=== PATIENT | female | born 1985 | race Caucasian/White ===

== ENCOUNTER 2017-10-04 23:30 | Emergency (ER) | payer MEDICARE, MEDICAID, SELFPAY ==
[2017-10-04 23:31] VITALS: BP 163/109; PULSE 110; RESP 20; TEMP 36.7; O2SAT 96; BMI 42.4
--- NOTE | 2017-10-04 23:47 | ED.VISSUMM ---
- ER Visit Summary Date of Service: 10/04/17 Chief Complaint: Abscess History of Present Illness: The patient is a 32 F increasing abscess pelvic region over the past week. History of diabetes. Using her doxycycline twice a day for the past 3 days. History of multiple abscesses in the past. States a year ago abscess in the region which progressed to her side requiring surgery by Dr. Booth. Denies fever. No nausea or vomiting. No active drainage. Physical Examination: General: Alert and oriented ?3, no acute distress HEENT: Normocephalic, atraumatic. Moist mucosa membranes Neck: supple, nontender. Cardiovascular: Regular rate and rhythm, no murmurs Respiratory: Normal breath sounds, symmetric, no distress Abdomen: Soft, nontender, nondistended Extremities: Nontender, no edema, pulses intact ?4 Neuro: no focal neurological deficits. Skin: 1.5 cm induration fluctuance mid suprapubic pelvis region. Tender palpation. Mild surrounding erythema of 3 cm in diameter, no active drainage. Test Results: Wound culture pending Emergency Department Course and Treatment: Patient presents abscess pelvic region. Started on Keflex along with her doxycycline. Abscess incised and drained. Copious exudates. Due to her history of diabetes and necrotizing infection a year ago, I did obtain wound cultures. There is no streaking on examination. Tenderness only around the site and and not up the abdomen or around the sides. No crepitus palpated. Discussed with patient continue antibiotics, of any worsening symptoms to return for reevaluation. Otherwise follow-up with her PCP. All questions were answered. Treatment Plan: Antibiotics, wound care Disposition: Discharge Impression: Pelvic abscess status post incision and drainage This note was generated with [employer] dictation software. It may contain incorrect words, spelling, and punctuation that were not noted in review of the chart prior to signing ED Disposition - Plan for ED Patient: Disposition: Home or Assisted Living Chief Complaint: Abscess Diagnosis: Pelvic abscess Instructions: ED Abscess IandD Prescriptions: Cephalexin [Keflex] 500 mg PO 4X/DAY #40 capsule Referrals: Fartun Murrell MD [Primary Care Provider] - 3-5 Days Additional Instructions: Continue your doxycycline, continue prescription of Keflex. Follow-up with your doctor, return if any worsening symptoms.
[2017-10-04] MEDS: Cephalexin 250 MG Capsule 500 MG PO (23:58)
[2017-10-05 00:49] VITALS: BP 150/109; PULSE 96; RESP 17; O2SAT 98
--- NOTE | 2017-10-05 00:49 | ED.RN ---
PT GIVEN WRITTEN AND VERBAL DISCHARGE INSTRUCTIONS. PT VERBALIZES UNDERSTANDING. PT GIVEN MESH UNDIES AND AD PLACED FOR DRESSING TO ALLOW DRAINAGE FREELY FROM WOUND PER DR. THORNE. PT AMBULATORY HOME BY SELF.
== END 2017-10-05 00:51 | disposition home or self-care (01) ==
PROVIDERS: Emergency Provider Emergency Medicine; Family Provider Internal Medicine; PCP Internal Medicine
DX: N73.9 Female pelvic inflammatory disease, unspecified (principal); K21.9 Gastro-esophageal reflux disease without esophagitis; E11.9 Type 2 diabetes mellitus without complications; I10 Essential (primary) hypertension; M79.7 Fibromyalgia; E28.2 Polycystic ovarian syndrome; F31.9 Bipolar disorder, unspecified; Z86.14 Personal history of Methicillin resistant Staphylococcus aureus infection; Z86.718 Personal history of other venous thrombosis and embolism; Z87.2 Personal history of diseases of the skin and subcutaneous tissue; Z87.891 Personal history of nicotine dependence; Z79.4 Long term (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 of insulin; Z79.84 Long term (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 of oral hypoglycemic drugs; Z79.899 Other long term (current) drug therapy
CPT/HCPCS: 45000; 87070; 87077; 87205; 99283

== ENCOUNTER → 2017-11-06 13:30 | Outpatient (CLI) | payer MEDICARE, MEDICAID, SELFPAY ==
[2017-10-01 16:32] LABS: Hematocrit 42.5 % (37-47); Hemoglobin 14.9 g/dl (12.0-15.0); Mean Corp Hgb Conc 35.1 g/gl (32-36); Mean Corpuscular Hgb 28.4 pg (27.0-32.0); Mean Corpuscular Volume 81.1 fL (81-99); Mean Platelet Vol. 13.3 fl (6.2-12.0); Platelet Count 137 K/mm3 (150-450); RBC Distribution Width CV 13.8 % (11.6-14.6); RBC Distribution Width SD 39.8 fl (35.1-43.9); Red Blood Count 5.24 M/mm3 (4.2-5.4)
[2017-10-01 16:41] LABS: Scan Indicated on CBC? Y/N NO
[2017-10-01 17:03] LABS: Anion Gap 9 (5-15); BUN 18 mg/dL (7-18); Calcium,Total 8.4 mg/dL (8.5-10.1); Chloride 100 mmol/L (98-107); Creatinine, Serum 0.94 mg/dL (0.55-1.02); EST Glomerular Filtration Rate 72 mL/min (>60); Est Glom Filt Rate - Afr Amer 87 mL/min (>60); Glucose 425 mg/dL (74-106); Potassium 4.4 mmol/L (3.5-5.1); Sodium Level 133 mmol/L (136-145)
[2017-10-01 17:04] LABS: Hemoglobin A1c 9.8 % (4.2-6.3)
== END ==
PROVIDERS: Family Provider Internal Medicine; PCP Internal Medicine; Visit Provider Obstetrics & Gynecology
DX: Z01.812 Encounter for preprocedural laboratory examination (principal); E11.9 Type 2 diabetes mellitus without complications
CPT/HCPCS: 36415; 80048; 83036; 85027; 86850; 86900

== ENCOUNTER 2018-05-08 08:19 | Emergency (ER) | payer MEDICARE, MEDICAID, SELFPAY ==
[2018-05-08 08:22] VITALS: BP 176/104; PULSE 93; RESP 18; TEMP 36.6; O2SAT 97; BMI 41.3
--- NOTE | 2018-05-08 08:31 | CT_ITS ---
STUDY: CT ABDOMEN AND PELVIS WITHOUT CONTRAST REASON FOR EXAM: Female, 33 years old. RLQ/LEG PAIN. HX-DB, HTN. HX OF ABCESS REPAIR GROIN AREA RADIATION DOSAGE (If Supplied By Facility): CTDIvol = ( 17.07 ) mGy, DLP = ( 1306.75 ) mGycm TECHNIQUE: Transaxial images were obtained from the dome of the diaphragm to the symphysis pubis without oral contrast, and without intravenous contrast. Sagittal and coronal images were reconstructed. Individualized dose optimization techniques were used for this CT. COMPARISON: None. FINDINGS: The visualized lung bases are unremarkable. The visualized portions of the heart are within normal limits. Normal liver. Normal gallbladder and extrahepatic biliary system. Normal spleen. Normal pancreas. Normal bilateral adrenal glands. Normal right kidney. Normal left kidney. Normal visualized stomach. Normal small intestine. Normal colon. There is non-visualization of the appendix. Normal abdominal aorta. Normal inferior vena cava. Normal retroperitoneum. Normal urinary bladder. Normal abdominal wall. Normal osseous structures. CT/Abdomen/Pelvis W IV Cont ONLY IMPRESSION: Normal unenhanced CT of the abdomen and pelvis. Electronically Signed: Omari Vasquez MD at 10:21 EDT Tel , Service support ,
--- NOTE | 2018-05-08 08:33 | ED.DCSUM_ITS ---
- ER Visit Summary Date of Service: 05/08/18 Chief Complaint: Abdominal pain, nausea, vomiting History of Present Illness: The patient is a 33 F with history of diabetes, hypertension, polycystic ovarian syndrome, and prior necrotizing fasciitis from hidradenitis presents to the emergency department with abdominal pain. Patient states she has had symptoms for the past 2 or 3 days. States initially, she does have some diffuse cramping across her abdomen. She been nauseated. She had 4 episodes of vomiting yesterday and today. She feels like she is unable to keep anything down. She did move her bowels normally yesterday. Today, she does feel like she has been constipated. She denies any fever, but has had chills and sweats. She does feel like the pain is migrated more towards her right lower quadrant. She denies any history of prior abdominal surgery. She denies any urinary symptoms. She is not currently sexually active. Physical Examination: Vital signs reviewed General: Well-nourished, well-developed Head: Normocephalic, atraumatic Eyes: Pupils equal and reactive, extraocular muscles intact Neck, supple, no lymphadenopathy Heart: Regular rate and rhythm Respiratory: No distress, clear bilaterally Abdomen: Soft, mildly tender with voluntary guarding right lower quadrant, nondistended, no peritoneal signs Back: Nontender Extremities: Nontender, no edema, no cords Skin: Normal color no rash Neuro: Alert and oriented, no focal or lateralizing deficits Test Results: [] Emergency Department Course and Treatment: The patient presents with nausea, vomiting, abdominal pain. IV was established. She was given antiemetics, fluids and analgesics. She had marked improvement of her symptoms and improvement of her nausea. Screening labs were obtained and were unremarkable. Her urine does show some white cells, but there is no bacteria. She has no flank pain. I do not suspect cystitis or pyelonephritis. CT demonstrates no acute intra-abdominal process. There is no inflammatory change in the right lower quadrant. On reevaluation, she continues to rest comfortably. Her repeat exam is soft nontender. At this time, I do feel the patient is safe for outpatient therapy. I do not suspect a dangerous process, but did securities counselor her that if her symptoms worsen her pain returns or migrates to the right lower quadrant return to the emergency department. She is comfortable with this plan of care. Treatment Plan: [] Disposition: Discharge Impression: 1. Abdominal pain 2. Nausea and vomiting This note was generated with [facility] dictation software. It may contain incorrect words, spelling, and punctuation that were not noted in review of the chart prior to signing ED Disposition - Plan for ED Patient: Chief Complaint: Abd Pain Instructions: ED Abdominal Pain Unkn Cause Prescriptions: Ondansetron [Zofran Odt] 4 mg PO Q8H PRN PRN #10 tab PRN Reason: Nausea Dicyclomine HCl [Bentyl] 20 mg PO TIDAC #20 cap Referrals: Fartun Murrell MD [Primary Care Provider] -
[2018-05-08] MEDS: 0.9% Normal Saline 1,000 ML 1000 ML IV (08:42)
[2018-05-08] MEDS: Morphine 4 MG/ML Syringe IV (08:45)
[2018-05-08] MEDS: Ondansetron 4 MG/2 ML Vial IV (08:45)
[2018-05-08 08:48] LABS: Absolute Lymphocyte Count 1.76 X10^3/ul (0.83-4.51); Absolute Neutrophil Count 4.6 X10^3/uL (2.0-7.7); Basophil# 0.03 X10^3/uL; Basophil% 0.4 % (0-1); Eosinophil# 0.19 X10^3/uL; Eosinophils% 2.7 % (0-5); Hematocrit 42.5 % (37-47); Hemoglobin 14.6 g/dl (12.0-15.0); Lymphocyte # 1.76 X10^3/ul (4.0); Lymphocyte % 25.2 % (19-41); Mean Corp Hgb Conc 34.4 g/gl (32-36); Mean Corpuscular Hgb 28.2 pg (27.0-32.0); Mean Corpuscular Volume 82.2 fL (81-99); Mean Platelet Vol. 12.2 fl (6.2-12.0); Monocyte% 5.7 % (0-10); Neutrophil # 4.59 X10^3/uL (2.7-7.7); Neutrophil % 65.7 % (47-70); Platelet Count 155 K/mm3 (150-450); RBC Distribution Width CV 13.9 % (11.6-14.6); RBC Distribution Width SD 41.2 fl (35.1-43.9); Red Blood Count 5.17 M/mm3 (4.2-5.4)
[2018-05-08 08:51] LABS: POSITIVE COUNT NO; POSITIVE DIFFERENTIAL NO; POSITIVE MORPHOLOGY NO
[2018-05-08 09:03] LABS: ALB/GLOB Ratio 0.9 RATIO (0.9-2.4); AST(SGOT) 44 U/L (15-37); Alanine Aminotransfer ALT/SGPT 60 U/L (13-56); Albumin, Serum 3.4 g/dL (3.2-5.0); Alkaline Phosphatase 63 U/L (45-117); Anion Gap 7 (5-15); BUN 12 mg/dL (7-18); BUN/Creat Ratio 18.7 RATIO (10-20); Calcium,Total 8.2 mg/dL (8.5-10.1); Chloride 104 mmol/L (98-107); Creatinine, Serum 0.64 mg/dL (0.55-1.02); EST Glomerular Filtration Rate 112 mL/min (>60); Est Glom Filt Rate - Afr Amer 136 mL/min (>60); Estimated Creatinine Clearance 123.76 ml/min; Globulin 3.7 g/dL (2.2-4.2); Glucose 265 mg/dL (74-106); Lipase 62 U/L (73-393); Potassium 4.3 mmol/L (3.5-5.1); Protein, Total 7.1 g/dL (6.4-8.2); Sodium Level 137 mmol/L (136-145)
[2018-05-08 09:22] LABS: Pregnancy, Serum, hCG Quali. NEGATIVE Negative (0-9 Nonpreg)
[2018-05-08 10:17] LABS: Mucous, Urine 0 SEEN /hpf (<or=2+)
[2018-05-08 10:20] LABS: Color, Urine Yellow (Yellow); Glucose, Dipstick 1000 mg/dl (Normal); Ketone-Dipstick Negative (Negative); Leukocyte Esterase-Dipstick 100 /ul (Negative); Nitrite-Dipstick Negative (Negative); Occult Blood-Urine 10 /ul (Negative); Protein-Dipstick Negative (Negative); Urine Bilirubin Dipstick Negative (Negative); Urine Clarity Sl. Cloudy (Clear); Urine Urobilinogen Normal (Normal); Urine pH 6.5 (5.0 - 8.0)
[2018-05-08 10:27] LABS: Bacteria 0 SEEN /hpf (None Seen); Red Blood Cells-Urine 0-5 SEEN /hpf (0-5); Squamous Epithelial Cells - UA 0-5 SEEN /hpf (5-10); White Blood Cells 10-25 SEEN /hpf (0-5)
[2018-05-08 10:44] VITALS: BP 122/77; PULSE 68; RESP 15; O2SAT 98
== END 2018-05-08 10:45 | disposition home or self-care (01) ==
LOC: ED 08:47
PROVIDERS: Emergency Provider Emergency Medicine; Family Provider Internal Medicine; PCP Internal Medicine
DX: R10.31 Right lower quadrant pain (principal); R11.2 Nausea with vomiting, unspecified; K59.00 Constipation, unspecified; R68.83 Chills (without fever); E11.9 Type 2 diabetes mellitus without complications; I10 Essential (primary) hypertension; E28.2 Polycystic ovarian syndrome; E66.9 Obesity, unspecified; Z79.84 Long term (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 of oral hypoglycemic drugs; Z79.4 Long term (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 of insulin; Z79.899 Other long term (current) drug therapy; Z72.0 Tobacco use
CPT/HCPCS: 74177; 80053; 81001; 83690; 84703; 85025; 96361; 96374; 96375; 99283; J7030; Q9967; A4216; J2405

== ENCOUNTER 2018-08-11 13:27 | Emergency (ER) | payer MEDICARE, MEDICAID, SELFPAY ==
[2018-08-11 13:28] VITALS: BP 175/83; PULSE 95; RESP 18; TEMP 36.9; O2SAT 95; BMI 43.3
--- NOTE | 2018-08-11 13:57 | ED.VISSUMM ---
- ER Visit Summary Date of Service: 08/11/18 Chief Complaint: [] Blood sugar of 500 days History of Present Illness: The patient is a 33 F [] history of insulin-dependent diabetes mellitus takes a long-acting injection x1 then she uses Humalog per sliding scale in addition to metformin she is been using that can get her blood sugar under 300 normally runs around 500, she is taking the appropriate diet no head neck chest or abdominal pain, no UTI or GI symptoms is not sure why her blood sugars not responding she has had this happen in the past Physical Examination: [] Vital signs are within normal range General, no distress resting comfortably HEENT is generally unremarkable The neck is supple no adenopathy Cardiovascular, regular rate and rhythm Lungs, clear bilateral Abdomen, soft nontender Extremities, no clubbing cyanosis or edema Neurologic, awake alert answering questions appropriately moving all 4 extremities Test Results: [] Emergency Department Course and Treatment: [] Patient's in no distress clinically she looks well she has no history of DKA, her initial blood sugar was about 287 and she had taken insulin a few hours ago, we was treated with aggressive with IV fluids 10 units of Humalog IV push insulin, reevaluation she is resting comfortably her blood sugars are in the 300 range she is feeling better she has seen primary care in the past, she is also seen booth cashier for all the above she is comfortable discharge home and I explained her she should 1 stick to a very strict diabetic diet take her meds as prescribed follow-up of all of her outpatient providers and she is comfortable with that plan and was discharged home Treatment Plan: [] Disposition: [] Home stable Impression: [] Insulin-dependent diabetes mellitus with poor control This note was generated with [employer] dictation software. It may contain incorrect words, spelling, and punctuation that were not noted in review of the chart prior to signing ED Disposition - Plan for ED Patient: Chief Complaint: Hyperglycemia Referrals: Fartun Murrell MD [Primary Care Provider] -
[2018-08-11] MEDS: 0.9% Normal Saline 1,000 ML 1000 ML IV (14:23)
[2018-08-11 14:25] LABS: Absolute Neutrophil Count 7.5 X10^3/uL (2.0-7.7); Basophil# 0.02 X10^3/uL; Basophil% 0.2 % (0-1); Differential Indicated SCAN CRITERIA MET; Eosinophil# 0.16 X10^3/uL; Eosinophils% 1.5 % (0-5); Hematocrit 42.1 % (37-47); Hemoglobin 14.3 g/dl (12.0-15.0); Lymphocyte % 20.7 % (19-41); Mean Corpuscular Hgb 28.1 pg (27.0-32.0); Mean Corpuscular Volume 82.7 fL (81-99); Mean Platelet Vol. 12.4 fl (6.2-12.0); Monocyte# 0.74 X10^3/uL; Neutrophil # 7.49 X10^3/uL (2.7-7.7); Neutrophil % 70.3 % (47-70); POSITIVE COUNT NO; POSITIVE DIFFERENTIAL NO; POSITIVE MORPHOLOGY YES; Platelet Count 158 K/mm3 (150-450); RBC Distribution Width CV 14.5 % (11.6-14.6); RBC Distribution Width SD 43.8 fl (35.1-43.9); Red Blood Count 5.09 M/mm3 (4.2-5.4); White Blood Count 10.6 K/mm3 (4.4-11.0)
--- NOTE | 2018-08-11 14:35 | NURSING ---
CHEMISTRIES HEMOLIZED
[2018-08-11 14:36] LABS: Bedside Glucose 339 mg/dL (70-110)
[2018-08-11 15:06] LABS: Bedside Glucose 287 mg/dL (70-110)
[2018-08-11 15:13] LABS: Anion Gap 8 (5-15); BUN 15 mg/dL (7-18); BUN/Creat Ratio 21.1 RATIO (10-20); Calcium,Total 8.4 mg/dL (8.5-10.1); Chloride 103 mmol/L (98-107); Creatinine, Serum 0.71 mg/dL (0.55-1.02); EST Glomerular Filtration Rate 99 mL/min (>60); Est Glom Filt Rate - Afr Amer 120 mL/min (>60); Estimated Creatinine Clearance 111.56 ml/min; Glucose 319 mg/dL (74-106); Potassium 4.3 mmol/L (3.5-5.1); Sodium Level 136 mmol/L (136-145)
[2018-08-11] MEDS: 0.9% Normal Saline 1,000 ML 999 ML IV (15:24)
--- NOTE | 2018-08-11 15:44 | ED.DEP ---
ED Disposition - Plan for ED Patient: Chief Complaint: Hyperglycemia Instructions: ED Hyperglycemia Diabetic Referrals: Fartun Murrell MD [Primary Care Provider] -
[2018-08-11 15:51] LABS: Pregnancy, Serum, hCG Quali. NEGATIVE Negative (0-9 Nonpreg)
[2018-08-11 16:11] LABS: Bacteria 0 SEEN /hpf (None Seen); Mucous, Urine 0 SEEN /hpf (<or=2+); Red Blood Cells-Urine 0 SEEN /hpf (0-5); White Blood Cells 0 SEEN /hpf (0-5)
[2018-08-11 16:12] VITALS: BP 124/67; PULSE 82; RESP 16; O2SAT 97
[2018-08-11 16:14] LABS: Color, Urine Yellow (Yellow); Glucose, Dipstick 1000 mg/dl (Normal); Ketone-Dipstick Negative (Negative); Leukocyte Esterase-Dipstick Negative /ul (Negative); Nitrite-Dipstick Negative (Negative); Occult Blood-Urine Negative /ul (Negative); Protein-Dipstick Negative (Negative); Specific Gravity, Urine 1.015 (1.002-1.030); Urine Bilirubin Dipstick Negative (Negative); Urine Clarity Sl. Cloudy (Clear); Urine Urobilinogen Normal (Normal)
[2018-08-11 16:47] VITALS: BP 125/77; PULSE 84; RESP 16; O2SAT 98
[2018-08-11 16:56] LABS: Squamous Epithelial Cells - UA 0-5 SEEN /hpf (5-10)
== END 2018-08-11 16:48 | disposition home or self-care (01) ==
LOC: ED 14:20
PROVIDERS: Emergency Provider Emergency Medicine; Family Provider Internal Medicine; PCP Internal Medicine
DX: E11.65 Type 2 diabetes mellitus with hyperglycemia (principal); Z79.4 Long term (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 of insulin
CPT/HCPCS: 36415; 80048; 81001; 82009; 82962; 84703; 85025; 96361; 96374; 99283; J7030; A4216

== ENCOUNTER 2018-12-05 19:32 | Emergency (ER) | payer MEDICARE, MEDICAID, SELFPAY ==
[2018-12-05 19:33] VITALS: BP 163/84; PULSE 123; RESP 17; TEMP 38; O2SAT 97
[2018-12-05 19:34] VITALS: BP 163/84; PULSE 121; RESP 17; TEMP 38; O2SAT 97; BMI 43.4
[2018-12-05] MEDS: Doxycycline 100 MG CAPSULE PO (20:54)
[2018-12-05 21:24] VITALS: BP 151/90; PULSE 98; RESP 16; TEMP 37.4; O2SAT 98
--- NOTE | 2018-12-05 22:06 | ED.VISSUMM ---
- ER Visit Summary Date of Service: 12/05/18 Chief Complaint: Abscess History of Present Illness: The patient is a 33 F who presents with an abscess. The abscess is in her left gluteal fold. On arrival to the ED, it has started to drain. The patient has a history of abscesses in the past and has had necrotizing fasciitis. She did have a leftover prescription and took 1 dose of doxycycline today. She is having low-grade fevers. No other symptoms. Physical Examination: Temp is 100.4. Repeat is 99.4. She was initially tachycardic in triage, but on my evaluation, heart rate is 93. She appears uncomfortable but otherwise well. Exam was chaperoned by Carol PINEDA. She has an area of induration about half the size of her palm to her left lower gluteal fold. This does not involve the rectum or INTERLACER structures. There is a central area which is draining a serosanguineous drainage. The area is erythematous and slightly warm. Test Results: None performed Emergency Department Course and Treatment: The area was infiltrated with lidocaine. A stellate incision was performed. Minimal serosanguineous drainage noted. Wound was left open. Dressed. Patient was advised to soak the area. Will treat with doxycycline. Patient was advised to follow-up with primary care. She was advised to return if she has worsening issues as she could require repeat procedure or other care, possibly including hospitalization. There is no evidence of nec fasc?or other complications at this time. Treatment Plan: Doxycycline, soaks, monitor for new or worsening issues at home Disposition: Discharge tomorrow Impression: 1. Left gluteal abscess This note was generated with [employer] dictation software. It may contain incorrect words, spelling, and punctuation that were not noted in review of the chart prior to signing ED Disposition - Plan for ED Patient: Disposition: Home or Assisted Living Instructions: ED Abscess IandD Prescriptions: RX: Doxycycline 100 mg PO BID #20 cap Referrals: Fartun Murrell MD [Primary Care Provider] -
--- NOTE | 2018-12-05 22:09 | ED.DEP ---
ED Disposition - Plan for ED Patient: Instructions: ED Abscess IandD Prescriptions: Doxycycline 100 mg PO BID #20 cap Referrals: Fartun Murrell MD [Primary Care Provider] -
[2018-12-05 22:25] VITALS: BP 141/68; PULSE 95; RESP 19; TEMP 37.2; O2SAT 96
== END 2018-12-05 22:26 | disposition home or self-care (01) ==
PROVIDERS: Emergency Provider Emergency Medicine; Family Provider Internal Medicine; PCP Internal Medicine
DX: L02.31 Cutaneous abscess of buttock (principal); E11.9 Type 2 diabetes mellitus without complications; I10 Essential (primary) hypertension; Z79.4 Long term (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 of insulin; Z79.84 Long term (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 of oral hypoglycemic drugs; Z79.899 Other long term (current) drug therapy; Z72.0 Tobacco use
CPT/HCPCS: 10060; 99283

== ENCOUNTER 2019-06-10 22:51 | Emergency (ER) | payer MEDICARE, SELFPAY ==
[2019-06-10 22:52] VITALS: BP 167/94; PULSE 106; RESP 15; TEMP 36.7; O2SAT 97; BMI 43.2
--- NOTE | 2019-06-10 23:27 | ED.VIS.GEN ---
History of Present Illness Chief Complaint: Abscess Informant: Patient Onset: Days - 5 Context: Gradual Onset Timing: Continuous Current Severity: Severe Maximum Severity: Severe Narrative: She is a 34-year-old female with history of hidradenitis suppurativa presenting with an abscess to her left underarm. She states is been developing for the past 5 days. She had multiple abscesses in this area and on her body. She has redness around it which is what concerned her. She also hard time sleeping because of the pain. There is been no spontaneous drainage. Patient's been taking ibuprofen for the pain. She has appointment to see her surgeon, Dr. Caraballo, tomorrow for this. She is currently on Bactrim for urinary tract infection. Patient denies any associated fever, chills, nausea, vomiting or other symptoms. Prior similar symptoms: Yes - Abscess Recent Illness/Hospitalization: No Past Medical History - Allergies and Home Meds Allergies/Adverse Reactions: Allergies amoxicillin [Amoxicillin] Allergy (Verified 06/10/19 22:55) Unknown asenapine maleate [From Saphris] Allergy (Verified 06/10/19 22:55) Unknown Primary Care Physician: Fartun Murrell MD [Primary Care Provider] - Past Medical History: - - Hidradenitis supports, diabetes, treated necrotizing fasciitis of the groin Surgical History: arthroscopy, knee - Left knee for torn meniscus, - - Multiple incision and drainage of abscesses in the left axilla, surgical intervention in the left groin area as a result of necrotizing fasciitis Smoking Status: Current every day smoker - Family History Maternal Family History: Family History (Last Updated 10/01/17 @ 14:28 by Beronica Constantino) Mother Hypertension Brain aneurysm Father Diabetes Hypertension Grandmother Cancer Diabetes Hypertension Heart disease CVA (cerebral vascular accident) Breast cancer Grandfather Kidney disease Hypertension CVA (cerebral vascular accident) Family History: Reports: Cancer, - Paternal Family History: Family History (Last Updated 10/01/17 @ 14:28 by Beronica Constantino) Mother Hypertension Brain aneurysm Father Diabetes Hypertension Grandmother Cancer Diabetes Hypertension Heart disease CVA (cerebral vascular accident) Breast cancer Grandfather Kidney disease Hypertension CVA (cerebral vascular accident) Family History: Reports: Diabetes, Hypertension Review of Systems All systems negative except as indicated Skin: Reports: Abscess - Left underarm Physical Exam Vital Signs/Narrative: Vital Signs Temp Pulse Resp BP Pulse Ox 06/10/19 22:52 98.0 F 106 H 15 167/94 H 97 Inital Vital Signs reviewed: Yes General: Well nourished, Well developed, Obese, No Acute Distress Head: Normocephalic, Atraumatic Eyes: Perrl, EOMI ENT: Moist mucous membranes, No rhinorrhea Neck: Supple, Nontender Cardiovascular: Regular rate, Regular rhythm, No murmurs Respiratory: No distress, CTA bilaterally, Chest nontender Abdomen: Soft, Nontender, Nondistended, Normal bowel sounds Back: Nontender, Normal Inspection Extremities: Nontender, No edema Skin: No rash, - - 4 cm x 3 cm area of induration with 2 separate areas of fluctuance at the left axilla, surrounding erythematous changes to the skin Neurological: Alert, Oriented x3, Cranial nerves II-XII grossly intact, Normal Strength, Normal Sensation Psychological: Normal affect, Normal Mood Diagnostic/Tx/Re-eval - Medical Decision Making Evaluated for abscess to her left upper arm. She appears nontoxic in no acute distress. In addition to skin changes consistent with an abscess she does have some surrounding erythema and warmth concerning for an associated cellulitis. Incision and drainage performed. Patient is Chandu on Bactrim will also be placed on Keflex. She is follow-up with her surgeon tomorrow for reevaluation and wound check. Patient is given Motrin for pain control. She is otherwise hemodynamically stable. Patient is counseled on signs and symptoms requiring return to the emergency room. Patient verbalizes agreement and understand this plan. Patient discharged home in stable and improved condition. Procedures Procedure(s): Incision and drainage. Performed by Dr. Radha Bay MD. Patient anesthetized with 1% lidocaine. Once adequate analgesia was achieved to cruciform incisions were made over the 2 areas of fluctuance. A significant amount of purulent drainage was expressed. Areas were explored with hemostats to open up any loculations and then irrigated. Abscess was left open to encourage further drainage. No packing was placed. No immediate complications and patient tolerated procedure well. ED Disposition - Plan for ED Patient: Disposition: Home or Assisted Living Diagnosis: Abscess of left axilla Instructions: ABSCESS, Incision and Drainage Prescriptions: Ibuprofen 600 mg PO 4X/DAY PRN #20 tab PRN Reason: Pain Or Fever Prescription Printed Cephalexin [Keflex] 500 mg PO Q6 #28 cap Prescription Printed Referrals: Fartun Murrell MD [Primary Care Provider] - Additional Instructions: Continue taking the Bactrim that you are already on as well as the new antibiotic prescribed today. Make sure you keep your follow-up appointment with Dr. Caraballo. Return the emergency room with worsening symptoms. Apply warm compresses to the area to encourage further drainage.
[2019-06-10] MEDS: Ibuprofen 600 MG Tablet PO (23:43)
[2019-06-10] MEDS: Acetaminophen 500 MG Tablet 1000 MG PO (23:43)
== END 2019-06-10 23:58 | disposition home or self-care (01) ==
PROVIDERS: Emergency Provider Emergency Medicine; Family Provider Internal Medicine; PCP Internal Medicine
DX: L02.412 Cutaneous abscess of left axilla (principal); N39.0 Urinary tract infection, site not specified; E66.9 Obesity, unspecified; L73.2 Hidradenitis suppurativa; E11.9 Type 2 diabetes mellitus without complications; Z79.4 Long term (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 of insulin; Z79.84 Long term (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 of oral hypoglycemic drugs; Z79.899 Other long term (current) drug therapy; F17.200 Nicotine dependence, unspecified, uncomplicated
CPT/HCPCS: 10060; 99285

== ENCOUNTER → 2020-01-22 13:01 | Outpatient (CLI) | payer MEDICARE, SELFPAY ==
[2020-01-22 11:10] VITALS: BMI 43.2
[2020-01-28 03:20] LABS: HPV APTIMA, High Risk Negative (Negative)
== END ==
PROVIDERS: PCP Internal Medicine; Referring Provider Nurse Practitioner Women's Health; Visit Provider Nurse Practitioner Women's Health
DX: Z12.4 Encounter for screening for malignant neoplasm of cervix (principal); R87.619 Unspecified abnormal cytological findings in specimens from cervix uteri
CPT/HCPCS: 87624; 88175; G0145

== ENCOUNTER 2020-07-09 10:13 | Emergency (ER) | payer MEDICARE, MEDICAID, SELFPAY ==
[2020-01-22 11:10] VITALS: BMI 43.2
[2020-07-09 10:13] VITALS: BP 133/89; PULSE 107; RESP 18; TEMP 36.6; O2SAT 99; BMI 40.3
--- NOTE | 2020-07-09 11:03 | ED.VISSUMM ---
- ER Visit Summary Date of Service: 07/09/20 Chief Complaint: Abscess History of Present Illness: The patient is a [address] Murrell and has seen Dr. Avitia in the past. She has a history of hidradenitis. She reports that she has an abscess in the right suprapubic region that began 4 to 5 days ago. It is an aching pain at rest that is 4-10 severity. She reports that sharp with walking 7 out of 10 in severity. She is taking ibuprofen for pain. She denies any constitutional symptoms. No fever, chills, nausea, or vomiting. Physical Examination: Vitals: Stable. Afebrile. General: Well-nourished and well-developed. Head: Normocephalic atraumatic. Neck: Supple, no lymphadenopathy. No JVD. Nontender. Cardiovascular: Regular rate and rhythm. No murmurs. Respiratory: No respiratory distress. Clear to auscultation bilaterally. Abdominal: Soft, nontender, nondistended, normal bowel sounds. No guarding, rebound, or peritoneal signs. Back: Nontender. Extremities: Nontender, no edema. Skin: To the right side of her mons pubis there is a 2 cm fluctuant area with approximately 2 cm surrounding erythema and induration. There is no crepitus. It is moderately tender to palpation. Neurologic: Alert and oriented ?3. Cranial nerves II through XII are intact. Normal strength and sensation. Psych: Normal affect. Emergency Department Course and Treatment: Patient was given a dose of Dilaudid IM. She had an I&D performed. She tolerated it well. She was given Keflex, Bactrim, and Zofran p.o. Treatment Plan: Patient will be discharged on Keflex, Bactrim, Zofran, and Percocet. Instructed to follow-up with Dr. Avitia in 2 days for a wound check. Return to the emergency department for any worsening symptoms. Disposition: To home in improved and stable condition. Impression: 1. Abscess to mons pubis. 2. Incision and drainage. Procedure Note: Abscess was cleansed with chlorhexidine soap. Anesthetized with 1% lidocaine without epinephrine. An incision was made with an 11 scalpel blade. A moderate amount of pus was drained. Curved hemostats were used to break up loculations. The wound was copiously irrigated with normal saline. It was loosely packed with iodoform gauze. The patient tolerated it well. This note was generated with [employer] dictation software. It may contain incorrect words, spelling, and punctuation that were not noted in review of the chart prior to signing ED Disposition - Plan for ED Patient: Instructions: ED Abscess Incision And Drainage Prescriptions: Smz/Tmp Ds [Bactrim Ds] 1 tablet PO BID #14 tablet Cephalexin [Keflex] 500 mg PO Q6 #40 capsule Oxycodone HCl/Acetaminophen [Percocet 5/325] 1 tablet PO Q6H PRN PRN 3 Days #12 tablet PRN Reason: Pain Ondansetron [Zofran Odt] 4 mg PO Q8H PRN PRN #10 tablet PRN Reason: Nausea Referrals: Valeriy Avitia MD [STAFF PHYSICIAN] - 2 Days for wound check
[2020-07-09] MEDS: Ondansetron ODT 4 MG Tablet PO (11:05)
[2020-07-09] MEDS: Cephalexin 500 MG Capsule PO (11:07)
[2020-07-09] MEDS: Smz/Tmp Ds Tablet 1 TABLET PO (11:07)
[2020-07-09] MEDS: HYDROmorphone 1 MG/ML Syringe IM (11:08)
[2020-07-09] MEDS: Lidocaine 1% (20 ml mdv) 20 ML Vial INFILT (11:14)
== END 2020-07-09 12:26 | disposition home or self-care (01) ==
LOC: ED 12:10
PROVIDERS: Emergency Provider Emergency Medicine; PCP Internal Medicine
DX: L02.215 Cutaneous abscess of perineum (principal); L73.2 Hidradenitis suppurativa; I10 Essential (primary) hypertension; E11.9 Type 2 diabetes mellitus without complications; Z79.4 Long term (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 of insulin; Z79.899 Other long term (current) drug therapy; F17.200 Nicotine dependence, unspecified, uncomplicated
CPT/HCPCS: 10060; 96372; 99282

== ENCOUNTER 2021-01-17 17:47 | Emergency (ER) | payer MEDICARE, MEDICAID, SELFPAY ==
[2021-01-17 17:47] VITALS: BP 163/94; PULSE 107; RESP 18; TEMP 35.5; O2SAT 96; BMI 42.4
[2021-01-17] MEDS: Lidocaine 1% (20 ml mdv) 20 ML Vial INFILT (21:27)
--- NOTE | 2021-01-17 23:11 | EDS_ITS ---
HPI History of Present Illness Chief Complaint: Abscess Narrative Narrative: Patient presenting due to concern for labial abscess. Patient has had a history of these in the past. Patient states over the course of the last 4 days she has had progressively worsening of her right labial abscess. She states that there is some mild spontaneous drainage associated with this, but is continuing to get larger and causing her more pain. She states that is causing her some generalized malaise but she denies any fevers. She does have an underlying history of diabetes. Review of systems otherwise negative. [facility] Medical History Anxiety and depression Fibromyalgia History of necrotising fasciitis Hypertension Home Medications lisinopril 20 mg PO DAILY 04/23/16 [History Last Taken 11/19/16] loratadine 10 mg PO DAILY 04/23/16 [History Last Taken 11/19/16] metformin 1,000 mg PO BIDCM 04/23/16 [History Last Taken 11/19/16] insulin degludec 70 unit SQ DAILY 09/30/16 [History Last Taken 11/19/16] insulin lispro unit SQ TID 12/05/18 [History Last Taken Unknown] Cogentin 0.5 mg PO/SL BID PRN 07/09/20 [History Last Taken Unknown] fluphenazine decanoate 25 mg IJ X1 07/09/20 [History Last Taken Unknown] sulfamethoxazole-trimethoprim [Bactrim DS] 1 tab PO BID #20 tab 01/17/21 [Rx Last Taken Unknown] Allergy/AdvReac Type Severity Reaction Status Date / Time amoxicillin [Amoxicillin] Allergy Unknown Verified 01/17/21 17:50 asenapine maleate Allergy Unknown Verified 01/17/21 17:50 [From Saphris] Family History Mother Hypertension Brain aneurysm Father Diabetes Hypertension Grandmother Cancer liver throat kidney Diabetes Hypertension Heart disease CVA (cerebral vascular accident) Breast cancer Grandfather Kidney disease Hypertension CVA (cerebral vascular accident) Surgical History H/O lateral meniscus repair of left knee Social History Smoking Status: Current every day smoker tobacco type: cigarettes alcohol intake: never substance use type: does not use caffeine: Yes frequency: 5-6 times per week seatbelt use: always do you feel safe at home: Yes additional social history: Jonathan- Unemployed Patient is on disability ROS ROS ED Constitutional Constitutional ED: Reports other Details: Malaise ENT ENT ED: Denies rhinorrhea Cardiovascular Cardiovascular: Denies chest pain Respiratory/Chest Respiratory/Chest: Denies cough or dyspnea Gastrointestinal Gastrointestinal: Denies abdominal pain, diarrhea, nausea or vomiting Genitourinary Genitourinary ED: Reports other Details: Labial abscess ; Denies dysuria or hematuria Musculoskeletal Musculoskeletal: Denies back pain Integumentary Denies rash Neurologic Neurologic: Denies paresthesias or weakness Psychiatric Psychiatric: Denies depression Endocrine Endocrinology: Denies fatigue Allergic/Immunologic Allergic/Immunologic ED: Denies urticaria EXAM Physical Exam Const Vital Signs: 01/17/21 17:47 Temperature 96 F L Temperature Source Temporal Pulse Rate 107 H Respiratory Rate 18 Blood Pressure 163/94 H Blood Pressure Mean 117 Pulse Ox 96 Oxygen Delivery Method Room Air Positive well nourished and well developed General Appearance ED: well developed and NAD HEENT Reports moist mucous membranes Negative for trauma or tenderness Eyes EOMs intact bilaterally Neck no lymphadenopathy, supple and no JVD Chest Wall inspection of chest normal Resp normal respiratory effort and clear to auscultation bilaterally Cardio regular rhythm, no murmurs and peripheral pulses 2+ throughout Rate: other Other Details: Mild tachycardia GI normal to inspection, nondistended, normoactive bowel sounds, non-tender and no masses Palpation: soft Narrative: Chaperoned exam shows evidence of a inferior right-sided labial abscess. There is a small eschar noted on this, there is active purulent drainage. Palpable fluctuance measures about 3 cm and there is some surrounding erythema. No soft tissue gas noted. No streaking. There is tenderness to palpation in the area. Back/Spine normal to inspection Extremity normal to inspection General Extremety ED: Negative for tenderness Neuro oriented x3 and no sensory deficits noted Sensorium / Orientation: alert Motor Exam: strength 5/5 throughout Psych mental status grossly normal Skin no rashes or lesions noted MDM MDM MDM Narrative Medical decision making narrative: Patient presented with a labial abscess. There are no signs that this is a Rosalva's gangrene or other serious etiology that would require work-up or imaging. It was addressed as noted in the procedure note. Patient does have an element of some cellulitis associated with this, I will discharge the patient on Bactrim. 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 She understands signs and symptoms which to return. Procedures Other Procedures Procedure(s): Patient was placed in the lithotomy position. Subject Scientific Research was present. Abscess was cleansed with alcohol swabs. Was anesthetized with a total of 10 cc 1% lidocaine via a field block. A 15 blade was utilized, and a cruciate incision was made over the greatest area of fluctuance. A moderate amount of fluctuance was expressed. Loculations were broken with curved hemostats. It was irrigated with sterile saline. It was left open to drain. Patient tolerated this well. Discharge Plan Triage Chief Complaint: Abscess ED Provider: Isaias Guo Dx/Rx/DC Orders Clinical Impression: Abscess of labia Instructions: ED Abscess Incision And Drainage Prescriptions: New sulfamethoxazole-trimethoprim [Bactrim DS] 800-160 mg tablet 1 tab PO BID Qty: 20 RF: 0 No Action metformin 500 MG tablet 1,000 mg PO BIDCM RF: 0 lisinopril 20 MG tablet 20 mg PO DAILY RF: 0 loratadine 10 MG tablet 10 mg PO DAILY RF: 0 insulin degludec 100 UNIT/ML insulin pen 70 unit SQ DAILY RF: 0 insulin lispro 100 UNIT/ML cartridge SQ TID RF: 0 fluphenazine decanoate 25 MG/ML solution 25 mg IJ X1 RF: 0 Cogentin 0.5 mg PO/SL BID PRN (Reason: restless legs) RF: 0 Primary Care Provider: Fartun Murrell Referrals: Fartun Murrell MD [Primary Care Provider] - Beulah Sanabria MD [STAFF PHYSICIAN] - 2 Days for wound check Disposition Disposition: Home, self care Discharge Date/Time: 01/17/21 23:19
[2021-01-17] MEDS: Smz/Tmp Ds Tablet 1 TABLET PO (23:17)
== END 2021-01-17 23:19 | disposition home or self-care (01) ==
PROVIDERS: Emergency Provider Emergency Medicine; PCP Internal Medicine
DX: N76.4 Abscess of vulva (principal); F17.210 Nicotine dependence, cigarettes, uncomplicated; E11.9 Type 2 diabetes mellitus without complications; I10 Essential (primary) hypertension; Z79.899 Other long term (current) drug therapy; Z79.4 Long term (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 of insulin
CPT/HCPCS: 56405; 10060; 99283

== ENCOUNTER 2021-01-19 15:46 | Inpatient (IN) | payer MEDICARE, MEDICAID, SELFPAY ==
[2021-01-19 12:37] VITALS: BMI 35.4
[2021-01-19 15:25] VITALS: BP 157/106; PULSE 125; RESP 18; TEMP 36.9; O2SAT 98
[2021-01-19 15:38] VITALS: BMI 34.9
--- NOTE | 2021-01-19 15:39 | HP.PCM_ITS ---
HPI - General General Date of Admission: 01/19/21 HPI Narrative CLAYTON MCDANIEL, is a 35 F who presents with persistent vulvar abscess. She has a history of uncontrolled diabetes and high blood pressure, morbid obesity and hidradenitis. Beginning 4 days ago she noticed pain and swelling and growing infection in her right labia. She presented to the ER 2 days later after it started spontaneously draining and the further opened it and started her on Bactrim. Today she presented the office for follow-up in has significant necrotic tissue and persistent pain in the area and erythema. She denies any fever. She admits fatigue, malaise, decreased appetite, and body aches. She also complains of nausea. [facility] Medical History (Updated 01/19/21 @ 15:[address] Beulah Sanabria MD) Anxiety and depression Bipolar disorder Diabetes mellitus type 2, uncontrolled Fibromyalgia History of necrotising fasciitis History of venous thromboembolism Hydradenitis Hypertension Hypertension Morbid obesity Polycystic ovary Home Medications lisinopril 20 mg PO DAILY 04/23/16 [History Last Taken 01/18/21] loratadine 10 mg PO DAILY 04/23/16 [History Last Taken 01/18/21] metformin 1,000 mg PO BIDCM 04/23/16 [History Last Taken 01/18/21] insulin degludec 70 unit SQ DAILY 09/30/16 [History Last Taken 01/18/21] insulin lispro unit SQ TID 12/05/18 [History Last Taken 01/18/21] Cogentin 0.5 mg PO/SL BID PRN 07/09/20 [History Last Taken Unknown] fluphenazine decanoate 25 mg IJ X1 07/09/20 [History Last Taken Unknown] sulfamethoxazole-trimethoprim [Bactrim DS] 1 tab PO BID #20 tab 01/17/21 [Rx Last Taken 01/19/21] Allergy/AdvReac Type Severity Reaction Status Date / Time amoxicillin [Amoxicillin] Allergy Unknown Verified 01/17/21 17:50 asenapine maleate Allergy Unknown Verified 01/17/21 17:50 [From Saphris] Family History Mother Hypertension Brain aneurysm Father Diabetes Hypertension Grandmother Cancer liver throat kidney Diabetes Hypertension Heart disease CVA (cerebral vascular accident) Breast cancer Grandfather Kidney disease Hypertension CVA (cerebral vascular accident) Surgical History H/O lateral meniscus repair of left knee Social History Smoking Status: Current every day smoker tobacco type: cigarettes alcohol intake: never substance use type: does not use caffeine: Yes frequency: 5-6 times per week seatbelt use: always do you feel safe at home: Yes additional social history: Jonathan- Unemployed Patient is on disability ROS Review of Systems ROS Unobtainable: due to mental status and other Constitutional Constitutional: Reports systems reviewed and no addt'l complaints, except as documented, fatigue and malaise; Denies as per HPI, change in weight, fever(s), weakness or other Eyes Eyes: Reports systems reviewed and no addt'l complaints, except as documented; Denies as per HPI, change in vision or other ENT HEENT: Reports systems reviewed and no addt'l complaints, except as documented Respiratory/Chest Respiratory/Chest: Reports systems reviewed and no addt'l complaints, except as documented Gastrointestinal Gastrointestinal: Reports systems reviewed and no addt'l complaints, except as documented and as per HPI Genitourinary Genitourinary: Reports as per HPI Musculoskeletal Musculoskeletal: Reports systems reviewed and no addt'l complaints, except as documented Neurologic Neurologic: Reports systems reviewed and no addt'l complaints, except as documented Psychiatric Psychiatric: Reports systems reviewed and no addt'l complaints, except as documented Endocrine Endocrinology: Reports systems reviewed and no addt'l complaints, except as documented Hematologic/Lymphatic Hematologic/Lymphatic: Reports systems reviewed and no addt'l complaints, except as documented Vital Signs Vital Signs Vital Signs: 01/19/21 15:25 Temperature 98.4 F Temperature Source Oral Pulse Rate 125 H Respiratory Rate 18 Blood Pressure 157/106 H Blood Pressure Mean 123 Blood Pressure Source Monitor Blood Pressure Position Sitting Blood Pressure Location Right Arm Pulse Ox 98 Oxygen Delivery Method Room Air Weight Weight: 230 lb 2.601 oz Body Mass Index (BMI) 34.9 Physical Exam Const alert, oriented x3 and no apparent distress HEENT normocephalic Head and Scalp: atraumatic Eyes EOMs intact bilaterally and conjunctivae normal Neck full ROM, no lymphadenopathy, supple and thyroid normal General: trachea midline Lymph Lymphatic: no lymphadenopathy noted Resp normal respiratory effort, no retractions, no use of accessory muscles and clear to auscultation bilaterally Cardio Rate: tachycardic GI normal to inspection, nondistended, normoactive bowel sounds, soft to palpation, non-distended and no masses Inspection: Negative for abdominal distention Narrative: Right 5 x 4 vulvar abscess with surrounding erythema and induration with necrotic central tissue no tracking deeper palpated, significant tenderness Back/Spine no CVA tenderness Extremity normal to inspection Skin no rashes or lesions noted Neuro moves all extremities and deep tendon reflexes 2+ bilaterally Psych mental status grossly normal Assessment & Plan Assessment/Plan (1) Hypertension: QUALIFIERS: Hypertension type: essential hypertension Qualified Code(s): I10 - Essential (primary) hypertension (2) History of venous thromboembolism: (3) Hydradenitis: (4) Diabetes mellitus type 2, uncontrolled: QUALIFIERS: Diabetes mellitus complication status: without complication Diabetes mellitus [facility] insulin use: with [facility] use Qualified Code(s): E11.65 - Type 2 diabetes mellitus with hyperglycemia; 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 for possible debridement. Patient is a known brittle diabetic not well controlled so hospitalist consulted for management. Patient has history of VTE so we will add SCDs and then blood thinners after surgery if needed. Continue home meds. Charges/Coding Visit Charges Inpatient E&M: 96092 Init Hosp L3
[2021-01-19 16:11] LABS: Bedside Glucose 481 mg/dL (70-110)
[2021-01-19 16:28] LABS: Absolute Lymphocyte Count 2.39 X10^3/uL (0.83-4.51); Absolute Neutrophil Count 6.7 X10^3/uL (2.0-7.7); Basophil# 0.09 X10^3/uL; Basophil% 0.9 % (0-1); Eosinophil# 0.23 X10^3/uL; Eosinophils% 2.3 % (0-5); Hematocrit 48.3 % (37-47); Hemoglobin 16.4 g/dL (12.0-15.0); Lymphocyte # 2.39 X10^3/ul (0.83-4.51); Lymphocyte % 23.5 % (19-41); Mean Corpuscular Hgb 28.8 pg (27.0-32.0); Mean Corpuscular Volume 84.7 fL (81-99); Mean Platelet Vol. 12.2 fl (6.2-12.0); Monocyte# 0.71 X10^3/uL; NRBC Flagged by Analyzer 0 % (0-5); Neutrophil # 6.69 X10^3/uL (2.7-7.7); Neutrophil % 65.5 % (47-70); Platelet Count 215 K/mm3 (150-450); RBC Distribution Width CV 13.4 % (11.6-14.6); RBC Distribution Width SD 41.1 fl (35.1-43.9); White Blood Count 10.2 K/mm3 (4.4-11.0)
[2021-01-19 16:51] LABS: ALB/GLOB Ratio 0.8 RATIO (0.9-2.4); AST(SGOT) 67 U/L (15-37); Alanine Aminotransfer ALT/SGPT 76 U/L (13-56); Albumin, Serum 3.1 g/dL (3.2-5.0); Alkaline Phosphatase 85 U/L (45-117); Anion Gap 11 (5-15); BUN 12 mg/dL (7-18); BUN/Creat Ratio 14.3 RATIO (10-20); Calcium,Total 8.6 mg/dL (8.5-10.1); Chloride 96 mmol/L (98-107); Creatinine, Serum 0.84 mg/dL (0.55-1.02); EST Glomerular Filtration Rate 81 mL/min (>60); Est Glom Filt Rate - Afr Amer 98 mL/min (>60); Globulin 4.1 g/dL (2.2-4.2); Glucose 459 mg/dL (74-106); Magnesium 1.8 mg/dL (1.6-2.6); Potassium 4.4 mmol/L (3.5-5.1); Protein, Total 7.2 g/dL (6.4-8.2); Sodium Level 127 mmol/L (136-145)
[2021-01-19] MEDS: 0.9% Normal Saline 1,000 ML 999 ML IV (16:52)
[2021-01-19] MEDS: 0.9% Saline Lock 10 ML Syringe IV (16:57)
[2021-01-19] MEDS: Insulin Lispro 100 UNIT/ML INSULN.PEN SC ×3 (16:58→22:17)
[2021-01-19] MEDS: oxyCODONE 5 MG Tablet PO ×2 (16:59→22:45)
[2021-01-19] MEDS: Lisinopril 20 MG Tablet PO (17:02)
[2021-01-19 17:55] LABS: Bedside Glucose 311 mg/dL (70-110)
[2021-01-19] MEDS: KCL 20MEQ in 0.9% NS 20 MEQ/1,000 ML IV.SOLN. 150 MEQ IV (18:01)
[2021-01-19 18:19] VITALS: BP 117/46; PULSE 103
--- NOTE | 2021-01-19 19:06 | PCM.PN.HOSP ---
Subjective Subjective 35-year-old female with PCOS, morbid obesity, type 2 diabetes, hypertension presents with a vulvar abscess. Medicine was consulted to assist with blood pressure and blood sugar issues. She states that she is on insulin at home long-acting at night as well as sliding scale insulin but her blood sugars are usually in the 400-500 range. She has not eaten anything today however her blood sugars are still elevated in the 300-400 range. Her blood pressure was also elevated however she states that she did not take her lisinopril today and this was given later in the afternoon. Currently pending to see plastic surgery for evaluation of her vulvar abscess and will be n.p.o. until evaluation. Objective Data Objective Data Vital Signs: Vital Signs Temp Pulse Resp BP Pulse Ox 98.4 F 103 H 18 117/46 L 98 01/19/21 15:25 01/19/21 18:19 01/19/21 15:25 01/19/21 18:19 01/19/21 15:25 Oxygen Delivery Method Room Air Weight: 230 lb 2.601 oz Body Mass Index (BMI) 34.9 Intake & Output: Intake and Output for Last 24 Hours 01/18/21 01/19/21 01/20/21 03:59 03:59 03:59 Intake Total 1050 / 1050 Balance 1050 / 1050 Lab / Micro Data Result Diagrams: 01/19/21 16:08 01/19/21 16:08 Labs: Laboratory Results - last 24 hr 01/19/21 01/19/21 01/19/21 16:04 16:08 16:08 WBC 10.2 RBC 5.70 H Hgb 16.4 H Hct 48.3 H MCV 84.7 MCH 28.8 MCHC 34.0 RDW Std Deviation 41.1 RDW Coeff of Amada 13.4 Plt Count 215 MPV 12.2 H Immature Gran % (Auto) 0.800 Neut % (Auto) 65.5 Lymph % (Auto) 23.5 [place] % (Auto) 7.0 Eos % (Auto) 2.3 Baso % (Auto) 0.9 Absolute Neuts (auto) 6.7 Absolute Lymphs (auto) 2.39 Nucleated RBC % 0 Sodium 127 L Potassium 4.4 Chloride 96 L Carbon Dioxide 20.0 L Anion Gap 11 BUN 12 Creatinine 0.84 Estim Creat Clear Calc 92.50 Est GFR (MDRD) Af Amer 98 Est GFR (MDRD) Non-Af 81 BUN/Creatinine Ratio 14.3 Glucose 459 H* Calcium 8.6 Magnesium 1.8 Total Bilirubin 0.70 AST 67 H ALT 76 H Alkaline Phosphatase 85 Total Protein 7.2 Albumin 3.1 L Globulin 4.1 Albumin/Globulin Ratio 0.8 L POC Glucose 481 H* 01/19/21 17:50 WBC RBC Hgb Hct MCV MCH MCHC RDW Std Deviation RDW Coeff of Amada Plt Count MPV Immature Gran % (Auto) Neut % (Auto) Lymph % (Auto) [place] % (Auto) Eos % (Auto) Baso % (Auto) Absolute Neuts (auto) Absolute Lymphs (auto) Nucleated RBC % Sodium Potassium Chloride Carbon Dioxide Anion Gap BUN Creatinine Estim Creat Clear Calc Est GFR (MDRD) Af Amer Est GFR (MDRD) Non-Af BUN/Creatinine Ratio Glucose Calcium Magnesium Total Bilirubin AST ALT Alkaline Phosphatase Total Protein Albumin Globulin Albumin/Globulin Ratio POC Glucose 311 H Physical Exam Const alert, oriented x3 and no apparent distress General Appearance: cooperative HEENT normocephalic Mouth: dry mucous membranes Eyes PERRL, EOMs intact bilaterally and conjunctivae normal Neck supple and no JVD Resp normal respiratory effort, no retractions, no use of accessory muscles and clear to auscultation bilaterally Auscultation: Negative for crackles, rales, rhonchi or wheezes Cardio regular rate, regular rhythm, S1 normal heart sound, S2 normal heart sound and no murmurs GI soft to palpation, non-tender and non-distended; Negative for hepatosplenomegaly Extremity no clubbing, cyanosis or edema Skin no rashes or lesions noted Neuro no focal motor deficits and no sensory deficits noted Psych affect normal Appearance: appropriate Assessment & Plan Assessment/Plan (1) Vulvar abscess: (2) Diabetes mellitus type 2, uncontrolled: QUALIFIERS: Diabetes mellitus complication status: without complication Diabetes mellitus snf insulin use: with director long term care use Qualified Code(s): E11.65 - Type 2 diabetes mellitus with hyperglycemia; Z79.4 - halfway (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 of insulin (3) Hypertension: QUALIFIERS: Hypertension type: essential hypertension Qualified Code(s): I10 - Essential (primary) hypertension PLAN: 1. Vulvar abscess -Continue antibiotics per primary -Consult the Dr. Avitia for evaluation 2. 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 HTN -We will continue to monitor, continue with lisinopril -Hypertension is likely also contributed to by pain 4. Bipolar disorder -Stable -Continue with fluphenazine and Cogentin DVT: SCDs Charges/Coding Visit Charges Inpatient E&M: 11073 Subs Hosp L3
--- NOTE | 2021-01-19 19:49 | PCM.RX.CS ---
Consult Pharmacy has been consulted to manage selected antiobiotic: Vancomycin Type of Consult: New start Suspected Infection: Skin/Soft tissue Labs: Sodium 127 mmol/L (136-145) L 01/19/21 16:08 Potassium 4.4 mmol/L (3.5-5.1) 01/19/21 16:08 Chloride 96 mmol/L (98-107) L 01/19/21 16:08 Carbon Dioxide 20.0 mmol/L (21.0-32.0) L 01/19/21 16:08 Anion Gap 11 (5-15) 01/19/21 16:08 BUN 12 mg/dL (7-18) 01/19/21 16:08 Creatinine 0.84 mg/dL (0.55-1.02) 01/19/21 16:08 Est GFR (MDRD) Af Amer 98 mL/min (>60) 01/19/21 16:08 Est GFR (MDRD) Non-Af 81 mL/min (>60) 01/19/21 16:08 BUN/Creatinine Ratio 14.3 RATIO (10-20) 01/19/21 16:08 Glucose 459 mg/dL (74-106) H* 01/19/21 16:08 Goal Trough: 15-20 mcg/mL Pharmacy Plan for Drug Dosing: NEW START IV VANCOMYCIN Consulting Physician: Dr. Sanabria Indication: abscess Goal Trough: 15-20 SrCr: 0.84 CrCl: 93 mL/min Comments: 2000mg IV x1 loading dose ordered and given 01/19/21 @1735 Vancomcyin Dose: 2000 mg IV Q12hr to start 01/20/21 @0500 Pending Level: 01/21/21 @0430, prior to 4th total dose per protocol. Pharmacy Service will continue to monitor and adjust dosing as required.
[2021-01-19 21:25] VITALS: BP 108/53; PULSE 91; RESP 14; TEMP 36.7; O2SAT 97
[2021-01-19] MEDS: Famotidine 20 MG Tablet PO (22:18)
[2021-01-19 22:46] LABS: Bedside Glucose 193 mg/dL (70-110)
[2021-01-19] MEDS: metroNIDAZOLE 500 MG/100 ML BAG 100 MG IV (23:36)
[2021-01-20] VITALS (12 sets, daily range): BP systolic 96–142; BP diastolic 53–131; PULSE 70–118; RESP 12–22; TEMP 36–36.9; O2SAT 95–99; BMI 34.9
[2021-01-20] MEDS: KCL 20MEQ in 0.9% NS 20 MEQ/1,000 ML IV.SOLN. 150 MEQ IV ×2 (00:46→08:22)
[2021-01-20 05:24] LABS: Absolute Lymphocyte Count 2.02 X10^3/uL (0.83-4.51); Absolute Neutrophil Count 4.9 X10^3/uL (2.0-7.7); Basophil# 0.06 X10^3/uL; Basophil% 0.8 % (0-1); Eosinophil# 0.31 X10^3/uL; Eosinophils% 3.9 % (0-5); Hematocrit 42.4 % (37-47); Hemoglobin 14.3 g/dL (12.0-15.0); Lymphocyte # 2.02 X10^3/ul (0.83-4.51); Lymphocyte % 25.3 % (19-41); Mean Corp Hgb Conc 33.7 g/dL (32-36); Mean Corpuscular Hgb 28.9 pg (27.0-32.0); Mean Corpuscular Volume 85.7 fL (81-99); Mean Platelet Vol. 11.9 fl (6.2-12.0); Monocyte# 0.68 X10^3/uL; Monocyte% 8.5 % (0-10); NRBC Flagged by Analyzer 0 % (0-5); Neutrophil # 4.87 X10^3/uL (2.7-7.7); Neutrophil % 60.7 % (47-70); Platelet Count 186 K/mm3 (150-450); RBC Distribution Width CV 13.5 % (11.6-14.6); RBC Distribution Width SD 42.1 fl (35.1-43.9); Red Blood Count 4.95 M/mm3 (4.2-5.4)
[2021-01-20] MEDS: metroNIDAZOLE 500 MG/100 ML BAG 100 MG IV ×3 (07:03→21:18)
[2021-01-20 07:15] LABS: Hemoglobin A1c 13.1 % (3.8-5.6)
[2021-01-20 07:16] LABS: Bedside Glucose 241 mg/dL (70-110)
[2021-01-20] MEDS: Insulin Lispro 100 UNIT/ML INSULN.PEN SC ×3 (07:33→21:21)
[2021-01-20] MEDS: oxyCODONE 5 MG Tablet PO ×2 (08:22→21:17)
[2021-01-20] MEDS: Famotidine 20 MG Tablet PO ×2 (08:22→21:39)
[2021-01-20] MEDS: Loratadine 10 MG Tablet PO (08:22)
[2021-01-20] MEDS: Lisinopril 20 MG Tablet PO (08:26)
--- NOTE | 2021-01-20 09:12 | PCM.PN.BLA ---
Progress Note Patient seen and examined. States she continues to have pain but is well controlled with current pain med regimen prescribed
--- NOTE | 2021-01-20 09:25 | PN.HOSP_ITS ---
Documented by User: Desi Zelaya NP-C 01/20/21 09:28 Subjective Subjective Patient seen and examined. States she continues to have pain but is well controlled with current pain med regimen prescribed. Patient reports continued drainage from abscess. Patient complains of fatigue, denies fever, chills, s hortness of breath, nausea, vomiting. Patient will remain n.p.o. until seen by Dr. Avitia for surgical evaluation Objective Data Objective Data Vital Signs: Vital Signs Temp Pulse Resp BP Pulse Ox 98.5 F 84 12 108/64 98 01/20/21 08:07 01/20/21 08:07 01/20/21 08:07 01/20/21 08:07 01/20/21 08:07 Oxygen Delivery Method Room Air Weight: 230 lb 2.601 oz Body Mass Index (BMI) 34.9 Intake & Output: Intake and Output for Last 24 Hours 01/18/21 01/19/21 01/20/21 23:59 23:59 23:59 Intake Total 1590 / 1590 2740 / 2740 Balance 1590 / 1590 2740 / 2740 Lab / Micro Data Result Diagrams: 01/20/21 05:02 01/20/21 05:20 Labs: Laboratory Results - last 24 hr 01/19/21 01/19/21 01/19/21 16:04 16:08 16:08 WBC 10.2 RBC 5.70 H Hgb 16.4 H Hct 48.3 H MCV 84.7 MCH 28.8 MCHC 34.0 RDW Std Deviation 41.1 RDW Coeff of Amada 13.4 Plt Count 215 MPV 12.2 H Immature Gran % (Auto) 0.800 Neut % (Auto) 65.5 Lymph % (Auto) 23.5 Ford % (Auto) 7.0 Eos % (Auto) 2.3 Baso % (Auto) 0.9 Absolute Neuts (auto) 6.7 Absolute Lymphs (auto) 2.39 Nucleated RBC % 0 Sodium 127 L Potassium 4.4 Chloride 96 L Carbon Dioxide 20.0 L Anion Gap 11 BUN 12 Creatinine 0.84 Estim Creat Clear Calc 92.50 Est GFR (MDRD) Af Amer 98 Est GFR (MDRD) Non-Af 81 BUN/Creatinine Ratio 14.3 Glucose 459 H* Hemoglobin A1c Calcium 8.6 Magnesium 1.8 Total Bilirubin 0.70 AST 67 H ALT 76 H Alkaline Phosphatase 85 Total Protein 7.2 Albumin 3.1 L Globulin 4.1 Albumin/Globulin Ratio 0.8 L POC Glucose 481 H* 01/19/21 01/19/21 01/20/21 17:50 22:15 05:02 WBC 8.0 RBC 4.95 Hgb 14.3 Hct 42.4 MCV 85.7 MCH 28.9 MCHC 33.7 RDW Std Deviation 42.1 RDW Coeff of Amada 13.5 Plt Count 186 MPV 11.9 Immature Gran % (Auto) 0.800 Neut % (Auto) 60.7 Lymph % (Auto) 25.3 Ford % (Auto) 8.5 Eos % (Auto) 3.9 Baso % (Auto) 0.8 Absolute Neuts (auto) 4.9 Absolute Lymphs (auto) 2.02 Nucleated RBC % 0 Sodium Potassium Chloride Carbon Dioxide Anion Gap BUN Creatinine Estim Creat Clear Calc Est GFR (MDRD) Af Amer Est GFR (MDRD) Non-Af BUN/Creatinine Ratio Glucose Hemoglobin A1c Calcium Magnesium Total Bilirubin AST ALT Alkaline Phosphatase Total Protein Albumin Globulin Albumin/Globulin Ratio POC Glucose 311 H 193 H 01/20/21 01/20/21 05:02 07:09 WBC RBC Hgb Hct MCV MCH MCHC RDW Std Deviation RDW Coeff of Amada Plt Count MPV Immature Gran % (Auto) Neut % (Auto) Lymph % (Auto) Ford % (Auto) Eos % (Auto) Baso % (Auto) Absolute Neuts (auto) Absolute Lymphs (auto) Nucleated RBC % Sodium Potassium Chloride Carbon Dioxide Anion Gap BUN Creatinine Estim Creat Clear Calc Est GFR (MDRD) Af Amer Est GFR (MDRD) Non-Af BUN/Creatinine Ratio Glucose Hemoglobin A1c 13.1 H Calcium Magnesium Total Bilirubin AST ALT Alkaline Phosphatase Total Protein Albumin Globulin Albumin/Globulin Ratio POC Glucose 241 H Physical Exam Const alert and oriented x3 General Appearance: cooperative and comfortable HEENT normocephalic and head/scalp atraumatic Eyes PERRL and EOMs intact bilaterally Neck full ROM, no lymphadenopathy, supple and no JVD Lymph Lymphatic: no lymphadenopathy noted Resp normal respiratory effort, normal air movement and clear to auscultation bilaterally Auscultation: Negative for crackles, rales, rhonchi or wheezes Cardio regular rate, regular rhythm, S1 normal heart sound and S2 normal heart sound GI normal to inspection, nondistended, normoactive bowel sounds and soft to palpation External Female Exam: erythema and externally tender Extremity normal to inspection, full ROM and normal capillary refill Skin no rashes or lesions noted and skin turgor normal Neuro oriented x3 and CN's II-XII intact bilaterally Psych mental status grossly normal, thought process normal, cooperative and affect normal Appearance: appropriate Assessment & Plan Assessment/Plan (1) Vulvar abscess: (2) Hydradenitis: (3) Diabetes mellitus type 2, uncontrolled: QUALIFIERS: Diabetes mellitus complication status: without complication 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 Vulvar abscess -Continue antibiotics per primary -Consult the Dr. Avitia for evaluation 2. IDDM 2/PCOS -Accu-Cheks AC at bedtime -She acknowledges that she does not quite follow the diabetic diet encouraged her to see a environment friendly landscape designer as an outpatient for further bookkeeper assistant and dietary choices, she states that a lot of the healthy foods are expensive -Hold Metformin -Scheduled Humalog held due to NPO status and to avoid hypoglycemia, SSI given. 3. HTN -We will continue to monitor, continue with lisinopril -Hypertension is likely also contributed to by pain 4. Bipolar disorder -Stable -Continue with fluphenazine and Cogentin DVT: SCDs Documented by User: Dr. Viral Beckman MD 01/20/21 16:02 Subjective Subjective Patient is admitted with vulvar abscess. Patient has history of bilateral axillary and groin hidradenitis suppurativa. History of strep and staph infection, MRSE Objective Data Lab / Micro Data Result Diagrams: 01/20/21 05:02 01/20/21 05:20 Physical Exam Narrative Physical exam General: Alert, Oriented x3, Cooperative HEENT: Atraumatic, PERRLA, EOMI, Normocephalic Oral: No Gingival or Mucosal Lesions/ Ulcerations Neck: Supple, No JVD, Negative Carotid Bruits Lungs: Air entry diminished in bilateral lung bases. No crepitation/rhonchi Cardiovascular: Regular rate, Regular Rhythm, Normal S1, Normal S2, No murmurs Abdomen: Bowel Sounds Present, Soft, Non Tender, Non-Distended : No renal angle tenderness. No suprapubic tenderness. Vulvar abscess. Extremities: No edema, Capillary Refill Less than 3 Seconds Skin: No rashes, No breakdown Musculoskeletal: No Tenderness to Palpation of Joints or Extremities Neurological: Cranial nerves II-XII grossly intact, Deep Tendon Reflexes 2+/4 and Symmetrical, Neuro grossly intact Psych/Mental Status: Normal Affect, Appropriate. Assessment & Plan Assessment/Plan (1) Vulvar abscess: (2) Hydradenitis: PLAN: This patient was seen in conjunction with HANNA Weeks. I have independently interviewed and examined the patient and reviewed pertinent history, examination findings, laboratory and plan of management. I have reviewed the note and agree with the documented findings with the few additional points. In brief, patient is admitted for vulvar abscess. Patient on ceftriaxone 2 g along with vancomycin and I think it is appropriate coverage. Patient is scheduled for incision and drainage by Dr. Avitia in afternoon. History of polycystic ovarian disease and type 2 diabetes mellitus with morbid obesity. Glucose is 229. Uptitrate insulin. Other comorbidities as listed above I have discussed my assessment with HANNA Weeks and orders have been reviewed. Charges/Coding Visit Charges Inpatient E&M: 45741 Subs Hosp L2
[2021-01-20 09:37] LABS: Anion Gap 5 (5-15); BUN 8 mg/dL (7-18); Calcium,Total 7.6 mg/dL (8.5-10.1); Chloride 110 mmol/L (98-107); Creatinine, Serum 0.47 mg/dL (0.55-1.02); EST Glomerular Filtration Rate 158 mL/min (>60); Est Glom Filt Rate - Afr Amer 191 mL/min (>60); Estimated Creatinine Clearance 165.32 ml/min; Glucose 286 mg/dL (74-106); Potassium 4.3 mmol/L (3.5-5.1); Sodium Level 137 mmol/L (136-145)
--- NOTE | 2021-01-20 10:15 | CASEMGMT ---
RN GIANNA WELDING MACHINE OPERATOR/TENDER CM to room to meet with patient for initial transition planning/care coordination assessment. MIRIAM KATZ introduced self and role at [facility]. Pt voices understanding and consents to assessment at this time. Pt resting in bed in no distress at this time. Pt is A/O at this time and answers all questions appropriately. Care providers, pharmacy, and demographics verified/updated at this time. PCP: Dr Murrell Specialists: None Preferred Pharmacy: [facility] [place], [place] [facility] Prescription Benefit: Yes Living Will/HPOA: States does not have LW or HCPOA . Interested in more information but states does not want to talk with SW at this time to complete paperwork. Provided information on advanced directives and given Social Service rac card with number to call if chooses in the future to utilize [facility] social work for advanced directive completion. LNOK: , Jonathan. Father, Cm. is currently in long term. Pt states he is supposed to get out March 05. Living Arrangements: Pt lives w/her . Independent w/ADL's and IADL's. Pt states her and her get her husbands kids every week thru Sunday. One is 6-yrs-old and the other is 18. She states the 18 yr-old doesn't always come for the visits, but the 6 yr-old does. She states the 6 yr-old will be staying w/his mother until pt gets discharged from the hospital. Transportation: Pt states drives self and states no transportation concerns at this time. DME: States has the following DME: functioning glucometer w/supplies Pt states no need for further DME at this time. HHC/SNF: No hx of SNF. Has had HHC in the past for Wound Vac/wound care, but she does not remember the name of the agency. Pt wishes to return home and states may be interested in HHC again, depending on what Dr Avitia determines is needed re: abscess/wound care. Pt states she smokes about 4 cigars a day. CM to follow for possible need of HHC and discharge planning/needs. Pt voices no further concerns/needs at this time. Advised pt to ask for CM if any further questions/concerns/needs arise. Voices understanding. PLAN: Home w/possible HHC, dependent upon course of treatment/wound care. Hung MONACO RN CM
--- NOTE | 2021-01-20 10:49 | CON.PCM_ITS ---
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 She has worsening pain and redness and purulent drainage along with tissue necrosis. She has uncon trolled diabetes with a HgbA1c of 13.1. She is at risk for worsening of this infection that may lead to a necrotizing process which can be life threatening. Recommended to the patient that she go to the operating room urgently today to control the infection. She voices understanding and wishes to proceed. Surgery will be done under general anesthesia. Will send tissue to Pathology for analysis to rule out carcinoma and to Microbiology for culture. A positive culture may necessitate antibiotic therapy. The wound will be left open. Will start postoperative wound care with the VAC or with daily Dakin's dressing changes. After discharge, will followup at the Wound Center to continue to monitor the wound. If there is a plateau in the healing process or if a scar contracture forms that causes problems with the urinary stream, will proceed with delayed closure with skin grafting. Anticipate increased metabolic demands from the infection. Encourage nutritional supplementation with protein to help the healing process. Discussed with the patient that it is necessary to get the HgbA1c done into the 6-7 range. Will set up an appointment with Endocrinology post discharge. Patient was informed of the risks and complications of the procedure including alternatives to surgery. These were discussed with the patient personally. Patient voices understanding and wishes to proceed. If surgery is delayed, there is an increased risk of worsening infection, amputation, and . She voices understanding. We discussed the current risks associated with COVID-19. While it is understood that there is a community spread of COVID-19, the risk of roselia COVID-19 while at [facility] ([facility]) is very low; however, the risk cannot be completely mitigated because of the community spread of the disease. We discussed in detail the risk of exposure to and/or potential harm posed by the COVID-19 virus with having a surgery/procedure at this time versus the risk of delaying the surgery/procedure. It is not possible to know either the risk of delaying the surgery or procedure or chance of getting an infection with perfect accuracy, but a joint decision was made to proceed at this time with the scheduled surgery/procedure as indicated on the consent form. Patient was notified that we will need to comply with any screening or testing [facility] wishes to perform or that surgery may be delayed for any positive results. Discussed with the patient that I was tested for COVID-19 on 02/05/20 which was negative and on 02/19/20 which was negative and on 03/04/20 which was negative and on 03/18/20 which was negative and on 04/01/20 which was negative and on 04/22/20 which was negative and on 05/13/20 which was negative and on 06/17/20 which was negative and on 07/08/20 which was negative and on 07/27/20 which was negative. ? My testing regimen at this time is to be COVID-19 tested every 2 weeks or so.? I received the COVID-19 vaccine (Moderna) on 08/04/20 and the second vaccine dose was received on 09/01/20.? When I was hospitalized on 10/04/20 I was tested for COVID-19 which was negative.? I was also? tested for COVID-19 on 10/19/20 which was negative and on 11/15/20 which was negative. COVID Risk Discussion: The surgeon/proceduralist and patient have discussed in detail the risk of exposure to and/or potential harm posed by the COVID-19 virus with having a surgery/procedure at this time versus the risk of delaying the surgery/procedure.? It is not possible to know either the risk of delaying the surgery or procedure or chance of getting an infection with perfect accuracy, but a joint decision was made between the patient and the surgeon/proceduralist to proceed at this time with the scheduled surgery/procedure as indicated on the consent form. HPI Consult Data Date of Consult: 01/20/21 PCP / Referring MD: Dr. Fartun Murrell MD/Dr. Beulah Sanabria MD Attending Care Provider: Dr. Beulah Sanabria MD [employer]OCHONDRIAL [employer]ORDERS COUNSELOR: Dr. Avitia. HPI Narrative Reason for Consultation: Right vulval hidradenitis diabetic abscess. HPI Narrative: 35 F presents with a right vulval abscess that started about 4 days ago with increased pain and redness and swelling. She went to the ED 2 days later where an I&D was done. She was started on Bactrim. She has a history of uncontrolled diabetes (HgbA1c 13.1) and hidradenitis. When she was seen at Dr. Sanabria's office, there was increased pain by the patient and increased redness along with significant necrotic tissue. She denies any fever. Admission to the hospital was recommended for IV antibiotics. She was started on Vancomycin, Ceftriaxone, and Flagyl. She complains of fatigue, malaise, nausea, decreased appetite, and body aches. I was asked to evaluate this patient for surgical options for treatment. [facility] Medical History Anxiety and depression Bipolar disorder Diabetes mellitus type 2, uncontrolled Fibromyalgia Hemoglobin A1c greater than 9.0% History of necrotising fasciitis History of venous thromboembolism Hydradenitis Hypertension Hypertension Morbid obesity Polycystic ovary Vulvar abscess Vulvar ulcer Home Medications lisinopril 20 mg PO DAILY 04/23/16 [History Last Taken 01/18/21] loratadine 10 mg PO DAILY 04/23/16 [History Last Taken 01/18/21] metformin 1,000 mg PO BIDCM 04/23/16 [History Last Taken 01/18/21] insulin degludec 70 unit SQ DAILY 09/30/16 [History Last Taken 01/18/21] insulin lispro unit SQ TID 12/05/18 [History Last Taken 01/18/21] Cogentin 0.5 mg PO/SL BID PRN 07/09/20 [History Last Taken Unknown] fluphenazine decanoate 25 mg IJ X1 07/09/20 [History Last Taken Unknown] diazepam [Valium] 5 mg PO BID PRN #14 tab 01/21/21 [Rx Last Taken Unknown] doxycycline hyclate 100 mg PO BID #30 cap 01/21/21 [Rx Last Taken Unknown] gauze bandage [Kerlix] #12 ea 01/21/21 [Rx Last Taken Unknown] oxycodone-acetaminophen [Percocet] 1 tab PO Q4H PRN 7 Days #40 tab 01/21/21 [Rx Last Taken Unknown] sodium hypochlorite [Dakin's Solution] 1 irrig TOPICAL DAILY #473 ml 01/21/21 [Rx Last Taken Unknown] Allergy/AdvReac Type Severity Reaction Status Date / Time amoxicillin [Amoxicillin] Allergy Unknown Verified 01/17/21 17:50 asenapine maleate Allergy Unknown Verified 01/17/21 17:50 [From Saphris] Family History Mother Hypertension Brain aneurysm Father Diabetes Hypertension Grandmother Cancer liver throat kidney Diabetes Hypertension Heart disease CVA (cerebral vascular accident) Breast cancer Grandfather Kidney disease Hypertension CVA (cerebral vascular accident) Surgical History H/O lateral meniscus repair of left knee Social History Smoking Status: Current every day smoker tobacco type: cigarettes alcohol intake: never substance use type: does not use caffeine: Yes frequency: 5-6 times per week seatbelt use: always do you feel safe at home: Yes additional social history: Jonathan- Unemployed Patient is on disability ROS ROS Narrative REVIEW OF SYSTEMS General - Denies fever, fatigue, and weight loss. Eyes - Denies cataracts and glaucoma. ENT - Denies nasal congestion and sore throat. Endocrine - Denies excessive thirst and urination. Skin - Denies suspicious lesions and skin cancer. Musculoskeletal - Denies joint pain, joint stiffness, weakness of muscles and joints, back pain, and arthritis. Neuro - Denies headaches. Cardiovascular - Denies chest pain, fatigue, and shortness of breath with exertion. Psych - Denies anxiety and depression. Respiratory - Denies chronic cough and shortness of breath. Gastrointestinal - Denies nausea, vomiting, diarrhea, and constipation. Hematologic - Denies abnormal bruising and bleeding. Genitourinary - Denies hematuria and urinary frequency. Physical Exam Narrative PHYSICAL EXAMINATION General - Alert and Oriented. HEENT - PERRL. EOMI. Throat is clear. Neck - Supple and nontender. No cervical adenopathy. Lungs - Clear to auscultation. Heart - Regular rate and rhythm. Abdomen - Soft and nondistended. No inguinal adenopathy. - There is an abscess on the right vulval area extending from the genitocrural crease up to the labia. Measures 5 cm. There is necrotic tissue present. Quite tender. Purulent drainage is noted. There is surrounding re dness and induration. There is some undermining superiorly. Extremities - FROM. No axillary adenopathy. Radial pulses are palpable. Neuro - CN II-XII grossly intact. Psych - Normal mood and affect. Lab / Micro Data Attestation: I reviewed the patient's lab results. Result Diagrams: 01/21/21 04:36 01/21/21 04:36 Labs: Laboratory Results - last 24 hr 01/19/21 01/19/21 01/19/21 16:04 16:08 16:08 WBC 10.2 RBC 5.70 H Hgb 16.4 H Hct 48.3 H MCV 84.7 MCH 28.8 MCHC 34.0 RDW Std Deviation 41.1 RDW Coeff of Amada 13.4 Plt Count 215 MPV 12.2 H Immature Gran % (Auto) 0.800 Neut % (Auto) 65.5 Lymph % (Auto) 23.5 Upson % (Auto) 7.0 Eos % (Auto) 2.3 Baso % (Auto) 0.9 Absolute Neuts (auto) 6.7 Absolute Lymphs (auto) 2.39 Nucleated RBC % 0 Sodium 127 L Potassium 4.4 Chloride 96 L Carbon Dioxide 20.0 L Anion Gap 11 BUN 12 Creatinine 0.84 Estim Creat Clear Calc 92.50 Est GFR (MDRD) Af Amer 98 Est GFR (MDRD) Non-Af 81 BUN/Creatinine Ratio 14.3 Glucose 459 H* Hemoglobin A1c Calcium 8.6 Magnesium 1.8 Total Bilirubin 0.70 AST 67 H ALT 76 H Alkaline Phosphatase 85 Total Protein 7.2 Albumin 3.1 L Globulin 4.1 Albumin/Globulin Ratio 0.8 L POC Glucose 481 H* 01/19/21 01/19/21 01/20/21 17:50 22:15 05:02 WBC 8.0 RBC 4.95 Hgb 14.3 Hct 42.4 MCV 85.7 MCH 28.9 MCHC 33.7 RDW Std Deviation 42.1 RDW Coeff of Amada 13.5 Plt Count 186 MPV 11.9 Immature Gran % (Auto) 0.800 Neut % (Auto) 60.7 Lymph % (Auto) 25.3 Upson % (Auto) 8.5 Eos % (Auto) 3.9 Baso % (Auto) 0.8 Absolute Neuts (auto) 4.9 Absolute Lymphs (auto) 2.02 Nucleated RBC % 0 Sodium Potassium Chloride Carbon Dioxide Anion Gap BUN Creatinine Estim Creat Clear Calc Est GFR (MDRD) Af Amer Est GFR (MDRD) Non-Af BUN/Creatinine Ratio Glucose Hemoglobin A1c Calcium Magnesium Total Bilirubin AST ALT Alkaline Phosphatase Total Protein Albumin Globulin Albumin/Globulin Ratio POC Glucose 311 H 193 H 01/20/21 01/20/21 01/20/21 05:02 05:20 07:09 WBC RBC Hgb Hct MCV MCH MCHC RDW Std Deviation RDW Coeff of Amada Plt Count MPV Immature Gran % (Auto) Neut % (Auto) Lymph % (Auto) Upson % (Auto) Eos % (Auto) Baso % (Auto) Absolute Neuts (auto) Absolute Lymphs (auto) Nucleated RBC % Sodium 137 Potassium 4.3 Chloride 110 H Carbon Dioxide 22.0 Anion Gap 5 BUN 8 Creatinine 0.47 L Estim Creat Clear Calc 165.32 Est GFR (MDRD) Af Amer 191 Est GFR (MDRD) Non-Af 158 BUN/Creatinine Ratio 17.0 Glucose 286 H Hemoglobin A1c 13.1 H Calcium 7.6 L Magnesium Total Bilirubin AST ALT Alkaline Phosphatase Total Protein Albumin Globulin Albumin/Globulin Ratio POC Glucose 241 H Charges/Coding Visit Charges Inpatient E&M: 79267 Init Hosp L3 (-57 Modifier ICD-10 - N76.4, N76.6, E11.65, L73.2, R73.09, Z86.718, F17.200)
[2021-01-20 12:30] LABS: Bedside Glucose 231 mg/dL (70-110)
--- NOTE | 2021-01-20 13:15 | ABS_PTH ---
PATIENT: CLAYTON PALM LOC: [facility] U#:[id number] AGE/SX: 35/F ROOM: [facility] RE01/19/[address]: Dr. Beulah Sanabria MD : 1985 BED: 1 DIS: 01/21/2021 SPEC #: [id number] RECD: 01/20/21 15:07 STATUS: CELE RYDERCony #: [id number] SHANTELLE: 01/20/21 13:[address]: Valeriy Avitia DEPT: SURGICAL PATHOLOGY RECD BY: Cyrus Zamora ENTERED: 01/21/21 07:54 SP TYPE: Abscess OTHR DR: MD Dr. Rosalino Perales MD Dr. Sharon Marcanthony, MD Tissues: Vulva, NOS Procedures: Special Stain Group I Surgery Specimen Level III AFB Stain (control) GMS Stain (control) HEADER OPERATION: Incision, drainage abscess, vulva PRE-OP DIAGNOSIS: Right vulva abscess TISSUE SUBMITTED: Debrided tissue, abscess right vulva MICROSCOPIC DIAGNOSIS Right vulvar abscess, debrided tissue: A piece of skin with underlying tissue with focal ulceration, acute and chronic inflammation and abscess formation. See comment. JOSHUA:rashard 01/24/2021 COMMENT Special stains for acid fast bacilli and fungi are negative for organisms; matched controls are appropriate. MICROSCOPIC DESCRIPTION Slides are reviewed. GROSS DESCRIPTION Received in fixative is one container labeled with the patient's name and designated debrided tissue, abscess right vulva. The specimen consists of a piece of skin with underlying tissue measuring 7.5 x 2.5 cm and up to 2.5 cm in thickness. A focal area of ulceration is noted on the surface measuring 2 cm in greatest dimension. Sections do not reveal any mass lesion. Bessemer Converter Blower sections are submitted in two cassettes. / SJ:rashard 01/21/21 TC:2 CPT: 56933, 31543 x2
[2021-01-20] MEDS: Lidocaine 1% /Epi 1:100 (20ml) 20 ML Vial (14:15)
--- NOTE | 2021-01-20 15:01 | PCM.OPRPT ---
Problems Associated Problem List Diagnoses (1) Vulvar ulcer: (2) Vulvar abscess: (3) Hydradenitis: (4) Diabetes mellitus type 2, uncontrolled: (5) Hemoglobin A1c greater than 9.0%: (6) History of venous thromboembolism: (7) Smoker: Report of Operation Date of Procedure: 01/20/21 Pre-Operative Diagnosis: 1. Right vulval diabetic ulcer abscess. 2. Hidradenitis. 3. Diabetes, uncontrolled. 4. HgbA1c > 9.0%. 5. History of VTE. 6. Smoker. Post-Operative Diagnosis: Same. Surgery/Procedure Performed:: Surgical preparation right vulva involving genitocrural crease extending to labia with incision and drainage hidradenitis diabetic ulcer abscess and excisional debridement with partial vulvectomy including deep subcutaneous tissue (40 cm2). Description of Surgical Findings:: 35 F presents with a right vulval abscess that started about 4 days ago with increased pain and redness and swelling. She went to the ED 2 days later where an I&D was done. She was started on Bactrim. She has a history of uncontrolled diabetes (HgbA1c 13.1) and hidradenitis. When she was seen at Dr. Sanabria's office, there was increased pain by the patient and increased redness along with significant necrotic tissue. She denies any fever. Admission to the hospital was recommended for IV antibiotics. She was started on Vancomycin, Ceftriaxone, and Flagyl. She complains of fatigue, malaise, nausea, decreased appetite, and body aches. I was asked to evaluate this patient for surgical options for treatment. Patient was informed of the risks and complications of the procedure including alternatives to surgery. These were discussed with the patient personally. Patient voices understanding and wishes to proceed. Encouraged patient to stop smoking as it may have deleterious effects on wound healing. Size of defect right vulval area involving genitocrural crease extending to labia - 8 x 5 x 4 cm. Surgeon: Valeriy Avitia director of physician practices: None Type of Anesthesia: General Specimen's removed: Right vulval hidradenitis diabetic abscess to Pathology and Microbiology. Drains: None. Estimated Blood Loss (mL): 50. Description of Procedure: Patient was taken to OR in supine position and was placed under general anesthesia. The legs were froglegged. The vulval area was prepped and draped in the usual fashion. SCD's were placed for DVT prophylaxis. Perioperative antibiotics were given intravenously. Using xylocaine with epinephrine, the right vulval abscess area was infiltrated. After waiting 5 minutes for the anesthetic to take effect, I proceeded with incision and drainage of the right vulval abscess. Necrotic tissue was present. A lot of fat necrosis was present. Copious pus was seen. The ulcer tracked superiorly. The ulcer was opened up with excision and debridement. The necrotic tissue and fat necrosis was also excised and debrided with a partial vulvectomy that included deep subcutaneous tissue. Tissue was sent to Pathology for analysis to rule out carcinoma and to Microbiology for culture. A positive culture will necessitate antibiotic therapy. The wound was irrigated with saline. Hemostasis was obtained with electrocautery. The size of the defect right vulval area extending from the genitocrural crease to the labia was 8 x 5 x 4 cm or 40 cm2. The wound was dressed with Mepitel nonadherent dressing followed by Kerlix gauze and Betadine and dry Kerlix gauze and ABD pad followed by meshed panties to secure the dressing along with some tape. Tomorrow will change the dressing with a Dakin's dressing change. It is doubtful that a VAC would be able to maintain a seal. Grafts/Implants Used: None. Complications None. Admit VTE Documentation VTE Present on Admission: No VTE Mechan Device Prophylaxis: SCD's VTE Pharm Prophylaxis ordered?: Yes Addendum Addendum: Surgery Charges CPT - 02509 ICD-10 - N76.4, N76.6, E11.65, L73.2, R73.09, Z86.718, F17.200
[2021-01-20 15:16] LABS: Bedside Glucose 229 mg/dL (70-110)
--- NOTE | 2021-01-20 15:16 | SUR.PHASEI ---
PATIENT'S BLOOD GLUCOSE WAS 229. DR. WILSON WAS MADE AWARE AND NO NEW ORDERS.
[2021-01-20] MEDS: Lactated Ringers 1,000 ML 100 ML IV ×3 (15:23→17:50)
[2021-01-20] MEDS: Ondansetron 4 MG/2 ML Vial IV (16:41)
[2021-01-20 17:15] LABS: Bedside Glucose 223 mg/dL (70-110)
[2021-01-20] MEDS: Insulin Lispro 100 UNIT/ML INSULN.PEN 15 UNIT SC (17:47)
--- NOTE | 2021-01-20 18:14 | PN.OBGYN_ITS ---
Subjective Subjective Late entry?patient seen at 7:00 AM patient stable pain controlled some nausea no vomiting still having discomfort and swelling in the area. No chest pain shortness of breath. Passing gas. Objective Data Objective Data Vital Signs: Vital Signs Temp Pulse Resp BP Pulse Ox 96.8 F L 85 14 110/58 L 96 01/20/21 17:57 01/20/21 17:57 01/20/21 17:57 01/20/21 17:57 01/20/21 17:57 Oxygen Delivery Method Room Air Weight: 230 lb 2.601 oz Body Mass Index (BMI) 34.9 Intake & Output: Intake and Output for Last 24 Hours 01/18/21 01/19/21 01/20/21 23:59 23:59 23:59 Intake Total 1590 / 1590 4625.83 / 4625.83 Balance 1590 / 1590 4625.83 / 4625.83 Lab / Micro Data Result Diagrams: 01/20/21 05:02 01/20/21 05:20 Labs: Laboratory Results - last 24 hr 01/19/21 01/20/21 01/20/21 22:15 05:02 05:02 WBC 8.0 RBC 4.95 Hgb 14.3 Hct 42.4 MCV 85.7 MCH 28.9 MCHC 33.7 RDW Std Deviation 42.1 RDW Coeff of Amada 13.5 Plt Count 186 MPV 11.9 Immature Gran % (Auto) 0.800 Neut % (Auto) 60.7 Lymph % (Auto) 25.3 Reagan % (Auto) 8.5 Eos % (Auto) 3.9 Baso % (Auto) 0.8 Absolute Neuts (auto) 4.9 Absolute Lymphs (auto) 2.02 Nucleated RBC % 0 Sodium Potassium Chloride Carbon Dioxide Anion Gap BUN Creatinine Estim Creat Clear Calc Est GFR (MDRD) Af Amer Est GFR (MDRD) Non-Af BUN/Creatinine Ratio Glucose Hemoglobin A1c 13.1 H Calcium POC Glucose 193 H 01/20/21 01/20/21 01/20/21 05:20 07:09 12:19 WBC RBC Hgb Hct MCV MCH MCHC RDW Std Deviation RDW Coeff of Amada Plt Count MPV Immature Gran % (Auto) Neut % (Auto) Lymph % (Auto) Reagan % (Auto) Eos % (Auto) Baso % (Auto) Absolute Neuts (auto) Absolute Lymphs (auto) Nucleated RBC % Sodium 137 Potassium 4.3 Chloride 110 H Carbon Dioxide 22.0 Anion Gap 5 BUN 8 Creatinine 0.47 L Estim Creat Clear Calc 165.32 Est GFR (MDRD) Af Amer 191 Est GFR (MDRD) Non-Af 158 BUN/Creatinine Ratio 17.0 Glucose 286 H Hemoglobin A1c Calcium 7.6 L POC Glucose 241 H 231 H 01/20/21 01/20/21 15:13 17:03 WBC RBC Hgb Hct MCV MCH MCHC RDW Std Deviation RDW Coeff of Amada Plt Count MPV Immature Gran % (Auto) Neut % (Auto) Lymph % (Auto) Reagan % (Auto) Eos % (Auto) Baso % (Auto) Absolute Neuts (auto) Absolute Lymphs (auto) Nucleated RBC % Sodium Potassium Chloride Carbon Dioxide Anion Gap BUN Creatinine Estim Creat Clear Calc Est GFR (MDRD) Af Amer Est GFR (MDRD) Non-Af BUN/Creatinine Ratio Glucose Hemoglobin A1c Calcium POC Glucose 229 H 223 H Micro: Microbiology 01/20/21 11:17 Mucosa - Nose SARS-CoV-2 Antigen (Rapid) - Final ROS Constitutional Constitutional: Reports systems reviewed and no addt'l complaints, except as documented Cardiovascular Cardiovascular: Reports systems reviewed and no addt'l complaints, except as documented and as per HPI Respiratory/Chest Respiratory/Chest: Reports systems reviewed and no addt'l complaints, except as documented and as per HPI Gastrointestinal Gastrointestinal: Reports systems reviewed and no addt'l complaints, except as documented and as per HPI Genitourinary Genitourinary: Reports as per HPI Physical Exam Const alert, oriented x3 and no apparent distress HEENT normocephalic Head and Scalp: atraumatic Chest inspection of chest normal Resp normal respiratory effort Cardio regular rate, regular rhythm, S1 normal heart sound and S2 normal heart sound GI normal to inspection, nondistended, normoactive bowel sounds, soft to palpation, non-tender, non-distended and no masses Narrative: right vulvar open wound unchanged from yesterday Assessment & Plan (1) Hemoglobin A1c greater than 9.0%: COMMENT: 13.1 on 01/20/21 (2) History of venous thromboembolism: COMMENT: after arthrocopic surgery on the left knee for a meniscus tear. (3) Hypertension: QUALIFIERS: Hypertension type: essential hypertension Qualified Code(s): I10 - Essential (primary) hypertension (4) Morbid obesity: (5) Hydradenitis: COMMENT: right vulval area involving genitocrural crease extending to the labia Left axilla and mons pubis (6) Vulvar abscess: COMMENT: failed OP management on bactrim, admit for IVABx and plastics consult for possible debridement (7) Diabetes mellitus type 2, uncontrolled: QUALIFIERS: Diabetes mellitus complication status: without complication Diabetes mellitus retirement insulin use: with continuous churn buttermaker use Qualified Code(s): E11.65 - Type 2 diabetes mellitus with hyperglycemia; 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 May discharge home tomorrow if tolerating dressing changes and has adequate p.o. intake. Charges/Coding Visit Charges Inpatient E&M: 24122 [facility] Hosp L3
[2021-01-20] MEDS: proCHLORPERazine 10 MG/2 ML Vial 5 MG IV (21:41)
[2021-01-20] MEDS: 0.9% Saline Lock 10 ML Syringe IV (21:45)
[2021-01-20 22:10] LABS: Bedside Glucose 200 mg/dL (70-110)
[2021-01-21 00:46] VITALS: BP 89/50; PULSE 71; RESP 16; TEMP 36.8; O2SAT 96
[2021-01-21] MEDS: oxyCODONE 5 MG Tablet PO ×3 (01:22→10:42)
[2021-01-21 01:33] VITALS: BP 103/53; PULSE 78; RESP 18; TEMP 36.7; O2SAT 98
[2021-01-21 05:06] LABS: Vancomycin, Trough Level 12.3 ug/mL (5.0-15.0)
[2021-01-21] MEDS: Lactated Ringers 1,000 ML 100 ML IV (05:28)
[2021-01-21 05:30] VITALS: BP 116/55; PULSE 78; RESP 16; TEMP 37.3; O2SAT 97
--- NOTE | 2021-01-21 05:39 | PCM.RX.CS ---
Consult Pharmacy has been consulted to manage selected antiobiotic: Vancomycin Labs: Sodium 137 mmol/L (136-145) 01/20/21 05:20 Potassium 4.3 mmol/L (3.5-5.1) 01/20/21 05:20 Chloride 110 mmol/L (98-107) H 01/20/21 05:20 Carbon Dioxide 22.0 mmol/L (21.0-32.0) 01/20/21 05:20 Anion Gap 5 (5-15) 01/20/21 05:20 BUN 8 mg/dL (7-18) 01/20/21 05:20 Creatinine 0.47 mg/dL (0.55-1.02) L 01/20/21 05:20 Est GFR (MDRD) Af Amer 191 mL/min (>60) 01/20/21 05:20 Est GFR (MDRD) Non-Af 158 mL/min (>60) 01/20/21 05:20 BUN/Creatinine Ratio 17.0 RATIO (10-20) 01/20/21 05:20 Glucose 286 mg/dL (74-106) H 01/20/21 05:20 Vancomycin Trough 12.3 ug/mL (5.0-15.0) 01/21/21 04:36 Microbiology: Microbiology 01/20/21 11:17 Mucosa - Nose SARS-CoV-2 Antigen (Rapid) - Final Goal Trough: 15-20 mcg/mL Pharmacy Plan for Drug Dosing: Pharmacy Service will continue to monitor and adjust dosing as required. TROUGH 12.3 AND SCr DECREASED TO 0.47 CHANGE DOSE TO 1250 Q8H AND FOLLOW UP TROUGH BEFORE 4TH DOSE Follow-Up Labs: Trough Vancomycin Labs to be done on [date and time ordered]: 01/22 @ 9390
[2021-01-21 07:35] LABS: Bedside Glucose 193 mg/dL (70-110)
--- NOTE | 2021-01-21 07:46 | PCM.PN.OB ---
Subjective Subjective Pain controlled with medications, feeling hungry this morning. No chest pain shortness of breath and she is passing flatus. Objective Data Objective Data Vital Signs: Vital Signs Temp Pulse Resp BP Pulse Ox 99.1 F 78 16 116/55 L 97 01/21/21 05:30 01/21/21 05:30 01/21/21 05:30 01/21/21 05:30 01/21/21 05:30 Oxygen Delivery Method Room Air Weight: 230 lb 2.601 oz Body Mass Index (BMI) 34.9 Intake & Output: Intake and Output for Last 24 Hours 01/19/21 01/20/21 01/21/21 23:59 23:59 23:59 Intake Total 1590 / 1590 5265.83 / 5365.83 1100 / 1100 Output Total 950 / 950 Balance 1590 / 1590 5265.83 / 5365.83 150 / 150 Lab / Micro Data Result Diagrams: 01/21/21 04:36 01/21/21 04:36 Labs: Laboratory Results - last 24 hr 01/20/21 01/20/21 01/20/21 05:20 12:19 15:13 Sodium 137 Potassium 4.3 Chloride 110 H Carbon Dioxide 22.0 Anion Gap 5 BUN 8 Creatinine 0.47 L Estim Creat Clear Calc 165.32 Est GFR (MDRD) Af Amer 191 Est GFR (MDRD) Non-Af 158 BUN/Creatinine Ratio 17.0 Glucose 286 H Calcium 7.6 L Vancomycin Trough POC Glucose 231 H 229 H 01/20/21 01/20/21 01/21/21 17:03 21:15 04:36 Sodium Potassium Chloride Carbon Dioxide Anion Gap BUN Creatinine Estim Creat Clear Calc Est GFR (MDRD) Af Amer Est GFR (MDRD) Non-Af BUN/Creatinine Ratio Glucose Calcium Vancomycin Trough 12.3 POC Glucose 223 H 200 H 01/21/21 07:32 Sodium Potassium Chloride Carbon Dioxide Anion Gap BUN Creatinine Estim Creat Clear Calc Est GFR (MDRD) Af Amer Est GFR (MDRD) Non-Af BUN/Creatinine Ratio Glucose Calcium Vancomycin Trough POC Glucose 193 H Micro: Microbiology 01/20/21 11:17 Mucosa - Nose SARS-CoV-2 Antigen (Rapid) - Final ROS Constitutional Constitutional: Reports systems reviewed and no addt'l complaints, except as documented Cardiovascular Cardiovascular: Reports systems reviewed and no addt'l complaints, except as documented and as per HPI Respiratory/Chest Respiratory/Chest: Reports systems reviewed and no addt'l complaints, except as documented and as per HPI Gastrointestinal Gastrointestinal: Reports systems reviewed and no addt'l complaints, except as documented and as per HPI Genitourinary Genitourinary: Reports as per HPI Physical Exam Const alert, oriented x3 and no apparent distress HEENT normocephalic Head and Scalp: atraumatic Chest inspection of chest normal Resp normal respiratory effort Cardio regular rate, regular rhythm, S1 normal heart sound and S2 normal heart sound GI normal to inspection, nondistended, normoactive bowel sounds, soft to palpation, non-tender, non-distended and no masses Narrative: bandage intact Assessment & Plan (1) Hemoglobin A1c greater than 9.0%: COMMENT: 13.1 on 01/20/21 (2) History of venous thromboembolism: COMMENT: after arthrocopic surgery on the left knee for a meniscus tear. (3) Hypertension: QUALIFIERS: Hypertension type: essential hypertension Qualified Code(s): I10 - Essential (primary) hypertension (4) Morbid obesity: (5) Hydradenitis: COMMENT: right vulval area involving genitocrural crease extending to the labia Left axilla and mons pubis (6) Vulvar abscess: COMMENT: failed OP management on bactrim, admit for IVABx and plastics consult for possible debridement (7) Diabetes mellitus type 2, uncontrolled: QUALIFIERS: Diabetes mellitus complication status: without complication Diabetes mellitus supervisor intermediates insulin use: with supervisor intermediates use Qualified Code(s): E11.65 - Type 2 diabetes mellitus with hyperglycemia; 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 We will continue wound care teaching today. Will be switching to oral antibiotics per plastic surgery when they recommend. Appreciate hospitalist management of diabetes. Start Lovenox for VT prophylaxis while in hospital and less ambulatory. Ambulate today and if able to handle wound changes and has oral pain control may discharge to home today if okay with plastics. Charges/Coding Visit Charges Inpatient E&M: 22794 Disch Hosp
[2021-01-21] MEDS: metroNIDAZOLE 500 MG/100 ML BAG 100 MG IV (08:46)
[2021-01-21] MEDS: Famotidine 20 MG Tablet PO (08:47)
[2021-01-21] MEDS: Lisinopril 20 MG Tablet PO (08:47)
[2021-01-21] MEDS: Loratadine 10 MG Tablet PO (08:47)
[2021-01-21] MEDS: Insulin Lispro 100 UNIT/ML INSULN.PEN SC ×3 (08:47→16:58)
[2021-01-21] MEDS: Insulin Lispro 100 UNIT/ML INSULN.PEN 15 UNIT SC ×3 (08:48→16:59)
--- NOTE | 2021-01-21 08:59 | PCM.PN.HOSP ---
Documented by User: Desi Zelaya NP-Karl 01/21/21 09:19 Subjective Subjective Patient seen and examined. Patient states that she is having less pain than she was yesterday following surgery, currently 5 out of 10. Patient states that she is tired but other romero feels okay. Objective Data Objective Data Vital Signs: Vital Signs Temp Pulse Resp BP Pulse Ox 99.1 F 78 16 116/55 L 97 01/21/21 05:30 01/21/21 05:30 01/21/21 05:30 01/21/21 05:30 01/21/21 05:30 Oxygen Delivery Method Room Air Weight: 230 lb 2.601 oz Body Mass Index (BMI) 34.9 Intake & Output: Intake and Output for Last 24 Hours 01/19/21 01/20/21 01/21/21 23:59 23:59 23:59 Intake Total 1590 / 1590 5265.83 / 5365.83 1640 / 1640 Output Total 950 / 950 Balance 1590 / 1590 5265.83 / 5365.83 690 / 690 Lab / Micro Data Result Diagrams: 01/21/21 04:36 01/21/21 04:36 Labs: Laboratory Results - last 24 hr 01/20/21 01/20/21 01/20/21 05:20 12:19 15:13 Sodium 137 Potassium 4.3 Chloride 110 H Carbon Dioxide 22.0 Anion Gap 5 BUN 8 Creatinine 0.47 L Estim Creat Clear Calc 165.32 Est GFR (MDRD) Af Amer 191 Est GFR (MDRD) Non-Af 158 BUN/Creatinine Ratio 17.0 Glucose 286 H Calcium 7.6 L Vancomycin Trough POC Glucose 231 H 229 H 01/20/21 01/20/21 01/21/21 17:03 21:15 04:36 Sodium Potassium Chloride Carbon Dioxide Anion Gap BUN Creatinine Estim Creat Clear Calc Est GFR (MDRD) Af Amer Est GFR (MDRD) Non-Af BUN/Creatinine Ratio Glucose Calcium Vancomycin Trough 12.3 POC Glucose 223 H 200 H 01/21/21 07:32 Sodium Potassium Chloride Carbon Dioxide Anion Gap BUN Creatinine Estim Creat Clear Calc Est GFR (MDRD) Af Amer Est GFR (MDRD) Non-Af BUN/Creatinine Ratio Glucose Calcium Vancomycin Trough POC Glucose 193 H Micro: Microbiology 01/20/21 11:17 Mucosa - Nose SARS-CoV-2 Antigen (Rapid) - Final Physical Exam Const alert, oriented x3 and no apparent distress HEENT normocephalic and head/scalp atraumatic Eyes conjunctivae normal and no scleral icterus Neck full ROM, no lymphadenopathy and no JVD General: trachea midline Resp normal respiratory effort, normal air movement, no use of accessory muscles and clear to auscultation bilaterally Cardio regular rate, regular rhythm, S1 normal heart sound and S2 normal heart sound GI normal to inspection, nondistended, normoactive bowel sounds, soft to palpation and non-tender Groin / Perineum Exam: edema and tenderness Extremity normal to inspection, full ROM and normal capillary refill Skin no rashes or lesions noted and skin turgor normal Neuro oriented x3, moves all extremities and no focal motor deficits Psych mental status grossly normal, thought process normal, cooperative, affect normal and speech normal Assessment & Plan Assessment/Plan (1) Hydradenitis: (2) Vulvar abscess: PLAN: 1. Vulvar abscess -Patient underwent surgery yesterday with Dr. Avitia for incision and drainage of hidradenitis diabetic abscess. -Patient currently states pain 4 out of 10 and that pain management currently prescribed effective -Per Dr. Sanabria's note today will undergo wound dressing education -We will continue current antibiotic regimen of metronidazole, vancomycin and ceftriaxone 2. Diabetes mellitus type 2 -Patient currently still having elevated blood sugars however they are have been much more well controlled since admission. -Would encourage patient to be compliant with medication regimen upon discharge, discussed with patient importance of controlling blood sugars in relation to complications uncontrolled diabetes can have. -Would recommend patient be discharged on current insulin regimen for tighter control of diabetes along with regular follow-ups with PCP or endocrinology. 3. Bipolar disorder -Stable, continue current medications 4. Hypertension -Well-controlled, continue lisinopril DVT prophylaxis-Lovenox This patient was seen by LUDIVINA Garcia under the supervision of Dr. Beckman. Documented by User: Dr. Viral Beckman MD 01/21/21 15:39 Subjective Subjective Patient had incision and drainage yesterday. Pain is controlled. Objective Data Lab / Micro Data Result Diagrams: 01/21/21 04:36 01/21/21 04:36 Physical Exam Narrative Physical exam General: Alert, Oriented x3, Cooperative HEENT: Atraumatic, PERRLA, EOMI, Normocephalic Oral: No Gingival or Mucosal Lesions/ Ulcerations Neck: Supple, No JVD, Negative Carotid Bruits Lungs: Air entry diminished in bilateral lung bases. No crepitation/rhonchi Cardiovascular: Regular rate, Regular Rhythm, Normal S1, Normal S2, No murmurs Abdomen: Bowel Sounds Present, Soft, Non Tender, Non-Distended : No renal angle tenderness. No suprapubic tenderness. Dressing was dry. Extremities: No edema, Capillary Refill Less than 3 Seconds Skin: No rashes, No breakdown Musculoskeletal: No Tenderness to Palpation of Joints or Extremities Neurological: Cranial nerves II-XII grossly intact, Deep Tendon Reflexes 2+/4 and Symmetrical, Neuro grossly intact Psych/Mental Status: Normal Affect, Appropriate. Assessment & Plan Assessment/Plan (1) Vulvar ulcer: PLAN: This patient was seen in conjunction with HANNA Weeks. I have independently interviewed and examined the patient and reviewed pertinent history, examination findings, laboratory and plan of management. I have reviewed the note and agree with the documented findings with the few additional points. In brief, patient is admitted for vulvar abscess. Patient on ceftriaxone 2 g along with vancomycin and I think it is appropriate coverage. History of polycystic ovarian disease and type 2 diabetes mellitus with morbid obesity. Glucose is 229. Insulin uptitrated. Patient has incision and drainage by Dr. Avitia on 01/20. Dressing is dry. Patient hemodynamically stable to be discharged. Other comorbidities as listed above I have discussed my assessment with HANNA Weeks and orders have been reviewed. Charges/Coding Visit Charges Inpatient E&M: 72468 Subs Hosp L2
[2021-01-21 09:08] LABS: Absolute Lymphocyte Count 1.23 X10^3/uL (0.83-4.51); Absolute Neutrophil Count 5.4 X10^3/uL (2.0-7.7); Basophil# 0.05 X10^3/uL; Basophil% 0.7 % (0-1); Eosinophil# 0.14 X10^3/uL; Eosinophils% 1.9 % (0-5); Hematocrit 39.3 % (37-47); Hemoglobin 13.1 g/dL (12.0-15.0); Lymphocyte # 1.23 X10^3/ul (0.83-4.51); Lymphocyte % 16.7 % (19-41); Mean Corp Hgb Conc 33.3 g/dL (32-36); Mean Corpuscular Hgb 29.4 pg (27.0-32.0); Mean Corpuscular Volume 88.1 fL (81-99); Mean Platelet Vol. 13.3 fl (6.2-12.0); Monocyte# 0.56 X10^3/uL; Monocyte% 7.6 % (0-10); NRBC Flagged by Analyzer 0 % (0-5); Neutrophil # 5.36 X10^3/uL (2.7-7.7); Neutrophil % 72.7 % (47-70); POSITIVE COUNT YES; RBC Distribution Width CV 13.7 % (11.6-14.6); RBC Distribution Width SD 44.5 fl (35.1-43.9); Red Blood Count 4.46 M/mm3 (4.2-5.4); White Blood Count 7.4 K/mm3 (4.4-11.0)
[2021-01-21 09:11] LABS: Differential Indicated SCAN CRITERIA MET
[2021-01-21 09:17] LABS: Anion Gap 9 (5-15); BUN 7 mg/dL (7-18); BUN/Creat Ratio 19.5 RATIO (10-20); Calcium,Total 7.5 mg/dL (8.5-10.1); Chloride 111 mmol/L (98-107); Creatinine, Serum 0.36 mg/dL (0.55-1.02); EST Glomerular Filtration Rate 215 mL/min (>60); Est Glom Filt Rate - Afr Amer 261 mL/min (>60); Estimated Creatinine Clearance 215.84 ml/min; Glucose 134 mg/dL (74-106); Potassium 4.2 mmol/L (3.5-5.1); Sodium Level 139 mmol/L (136-145)
[2021-01-21 09:23] LABS: Platelet Estimate SLT DEC (ADEQ)
[2021-01-21] MEDS: DAKIN'S SOL HALF STRENGTH (=0.25%) 1 APPLIC TOPICAL (10:08)
--- NOTE | 2021-01-21 10:10 | CASEMGMT ---
THis RN CM to room to discuss discharge plan with pt. Pt declines need for HHC and feels that she will be able to complete wound care/packing on own. Uday RN updated on teaching for pt, voices understanding. Pt states no further concerns/needs. Harsh RN CM
[2021-01-21] MEDS: Enoxaparin 40 MG/0.4 ML Syringe SC (10:13)
[2021-01-21 10:16] LABS: Bedside Glucose 280 mg/dL (70-110)
[2021-01-21 10:21] VITALS: BP 107/64; PULSE 80; PULSE 89; RESP 18; TEMP 37; O2SAT 98
[2021-01-21] MEDS: Docusate Sodium 100 MG Capsule PO (10:42)
[2021-01-21 11:50] LABS: Bedside Glucose 256 mg/dL (70-110)
[2021-01-21] MEDS: HYDROmorphone 1 MG/ML Syringe IV (14:01)
--- NOTE | 2021-01-21 14:55 | NURSING ---
1415 pt was taught how to do her own drsg change. Was given and instructed use clean gloves, and at home also, instructed to lightly roll up the gauze like a tampon and insert into wound and cover it an abd, at home she can use a thee pad with each drsg change. Verbalized and demonstrated appropriate skills with changing her own drsg.
--- NOTE | 2021-01-21 15:13 | PN.SURG_ITS ---
Subjective Subjective Postop #1 Patient is resting comfortably. Tolerated the Dakin's dressing change reasonably well. Objective Data Objective Data Vital Signs: Vital Signs Temp Pulse Resp BP Pulse Ox 98.6 F 89 18 107/64 98 01/21/21 10:21 01/21/21 10:21 01/21/21 10:21 01/21/21 10:01/21/21 10:21 Oxygen Delivery Method Room Air Weight: 230 lb 2.601 oz Body Mass Index (BMI) 34.9 Intake & Output: Intake and Output for Last 24 Hours 01/19/21 01/20/21 01/21/21 23:59 23:59 23:59 Intake Total 1590 / 1590 5265.83 / 5365.83 1790 / 1790 Output Total 950 / 950 Balance 1590 / 1590 5265.83 / 5365.83 840 / 840 Lab / Micro Data Attestation: I reviewed the patient's lab results. Result Diagrams: 01/21/21 04:36 01/21/21 04:36 Labs: Laboratory Results - last 24 hr 01/20/21 01/20/21 01/20/21 15:13 17:03 21:15 WBC RBC Hgb Hct MCV MCH MCHC RDW Std Deviation RDW Coeff of Amada Plt Count MPV Immature Gran % (Auto) Neut % (Auto) Lymph % (Auto) [place] % (Auto) Eos % (Auto) Baso % (Auto) Absolute Neuts (auto) Absolute Lymphs (auto) Nucleated RBC % Platelet Estimate Sodium Potassium Chloride Carbon Dioxide Anion Gap BUN Creatinine Estim Creat Clear Calc Est GFR (MDRD) Af Amer Est GFR (MDRD) Non-Af BUN/Creatinine Ratio Glucose Calcium Vancomycin Trough POC Glucose 229 H 223 H 200 H 01/21/21 01/21/21 01/21/21 04:36 04:36 04:36 WBC 7.4 RBC 4.46 Hgb 13.1 Hct 39.3 MCV 88.1 MCH 29.4 MCHC 33.3 RDW Std Deviation 44.5 H RDW Coeff of Amada 13.7 Plt Count MPV 13.3 H Immature Gran % (Auto) 0.400 Neut % (Auto) 72.7 H Lymph % (Auto) 16.7 L [place] % (Auto) 7.6 Eos % (Auto) 1.9 Baso % (Auto) 0.7 Absolute Neuts (auto) 5.4 Absolute Lymphs (auto) 1.23 Nucleated RBC % 0 Platelet Estimate SLT DEC Sodium 139 Potassium 4.2 Chloride 111 H Carbon Dioxide 19.0 L Anion Gap 9 BUN 7 Creatinine 0.36 L Estim Creat Clear Calc 215.84 Est GFR (MDRD) Af Amer 261 Est GFR (MDRD) Non-Af 215 BUN/Creatinine Ratio 19.5 Glucose 134 H Calcium 7.5 L Vancomycin Trough 12.3 POC Glucose 01/21/21 01/21/21 01/21/21 07:32 10:11 11:42 WBC RBC Hgb Hct MCV MCH MCHC RDW Std Deviation RDW Coeff of Amada Plt Count MPV Immature Gran % (Auto) Neut % (Auto) Lymph % (Auto) [place] % (Auto) Eos % (Auto) Baso % (Auto) Absolute Neuts (auto) Absolute Lymphs (auto) Nucleated RBC % Platelet Estimate Sodium Potassium Chloride Carbon Dioxide Anion Gap BUN Creatinine Estim Creat Clear Calc Est GFR (MDRD) Af Amer Est GFR (MDRD) Non-Af BUN/Creatinine Ratio Glucose Calcium Vancomycin Trough POC Glucose 193 H 280 H 256 H Micro: Microbiology 01/20/21 Unknown Tissue - Groin Gram Stain - Final 01/20/21 Unknown Tissue - Groin Wound Culture - Preliminary Alpha hemolytic organism 01/20/21 11:17 Mucosa - Nose SARS-CoV-2 Antigen (Rapid) - Final Physical Exam Narrative: The right vulval wound is stable. No further evidence of infection. No active bleeding noted. Patient tolerated the Dakin's dressing change reasonably well. She was able to do her own dressing change with the use of a mirror. Assessment & Plan Assessment/Plan (1) Vulvar abscess: (2) Vulvar ulcer: (3) Diabetes mellitus type 2, uncontrolled: QUALIFIERS: Diabetes mellitus complication status: without complication Diabetes mellitus mcfp insulin use: with mcfp use Qualified Code(s): E11.65 - Type 2 diabetes mellitus with hyperglycemia; Z79.4 - custodial (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 of insulin (4) Hydradenitis: (5) Hemoglobin A1c greater than 9.0%: (6) History of venous thromboembolism: (7) Smoker: PLAN: Right vulval wound is stable. No further evidence of infection. No active bleeding noted. Dakin's dressing change was done and patient tolerated reasonably well. She was able to do her own dressing change with the use of a mirror. She has nobody at home to help her and Home Health was available only 3 days per week. If she wasn't able to do her own dressing change with the use of a mirror, then we would have checked into a short term ECF. Anticipate increased metabolic demands from the wound. Encourage nutritional supplementation with protein to help the healing process. Operative culture shows Alpha hemolytic organism thus far. Will discharge home on Doxycycline. If the final culture shows something that is resistant, then antibiotic modification will be necessary. From my standpoint she can be discharged home today. Followup at Wound Center on Sunday01/24/21. If there is a plateau in the healing process or if there is a scar contracture leading to spraying of the urinary stream, then will proceed with delayed closure with skin grafting. Wrote script for Doxycycline (30 tabs). Wrote scripts for Percocet for pain (40 tabs) and for Valium for spasm (14 tabs). May cleanse the wounds with soap and water in the shower at the time of the dressing change. Encouraged patient to stop smoking as it may have deleterious effects on wound healing.
--- NOTE | 2021-01-21 15:17 | PCM.DC ---
Discharge Instructions Diet Discharge Diet: Carb Control Diet and - (encourage nutritional supplementation with protein to help the healing process.) Activity Discharge Activity: May Not Drive and May Shower (at the time of the dressing change.) May resume sexual activity in: No Restrictions Weight Bearing Status: Weight bearing as tolerated Dressing / Incision Call your doctor if your incision/area has: Continuous Slow Oozing, Sudden Increased Bleeding, Increased Pain/ Swelling, Increased Redness, Foul Smelling Discharge and Swelling at the incision site Call your doctor if you observe: Fever of 101 or Higher, Coldness, Increased Pain, Shortness of breath, Chest pain, Calf discomfort and Uncontrolled pain Suture Line Care: - (daily dressing changes with Dakin's dressing changes.) Change Dressing in: 1 day (Dakin's dressing changes daily.) Cleanse incision/area with: Soap & Water (wash wound with soap and water at the time of the Dakin's dressing change.) Additional Dressing/Incision Instructions:: Wring out the Dakin's in the gauze until it is damp. Try to avoid Dakin's on the surrounding skin as it may irritate it. Follow Up Care Please Follow Up With: Valeriy Avitia MD When: sunday01/24/21 at wound center. call [phone] for appt time. Test Results: Test results from this visit will be discussed in further detail at your follow-up appointment, if applicable. Discharge Plan Admission Admit Date/Time: 01/19/21 15:46 Primary Reason for Your Visit: surgery for hidradenitis diabetic vulval abscess Attending Provider: Beulah Sanabria Primary Care Provider: Fartun Murrell Consulting Providers: Rosalino Avila ; Valeriy Avitia Discharge Orders/Prescriptions Prescriptions: New doxycycline hyclate 100 mg capsule 100 mg PO BID Qty: 30 RF: 0 oxycodone-acetaminophen [Percocet] 5-325 mg tablet 1 tab PO Q4H PRN (Reason: pain (scale score 7-10)) 7 Days Qty: 40 RF: 0 diazepam [Valium] 5 mg tablet 5 mg PO BID PRN (Reason: spasms) Qty: 14 RF: 0 Dakin's Solution 0.25 % solution 1 irrig topical DAILY Qty: 473 RF: 4 (DME) Kerlix 4 1/2 X 147 bandage See Rx Instructions .ROUTE .MEDSUPPLY Qty: 12 RF: 3 Continued metformin 500 MG tablet 1,000 mg PO BIDCM RF: 0 lisinopril 20 MG tablet 20 mg PO DAILY RF: 0 loratadine 10 MG tablet 10 mg PO DAILY RF: 0 insulin degludec 100 UNIT/ML insulin pen 70 unit SQ DAILY RF: 0 insulin lispro 100 UNIT/ML cartridge SQ TID RF: 0 fluphenazine decanoate 25 MG/ML solution 25 mg IJ X1 RF: 0 Cogentin 0.5 mg PO/SL BID PRN (Reason: restless legs) RF: 0 Discontinued sulfamethoxazole-trimethoprim [Bactrim DS] 800-160 mg tablet 1 tab PO BID Qty: 20 RF: 0 Referrals / Follow Up: Fartun Murrell MD [Primary Care Provider] - Disposition Disposition (needs filled in before D/C Order can be placed): Home, self care
[2021-01-21 16:21] LABS: Bedside Glucose 176 mg/dL (70-110)
[2021-01-21 16:41] VITALS: BP 157/97; PULSE 99; RESP 18; TEMP 37.1; O2SAT 97
== END 2021-01-21 17:30 | disposition home or self-care (01) | DRG 750 ==
PROVIDERS: Nurse Practitioner Family; Surgery; Admitting Provider Obstetrics & Gynecology; PCP Internal Medicine; Referring Provider Obstetrics & Gynecology; Visit Provider Obstetrics & Gynecology
PROC: 0JBB0ZZ Excision of Perineum Subcutaneous Tissue and Fascia, Open Approach (ICD-10-PCS; principal; 2021-01-20 13:05)
DX: N76.6 Ulceration of vulva (principal); N76.4 Abscess of vulva; L73.2 Hidradenitis suppurativa; E11.65 Type 2 diabetes mellitus with hyperglycemia; E28.2 Polycystic ovarian syndrome; E66.01 Morbid (severe) obesity due to excess calories; F31.9 Bipolar disorder, unspecified; F41.9 Anxiety disorder, unspecified; I10 Essential (primary) hypertension; M79.7 Fibromyalgia; Z68.34 Body mass index [BMI] 34.0-34.9, adult; Z79.4 Long term (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 of insulin; Z86.718 Personal history of other venous thrombosis and embolism; Z86.73 Personal history of transient ischemic attack (TIA), and cerebral infarction without residual deficits; Z79.899 Other long term (current) drug therapy; F17.210 Nicotine dependence, cigarettes, uncomplicated
CPT/HCPCS: 10060; 36415; 80048; 80053; 80202; 82962; 83036; 83735; 85025; 87070; 87075; 87102; 87176; 87205; 87206; 87426; 88304; 88312; 99283; 99406; J7030; J7040; J7050; J7120; A4216; J0696; J2405

== ENCOUNTER 2021-01-31 10:30 | Outpatient (RCR) | payer MEDICARE, MEDICAID, SELFPAY ==
[2021-01-20 12:14] VITALS: BMI 34.9
[2021-01-24 13:08] VITALS: BP 154/100; PULSE 99; RESP 16; TEMP 35.9; BMI 34.9
--- NOTE | 2021-01-24 14:43 | HP.PCM_ITS ---
History of Present Illness Date of Service: 01/24/21 Chief Complaint: Open surgical wound of right vulva and labia. History of Wound: Surgery 01/20/21 - Surgical preparation right vulva involving genitocrural crease extending to labia with incision and drainage hidradenitis diabetic ulcer abscess and excisional debridement with partial vulvectomy including deep subcutaneous tissue (40 cm2). She went to the ED on 01/18 and had I&D of right vulval abscess and started on Bactrim. Symptoms continued to get worse, she went to Dr. Sanabria's office with increased pain and redness, she was direct admitted for IV antibiotics of Vancomycin, Ceftriaxone, and Flagyl. She was discharged on 01/21/21. Operative culture positive for Lactobacillus sp. She was discharged on Doxycycline. Wound care is Dakin's solution 0.25% moistened gauze daily and as needed. She is diabetic with HgA1c was 13.1 on 01/20/21. Today she denies fever and states that her appetite is ok. Progress of Wound: Wound is stable. [facility] Medical History Anxiety and depression Bipolar disorder Diabetes mellitus type 2, uncontrolled Fibromyalgia Hemoglobin A1c greater than 9.0% History of necrotising fasciitis History of venous thromboembolism Hydradenitis Hypertension Hypertension Morbid obesity Polycystic ovary Vulvar abscess Vulvar ulcer Home Medications lisinopril 20 mg PO DAILY 04/23/16 [History Last Taken 01/18/21] loratadine 10 mg PO DAILY 04/23/16 [History Last Taken 01/18/21] metformin 1,000 mg PO BIDCM 04/23/16 [History Last Taken 01/18/21] insulin degludec 70 unit SQ DAILY 09/30/16 [History Last Taken 01/18/21] insulin lispro unit SQ TID 12/05/18 [History Last Taken 01/18/21] Cogentin 0.5 mg PO/SL BID PRN 07/09/20 [History Last Taken Unknown] fluphenazine decanoate 25 mg IJ X1 07/09/20 [History Last Taken Unknown] diazepam [Valium] 5 mg PO BID PRN #14 tab 01/21/21 [Rx Last Taken Unknown] doxycycline hyclate 100 mg PO BID #30 cap 01/21/21 [Rx Last Taken Unknown] gauze bandage [Kerlix] #12 ea 01/21/21 [Rx Last Taken Unknown] oxycodone-acetaminophen [Percocet] 1 tab PO Q4H PRN 7 Days #40 tab 01/21/21 [Rx Last Taken Unknown] sodium hypochlorite [Dakin's Solution] 1 irrig TOPICAL DAILY #473 ml 01/21/21 [Rx Last Taken Unknown] Allergy/AdvReac Type Severity Reaction Status Date / Time amoxicillin [Amoxicillin] Allergy Unknown Verified 01/24/21 13:19 asenapine maleate Allergy Unknown Verified 01/24/21 13:19 [From Saphris] Family History Mother Hypertension Brain aneurysm Father Diabetes Hypertension Grandmother Cancer liver throat kidney Diabetes Hypertension Heart disease CVA (cerebral vascular accident) Breast cancer Grandfather Kidney disease Hypertension CVA (cerebral vascular accident) Surgical History H/O lateral meniscus repair of left knee Social History Smoking Status: Current every day smoker tobacco type: cigarettes alcohol intake: never substance use type: does not use caffeine: Yes frequency: 5-6 times per week seatbelt use: always do you feel safe at home: Yes additional social history: Jonathan- Unemployed Patient is on disability ROS Constitutional Constitutional: Denies fever(s) or headache(s) Eyes Eyes: Reports none Cardiovascular Cardiovascular: Reports none Respiratory/Chest Respiratory/Chest: Reports none Gastrointestinal Gastrointestinal: Reports none Musculoskeletal Musculoskeletal: Reports none Integumentary Integumentary: Reports wounds Neurologic Neurologic: Reports none Endocrine Endocrinology: Reports as per HPI Vital Signs Vital Signs Vital Signs: 01/24/21 13:08 Temperature 96.7 F L Temperature Source Temporal Pulse Rate 99 Respiratory Rate 16 Blood Pressure 154/100 H Blood Pressure Mean 118 Blood Pressure Source Monitor Blood Pressure Position Sitting Blood Pressure Location Left Arm Oxygen Delivery Method Room Air Weight Weight: 230 lb Body Mass Index (BMI) 34.9 Physical Exam Const alert, oriented x3 and no apparent distress General Appearance: cooperative and comfortable HEENT normocephalic Eyes PERRL Neck full ROM Lymph Lymphatic: Negative for lymphadenopathy Resp normal air movement Effort and Inspection: able to speak in complete sentences Cardio regular rate GI normal to inspection, nondistended, normoactive bowel sounds Extremity full ROM and no calf tenderness Skin Rashes: no rashes Wound Narrative: Right vulva wound is pink, very tender to palpation. Neuro oriented x3 and CN's II-XII intact bilaterally Psych mental status grossly normal Debridement Note Debridement Note Post-Debridement Measurements and Additional Note: Post-Debridement Measurements/Treatment - Nurse 1 - General Ulcer Assessment Start: 01/24/21 13:08 Freq: Status: Active Protocol: [email or web address] Activity Type Activity Date Activity User E-Sign Co-Sign Detail Recorded Client Recorded Date Recorded By Document 01/24/21 13:08 DL [id number] 01/24/21 13:18 DL 01/24/21 13:08 - Today's Visit Information Type of service Initial Visit Arrival Mode Ambulatory Patient Identification Verified (Name & Yes ) Patient Requires Transmission-Based No Precautions Finger Stick Blood Sugar(mg/dl) (if 219 indicated): Height and Weight Height 5 ft 8 in Weight 230 lb Weight in Pounds 230.0 lbs Body Mass Index (BMI) 34.9 BMI Classification Obese BSA - Sunday 2.17 Vital Signs Temperature (97.8 F-99.1 F) 96.7 F L Temperature Source Temporal Pulse Rate (60-100) 99 Pulse Location Monitor Respiratory Rate (12-18) 16 Respiratory rate source Observation Oxygen Delivery Method Room Air Blood Pressure (90/60-120/80) 154/100 H Blood Pressure Mean 118 Source Monitor Position Sitting Blood Pressure Location Left Arm History Since Last Visit- (Skip if this is Patient's initial visit) Left Footwear Regular Shoe Right Footwear Regular Shoe Pain Scale: 0-10 Numeric Is Patient Pain Free? Yes Communication Assessment Preferred language [place] [employer] Required No Able to Read Yes Able to Write Yes Communication Tools None Right Hearing Abillity Normal Left Hearing Abillity Normal Visual Assistive Devices Glasses Teaching Assessment Preferences Verbal,Written, Audio/Visual, Demonstration Barriers to Learning None Readiness To Learn Excellent Willingness to Engage in Self Management High Activies Readiness to Engage in Self Management High Activities Anxiety Level Calm Cooperation Cooperative Perception Coherent Interest in Health Problem Asks Questions Education Importance Acknowledges Need Does Patient Smoke tobacco or other No substances Smoking Status Current every day smoker Is Patient Diabetic Yes Culture/Protestant/[employer]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 Cultural/Protestant Needs that may affect No Treatment Plan Teaching: Wound Center *Welcome to the Wound Center -Person Taught Patient -Teaching Method Discussion -Response to teaching Verbalize understanding Welcome to the Wound Care Center [place] - Nurse 1 - General Ulcer Measurement Start: 01/24/21 13:08 Freq: Status: Active Protocol: Activity Type Activity Date Activity User E-Sign Co-Sign Detail Recorded Client Recorded Date Recorded By Document 01/24/21 13:08 DL [id number] 01/24/21 13:18 DL 01/24/21 13:08 Wound Center Nurse 1 #2- R GROIN HYDRADENITIS-POST OP -Combined with other wound No -Current Size (cm) - Length 8 -Current Size (cm) - Width 2 -Current Size (cm) - Depth 2.4 -Total Square Cm 16 -Date of Last Picture (Recall this 01/24/21 field) -Photo Taken Yes -Epithelialization None Present -Tunneling No -Undermining/Tunneling No -Circular Undermining No -Exudate Amt Large -Exudate Type Serosanguineous -Wound Margin Distinct, Outline Attached -Granulation Amt Medium (34-66%) -Granulation Quality Red -Slough/Fibrin Yes -Necrosis Amt Medium (34-66%) -Necrotic Tissue Type Adherent Slough -Texture (Michelle-wound Skin Appearance) Assessed -Moisture (Michelle-wound Skin Appearance) Assessed -Color (Michelle-wound Skin Appearance) Assessed -Temperature (Michelle-wound Skin No Abnormality Appearance) (Pt Warm) -Tenderness on Palpation (Michelle-wound Yes Skin Appearance) -Ulcer Cleansing SOAPY WATER -Foul Odor after Cleansing No -Anesthetic Used 4% Lidocaine Solution - Nurse 2 - General Ulcer CM Notes Start: 01/24/21 13:08 Freq: Status: Active Protocol: Activity Type Activity Date Activity User E-Sign Co-Sign Detail Recorded Client Recorded Date Recorded By Document 01/24/21 13:45 BRYANT [id number] 01/24/21 13:46 BRYANT 01/24/21 13:45 Wound Center Nurse 2 -Correct Patient No -Correct Side, Site, Position No -Correct Procedure No -Procedure Performed No -Wound/Ulcer Outcome Not Healed Pain Scale: 0-10 Numeric Is Patient Pain Free? Yes No debridement was completed: No debridement was completed today Charges/Coding Procedures Integumentary [id number]: [id number] Global Visit Assessment/Plan Assessment/Plan (1) Open wound of vulva: CODE(S): S31.40XA - Unspecified open wound of vagina and vulva, initial encounter QUALIFIERS: Encounter type: initial encounter Qualified Code(s): S31.40XA - Unspecified open wound of vagina and vulva, initial encounter (2) Vulvar abscess: CODE(S): N76.4 - Abscess of vulva (3) Hemoglobin A1c greater than 9.0%: CODE(S): R73.09 - Other abnormal glucose (4) Smoker: CODE(S): F17.200 - Nicotine dependence, unspecified, uncomplicated (5) Morbid obesity: CODE(S): E66.01 - Morbid (severe) obesity due to excess calories PLAN: Wound care - Dakin's 0.25% moistened gauze daily and as needed covered with dry gauze or ABD pad. Continue Doxycycline. Will consult Dr. Rosanne Matthews, endocrinology for assistance of getting blood sugars under better control. HgA1c 13.1 on 01/20/21. Discussed getting pain under better control. Encouraged patient to stop smoking as it may have deleterious effects on wound healing. Follow up one week for nurse visit. Will follow up with me on 02/08/21.
[2021-01-31 10:34] VITALS: BP 170/106; PULSE 99; RESP 16; TEMP 36.8; BMI 34.9
== END 2021-02-02 23:59 ==
LOC: WC 10:30
PROVIDERS: PCP Internal Medicine; Referring Provider Surgery; Visit Provider Nurse Practitioner Family
DX: N76.4 Abscess of vulva (principal); L73.2 Hidradenitis suppurativa; T81.89XA Other complications of procedures, not elsewhere classified, initial encounter; S31.40XA Unspecified open wound of vagina and vulva, initial encounter; Y83.8 Other surgical procedures as the cause of abnormal reaction of the patient, or of later complication, without mention of misadventure at the time of the procedure; E11.65 Type 2 diabetes mellitus with hyperglycemia; M79.7 Fibromyalgia; I10 Essential (primary) hypertension; E28.2 Polycystic ovarian syndrome; F17.210 Nicotine dependence, cigarettes, uncomplicated; F31.9 Bipolar disorder, unspecified; F41.9 Anxiety disorder, unspecified; E66.01 Morbid (severe) obesity due to excess calories; Z68.34 Body mass index [BMI] 34.0-34.9, adult; Z79.4 Long term (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 of insulin; Z79.899 Other long term (current) drug therapy; Z86.718 Personal history of other venous thrombosis and embolism
CPT/HCPCS: 99212; 99213; G0463

== ENCOUNTER → 2021-02-03 16:26 | Outpatient (CLI) | payer MEDICARE, MEDICAID, SELFPAY ==
[2021-01-31 10:34] VITALS: BMI 34.9
[2021-02-03 17:39] LABS: AST(SGOT) 27 U/L (15-37); Alanine Aminotransfer ALT/SGPT 57 U/L (13-56); Albumin, Serum 3.2 g/dL (3.2-5.0); Alkaline Phosphatase 106 U/L (45-117); Bilirubin, Direct 0.14 mg/dL (0.00-0.30); Globulin 4.5 g/dL (2.2-4.2); Protein, Total 7.7 g/dL (6.4-8.2)
== END ==
PROVIDERS: PCP Internal Medicine; Referring Provider Nurse Practitioner Family; Visit Provider Nurse Practitioner Family
DX: L98.499 Non-pressure chronic ulcer of skin of other sites with unspecified severity (principal); L73.2 Hidradenitis suppurativa; Z79.2 Long term (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 of antibiotics
CPT/HCPCS: 36415; 80076

== ENCOUNTER 2021-02-28 09:15 | Outpatient (RCR) | payer MEDICARE, MEDICAID, SELFPAY ==
[2021-02-03 00:35] VITALS: BP 170/106; PULSE 99; RESP 16; TEMP 36.8
[2021-02-08 14:49] VITALS: BP 156/113; PULSE 119; RESP 16; BMI 34.9
--- NOTE | 2021-02-08 16:20 | PN.PCM_ITS ---
History of Present Illness Date of Service: 02/08/21 Chief Complaint: Open surgical wound of right vulva and labia. History of Wound: Surgery 01/20/21 - Surgical preparation right vulva involving genitocrural crease extending to labia with incision and drainage hidradenitis diabetic ulcer abscess and excisional debridement with partial vulvectomy including deep subcutaneous tissue (40 cm2). She went to the ED on 01/18 and had I&D of right vulval abscess and started on Bactrim. Symptoms continued to get worse, she went to Dr. Sanabria's office with increased pain and redness, she was direct admitted for IV antibiotics of Vancomycin, Ceftriaxone, and Flagyl. She was discharged on 01/21/21. Operative culture positive for Lactobacillus sp. She was discharged on Doxycycline. Wound care is Dakin's solution 0.25% moistened gauze daily and as needed. She is diabetic with HgA1c was 13.1 on 01/20/21. Today she denies fever and states that her appetite is ok. Progress of Wound: Stable. Objective Data Objective Data Vital Signs: Vital Signs Temp Pulse Resp BP 98.3 F 119 H 16 156/113 H 02/03/21 00:35 02/08/21 14:49 02/08/21 14:49 02/08/21 14:49 Oxygen Delivery Method Room Air Weight: 230 lb Body Mass Index (BMI) 34.9 Charges/Coding Procedures Integumentary 111xxx-113xx: 84105 Global Visit Physical Exam Const alert and oriented x3 General Appearance: cooperative HEENT normocephalic Head and Scalp: atraumatic Eyes PERRL Lymph Lymphatic: no lymphedema noted Resp normal respiratory effort Cardio regular rate GI non-tender Palpation: soft Extremity no clubbing, cyanosis or edema Skin Wound Narrative: Right vulva wound shows some improvement. There is decreased depth of the wound. She is has increased redness in her bilateral groin and pannus skin folds. Appears to be yeast. Neuro CN's II-XII intact bilaterally Psych Appearance: grossly normal Debridement Note Debridement Note Post-Debridement Measurements and Additional Note: Post-Debridement Measurements/Treatment NADER - Nurse 1 - General Ulcer Assessment Start: 02/08/21 14:48 Freq: Status: Active Protocol: IVONNE Activity Type Activity Date Activity User E-Sign Co-Sign Detail Recorded Client Recorded Date Recorded By Document 02/08/21 14:49 [facility] [id number] 02/08/21 14:54 [facility] 02/08/21 14:49 - Today's Visit Information Type of service Follow-up Visit (Physician/[employer] ) Arrival Mode Ambulatory Transfer Assistance None Patient Identification Verified (Name & Yes ) Patient Requires Transmission-Based No Precautions Height and Weight Body Mass Index (BMI) 34.9 BMI Classification Obese Vital Signs Pulse Rate (60-100) 119 H Pulse Location Monitor Respiratory Rate (12-18) 16 Respiratory rate source Observation Oxygen Delivery Method Room Air Blood Pressure (90/60-120/80) 156/113 H Blood Pressure Mean (mm Hg) 127 Source Monitor Position Sitting Blood Pressure Location Left Arm History Since Last Visit- (Skip if this is Patient's initial visit) Have you changed medications since your No last visit? Any new allergies or adverse reactions No Had a fall/change in ADL's that may No increase risk of falls Signs or symptoms of abuse and/or No neglect since last visit Have you been in the hospital since your No last visit? Has dressing in place as prescribed Yes Has compression in place as prescribed N/A Has offloadiing in place as prescribed N/A Experienced any changes in pain level or No management Left Footwear Regular Shoe Right Footwear Regular Shoe Pain Scale: 0-10 Numeric Is Patient Pain Free? Yes - Nurse 1 - General Ulcer Measurement Start: 02/08/21 14:48 Freq: Status: Active Protocol: Activity Type Activity Date Activity User E-Sign Co-Sign Detail Recorded Client Recorded Date Recorded By Document 02/08/21 14:49 [facility] [id number] 02/08/21 14:54 [facility] 02/08/21 14:49 Wound Center Nurse 1 #2- R GROIN HYDRADENITIS-POST OP -Combined with other wound No -Current Size (cm) - Length 7.5 -Current Size (cm) - Width 1.4 -Current Size (cm) - Depth 1.4 -Total Square Cm 10.50 -Photo Taken No -Epithelialization None Present -Tunneling No -Undermining/Tunneling No -Circular Undermining No -Exudate Amt Large -Exudate Type Serosanguineous -Wound Margin Distinct, Outline Attached -Granulation Amt Medium (34-66%) -Granulation Quality Pale,Red -Slough/Fibrin Yes -Necrosis Amt Medium (34-66%) -Necrotic Tissue Type Adherent Slough -Texture (Michelle-wound Skin Appearance) Assessed, Scarring -Moisture (Michelle-wound Skin Appearance) Assessed -Color (Michelle-wound Skin Appearance) Assessed -Temperature (Michelle-wound Skin No Abnormality Appearance) (Pt Warm) -Tenderness on Palpation (Michelle-wound Yes Skin Appearance) -Ulcer Cleansing Rinsed/ Irrigated with Saline -Foul Odor after Cleansing No -Anesthetic Used 4% Lidocaine Solution WC - Nurse 2 - General Ulcer CM Notes Start: 02/08/21 14:48 Freq: Status: Active Protocol: Activity Type Activity Date Activity User E-Sign Co-Sign Detail Recorded Client Recorded Date Recorded By Document 02/08/21 15:28 BRYANT [id number] 02/08/21 15:30 02/08/21 15:28 Wound Center Nurse 2 -Time 15:28 -Correct Patient Yes -Correct Side, Site, Position Yes -Correct Procedure Yes -Procedure Performed Yes -Type of Procedure Debridement -Clinical Debridement Subcutaneous -Tissue Removed Subcutaneous -Post Debridement (cm) - Length 7.4 -Post Debridement (cm) - Width 1.6 -Post Debridement (cm) - Depth 2.1 -Total Square (Post) (cm) 11.84 -Area of Debridement (cm) - Length 7.4 -Area of Debridement (cm) - Width 1.6 -Total Square (Area) (cm) 11.84 -Tunneling No -Undermining/Tunneling No -Circular Undermining No -Wound/Ulcer Outcome Not Healed -Ulcer Cleansing Rinsed/ Irrigated with Saline -Foul Odor after Cleansing No -Bioengineered Tissue No -Bleeding Controlled with Pressure -Offloading No -Treatment Response Procedure Tolerated Well -Debridement - Subq, 1st 20sq cm Yes Pain Scale: 0-10 Numeric Is Patient Pain Free? Yes - Nurse 3 - General Ulcer D/C NN Start: 02/08/21 14:48 Freq: Status: Active Protocol: Activity Type Activity Date Activity User E-Sign Co-Sign Detail Recorded Client Recorded Date Recorded By Document 02/08/21 15:31 JF [id number] 02/08/21 15:31 JF 02/08/21 15:31 Wound Care Nurse 3 #2- R GROIN HYDRADENITIS-POST OP -Ulcer Cleansing Rinsed/ Irrigated with Saline -Foul Odor after Cleansing No -Primary Dressing Applied Aquacel AG 4x4 -Primary Dressing Covered/Secured with Dry Gauze, Secured with Tape -Aquacel AG 4x4 1 Pain Scale: 0-10 Numeric Is Patient Pain Free? Yes WC - Visit Discharge Discharge Condition Stable Ambulatory Status Ambulatory Transportation Private Auto Medication Reconcilliation completed & Yes provided to patient/care provider Clinical Summary of Care Provided Yes Wound debrided: Vulva wound Laterality: Right Type of Debridement: Excisional debridement Anesthesia Used: 5% Lidocaine Gel Depth: Down to and including healthy tissue and in the subcutaneous layer Percentage of wound debrided: 100 Instrument Used: 5mm curette Tissue Removed: Subcutaneous tissue and slough Severity: Fat Layer Exposed Amount of bleeding with debridement: Mild Bleeding Controlled with: Pressure and Compression and gauze Patient tolerated procedure: Patient tolerated procedure well Assessment/Plan Assessment/Plan (1) Open wound of vulva: CODE(S): S31.40XA - Unspecified open wound of vagina and vulva, initial encounter QUALIFIERS: Encounter type: initial encounter Qualified Code(s): S31.40XA - Unspecified open wound of vagina and vulva, initial encounter (2) Vulvar abscess: CODE(S): N76.4 - Abscess of vulva (3) Acute post-operative pain: CODE(S): G89.18 - Other acute postprocedural pain (4) Hemoglobin A1c greater than 9.0%: CODE(S): R73.09 - Other abnormal glucose (5) Morbid obesity: CODE(S): E66.01 - Morbid (severe) obesity due to excess calories (6) Hydradenitis: CODE(S): L73.2 - Hidradenitis suppurativa (7) Diabetes mellitus type 2, uncontrolled: CODE(S): E11.65 - Type 2 diabetes mellitus with hyperglycemia QUALIFIERS: Diabetes mellitus complication status: without complication Diabetes mellitus shelter insulin use: with shelter use Qualified Code(s): E11.65 - Type 2 diabetes mellitus with hyperglycemia; Z79.4 - corrections specialist (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 of insulin (8) Smoker: CODE(S): F17.200 - Nicotine dependence, unspecified, uncomplicated PLAN: Wound care - Dakin's 0.25% moistened gauze daily and as needed covered with dry gauze or ABD pad. Completed Doxycycline. Will consult Dr. Rosanne Matthews, endocrinology for assistance of getting blood sugars under better control. HgA1c 13.1 on 01/20/21. For her yeast infection, she was placed on Diflucan. Will also start her on Nystatin powder twice daily. With how warm the temperatures are and her obvious perspiration in these areas, she would benefit from a medicated powder to help get better control of the yeast infection. Encouraged patient to stop smoking as it may have deleterious effects on wound healing. Follow up one week.
[2021-02-14 08:34] VITALS: BP 124/79; PULSE 99; RESP 18; TEMP 36.1; BMI 34.9
--- NOTE | 2021-02-14 09:24 | PN.PCM_ITS ---
History of Present Illness Date of Service: 02/14/21 Chief Complaint: Open surgical wound of right vulva and labia. History of Wound: Surgery 01/20/21 - Surgical preparation right vulva involving genitocrural crease extending to labia with incision and drainage hidradenitis diabetic ulcer abscess and excisional debridement with partial vulvectomy including deep subcutaneous tissue (40 cm2). She went to the ED on 01/18 and had I&D of right vulval abscess and started on Bactrim. Symptoms continued to get worse, she went to Dr. Sanabria's office with increased pain and redness, she was direct admitted for IV antibiotics of Vancomycin, Ceftriaxone, and Flagyl. She was discharged on 01/21/21. Operative culture positive for Lactobacillus sp. She was discharged on Doxycycline. Wound care is Dakin's solution 0.25% moistened gauze daily and as needed. She is diabetic with HgA1c was 13.1 on 01/20/21. Today she denies fever and states that her appetite is ok. Progress of Wound: Improved Subjective Subjective Patient states that the yeast rash in the groin and pannus area are improving and are less surgery. Objective Data Objective Data Vital Signs: Vital Signs Temp Pulse Resp BP 96.9 F L 99 18 124/79 H 02/14/21 08:34 02/14/21 08:34 02/14/21 08:34 02/14/21 08:34 Oxygen Delivery Method Room Air Weight: 230 lb Body Mass Index (BMI) 34.9 Charges/Coding Procedures Integumentary 111xxx-113xx: 85591 Global Visit Physical Exam Const alert and oriented x3 General Appearance: cooperative HEENT normocephalic Eyes PERRL Lymph Lymphatic: no lymphedema noted Resp normal respiratory effort Cardio regular rate GI non-tender Palpation: soft Extremity no clubbing, cyanosis or edema Skin Wound Narrative: Right vulva wound is beefy pink. Depth is decreasing. Michelle wound is stable. The red, yeasty rash in her bilateral groin and under her pannus is improving with the Diflucan and the nystatin powder. Neuro CN's II-XII intact bilaterally Psych Appearance: grossly normal Debridement Note Debridement Note Post-Debridement Measurements and Additional Note: Post-Debridement Measurements/Treatment WC - Nurse 1 - General Ulcer Assessment Start: 02/08/21 14:48 Freq: Status: Active Protocol: IVONNE Activity Type Activity Date Activity User E-Sign Co-Sign Detail Recorded Client Recorded Date Recorded By Document 02/08/21 14:49 [facility] [id number] 02/08/21 14:54 [facility] Document 02/14/21 08:34 DL [id number] 02/14/21 08:38 DL 02/08/21 02/14/21 14:49 08:34 - Today's Visit Information Type of service Follow-up Visit Follow-up Visit (Physician/SMOCKER (Physician/SMOCKER ) ) Arrival Mode Ambulatory Ambulatory Transfer Assistance None None Patient Identification Verified (Name & Yes Yes ) Patient Requires Transmission-Based No No Precautions Height and Weight Body Mass Index (BMI) 34.9 34.9 BMI Classification Obese Obese Temperature (97.8 F-99.1 F) 96.9 F L Temperature Source Temporal Vital Signs Pulse Rate (60-100) 119 H 99 Pulse Location Monitor Monitor Respiratory Rate (12-18) 16 18 Respiratory rate source Observation Oxygen Delivery Method Room Air Blood Pressure (90/60-120/80) 156/113 H 124/79 H Blood Pressure Mean (mm Hg) 127 94 Source Monitor Monitor Position Sitting Blood Pressure Location Left Arm History Since Last Visit- (Skip if this is Patient's initial visit) Have you changed medications since your No No last visit? Any new allergies or adverse reactions No No Had a fall/change in ADL's that may No No increase risk of falls Signs or symptoms of abuse and/or No No neglect since last visit Have you been in the hospital since your No No last visit? Has dressing in place as prescribed Yes Yes Has compression in place as prescribed N/A N/A Has offloadiing in place as prescribed N/A N/A Experienced any changes in pain level or No No management Left Footwear Regular Shoe Right Footwear Regular Shoe Pain Scale: 0-10 Numeric Is Patient Pain Free? Yes - Nurse 1 - General Ulcer Measurement Start: 02/08/21 14:48 Freq: Status: Active Protocol: Activity Type Activity Date Activity User E-Sign Co-Sign Detail Recorded Client Recorded Date Recorded By Document 02/08/21 14:49 [facility] [id number] 02/08/21 14:54 [facility] Document 02/14/21 08:34 DL [id number] 02/14/21 08:38 DL 02/08/21 02/14/21 14:49 08:34 Wound Center Nurse 1 #2- R GROIN HYDRADENITIS-POST OP -Combined with other wound No -Current Size (cm) - Length 7.5 7 -Current Size (cm) - Width 1.4 1 -Current Size (cm) - Depth 1.4 1 -Total Square Cm 10.50 7 -Photo Taken No No -Epithelialization None Present -Tunneling No -Undermining/Tunneling No -Circular Undermining No -Exudate Amt Large Small -Exudate Type Serosanguineous Serosanguineous -Wound Margin Distinct, Distinct, Outline Outline Attached Attached -Granulation Amt Medium (34-66%) Large (67-100%) -Granulation Quality Pale,Red Red -Slough/Fibrin Yes -Necrosis Amt Medium (34-66%) Small (1-33%) -Necrotic Tissue Type Adherent Slough Adherent Slough -Structure Exposed N/A -Texture (Michelle-wound Skin Appearance) Assessed, Scarring Scarring -Moisture (Michelle-wound Skin Appearance) Assessed No Abnormality -Color (Michelle-wound Skin Appearance) Assessed Rubor -Temperature (Michelle-wound Skin No Abnormality No Abnormality Appearance) (Pt Warm) (Pt Warm) -Tenderness on Palpation (Michelle-wound Yes No Skin Appearance) -Ulcer Cleansing Rinsed/ Wound Cleanser Irrigated with Saline -Foul Odor after Cleansing No No -Anesthetic Used 4% Lidocaine 4% Lidocaine Solution Solution WC - Nurse 2 - General Ulcer CM Notes Start: 02/08/21 14:48 Freq: Status: Active Protocol: Activity Type Activity Date Activity User E-Sign Co-Sign Detail Recorded Client Recorded Date Recorded By Document 02/08/21 15:28 [id number] 02/08/21 15:30 Document 02/14/21 09:[address] [id number] 02/14/21 09:24 PL 02/08/21 02/14/21 15:28 09:23 Wound Center Nurse 2 #2- R GROIN HYDRADENITIS-POST OP -Time 15:28 08:58 -Correct Patient Yes Yes -Correct Side, Site, Position Yes -Correct Procedure Yes Yes -Procedure Performed Yes -Type of Procedure Debridement Debridement -Clinical Debridement Subcutaneous Subcutaneous -Tissue Removed Subcutaneous Subcutaneous -Post Debridement (cm) - Length 7.4 8.3 -Post Debridement (cm) - Width 1.6 2.5 -Post Debridement (cm) - Depth 2.1 1.4 -Total Square (Post) (cm) 11.84 20.75 -Area of Debridement (cm) - Length 7.4 8.3 -Area of Debridement (cm) - Width 1.6 2.5 -Total Square (Area) (cm) 11.84 20.75 -Tunneling No No -Undermining/Tunneling No No -Circular Undermining No No -Wound/Ulcer Outcome Not Healed Not Healed -Ulcer Cleansing Rinsed/ Rinsed/ Irrigated with Irrigated with Saline Saline -Foul Odor after Cleansing No No -Bioengineered Tissue No No -Bleeding Controlled with Pressure Pressure -Offloading No -Treatment Response Procedure Procedure Tolerated Well Tolerated Well -Debridement - Subq, 1st 20sq cm Yes Yes -Debridement, SubQ, ea addt'l 20sq cm 1 or part thereof Pain Scale: 0-10 Numeric Is Patient Pain Free? Yes Yes - Nurse 3 - General Ulcer D/C NN Start: 02/08/21 14:48 Freq: Status: Active Protocol: Activity Type Activity Date Activity User E-Sign Co-Sign Detail Recorded Client Recorded Date Recorded By Document 02/08/21 15:31 [id number] 02/08/21 15:31 Document 02/14/21 09:08 [facility] [id number] 02/14/21 09:09 [facility] 02/08/21 02/14/21 15:31 09:08 Wound Care Nurse 3 #2- R GROIN HYDRADENITIS-POST OP -Ulcer Cleansing Rinsed/ Rinsed/ Irrigated with Irrigated with Saline Saline -Foul Odor after Cleansing No No -Primary Dressing Applied Aquacel AG 4x4 Aquacel AG 4x4 -Primary Dressing Covered/Secured with Dry Gauze, Dry Gauze, Secured with Secured with Tape Tape,Other -Other Covering abd -Aquacel AG 4x4 1 1 Treatment Response Procedure Tolerated Well Pain Scale: 0-10 Numeric Is Patient Pain Free? Yes Yes - Visit Discharge Discharge Condition Stable Stable Ambulatory Status Ambulatory Ambulatory Transportation Private Auto Private Auto Medication Reconcilliation completed & Yes provided to patient/care provider Clinical Summary of Care Provided Yes Wound debrided: Vulva wound Laterality: Right Type of Debridement: Excisional debridement Anesthesia Used: 5% Lidocaine Gel Depth: Down to and including healthy tissue and in the subcutaneous layer Percentage of wound debrided: 100 Instrument Used: 5mm curette Tissue Removed: Subcutaneous tissue and slough Severity: Fat Layer Exposed Amount of bleeding with debridement: Mild Bleeding Controlled with: Pressure Patient tolerated procedure: Patient tolerated procedure well Assessment/Plan Assessment/Plan (1) Open wound of vulva: CODE(S): S31.40XA - Unspecified open wound of vagina and vulva, initial encounter QUALIFIERS: Encounter type: initial encounter Qualified Code(s): S31.40XA - Unspecified open wound of vagina and vulva, initial encounter (2) Vulvar abscess: CODE(S): N76.4 - Abscess of vulva (3) Acute post-operative pain: CODE(S): G89.18 - Other acute postprocedural pain (4) Hemoglobin A1c greater than 9.0%: CODE(S): R73.09 - Other abnormal glucose (5) Morbid obesity: CODE(S): E66.01 - Morbid (severe) obesity due to excess calories (6) Hydradenitis: CODE(S): L73.2 - Hidradenitis suppurativa (7) Diabetes mellitus type 2, uncontrolled: CODE(S): E11.65 - Type 2 diabetes mellitus with hyperglycemia QUALIFIERS: Diabetes mellitus complication status: without complication Diabetes mellitus halfway insulin use: with computer terminal operator use Qualified Code(s): E11.65 - Type 2 diabetes mellitus with hyperglycemia; Z79.4 - nursing home (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 of insulin PLAN: Wound care - Dakin's 0.25% moistened gauze daily and as needed covered with dry gauze or ABD pad. Completed Doxycycline. Consulted Dr. Rosanne Matthews, endocrinology for assistance of getting blood sugars under better control. HgA1c 13.1 on 01/20/21. For her yeast infection, she was placed on Diflucan and Nystatin powder twice daily. With how warm the temperatures are and her obvious perspiration in these areas, she would benefit from a medicated powder to help get better control of the yeast infection. Encouraged patient to stop smoking as it may have deleterious effects on wound healing. Follow up one week.
[2021-02-21 08:32] VITALS: BP 171/104; PULSE 97; RESP 16; TEMP 37.1; BMI 34.9
--- NOTE | 2021-02-21 12:27 | PCM.WC.PN ---
History of Present Illness Date of Service: 02/21/21 Chief Complaint: Open surgical wound of right vulva and labia. History of Wound: Surgery 01/20/21 - Surgical preparation right vulva involving genitocrural crease extending to labia with incision and drainage hidradenitis diabetic ulcer abscess and excisional debridement with partial vulvectomy including deep subcutaneous tissue (40 cm2). She went to the ED on 01/18 and had I&D of right vulval abscess and started on Bactrim. Symptoms continued to get worse, she went to Dr. Sanabria's office with increased pain and redness, she was direct admitted for IV antibiotics of Vancomycin, Ceftriaxone, and Flagyl. She was discharged on 01/21/21. Operative culture positive for Lactobacillus sp. She was discharged on Doxycycline. Wound care is Dakin's solution 0.25% moistened gauze daily and as needed. She is diabetic with HgA1c was 13.1 on 01/20/21. She has been having issues with a yeast rash under her pannus and in her groin bilaterally that she was placed on Diflucan daily and had a small amount of improvement. Nystatin powder was added and she is having an improvement in her symptoms. Today she denies fever and states that her appetite is ok. Progress of Wound: Improved Objective Data Objective Data Vital Signs: Vital Signs Temp Pulse Resp BP 98.7 F 97 16 171/104 H 02/21/21 08:32 02/21/21 08:32 02/21/21 08:32 02/21/21 08:32 Oxygen Delivery Method Room Air Weight: 230 lb Body Mass Index (BMI) 34.9 Charges/Coding Procedures Integumentary 111xxx-113xx: [id number] Global Visit Physical Exam Const alert and oriented x3 General Appearance: cooperative HEENT normocephalic Head and Scalp: atraumatic Eyes PERRL Lymph Lymphatic: no lymphedema noted Resp normal respiratory effort Cardio regular rate GI non-tender Palpation: soft Extremity no clubbing, cyanosis or edema Skin Wound Narrative: Right vulva ulcer is beefy pink and decreasing in size. Neuro CN's II-XII intact bilaterally Psych Appearance: grossly normal Debridement Note Debridement Note Post-Debridement Measurements and Additional Note: Post-Debridement Measurements/Treatment WC - Nurse 1 - General Ulcer Assessment Start: 07/06/21 14:48 Freq: Status: Active Protocol: WC.LOWEXT Activity Type Activity Date Activity User E-Sign Co-Sign Detail Recorded Client Recorded Date Recorded By Document 02/08/21 14:49 [facility] [id number] 02/08/21 14:54 [facility] Document 02/14/21 08:34 DL [id number] 02/14/21 08:38 DL Document 02/21/21 08:32 [facility] [id number] 02/21/21 08:38 [facility] 02/08/21 02/14/21 02/21/21 14:49 08:34 08:32 WC - Today's Visit Information Type of service Follow-up Visit Follow-up Visit Follow-up Visit (Physician/PROFESSOR OF GENETICS (Physician/PROFESSOR OF GENETICS (Physician/PROFESSOR OF GENETICS ) ) ) Arrival Mode Ambulatory Ambulatory Ambulatory Transfer Assistance None None None Patient Identification Verified (Name & Yes Yes Yes ) Patient Requires Transmission-Based No No No Precautions Height and Weight Body Mass Index (BMI) 34.9 34.9 34.9 BMI Classification Obese Obese Obese Temperature (97.8 F-99.1 F) 96.9 F L 98.7 F Temperature Source Temporal Temporal Vital Signs Pulse Rate (60-100) 119 H 99 97 Pulse Location Monitor Monitor Monitor Respiratory Rate (12-18) 16 18 16 Respiratory rate source Observation Observation Oxygen Delivery Method Room Air Room Air Blood Pressure (90/60-120/80) 156/113 H 124/79 H 171/104 H Blood Pressure Mean (mm Hg) 127 94 126 Source Monitor Monitor Monitor Position Sitting Sitting Blood Pressure Location Left Arm Left Arm Comment PT DID NOT TAKE BP MEDS THIS AM, HAS APPT W/ PCP TOMORROW TO DISCUSS BP'S History Since Last Visit- (Skip if this is Patient's initial visit) Have you changed medications since your No No No last visit? Any new allergies or adverse reactions No No No Had a fall/change in ADL's that may No No No increase risk of falls Signs or symptoms of abuse and/or No No No neglect since last visit Have you been in the hospital since your No No No last visit? Has dressing in place as prescribed Yes Yes Yes Has compression in place as prescribed N/A N/A N/A Has offloadiing in place as prescribed N/A N/A N/A Experienced any changes in pain level or No No No management Left Footwear Regular Shoe Regular Shoe Right Footwear Regular Shoe Regular Shoe Pain Scale: 0-10 Numeric Is Patient Pain Free? Yes WC - Nurse 1 - General Ulcer Measurement Start: 02/08/21 14:48 Freq: Status: Active Protocol: Activity Type Activity Date Activity User E-Sign Co-Sign Detail Recorded Client Recorded Date Recorded By Document 02/08/21 14:49 BM [id number] 02/08/21 14:54 BM[facility] Document 02/14/21 08:34 DL [id number] 02/14/21 08:38 DL Document 02/21/21 08:32 BMF [id number] 02/21/21 08:38 BMF 02/08/21 02/14/21 02/21/21 14:49 08:34 08:32 Wound Center Nurse 1 #2- R GROIN HYDRADENITIS-POST OP -Combined with other wound No No -Current Size (cm) - Length 7.5 7 7.2 -Current Size (cm) - Width 1.4 1 1 -Current Size (cm) - Depth 1.4 1 1.1 -Total Square Cm 10.50 7 7.2 -Photo Taken No No No -Epithelialization None Present Small 1-33% -Tunneling No No -Undermining/Tunneling No No -Circular Undermining No -Exudate Amt Large Small Medium -Exudate Type Serosanguineous Serosanguineous Serosanguineous -Wound Margin Distinct, Distinct, Distinct, Outline Outline Outline Attached Attached Attached -Granulation Amt Medium (34-66%) Large (67-100%) Large (67-100%) -Granulation Quality Pale,Red Red Red -Slough/Fibrin Yes Yes -Necrosis Amt Medium (34-66%) Small (1-33%) Small (1-33%) -Necrotic Tissue Type Adherent Slough Adherent Slough Adherent Slough -Structure Exposed N/A -Texture (Michelle-wound Skin Appearance) Assessed, Scarring Assessed, Scarring Localized Edema ,Scarring -Moisture (Michelle-wound Skin Appearance) Assessed No Abnormality Assessed -Color (Michelle-wound Skin Appearance) Assessed Rubor Assessed, Erythema -Temperature (Michelle-wound Skin No Abnormality No Abnormality No Abnormality Appearance) (Pt Warm) (Pt Warm) (Pt Warm) -Tenderness on Palpation (Michelle-wound Yes No No Skin Appearance) -Ulcer Cleansing Rinsed/ Wound Cleanser SOAPY WATER Irrigated with Saline -Foul Odor after Cleansing No No No -Anesthetic Used 4% Lidocaine 4% Lidocaine 4% Lidocaine Solution Solution Solution WC - Nurse 2 - General Ulcer CM Notes Start: 02/08/21 14:48 Freq: Status: Active Protocol: Activity Type Activity Date Activity User E-Sign Co-Sign Detail Recorded Client Recorded Date Recorded By Document 02/08/21 15:28 JF [id number] 02/08/21 15:30 JF Document 02/14/21 09:23 PL [id number] 02/14/21 09:24 PL Document 02/21/21 08:53 JF [id number] 02/21/21 08:55 JF 02/08/21 02/14/21 02/21/21 15:28 09:23 08:53 Wound Center Nurse 2 #2- R GROIN HYDRADENITIS-POST OP -Time 15:28 08:58 08:53 -Correct Patient Yes Yes Yes -Correct Side, Site, Position Yes Yes -Correct Procedure Yes Yes Yes -Procedure Performed Yes Yes -Type of Procedure Debridement Debridement Debridement -Clinical Debridement Subcutaneous Subcutaneous Subcutaneous -Tissue Removed Subcutaneous Subcutaneous Subcutaneous -Post Debridement (cm) - Length 7.4 8.3 7.5 -Post Debridement (cm) - Width 1.6 2.5 1.5 -Post Debridement (cm) - Depth 2.1 1.4 0.8 -Total Square (Post) (cm) 11.84 20.75 11.25 -Area of Debridement (cm) - Length 7.4 8.3 7.5 -Area of Debridement (cm) - Width 1.6 2.5 1.5 -Total Square (Area) (cm) 11.84 20.75 11.25 -Tunneling No No No -Undermining/Tunneling No No No -Circular Undermining No No No -Wound/Ulcer Outcome Not Healed Not Healed Not Healed -Ulcer Cleansing Rinsed/ Rinsed/ Rinsed/ Irrigated with Irrigated with Irrigated with Saline Saline Saline -Foul Odor after Cleansing No No No -Bioengineered Tissue No No No -Bleeding Controlled with Pressure Pressure Pressure -Offloading No No -Treatment Response Procedure Procedure Procedure Tolerated Well Tolerated Well Tolerated Well -Debridement - Subq, 1st 20sq cm Yes Yes Yes -Debridement, SubQ, ea addt'l 20sq cm 1 or part thereof Pain Scale: 0-10 Numeric Is Patient Pain Free? Yes Yes Yes - Nurse 3 - General Ulcer D/C NN Start: 02/08/21 14:48 Freq: Status: Active Protocol: Activity Type Activity Date Activity User E-Sign Co-Sign Detail Recorded Client Recorded Date Recorded By Document 02/08/21 15:31 [id number] 02/08/21 15:31 Document 02/14/21 09:08 [facility] [id number] 02/14/21 09:09 [facility] Document 02/21/21 09:04 KR [id number] 02/21/21 09:05 KR 02/08/21 02/14/21 02/21/21 15:31 09:08 09:04 Wound Care Nurse 3 #2- R GROIN HYDRADENITIS-POST OP -Ulcer Cleansing Rinsed/ Rinsed/ Rinsed/ Irrigated with Irrigated with Irrigated with Saline Saline Saline -Foul Odor after Cleansing No No -Primary Dressing Applied Aquacel AG 4x4 Aquacel AG 4x4 Silvercel -Primary Dressing Covered/Secured with Dry Gauze, Dry Gauze, Dry Gauze, Secured with Secured with Secured with Tape Tape,Other Tape -Other Covering abd -Aquacel AG 4x4 1 1 -Silvercel 1 Treatment Response Procedure Tolerated Well Pain Scale: 0-10 Numeric Is Patient Pain Free? Yes Yes Yes - Visit Discharge Discharge Condition Stable Stable Stable Ambulatory Status Ambulatory Ambulatory Ambulatory Transportation Private Auto Private Auto Private Auto Medication Reconcilliation completed & Yes provided to patient/care provider Clinical Summary of Care Provided Yes Wound debrided: Vulva wound Laterality: Right Type of Debridement: Excisional debridement Anesthesia Used: 5% Lidocaine Gel Depth: Down to and including healthy tissue and in the subcutaneous layer Percentage of wound debrided: 100 Instrument Used: 5mm curette Tissue Removed: Subcutaneous tissue and slough Severity: Fat Layer Exposed Amount of bleeding with debridement: Mild Bleeding Controlled with: Pressure Patient tolerated procedure: Patient tolerated procedure well Assessment/Plan Assessment/Plan (1) Open wound of vulva: CODE(S): S31.40XA - Unspecified open wound of vagina and vulva, initial encounter QUALIFIERS: Encounter type: initial encounter Qualified Code(s): S31.40XA - Unspecified open wound of vagina and vulva, initial encounter (2) Vulvar abscess: CODE(S): N76.4 - Abscess of vulva (3) Other acute postprocedural pain: CODE(S): G89.18 - Other acute postprocedural pain (4) Hydradenitis: CODE(S): L73.2 - Hidradenitis suppurativa (5) Hemoglobin A1c greater than 9.0%: CODE(S): R73.09 - Other abnormal glucose (6) Diabetes mellitus type 2, uncontrolled: CODE(S): E11.65 - Type 2 diabetes mellitus with hyperglycemia QUALIFIERS: Diabetes mellitus complication status: without complication Diabetes mellitus medical terminologist insulin use: with fdc use Qualified Code(s): E11.65 - Type 2 diabetes mellitus with hyperglycemia; Z79.4 - FDC (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 of insulin PLAN: Wound care - Will start Silver alginate to the wound daily, covered by gauze. Completed Doxycycline. Consulted Dr. Rosanne Matthews, endocrinology for assistance of getting blood sugars under better control. HgA1c 13.1 on 01/20/21. She has an appointment in August. She states that her PCP is managing her blood sugars until then and she is trying to watch her diet. For her yeast infection, she was placed on Diflucan and Nystatin powder twice daily. With how warm the temperatures are and her obvious perspiration in these areas, she is seeing improvement with the medicated powder to help with the yeast infection. Encouraged patient to stop smoking as it may have deleterious effects on wound healing. Follow up one week.
[2021-02-28 09:14] VITALS: BP 119/75; PULSE 99; RESP 18; TEMP 36.3; BMI 34.9
--- NOTE | 2021-02-28 14:46 | PN.PCM_ITS ---
History of Present Illness Date of Service: 02/28/21 Chief Complaint: Open surgical wound of right vulva and labia. History of Wound: Surgery 01/20/21 - Surgical preparation right vulva involving genitocrural crease extending to labia with incision and drainage hidradenitis diabetic ulcer abscess and excisional debridement with partial vulvectomy including deep subcutaneous tissue (40 cm2). She went to the ED on 01/18 and had I&D of right vulval abscess and started on Bactrim. Symptoms continued to get worse, she went to Dr. Sanabria's office with increased pain and redness, she was direct admitted for IV antibiotics of Vancomycin, Ceftriaxone, and Flagyl. She was discharged on 01/21/21. Operative culture positive for Lactobacillus sp. She was discharged on Doxycycline. Wound care is Dakin's solution 0.25% moistened gauze daily and as needed. She is diabetic with HgA1c was 13.1 on 01/20/21. She has been having issues with a yeast rash under her pannus and in her groin bilaterally that she was placed on Diflucan daily and had a small amount of improvement. Nystatin powder was added and she is having an improvement in her symptoms. Today she denies fever and states that her appetite is ok. Progress of Wound: Improved Objective Data Objective Data Vital Signs: Vital Signs Temp Pulse Resp BP 97.4 F L 99 18 119/75 02/28/21 09:14 02/28/21 09:14 02/28/21 09:14 02/28/21 09:14 Oxygen Delivery Method Room Air Weight: 230 lb Body Mass Index (BMI) 34.9 Charges/Coding Procedures Integumentary 111xxx-113xx: 94372 Global Visit Physical Exam Const alert and oriented x3 General Appearance: cooperative HEENT normocephalic Eyes PERRL Lymph Lymphatic: no lymphedema noted Resp normal respiratory effort Cardio regular rate GI non-tender Palpation: soft Extremity normal capillary refill and no calf tenderness Skin Wound Narrative: Right vulva ulcer is beefy pink, improved in size and depth. She has discomfort with palpation on the posterior aspect of the ulcer. Neuro CN's II-XII intact bilaterally Psych Appearance: grossly normal Debridement Note Debridement Note Post-Debridement Measurements and Additional Note: Post-Debridement Measurements/Treatment WC - Nurse 1 - General Ulcer Assessment Start: 02/08/21 14:48 Freq: Status: Active Protocol: WC.LOWEXT Activity Type Activity Date Activity User E-Sign Co-Sign Detail Recorded Client Recorded Date Recorded By Document 02/08/21 14:49 [facility] [id number] 02/08/21 14:54 [facility] Document 02/14/21 08:34 DL [id number] 02/14/21 08:38 DL Document 02/21/21 08:32 BMF [id number] 02/21/21 08:38 BM Document 02/28/21 09:14 DL [id number] 02/28/21 09:20 DL 02/08/21 02/14/21 02/21/21 14:49 08:34 08:32 WC - Today's Visit Information Type of service Follow-up Visit Follow-up Visit Follow-up Visit (Physician/WAGON PERSON (Physician/WAGON PERSON (Physician/WAGON PERSON ) ) ) Arrival Mode Ambulatory Ambulatory Ambulatory Transfer Assistance None None None Patient Identification Verified (Name & Yes Yes Yes ) Patient Requires Transmission-Based No No No Precautions Height and Weight Body Mass Index (BMI) 34.9 34.9 34.9 BMI Classification Obese Obese Obese Temperature (97.8 F-99.1 F) 96.9 F L 98.7 F Temperature Source Temporal Temporal Vital Signs Pulse Rate (60-100) 119 H 99 97 Pulse Location Monitor Monitor Monitor Respiratory Rate (12-18) 16 18 16 Respiratory rate source Observation Observation Oxygen Delivery Method Room Air Room Air Blood Pressure (90/60-120/80) 156/113 H 124/79 H 171/104 H Blood Pressure Mean (mm Hg) 127 94 126 Source Monitor Monitor Monitor Position Sitting Sitting Blood Pressure Location Left Arm Left Arm Comment PT DID NOT TAKE BP MEDS THIS AM, HAS APPT W/ PCP TOMORROW TO DISCUSS BP'S History Since Last Visit- (Skip if this is Patient's initial visit) Have you changed medications since your No No No last visit? Any new allergies or adverse reactions No No No Had a fall/change in ADL's that may No No No increase risk of falls Signs or symptoms of abuse and/or No No No neglect since last visit Have you been in the hospital since your No No No last visit? Has dressing in place as prescribed Yes Yes Yes Has compression in place as prescribed N/A N/A N/A Has offloadiing in place as prescribed N/A N/A N/A Experienced any changes in pain level or No No No management Left Footwear Regular Shoe Regular Shoe Right Footwear Regular Shoe Regular Shoe Pain Scale: 0-10 Numeric Is Patient Pain Free? Yes 02/28/21 09:14 WC - Today's Visit Information Type of service Follow-up Visit (Physician/WAGON PERSON ) Arrival Mode Ambulatory Transfer Assistance None Patient Identification Verified (Name & ) Patient Requires Transmission-Based No Precautions Height and Weight Body Mass Index (BMI) 34.9 BMI Classification Obese Temperature (97.8 F-99.1 F) 97.4 F L Temperature Source Temporal Vital Signs Pulse Rate (60-100) 99 Pulse Location Monitor Respiratory Rate (12-18) 18 Respiratory rate source Observation Oxygen Delivery Method Blood Pressure (90/60-120/80) 119/75 Blood Pressure Mean (mm Hg) 89 Source Monitor Position Blood Pressure Location Comment History Since Last Visit- (Skip if this is Patient's initial visit) Have you changed medications since your No last visit? Any new allergies or adverse reactions No Had a fall/change in ADL's that may No increase risk of falls Signs or symptoms of abuse and/or No neglect since last visit Have you been in the hospital since your No last visit? Has dressing in place as prescribed Yes Has compression in place as prescribed N/A Has offloadiing in place as prescribed N/A Experienced any changes in pain level or No management Left Footwear Right Footwear Pain Scale: 0-10 Numeric Is Patient Pain Free? Yes - Nurse 1 - General Ulcer Measurement Start: 02/08/21 14:48 Freq: Status: Active Protocol: Activity Type Activity Date Activity User E-Sign Co-Sign Detail Recorded Client Recorded Date Recorded By Document 02/08/21 14:49 BMF [id number] 02/08/21 14:54 BMF Document 02/14/21 08:34 DL [id number] 02/14/21 08:38 DL Document 02/21/21 08:32 BMF [id number] 02/21/21 08:38 BM Document 02/28/21 09:14 DL [id number] 02/28/21 09:20 DL 02/08/21 02/14/21 02/21/21 14:49 08:34 08:32 Wound Center Nurse 1 #2- R GROIN HYDRADENITIS-POST OP -Combined with other wound No No -Current Size (cm) - Length 7.5 7 7.2 -Current Size (cm) - Width 1.4 1 1 -Current Size (cm) - Depth 1.4 1 1.1 -Total Square Cm 10.50 7 7.2 -Photo Taken No No No -Epithelialization None Present Small 1-33% -Tunneling No No -Undermining/Tunneling No No -Circular Undermining No -Exudate Amt Large Small Medium -Exudate Type Serosanguineous Serosanguineous Serosanguineous -Wound Margin Distinct, Distinct, Distinct, Outline Outline Outline Attached Attached Attached -Granulation Amt Medium (34-66%) Large (67-100%) Large (67-100%) -Granulation Quality Pale,Red Red Red -Slough/Fibrin Yes Yes -Necrosis Amt Medium (34-66%) Small (1-33%) Small (1-33%) -Necrotic Tissue Type Adherent Slough Adherent Slough Adherent Slough -Structure Exposed N/A -Texture (Michelle-wound Skin Appearance) Assessed, Scarring Assessed, Scarring Localized Edema ,Scarring -Moisture (Michelle-wound Skin Appearance) Assessed No Abnormality Assessed -Color (Michelle-wound Skin Appearance) Assessed Rubor Assessed, Erythema -Temperature (Michelle-wound Skin No Abnormality No Abnormality No Abnormality Appearance) (Pt Warm) (Pt Warm) (Pt Warm) -Tenderness on Palpation (Michelle-wound Yes No No Skin Appearance) -Ulcer Cleansing Rinsed/ Wound Cleanser SOAPY WATER Irrigated with Saline -Foul Odor after Cleansing No No No -Anesthetic Used 4% Lidocaine 4% Lidocaine 4% Lidocaine Solution Solution Solution 02/28/21 09:14 Wound Center Nurse 1 #2- R GROIN HYDRADENITIS-POST OP -Combined with other wound -Current Size (cm) - Length 6.5 -Current Size (cm) - Width 1 -Current Size (cm) - Depth 0.7 -Total Square Cm 6.5 -Photo Taken No -Epithelialization -Tunneling -Undermining/Tunneling -Circular Undermining -Exudate Amt Small -Exudate Type Serosanguineous -Wound Margin Fibrotic Scar, Thickened Scar -Granulation Amt Large (67-100%) -Granulation Quality Red -Slough/Fibrin -Necrosis Amt Small (1-33%) -Necrotic Tissue Type Adherent Slough -Structure Exposed N/A -Texture (Michelle-wound Skin Appearance) Scarring -Moisture (Michelle-wound Skin Appearance) No Abnormality -Color (Michelle-wound Skin Appearance) Assessed -Temperature (Michelle-wound Skin No Abnormality Appearance) (Pt Warm) -Tenderness on Palpation (Michelle-wound No Skin Appearance) -Ulcer Cleansing Wound Cleanser -Foul Odor after Cleansing No -Anesthetic Used 4% Lidocaine Solution WC - Nurse 2 - General Ulcer CM Notes Start: 02/08/21 14:48 Freq: Status: Active Protocol: Activity Type Activity Date Activity User E-Sign Co-Sign Detail Recorded Client Recorded Date Recorded By Document 02/08/21 15:28 JF [id number] 02/08/21 15:30 JF Document 02/14/21 09:23 PL [id number] 02/14/21 09:24 PL Document 02/21/21 08:53 [id number] 02/21/21 08:55 Document 02/28/21 09:44 [id number] 02/28/21 09:47 02/08/21 02/14/21 02/21/21 15:28 09:23 08:53 Wound Center Nurse 2 #2- R GROIN HYDRADENITIS-POST OP -Time 15:28 08:58 08:53 -Correct Patient Yes Yes Yes -Correct Side, Site, Position Yes Yes -Correct Procedure Yes Yes Yes -Procedure Performed Yes Yes -Type of Procedure Debridement Debridement Debridement -Clinical Debridement Subcutaneous Subcutaneous Subcutaneous -Tissue Removed Subcutaneous Subcutaneous Subcutaneous -Post Debridement (cm) - Length 7.4 8.3 7.5 -Post Debridement (cm) - Width 1.6 2.5 1.5 -Post Debridement (cm) - Depth 2.1 1.4 0.8 -Total Square (Post) (cm) 11.84 20.75 11.25 -Area of Debridement (cm) - Length 7.4 8.3 7.5 -Area of Debridement (cm) - Width 1.6 2.5 1.5 -Total Square (Area) (cm) 11.84 20.75 11.25 -Tunneling No No No -Undermining/Tunneling No No No -Circular Undermining No No No -Wound/Ulcer Outcome Not Healed Not Healed Not Healed -Ulcer Cleansing Rinsed/ Rinsed/ Rinsed/ Irrigated with Irrigated with Irrigated with Saline Saline Saline -Foul Odor after Cleansing No No No -Bioengineered Tissue No No No -Bleeding Controlled with Pressure Pressure Pressure -Offloading No No -Treatment Response Procedure Procedure Procedure Tolerated Well Tolerated Well Tolerated Well -Debridement - Subq, 1st 20sq cm Yes Yes Yes -Debridement, SubQ, ea addt'l 20sq cm 1 or part thereof Pain Scale: 0-10 Numeric Is Patient Pain Free? Yes Yes Yes 02/28/21 09:44 Wound Center Nurse 2 #2- R GROIN HYDRADENITIS-POST OP -Time 09:45 -Correct Patient Yes -Correct Side, Site, Position Yes -Correct Procedure Yes -Procedure Performed Yes -Type of Procedure Debridement -Clinical Debridement Subcutaneous -Tissue Removed Subcutaneous -Post Debridement (cm) - Length 6.5 -Post Debridement (cm) - Width 1 -Post Debridement (cm) - Depth 0.8 -Total Square (Post) (cm) 6.5 -Area of Debridement (cm) - Length 6.5 -Area of Debridement (cm) - Width 1 -Total Square (Area) (cm) 6.5 -Tunneling No -Undermining/Tunneling No -Circular Undermining No -Wound/Ulcer Outcome Not Healed -Ulcer Cleansing Rinsed/ Irrigated with Saline -Foul Odor after Cleansing No -Bioengineered Tissue No -Bleeding Controlled with Pressure -Offloading No -Treatment Response Procedure Tolerated Well -Debridement - Subq, 1st 20sq cm Yes -Debridement, SubQ, ea addt'l 20sq cm or part thereof Pain Scale: 0-10 Numeric Is Patient Pain Free? Yes WC - Nurse 3 - General Ulcer D/C NN Start: 02/08/21 14:48 Freq: Status: Active Protocol: Activity Type Activity Date Activity User E-Sign Co-Sign Detail Recorded Client Recorded Date Recorded By Document 02/08/21 15:31 [id number] 02/08/21 15:31 Document 02/14/21 09:08 BMF [id number] 02/14/21 09:09 BMF Document 02/21/21 09:04 KR [id number] 02/21/21 09:05 KR Document 02/28/21 10:00 AK [id number] 02/28/21 10:00 AK 02/08/21 02/14/21 02/21/21 15:31 09:08 09:04 Wound Care Nurse 3 #2- R GROIN HYDRADENITIS-POST OP -Ulcer Cleansing Rinsed/ Rinsed/ Rinsed/ Irrigated with Irrigated with Irrigated with Saline Saline Saline -Foul Odor after Cleansing No No -Primary Dressing Applied Aquacel AG 4x4 Aquacel AG 4x4 Silvercel -Primary Dressing Covered/Secured with Dry Gauze, Dry Gauze, Dry Gauze, Secured with Secured with Secured with Tape Tape,Other Tape -Other Covering abd -Aquacel AG 4x4 1 1 -Silvercel 1 Treatment Response Procedure Tolerated Well Pain Scale: 0-10 Numeric Is Patient Pain Free? Yes Yes Yes WC - Visit Discharge Discharge Condition Stable Stable Stable Ambulatory Status Ambulatory Ambulatory Ambulatory Transportation Private Auto Private Auto Private Auto Medication Reconcilliation completed & Yes provided to patient/care provider Clinical Summary of Care Provided Yes 02/28/21 10:00 Wound Care Nurse 3 #2- R GROIN HYDRADENITIS-POST OP -Ulcer Cleansing Rinsed/ Irrigated with Saline -Foul Odor after Cleansing No -Primary Dressing Applied Aquacel AG 4x4 -Primary Dressing Covered/Secured with -Other Covering -Aquacel AG 4x4 1 -Silvercel Treatment Response Pain Scale: 0-10 Numeric Is Patient Pain Free? WC - Visit Discharge Discharge Condition Stable Ambulatory Status Ambulatory Transportation Private Auto Medication Reconcilliation completed & provided to patient/care provider Clinical Summary of Care Provided Wound debrided: Vulva ulcer Laterality: Right Type of Debridement: Excisional debridement Anesthesia Used: 5% Lidocaine Gel Depth: Down to and including healthy tissue and in the subcutaneous layer Instrument Used: 5mm curette Tissue Removed: Subcutaneous tissue and slough Severity: Fat Layer Exposed Bleeding Controlled with: Pressure Patient tolerated procedure: Patient tolerated procedure well Assessment/Plan Assessment/Plan (1) Vulvar ulcer: CODE(S): N76.6 - Ulceration of vulva (2) Hydradenitis: CODE(S): L73.2 - Hidradenitis suppurativa (3) Other acute postprocedural pain: CODE(S): G89.18 - Other acute postprocedural pain (4) Diabetes mellitus type 2, uncontrolled: CODE(S): E11.65 - Type 2 diabetes mellitus with hyperglycemia QUALIFIERS: Diabetes mellitus complication status: without complication 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 Completed Doxycycline. Consulted Dr. Rosanne Matthews, endocrinology for assistance of getting blood sugars under better control. HgA1c 13.1 on 01/20/21. She has an appointment in August. She states that her PCP is managing her blood sugars until then and she is trying to watch her diet. For her yeast infection, she was placed on Diflucan and Nystatin powder twice daily. With how warm the temperatures are and her obvious perspiration in these areas, she is seeing improvement with the medicated powder to help with the yeast infection. Will order CMP to evaluate her labs due to her being on Diflucan. Encourage increase protein intake to help with wound healing. Encouraged low- carb diet to help with blood sugars. Encouraged patient to stop smoking as it may have deleterious effects on wound healing. Follow up one week.
== END 2021-03-05 23:59 ==
LOC: WC 09:15
PROVIDERS: PCP Internal Medicine; Referring Provider Surgery; Visit Provider Nurse Practitioner Family
DX: T81.89XA Other complications of procedures, not elsewhere classified, initial encounter (principal); S31.40XA Unspecified open wound of vagina and vulva, initial encounter; G89.18 Other acute postprocedural pain; Y83.8 Other surgical procedures as the cause of abnormal reaction of the patient, or of later complication, without mention of misadventure at the time of the procedure; Y92.9 Unspecified place or not applicable; L73.2 Hidradenitis suppurativa; N76.6 Ulceration of vulva; N76.4 Abscess of vulva; B37.2 Candidiasis of skin and nail; E11.65 Type 2 diabetes mellitus with hyperglycemia; E66.01 Morbid (severe) obesity due to excess calories; Z68.34 Body mass index [BMI] 34.0-34.9, adult; F17.200 Nicotine dependence, unspecified, uncomplicated; Z79.4 Long term (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 of insulin; Z79.899 Other long term (current) drug therapy
CPT/HCPCS: 11042; 11045

== ENCOUNTER 2021-04-04 10:15 | Outpatient (RCR) | payer MEDICARE, MEDICAID, SELFPAY ==
[2021-03-06 00:34] VITALS: BP 119/75; PULSE 99; RESP 18; TEMP 36.3
[2021-03-07 09:09] VITALS: BP 150/99; PULSE 103; TEMP 36.1; BMI 34.9
--- NOTE | 2021-03-07 09:59 | PN.PCM_ITS ---
History of Present Illness Date of Service: 03/07/21 Chief Complaint: Open surgical wound of right vulva and labia. History of Wound: Surgery 01/20/21 - Surgical preparation right vulva involving genitocrural crease extending to labia with incision and drainage hidradenitis diabetic ulcer abscess and excisional debridement with partial vulvectomy including deep subcutaneous tissue (40 cm2). She went to the ED on 01/18 and had I&D of right vulval abscess and started on Bactrim. Symptoms continued to get worse, she went to Dr. Sanabria's office with increased pain and redness, she was direct admitted for IV antibiotics of Vancomycin, Ceftriaxone, and Flagyl. She was discharged on 01/21/21. Operative culture positive for Lactobacillus sp. She was discharged on Doxycycline. Wound care is Dakin's solution 0.25% moistened gauze daily and as needed. She is diabetic with HgA1c was 13.1 on 01/20/21. She has been having issues with a yeast rash under her pannus and in her groin bilaterally that she was placed on Diflucan daily and had a small amount of improvement. Nystatin powder was added and she is having an improvement in her symptoms. Today she denies fever and states that her appetite is ok. Progress of Wound: Improved. Objective Data Objective Data Vital Signs: Vital Signs Temp Pulse Resp BP 96.9 F L 103 H 18 150/99 H 03/07/21 09:09 03/07/21 09:09 03/06/21 00:34 03/07/21 09:09 Weight: 230 lb Body Mass Index (BMI) 34.9 Charges/Coding Procedures Integumentary 111xxx-113xx: 29630 Global Visit Physical Exam Const alert and oriented x3 General Appearance: cooperative HEENT normocephalic Head and Scalp: atraumatic Eyes PERRL Lymph Lymphatic: no lymphedema noted Resp normal respiratory effort Cardio regular rate GI non-tender Palpation: soft Extremity normal capillary refill and no calf tenderness Skin Wound Narrative: Right vulva ulcer is beefy pink, smaller in size. Neuro CN's II-XII intact bilaterally Psych Appearance: grossly normal Thought Process: normal thought process Debridement Note Debridement Note Post-Debridement Measurements and Additional Note: Post-Debridement Measurements/Treatment WC - Nurse 1 - General Ulcer Assessment Start: 03/07/21 09:09 Freq: Status: Active Protocol: [email or web address] Activity Type Activity Date Activity User E-Sign Co-Sign Detail Recorded Client Recorded Date Recorded By Document 03/07/21 09:09 BROOK [id number] 03/07/21 09:16 BROOK 03/07/21 09:09 - Today's Visit Information Type of service Follow-up Visit (Physician/COMPLETIONS ENGINEER ) Arrival Mode Ambulatory Patient Identification Verified (Name & Yes ) Patient Requires Transmission-Based No Precautions Finger Stick Blood Sugar(mg/dl) (if 132 indicated): Blood Sugar Stated by Patient Height and Weight Body Mass Index (BMI) 34.9 BMI Classification Obese Vital Signs Temperature (97.8 F-99.1 F) 96.9 F L Temperature Source Temporal Pulse Rate (60-100) 103 H Pulse Location Monitor Blood Pressure (90/60-120/80) 150/99 H Blood Pressure Mean (mm Hg) 116 Source Monitor History Since Last Visit- (Skip if this is Patient's initial visit) Have you changed medications since your No last visit? Any new allergies or adverse reactions No Had a fall/change in ADL's that may No increase risk of falls Signs or symptoms of abuse and/or No neglect since last visit Have you been in the hospital since your No last visit? Has dressing in place as prescribed Yes Has compression in place as prescribed N/A Has offloadiing in place as prescribed N/A Experienced any changes in pain level or Yes management Left Footwear Regular Shoe Right Footwear Regular Shoe - Nurse 1 - General Ulcer Measurement Start: 03/07/21 09:09 Freq: Status: Active Protocol: Activity Type Activity Date Activity User E-Sign Co-Sign Detail Recorded Client Recorded Date Recorded By Document 03/07/21 09:09 BROOK [id number] 03/07/21 09:16 BROOK 03/07/21 09:09 Wound Center Nurse 1 #2- R GROIN HYDRADENITIS-POST OP -Combined with other wound No -Current Size (cm) - Length 6.3 -Current Size (cm) - Width 1 -Current Size (cm) - Depth 0.1 -Total Square Cm 6.3 -Photo Taken No -Epithelialization Small 1-33% -Undermining/Tunneling No -Circular Undermining No -Exudate Type Serosanguineous -Wound Margin Distinct, Outline Attached -Granulation Amt Large (67-100%) -Granulation Quality Red -Necrosis Amt None Present (0 %) -Texture (Michelle-wound Skin Appearance) Assessed, Scarring -Moisture (Michelle-wound Skin Appearance) No Abnormality, Assessed -Color (Michelle-wound Skin Appearance) No Abnormality, Assessed -Temperature (Michelle-wound Skin No Abnormality Appearance) (Pt Warm) -Tenderness on Palpation (Michelle-wound No Skin Appearance) -Ulcer Cleansing Rinsed/ Irrigated with Saline -Foul Odor after Cleansing No -Anesthetic Used 5% Lidocaine Gel WC - Nurse 2 - General Ulcer CM Notes Start: 03/07/21 09:09 Freq: Status: Active Protocol: Activity Type Activity Date Activity User E-Sign Co-Sign Detail Recorded Client Recorded Date Recorded By Document 03/07/21 09:39 BRYANT [id number] 03/07/21 09:42 BRYANT 03/07/21 09:39 Wound Center Nurse 2 -Time 09:40 -Correct Patient Yes -Correct Side, Site, Position Yes -Correct Procedure Yes -Procedure Performed Yes -Type of Procedure Incision & Drainage -Clinical Debridement Subcutaneous -Tissue Removed Subcutaneous -Post Debridement (cm) - Length 6 -Post Debridement (cm) - Width 1.5 -Post Debridement (cm) - Depth 0.8 -Total Square (Post) (cm) 9.0 -Area of Debridement (cm) - Length 6 -Area of Debridement (cm) - Width 1.5 -Total Square (Area) (cm) 9.0 -Tunneling No -Undermining/Tunneling No -Circular Undermining No -Wound/Ulcer Outcome Not Healed -Ulcer Cleansing Rinsed/ Irrigated with Saline -Foul Odor after Cleansing No -Bioengineered Tissue No -Bleeding Controlled with Pressure -Offloading No -Treatment Response Procedure Tolerated Well -Debridement - Subq, 1st 20sq cm Yes Pain Scale: 0-10 Numeric Is Patient Pain Free? Yes Wound debrided: Vulva ulcer Laterality: Right Type of Debridement: Excisional debridement Anesthesia Used: 5% Lidocaine Gel Depth: Down to and including healthy tissue and in the subcutaneous layer Percentage of wound debrided: 100 Instrument Used: 5mm curette Tissue Removed: Subcutaneous tissue and slough Severity: Fat Layer Exposed Amount of bleeding with debridement: Mild Bleeding Controlled with: Pressure Patient tolerated procedure: Patient tolerated procedure well Assessment/Plan Assessment/Plan (1) Vulvar ulcer: CODE(S): N76.6 - Ulceration of vulva (2) Hydradenitis: CODE(S): L73.2 - Hidradenitis suppurativa (3) Diabetes mellitus type 2, uncontrolled: CODE(S): E11.65 - Type 2 diabetes mellitus with hyperglycemia QUALIFIERS: Diabetes mellitus complication status: without complication Diabetes mellitus longterm insulin use: with longterm use Qualified Code(s): E11.65 - Type 2 diabetes mellitus with hyperglycemia; Z79.4 - 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 Completed Doxycycline. Consulted Dr. Rosanne Matthews, endocrinology for assistance of getting blood sugars under better control. HgA1c 13.1 on 01/20/21. She has an appointment in August. She states that her PCP is managing her blood sugars until then and she is trying to watch her diet. For her yeast infection, she was placed on Diflucan and Nystatin powder twice daily. With how warm the temperatures are and her obvious perspiration in these areas, she is seeing improvement with the medicated powder to help with the yeast infection. Will order CMP to evaluate her labs due to her being on Diflucan. Instructed her to try to remember to get it drawn this week. Encourage increase protein intake to help with wound healing. Encouraged low- carb diet to help with blood sugars. Encouraged patient to stop smoking as it may have deleterious effects on wound healing. Follow up one week.
[2021-04-04 10:14] VITALS: BP 157/94; PULSE 102; RESP 20; TEMP 35.9; BMI 34.9
--- NOTE | 2021-04-04 12:43 | PN.PCM_ITS ---
History of Present Illness Date of Service: 04/04/21 Chief Complaint: Open surgical wound of right vulva and labia. History of Wound: Surgery 01/20/21 - Surgical preparation right vulva involving genitocrural crease extending to labia with incision and drainage hidradenitis diabetic ulcer abscess and excisional debridement with partial vulvectomy including deep subcutaneous tissue (40 cm2). She went to the ED on 01/18 and had I&D of right vulval abscess and started on Bactrim. Symptoms continued to get worse, she went to Dr. Sanabria's office with increased pain and redness, she was direct admitted for IV antibiotics of Vancomycin, Ceftriaxone, and Flagyl. She was discharged on 01/21/21. Operative culture positive for Lactobacillus sp. She was discharged on Doxycycline. Wound care is Dakin's solution 0.25% moistened gauze daily and as needed. She is diabetic with HgA1c was 13.1 on 01/20/21. She has been having issues with a yeast rash under her pannus and in her groin bilaterally that she was placed on Diflucan daily and had a small amount of improvement. Nystatin powder was added and she is having an improvement in her symptoms. Today she denies fever and states that her appetite is ok. Progress of Wound: She is healed today. Objective Data Objective Data Vital Signs: Vital Signs Temp Pulse Resp BP 96.7 F L 102 H 20 H 157/94 H 04/04/21 10:14 04/04/21 10:14 04/04/21 10:14 04/04/21 10:14 Weight: 230 lb Body Mass Index (BMI) 34.9 Charges/Coding Procedures Integumentary [id number]: [id number] Global Visit Physical Exam Const alert and oriented x3 General Appearance: cooperative HEENT normocephalic Eyes PERRL Lymph Lymphatic: no lymphedema noted Resp normal respiratory effort Cardio regular rate GI non-tender Palpation: soft Extremity normal capillary refill General Extremity: Negative for edema Skin Wound Narrative: Right vulva ulcer is healed. Neuro CN's II-XII intact bilaterally Psych Appearance: grossly normal Debridement Note Debridement Note No debridement was completed: No debridement was completed today Assessment/Plan Assessment/Plan (1) Vulvar abscess: CODE(S): N76.4 - Abscess of vulva (2) Vulvar ulcer: CODE(S): N76.6 - Ulceration of vulva (3) Smoker: CODE(S): F17.200 - Nicotine dependence, unspecified, uncomplicated (4) Hemoglobin A1c greater than 9.0%: CODE(S): R73.09 - Other abnormal glucose (5) Hydradenitis: CODE(S): L73.2 - Hidradenitis suppurativa PLAN: She is healed today. Encouraged her to massage the scarring 1-2 times daily with lotion to help soften the scarring. Consulted Dr. Rosanne Matthews, endocrinology for assistance of getting blood sugars u nder better control. HgA1c 13.1 on 01/20/21. She has an appointment in August. She states that her PCP is managing her blood sugars until then and she is trying to watch her diet. Encourage increase protein intake to help with wound healing. Encouraged low- carb diet to help with blood sugars. Encouraged patient to stop smoking as it may have deleterious effects on wound healing. Follow up as needed.
== END 2021-04-04 11:05 | disposition home or self-care (01) ==
LOC: WC 10:15
PROVIDERS: PCP Internal Medicine; Referring Provider Surgery; Visit Provider Nurse Practitioner Family
DX: L73.2 Hidradenitis suppurativa (principal); N76.4 Abscess of vulva; R21 Rash and other nonspecific skin eruption; E11.622 Type 2 diabetes mellitus with other skin ulcer; N76.6 Ulceration of vulva; E11.65 Type 2 diabetes mellitus with hyperglycemia; F17.200 Nicotine dependence, unspecified, uncomplicated; T81.89XA Other complications of procedures, not elsewhere classified, initial encounter; S31.40XA Unspecified open wound of vagina and vulva, initial encounter; Y83.8 Other surgical procedures as the cause of abnormal reaction of the patient, or of later complication, without mention of misadventure at the time of the procedure; E66.01 Morbid (severe) obesity due to excess calories; Z68.34 Body mass index [BMI] 34.0-34.9, adult
CPT/HCPCS: 11042; 99213; G0463

== ENCOUNTER 2021-08-09 09:39 | Outpatient (CLI) | payer MEDICARE, MEDICAID, SELFPAY ==
[2021-08-09 12:48] LABS: Vitamin D,25 Hydroxy 15.2 ng/mL
[2021-08-09 12:57] LABS: ALB/GLOB Ratio 0.8 RATIO (0.9-2.4); AST(SGOT) 15 U/L (15-37); Alanine Aminotransfer ALT/SGPT 28 U/L (13-56); Albumin, Serum 3.4 g/dL (3.2-5.0); Alkaline Phosphatase 67 U/L (45-117); Anion Gap 10 (5-15); BUN 18 mg/dL (7-18); BUN/Creat Ratio 24.6 RATIO (10-20); Calcium,Total 8.9 mg/dL (8.5-10.1); Chloride 100 mmol/L (98-107); Cholesterol 187 mg/dL (200); Creatinine, Serum 0.73 mg/dL (0.55-1.02); EST Glomerular Filtration Rate 94 mL/min (>60); Est Glom Filt Rate - Afr Amer 114 mL/min (>60); Globulin 4.4 g/dL (2.2-4.2); Glucose 366 mg/dL (74-106); High Density Lipoprotein 39 mg/dL; Potassium 4.3 mmol/L (3.5-5.1); Protein, Total 7.8 g/dL (6.4-8.2); Sodium Level 133 mmol/L (136-145); Thyroid Stim Hormone (TSH) 1.72 uIU/mL (0.358-3.74); Triglycerides 201 mg/dL; Very Low Density Lipoprotein 40 mg/dL (5-40)
[2021-08-09 13:21] LABS: Microalbumin,Random Urine 21.9 mg/L (NO RANGE EST.); Microalbumin:Creatinine Ratio 25.4 mg/g CRE (<30 mg/g CRE)
== END 2021-08-09 23:59 | disposition short-term general hospital (02) ==
LOC: BIMLAB 09:40
PROVIDERS: PCP Internal Medicine; Visit Provider Internal Medicine Endocrinology, Diabetes & Metabolism
DX: I10 Essential (primary) hypertension (principal); E11.65 Type 2 diabetes mellitus with hyperglycemia; Z79.4 Long term (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 of insulin; E55.9 Vitamin D deficiency, unspecified
CPT/HCPCS: 36415; 80053; 80061; 82043; 82306; 82570; 84443

== ENCOUNTER 2021-08-24 09:06 | Emergency (ER) | payer MEDICARE, MEDICAID, SELFPAY ==
[2021-08-24 09:08] VITALS: BP 187/109; PULSE 90; RESP 18; TEMP 35.8; O2SAT 100; BMI 35.0
[2021-08-24 09:12] VITALS: BP 162/122; PULSE 100; RESP 14; O2SAT 99
--- NOTE | 2021-08-24 09:39 | RAD_ITS ---
STUDY: X-RAY CHEST REASON FOR EXAM: Female, 36 years old. Chest pain TECHNIQUE: Single AP portable view of the chest. COMPARISON: Comparison is made with prior study dated 05/05/2016. FINDINGS: EKG electrodes are seen. The lungs are clear and expanded. There is no demonstrated pleural abnormality. Normal size heart. Normal mediastinum and woody. Normal visualized pulmonary arteries. Normal visualized aortic arch and descending thoracic aorta. Normal visualized thoracic spine. Normal visualized ribs, clavicles, and shoulders. There is no demonstrated abnormality of the visualized soft tissue structures of the upper abdomen. RAD/Chest 1 View (Portable) IMPRESSION: Normal x-ray examination of the chest. Electronically Signed: Ahmet Murcia MD at 10:28 EST , Service support ,
--- NOTE | 2021-08-24 09:39 | CT_ITS ---
STUDY: CT BRAIN WITHOUT CONTRAST REASON FOR EXAM: Female, 36 years old. Headache RADIATION DOSAGE (If Supplied By Facility): CTDIvol = ( 44.99 ) mGy, DLP = ( 745.49 ) mGycm TECHNIQUE: Transaxial CT imaging of the brain was performed without administration of intravenous contrast material. Individualized dose optimization techniques were used for this CT. COMPARISON: No relevant priors. FINDINGS: Normal soft tissue structures. Normal calvarium. Normal size ventricles and extra-axial spaces for the patient''s age. Normal white matter tracts of the cerebral hemispheres. Normal basal ganglia and thalami. Normal brainstem. Normal cerebellum. There is no intracranial hemorrhage. There are no findings of an acute ischemic infarction. Mucosal thickening along the lateral aspect of the right maxillary sinus. CT/Brain/Head without Contrast IMPRESSION: Normal unenhanced CT scan of the brain. Mucosal thickening along the lateral aspect of the right maxillary sinus. Electronically Signed: Ahmet Murcia MD at 10:28 EST , Service support ,
--- NOTE | 2021-08-24 09:39 | EKG12_ITS ---
Test Reason : HYPERTENSION/CP Blood Pressure : / mmHG Vent. Rate : 089 BPM Atrial Rate : 089 BPM P-R Int : 152 ms QRS Dur : 092 ms QT Int : 350 ms P-R-T Axes : 061 049 041 degrees QTc Int : 425 ms Normal sinus rhythm Normal ECG Confirmed by MARTINE WELLS, FRANCISCO ([id number]), commissioning editor YENI ANTHONY ([id number]) on 08/25/2021 9:00:54 AM Referred By: LEXY Confirmed By:FRANCISCO FARLEY MD
[2021-08-24 09:45] VITALS: O2SAT 99
[2021-08-24 09:49] LABS: Absolute Lymphocyte Count 2.49 X10^3/uL (0.83-4.51); Absolute Neutrophil Count 4.8 X10^3/uL (2.0-7.7); Basophil# 0.05 X10^3/uL; Basophil% 0.6 % (0-1); Eosinophil# 0.21 X10^3/uL; Eosinophils% 2.6 % (0-5); Hematocrit 43.7 % (37-47); Hemoglobin 14.8 g/dL (12.0-15.0); Lymphocyte # 2.49 X10^3/ul (0.83-4.51); Lymphocyte % 30.8 % (19-41); Mean Corp Hgb Conc 33.9 g/dL (32-36); Mean Corpuscular Hgb 28.3 pg (27.0-32.0); Mean Corpuscular Volume 83.6 fL (81-99); Mean Platelet Vol. 12.8 fl (6.2-12.0); Monocyte% 6.2 % (0-10); NRBC Flagged by Analyzer 0 % (0-5); Neutrophil % 59.3 % (47-70); Platelet Count 175 K/mm3 (150-450); RBC Distribution Width CV 13.1 % (11.6-14.6); RBC Distribution Width SD 39.8 fl (35.1-43.9); Red Blood Count 5.23 M/mm3 (4.2-5.4); White Blood Count 8.1 K/mm3 (4.4-11.0)
--- NOTE | 2021-08-24 09:57 | EDS_ITS ---
HPI History of Present Illness Chief Complaint: Hypertension Narrative Narrative: -year-old female with established elevated blood pressure presenting with headache, nausea vomiting, intermittent chest pain, tingling in her hands and feet. She states she has had blood pressures over the last 2 weeks that have been in the 170?180 systolic over 110?120 diastolic. Patient states she checks her blood pressure in the morning and it is usually high and she takes her lisinopril 20 mg. She states she does not check her blood pressure throughout the day. She states that sometimes she has to lay down and rest because she feels nauseous. Patient also has diabetes. She states that she has have difficulty getting it under control but her A1c has improved from 11-8.5. She states that she previously saw Dr. Murrell but is now trying to establish with Dr. Coats. She has an appointment on the of this month. Patient recently saw Dr. Matthews her head orthopedic team physician on 08/09/2021. She reports that Dr. Murrell apparently was not dosing her diabetic medication in the correct way and that is why she wants to switch to another primary care that this associated with Dr. Matthews. Patient currently takes Tresiba 40 units, Humalog 20 units with meals 12 units with snacks. Apparently she does not like to take too much Humalog because she feels ill when her blood sugar is less than 120. Patient is a smoker which complicates her hypertension. [facility] Medical History Anxiety and depression Bipolar disorder Diabetes Fibromyalgia Hemoglobin A1c greater than 9.0% History of necrotising fasciitis History of venous thromboembolism Hydradenitis Hypertension Hypertension Obesity Open wound of vulva Polycystic ovary Polyneuropathy due to type 2 diabetes mellitus Vulvar abscess Vulvar ulcer Home Medications lisinopril 20 mg PO DAILY 04/23/16 [History Last Taken 01/18/21] loratadine 10 mg PO DAILY 04/23/16 [History Last Taken 01/18/21] metformin 1,000 mg PO BIDCM 04/23/16 [History Last Taken 01/18/21] insulin degludec 40 unit SQ DAILY 09/30/16 [History Last Taken 01/18/21] insulin lispro unit SQ TID 12/05/18 [History Last Taken 01/18/21] gauze bandage [Kerlix] #12 ea 01/21/21 [Rx Last Taken Unknown] sodium hypochlorite [Dakin's Solution] 1 irrig TOPICAL DAILY #473 ml 01/21/21 [Rx Last Taken Unknown] albuterol sulfate 90 mcg/actuation aerosol inhaler 1 inh INHALATION PRN PRN 08/09/21 [History Last Taken Unknown] cholecalciferol (vitamin D3) 1,250 mcg (50,000 unit) capsule 1,250 mcg PO QWEEK #4 cap 08/09/21 [Rx Last Taken Unknown] dulaglutide 4.5 mg/0.5 mL subcutaneous pen injector 4.5 mg SUBCUT QWEEK #2 ml 08/09/21 [Rx Last Taken Unknown] gabapentin 300 mg capsule 1,200 mg PO QHS 08/09/21 [History Last Taken Unknown] lidocaine 5 % topical ointment 1 applic TOPICAL PRN PRN g 08/09/21 [History Last Taken Unknown] omeprazole 40 mg capsule,delayed release 40 mg PO DAILY 08/09/21 [History Last Taken Unknown] losartan 100 mg PO DAILY #30 tab 08/24/21 [Rx Last Taken Unknown] Allergy/AdvReac Type Severity Reaction Status Date / Time doxycycline Allergy Severe rash Verified 08/24/21 09:08 amoxicillin [Amoxicillin] Allergy Unknown Verified 08/24/21 09:08 asenapine maleate Allergy Unknown Verified 08/24/21 09:08 [From Saphris] cephalexin AdvReac Intermediate upset Verified 08/24/21 09:08 stomach Family History Mother Hypertension Brain aneurysm Father Diabetes Hypertension Grandmother Cancer liver throat kidney Diabetes Hypertension Heart disease CVA (cerebral vascular accident) Breast cancer Grandfather Kidney disease Hypertension CVA (cerebral vascular accident) Surgical History H/O lateral meniscus repair of left knee Social History Smoking Status: Current every day smoker tobacco type: cigarettes alcohol intake: never substance use type: does not use caffeine: Yes frequency: 5-6 times per week seatbelt use: always do you feel safe at home: Yes additional social history: Jonathan- Unemployed Patient is on disability ROS ROS ED Constitutional Constitutional ED: Denies chills, fever(s) or sweats Eyes Eyes: Denies blurry vision or change in vision ENT ENT ED: Denies ear pain or sore throat Cardiovascular Cardiovascular: Reports chest pain and palpitations; Denies racing heartbeat Respiratory/Chest Respiratory/Chest: Denies cough, dyspnea or sputum Gastrointestinal Gastrointestinal: Reports nausea and vomiting; Denies abdominal pain, constipation or diarrhea Genitourinary Genitourinary ED: Denies dysuria, hematuria or urinary frequency Musculoskeletal Musculoskeletal: Denies arthralgias, myalgias or neck pain Integumentary Denies abscess, Abrasions or rash Neurologic Neurologic: Reports headache(s); Denies paresthesias or weakness Psychiatric Psychiatric: Denies anxiety, depression, suicidal ideation or suicidal thoughts Endocrine Endocrinology: Denies polydipsia or polyuria EXAM Physical Exam Const Vital Signs: 08/24/21 09:08 08/24/21 09:12 08/24/21 09:45 Temperature 96.5 F L Temperature Source Temporal Pulse Rate 90 100 Respiratory Rate 18 14 Respiratory Effort Normal Non-Labored Respiratory Pattern Normal Blood Pressure 187/109 H 162/122 H Blood Pressure Mean 135 135 Pulse Ox 100 99 99 Oxygen Delivery Method Room Air Room Air Room Air 08/24/21 10:26 Temperature Temperature Source Pulse Rate 83 Respiratory Rate 14 Respiratory Effort Respiratory Pattern Blood Pressure 158/96 H Blood Pressure Mean 116 Pulse Ox 97 Oxygen Delivery Method Room Air Positive well nourished, obese, oriented x3 and no apparent distress General Appearance ED: well ket Nutritional Appearance: obese HEENT Reports normocephalic and head/scalp atraumatic Eyes PERRL and EOMs intact bilaterally Neck full ROM and nuchal rigidity General: normal visual inspection and trachea midline Chest Wall inspection of chest normal and palpation of chest normal Resp normal respiratory effort and normal air movement Effort and Inspection: able to speak in complete sentences Cardio regular rate and regular rhythm GI Palpation: soft; Negative for tender, guarding or rigid Extremity normal to inspection, full ROM and normal capillary refill Neuro oriented x3, CN's II-XII intact bilaterally, moves all extremities, no focal motor deficits and no sensory deficits noted Psych mental status grossly normal and thought process normal Appearance: grossly normal and appropriate MDM MDM MDM Narrative Medical decision making narrative: Patient presenting with headache, nausea, vomiting, chest pain and tingling in her hands and feet. Patient's exam is normal. She is hypertensive on arrival at 187/109 however over time her lisinopril appears to have started working and her blood pressure is now 158/96. I did not try to get it lower acutely. CBC and BMP are unremarkable with exception of a glucose of 303 without an anion gap. D-dimer is negative. Urinalysis is negative. High-sensitivity troponin is 5. CT of the brain is negative. Chest x-ray on my interpretation shows no acute cardiopulmonary process and the radiologist does agree. I did discuss the case with Dr. Coats as he will be seeing her next. After discussion we will start her on losartan 100 mg p.o. daily. She is to keep a blood pressure diary and check her blood pressures 3 times a day. Patient will follow-up with Dr. Coats on the . If she has any new or worsening symptoms she is return to the ER. Impression: 1. Hypertension?established [id number] 2. Chest pain 3. Headache 4. Nausea vomiting Lab Data Attestation: I reviewed the patient's lab results. Labs: Laboratory Results - last 24 hr 08/24/21 08/24/21 08/24/21 09:30 09:30 09:30 WBC 8.1 RBC 5.23 Hgb 14.8 Hct 43.7 MCV 83.6 MCH 28.3 MCHC 33.9 RDW Std Deviation 39.8 RDW Coeff of Amada 13.1 Plt Count 175 MPV 12.8 H Immature Gran % (Auto) 0.500 Neut % (Auto) 59.3 Lymph % (Auto) 30.8 [place] % (Auto) 6.2 Eos % (Auto) 2.6 Baso % (Auto) 0.6 Absolute Neuts (auto) 4.8 Absolute Lymphs (auto) 2.49 Nucleated RBC % 0 D-Dimer Quant (PE/DVT) <= 0.27 Sodium 134 L Potassium 4.2 Chloride 101 Carbon Dioxide 28.0 Anion Gap 5 BUN 11 Creatinine 0.66 Estim Creat Clear Calc 116.59 Est GFR (MDRD) Af Amer 128 Est GFR (MDRD) Non-Af 106 BUN/Creatinine Ratio 16.6 Glucose 303 H Calcium 8.6 Troponin I High Sens 5 Urine Color Urine Clarity Urine pH Ur Specific Keyser Urine Protein Urine Glucose (UA) Urine Ketones Urine Occult Blood Urine Nitrite Urine Bilirubin Urine Urobilinogen Ur Leukocyte Esterase Urine RBC Urine WBC Ur Squamous Epith Cells Urine Bacteria Urine Mucus 08/24/21 09:55 WBC RBC Hgb Hct MCV MCH MCHC RDW Std Deviation RDW Coeff of Amada Plt Count MPV Immature Gran % (Auto) Neut % (Auto) Lymph % (Auto) [place] % (Auto) Eos % (Auto) Baso % (Auto) Absolute Neuts (auto) Absolute Lymphs (auto) Nucleated RBC % D-Dimer Quant (PE/DVT) Sodium Potassium Chloride Carbon Dioxide Anion Gap BUN Creatinine Estim Creat Clear Calc Est GFR (MDRD) Af Amer Est GFR (MDRD) Non-Af BUN/Creatinine Ratio Glucose Calcium Troponin I High Sens Urine Color Yellow Urine Clarity Clear Urine pH 7.0 Ur Specific Keyser 1.015 Urine Protein Negative Urine Glucose (UA) 1000 H Urine Ketones Negative Urine Occult Blood 10 H Urine Nitrite Negative Urine Bilirubin Negative Urine Urobilinogen 1 H Ur Leukocyte Esterase Negative Urine RBC 0 SEEN Urine WBC 0 SEEN Ur Squamous Epith Cells 0-5 SEEN Urine Bacteria 0 SEEN Urine Mucus 0 SEEN Radiography Diagnostic Testing: Clinical Impression(s) from Imaging Studies Brain CT 08/24/21 09:39 IMPRESSION: Normal unenhanced CT scan of the brain. Mucosal thickening along the lateral aspect of the right maxillary sinus. Electronically Signed: Ahmet Murcia MD at 10:28 EST , Service support , Chest X-Ray 08/24/21 09:39 IMPRESSION: Normal x-ray examination of the chest. Electronically Signed: Ahmet Murcia MD at 10:28 EST , Service support , Discharge Plan Triage Chief Complaint: Hypertension ED Provider: Kolby Crocker Dx/Rx/DC Orders Instructions: ED Hypertension, Established Prescriptions: New losartan 100 mg tablet 100 mg PO DAILY Qty: 30 RF: 0 No Action gabapentin 300 mg capsule 1,200 mg PO QHS RF: 0 omeprazole 40 mg capsule,delayed release(DR/EC) 40 mg PO DAILY RF: 0 albuterol sulfate 90 mcg/actuation HFA aerosol inhaler 1 inh inhalation PRN PRN (Reason: Shortness Of Breath) RF: 0 lidocaine 5 % ointment 1 applic topical PRN PRN (Reason: Rash) RF: 0 Trulicity 4.5 mg/0.5 mL pen injector 4.5 mg subcut QWEEK Qty: 2 RF: 5 metformin 500 MG tablet 1,000 mg PO BIDCM RF: 0 lisinopril 20 MG tablet 20 mg PO DAILY RF: 0 loratadine 10 MG tablet 10 mg PO DAILY RF: 0 insulin degludec 100 UNIT/ML insulin pen 40 unit SQ DAILY RF: 0 insulin lispro 100 UNIT/ML cartridge SQ TID RF: 0 Dakin's Solution 0.25 % solution 1 irrig topical DAILY Qty: 473 RF: 4 (DME) Kerlix 4 1/2 X 147 bandage See Rx Instructions .ROUTE .MEDSUPPLY Qty: 12 RF: 3 cholecalciferol (vitamin D3) 1,250 mcg (50,000 unit) capsule 1,250 mcg PO QWEEK Qty: 4 RF: 5 Primary Care Provider: Fartun Murrell Referrals: Fartun Murrell MD [Primary Care Provider] - Disposition Disposition: Home, Self Care
[2021-08-24 10:02] LABS: Bacteria 0 SEEN /hpf (None Seen); Mucous, Urine 0 SEEN /hpf (<or=2+); Red Blood Cells-Urine 0 SEEN /hpf (0-5); White Blood Cells 0 SEEN /hpf (0-5)
[2021-08-24 10:05] LABS: Anion Gap 5 (5-15); BUN 11 mg/dL (7-18); BUN/Creat Ratio 16.6 RATIO (10-20); Calcium,Total 8.6 mg/dL (8.5-10.1); Chloride 101 mmol/L (98-107); Creatinine, Serum 0.66 mg/dL (0.55-1.02); EST Glomerular Filtration Rate 106 mL/min (>60); Est Glom Filt Rate - Afr Amer 128 mL/min (>60); Estimated Creatinine Clearance 116.59 ml/min; Glucose 303 mg/dL (74-106); Potassium 4.2 mmol/L (3.5-5.1); Sodium Level 134 mmol/L (136-145); Troponin-I HS 5 pg/mL (3.0-54.0)
[2021-08-24 10:06] LABS: Color, Urine Yellow (Yellow); Glucose, Dipstick 1000 mg/dl (Normal); Ketone-Dipstick Negative (Negative); Leukocyte Esterase-Dipstick Negative /ul (Negative); Nitrite-Dipstick Negative (Negative); Occult Blood-Urine 10 /ul (Negative); Protein-Dipstick Negative (Negative); Specific Gravity, Urine 1.015 (1.002-1.030); Urine Bilirubin Dipstick Negative (Negative); Urine Clarity Clear (Clear); Urine Urobilinogen 1 mg/dl (Normal)
[2021-08-24 10:11] LABS: Squamous Epithelial Cells - UA 0-5 SEEN /hpf (5-10)
[2021-08-24 10:14] LABS: D-Dimer Quantitative (DVT/PE) <= 0.27 FEU/ug/m (0.27-0.49)
[2021-08-24] MEDS: Ondansetron 4 MG/2 ML Vial IV (10:24)
[2021-08-24 10:26] VITALS: BP 158/96; PULSE 83; RESP 14; O2SAT 97
[2021-08-24] MEDS: Ketorolac 15 MG/ML Vial IV (10:47)
[2021-08-24 12:28] LABS: AST(SGOT) 10 U/L (15-37); Alanine Aminotransfer ALT/SGPT 19 U/L (13-56); Albumin, Serum 2.9 g/dL (3.2-5.0); Alkaline Phosphatase 56 U/L (45-117); Bilirubin, Direct 0.15 mg/dL (0.00-0.30); Globulin 3.4 g/dL (2.2-4.2); Protein, Total 6.3 g/dL (6.4-8.2); Troponin-I HS 4 pg/mL (3.0-54.0)
[2021-08-24 12:31] VITALS: BP 149/93
== END 2021-08-24 12:36 | disposition home or self-care (01) ==
PROVIDERS: Emergency Provider Student in an Organized Health Care Education/Training Program; PCP Internal Medicine; Visit Provider Student in an Organized Health Care Education/Training Program
DX: I10 Essential (primary) hypertension (principal); F31.9 Bipolar disorder, unspecified; E11.42 Type 2 diabetes mellitus with diabetic polyneuropathy; Z79.4 Long term (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 of insulin; R11.2 Nausea with vomiting, unspecified; R07.9 Chest pain, unspecified; F17.210 Nicotine dependence, cigarettes, uncomplicated; R51.9 Headache, unspecified; F41.9 Anxiety disorder, unspecified; M79.7 Fibromyalgia; E66.9 Obesity, unspecified; E28.2 Polycystic ovarian syndrome; Z79.899 Other long term (current) drug therapy; Z68.35 Body mass index [BMI] 35.0-35.9, adult
CPT/HCPCS: 36415; 70450; 71045; 80048; 80076; 81001; 84484; 85025; 85379; 93005; 96374; 96375; 99285; A4216; J2405

== ENCOUNTER 2021-11-10 07:26 | Outpatient (RCR) | payer MEDICARE, MEDICAID, SELFPAY ==
--- NOTE | 2021-11-17 14:38 | HP.OTEVAL ---
Patient's Visit Information CLAYTON MCDANIEL is a 36 year old F, referred to Occupational Therapy by DOROTHY STEPHENSON, with a diagnosis of Carpal Tunnel syndrome. Date of Evaluation: 11/10/21 Occupational Therapist: Eliza Castellanos, SAMMI/Anneliese, CHT - Subjective Pt. is a 36 y/o female who presented with bilateral pain in hands. She has bilateral resting wrist splints on and has been wearing them all day, except for showering. She has been working at [employer] 7 months, and has developed pain in B hands. She reported she is trying to get off SSDI. Pt. reporting she has difficulty with controlling diabetes and that she has had necrotizing fasciitis January 20, 2021, and in 2017. - ADLs Comments: no difficulty Comments: does not have difficulty Comments: no difficulty Bathing: Wash hair Comments: at times spouse assists Grooming: Comb hair Kitchen: Open jars, Open bottle caps, Lift gallon of milk Miscellaneous: Use cell phone Comments: Pt. resides in an upstairs apartment, 14 stairs 1 rail. Spouse assists with carrying groceries. Pt. declined having much difficulty with ADL's. - Pain Bilateral Hand 3 - Objective Pt. wearing wrist splints for a month. She has been wearing them throughout the day and night. - ROM Shoulder: B WFL Elbow: B WFL Wrist: L flex 65, 35*ext, R70* flex, ext 45* MP: L 35* flex R 32* MP: L 1-35, 2-55, 3-68, 4-85* R 1-65, 2-82,3-75,4-75* ROM Comments: Can complete a composite fist. - Strength Shoulder: BUE good strength Elbow: good strength Collection Systems Worker: L 30#, R 25# Lateral Pinch: L 10#, R 8# Tripod Pinch: L *3, R 9# Tip-to-Tip Pinch: L 5#, R 8# Strength Comments: pt. demo'd good strength through observation of pushing up from chair using B hands. - Sensation Thumb: B 4.08 Index: B 4.08 Middle: B 4.08 Ring: L 2.83 R 3.61 Little: R 3.61 Sensation Comments: Pt. reported she has diabetic neuropathy, diagnosed about 5 months ago. - Nine Hole Peg Right: 27.01 seconds Left: 28.68 seconds Comments: R & L-less than 0 percentile - Quick DASH-Disab of Arm,Shoulder& Hand Quick DASH Score: 40.0000 - Goals Goal:: Pt. to increase hand card doffer strength by 10 # (from L 30#, R 25# to L 40#, R 35#) to move grocery items with ease by dc. Goal:: Pt. to verbalize 3 ergonomic changes that she has been completing while at work by dc. Pt. to demonstrate HEP without vc's by dc. Goal:: Pt. to tolerate working 8 hours without donning resting wrist support splint and wearing neoprene support on R hand by dc. - Rehabilitation General Assessment: Pt. has been diagnosed with mild carpal tunnel syndrome on L hand and has pain in R hand also. Right hand presents as tendonitis. Pain in both hands has made it difficult for the pt. to complete an 8 hour work day or she is in pain for the rest of the day. Pt. would benefit from participating in skilled OT services for hand strengthening, work conditioning, body mechanics, and ergonomics. Pt. verbalized understanding and agreeable to POC. Therapy session was directly supervised and doc. reviewed and approved by Eliza Castellanos OTR/Anneliese,CHT. Rehabilitation Potential: Fair - Anticipated Interventions A/AAROM/PROM, Strengthening, Orthoses, Joint Protection/Energy Conservation, Ergonomic Education, Education re assistive Equipment, Education re Diagnosis, Home Program Other Interventions: No massage, No orthotics per insurance coverage. - Visit Plan Frequency: 1-2x /Week Duration: 6 Weeks TEXT: Thank you for the opportunity to evaluate your patient. For Medicare and Medicare HMO plans, please review the plan of care and approve it. It will need to be FAXED BACK to us at [phone] for Medicare purposes. Please let me know if there are questions or concerns regarding this plan of care. Physician Signature: Date:
--- NOTE | 2021-11-24 08:09 | HP.OT.NRP ---
CLAYTON MCDANIEL was seen in my office for initial evaluation on 11/10/21. The following Plan of Care was established for this patient: Initial Frequency: 1-2x /Week Initial Duration: 6 Weeks Anticipated Interventions: A/AAROM/PROM, Strengthening, Orthoses, Joint Protection/Energy Conservation, Ergonomic Education, Education re assistive Equipment, Education re Diagnosis, Home Program Other Interventions: No massage, No orthotics per insurance coverage. This patient was last seen in our office for her evaluation on 11/10/21 . Pertinent comments regarding their Occupational therapy will appear below: Pt no showed her 2nd follow up apt. and called and cancelled her 3rd visit and all scheduled apts. due to her work schedule. Pt is now d/c at this time per pt. request. At this point I will be discontinuing this patient from occupational therapy. I would be happy to see this patient again in the future if found appropriate by the physician. Thank you! Eliza Castellanos, OTR/L, CHT
== END 2021-11-10 19:00 | disposition home or self-care (01) ==
LOC: OT 07:26
PROVIDERS: PCP Internal Medicine
DX: G56.03 Carpal tunnel syndrome, bilateral upper limbs (principal)
CPT/HCPCS: 97166; 97530

== ENCOUNTER 2021-12-18 23:17 | Emergency (ER) | payer MEDICARE, MEDICAID, SELFPAY ==
[2021-12-18 23:18] VITALS: BP 154/60; PULSE 110; RESP 16; TEMP 36.3; O2SAT 99; BMI 31.7
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
[2021-12-19 00:38] VITALS: RESP 16
[2021-12-19] MEDS: LORazepam 1 MG Tablet PO (00:38)
[2021-12-19] MEDS: hydrOXYzine PAM 25 MG Capsule PO (00:38)
== END 2021-12-19 00:40 | disposition home or self-care (01) ==
PROVIDERS: Emergency Provider Emergency Medicine; PCP Internal Medicine; Visit Provider Emergency Medicine
DX: F41.0 Panic disorder [episodic paroxysmal anxiety] (principal); F31.9 Bipolar disorder, unspecified; E11.42 Type 2 diabetes mellitus with diabetic polyneuropathy; Z79.4 Long term (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 of insulin; I10 Essential (primary) hypertension; M79.7 Fibromyalgia; E66.9 Obesity, unspecified; E28.2 Polycystic ovarian syndrome; Z79.899 Other long term (current) drug therapy; F17.290 Nicotine dependence, other tobacco product, uncomplicated; Z68.31 Body mass index [BMI] 31.0-31.9, adult
CPT/HCPCS: 99283

== ENCOUNTER 2022-03-01 03:36 | Emergency (ER) | payer MEDICARE, MEDICAID, SELFPAY ==
[2022-03-01 03:37] VITALS: BP 182/99; PULSE 89; RESP 16; TEMP 35.8; O2SAT 99; BMI 34.0
--- NOTE | 2022-03-01 04:06 | RAD_ITS ---
EXAM: XR ABDOMEN, 2 VIEWS AND XR CHEST, 1 VIEW CLINICAL INDICATION: abd pain TECHNIQUE: Frontal view of the chest, frontal view of the abdomen/pelvis and upright or decubitus view of the abdomen. This report was created using [employer] report generation technology. COMPARISON: None. FINDINGS: CHEST: LUNGS AND PLEURAL SPACES: Unremarkable. No consolidation or edema. No pneumothorax. No effusion. HEART: Unremarkable. Cardiac silhouette not enlarged. MEDIASTINUM: Central airways and mediastinal contour are unremarkable. ABDOMEN: INTRAPERITONEAL SPACE: No free air. GASTROINTESTINAL TRACT: Prominent stomach with large amount of ingested contents in the lumen. Moderate stool in the right colon. ORGANS: Unremarkable as visualized. No organomegaly. No abnormal calcifications. TUBES, LINES AND DEVICES: None. BONES/JOINTS: No acute findings. SOFT TISSUES: No acute findings. RAD/Acute Abdomen Inc Chest IMPRESSION: 1. Prominent stomach with large amount of ingested contents in the lumen. This may indicate gastroparesis. 2. Moderate stool in the right colon. Electronically Signed: Fredrick Amezcua MD at 4:47 EDT ,
[2022-03-01] MEDS: Morphine 4 MG/ML Syringe IV (04:16)
[2022-03-01] MEDS: 0.9% Normal Saline 1,000 ML 999 ML IV (04:16)
[2022-03-01] MEDS: Ondansetron 4 MG/2 ML Vial IV (04:16)
[2022-03-01 04:24] LABS: Absolute Lymphocyte Count 2.23 X10^3/uL (0.83-4.51); Absolute Neutrophil Count 5.4 X10^3/uL (2.0-7.7); Basophil# 0.06 X10^3/uL; Basophil% 0.7 % (0-1); Eosinophil# 0.23 X10^3/uL; Eosinophils% 2.7 % (0-5); Hematocrit 41.9 % (37-47); Hemoglobin 14.4 g/dL (12.0-15.0); Lymphocyte # 2.23 X10^3/ul (0.83-4.51); Lymphocyte % 26.3 % (19-41); Mean Corp Hgb Conc 34.4 g/dL (32-36); Mean Corpuscular Hgb 29.4 pg (27.0-32.0); Mean Corpuscular Volume 85.7 fL (81-99); Mean Platelet Vol. 12.9 fl (6.2-12.0); Monocyte# 0.53 X10^3/uL; Monocyte% 6.2 % (0-10); NRBC Flagged by Analyzer 0 % (0-5); Neutrophil # 5.41 X10^3/uL (2.7-7.7); Neutrophil % 63.7 % (47-70); Platelet Count 174 K/mm3 (150-450); RBC Distribution Width CV 13.2 % (11.6-14.6); RBC Distribution Width SD 41.1 fl (35.1-43.9); Red Blood Count 4.89 M/mm3 (4.2-5.4); White Blood Count 8.5 K/mm3 (4.4-11.0)
[2022-03-01 04:48] LABS: AST(SGOT) 10 U/L (15-37); Alanine Aminotransfer ALT/SGPT 17 U/L (13-56); Albumin, Serum 3.3 g/dL (3.2-5.0); Alkaline Phosphatase 56 U/L (45-117); Anion Gap 6 (5-15); BUN 17 mg/dL (7-18); BUN/Creat Ratio 25.5 RATIO (10-20); Bilirubin, Direct 0.14 mg/dL (0.00-0.30); Calcium,Total 8.9 mg/dL (8.5-10.1); Chloride 104 mmol/L (98-107); Creatinine, Serum 0.67 mg/dL (0.55-1.02); EST Glomerular Filtration Rate 105 mL/min (>60); Est Glom Filt Rate - Afr Amer 127 mL/min (>60); Estimated Creatinine Clearance 114.85 ml/min; Globulin 3.4 g/dL (2.2-4.2); Glucose 302 mg/dL (74-106); Lipase 116 U/L (73-393); Potassium 4.1 mmol/L (3.5-5.1); Protein, Total 6.7 g/dL (6.4-8.2); Sodium Level 136 mmol/L (136-145)
[2022-03-01 05:05] LABS: Internal QC Validated? YES +Cl - CLEAR BKGD; Pregnancy, Urine Negative Negative
[2022-03-01] MEDS: Metoclopramide 10 MG/2 ML Vial IV (05:20)
--- NOTE | 2022-03-01 05:20 | EDS_ITS ---
HPI History of Present Illness Chief Complaint: Abd Pain Narrative Narrative: Patient is a 36-year-old female with past medical history of type 2 diabetes currently on insulin with bipolar disorder and polyneuropathy. 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 She states her stomach was feeling slightly off during the day but when she was at work developed increased pain with bouts of nausea and vomiting. She states her son was recently sick with vomiting a few days earlier but otherwise she denies any known sick contacts. She denies any fevers or chills or diarrhea or constipation. She denies any concern for . However with the worsening symptoms she was sent in for evaluation [facility] Medical History Anxiety and depression Bipolar disorder Craniofacial hyperhidrosis Diabetes Fibromyalgia Hemoglobin A1c greater than 9.0% History of necrotising fasciitis History of venous thromboembolism Hydradenitis Hypertension Hypertension Lactose intolerance in adult Obesity Open wound of vulva Polycystic ovary Polyneuropathy due to type 2 diabetes mellitus Type 2 diabetes mellitus Vulvar abscess Vulvar ulcer Home Medications loratadine 10 mg tablet 10 mg PO DAILY allergies 04/23/16 [History Last Taken 12/18/21] metformin 500 mg tablet 1,000 mg PO BIDCM diabetes 04/23/16 [History Last Taken 12/18/21] insulin lispro 100 unit/mL subcutaneous cartridge 20 unit SQ TID diabetes 12/05/18 [History Last Taken 12/18/21] gauze bandage 4 08/07 X 147 (Kerlix) #12 ea 01/21/21 [Rx Last Taken Unknown] albuterol sulfate 90 mcg/actuation aerosol inhaler 1 inh inhalation PRN PRN Shortness Of Breath 08/09/21 [History Last Taken Unknown] gabapentin 300 mg capsule 600 mg PO DAILY nerve pain 08/09/21 [History Last Taken 12/18/21] lidocaine 5 % topical ointment 1 applic topical PRN PRN Rash 08/09/21 [History Last Taken Unknown] omeprazole 40 mg capsule,delayed release 40 mg PO DAILY GERD 08/09/21 [History Last Taken 12/18/21] flash glucose scanning reader (LoginRadius Chirag 2 [place]) #1 ea 09/02/21 [Rx Last Taken Unknown] cholecalciferol (vitamin D3) 1,250 mcg (50,000 unit) capsule 1,250 mcg PO QWEEK supplement 12/18/21 [History Last Taken 12/15/21] dulaglutide 4.5 mg/0.5 mL subcutaneous pen injector (Trulicity) 4.5 mg subcut QW [place]K diabetes 12/18/21 [History Last Taken 12/15/21] gabapentin 300 mg capsule 900 mg PO QHS nerve pain 12/18/21 [History Last Taken 12/17/21] insulin degludec 100 unit/mL (3 mL) subcutaneous pen (Tresiba FlexTouch U-100 insulin) 40 unit subcut DAILY diabetes 12/18/21 [History Last Taken 12/18/21] losartan 100 mg tablet 100 mg PO DAILY blood pressure 12/18/21 [History Last Taken 12/18/21] biotin 1 mg capsule 1 mg PO DAILY 01/06/22 [History Last Taken Unknown] lactobacillus combination no.9 4 billion cell capsule (Adult 50 Plus Probiotic) 4,000 mmu cells PO DAILY 01/06/22 [History Last Taken Unknown] multivitamin 1 tab PO DAILY 01/06/22 [History Last Taken Unknown] flash glucose sensor (FreeStyle Chirag 2 Sensor kit) #2 ea 01/09/22 [Rx Last Taken Unknown] topiramate 50 mg tablet 50 mg PO 01/31/22 [History Last Taken Unknown] metoclopramide HCl 10 mg tablet (Reglan) 10 mg PO 4X/DAY PRN PRN nausea and vomiting #40 tabs 03/01/22 [Rx Last Taken Unknown] Allergy/AdvReac Type Severity Reaction Status Date / Time doxycycline Allergy Severe rash Verified 03/01/22 03:40 amoxicillin [Amoxicillin] Allergy Unknown Verified 03/01/22 03:40 asenapine maleate Allergy Unknown Verified 03/01/22 03:40 [From Saphris] cephalexin AdvReac Intermediate upset Verified 03/01/22 03:40 stomach Family History Mother Hypertension Brain aneurysm Father Diabetes Hypertension Grandmother Cancer liver throat kidney Diabetes Hypertension Heart disease CVA (cerebral vascular accident) Breast cancer Grandfather Kidney disease Hypertension CVA (cerebral vascular accident) Surgical History H/O lateral meniscus repair of left knee Social History Smoking Status: Current every day smoker tobacco type: cigarettes alcohol intake: never substance use type: does not use caffeine: Yes frequency: 5-6 times per week seatbelt use: always do you feel safe at home: Yes additional social history: Jonathan- Unemployed Patient is on disability ROS ROS ED Constitutional Constitutional ED: Denies chills or fever(s) ENT ENT ED: Denies sore throat Cardiovascular Cardiovascular: Denies chest pain Respiratory/Chest Respiratory/Chest: Denies cough or dyspnea Gastrointestinal Gastrointestinal: Reports abdominal pain and nausea; Denies diarrhea or vomiting Genitourinary Genitourinary ED: Denies dysuria Musculoskeletal Musculoskeletal: Denies myalgias Integumentary Denies rash Neurologic Neurologic: Denies headache(s) Hematologic/Lymphatic Hematologic/Lymphatic: Denies easy bleeding or easy bruising EXAM Physical Exam Const Vital Signs: 03/01/22 03:37 Temperature 96.5 F L Temperature Source Temporal Pulse Rate 89 Respiratory Rate 16 Blood Pressure 182/99 H Blood Pressure Mean 126 Pulse Ox 99 Oxygen Delivery Method Room Air Positive well nourished, well developed and obese General Appearance ED: well developed Nutritional Appearance: obese HEENT Reports moist mucous membranes Eyes PERRL and EOMs intact bilaterally Neck supple Resp normal respiratory effort and clear to auscultation bilaterally Cardio regular rate and regular rhythm Rate: other Other Details: Radial pulses are plus 2 out of 4 bilaterally are equal and symmetric GI non-distended GI Narrative: At [place] is obese soft and nondistended with hypoactive bowel sound. There is pain on palpation in the left upper quadrant without voluntary guarding or rigidity. No pulsatile mass or fluid wave Auscultation: hypoactive bowel sounds Palpation: soft Back/Spine no CVA tenderness Extremity normal to inspection Extremity Narrative: No asymmetric edema no pitting edema negative Homans' sign bilaterally Neuro oriented x3 and CN's II-XII intact bilaterally Sensorium / Orientation: alert Psych mental status grossly normal Skin no rashes or lesions noted and skin turgor normal General Skin Exam: Negative for jaundice MDM MDM MDM Narrative Medical decision making narrative: Patient presented to the ER hypertensive but does have a history of this and I feel it is related secondary to the pain she feels. There was concern this could be viral in nature with her recent exposure to her son who did have bouts of nausea and vomiting over the weekend. However based on her medical comorbid ities of diabetes there is concern it could be secondary to this and therefore a basic work-up was obtained. She is not distended or rigid therefore do not have need for emergent CT scan but an acute abdominal series x-ray was ordered. Imaging so distention of the stomach consistent with gastroparesis which would fit her chronically elevated blood sugar and diabetes. Otherwise there is no signs of perforation or obstruction. Patient's labs revealed no clinically significant findings other than a glucose of 300. Despite this she has normal anion gap and serum bicarb going against DKA. Patient was given IV fluids morphine Zofran and IV Reglan and did have improvement of symptoms. Therefore at this time I feel this is most likely gastroparesis from her uncontrolled diabetes but as she does not have signs of systemic infection or intestinal obstruction there is no need for admission and patient can be discharged home Lab Data Attestation: I reviewed the patient's lab results. Labs: Laboratory Results - last 24 hr 03/01/22 03/01/22 03/01/22 04:00 04:00 04:40 WBC 8.5 RBC 4.89 Hgb 14.4 Hct 41.9 MCV 85.7 MCH 29.4 MCHC 34.4 RDW Std Deviation 41.1 RDW Coeff of Amada 13.2 Plt Count 174 MPV 12.9 H Immature Gran % (Auto) 0.400 Neut % (Auto) 63.7 Lymph % (Auto) 26.3 [place] % (Auto) 6.2 Eos % (Auto) 2.7 Baso % (Auto) 0.7 Absolute Neuts (auto) 5.4 Absolute Lymphs (auto) 2.23 Nucleated RBC % 0 Sodium 136 Potassium 4.1 Chloride 104 Carbon Dioxide 26.0 Anion Gap 6 BUN 17 Creatinine 0.67 Estim Creat Clear Calc 114.85 Est GFR (MDRD) Af Amer 127 Est GFR (MDRD) Non-Af 105 BUN/Creatinine Ratio 25.5 H Glucose 302 H Calcium 8.9 Total Bilirubin 0.50 Direct Bilirubin 0.14 AST 10 L ALT 17 Alkaline Phosphatase 56 Total Protein 6.7 Albumin 3.3 Globulin 3.4 Lipase 116 Urine Test Negative Radiography Diagnostic Testing: Clinical Impression(s) from Imaging Studies Acute Abdomen Series 03/01/22 04:06 IMPRESSION: 1. Prominent stomach with large amount of ingested contents in the lumen. This may indicate gastroparesis. 2. Moderate stool in the right colon. Electronically Signed: Fredrick Amezcua MD at 4:47 EDT , Acute abdominal series with 1 view chest as interpreted by the emergency medicine physician reveals a prominent stomach with ingested contents present without obvious perforation or obstruction or signs of acute lung pathology Discharge Plan Triage Chief Complaint: Abd Pain ED Provider: Pancho Sanchez Dx/Rx/DC Orders Clinical Impression: Diabetic gastroparesis, Hypertension, Abdominal pain Instructions: Abdominal Pain, ED Diabetic Gastroparesis Prescriptions: New metoclopramide HCl [Reglan] 10 mg tablet 10 mg PO 4X/DAY PRN PRN (Reason: nausea and vomiting) Qty: 40 0RF No Action gabapentin 300 mg capsule 600 mg PO DAILY Label Comments: TAKE 1 CAPSULE BY MOUTH TWICE DAILY omeprazole 40 mg capsule,delayed release(DR/EC) 40 mg PO DAILY Label Comments: TAKE 1 CAPSULE ONCE DAILY albuterol sulfate 90 mcg/actuation HFA aerosol inhaler 1 inh inhalation PRN PRN (Reason: Shortness Of Breath) Label Comments: inhale 2 puffs every 4 hours as needed for wheezing and shortness of breath lidocaine 5 % ointment 1 applic topical PRN PRN (Reason: Rash) Label Comments: APPLY TO THE AFFECTED AREA(S) ONCE DAILY biotin 1 mg capsule 1 mg PO DAILY multivitamin Tablet 1 tab PO DAILY Adult 50 Plus Probiotic 4 billion cell capsule 4,000 mmu cells PO DAILY topiramate 50 mg tablet 50 mg PO Label Comments: Take 1 tablet by mouth daily at bedtime. metformin 500 MG tablet 1,000 mg PO BIDCM Label Comments: diabetes loratadine 10 MG tablet 10 mg PO DAILY Label Comments: allergies insulin lispro 100 UNIT/ML cartridge 20 unit SQ TID Rx Instructions: Sliding scale (DME) Kerlix 4 1/2 X 147 bandage See Rx Instructions .ROUTE .MEDSUPPLY Qty: 12 3RF Rx Instructions: apply to wound daily gabapentin 300 mg capsule 900 mg PO QHS Label Comments: TAKE 1 (ONE) capsule in the morning and 3 (THREE) CAPSULES AT BEDTIME Tresiba FlexTouch U-100 100 unit/mL (3 mL) insulin pen 40 unit SUBCUT DAILY Label Comments: Inject 70 Units subcutaneously every morning. losartan 100 mg tablet 100 mg PO DAILY cholecalciferol (vitamin D3) 1,250 mcg (50,000 unit) capsule 1,250 mcg PO QWEEK Rx Instructions: sunday Trulicity 4.5 mg/0.5 mL pen injector 4.5 mg subcut QWEEK (DME) FreeStyle Chirag 2 [place] Misc See Rx Instructions .ROUTE .MEDSUPPLY Qty: 1 0RF Rx Instructions: As directed (DME) FreeStyle Chirag 2 Sensor Kit See Rx Instructions .ROUTE .MEDSUPPLY Qty: 2 1RF Rx Instructions: As directed Primary Care Provider: Yazmin Ludwig Referrals: Yazmin Ludwig MD [Primary Care Provider] - Disposition Disposition: Home, Self Care
[2022-03-01 06:07] VITALS: BP 145/76; PULSE 82; RESP 14; O2SAT 98
== END 2022-03-01 06:08 | disposition home or self-care (01) ==
PROVIDERS: Emergency Provider Emergency Medicine; PCP Internal Medicine; Visit Provider Emergency Medicine
DX: E11.43 Type 2 diabetes mellitus with diabetic autonomic (poly)neuropathy (principal); F31.9 Bipolar disorder, unspecified; E11.42 Type 2 diabetes mellitus with diabetic polyneuropathy; Z79.4 Long term (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 of insulin; I10 Essential (primary) hypertension; F41.9 Anxiety disorder, unspecified; M79.7 Fibromyalgia; E28.2 Polycystic ovarian syndrome; Z79.899 Other long term (current) drug therapy; F17.210 Nicotine dependence, cigarettes, uncomplicated; E66.9 Obesity, unspecified; K31.84 Gastroparesis
CPT/HCPCS: 74022; 80048; 80076; 81025; 83690; 85025; 96361; 96374; 96375; 99283; J7030; A4216; J2405

== ENCOUNTER 2022-03-11 06:47 | Emergency (ER) | payer MEDICARE, MEDICAID, SELFPAY ==
[2022-03-11 06:48] VITALS: BP 193/125; PULSE 88; RESP 16; TEMP 35.7; O2SAT 98; BMI 34.6
--- NOTE | 2022-03-11 07:06 | ED.VIS.DENTA ---
HPI History of Present Illness Chief Complaint: Dental Detail of Chief Complaint: Dental pain Informant: patient Narrative Narrative: Patient presents to the emergency department with complaint of dental pain that started in the middle of the night. Patient states that she had all 4 wisdom teeth removed under general anesthesia 3 days ago. Patient was started on Zithromax and had ibuprofen and few days worth of [place] which she ran out of last night. Patient denies any fevers. Patient states the pain became severe last night and she thinks that her face is more swollen. Patient states that her dentist is not in the office today. Prior similar symptoms: No PFSH PFSH Medical History Anxiety and depression Bipolar disorder Craniofacial hyperhidrosis Diabetes Fibromyalgia Hemoglobin A1c greater than 9.0% History of necrotising fasciitis History of venous thromboembolism Hydradenitis Hypertension Hypertension Lactose intolerance in adult Obesity Open wound of vulva Polycystic ovary Polyneuropathy due to type 2 diabetes mellitus Type 2 diabetes mellitus Vulvar abscess Vulvar ulcer Home Medications loratadine 10 mg tablet 10 mg PO DAILY allergies 04/23/16 [History Last Taken 12/18/21] metformin 500 mg tablet 1,000 mg PO BIDCM diabetes 04/23/16 [History Last Taken 12/18/21] insulin lispro 100 unit/mL subcutaneous cartridge 20 unit SQ TID diabetes 12/05/18 [History Last Taken 12/18/21] gauze bandage 4 12 X 147 (Kerlix) #12 ea 01/21/21 [Rx Last Taken Unknown] albuterol sulfate 90 mcg/actuation aerosol inhaler 1 inh inhalation PRN PRN Shortness Of Breath 08/09/21 [History Last Taken Unknown] gabapentin 300 mg capsule 600 mg PO DAILY nerve pain 08/09/21 [History Last Taken 12/18/21] lidocaine 5 % topical ointment 1 applic topical PRN PRN Rash 08/09/21 [History Last Taken Unknown] omeprazole 40 mg capsule,delayed release 40 mg PO DAILY GERD 08/09/21 [History Last Taken 12/18/21] flash glucose scanning reader ([employer] Chirag 2 [place]) #1 ea 09/02/21 [Rx Last Taken Unknown] cholecalciferol (vitamin D3) 1,250 mcg (50,000 unit) capsule 1,250 mcg PO QWEEK supplement 12/18/21 [History Last Taken 12/15/21] gabapentin 300 mg capsule 900 mg PO QHS nerve pain 12/18/21 [History Last Taken 12/17/21] insulin degludec 100 unit/mL (3 mL) subcutaneous pen (Tresiba FlexTouch U-100 insulin) 40 unit subcut DAILY diabetes 12/18/21 [History Last Taken 12/18/21] losartan 100 mg tablet 100 mg PO DAILY blood pressure 12/18/21 [History Last Taken 12/18/21] biotin 1 mg capsule 1 mg PO DAILY 01/06/22 [History Last Taken Unknown] lactobacillus combination no.9 4 billion cell capsule (Adult 50 Plus Probiotic) 4,000 mmu cells PO DAILY 01/06/22 [History Last Taken Unknown] multivitamin 1 tab PO DAILY 01/06/22 [History Last Taken Unknown] flash glucose sensor (FreeStyle Chirag 2 Sensor kit) #2 ea 01/09/22 [Rx Last Taken Unknown] topiramate 50 mg tablet 50 mg PO 01/31/22 [History Last Taken Unknown] metoclopramide HCl 10 mg tablet (Reglan) 10 mg PO 4X/DAY PRN PRN nausea and vomiting #40 tabs 03/01/22 [Rx Last Taken Unknown] dulaglutide 4.5 mg/0.5 mL subcutaneous pen injector (Trulicity) 4.5 mg (0.5 mL) subcut QWEEK diabetes #2 mL 03/07/22 [Rx Last Taken Unknown] clindamycin HCl 300 mg capsule (Cleocin HCl) 300 mg PO Q6H #40 CAPSULES 03/11/22 [Rx Last Taken Unknown] hydrocodone-acetaminophen 5-325mg 5mg-325mg 1 tab PO Q4H PRN PRN Pain 2 days #14 TABLETS 03/11/22 [Rx Last Taken Unknown] Allergy/AdvReac Type Severity Reaction Status Date / Time doxycycline Allergy Severe rash Verified 03/11/22 06:51 amoxicillin [Amoxicillin] Allergy Unknown Verified 03/11/22 06:51 asenapine maleate Allergy Unknown Verified 03/11/22 06:51 [From Saphris] cephalexin AdvReac Intermediate upset Verified 03/11/22 06:51 stomach Family History Mother Hypertension Brain aneurysm Father Diabetes Hypertension Grandmother Cancer liver throat kidney Diabetes Hypertension Heart disease CVA (cerebral vascular accident) Breast cancer Grandfather Kidney disease Hypertension CVA (cerebral vascular accident) Surgical History H/O lateral meniscus repair of left knee Social History Smoking Status: Current every day smoker tobacco type: cigarettes alcohol intake: never substance use type: does not use caffeine: Yes frequency: 5-6 times per week seatbelt use: always do you feel safe at home: Yes additional social history: Jonathan- Unemployed Patient is on disability ROS ROS ED Review of Systems ROS Unobtainable: other Constitutional Constitutional ED: Reports lethargy; Denies chills, fever(s), sweats or weight loss Eyes Eyes: Denies blurry vision, change in vision or diplopia ENT ENT ED: Reports other Details: Dental pain ; Denies rhinorrhea or sore throat Cardiovascular Cardiovascular: Denies chest pain, orthopnea or racing heartbeat Respiratory/Chest Respiratory/Chest: Reports dyspnea and dyspnea on exertion; Denies cough, orthopnea or sputum Gastrointestinal Gastrointestinal: Denies abdominal pain, diarrhea, nausea or vomiting Genitourinary Genitourinary ED: Denies dysuria, hematuria or urinary frequency Musculoskeletal Musculoskeletal: Denies arthralgias, back pain, myalgias or neck pain Integumentary Denies abscess, Abrasions or rash Neurologic Neurologic: Denies headache(s) or weakness Psychiatric Psychiatric: Denies anxiety, depression or suicidal thoughts Endocrine Endocrinology: Denies polydipsia, polyphagia or polyuria Hematologic/Lymphatic Hematologic/Lymphatic: Denies easy bleeding, easy bruising or lymphadenopathy Allergic/Immunologic Allergic/Immunologic ED: Denies mouth swelling, tongue swelling or urticaria EXAM Physical Exam Const Vital Signs: 03/11/22 06:48 Temperature 96.2 F L Temperature Source Temporal Pulse Rate 88 Respiratory Rate 16 Blood Pressure 193/125 H Blood Pressure Mean 147 Pulse Ox 98 Oxygen Delivery Method Room Air Positive well nourished and well developed General Appearance ED: well developed and NAD HEENT Reports TM's clear and moist mucous membranes HEENT Narrative: Dentition-patient has noted extractions of upper and lower molars. I do not appreciate any gingival erythema or abscess formation. Patient has no facial cellulitis noted. She does have some mild soft tissue swelling over the left upper face. normocephalic and atraumatic; Negative for trauma or tenderness Tympanic Membrane ED: Yes TM's clear Eyes PERRL and EOMs intact bilaterally General Eye ED: Negative for pale conjunctiva or scleral icterus Neck no lymphadenopathy, supple and no JVD General: Negative for tenderness Chest Wall inspection of chest normal and palpation of chest normal Chest: Negative for tenderness Resp normal respiratory effort and clear to auscultation bilaterally Effort and Inspection: Negative for respiratory distress or pain with movement Auscultation: Negative for rhonchi, wheezes or diminished lung sounds Cardio regular rate, regular rhythm, S1 normal heart sound, S2 normal heart sound and no murmurs Peripheral Pulses: pulses 2+ throughout GI normal to inspection, nondistended, normoactive bowel sounds, soft to palpation, non-tender, non-distended and no masses Back/Spine no CVA tenderness and no thoracic nor lumbar tenderness Extremity normal to inspection General Extremety ED: Negative for edema General Extremity: Negative for edema Neuro oriented x3, CN's II-XII intact bilaterally, no sensory deficits noted and gait normal Sensorium / Orientation: awake, alert, oriented to person, oriented to place and oriented to time Motor Exam: strength 5/5 throughout and strength abnormal Psych mental status grossly normal Skin no rashes or lesions noted and no wounds MDM MDM MDM Narrative Medical decision making narrative: Patient was given 2 [place] p.o. and will be started on clindamycin. Patient advised to follow-up with her dentist at the earliest possible time. Patient advised to return if fever, facial redness or swelling, or condition should worsen anyway. Discharge Plan Triage Chief Complaint: Dental ED Provider: Daniel Mzt Dx/Rx/DC Orders Clinical Impression: Pain, dental Instructions: ED Dental Pain Prescriptions: New clindamycin HCl [Cleocin HCl] 300 mg capsule 300 mg PO Q6H Qty: 40 0RF hydrocodone-acetaminophen [hydrocodone-acetaminophen] 5-325 mg tablet 1 tab PO Q4H PRN PRN (Reason: Pain) 2 Days Qty: 14 0RF No Action gabapentin 300 mg capsule 600 mg PO DAILY Label Comments: TAKE 1 CAPSULE BY MOUTH TWICE DAILY omeprazole 40 mg capsule,delayed release(DR/EC) 40 mg PO DAILY Label Comments: TAKE 1 CAPSULE ONCE DAILY albuterol sulfate 90 mcg/actuation HFA aerosol inhaler 1 inh inhalation PRN PRN (Reason: Shortness Of Breath) Label Comments: inhale 2 puffs every 4 hours as needed for wheezing and shortness of breath lidocaine 5 % ointment 1 applic topical PRN PRN (Reason: Rash) Label Comments: APPLY TO THE AFFECTED AREA(S) ONCE DAILY biotin 1 mg capsule 1 mg PO DAILY multivitamin Tablet 1 tab PO DAILY Adult 50 Plus Probiotic 4 billion cell capsule 4,000 mmu cells PO DAILY topiramate 50 mg tablet 50 mg PO Label Comments: Take 1 tablet by mouth daily at bedtime. metformin 500 MG tablet 1,000 mg PO BIDCM Label Comments: diabetes loratadine 10 MG tablet 10 mg PO DAILY Label Comments: allergies insulin lispro 100 UNIT/ML cartridge 20 unit SQ TID Rx Instructions: Sliding scale (DME) Kerlix 4 1/2 X 147 bandage See Rx Instructions .ROUTE .MEDSUPPLY Qty: 12 3RF Rx Instructions: apply to wound daily gabapentin 300 mg capsule 900 mg PO QHS Label Comments: TAKE 1 (ONE) capsule in the morning and 3 (THREE) CAPSULES AT BEDTIME Tresiba FlexTouch U-100 100 unit/mL (3 mL) insulin pen 40 unit SUBCUT DAILY Label Comments: Inject 70 Units subcutaneously every morning. losartan 100 mg tablet 100 mg PO DAILY cholecalciferol (vitamin D3) 1,250 mcg (50,000 unit) capsule 1,250 mcg PO QWEEK Rx Instructions: sunday metoclopramide HCl [Reglan] 10 mg tablet 10 mg PO 4X/DAY PRN PRN (Reason: nausea and vomiting) Qty: 40 0RF (DME) FreeStyle Chirag 2 [place] Misc See Rx Instructions .ROUTE .MEDSUPPLY Qty: 1 0RF Rx Instructions: As directed (DME) FreeStyle Chirag 2 Sensor Kit See Rx Instructions .ROUTE .MEDSUPPLY Qty: 2 1RF Rx Instructions: As directed Trulicity 4.5 mg/0.5 mL pen injector 4.5 mg subcut QWEEK Qty: 2 3RF Primary Care Provider: Yazmin Ludwig Referrals: Yazmin Ludwig MD [Primary Care Provider] - Disposition Disposition: Home, Self Care
[2022-03-11] MEDS: HYDROcodone Bitartrate/Apap 5/325 Tablet PO (07:34)
[2022-03-11] MEDS: Clindamycin HCl 150 MG Capsule 300 MG PO (07:34)
[2022-03-11 07:37] VITALS: BP 204/114; PULSE 84; RESP 16; O2SAT 99
== END 2022-03-11 07:39 | disposition home or self-care (01) ==
LOC: ED 07:19
PROVIDERS: Emergency Provider Emergency Medicine; PCP Internal Medicine; Visit Provider Emergency Medicine
DX: K08.89 Other specified disorders of teeth and supporting structures (principal); F31.9 Bipolar disorder, unspecified; E11.42 Type 2 diabetes mellitus with diabetic polyneuropathy; Z79.4 Long term (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 of insulin; I10 Essential (primary) hypertension; F41.9 Anxiety disorder, unspecified; M79.7 Fibromyalgia; E28.2 Polycystic ovarian syndrome; Z79.899 Other long term (current) drug therapy; F17.210 Nicotine dependence, cigarettes, uncomplicated
CPT/HCPCS: 99283

== ENCOUNTER 2022-03-25 04:02 | Emergency (ER) | payer MEDICARE, MEDICAID, SELFPAY ==
[2022-03-25 04:02] VITALS: BP 197/95; PULSE 86; RESP 18; TEMP 36.8; O2SAT 97; BMI 33.5
--- NOTE | 2022-03-25 04:22 | ED.VIS.DENTA ---
HPI History of Present Illness Chief Complaint: Dental Narrative Narrative: 36-year-old female presenting with chief complaint of I do not feel well. She states that she has a headache and she has been nauseous. She vomited once. Patient also admits to having diarrhea. She has not had a fever. She states she is very tired all the time. Patient did have recent dental surgery at the beginning of the month. She states she had her wisdom teeth pulled on 03/08/2022. She has had recurrent pain in the mouth since then. She was initially on a Z-Adryan and then clindamycin. She is currently on Flagyl. After being seen in the ER after her initial surgery she went back to the dentist and they told her that she might have dry socket. On her second visit back they state they were not sure if she had dry socket. Patient has not specifically had a fever. She has no known sick contacts. She denies cough or shortness of breath. [facility] Medical History Anxiety and depression Bipolar disorder Craniofacial hyperhidrosis Diabetes Fibromyalgia Hemoglobin A1c greater than 9.0% History of necrotising fasciitis History of venous thromboembolism Hydradenitis Hypertension Hypertension Lactose intolerance in adult Obesity Open wound of vulva Polycystic ovary Polyneuropathy due to type 2 diabetes mellitus Type 2 diabetes mellitus Vulvar abscess Vulvar ulcer Home Medications loratadine 10 mg tablet 10 mg PO DAILY allergies 04/23/16 [History Last Taken 12/18/21] metformin 500 mg tablet 1,000 mg PO BIDCM diabetes 04/23/16 [History Last Taken 12/18/21] insulin lispro 100 unit/mL subcutaneous cartridge 20 unit SQ TID diabetes 12/05/18 [History Last Taken 12/18/21] gauze bandage 4 08/07 X 147 (Kerlix) #12 ea 01/21/21 [Rx Last Taken Unknown] albuterol sulfate 90 mcg/actuation aerosol inhaler 1 inh inhalation PRN PRN Shortness Of Breath 08/09/21 [History Last Taken Unknown] gabapentin 300 mg capsule 600 mg PO DAILY nerve pain 08/09/21 [History Last Taken 12/18/21] lidocaine 5 % topical ointment 1 applic topical PRN PRN Rash 08/09/21 [History Last Taken Unknown] omeprazole 40 mg capsule,delayed release 40 mg PO DAILY GERD 08/09/21 [History Last Taken 12/18/21] flash glucose scanning reader (FreeStyle Chirag 2 [place]) #1 ea 09/02/21 [Rx Last Taken Unknown] cholecalciferol (vitamin D3) 1,250 mcg (50,000 unit) capsule 1,250 mcg PO QWEEK supplement 12/18/21 [History Last Taken 12/15/21] gabapentin 300 mg capsule 900 mg PO QHS nerve pain 12/18/21 [History Last Taken 12/17/21] insulin degludec 100 unit/mL (3 mL) subcutaneous pen (Tresiba FlexTouch U-100 insulin) 40 unit subcut DAILY diabetes 12/18/21 [History Last Taken 12/18/21] losartan 100 mg tablet 100 mg PO DAILY blood pressure 12/18/21 [History Last Taken 12/18/21] biotin 1 mg capsule 1 mg PO DAILY 01/06/22 [History Last Taken Unknown] lactobacillus combination no.9 4 billion cell capsule (Adult 50 Plus Probiotic) 4,000 mmu cells PO DAILY 01/06/22 [History Last Taken Unknown] multivitamin 1 tab PO DAILY 01/06/22 [History Last Taken Unknown] flash glucose sensor (FreeStyle Chirag 2 Sensor kit) #2 ea 01/09/22 [Rx Last Taken Unknown] topiramate 50 mg tablet 50 mg PO 01/31/22 [History Last Taken Unknown] metoclopramide HCl 10 mg tablet (Reglan) 10 mg PO 4X/DAY PRN PRN nausea and vomiting #40 tabs 03/01/22 [Rx Last Taken Unknown] dulaglutide 4.5 mg/0.5 mL subcutaneous pen injector (Trulicity) 4.5 mg (0.5 mL) subcut QWEEK diabetes #2 mL 03/07/22 [Rx Last Taken Unknown] clindamycin HCl 300 mg capsule (Cleocin HCl) 300 mg PO Q6H #40 CAPSULES 03/11/22 [Rx Last Taken Unknown] hydrocodone-acetaminophen 5-325mg 5mg-325mg 1 tab PO Q4H PRN PRN Pain 2 days #14 TABLETS 03/11/22 [Rx Last Taken Unknown] ondansetron 4 mg disintegrating tablet 4 mg PO Q8H PRN nausea and vomiting #14 tabs 03/25/22 [Rx Last Taken Unknown] Allergy/AdvReac Type Severity Reaction Status Date / Time doxycycline Allergy Severe rash Verified 03/11/22 06:51 amoxicillin [Amoxicillin] Allergy Unknown Verified 03/11/22 06:51 asenapine maleate Allergy Unknown Verified 03/11/22 06:51 [From Saphris] cephalexin AdvReac Intermediate upset Verified 03/11/22 06:51 stomach Family History Mother Hypertension Brain aneurysm Father Diabetes Hypertension Grandmother Cancer liver throat kidney Diabetes Hypertension Heart disease CVA (cerebral vascular accident) Breast cancer Grandfather Kidney disease Hypertension CVA (cerebral vascular accident) Surgical History H/O lateral meniscus repair of left knee Social History Smoking Status: Current every day smoker tobacco type: cigarettes alcohol intake: never substance use type: does not use caffeine: Yes frequency: 5-6 times per week seatbelt use: always do you feel safe at home: Yes additional social history: Jonathan- Unemployed Patient is on disability ROS ROS ED Constitutional Constitutional ED: Reports other Details: Fatigue ; Denies chills or fever(s) Eyes Eyes: Denies change in vision or other ENT ENT ED: Reports other Details: Dental pain ; Denies rhinorrhea or sore throat Cardiovascular Cardiovascular: Denies chest pain Respiratory/Chest Respiratory/Chest: Denies cough or dyspnea Gastrointestinal Gastrointestinal: Reports nausea and vomiting Genitourinary Genitourinary ED: Denies dysuria or hematuria Musculoskeletal Musculoskeletal: Denies arthralgias or back pain Integumentary Denies rash Neurologic Neurologic: Reports headache(s) Psychiatric Psychiatric: Denies anxiety or depression EXAM Physical Exam Const Vital Signs: 03/25/22 04:02 Temperature 98.2 F Temperature Source Oral Pulse Rate 86 Respiratory Rate 18 Blood Pressure 197/95 H Blood Pressure Mean 129 Pulse Ox 97 Oxygen Delivery Method Room Air Positive well nourished General Appearance ED: NAD HEENT Negative for trauma Mouth ED: Yes oral and palatal mucosa normal, Yes lips normal and Yes tongue normal Mouth: oral and palatal mucosa normal, lips normal and tongue normal Teeth and Gingiva: Negative for caries Throat: posterior oropharynx normal Eyes PERRL and EOMs intact bilaterally Resp normal respiratory effort and no retractions Cardio regular rate and regular rhythm GI normal to inspection, nondistended, normoactive bowel sounds Back/Spine no CVA tenderness Neuro oriented x3 and CN's II-XII intact bilaterally Sensorium / Orientation: alert Motor Exam: strength 5/5 throughout Psych mental status grossly normal Skin no rashes or lesions noted MDM MDM MDM Narrative Medical decision making narrative: Although she states her main concern is that her teeth are infected the areas where her wisdom teeth were pulled appear to be normal. There is no evidence of infection. The posterior oropharynx is normal. Tongue is not swollen. No sublingual edema. There is no facial asymmetry. No trouble talking, swallowing, breathing. She does have nausea and she has vomited once so I will give her some Zofran. She has been on 3 different antibiotics and she is currently on Flagyl. Given her symptoms of fatigue, nausea, vomiting, diarrhea I will test her for COVID to make sure this is not a source. COVID testing is negative. Patient will be given a prescription for Zofran for home. She is counseled to follow-up with her dentist as needed for further dental care. Again I do not think this is the source of her symptoms. He does express that she has some pain here but its not as bad as it was. Patient is also had 3 different courses of narcotics over the last 20 days from 3 different prescribers. Impression: 1. Viral syndrome 2. Nausea 3. Dental pain Lab Data Attestation: I reviewed the patient's lab results. Discharge Plan Triage Chief Complaint: Dental ED Provider: Kolby Crocker Dx/Rx/DC Orders Instructions: ED Dental Pain, ED Vomiting (Adult) Prescriptions: New ondansetron 4 mg tablet,disintegrating 4 mg PO Q8H PRN (Reason: nausea and vomiting) Qty: 14 0RF No Action gabapentin 300 mg capsule 600 mg PO DAILY Label Comments: TAKE 1 CAPSULE BY MOUTH TWICE DAILY omeprazole 40 mg capsule,delayed release(DR/EC) 40 mg PO DAILY Label Comments: TAKE 1 CAPSULE ONCE DAILY albuterol sulfate 90 mcg/actuation HFA aerosol inhaler 1 inh inhalation PRN PRN (Reason: Shortness Of Breath) Label Comments: inhale 2 puffs every 4 hours as needed for wheezing and shortness of breath lidocaine 5 % ointment 1 applic topical PRN PRN (Reason: Rash) Label Comments: APPLY TO THE AFFECTED AREA(S) ONCE DAILY biotin 1 mg capsule 1 mg PO DAILY multivitamin Tablet 1 tab PO DAILY Adult 50 Plus Probiotic 4 billion cell capsule 4,000 mmu cells PO DAILY topiramate 50 mg tablet 50 mg PO Label Comments: Take 1 tablet by mouth daily at bedtime. metformin 500 MG tablet 1,000 mg PO BIDCM Label Comments: diabetes loratadine 10 MG tablet 10 mg PO DAILY Label Comments: allergies insulin lispro 100 UNIT/ML cartridge 20 unit SQ TID Rx Instructions: Sliding scale (DME) Kerlix 4 1/2 X 147 bandage See Rx Instructions .ROUTE .MEDSUPPLY Qty: 12 3RF Rx Instructions: apply to wound daily gabapentin 300 mg capsule 900 mg PO QHS Label Comments: TAKE 1 (ONE) capsule in the morning and 3 (THREE) CAPSULES AT BEDTIME Tresiba FlexTouch U-100 100 unit/mL (3 mL) insulin pen 40 unit SUBCUT DAILY Label Comments: Inject 70 Units subcutaneously every morning. losartan 100 mg tablet 100 mg PO DAILY cholecalciferol (vitamin D3) 1,250 mcg (50,000 unit) capsule 1,250 mcg PO QWEEK Rx Instructions: sunday metoclopramide HCl [Reglan] 10 mg tablet 10 mg PO 4X/DAY PRN PRN (Reason: nausea and vomiting) Qty: 40 0RF clindamycin HCl [Cleocin HCl] 300 mg capsule 300 mg PO Q6H Qty: 40 0RF hydrocodone-acetaminophen [hydrocodone-acetaminophen] 5-325 mg tablet 1 tab PO Q4H PRN PRN (Reason: Pain) 2 Days Qty: 14 0RF (DME) FreeStyle [employer] 2 [place] Misc See Rx Instructions .ROUTE .MEDSUPPLY Qty: 1 0RF Rx Instructions: As directed (DME) FreeStyle Chirag 2 Sensor Kit See Rx Instructions .ROUTE .MEDSUPPLY Qty: 2 1RF Rx Instructions: As directed Trulicity 4.5 mg/0.5 mL pen injector 4.5 mg subcut QWEEK Qty: 2 3RF Primary Care Provider: Yazmin Ludwig Referrals: Yazmin Ludwig MD [Primary Care Provider] - Disposition Disposition: Home, Self Care
[2022-03-25] MEDS: Ondansetron ODT 4 MG Tablet PO (04:33)
[2022-03-25 05:38] VITALS: BP 160/101; PULSE 88; RESP 15; O2SAT 98
== END 2022-03-25 05:39 | disposition home or self-care (01) ==
PROVIDERS: Emergency Provider Student in an Organized Health Care Education/Training Program; PCP Internal Medicine; Visit Provider Student in an Organized Health Care Education/Training Program
DX: B34.9 Viral infection, unspecified (principal); F31.9 Bipolar disorder, unspecified; E11.42 Type 2 diabetes mellitus with diabetic polyneuropathy; Z79.4 Long term (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 of insulin; F41.9 Anxiety disorder, unspecified; M79.7 Fibromyalgia; Z86.718 Personal history of other venous thrombosis and embolism; I10 Essential (primary) hypertension; E66.9 Obesity, unspecified; E28.2 Polycystic ovarian syndrome; Z79.899 Other long term (current) drug therapy; F17.210 Nicotine dependence, cigarettes, uncomplicated; R11.2 Nausea with vomiting, unspecified; K08.89 Other specified disorders of teeth and supporting structures
CPT/HCPCS: 87811; 99283

== ENCOUNTER 2022-05-08 12:44 | Emergency (ER) | payer MEDICARE, MEDICAID, SELFPAY ==
[2022-05-08 12:45] VITALS: BP 153/115; PULSE 99; RESP 18; TEMP 35.4; O2SAT 100; BMI 31.1
[2022-05-08 12:47] VITALS: BP 153/115; PULSE 99; RESP 18; TEMP 35.4; O2SAT 100
[2022-05-08 13:07] VITALS: BP 135/95; RESP 16; TEMP 36.6
[2022-05-08] MEDS: Dicyclomine 10 MG Capsule 20 MG PO (13:21)
[2022-05-08] MEDS: Metoclopramide 10 MG/2 ML Vial IV (13:21)
[2022-05-08] MEDS: 0.9% Normal Saline 1,000 ML 1000 ML IV (13:21)
[2022-05-08] MEDS: Morphine 2 MG/ML Syringe IV (13:21)
[2022-05-08 13:38] LABS: Absolute Lymphocyte Count 2.66 X10^3/uL (0.83-4.51); Absolute Neutrophil Count 7.6 X10^3/uL (2.0-7.7); Basophil# 0.06 X10^3/uL; Basophil% 0.5 % (0-1); Eosinophils% 2.7 % (0-5); Hematocrit 41.6 % (37-47); Hemoglobin 14.3 g/dL (12.0-15.0); Lymphocyte # 2.66 X10^3/ul (0.83-4.51); Lymphocyte % 23.5 % (19-41); Mean Corp Hgb Conc 34.4 g/dL (32-36); Mean Corpuscular Hgb 28.4 pg (27.0-32.0); Mean Corpuscular Volume 82.7 fL (81-99); Mean Platelet Vol. 12.1 fl (6.2-12.0); Monocyte# 0.68 X10^3/uL; NRBC Flagged by Analyzer 0 % (0-5); Neutrophil # 7.56 X10^3/uL (2.7-7.7); Neutrophil % 66.9 % (47-70); Platelet Count 192 K/mm3 (150-450); RBC Distribution Width CV 13.2 % (11.6-14.6); RBC Distribution Width SD 39.6 fl (35.1-43.9); Red Blood Count 5.03 M/mm3 (4.2-5.4); White Blood Count 11.3 K/mm3 (4.4-11.0)
[2022-05-08 13:47] VITALS: BP 142/82; PULSE 85; RESP 16; TEMP 36.4; O2SAT 97
[2022-05-08 13:50] LABS: Anion Gap 7 (5-15); BUN 16 mg/dL (7-18); BUN/Creat Ratio 28.2 RATIO (10-20); Calcium,Total 9.1 mg/dL (8.5-10.1); Chloride 104 mmol/L (98-107); Creatinine, Serum 0.57 mg/dL (0.55-1.02); EST Glomerular Filtration Rate 126 mL/min (>60); Est Glom Filt Rate - Afr Amer 152 mL/min (>60); Estimated Creatinine Clearance 133.67 ml/min; Glucose 130 mg/dL (74-106); Potassium 4.1 mmol/L (3.5-5.1); Sodium Level 140 mmol/L (136-145)
--- NOTE | 2022-05-08 13:50 | EDS_ITS ---
HPI History of Present Illness Chief Complaint: General Illness Detail of Chief Complaint: Nausea, vomiting and diarrhea out of the blue Informant: patient Onset/Context/Timing Onset: Hours (Started early this morning after arriving to work) Context: Sudden Onset Timing: Continuous and Waxes and wanes Quality: Colicky churning like generalized abdominal pain Location: Generalized abdominal pain Current Severity: Mild Maximum Severity: Moderate Worsened by: Nothing specific Relieved by: Nothing Associated Symptoms Associated Symptoms: Dry mouth, thirst and orthostatic symptoms Narrative Narrative: Patient is a 37-year-old woman who was recently diagnosed with type 2 diabetes who presents with abdominal pain, nausea, vomiting diarrhea. She does endorse thirst, dry mouth and orthostatic symptoms. She does endorse decreased urine output. She has had no ill contacts to her knowledge. She has not been vaccinated. She denies fever, chills night sweats. She denies headache, visual, ocular auditory symptoms. She denies cardiac respiratory symptoms. She denies change in color of her urine. She denies blood or coffee grounds in her emesis. She denies blood or mucus in her diarrhea. She states her diarrhea is watery. She has had several episodes since onset. She states she is vomited 4 or 5 times. Prior similar symptoms: Yes Recent Illness/Hospitalization: No PFSH PFS Medical History Anxiety and depression Bipolar disorder Craniofacial hyperhidrosis Diabetes Fibromyalgia Hemoglobin A1c greater than 9.0% History of necrotising fasciitis History of venous thromboembolism Hydradenitis Hypertension Hypertension Lactose intolerance in adult Obesity Open wound of vulva Polycystic ovary Polyneuropathy due to type 2 diabetes mellitus Type 2 diabetes mellitus Vulvar abscess Vulvar ulcer Home Medications insulin lispro 100 unit/mL subcutaneous cartridge 20 unit SQ TID diabetes 12/05/18 [History Last Taken 12/18/21] gauze bandage 4 08/07 X 147 (Kerlix) #12 ea 01/21/21 [Rx Last Taken Unknown] albuterol sulfate 90 mcg/actuation aerosol inhaler 1 inh inhalation PRN PRN Shortness Of Breath 08/09/21 [History Last Taken Unknown] gabapentin 300 mg capsule 600 mg PO DAILY nerve pain 08/09/21 [History Last Taken 12/18/21] flash glucose scanning reader (Vindi Chirag 2 [place]) #1 ea 09/02/21 [Rx Last Taken Unknown] cholecalciferol (vitamin D3) 1,250 mcg (50,000 unit) capsule 1,250 mcg PO QWEEK supplement 12/18/21 [History Last Taken 12/15/21] gabapentin 300 mg capsule 900 mg PO QHS nerve pain 12/18/21 [History Last Taken 12/17/21] insulin degludec 100 unit/mL (3 mL) subcutaneous pen (Tresiba FlexTouch U-100 insulin) 40 unit subcut DAILY diabetes 12/18/21 [History Last Taken 12/18/21] biotin 1 mg capsule 1 mg PO DAILY 01/06/22 [History Last Taken Unknown] lactobacillus combination no.9 4 billion cell capsule (Adult 50 Plus Probiotic) 4,000 mmu cells PO DAILY 01/06/22 [History Last Taken Unknown] multivitamin 1 tab PO DAILY 01/06/22 [History Last Taken Unknown] flash glucose sensor (FreeStyle Chirag 2 Sensor kit) #2 ea 01/09/22 [Rx Last Taken Unknown] topiramate 50 mg tablet 50 mg PO 01/31/22 [History Last Taken Unknown] metoclopramide HCl 10 mg tablet (Reglan) 10 mg PO 4X/DAY PRN PRN nausea and vomiting #40 tabs 03/01/22 [Rx Last Taken Unknown] dulaglutide 4.5 mg/0.5 mL subcutaneous pen injector (Trulicity) 4.5 mg (0.5 mL) subcut QWEEK diabetes #2 mL 03/07/22 [Rx Last Taken Unknown] ondansetron 4 mg disintegrating tablet 4 mg PO Q8H PRN nausea and vomiting #14 tabs 03/25/22 [Rx Last Taken Unknown] loratadine 10 mg tablet 10 mg PO DAILY allergies #90 tabs 04/18/22 [Rx Last Taken Unknown] losartan 100 mg tablet 100 mg PO DAILY blood pressure #90 tabs 04/18/22 [Rx Last Taken Unknown] metformin 500 mg tablet 1,000 mg PO BIDCM diabetes #90 tabs 04/18/22 [Rx Last Taken Unknown] omeprazole 40 mg capsule,delayed release 40 mg PO DAILY GERD #90 caps 04/18/22 [Rx Last Taken Unknown] Allergy/AdvReac Type Severity Reaction Status Date / Time doxycycline Allergy Severe rash Verified 05/08/22 12:47 amoxicillin [Amoxicillin] Allergy Unknown Verified 05/08/22 12:47 asenapine maleate Allergy Unknown Verified 05/08/22 12:47 [From Saphris] cephalexin AdvReac Intermediate upset Verified 05/08/22 12:47 stomach Family History Mother Hypertension Brain aneurysm Father Diabetes Hypertension Grandmother Cancer liver throat kidney Diabetes Hypertension Heart disease CVA (cerebral vascular accident) Breast cancer Grandfather Kidney disease Hypertension CVA (cerebral vascular accident) Surgical History H/O lateral meniscus repair of left knee Social History (Updated 05/08/22 @ 13:[address] Param Weaver MD) household members: spouse Smoking Status: Current every day smoker tobacco type: cigarettes alcohol intake: never substance use type: does not use caffeine: Yes frequency: 5-6 times per week seatbelt use: always do you feel safe at home: Yes additional social history: Jonathan- Unemployed Patient is on disability ROS ROS ED Constitutional Constitutional ED: Denies chills, fever(s), subjective, sweats or weight loss Eyes Eyes: Denies blurry vision, change in vision or diplopia ENT ENT ED: Denies ear pain, rhinorrhea or sore throat Cardiovascular Cardiovascular: Denies chest pain, palpitations or racing heartbeat Respiratory/Chest Respiratory/Chest: Denies cough, dyspnea or dyspnea on exertion Gastrointestinal Gastrointestinal: Reports abdominal pain, diarrhea and nausea; Denies melena Genitourinary Genitourinary ED: Denies dysuria, hematuria or urinary frequency Musculoskeletal Musculoskeletal: Denies arthralgias, back pain, myalgias or neck pain Integumentary Denies Abrasions or rash Neurologic Neurologic: Reports weakness; Denies headache(s) or paresthesias Psychiatric Psychiatric: Denies anxiety or depression Endocrine Endocrinology: Denies polydipsia, polyphagia or polyuria Hematologic/Lymphatic Hematologic/Lymphatic: Reports systems reviewed and no addt'l complaints, except as documented and none EXAM Physical Exam Const Vital Signs: 05/08/22 12:45 05/08/22 12:47 05/08/22 13:07 Temperature 95.7 F L 95.7 F L 97.9 F Temperature Source Temporal Temporal Oral Pulse Rate 99 99 Respiratory Rate 18 18 16 Respiratory Effort Blood Pressure 153/115 H 153/115 H 135/95 H Blood Pressure Mean 127 127 108 Pulse Ox 100 100 Oxygen Delivery Method Room Air Room Air Room Air 05/08/22 13:07 05/08/22 13:47 Temperature 97.6 F L Temperature Source Oral Pulse Rate 85 Respiratory Rate 16 Respiratory Effort Normal Non-Labored Blood Pressure 142/82 H Blood Pressure Mean 102 Pulse Ox 97 Oxygen Delivery Method Room Air Positive well nourished, well developed and obese Constitutional Narrative: Patient does appear pale and ill. She does not appear toxic. General Appearance ED: well developed and pallor; Negative for cyanotic, diaphoretic or NAD Nutritional Appearance: obese HEENT Reports dry mucous membranes HEENT Narrative: Head is atraumatic no cephalic. Ears normal. Nares patent. Uvula midline. There is no deviation of tongue with protrusion. There is no erythema or exudate of the posterior pharynx. Mouth ED: Yes dry mucous membranes Mouth: dry mucous membranes Eyes PERRL and EOMs intact bilaterally General Eye ED: Negative for pale conjunctiva or scleral icterus Neck no lymphadenopathy, supple and no JVD Chest Wall palpation of chest normal Resp normal respiratory effort and clear to auscultation bilaterally Cardio regular rate, regular rhythm, S1 normal heart sound, S2 normal heart sound and no murmurs GI non-distended and no masses; Negative for non-tender or hepatosplenomegaly Inspection: Negative for abdominal distention Auscultation: hyperactive bowel sounds Palpation: soft and tender other (Diffuse); Negative for guarding, splenomegaly or rebound tenderness present Back/Spine no CVA tenderness Extremity normal to inspection General Extremety ED: Negative for edema or tenderness General Extremity: Negative for edema Neuro oriented x3, CN's II-XII intact bilaterally and no sensory deficits noted Sensorium / Orientation: alert Motor Exam: strength 5/5 throughout Psych mental status grossly normal Skin no rashes or lesions noted, no wounds and skin turgor normal General Skin Exam: pallor; Negative for jaundice MDM MDM MDM Narrative Medical decision making narrative: Suspect acute viral illness. Since patient is diabetic basic metabolic panel was obtained to assess glucose, CO2 anion gap and electrolytes and specifically potassium. CBC was obtained to assess white count as well as H&H. Clinically s he appears dehydrated. 1 L of normal saline was ordered as well as antiemetic. Patient was reassessed at 1430. She feels markedly better. She has not had any further vomiting or diarrhea. She does report feeling better. Patient was informed of her test results and plan/diagnosis. Lab Data Attestation: I reviewed the patient's lab results. Lab results narrative: White is slightly elevated which is nonspecific. Basic metabolic panel is remarkable for glucose of 130 which is insignificant. UA is negative. Labs: Laboratory Results - last 24 hr 05/08/22 05/08/22 05/08/22 13:15 13:15 13:59 WBC 11.3 H RBC 5.03 Hgb 14.3 Hct 41.6 MCV 82.7 MCH 28.4 MCHC 34.4 RDW Std Deviation 39.6 RDW Coeff of Amada 13.2 Plt Count 192 MPV 12.1 H Immature Gran % (Auto) 0.400 Neut % (Auto) 66.9 Lymph % (Auto) 23.5 [place] % (Auto) 6.0 Eos % (Auto) 2.7 Baso % (Auto) 0.5 Absolute Neuts (auto) 7.6 Absolute Lymphs (auto) 2.66 Nucleated RBC % 0 Sodium 140 Potassium 4.1 Chloride 104 Carbon Dioxide 29.0 Anion Gap 7 BUN 16 Creatinine 0.57 Estim Creat Clear Calc 133.67 Est GFR (MDRD) Af Amer 152 Est GFR (MDRD) Non-Af 126 BUN/Creatinine Ratio 28.2 H Glucose 130 H Calcium 9.1 Urine Color Yellow Urine Clarity Clear Urine pH 8.0 Ur Specific [place] 1.010 Urine Protein Negative Urine Glucose (UA) Normal Urine Ketones Negative Urine Occult Blood Negative Urine Nitrite Negative Urine Bilirubin Negative Urine Urobilinogen Normal Ur Leukocyte Esterase 25 H Discharge Plan Triage Chief Complaint: General Illness ED Provider: Param Weaver Dx/Rx/DC Orders Clinical Impression: Combined abdominal pain, vomiting, and diarrhea, Dehydration, mild, Hyperglycemia due to type 2 diabetes mellitus Instructions: ED Viral Syndrome (Adult) Prescriptions: No Action gabapentin 300 mg capsule 600 mg PO DAILY Label Comments: TAKE 1 CAPSULE BY MOUTH TWICE DAILY albuterol sulfate 90 mcg/actuation HFA aerosol inhaler 1 inh inhalation PRN PRN (Reason: Shortness Of Breath) Label Comments: inhale 2 puffs every 4 hours as needed for wheezing and shortness of breath biotin 1 mg capsule 1 mg PO DAILY multivitamin Tablet 1 tab PO DAILY Adult 50 Plus Probiotic 4 billion cell capsule 4,000 mmu cells PO DAILY topiramate 50 mg tablet 50 mg PO Label Comments: Take 1 tablet by mouth daily at bedtime. insulin lispro 100 UNIT/ML cartridge 20 unit SQ TID Rx Instructions: Sliding scale (DME) Kerlix 4 1/2 X 147 bandage See Rx Instructions .ROUTE .MEDSUPPLY Qty: 12 3RF Rx Instructions: apply to wound daily gabapentin 300 mg capsule 900 mg PO QHS Label Comments: TAKE 1 (ONE) capsule in the morning and 3 (THREE) CAPSULES AT BEDTIME Tresiba FlexTouch U-100 100 unit/mL (3 mL) insulin pen 40 unit SUBCUT DAILY Label Comments: Inject 70 Units subcutaneously every morning. cholecalciferol (vitamin D3) 1,250 mcg (50,000 unit) capsule 1,250 mcg PO QWEEK Rx Instructions: sunday metoclopramide HCl [Reglan] 10 mg tablet 10 mg PO 4X/DAY PRN PRN (Reason: nausea and vomiting) Qty: 40 0RF ondansetron 4 mg tablet,disintegrating 4 mg PO Q8H PRN (Reason: nausea and vomiting) Qty: 14 0RF (DME) FreeStyle Chirag 2 [place] Misc See Rx Instructions .ROUTE .MEDSUPPLY Qty: 1 0RF Rx Instructions: As directed (DME) FreeStyle Chirag 2 Sensor Kit See Rx Instructions .ROUTE .MEDSUPPLY Qty: 2 1RF Rx Instructions: As directed Trulicity 4.5 mg/0.5 mL pen injector 4.5 mg subcut QWEEK Qty: 2 3RF loratadine 10 mg tablet 10 mg PO DAILY Qty: 90 0RF losartan 100 mg tablet 100 mg PO DAILY Qty: 90 1RF metformin 500 mg tablet 1,000 mg PO BIDCM Qty: 90 1RF omeprazole 40 mg capsule,delayed release(DR/EC) 40 mg PO DAILY Qty: 90 0RF Primary Care Provider: Yazmin Ludwig Referrals: Yazmin Ludwig MD [Primary Care Provider] - As Needed Disposition Disposition: Home, Self Care
[2022-05-08 14:08] LABS: Bacteria 0 SEEN /hpf (None Seen); Mucous, Urine 0 SEEN /hpf (<or=2+); Red Blood Cells-Urine 0 SEEN /hpf (0-5); Squamous Epithelial Cells - UA 0 SEEN /hpf (5-10); White Blood Cells 0 SEEN /hpf (0-5)
[2022-05-08 14:16] LABS: Color, Urine Yellow (Yellow); Glucose, Dipstick Normal (Normal); Ketone-Dipstick Negative (Negative); Leukocyte Esterase-Dipstick 25 /ul (Negative); Nitrite-Dipstick Negative (Negative); Occult Blood-Urine Negative /ul (Negative); Protein-Dipstick Negative (Negative); Urine Bilirubin Dipstick Negative (Negative); Urine Clarity Clear (Clear); Urine Urobilinogen Normal (Normal)
[2022-05-08 14:46] VITALS: PULSE 75; RESP 16; O2SAT 97
== END 2022-05-08 14:47 | disposition home or self-care (01) ==
PROVIDERS: Emergency Provider Emergency Medicine; PCP Internal Medicine; Visit Provider Emergency Medicine
DX: E11.65 Type 2 diabetes mellitus with hyperglycemia (principal); E11.42 Type 2 diabetes mellitus with diabetic polyneuropathy; Z79.4 Long term (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 of insulin; R19.7 Diarrhea, unspecified; E86.0 Dehydration; R11.2 Nausea with vomiting, unspecified; I10 Essential (primary) hypertension; Z79.899 Other long term (current) drug therapy; Z79.84 Long term (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 of oral hypoglycemic drugs; M79.7 Fibromyalgia; F17.210 Nicotine dependence, cigarettes, uncomplicated
CPT/HCPCS: 80048; 81001; 85025; 96361; 96374; 96375; 99283; J7030

== ENCOUNTER 2022-07-19 01:37 | Emergency (ER) | payer MEDICARE, MEDICAID, SELFPAY ==
[2022-07-19 01:37] VITALS: BP 205/123; PULSE 94; RESP 20; TEMP 35.5; O2SAT 100; BMI 32.6
--- NOTE | 2022-07-19 01:38 | EKG12_ITS ---
Test Reason : DYSRHYTHMIA Blood Pressure : / mmHG Vent. Rate : 091 BPM Atrial Rate : 091 BPM P-R Int : 146 ms QRS Dur : 090 ms QT Int : 350 ms P-R-T Axes : 043 025 037 degrees QTc Int : 430 ms Normal sinus rhythm Normal ECG Confirmed by MARTINE WELLS, FRANCISCO ([id number]), loan expeditor KELLY CASTRO ([id number]) on 07/19/2022 8:58:23 AM Referred By: BB Confirmed By:FRANCISCO FARLEY MD
--- NOTE | 2022-07-19 01:39 | EDS_ITS ---
HPI History of Present Illness Chief Complaint: Hypertension Informant: patient Onset/Context/Timing Onset: Yesterday (24 hours or more) Context: Gradual Onset Timing: Waxes and wanes Quality: Dizziness/lightheadedness, nausea/vomiting Current Severity: Moderate Maximum Severity: Moderate Worsened by: When blood pressure is high Relieved by: When blood pressure is lower Narrative Narrative: Patient states she has a history of autonomic dysfunction due to polyneuropathy related to diabetes that has been poorly controlled, she frequently has drastically uncontrolled blood pressure numbers, sometimes she will be 118 systolic another time she will be in the 170s. She states yesterday she started feeling nauseated and dizzy and poor, she checked her blood pressure and it was in the 170s. She was feeling better when she woke up after going to bed but still poorly, then tonight she was feeling worse her blood pressure was in the 170-190 range, she vomited and checked it again and it was 205/123. She denies headache. She denies chest pain or shortness of breath. She denies abdominal pain. No syncope. She states she has been referred to the autonomic dysfunction clinic at [facility] but has not been seen there yet. Her doctors have had a very difficult time regulating her blood pressure, she states for example they will add a medication because it is very high in the office and then the next day she checks it and it is 120 or lower and she is told not to take the medication. [facility] Medical History Anxiety and depression Bipolar disorder Craniofacial hyperhidrosis Diabetes Fibromyalgia Gastroparesis Hemoglobin A1c greater than 9.0% History of necrotising fasciitis History of venous thromboembolism HTN (hypertension) Hydradenitis Hypertension Hypertension Lactose intolerance in adult Obesity Open wound of vulva Polycystic ovary Polyneuropathy due to type 2 diabetes mellitus Type 2 diabetes mellitus Vulvar abscess Vulvar ulcer Home Medications insulin lispro 100 unit/mL subcutaneous cartridge 20 unit SQ TID diabetes 12/05/18 [History Last Taken 12/18/21] gauze bandage 4 1/2 X 147 (Kerlix) #12 ea 01/21/21 [Rx Last Taken Unknown] albuterol sulfate 90 mcg/actuation aerosol inhaler 1 inh inhalation PRN PRN Shortness Of Breath 08/09/21 [History Last Taken Unknown] gabapentin 300 mg capsule 600 mg PO DAILY nerve pain 08/09/21 [History Last Taken 12/18/21] flash glucose scanning reader ([employer]Style Chirag 2 [place]) #1 ea 09/02/21 [Rx Last Taken Unknown] cholecalciferol (vitamin D3) 1,250 mcg (50,000 unit) capsule 1,250 mcg PO QWEEK supplement 12/18/21 [History Last Taken 12/15/21] gabapentin 300 mg capsule 900 mg PO QHS nerve pain 12/18/21 [History Last Taken 12/17/21] insulin degludec 100 unit/mL (3 mL) subcutaneous pen (Tresiba FlexTouch U-100 insulin) 40 unit subcut DAILY diabetes 12/18/21 [History Last Taken 12/18/21] biotin 1 mg capsule 1 mg PO DAILY 01/06/22 [History Last Taken Unknown] lactobacillus combination no.9 4 billion cell capsule (Adult 50 Plus Probiotic) 4,000 mmu cells PO DAILY 01/06/22 [History Last Taken Unknown] multivitamin 1 tab PO DAILY 01/06/22 [History Last Taken Unknown] flash glucose sensor (FreeStyle Chirag 2 Sensor kit) #2 ea 01/09/22 [Rx Last Taken Unknown] topiramate 50 mg tablet 50 mg PO 01/31/22 [History Last Taken Unknown] loratadine 10 mg tablet 10 mg PO DAILY allergies #90 tabs 04/18/22 [Rx Last Taken Unknown] metformin 500 mg tablet 1,000 mg PO BIDCM diabetes #90 tabs 04/18/22 [Rx Last Taken Unknown] omeprazole 40 mg capsule,delayed release 40 mg PO DAILY GERD #90 caps 04/18/22 [Rx Last Taken Unknown] dulaglutide 3 mg/0.5 mL subcutaneous pen injector 3 mg (0.5 mL) subcut QWEEK diabetes #2 mL 05/19/22 [Rx Last Taken Unknown] losartan 100 mg-hydrochlorothiazide 12.5 mg tablet 1 tab PO DAILY #30 tabs 05/19/22 [Rx Last Taken Unknown] metoclopramide HCl 10 mg tablet (Reglan) 10 mg PO 4X/DAY PRN PRN nausea and vomiting #40 tabs 05/19/22 [Rx Last Taken Unknown] ondansetron 4 mg disintegrating tablet 4 mg PO Q8H PRN nausea and vomiting #30 tabs 05/19/22 [Rx Last Taken Unknown] polyethylene glycol 3350 17 gram/dose oral powder (Miralax) 4 g PO DAILY #850 grams 05/19/22 [Rx Last Taken Unknown] amlodipine 5 mg tablet 5 mg PO DAILY #30 tabs 06/19/22 [Rx Last Taken Unknown] Allergy/AdvReac Type Severity Reaction Status Date / Time doxycycline Allergy Severe rash Verified 07/19/22 02:04 amoxicillin [Amoxicillin] Allergy Unknown Verified 07/19/22 02:04 asenapine maleate Allergy Unknown Verified 07/19/22 02:04 [From Saphris] cephalexin AdvReac Intermediate upset Verified 07/19/22 02:04 stomach Family History Mother Hypertension Brain aneurysm Father Diabetes Hypertension Grandmother Cancer liver throat kidney Diabetes Hypertension Heart disease CVA (cerebral vascular accident) Breast cancer Grandfather Kidney disease Hypertension CVA (cerebral vascular accident) Surgical History H/O lateral meniscus repair of left knee Social History household members: spouse Smoking Status: Current every day smoker tobacco type: cigarettes alcohol intake: never substance use type: does not use caffeine: Yes frequency: 5-6 times per week seatbelt use: always do you feel safe at home: Yes additional social history: Jonathan- Unemployed Patient is on disability [facility] ED Constitutional Constitutional ED: Reports malaise; Denies chills or fever(s) Eyes Eyes: Denies change in vision or diplopia ENT ENT ED: Denies rhinorrhea or sore throat Cardiovascular Cardiovascular: Reports lightheadedness; Denies chest pain or palpitations Respiratory/Chest Respiratory/Chest: Denies cough or dyspnea Gastrointestinal Gastrointestinal: Reports nausea and vomiting; Denies abdominal pain or diarrhea Genitourinary Genitourinary ED: Denies dysuria or hematuria Musculoskeletal Musculoskeletal: Denies back pain or neck pain Integumentary Denies abscess or rash Neurologic Neurologic: Denies headache(s), paresthesias or weakness Psychiatric Psychiatric: Denies anxiety or suicidal thoughts EXAM Physical Exam Const Vital Signs: 07/19/22 01:37 07/19/22 01:37 07/19/22 01:56 Temperature 96 F L Temperature Source Temporal Pulse Rate 94 97 Respiratory Rate 20 H 17 Respiratory Pattern Normal Blood Pressure 205/123 H 187/111 H Blood Pressure Mean 150 136 Pulse Ox 100 100 Oxygen Delivery Method Room Air Room Air 07/19/22 03:04 Temperature Temperature Source Pulse Rate 96 Respiratory Rate 18 Respiratory Pattern Blood Pressure 167/86 H Blood Pressure Mean 113 Pulse Ox 94 Oxygen Delivery Method Room Air Positive well nourished and well developed General Appearance ED: well developed and NAD HEENT Reports moist mucous membranes normocephalic and atraumatic Eyes PERRL and EOMs intact bilaterally Neck full ROM and supple Resp normal respiratory effort and clear to auscultation bilaterally Cardio regular rate, regular rhythm and no murmurs GI non-tender and non-distended Auscultation: normoactive bowel sounds Palpation: soft Back/Spine no CVA tenderness General Back: other FROM Extremity normal to inspection General Extremety ED: Negative for edema, pulses abnormal or tenderness General Extremity: Negative for edema or pulses abnormal Neuro oriented x3, CN's II-XII intact bilaterally and no sensory deficits noted Sensorium / Orientation: awake and alert Motor Exam: strength 5/5 throughout Skin no rashes or lesions noted and no wounds MDM MDM MDM Narrative Medical decision making narrative: Patient was given hydralazine 20 mg as well as Zofran. Work-up is negative including renal function and cardiac EKG/troponin. Her blood pressure gradually came down, currently 167/86 and (SBP 155 at discharge) after being 205/123. Initially her nausea was not better after the Zofran, then the patient states maybe this is related to her gastroparesis and not her blood pressure so in ag reement, I gave her a dose of Reglan which did help some. At this time I think she is stable to be discharged home and follow-up with her doctor or the dysautonomia clinic she was referred to. I am not can change any of her blood pressure prescriptions at home. Lab Data Attestation: I reviewed the patient's lab results. Labs: Laboratory Results - last 24 hr 07/19/22 07/19/22 01:55 01:55 WBC 10.7 RBC 5.42 H Hgb 15.6 H Hct 47.0 MCV 86.7 MCH 28.8 MCHC 33.2 RDW Std Deviation 42.6 RDW Coeff of Amada 13.5 Plt Count 193 MPV 13.0 H Immature Gran % (Auto) 0.300 Neut % (Auto) 66.6 Lymph % (Auto) 22.1 [place] % (Auto) 6.6 Eos % (Auto) 3.8 Baso % (Auto) 0.6 Absolute Neuts (auto) 7.1 Absolute Lymphs (auto) 2.35 Nucleated RBC % 0 Sodium 138 Potassium 3.9 Chloride 102 Carbon Dioxide 32.0 Anion Gap 4 L BUN 16 Creatinine 1.00 Estim Creat Clear Calc 76.19 Est GFR (MDRD) Af Amer 79 Est GFR (MDRD) Non-Af 66 BUN/Creatinine Ratio 16.0 Glucose 246 H Calcium 9.3 Troponin I High Sens < 3 L Rhythm Strip Rhythm Strip: Sinus Rhythm Rate: 90 Ectopy: None EKG Initial EKG: Attestation: I personally reviewed and interpreted this EKG as follows: Interpretation: Sinus Rhythm and No Acute Injury Pattern Comments: normal EKG Discharge Plan Triage Chief Complaint: Hypertension ED Provider: Willis Anne Dx/Rx/DC Orders Clinical Impression: Episode of hypertension, Gastroparesis, Dysautonomia, Nausea Instructions: Controlling High Blood Pressure Prescriptions: No Action gabapentin 300 mg capsule 600 mg PO DAILY Label Comments: TAKE 1 CAPSULE BY MOUTH TWICE DAILY albuterol sulfate 90 mcg/actuation HFA aerosol inhaler 1 inh inhalation PRN PRN (Reason: Shortness Of Breath) Label Comments: inhale 2 puffs every 4 hours as needed for wheezing and shortness of breath biotin 1 mg capsule 1 mg PO DAILY multivitamin Tablet 1 tab PO DAILY Adult 50 Plus Probiotic 4 billion cell capsule 4,000 mmu cells PO DAILY topiramate 50 mg tablet 50 mg PO Label Comments: Take 1 tablet by mouth daily at bedtime. losartan-hydrochlorothiazide 100-12.5 mg tablet 1 tab PO DAILY Qty: 30 1RF polyethylene glycol 3350 [Miralax] 17 gram/dose powder 4 g PO DAILY Qty: 850 1RF metoclopramide HCl [Reglan] 10 mg tablet 10 mg PO 4X/DAY PRN PRN (Reason: nausea and vomiting) Qty: 40 0RF Trulicity 3 mg/0.5 mL pen injector 3 mg subcut QWEEK Qty: 2 3RF ondansetron 4 mg tablet,disintegrating 4 mg PO Q8H PRN (Reason: nausea and vomiting) Qty: 30 0RF insulin lispro 100 UNIT/ML cartridge 20 unit SQ TID Rx Instructions: Sliding scale (DME) Kerlix 4 1/2 X 147 bandage See Rx Instructions .ROUTE .MEDSUPPLY Qty: 12 3RF Rx Instructions: apply to wound daily gabapentin 300 mg capsule 900 mg PO QHS Label Comments: TAKE 1 (ONE) capsule in the morning and 3 (THREE) CAPSULES AT BEDTIME Tresiba FlexTouch U-100 100 unit/mL (3 mL) insulin pen 40 unit SUBCUT DAILY Label Comments: Inject 70 Units subcutaneously every morning. cholecalciferol (vitamin D3) 1,250 mcg (50,000 unit) capsule 1,250 mcg PO QWEEK Rx Instructions: sunday (DME) FreeStyle Chirag 2 [place] Misc See Rx Instructions .ROUTE .MEDSUPPLY Qty: 1 0RF Rx Instructions: As directed (DME) FreeStyle Chirag 2 Sensor Kit See Rx Instructions .ROUTE .MEDSUPPLY Qty: 2 1RF Rx Instructions: As directed loratadine 10 mg tablet 10 mg PO DAILY Qty: 90 0RF metformin 500 mg tablet 1,000 mg PO BIDCM Qty: 90 1RF omeprazole 40 mg capsule,delayed release(DR/EC) 40 mg PO DAILY Qty: 90 0RF amlodipine 5 mg tablet 5 mg PO DAILY Qty: 30 5RF Primary Care Provider: Yazmin Ludwig Referrals: Yazmin Ludwig MD [Primary Care Provider] - As soon as possible (or dysautonomia clinic [facility]) Disposition Disposition: Home, Self Care
[2022-07-19 01:56] VITALS: BP 187/111; PULSE 97; RESP 17; O2SAT 100
[2022-07-19] MEDS: hydrALAZINE 20 MG/ML Vial IV (01:56)
[2022-07-19] MEDS: Ondansetron 4 MG/2 ML Vial IV (01:57)
[2022-07-19 02:05] LABS: Absolute Lymphocyte Count 2.35 X10^3/uL (0.83-4.51); Absolute Neutrophil Count 7.1 X10^3/uL (2.0-7.7); Basophil# 0.06 X10^3/uL; Basophil% 0.6 % (0-1); Eosinophil# 0.41 X10^3/uL; Eosinophils% 3.8 % (0-5); Hemoglobin 15.6 g/dL (12.0-15.0); Lymphocyte # 2.35 X10^3/ul (0.83-4.51); Lymphocyte % 22.1 % (19-41); Mean Corp Hgb Conc 33.2 g/dL (32-36); Mean Corpuscular Hgb 28.8 pg (27.0-32.0); Mean Corpuscular Volume 86.7 fL (81-99); Monocyte% 6.6 % (0-10); NRBC Flagged by Analyzer 0 % (0-5); Neutrophil % 66.6 % (47-70); Platelet Count 193 K/mm3 (150-450); RBC Distribution Width CV 13.5 % (11.6-14.6); RBC Distribution Width SD 42.6 fl (35.1-43.9); Red Blood Count 5.42 M/mm3 (4.2-5.4); White Blood Count 10.7 K/mm3 (4.4-11.0)
[2022-07-19 02:22] LABS: Anion Gap 4 (5-15); BUN 16 mg/dL (7-18); Calcium,Total 9.3 mg/dL (8.5-10.1); Chloride 102 mmol/L (98-107); EST Glomerular Filtration Rate 66 mL/min (>60); Est Glom Filt Rate - Afr Amer 79 mL/min (>60); Estimated Creatinine Clearance 76.19 ml/min; Glucose 246 mg/dL (74-106); Potassium 3.9 mmol/L (3.5-5.1); Sodium Level 138 mmol/L (136-145); Troponin-I HS < 3 pg/mL (3.0-54.0)
[2022-07-19 03:04] VITALS: BP 167/86; PULSE 96; RESP 18; O2SAT 94
[2022-07-19] MEDS: Metoclopramide 10 MG/2 ML Vial 5 MG IV (03:06)
[2022-07-19 03:55] VITALS: BP 151/77; PULSE 96; RESP 18; O2SAT 95
== END 2022-07-19 03:56 | disposition home or self-care (01) ==
PROVIDERS: Emergency Provider Emergency Medicine; PCP Internal Medicine; Visit Provider Emergency Medicine
DX: I10 Essential (primary) hypertension (principal); K31.84 Gastroparesis; G90.9 Disorder of the autonomic nervous system, unspecified; R11.0 Nausea; F17.210 Nicotine dependence, cigarettes, uncomplicated
CPT/HCPCS: 80048; 84484; 85025; 93005; 96374; 96375; 99284; A4216; J2405

== ENCOUNTER → 2022-09-07 | Outpatient (CLI) | payer MEDICARE, MEDICAID, SELFPAY ==
[2022-09-07 12:25] LABS: Absolute Lymphocyte Count 2.03 X10^3/uL (0.83-4.51); Absolute Neutrophil Count 5.9 X10^3/uL (2.0-7.7); Basophil# 0.05 X10^3/uL; Basophil% 0.6 % (0-1); Eosinophil# 0.27 X10^3/uL; Eosinophils% 3.1 % (0-5); Hematocrit 42.9 % (37-47); Hemoglobin 14.6 g/dL (12.0-15.0); Lymphocyte # 2.03 X10^3/ul (0.83-4.51); Lymphocyte % 23.3 % (19-41); Mean Corpuscular Hgb 28.7 pg (27.0-32.0); Mean Corpuscular Volume 84.4 fL (81-99); Mean Platelet Vol. 13.8 fl (6.2-12.0); Monocyte# 0.45 X10^3/uL; Monocyte% 5.2 % (0-10); NRBC Flagged by Analyzer 0 % (0-5); Neutrophil # 5.91 X10^3/uL (2.7-7.7); Neutrophil % 67.6 % (47-70); POSITIVE COUNT YES; RBC Distribution Width CV 13.2 % (11.6-14.6); RBC Distribution Width SD 40.8 fl (35.1-43.9); Red Blood Count 5.08 M/mm3 (4.2-5.4); White Blood Count 8.7 K/mm3 (4.4-11.0)
[2022-09-07 12:47] LABS: Differential Indicated SCAN CRITERIA MET
[2022-09-07 12:48] LABS: Platelet Estimate ADEQUATE (ADEQ)
[2022-09-07 13:12] LABS: ALB/GLOB Ratio 0.9 RATIO (0.9-2.4); AST(SGOT) 10 U/L (15-37); Alanine Aminotransfer ALT/SGPT 17 U/L (13-56); Albumin, Serum 3.3 g/dL (3.2-5.0); Alkaline Phosphatase 57 U/L (45-117); Anion Gap 5 (5-15); BUN 13 mg/dL (7-18); BUN/Creat Ratio 19.9 RATIO (10-20); Calcium,Total 8.6 mg/dL (8.5-10.1); Chloride 106 mmol/L (98-107); Creatinine, Serum 0.65 mg/dL (0.55-1.02); EST Glomerular Filtration Rate 107 mL/min (>60); Est Glom Filt Rate - Afr Amer 130 mL/min (>60); Globulin 3.5 g/dL (2.2-4.2); Glucose 437 mg/dL (74-106); Potassium 4.6 mmol/L (3.5-5.1); Protein, Total 6.8 g/dL (6.4-8.2); Sodium Level 134 mmol/L (136-145)
== END | disposition home or self-care (01) ==
LOC: BIMLAB 10:52
PROVIDERS: PCP Internal Medicine; Referring Provider Physician Assistant; Visit Provider Physician Assistant
DX: Z86.718 Personal history of other venous thrombosis and embolism (principal); R11.2 Nausea with vomiting, unspecified; R19.7 Diarrhea, unspecified; L02.91 Cutaneous abscess, unspecified
CPT/HCPCS: 36415; 80053; 85025; 87070; 87077; 87186; 87205

== ENCOUNTER → 2022-10-05 | Outpatient (CLI) | payer MEDICARE, MEDICAID, SELFPAY ==
[2022-10-05 12:27] LABS: Vitamin B12 469 pg/mL (211-911)
[2022-10-05 12:31] LABS: Ferritin 31 ng/mL (8-252); Iron 43 ug/dL (50-170); Iron Binding Capacity,Total 276 ug/dL (250-450); PERCENT IRON SATURATION 15.6 % (15.0-55.0); Thyroid Stim Hormone (TSH) 2.41 uIU/mL (0.358-3.74)
[2022-10-06 15:09] LABS: Endomysial Antibody IgA Negative (Negative)
[2022-10-06 15:57] LABS: Immunoglobulin A 223 mg/dL (87-352); t-Transglutaminase IgA <2 U/mL (0-3)
[2022-10-09 18:54] LABS: Methylmalonic Acid Bld 195 nmol/L (0-378)
[2022-10-10 14:09] LABS: Free Kappa Light Chains 29.1 mg/L (3.3-19.4); Immunoglobulin A 226 mg/dL (87-352); Immunoglobulin G 1071 mg/dL (586-1602); Immunoglobulin M 59 mg/dL (26-217)
[2022-10-10 15:18] LABS: Copper, Serum or Plasma 116 ug/dL (80-158); VITAMIN B6 1.6 ug/L (3.4-65.2)
== END | disposition home or self-care (01) ==
PROVIDERS: PCP Internal Medicine
DX: G90.1 Familial dysautonomia [Riley-Day] (principal); E11.43 Type 2 diabetes mellitus with diabetic autonomic (poly)neuropathy; E11.65 Type 2 diabetes mellitus with hyperglycemia; Z79.4 Long term (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 of insulin; R42 Dizziness and giddiness; K31.84 Gastroparesis; R29.818 Other symptoms and signs involving the nervous system; R09.89 Other specified symptoms and signs involving the circulatory and respiratory systems; Z11.4 Encounter for screening for human immunodeficiency virus [HIV]; I10 Essential (primary) hypertension; E88.81 Metabolic syndrome and other insulin resistance
CPT/HCPCS: 36415; 82525; 82607; 82728; 82784; 83516; 83540; 83550; 83883; 83921; 84207; 84425; 84443; 86255; 86334

== ENCOUNTER 2022-11-12 14:40 | Emergency (ER) | payer MEDICARE, MEDICAID, SELFPAY ==
[2022-11-12 14:42] VITALS: BP 154/104; PULSE 97; RESP 22; TEMP 35.8; O2SAT 97; BMI 32.1
[2022-11-12 14:45] VITALS: BP 154/104; PULSE 97; RESP 22; TEMP 35.8; O2SAT 97
--- NOTE | 2022-11-12 15:29 | EX.ED.DYSGE1 ---
HPI History of Present Illness Chief Complaint: Weakness Informant: patient Narrative Narrative: Patient presents with multiple complaints related to autonomic dystonia. She was diagnosed with this years ago and states she has pain every day. She complains of increased pain today, specifically headache and intermittent sharp chest pain. She also has pain to the right upper quadrant that wraps around to the right flank region. She states she has chronic constipation and vomiting. She feels as if she does not empty her bladder. She tried Zofran at home without improvement. [facility] Medical History Anxiety and depression Bipolar disorder Craniofacial hyperhidrosis Diabetes Fibromyalgia Gastroparesis Hemoglobin A1c greater than 9.0% History of necrotising fasciitis History of venous thromboembolism HTN (hypertension) Hydradenitis Hypertension Lactose intolerance in adult Necrotizing fasciitis Obesity Open wound of vulva Polycystic ovary Polyneuropathy due to type 2 diabetes mellitus Type 2 diabetes mellitus Vulvar abscess Vulvar ulcer Home Medications albuterol sulfate 90 mcg/actuation aerosol inhaler 1 inh inhalation PRN PRN Shortness Of Breath 08/09/21 [History Last Taken Unknown] gabapentin 300 mg capsule 600 mg PO DAILY nerve pain 08/09/21 [History Last Taken 12/18/21] flash glucose scanning reader (159.comStyle Chirag 2 [place]) #1 ea 09/02/21 [Rx Last Taken Unknown] cholecalciferol (vitamin D3) 1,250 mcg (50,000 unit) capsule 1,250 mcg PO QWEEK supplement 12/18/21 [History Last Taken 12/15/21] gabapentin 300 mg capsule 900 mg PO QHS nerve pain 12/18/21 [History Last Taken 12/17/21] biotin 1 mg capsule 1 mg PO DAILY 01/06/22 [History Last Taken Unknown] lactobacillus combination no.9 4 billion cell capsule (Adult 50 Plus Probiotic) 4,000 mmu cells PO DAILY 01/06/22 [History Last Taken Unknown] multivitamin 1 tab PO DAILY 01/06/22 [History Last Taken Unknown] flash glucose sensor (Splashscoreyle Chirag 2 Sensor kit) #2 ea 01/09/22 [Rx Last Taken Unknown] topiramate 50 mg tablet 50 mg PO 01/31/22 [History Last Taken Unknown] loratadine 10 mg tablet 10 mg PO DAILY allergies #90 tabs 04/18/22 [Rx Last Taken Unknown] metformin 500 mg tablet 1,000 mg PO BIDCM diabetes #90 tabs 04/18/22 [Rx Last Taken Unknown] omeprazole 40 mg capsule,delayed release 40 mg PO DAILY GERD #90 caps 04/18/22 [Rx Last Taken Unknown] dulaglutide 3 mg/0.5 mL subcutaneous pen injector 3 mg (0.5 mL) subcut QWEEK diabetes #2 mL 05/19/22 [Rx Last Taken Unknown] polyethylene glycol 3350 17 gram/dose oral powder (Miralax) 4 g PO DAILY #850 grams 05/19/22 [Rx Last Taken Unknown] hydrochlorothiazide 12.5 mg tablet 12.5 mg PO QAM #90 tabs 09/04/22 [Rx Last Taken Unknown] losartan 50 mg tablet 50 mg PO BID #180 tabs 09/04/22 [Rx Last Taken Unknown] amoxicillin 875 mg-potassium clavulanate 125 mg tablet 1 tab PO BID #14 tabs 09/11/22 [Rx Last Taken Unknown] ondansetron 4 mg disintegrating tablet 4 mg PO Q8H PRN nausea and vomiting #30 tabs 09/13/22 [Rx Last Taken Unknown] Tresiba FlexTouch U-100 100 unit/mL (3 mL) subcutaneous pen (insulin degludec) 70 unit (0.7 mL) subcut DAILY diabetes #21 mL 09/14/22 [Rx Last Taken Unknown] metoclopramide HCl 10 mg tablet (Reglan) 10 mg PO 4X/DAY PRN PRN nausea and vomiting #40 tabs 10/04/22 [Rx Last Taken Unknown] promethazine 25 mg tablet 25 mg PO TID PRN nausea and vomiting #10 tabs 11/12/22 [Rx Last Taken Unknown] Allergy/AdvReac Type Severity Reaction Status Date / Time doxycycline Allergy Severe rash Verified 09/07/22 10:00 amoxicillin [Amoxicillin] Allergy Unknown Verified 09/07/22 10:00 asenapine maleate Allergy Unknown Verified 09/07/22 10:00 [From Saphris] cephalexin AdvReac Intermediate upset Verified 09/07/22 10:00 stomach Family History Mother Hypertension Brain aneurysm Father Diabetes Hypertension Grandmother Cancer liver throat kidney Diabetes Hypertension Heart disease CVA (cerebral vascular accident) Breast cancer Grandfather Kidney disease Hypertension CVA (cerebral vascular accident) Surgical History H/O lateral meniscus repair of left knee Social History household members: spouse Smoking Status: Current every day smoker tobacco type: cigarettes alcohol intake: never substance use type: does not use caffeine: Yes frequency: 5-6 times per week seatbelt use: always do you feel safe at home: Yes additional social history: Jonathan- Unemployed Patient is on disability ROS ROS ED Constitutional Constitutional ED: Denies chills or fever(s) Eyes Eyes: Denies change in vision or discharge from eye(s) ENT ENT ED: Denies discharge from eye(s), rhinorrhea or sore throat Cardiovascular Cardiovascular: Reports chest pain; Denies palpitations Respiratory/Chest Respiratory/Chest: Denies cough or dyspnea Gastrointestinal Gastrointestinal: Reports abdominal pain, constipation, nausea and vomiting; Denies diarrhea Genitourinary Genitourinary ED: Denies dysuria Musculoskeletal Musculoskeletal: Reports back pain; Denies extremity pain Integumentary Denies Abrasions or rash Neurologic Neurologic: Reports headache(s) and weakness Psychiatric Psychiatric: Reports anxiety; Denies depression Allergic/Immunologic Allergic/Immunologic ED: Denies lip swelling or urticaria EXAM Physical Exam Const Vital Signs: 11/12/22 14:42 11/12/22 14:45 11/12/22 15:23 Temperature 96.4 F L 96.4 F L Temperature Source Temporal Temporal Pulse Rate 97 97 Respiratory Rate 22 H 22 H Respiratory Effort Normal Non-Labored Respiratory Pattern Normal Blood Pressure 154/104 H 154/104 H Blood Pressure Mean 120 120 Pulse Ox 97 97 Oxygen Delivery Method Room Air Room Air 11/12/22 17:00 Temperature Temperature Source Pulse Rate 89 Respiratory Rate 16 Respiratory Effort Respiratory Pattern Blood Pressure 150/73 H Blood Pressure Mean 98 Pulse Ox 99 Oxygen Delivery Method Positive well nourished and well developed General Appearance ED: well developed HEENT Reports normocephalic and head/scalp atraumatic Eyes PERRL and EOMs intact bilaterally Neck supple Chest Wall inspection of chest normal and palpation of chest normal Resp normal respiratory effort and clear to auscultation bilaterally Cardio regular rate and regular rhythm GI GI Narrative: Mild right upper quadrant tenderness palpation. No guarding or rebound. Palpation: soft Extremity normal to inspection Neuro oriented x3 and no sensory deficits noted Sensorium / Orientation: alert Motor Exam: strength 5/5 throughout Psych Mood & Affect: anxious Skin no rashes or lesions noted MDM MDM MDM Narrative Medical decision making narrative: Patient placed on vehicle monitor technician. Labwork obtained to evaluate for leukocytosis, anemia, and electrolyte derangement. EKG obtained to evaluate for cardiac arrhythmia/ischemia. Urinalysis obtained to evaluate for infection/hematuria. CTA of the head and neck obtained given her headaches and family history of aneurysm. Patient was given Toradol, Reglan, Benadryl, and IV fluids for her migraine. Lab Data Attestation: I reviewed the patient's lab results. Labs: Laboratory Results - last 24 hr 11/12/22 11/12/22 11/12/22 15:45 15:45 15:45 WBC 6.8 RBC 4.96 Hgb 14.4 Hct 42.2 MCV 85.1 MCH 29.0 MCHC 34.1 RDW Std Deviation 41.1 RDW Coeff of [place] 13.2 Plt Count 106 L MPV 14.1 H Immature Gran % (Auto) 0.400 Neut % (Auto) 81.9 H Lymph % (Auto) 8.0 L [place] % (Auto) 8.1 Eos % (Auto) 1.3 Baso % (Auto) 0.3 Absolute Neuts (auto) 5.6 Absolute Lymphs (auto) 0.54 L Nucleated RBC % 0 Differential Comment SCANNED D-Dimer Quant (PE/DVT) 0.49 Sodium 131 L Potassium 4.1 Chloride 104 Carbon Dioxide 22.0 Anion Gap 5 BUN 15 Creatinine 0.59 Estim Creat Clear Calc 129.14 Est GFR (MDRD) Af Amer 145 Est GFR (MDRD) Non-Af 120 BUN/Creatinine Ratio 25.3 H Glucose 296 H Calcium 7.8 L Total Bilirubin 0.90 Direct Bilirubin 0.25 AST 14 L ALT 21 Alkaline Phosphatase 58 Troponin I High Sens < 3 L Total Protein 6.4 Albumin 3.0 L Globulin 3.4 Lipase 67 L Serum , Qual Urine Color Urine Clarity Urine pH Ur Specific [place] Urine Protein Urine Glucose (UA) Urine Ketones Urine Occult Blood Urine Nitrite Urine Bilirubin Urine Urobilinogen Ur Leukocyte Esterase Urine RBC Urine WBC Ur Squamous Epith Cells Amorphous Sediment Urine Bacteria Urine Mucus 04/09/23 04/09/23 15:45 17:13 WBC RBC Hgb Hct MCV MCH MCHC RDW Std Deviation RDW Coeff of [place] Plt Count MPV Immature Gran % (Auto) Neut % (Auto) Lymph % (Auto) [place] % (Auto) Eos % (Auto) Baso % (Auto) Absolute Neuts (auto) Absolute Lymphs (auto) Nucleated RBC % Differential Comment D-Dimer Quant (PE/DVT) Sodium Potassium Chloride Carbon Dioxide Anion Gap BUN Creatinine Estim Creat Clear Calc Est GFR (MDRD) Af Amer Est GFR (MDRD) Non-Af BUN/Creatinine Ratio Glucose Calcium Total Bilirubin Direct Bilirubin AST ALT Alkaline Phosphatase Troponin I High Sens Total Protein Albumin Globulin Lipase Serum , Qual NEGATIVE Urine Color Yellow Urine Clarity Sl. Cloudy Urine pH 6.0 Ur Specific [place] 1.015 Urine Protein 30 H Urine Glucose (UA) 1000 H Urine Ketones 15 H Urine Occult Blood 10 H Urine Nitrite Negative Urine Bilirubin Negative Urine Urobilinogen 4 H Ur Leukocyte Esterase Negative Urine RBC 0-5 SEEN Urine WBC 0 SEEN Ur Squamous Epith Cells 0-5 SEEN Amorphous Sediment 1+ URATE Urine Bacteria 1+ Urine Mucus 0 SEEN Radiography Diagnostic Testing: Clinical Impression(s) from Imaging Studies Head/Neck CTA 11/12/22 16:16 IMPRESSION: Normal CTA Head and neck with contrast. Electronically Signed: Samir Cabrera DO at 17:30 EDT Reading Location ID and State: [address] [place] [address] Tel [phone], Service support , EKG Initial EKG: Attestation: I personally reviewed and interpreted this EKG as follows: Interpretation: Sinus Rhythm (Sinus at 86 with no acute ischemia.) Differential Diagnosis Chest pain/SOB: pulmonary embolism Reason(s) PE less likely: Positive for D-Dimer negative, not tachycardic and not hypoxic and ACS ACS: Positive for no evidence of ACS based on cardiac biomarkers and EKG without ischemia Treatment and Re-Evaluation :: CBC was normal white count at 6.8 with hemoglobin of 14.4. Chemistry studies reveal a sodium of 131. Renal function is normal. Glucose is elevated at 296. LFTs are unremarkable. Troponin is less than 3. Lipase is normal at 67. test is negative. Urinalysis reveals no sign of acute infection. She does have a large amount of glucose in her urine. D-dimer is normal at 0.49. CTA of the head and neck reveals no acute abnormalities. On repeat evaluation patient still complains of diffuse body pain which she states she has all the time. She has Zofran and Reglan at home for nausea but this has not been controlling her symptoms. She has had Phenergan in the past but never a prescription for home. I will write her a short course that she can try to see if this improves her symptoms. At this time patient is reassured with our findings here. Return instructions are provided. Discharge Plan Triage Chief Complaint: Weakness ED Provider: Lurdes Velásquez Dx/Rx/DC Orders Clinical Impression: Migraine, Vomiting, Myalgia Instructions: ED, Migraine (Classical), ED Myalgias, ED Vomiting (Adult) Prescriptions: New promethazine 25 mg tablet 25 mg PO TID PRN (Reason: nausea and vomiting) Qty: 10 0RF No Action gabapentin 300 mg capsule 600 mg PO DAILY Label Comments: TAKE 1 CAPSULE BY MOUTH TWICE DAILY albuterol sulfate 90 mcg/actuation HFA aerosol inhaler 1 inh inhalation PRN PRN (Reason: Shortness Of Breath) Label Comments: inhale 2 puffs every 4 hours as needed for wheezing and shortness of breath biotin 1 mg capsule 1 mg PO DAILY multivitamin Tablet 1 tab PO DAILY Adult 50 Plus Probiotic 4 billion cell capsule 4,000 mmu cells PO DAILY topiramate 50 mg tablet 50 mg PO Label Comments: Take 1 tablet by mouth daily at bedtime. polyethylene glycol 3350 [Miralax] 17 gram/dose powder 4 g PO DAILY Qty: 850 1RF Trulicity 3 mg/0.5 mL pen injector 3 mg subcut QWEEK Qty: 2 3RF losartan 50 mg tablet 50 mg PO BID Qty: 180 2RF hydrochlorothiazide 12.5 mg tablet 12.5 mg PO QAM Qty: 90 2RF gabapentin 300 mg capsule 900 mg PO QHS Label Comments: TAKE 1 (ONE) capsule in the morning and 3 (THREE) CAPSULES AT BEDTIME cholecalciferol (vitamin D3) 1,250 mcg (50,000 unit) capsule 1,250 mcg PO QWEEK Rx Instructions: sunday (DME) FreeStyle Chirag 2 [place] Misc See Rx Instructions .ROUTE .MEDSUPPLY Qty: 1 0RF Rx Instructions: As directed (DME) FreeStyle Chirag 2 Sensor Kit See Rx Instructions .ROUTE .MEDSUPPLY Qty: 2 1RF Rx Instructions: As directed loratadine 10 mg tablet 10 mg PO DAILY Qty: 90 0RF metformin 500 mg tablet 1,000 mg PO BIDCM Qty: 90 1RF omeprazole 40 mg capsule,delayed release(DR/EC) 40 mg PO DAILY Qty: 90 0RF amoxicillin-pot clavulanate 875-125 mg tablet 1 tab PO BID Qty: 14 0RF ondansetron 4 mg tablet,disintegrating 4 mg PO Q8H PRN (Reason: nausea and vomiting) Qty: 30 0RF Tresiba FlexTouch U-100 100 unit/mL (3 mL) insulin pen 70 unit SUBCUT DAILY Qty: 21 3RF metoclopramide HCl [Reglan] 10 mg tablet 10 mg PO 4X/DAY PRN PRN (Reason: nausea and vomiting) Qty: 40 0RF Primary Care Provider: Yazmin Ludwig Referrals: Yazmin Ludwig MD [Primary Care Provider] - 1-2 Weeks Disposition Disposition: Home, Self Care
[2022-11-12] MEDS: 0.9% Normal Saline 1,000 ML 1000 ML IV (15:39)
[2022-11-12] MEDS: Metoclopramide 10 MG/2 ML Vial IV (15:40)
[2022-11-12] MEDS: Ketorolac 30 MG/ML Syringe IV (15:41)
[2022-11-12] MEDS: DiphenhydrAMINE 50 MG/ML Syringe 25 MG IV (15:41)
[2022-11-12 16:06] LABS: D-Dimer Quantitative (DVT/PE) 0.49 FEU/ug/m (0.27-0.49)
[2022-11-12 16:11] LABS: AST(SGOT) 14 U/L (15-37); Alanine Aminotransfer ALT/SGPT 21 U/L (13-56); Alkaline Phosphatase 58 U/L (45-117); Anion Gap 5 (5-15); BUN 15 mg/dL (7-18); BUN/Creat Ratio 25.3 RATIO (10-20); Bilirubin, Direct 0.25 mg/dL (0.00-0.30); Calcium,Total 7.8 mg/dL (8.5-10.1); Chloride 104 mmol/L (98-107); Creatinine, Serum 0.59 mg/dL (0.55-1.02); EST Glomerular Filtration Rate 120 mL/min (>60); Est Glom Filt Rate - Afr Amer 145 mL/min (>60); Estimated Creatinine Clearance 129.14 ml/min; Globulin 3.4 g/dL (2.2-4.2); Glucose 296 mg/dL (74-106); Lipase 67 U/L (73-393); Potassium 4.1 mmol/L (3.5-5.1); Protein, Total 6.4 g/dL (6.4-8.2); Sodium Level 131 mmol/L (136-145); Troponin-I HS < 3 pg/mL (3.0-54.0)
[2022-11-12 16:12] LABS: Absolute Lymphocyte Count 0.54 X10^3/uL (0.83-4.51); Absolute Neutrophil Count 5.6 X10^3/uL (2.0-7.7); Basophil# 0.02 X10^3/uL; Basophil% 0.3 % (0-1); Eosinophil# 0.09 X10^3/uL; Eosinophils% 1.3 % (0-5); Hematocrit 42.2 % (37-47); Hemoglobin 14.4 g/dL (12.0-15.0); Lymphocyte # 0.54 X10^3/ul (0.83-4.51); Mean Corp Hgb Conc 34.1 g/dL (32-36); Mean Corpuscular Volume 85.1 fL (81-99); Mean Platelet Vol. 14.1 fl (6.2-12.0); Monocyte# 0.55 X10^3/uL; Monocyte% 8.1 % (0-10); NRBC Flagged by Analyzer 0 % (0-5); Neutrophil # 5.56 X10^3/uL (2.7-7.7); Neutrophil % 81.9 % (47-70); POSITIVE DIFFERENTIAL YES; Platelet Count 106 K/mm3 (150-450); RBC Distribution Width CV 13.2 % (11.6-14.6); RBC Distribution Width SD 41.1 fl (35.1-43.9); Red Blood Count 4.96 M/mm3 (4.2-5.4); White Blood Count 6.8 K/mm3 (4.4-11.0)
[2022-11-12 16:13] LABS: Differential Indicated SCAN CRITERIA MET
[2022-11-12 16:14] LABS: Internal QC Validated? YES +Cl - CLEAR BKGD; Pregnancy, Serum, hCG Quali. NEGATIVE Negative
--- NOTE | 2022-11-12 16:16 | CT_ITS ---
STUDY: CTA HEAD AND NECK WITH CONTRAST REASON FOR EXAM: Female, 37 years old. Headache. Family history of brain aneurysm. RADIATION DOSAGE (If Supplied By Facility): CTDIvol = ( 34.36 ) mGy, DLP = ( 1516.20 ) mGycm TECHNIQUE: CT angiography was performed with a multi-detector CT scanner. Data acquisition was obtained from the skull base through the vertex following intravenous administration of IV 100mL Isovue-370. MIP images were reconstructed from the axial data set. Post-processing of the angiographic images was performed, with multiplanar reformation and 3D reconstruction. Individualized dose optimization techniques were used for this CT. COMPARISON: CT of the head, August 24, 2021. FINDINGS: Normal bilateral petrous carotid arteries. Normal right cavernous carotid artery with a normal supraclinoid bifurcation. Normal left cavernous carotid artery with a normal supraclinoid bifurcation. Normal right A1 segments of the anterior cerebral artery. Normal left A1 segments of the anterior cerebral artery. Normal intact anterior communicating artery (ACOM). Normal bilateral A2 segments of the anterior cerebral arteries. Normal right M1 and M2 segments of the middle cerebral arteries, with a normal M1 bifurcation. Normal left M1 and M2 segments of the middle cerebral arteries, with a normal M1 bifurcation. Normal right posterior communicating artery (PCOM). Normal left posterior communicating artery (PCOM). Normal bilateral vertebral arteries. Normal basilar artery with a normal basilar bifurcation. The visualized bilateral superior cerebellar (SCA) arteries are normal. Normal bilateral P1, P2 and visualized P3 segments of the posterior cerebral arteries. There is no demonstrated aneurysm of the [place]. There is no demonstrated abnormality of the visualized brain. There is no interval change from previous exam. AORTIC ARCH: Normal visualized aortic arch. Normal origins of the brachiocephalic, left common carotid, and left subclavian arteries. RIGHT CAROTID ARTERIES: Normal right common carotid artery (CCA). Normal right common carotid bulb. Normal origin of the right internal carotid (ICA) artery without a hemodynamically significant stenosis. Normal visualized cervical portion of the right internal carotid artery. Normal origin of the right external carotid artery (ECA). LEFT CAROTID ARTERIES: Normal left common carotid artery (CCA). Normal left common carotid bulb. Normal origin of the left internal carotid (ICA) artery without a hemodynamically significant stenosis. Normal visualized cervical portion of the left internal carotid artery. Normal origin of the left external carotid artery (ECA). VERTEBRAL ARTERIES: Normal bilateral vertebral arteries. CT/CTA Head AND Neck W/ Contrast IMPRESSION: Normal CTA Head and neck with contrast. Electronically Signed: Samir Cabrera DO at 17:30 EDT ,
[2022-11-12 17:00] VITALS: BP 150/73; PULSE 89; RESP 16; O2SAT 99
[2022-11-12 17:01] LABS: Differential Comment SCANNED
[2022-11-12 17:20] LABS: Mucous, Urine 0 SEEN /hpf (<or=2+); White Blood Cells 0 SEEN /hpf (0-5)
[2022-11-12 17:23] LABS: Color, Urine Yellow (Yellow); Glucose, Dipstick 1000 mg/dl (Normal); Ketone-Dipstick 15 mg/dl (Negative); Leukocyte Esterase-Dipstick Negative /ul (Negative); Nitrite-Dipstick Negative (Negative); Occult Blood-Urine 10 /ul (Negative); Protein-Dipstick 30 mg/dl (Negative); Specific Gravity, Urine 1.015 (1.002-1.030); Urine Bilirubin Dipstick Negative (Negative); Urine Clarity Sl. Cloudy (Clear); Urine Urobilinogen 4 mg/dl (Normal)
[2022-11-12 17:32] LABS: Amorphous Sediment 1+ URATE; Bacteria 1+ /hpf (None Seen); Red Blood Cells-Urine 0-5 SEEN /hpf (0-5); Squamous Epithelial Cells - UA 0-5 SEEN /hpf (5-10)
[2022-11-12 17:44] VITALS: PULSE 85; RESP 16; O2SAT 99
== END 2022-11-12 17:53 | disposition home or self-care (01) ==
PROVIDERS: Emergency Provider Emergency Medicine; PCP Internal Medicine; Visit Provider Emergency Medicine
DX: R53.1 Weakness (principal); E11.42 Type 2 diabetes mellitus with diabetic polyneuropathy; Z79.4 Long term (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 of insulin; G43.909 Migraine, unspecified, not intractable, without status migrainosus; M79.10 Myalgia, unspecified site; I10 Essential (primary) hypertension; R11.10 Vomiting, unspecified; Z79.899 Other long term (current) drug therapy; Z79.84 Long term (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 of oral hypoglycemic drugs; F17.210 Nicotine dependence, cigarettes, uncomplicated
CPT/HCPCS: 70496; 70498; 80048; 80076; 81001; 83690; 84484; 84703; 85025; 85379; 93005; 96361; 96374; 96375; 99284; J7030; Q9967; A4216

== ENCOUNTER 2022-12-11 22:06 | Emergency (ER) | payer MEDICARE, MEDICAID, SELFPAY ==
[2022-12-11 22:06] VITALS: BP 116/83; PULSE 89; RESP 18; TEMP 37.1; O2SAT 98
--- NOTE | 2022-12-11 22:09 | EKG12_ITS ---
Test Reason : DYSRHYTHMIA Blood Pressure : / mmHG Vent. Rate : 093 BPM Atrial Rate : 093 BPM P-R Int : 154 ms QRS Dur : 102 ms QT Int : 376 ms P-R-T Axes : 060 048 046 degrees QTc Int : 467 ms Normal sinus rhythm Normal ECG Confirmed by DENZEL WELLS, ESTEFANIA ([id number]), metropolitan editor KELLY CASTRO ([id number]) on 12/12/2022 1:14:29 PM Referred By: JUANCARLOS Confirmed By:SIMBA MAHONEY MD
[2022-12-11 22:10] VITALS: BP 116/83; PULSE 72; RESP 16; O2SAT 100
[2022-12-11 22:21] LABS: Absolute Lymphocyte Count 2.63 X10^3/uL (0.83-4.51); Absolute Neutrophil Count 6.9 X10^3/uL (2.0-7.7); Basophil# 0.07 X10^3/uL; Basophil% 0.7 % (0-1); Eosinophil# 0.27 X10^3/uL; Eosinophils% 2.6 % (0-5); Hematocrit 44.6 % (37-47); Hemoglobin 15.3 g/dL (12.0-15.0); Lymphocyte # 2.63 X10^3/ul (0.83-4.51); Lymphocyte % 25.1 % (19-41); Mean Corp Hgb Conc 34.3 g/dL (32-36); Mean Corpuscular Hgb 29.3 pg (27.0-32.0); Mean Corpuscular Volume 85.3 fL (81-99); Mean Platelet Vol. 12.5 fl (6.2-12.0); Monocyte# 0.58 X10^3/uL; Monocyte% 5.5 % (0-10); NRBC Flagged by Analyzer 0 % (0-5); Neutrophil # 6.91 X10^3/uL (2.7-7.7); Neutrophil % 65.8 % (47-70); Platelet Count 195 K/mm3 (150-450); RBC Distribution Width CV 13.6 % (11.6-14.6); RBC Distribution Width SD 42.1 fl (35.1-43.9); Red Blood Count 5.23 M/mm3 (4.2-5.4); White Blood Count 10.5 K/mm3 (4.4-11.0)
[2022-12-11 22:36] LABS: Prothrombin Time (Protime)PT. 13.7 SECONDS (11.7-14.9)
[2022-12-11 22:40] LABS: Anion Gap 7 (5-15); BUN 17 mg/dL (7-18); BUN/Creat Ratio 18.7 RATIO (10-20); Calcium,Total 9.1 mg/dL (8.5-10.1); Chloride 101 mmol/L (98-107); Creatinine, Serum 0.91 mg/dL (0.55-1.02); EST Glomerular Filtration Rate 73 mL/min (>60); Est Glom Filt Rate - Afr Amer 88 mL/min (>60); Glucose 367 mg/dL (74-106); Potassium 3.6 mmol/L (3.5-5.1); Sodium Level 136 mmol/L (136-145)
--- NOTE | 2022-12-11 22:43 | RAD_ITS ---
INDICATION: Stroke. EXAMINATION/TECHNIQUE: X-RAY - XR Chest 1 View COMPARISON: March 01, 2022 chest x-ray. FINDINGS: LINES/DEVICES: None. LUNGS: No consolidation, edema or effusion. No pneumothorax. MEDIASTINUM AND CARDIOVASCULAR STRUCTURES: Cardiac silhouette not enlarged. Central airways and mediastinal contour are unremarkable. BONES AND SOFT TISSUES: Unremarkable for age. RAD/Chest 1 View (Portable) IMPRESSION: No acute cardiopulmonary disease. Electronically Signed: Wilson Medina MD at 22:58 EDT ,
--- NOTE | 2022-12-12 00:13 | EX.ED.DYSGE1 ---
HPI History of Present Illness Chief Complaint: Dizziness Informant: patient Narrative Narrative: Patient presents with multiple complaints. She states the primary issue is that she started having a painful lump develop in her vagina starting yesterday much worse today no discharge or bleeding or fevers. Then while she was in the car tonight, she turned her head and had vertigo and felt off balance and nauseated, it comes back when she turns her head but now she states it is gone. She states this scared her and brought her to the emergency department but since it is gone she really is worried about the vaginal lump. She states she had an abscess somewhere nearby but not this exact problem at 1 point that turned into necrotizing fasciitis and so that is why she is concerned. She has a appointment with her HEAD TENNIS COACH for later this week regarding this. [facility] Medical History Anxiety and depression Bipolar disorder Craniofacial hyperhidrosis Diabetes Fibromyalgia Gastroparesis Hemoglobin A1c greater than 9.0% History of necrotising fasciitis History of venous thromboembolism HTN (hypertension) Hydradenitis Hypertension Lactose intolerance in adult Necrotizing fasciitis Obesity Open wound of vulva Polycystic ovary Polyneuropathy due to type 2 diabetes mellitus Type 2 diabetes mellitus Vulvar abscess Vulvar ulcer Home Medications albuterol sulfate 90 mcg/actuation aerosol inhaler 1 inh inhalation PRN PRN Shortness Of Breath 08/09/21 [History Last Taken Unknown] gabapentin 300 mg capsule 600 mg PO DAILY nerve pain 08/09/21 [History Last Taken 12/18/21] flash glucose scanning reader ([employer] Chirag 2 [place]) #1 ea 09/02/21 [Rx Last Taken Unknown] cholecalciferol (vitamin D3) 1,250 mcg (50,000 unit) capsule 1,250 mcg PO QWEEK supplement 12/18/21 [History Last Taken 12/15/21] gabapentin 300 mg capsule 900 mg PO QHS nerve pain 12/18/21 [History Last Taken 12/17/21] biotin 1 mg capsule 1 mg PO DAILY 01/06/22 [History Last Taken Unknown] lactobacillus combination no.9 4 billion cell capsule (Adult 50 Plus Probiotic) 4,000 mmu cells PO DAILY 01/06/22 [History Last Taken Unknown] multivitamin 1 tab PO DAILY 01/06/22 [History Last Taken Unknown] flash glucose sensor (FreeStyle Chirag 2 Sensor kit) #2 ea 01/09/22 [Rx Last Taken Unknown] topiramate 50 mg tablet 50 mg PO 01/31/22 [History Last Taken Unknown] loratadine 10 mg tablet 10 mg PO DAILY allergies #90 tabs 04/18/22 [Rx Last Taken Unknown] metformin 500 mg tablet 1,000 mg PO BIDCM diabetes #90 tabs 04/18/22 [Rx Last Taken Unknown] omeprazole 40 mg capsule,delayed release 40 mg PO DAILY GERD #90 caps 04/18/22 [Rx Last Taken Unknown] dulaglutide 3 mg/0.5 mL subcutaneous pen injector 3 mg (0.5 mL) subcut QWEEK diabetes #2 mL 05/19/22 [Rx Last Taken Unknown] polyethylene glycol 3350 17 gram/dose oral powder (Miralax) 4 g PO DAILY #850 grams 05/19/22 [Rx Last Taken Unknown] hydrochlorothiazide 12.5 mg tablet 12.5 mg PO QAM #90 tabs 09/04/22 [Rx Last Taken Unknown] losartan 50 mg tablet 50 mg PO BID #180 tabs 09/04/22 [Rx Last Taken Unknown] amoxicillin 875 mg-potassium clavulanate 125 mg tablet 1 tab PO BID #14 tabs 09/11/22 [Rx Last Taken Unknown] ondansetron 4 mg disintegrating tablet 4 mg PO Q8H PRN nausea and vomiting #30 tabs 09/13/22 [Rx Last Taken Unknown] Tresiba FlexTouch U-100 100 unit/mL (3 mL) subcutaneous pen (insulin degludec) 70 unit (0.7 mL) subcut DAILY diabetes #21 mL 09/14/22 [Rx Last Taken Unknown] metoclopramide HCl 10 mg tablet (Reglan) 10 mg PO 4X/DAY PRN PRN nausea and vomiting #40 tabs 10/04/22 [Rx Last Taken Unknown] promethazine 25 mg tablet 25 mg PO TID PRN nausea and vomiting #10 tabs 11/12/22 [Rx Last Taken Unknown] Allergy/AdvReac Type Severity Reaction Status Date / Time doxycycline Allergy Severe rash Verified 09/07/22 10:00 amoxicillin [Amoxicillin] Allergy Unknown Verified 09/07/22 10:00 asenapine maleate Allergy Unknown Verified 09/07/22 10:00 [From Saphris] cephalexin AdvReac Intermediate upset Verified 09/07/22 10:00 stomach Family History Mother Hypertension Brain aneurysm Father Diabetes Hypertension Grandmother Cancer liver throat kidney Diabetes Hypertension Heart disease CVA (cerebral vascular accident) Breast cancer Grandfather Kidney disease Hypertension CVA (cerebral vascular accident) Surgical History H/O lateral meniscus repair of left knee Social History household members: spouse Smoking Status: Current every day smoker tobacco type: cigarettes alcohol intake: never substance use type: does not use caffeine: Yes frequency: 5-6 times per week seatbelt use: always do you feel safe at home: Yes additional social history: Jonathan- Unemployed Patient is on disability ROS ROS ED Constitutional Constitutional ED: Denies chills or fever(s) Eyes Eyes: Denies change in vision or diplopia ENT ENT ED: Reports vertigo; Denies ear pain, rhinorrhea or sore throat Cardiovascular Cardiovascular: Denies chest pain or palpitations Respiratory/Chest Respiratory/Chest: Denies cough or dyspnea Gastrointestinal Gastrointestinal: Reports nausea; Denies abdominal pain, diarrhea or vomiting Genitourinary Genitourinary ED: Reports as per HPI; Denies dysuria, hematuria, urinary frequency, vaginal bleeding or vaginal discharge Musculoskeletal Musculoskeletal: Denies back pain or neck pain Integumentary Reports as per HPI and abscess; Denies rash Neurologic Neurologic: Denies headache(s), paresthesias or weakness Psychiatric Psychiatric: Denies anxiety or suicidal thoughts EXAM Physical Exam Const Vital Signs: 12/11/22 22:06 12/11/22 22:10 12/12/22 00:18 Temperature 98.7 F Temperature Source Temporal Pulse Rate 89 72 95 Respiratory Rate 18 16 26 H Respiratory Effort Respiratory Pattern Blood Pressure 116/83 H 116/83 H 146/100 H Blood Pressure Mean 94 94 115 Pulse Ox 98 100 98 Oxygen Delivery Method Room Air Room Air Room Air 12/12/22 00:18 12/12/22 00:18 Temperature Temperature Source Pulse Rate Respiratory Rate Respiratory Effort Normal Respiratory Pattern Normal Blood Pressure Blood Pressure Mean Pulse Ox Oxygen Delivery Method Room Air Positive well nourished and well developed General Appearance ED: well developed and NAD HEENT Reports TM's clear and moist mucous membranes normocephalic and atraumatic Tympanic Membrane ED: Yes TM's clear Eyes PERRL and EOMs intact bilaterally Eyes Narrative: No nystagmus including rotatory/vertical Neck full ROM and supple Resp normal respiratory effort and clear to auscultation bilaterally Cardio regular rate, regular rhythm and no murmurs GI non-tender and non-distended Auscultation: normoactive bowel sounds Palpation: soft Narrative: Examined with the nurse. Patient has a tender nonerythematous lesion about 2 cm in diameter mucosal surface left labia minora. No spontaneous discharge. Very tender patient very anxious with manipulation/examination. No speculum exam performed. Speculum Exam - Vagina: Negative for vaginal bleeding or vaginal discharge Back/Spine no CVA tenderness General Back: other FROM Extremity normal to inspection General Extremety ED: Negative for edema, pulses abnormal or tenderness General Extremity: Negative for edema or pulses abnormal Neuro oriented x3, CN's II-XII intact bilaterally and no sensory deficits noted Sensorium / Orientation: awake and alert Motor Exam: strength 5/5 throughout Psych Mood & Affect: anxious Skin no rashes or lesions noted and no wounds MDM MDM MDM Narrative Medical decision making narrative: Labs and EKG were done per nursing protocol. I reviewed them. She is hyperglycemic, she does have a history of type 2 diabetes. Her EKG is interpreted by myself and is normal. She is no longer dizzy. She is walking back and forth in the emergency department, she wanted me, after I offered, to open the cyst versus abscess in her vulva. However she was not willing to wait due to ED volume, as it was going to take me some time to get to it. She decided to leave AGAINST MEDICAL ADVICE and stick with her appointment with her writer editor. She left before I could discuss with her or discuss prescribing an antibiotic. Lab Data Attestation: I reviewed the patient's lab results. Labs: Laboratory Results - last 24 hr 12/11/22 12/11/22 12/11/22 22:10 22:10 22:10 WBC 10.5 RBC 5.23 Hgb 15.3 H Hct 44.6 MCV 85.3 MCH 29.3 MCHC 34.3 RDW Std Deviation 42.1 RDW Coeff of Amada 13.6 Plt Count 195 MPV 12.5 H Immature Gran % (Auto) 0.300 Neut % (Auto) 65.8 Lymph % (Auto) 25.1 Sunflower % (Auto) 5.5 Eos % (Auto) 2.6 Baso % (Auto) 0.7 Absolute Neuts (auto) 6.9 Absolute Lymphs (auto) 2.63 Nucleated RBC % 0 PT 13.7 INR 1.0 APTT 28.0 Sodium 136 Potassium 3.6 Chloride 101 Carbon Dioxide 28.0 Anion Gap 7 BUN 17 Creatinine 0.91 Est GFR (MDRD) Af Amer 88 Est GFR (MDRD) Non-Af 73 BUN/Creatinine Ratio 18.7 Glucose 367 H Calcium 9.1 Radiography Diagnostic Testing: Clinical Impression(s) from Imaging Studies Chest X-Ray 12/11/22 22:43 IMPRESSION: No acute cardiopulmonary disease. Electronically Signed: Wilson Medina MD at 22:58 EDT , Rhythm Strip Rhythm Strip: Sinus Rhythm Rate: 90 Ectopy: None EKG Initial EKG: Attestation: I personally reviewed and interpreted this EKG as follows: Interpretation: Sinus Rhythm and No Acute Injury Pattern Discharge Plan Triage Chief Complaint: Dizziness ED Provider: Willis Anne Dx/Rx/DC Orders Clinical Impression: Episodic peripheral vertigo, Cyst of vulva Prescriptions: No Action gabapentin 300 mg capsule 600 mg PO DAILY Label Comments: TAKE 1 CAPSULE BY MOUTH TWICE DAILY albuterol sulfate 90 mcg/actuation HFA aerosol inhaler 1 inh inhalation PRN PRN (Reason: Shortness Of Breath) Label Comments: inhale 2 puffs every 4 hours as needed for wheezing and shortness of breath biotin 1 mg capsule 1 mg PO DAILY multivitamin Tablet 1 tab PO DAILY Adult 50 Plus Probiotic 4 billion cell capsule 4,000 mmu cells PO DAILY topiramate 50 mg tablet 50 mg PO Label Comments: Take 1 tablet by mouth daily at bedtime. polyethylene glycol 3350 [Miralax] 17 gram/dose powder 4 g PO DAILY Qty: 850 1RF Trulicity 3 mg/0.5 mL pen injector 3 mg subcut QWEEK Qty: 2 3RF losartan 50 mg tablet 50 mg PO BID Qty: 180 2RF hydrochlorothiazide 12.5 mg tablet 12.5 mg PO QAM Qty: 90 2RF gabapentin 300 mg capsule 900 mg PO QHS Label Comments: TAKE 1 (ONE) capsule in the morning and 3 (THREE) CAPSULES AT BEDTIME cholecalciferol (vitamin D3) 1,250 mcg (50,000 unit) capsule 1,250 mcg PO QWEEK Rx Instructions: sunday promethazine 25 mg tablet 25 mg PO TID PRN (Reason: nausea and vomiting) Qty: 10 0RF (DME) FreeStyle Chirag 2 [place] Misc See Rx Instructions .ROUTE .MEDSUPPLY Qty: 1 0RF Rx Instructions: As directed (DME) FreeStyle Chirag 2 Sensor Kit See Rx Instructions .ROUTE .MEDSUPPLY Qty: 2 1RF Rx Instructions: As directed loratadine 10 mg tablet 10 mg PO DAILY Qty: 90 0RF metformin 500 mg tablet 1,000 mg PO BIDCM Qty: 90 1RF omeprazole 40 mg capsule,delayed release(DR/EC) 40 mg PO DAILY Qty: 90 0RF amoxicillin-pot clavulanate 875-125 mg tablet 1 tab PO BID Qty: 14 0RF ondansetron 4 mg tablet,disintegrating 4 mg PO Q8H PRN (Reason: nausea and vomiting) Qty: 30 0RF Tresiba FlexTouch U-100 100 unit/mL (3 mL) insulin pen 70 unit SUBCUT DAILY Qty: 21 3RF metoclopramide HCl [Reglan] 10 mg tablet 10 mg PO 4X/DAY PRN PRN (Reason: nausea and vomiting) Qty: 40 0RF Primary Care Provider: Yazmin Ludwig Referrals: Yazmin Ludwig MD [Primary Care Provider] - Disposition Disposition: Against Medical Advice
[2022-12-12 00:18] VITALS: BP 146/100; PULSE 95; RESP 26; O2SAT 98; BMI 28.5
[2022-12-12] MEDS: 0.9% Normal Saline 1,000 ML 50 ML IV (00:20)
--- NOTE | 2022-12-12 02:25 | ED.RN ---
pt stats she does not want to wait any longer and would like to leave. Risks and benefits discussed with pt about leaving AMA. Pt aware and had no further questions.
== END 2022-12-12 02:26 | disposition left against medical advice (07) ==
PROVIDERS: Emergency Provider Emergency Medicine; PCP Internal Medicine; Visit Provider Emergency Medicine
DX: H81.399 Other peripheral vertigo, unspecified ear (principal); E11.42 Type 2 diabetes mellitus with diabetic polyneuropathy; E11.43 Type 2 diabetes mellitus with diabetic autonomic (poly)neuropathy; I10 Essential (primary) hypertension; Z53.29 Procedure and treatment not carried out because of patient's decision for other reasons; N90.7 Vulvar cyst; Z79.899 Other long term (current) drug therapy; Z79.84 Long term (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 of oral hypoglycemic drugs; F17.210 Nicotine dependence, cigarettes, uncomplicated; K31.84 Gastroparesis
CPT/HCPCS: 71045; 80048; 85025; 85610; 85730; 93005; 99284; J7030; A4216

== ENCOUNTER → 2023-01-10 | Outpatient (CLI) | payer MEDICARE, MEDICAID, SELFPAY ==
[2023-01-10 15:53] LABS: Erythrocyte Sedimentation Rate 2 mm/hr (0-30)
[2023-01-10 16:09] LABS: Vitamin B12 417 pg/mL (211-911)
[2023-01-10 16:35] LABS: AST(SGOT) 13 U/L (15-37); Alanine Aminotransfer ALT/SGPT 19 U/L (13-56); Albumin, Serum 3.3 g/dL (3.2-5.0); Alkaline Phosphatase 51 U/L (45-117); Anion Gap 7 (5-15); BUN 11 mg/dL (7-18); BUN/Creat Ratio 15.8 RATIO (10-20); CRP < 2.90 mg/L (0.0-3.0); Calcium,Total 8.4 mg/dL (8.5-10.1); Chloride 107 mmol/L (98-107); EST Glomerular Filtration Rate 99 mL/min (>60); Est Glom Filt Rate - Afr Amer 120 mL/min (>60); Ferritin 18 ng/mL (8-252); Globulin 3.3 g/dL (2.2-4.2); Glucose 230 mg/dL (74-106); Iron 45 ug/dL (50-170); Iron Binding Capacity,Total 347 ug/dL (250-450); Protein, Total 6.6 g/dL (6.4-8.2); Sodium Level 137 mmol/L (136-145); Thyroid Stim Hormone (TSH) 1.66 uIU/mL (0.358-3.74)
[2023-01-16 00:06] LABS: Methylmalonic Acid Bld 139 nmol/L (0-378); SJOGREN'S Anti-SS-A test < 0.2 AI (0.0-0.9); SJOGREN'S Anti-SS-B test < 0.2 AI (0.0-0.9)
== END | disposition home or self-care (01) ==
PROVIDERS: PCP Internal Medicine
DX: G62.9 Polyneuropathy, unspecified (principal); E11.49 Type 2 diabetes mellitus with other diabetic neurological complication; R13.10 Dysphagia, unspecified
CPT/HCPCS: 36415; 80053; 82088; 82525; 82607; 82728; 82784; 83540; 83550; 83883; 83921; 84207; 84238; 84244; 84425; 84443; 85652; 86140; 86235; 86334

== ENCOUNTER 2023-01-15 17:02 | Emergency (ER) | payer MEDICARE, MEDICAID, SELFPAY ==
[2023-01-15 17:03] VITALS: BP 157/104; PULSE 92; RESP 14; TEMP 36.3; O2SAT 99; BMI 31.2
[2023-01-15 17:14] VITALS: BP 157/104; PULSE 93; RESP 18; O2SAT 99
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
--- NOTE | 2023-01-15 18:15 | RAD_ITS ---
INDICATION: chest wall pain EXAMINATION/TECHNIQUE: X-RAY - XR Chest 2 Views COMPARISON: 12/11/2022 FINDINGS: LINES/DEVICES: None. LUNGS: No consolidation, edema or effusion. No pneumothorax. MEDIASTINUM AND CARDIOVASCULAR STRUCTURES: Cardiac silhouette not enlarged. Central airways and mediastinal contour are unremarkable. BONES AND SOFT TISSUES: No acute changes. RAD/Chest PA and Lateral IMPRESSION: No radiographic evidence of acute cardiopulmonary disease. Electronically Signed: Marek Hermosillo MD at 18:40 EDT ,
[2023-01-15 18:44] VITALS: BP 174/107; PULSE 92; RESP 18; O2SAT 98
== END 2023-01-15 19:32 | disposition home or self-care (01) ==
PROVIDERS: Emergency Provider Student in an Organized Health Care Education/Training Program; PCP Internal Medicine; Visit Provider Student in an Organized Health Care Education/Training Program
DX: S09.8XXA Other specified injuries of head, initial encounter (principal); E11.42 Type 2 diabetes mellitus with diabetic polyneuropathy; E11.43 Type 2 diabetes mellitus with diabetic autonomic (poly)neuropathy; S20.20XA Contusion of thorax, unspecified, initial encounter; S16.1XXA Strain of muscle, fascia and tendon at neck level, initial encounter; I10 Essential (primary) hypertension; V89.2XXA Person injured in unspecified motor-vehicle accident, traffic, initial encounter; Y92.410 Unspecified street and highway as the place of occurrence of the external cause; K31.84 Gastroparesis; Z79.84 Long term (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 of oral hypoglycemic drugs; Z79.85 Long-term (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 of injectable non-insulin antidiabetic drugs; F17.210 Nicotine dependence, cigarettes, uncomplicated
CPT/HCPCS: 70450; 71046; 72125; 99282

== ENCOUNTER → 2023-02-28 | Outpatient (CLI) | payer MEDICARE, MEDICAID, SELFPAY ==
[2023-02-28 12:50] LABS: Erythrocyte Sedimentation Rate 1 mm/hr (0-30)
[2023-02-28 13:12] LABS: CRP < 2.90 mg/L (0.0-3.0)
[2023-03-01 19:07] LABS: Anti-Nuclear Antibody Test Negative (.)
== END | disposition home or self-care (01) ==
LOC: LAB.FUTURE 10:53 → BIMLAB 11:06
PROVIDERS: PCP Internal Medicine
DX: N89.8 Other specified noninflammatory disorders of vagina (principal)
CPT/HCPCS: 36415; 85652; 86038; 86140

== ENCOUNTER 2023-04-20 10:50 | Outpatient (CLI) | payer MEDICARE, MEDICAID, SELFPAY ==
[2023-04-20 10:58] LABS: Bacteria 0 SEEN /hpf (None Seen); Mucous, Urine 0 SEEN /hpf (<or=2+); White Blood Cells 0 SEEN /hpf (0-5)
[2023-04-20 11:14] LABS: Absolute Lymphocyte Count 1.46 X10^3/uL (0.83-4.51); Absolute Neutrophil Count 4.5 X10^3/uL (2.0-7.7); Basophil# 0.03 X10^3/uL; Basophil% 0.5 % (0-1); Eosinophil# 0.15 X10^3/uL; Eosinophils% 2.3 % (0-5); Hematocrit 43.7 % (37-47); Hemoglobin 14.7 g/dL (12.0-15.0); Lymphocyte # 1.46 X10^3/ul (0.83-4.51); Lymphocyte % 22.3 % (19-41); Mean Corp Hgb Conc 33.6 g/dL (32-36); Mean Corpuscular Volume 86.2 fL (81-99); Mean Platelet Vol. 12.5 fl (6.2-12.0); Monocyte# 0.39 X10^3/uL; Monocyte% 5.9 % (0-10); NRBC Flagged by Analyzer 0 % (0-5); Neutrophil # 4.51 X10^3/uL (2.7-7.7); Neutrophil % 68.7 % (47-70); Platelet Count 194 K/mm3 (150-450); RBC Distribution Width CV 12.4 % (11.6-14.6); RBC Distribution Width SD 38.9 fl (35.1-43.9); Red Blood Count 5.07 M/mm3 (4.2-5.4); White Blood Count 6.6 K/mm3 (4.4-11.0)
[2023-04-20 11:17] LABS: Erythrocyte Sedimentation Rate 3 mm/hr (0-30)
[2023-04-20 11:18] LABS: Color, Urine Yellow (Yellow); Glucose, Dipstick 1000 mg/dl (Normal); Ketone-Dipstick Negative (Negative); Leukocyte Esterase-Dipstick Negative /ul (Negative); Nitrite-Dipstick Negative (Negative); Occult Blood-Urine 50 /ul (Negative); Protein-Dipstick Negative (Negative); Urine Bilirubin Dipstick Negative (Negative); Urine Clarity Sl. Cloudy (Clear); Urine Urobilinogen Normal (Normal)
[2023-04-20 11:24] LABS: Red Blood Cells-Urine 0-5 SEEN /hpf (0-5); Squamous Epithelial Cells - UA 0-5 SEEN /hpf (5-10)
[2023-04-20 11:33] LABS: Amphetamine Urine VISTA NEGATIVE (<1000 ng/mL); Barbiturate Urine VISTA NEGATIVE (< 200 ng/mL); Benzodiazepine Urine VISTA NEGATIVE (< 200 ng/mL); Cocaine Urine VISTA NEGATIVE (< 300 ng/mL); Ecstacy Urine VISTA NEGATIVE (< 500 ng/mL); Methadone Urine VISTA NEGATIVE (< 300 ng/mL); PCP Urine VISTA NEGATIVE (< 25 ng/mL); THC Urine VISTA POSITIVE (< 50 ng/mL); Vista UDS pH Range 5
[2023-04-20 11:50] LABS: Anion Gap 4 (5-15); BUN 11 mg/dL (7-18); BUN/Creat Ratio 15.4 RATIO (10-20); Calcium,Total 8.6 mg/dL (8.5-10.1); Chloride 101 mmol/L (98-107); Creatinine, Serum 0.71 mg/dL (0.55-1.02); EST Glomerular Filtration Rate 96 mL/min (>60); Est Glom Filt Rate - Afr Amer 117 mL/min (>60); Glucose 384 mg/dL (74-106); Sodium Level 132 mmol/L (136-145)
[2023-04-20 11:58] LABS: ALB/GLOB Ratio 0.9 RATIO (0.9-2.4); AST(SGOT) 11 U/L (15-37); Alanine Aminotransfer ALT/SGPT 22 U/L (13-56); Albumin, Serum 3.4 g/dL (3.2-5.0); Alkaline Phosphatase 80 U/L (45-117); Anion Gap 3 (5-15); BUN 11 mg/dL (7-18); BUN/Creat Ratio 17.3 RATIO (10-20); CRP < 2.90 mg/L (0.0-3.0); Calcium,Total 8.6 mg/dL (8.5-10.1); Chloride 101 mmol/L (98-107); Creatinine, Serum 0.64 mg/dL (0.55-1.02); EST Glomerular Filtration Rate 110 mL/min (>60); Est Glom Filt Rate - Afr Amer 133 mL/min (>60); Globulin 3.8 g/dL (2.2-4.2); Glucose 377 mg/dL (74-106); LDH 171 U/L (84-246); Protein, Total 7.2 g/dL (6.4-8.2); Sodium Level 131 mmol/L (136-145)
[2023-04-20 12:23] LABS: Hepatitis C Antibody Non-Reactive (Nonreactive)
[2023-04-23 13:07] LABS: Anti-Centromere B Ab <0.2 AI (0.0-0.9); Anti-Chromatin <0.2 AI (0.0-0.9); Anti-Jo <0.2 AI (0.0-0.9); Anti-Scleroderma-70 AB <0.2 AI (0.0-0.9); Anti-dsDNA Ab <1 IU/mL (0-9); RNP Ab 0.3 AI (0.0-0.9); SJOGREN'S Anti-SS-A test < 0.2 AI (0.0-0.9); SJOGREN'S Anti-SS-B test < 0.2 AI (0.0-0.9); Smith Ab <0.2 AI (0.0-0.9)
[2023-04-26 00:07] LABS: Albumin 3.6 g/dL (2.9-4.4); Alpha-1-Globulins 0.2 g/dL (0.0-0.4); Alpha-2-Globulins 0.7 g/dL (0.4-1.0); Cytoplasmic Ab (C-ANCA) <1:20 titer (Neg:<1:20); Endomysial Antibody IgA Negative (Negative); Gamma Globulin 1.2 g/dL (0.4-1.8); HCV Quant. RNA PCR HCV Not Detected IU/mL (.); Immunoglobulin A 256 mg/dL (87-352); Immunoglobulin E 74 IU/mL (6-495); Immunoglobulin G 1180 mg/dL (586-1602); Immunoglobulin M 63 mg/dL (26-217); PROEL- TOTAL PROTEIN 6.6 g/dL (6.0-8.5); Perinuclear Ab (P-ANCA) <1:20 titer (Neg:<1:20); t-Transglutaminase IgA <2 U/mL (0-3)
== END 2023-04-20 23:59 | disposition home or self-care (01) ==
LOC: LAB 10:52
PROVIDERS: Nurse Practitioner Family; Physician Assistant; PCP Internal Medicine; Referring Provider Internal Medicine Gastroenterology; Visit Provider Internal Medicine Gastroenterology
DX: Z11.59 Encounter for screening for other viral diseases (principal); Z91.89 Other specified personal risk factors, not elsewhere classified; R11.2 Nausea with vomiting, unspecified; I10 Essential (primary) hypertension; R19.7 Diarrhea, unspecified; L02.91 Cutaneous abscess, unspecified; Z86.718 Personal history of other venous thrombosis and embolism
CPT/HCPCS: 36415; 80048; 80053; 80307; 81001; 82784; 82785; 83516; 83615; 84165; 85025; 85652; 86140; 86225; 86235; 86255; 86256; 86334; 86803; 87522; 87902

== ENCOUNTER 2023-08-19 21:44 | Emergency (ER) | payer MEDICARE, SELFPAY ==
[2023-08-19 21:45] VITALS: BP 169/88; PULSE 96; RESP 15; TEMP 36.6; O2SAT 100
[2023-08-19 22:11] VITALS: BMI 32.8
--- NOTE | 2023-08-19 22:12 | EDS_ITS ---
HPI History of Present Illness Chief Complaint: Abscess Informant: patient Onset/Context/Timing Onset: Weeks (1) Context: Gradual Onset Timing: Continuous Quality: Sharp Location: Left inguinal area Worsened by: Walking Relieved by: Nothing Narrative Narrative: Presents with inguinal abscess that has been getting worse for the past week. Patient states that she has had necrotizing fasciitis in this area before and is concerned about that. Patient states that today she started having some subjective chills and nausea. Patient states she took her temperature at home and it was 99.7. Patient states that her normal temperature is never above 98. Patient describes her pain as sharp. Patient states it is mainly over the left inguinal area. Patient states it is worse with ambulation. Patient denies any vomiting. Patient admits to some urinary frequency but denies any dysuria or hematuria. [facility] Medical History Anxiety and depression Bipolar disorder Craniofacial hyperhidrosis Fibromyalgia Hemoglobin A1c greater than 9.0% History of necrotising fasciitis History of venous thromboembolism HTN (hypertension) Hydradenitis Lactose intolerance in adult Necrotizing fasciitis Obesity Open wound of vulva Polycystic ovary Polyneuropathy due to type 2 diabetes mellitus Post traumatic stress disorder (PTSD) Type 2 diabetes mellitus Vulvar abscess Home Medications albuterol sulfate 90 mcg/actuation aerosol inhaler 1 inh inhalation PRN PRN Shortness Of Breath 08/09/21 [History Last Taken Unknown] gabapentin 300 mg capsule 1,200 mg PO BID nerve pain 08/09/21 [History Last Taken 12/18/21] cholecalciferol (vitamin D3) 1,250 mcg (50,000 unit) capsule 1,250 mcg PO QWEEK supplement 12/18/21 [History Last Taken 12/15/21] biotin 1 mg capsule 1 mg PO DAILY 01/06/22 [History Last Taken Unknown] lactobacillus combination no.9 4 billion cell capsule (Adult 50 Plus Probiotic) 4,000 mmu cells PO DAILY 01/06/22 [History Last Taken Unknown] multivitamin 1 tab PO DAILY 01/06/22 [History Last Taken Unknown] polyethylene glycol 3350 17 gram/dose oral powder (Miralax) 4 g PO DAILY #850 grams 05/19/22 [Rx Last Taken Unknown] dulaglutide 3 mg/0.5 mL subcutaneous pen injector 3 mg (0.5 mL) subcut QWEEK diabetes #2 mL 01/30/23 [Rx Last Taken Unknown] flash glucose scanning reader (FreeStyle Chirag 2 [place]) #1 ea 01/30/23 [Rx Last Taken Unknown] flash glucose sensor (FreeStyle Chirag 2 Sensor kit) #2 ea 01/30/23 [Rx Last Taken Unknown] loratadine 10 mg tablet 10 mg PO DAILY allergies #90 tabs 01/30/23 [Rx Last Taken Unknown] losartan 50 mg tablet 25 mg PO DAILY 01/30/23 [History Last Taken Unknown] metformin 500 mg tablet 1,000 mg (2 x 500 mg) PO BIDCM diabetes #90 tabs [Rx Last Taken Unknown] omeprazole 40 mg capsule,delayed release 40 mg PO DAILY GERD #90 caps 01/30/23 [Rx Last Taken Unknown] insulin degludec 100 unit/mL (3 mL) subcutaneous pen (Tresiba FlexTouch U-100 insulin) 40 unit subcut DAILY diabetes 08/19/23 [History Last Taken Unknown] clindamycin HCl 300 mg capsule (Cleocin HCl) 300 mg PO Q6H #40 CAPSULES 08/20/23 [Rx Last Taken Unknown] Allergy/AdvReac Type Severity Reaction Status Date / Time doxycycline Allergy Severe rash Verified 08/19/23 21:49 amoxicillin [Amoxicillin] Allergy Unknown Verified 08/19/23 21:49 asenapine maleate Allergy Unknown Verified 08/19/23 21:49 [From Saphris] cephalexin AdvReac Intermediate upset Verified 08/19/23 21:49 stomach Family History Mother Hypertension Brain aneurysm Father Diabetes Hypertension Grandmother Cancer liver throat kidney Diabetes Hypertension Heart disease CVA (cerebral vascular accident) Breast cancer Grandfather Kidney disease Hypertension CVA (cerebral vascular accident) Surgical History H/O lateral meniscus repair of left knee Social History household members: spouse Smoking Status: Current every day smoker tobacco type: cigarettes alcohol intake: never substance use type: does not use caffeine: Yes frequency: 5-6 times per week seatbelt use: always do you feel safe at home: Yes additional social history: Jonathan- Unemployed Patient is on disability ROS ROS ED Constitutional Constitutional ED: Reports chills and subjective; Denies fever(s) Eyes Eyes: Denies blurry vision or change in vision ENT ENT ED: Reports rhinorrhea and sore throat Cardiovascular Cardiovascular: Denies chest pain or palpitations Respiratory/Chest Respiratory/Chest: Denies cough or dyspnea Gastrointestinal Gastrointestinal: Reports nausea; Denies vomiting Genitourinary Genitourinary ED: Reports urinary frequency; Denies dysuria or hematuria Musculoskeletal Musculoskeletal: Reports back pain; Denies neck pain Integumentary Reports abscess; Denies rash Neurologic Neurologic: Reports headache(s); Denies weakness Allergic/Immunologic Allergic/Immunologic ED: Denies mouth swelling or urticaria EXAM Physical Exam Const Vital Signs: 08/19/23 21:45 Temperature 97.9 F Temperature Source Temporal Pulse Rate 96 Respiratory Rate 15 Blood Pressure 169/88 H Blood Pressure Mean 115 Pulse Ox 100 Oxygen Delivery Method Room Air Positive well nourished, well developed and obese General Appearance ED: well developed and NAD Nutritional Appearance: obese HEENT Reports moist mucous membranes Neck supple and no JVD Resp normal respiratory effort and clear to auscultation bilaterally Cardio regular rate and regular rhythm GI non-tender and non-distended Palpation: soft Narrative: There is some erythema and induration over the left labia majora. There is no fluctuance. There is no evidence of any abscess. There is tenderness to palpation over this area. There is no discharge or drainage noted. Neuro oriented x3, CN's II-XII intact bilaterally and no sensory deficits noted Sensorium / Orientation: alert Motor Exam: strength 5/5 throughout Psych mental status grossly normal MDM MDM MDM Narrative Medical decision making narrative: Differential diagnosis includes inguinal abscess, hidradenitis suppurativa, necrotizing fasciitis, cellulitis, and sepsis. CBC will be obtained to assess for leukocytosis and anemia. Basic metabolic profile will be obtained to assess for electrolyte abnormality and renal function. Serum lactate will be obtained to assess for sepsis. Urinalysis will be obtained to assess for urinary tract infection. Lab Data Attestation: I reviewed the patient's lab results. Lab results narrative: CBC was reviewed and showed a slight thrombocytopenia of 127. The remainder was within normal limits. Basic metabolic profile was reviewed. Glucose was elevated at 627. CO2 was 20. Anion gap was normal. Sodium was slightly low at 131. Lactate was reviewed and was slightly elevated at 2.3. This is most likely from her metformin. Urinalysis was reviewed. There is no evidence of urinary tract infection or hematuria. Labs: Laboratory Results - last 24 hr 08/19/23 22:42 WBC 9.1 RBC 4.49 Hgb 13.4 Hct 37.8 MCV 84.2 MCH 29.8 MCHC 35.4 RDW Std Deviation 41.2 RDW Coeff of Amada 13.4 Plt Count 127 L MPV 12.6 H Immature Gran % (Auto) 0.200 Neut % (Auto) 66.3 Lymph % (Auto) 23.8 [place] % (Auto) 6.4 Eos % (Auto) 2.8 Baso % (Auto) 0.5 Absolute Neuts (auto) 6.1 Absolute Lymphs (auto) 2.17 Nucleated RBC % 0 Sodium 131 L Potassium 4.6 Chloride 101 Carbon Dioxide 20.0 L Anion Gap 10 BUN 13 Creatinine 0.99 Estim Creat Clear Calc 92.37 Est GFR (MDRD) Af Amer 80 Est GFR (MDRD) Non-Af 66 BUN/Creatinine Ratio 13.1 Glucose 627 H* Lactic Acid 2.3 H* Calcium 8.0 L Urine Color Yellow Urine Clarity Clear Urine pH 7.0 Ur Specific [place] 1.010 Urine Protein Negative Urine Glucose (UA) 1000 H Urine Ketones Negative Urine Occult Blood 10 H Urine Nitrite Negative Urine Bilirubin Negative Urine Urobilinogen Normal Ur Leukocyte Esterase Negative Urine RBC 0-5 SEEN Urine WBC 0 SEEN Ur Squamous Epith Cells 0-5 SEEN Urine Bacteria 0 SEEN Urine Mucus 0 SEEN Treatment and Re-Evaluation :: Patient was advised of her findings. Patient was given a dose of Humalog here. Patient was given a dose of clindamycin. Patient was instructed to use warm compresses to the area. Patient states she will call her surgeon tomorrow to schedule an appointment for follow-up care. Patient was given a prescription for clindamycin. Patient was instructed to follow-up with her primary care physician in 3 to 5 days. Patient understood and was agreeable with the plan. All questions were answered. Discharge Plan Triage Chief Complaint: Abscess ED Provider: Noel Zhou Dx/Rx/DC Orders Clinical Impression: Cellulitis of labia majora, Poorly controlled diabetes mellitus, Smoker Instructions: ED Cellulitis Prescriptions: New clindamycin HCl [Cleocin HCl] 300 mg capsule 300 mg PO Q6H Qty: 40 0RF No Action gabapentin 300 mg capsule 1,200 mg PO BID Patient Comments: TAKE 1 CAPSULE BY MOUTH TWICE DAILY albuterol sulfate 90 mcg/actuation HFA aerosol inhaler 1 inh inhalation PRN PRN (Reason: Shortness Of Breath) Patient Comments: inhale 2 puffs every 4 hours as needed for wheezing and shortness of breath biotin 1 mg capsule 1 mg PO DAILY multivitamin Tablet 1 tab PO DAILY Adult 50 Plus Probiotic 4 billion cell capsule 4,000 mmu cells PO DAILY polyethylene glycol 3350 [Miralax] 17 gram/dose powder 4 g PO DAILY Qty: 850 1RF losartan 50 mg tablet 25 mg PO DAILY (DME) FreeStyle Chirag 2 Sensor Kit See Rx Instructions .ROUTE .MEDSUPPLY Qty: 2 1RF Rx Instructions: As directed (DME) FreeStyle Chirag 2 [place] Misc See Rx Instructions .ROUTE .MEDSUPPLY Qty: 1 0RF Rx Instructions: As directed dulaglutide 3 mg/0.5 mL pen injector 3 mg subcut QWEEK Qty: 2 3RF omeprazole 40 mg capsule,delayed release(DR/EC) 40 mg PO DAILY Qty: 90 0RF metformin 500 mg tablet 1,000 mg PO BIDCM Qty: 90 1RF loratadine 10 mg tablet 10 mg PO DAILY Qty: 90 0RF cholecalciferol (vitamin D3) 1,250 mcg (50,000 unit) capsule 1,250 mcg PO QWEEK Rx Instructions: sunday insulin degludec [Tresiba FlexTouch U-100] 100 unit/mL (3 mL) insulin pen 40 unit SUBCUT DAILY Primary Care Provider: Care Physician,No Primary Referrals: Valeriy Avitia MD [Med Staff - Active Staff] - 3-5 Days Kamila Flores MD [Med Staff - Senior Drafter] - 3-5 Days Jun Caraballo MD [Non-Staff] - 3-5 Days Care Physician,No Primary [Primary Care Provider] - Disposition Disposition: Home, Self Care
--- OUTSIDE RECORDS SUMMARY | 2023-08-19 22:44 | XMS RPT_ITS | CCD ---
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 Name Role Phone Daniele WELLS, Beulah Olivas Unavailable [phone] Matthew Hurley Unavailable Unavailable Apple STEEL ERECTOR APPRENTICE, Bonnie Whitley Unavailable Adore WELLS, Valeriy Almonte Unavailable MIRIAM Tellez RN, Ana Almonte Unavailable Unavailabl e Ruggeri FURNITURE MAKER, Deanna F Unavailable Unavailabl e Ruggeri FURNITURE MAKER, Deanna F Unavailable Unavailabl e Fartun Murrell MD Primary Care Provider [facility], Keti Unavailable Fartun Murrell MD Primary Care Provider [facility], [facility]eti Unavailable [facility], [facility]eti Unavailable Can Anderson Primary Care Provider UnavailFartun Borja MD Primary Care Provider [facility], Keti Unavailable PHYSICIAN, NONE Primary Care Physician Unavailab le [facility], Keti Unavailable [facility], [facility]eti Unavailable James Real DO Primary Care Provider ROXANA WELLS, DONTE Olivas Attending Unavail able PHYSICIAN, NONE Primary Care Unavailable SARABROOKE SAMANIEGO, November Admitting Unavail able SARA SAMANIEGO, November Attending Unavail able PHYSICIAN, NONE Primary Care Unavailable STAR REECE Referring Unavailable CHAZ, STAR Attending Unavailable [facility] Primary Care Unavailable ANA BERRY Attending Unavailable MICHAEL, WILLIS Referring Unavailable MICHAEL, WILLIS Attending Unavailable MICHAEL, WILLIS Referring Unavailable GRACE, ANA Hancock Attending Unavailable TO, BERONICA Attending Unavailable TESTRAKE, CALOS Attending Unavailable MICHAEL, WILLIS Referring Unavailable CHAZ, STAR Referring Unavailable MCKINNON, HARDY Whitley Attending Unavailable KENDELL CARY Referring Unavailable GRACEANA Attending Unavailable CHAZ, STAR Referring Unavailable CHAZ, STAR Attending Unavailable KATHE REYNOLDS Attending Unavailable GRACE, ANA Hancock Attending Unavailable DK, ROMAN Referring Unavailable TO, BERONICA Referring Unavailable KIANNA, AUSTIN Primary Care Unavailable MCKINNON, HARDY Whitley Referring Unavailable RENATA CONSTANTINO Referring Unavailable DK, ROMAN Attending Unavailable DK, ROMAN Referring Unavailable RODRIGUEZ, WILLIS Referring Unavailable MICHAEL, WILLIS Attending Unavailable ZENAIDA ROMAN Referring Unavailable KIANNA, AUSTIN Primary Care Unavailable TESTRACYNDI, CALOS Referring Unavailable KIANNA, [place]IN Primary Care Unavailable KENYA, CALOS Attending Unavailable MICHAEL, WILLIS Attending Unavailable TO, BERONICA Referring Unavailable CHAZ, STAR Referring Unavailable JEFFERY, LEIGHTON Cano Attending Unavailable JEFFERY, LEIGHTON Cano Attending Unavailable TESTROGELIO, CALOS Referring Unavailable DARWIN PATEL Referring Unavailable CHAZ, STAR Attending Unavailable Allergies Allergy Classification Reported Allergen(s) Allergy Type Date of Onset Reaction(s) Facility (13 sources) amoxicillin; Translations: [AMOXICILLIN] drug allergy 08-29-2005 rash [facility] Work Phone: (20 sources) asenapine; Translations: [ASENAPINE MALEATE] drug allergy 02-23-2015 Unknown, Other: See Comments [facility] Work Phone: (20 sources) Amoxicillin; Translations: [amoxicillin] Drug Allergy 08-29-2005 Itching, Unknown, Hives, Rash, Other: See Comments [facility] Work Phone: (20 sources) Asenapine; Translations: [asenapine] Drug Allergy 11-25-2010 Mental Status Change [facility] Work Phone: (20 sources) Cephalexin; Translations: [cephalexin] Drug Allergy 06-16-2019 GI Upset, Other: See Comments [facility] Work Phone: (20 sources) Doxycycline; Translations: [doxycycline] Drug Allergy 03-08-2021 Rash, Other: See Comments [facility] Medications Current Medications Medication Drug Class(es) Dates Sig (Normalized) Sig (Original) azithromycin 250 mg oral tablet (1 source) Macrolide Antimicrobial Start: 12-27-2021 End: 01-01-2022 take 2 tablets by mouth once daily, then take 1 tablet by mouth once daily azithromycin (ZITHROMAX) 250 mg tablet Indications: Other acute nonsuppurative otitis media of right ear, recurrence not specified Take 2 tablets by mouth once daily for 1 day, THEN 1 tablet once daily for 4 days. 6 tablet 0 12/27/2021 01/01/2022 Active Completed/Discontinued Medications Medication Drug Class(es) Dates Sig (Normalized) Sig (Original) acetaminophen 325 mg / oxyCODONE hydrochloride 5 mg oral tablet (11 sources) Opioid Agonist PERCOCET 5-325 M G TABS 1-2 tabs q 6 hrs prn OXYCODONE-ACETAMINOPHE N [id number] Dotty Blair FURNITURE MAKER Problems Active Problems Problem Classification Problem Date Documented Da te Episodic/Chronic Abdominal pain (1 source) Abdominal pain; Translations: [Unspecified abdominal pain] Episodic Acquired foot deformities (1 source) Hammer toe; Translations: [Other hammer toe(s) (acquired), right foot] Chronic Acute bronchitis (1 source) Viral bronchitis; Translations: [Acute bronchitis due to other specified organisms] Episodic Allergic reactions (1 source) Allergic disposition; Translations: [Allergy, unspecified, initial encounter] Onset: 3 Episodic Anxiety disorders (20 sources) Anxiety disorder; Translations: [Panic disorder with agoraphobia] Onset: 6 08-10-2010 Chronic Bacterial infection; unspecified site (2 sources) Methicillin resistant Staphylococcus aureus infection 08-01-2016 Episodic Diabetes mellitus with complications (20 sources) Hyperglycemia due to type 2 diabetes mellitus; Translations: [Type 2 diabetes mellitus with hyperglycemia] Onset: 9 05-12-2021 Chronic Diabetes mellitus without complication (20 sources) Type 2 diabetes mellitus; Translations: [Type 2 diabetes mellitus with hyperglycemia] Onset: 2 08-10-2010 Chronic Diabetes mellitus without complication (1 source) Glycosuria; Translations: [Glycosuria] 06-30-2023 Episodic Disorders of lipid metabolism (20 sources) Hyperlipidemia; Translations: [Hyperlipidemia, unspecified] Onset: 6 12-20-2016 Chronic Esophageal disorders (13 sources) Gastroesophageal reflux disease; Translations: [Gastro-esophageal reflux disease without esophagitis] 08-10-2010 Chronic Essential hypertension (20 sources) Hypertensive disorder; Translations: [Essential (primary) hypertension] Onset: 4 12-20-2016 Chronic Female infertility (20 sources) Female infertility; Translations: [Infertility, female, of unspecified origin] Onset: 0 05-13-2010 Chronic Headache; including migraine (1 source) Headache; including migraine; Translations: [Headache causing frequent awakening from sleep] Onset: 3 Immunizations and screening for infectious disease (20 sources) Patient encounter status; Translations: [Encounter for immunization] Onset: 2 Episodic Inflammatory diseases of female pelvic organs (1 source) Abscess of vulva; Translations: [Abscess of vulva] Onset: 3 Episodic Menstrual disorders (5 sources) Abnormal uterine and vaginal bleeding, unspecified; Translations: [Abnormal uterine and vaginal bleeding, unspecified] Onset: 7 03-30-2017 Chronic Mood disorders (11 sources) Major depressive disorder, recurrent, moderate; Translations: [Bipolar disorder] Onset: 7 12-14-2016 Chronic Nausea and vomiting (1 source) Nausea; Translations: [Nausea] Episodic Nervous system congenital anomalies (20 sources) Disorder of autonomic nervous system; 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]] Onset: 2 Chronic Open wounds of extremities (1 source) Open wound of right thumb; Translations: [Unspecified open wound of right thumb without damage to nail, initial encounter] Episodic Other aftercare (1 source) 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 (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 of insulin; Translations: [Type 2 diabetes mellitus with hyperglycemia, with long-term current use of insulin (HCC)] Onset: 4 Episodic Other circulatory disease (2 sources) Orthostatic hypotension; Translations: [Orthostatic hypotension] Episodic Other circulatory disease (1 source) Other specified symptoms and signs involving the circulatory and respiratory systems; Translations: [Diminished pulses in lower extremity] Onset: 3 Episodic Other connective tissue disease (1 source) Neuropathic pain; Translations: [Neuralgia and neuritis, unspecified] Episodic Other connective tissue disease (1 source) Pain of right forearm; Translations: [Pain in right forearm] 03-08-2023 Episodic Other ear and sense organ disorders (1 source) Otalgia, left ear; Translations: [Otalgia, unspecified] 03-08-2023 Episodic Other female genital disorders (1 source) Vaginal dryness; Translations: [Other specified noninflammatory disorders of vagina] 02-19-2023 Episodic Other gastrointestinal disorders (1 source) Chronic constipation; Translations: [Other constipation] Episodic Other gastrointestinal disorders (1 source) Dysphagia; Translations: [Dysphagia, unspecified] Episodic Other injuries and conditions due to external causes (1 source) Injury of coccyx; Translations: [Unspecified injury of lower back, initial encounter] 03-08-2023 Episodic Other liver diseases (2 sources) Steatosis of liver 08-01-2016 Chronic Other lower respiratory disease (1 source) Cough; Translations: [Acute cough] 06-30-2023 Episodic Other lower respiratory disease (1 source) Postviral cough; Translations: [Post-viral cough syndrome] 06-30-2023 Episodic Other nervous system disorders (2 sources) Axonal neuropathy; Translations: [Other specified polyneuropathies] Chronic Other nervous system disorders (1 source) Sensory neuropathy; Translations: [Polyneuropathy, unspecified] Chronic Other nervous system disorders (1 source) Polyneuropathy; Translations: [Polyneuropathy, unspecified] Chronic Other nervous system disorders (1 source) Demyelinating disease of central nervous system; Translations: [Demyelinating disease of central nervous system, unspecified] 06-15-2022 Chronic Other nervous system disorders (1 source) Small fiber neuropathy; Translations: [Polyneuropathy, unspecified] 06-29-2023 Chronic Other nervous system disorders (1 source) Polyneuropathy, unspecified; Translations: [Small fiber neuropathy] Onset: 4 Chronic Other nervous system disorders (1 source) Paresthesia; Translations: [Paresthesia of skin] 06-15-2022 Episodic Other nutritional; endocrine; and metabolic disorders (9 sources) Overweight; Translations: [Overweight] Onset: 7 12-20-2016 Chronic Other nutritional; endocrine; and metabolic disorders (20 sources) Body mass index 40+ - severely obese; Translations: [Body mass index (BMI) 40.0-44.9, adult] 07-17-2014 Chronic Other nutritional; endocrine; and metabolic disorders (20 sources) Metabolic syndrome X; Translations: [Metabolic syndrome] Onset: 2 Chronic Other nutritional; endocrine; and metabolic disorders (1 source) Hypomagnesemia; Translations: [Hypomagnesemia] Onset: 3 Chronic Other screening for suspected conditions (not mental disorders or infectious disease) (1 source) Imaging of thorax abnormal; Translations: [Abnormal findings on diagnostic imaging of other specified body structures] 06-29-2023 Chronic Other screening for suspected conditions (not mental disorders or infectious disease) (3 sources) Electrocardiogram abnormal; Translations: [Abnormal electrocardiogram [ECG] [EKG]] Onset: 4 06-29-2023 Episodic Other skin disorders (1 source) Eruption; Translations: [Rash and other nonspecific skin eruption] Episodic Other skin disorders (1 source) Hidradenitis suppurativa; Translations: [Hidradenitis suppurativa] Onset: 3 Episodic Otitis media and related conditions (1 source) Acute secretory otitis media; Translations: [Other acute nonsuppurative otitis media, right ear] Episodic Personality disorders (2 sources) Personality disorder 08-01-2016 Chronic Phlebitis; thrombophlebitis and thromboembolism (20 sources) H/O: Deep vein thrombosis; Translations: [Personal history of other venous thrombosis and embolism] Onset: 5 08-18-2016 Episodic Past or Other Problems Problem Classification Problem Date Documented Date Episodic/Chronic Conditions associated with dizziness or vertigo (20 sources) Orthostatic hypotension; Translations: [Dizziness and giddiness] Onset: 07-16-2022 Episodic Fracture of upper limb (16 sources) Closed fracture of right forearm; Translations: [Unspecified fracture of right forearm, initial encounter for closed fracture] Onset: 03-21-2023 03-08-2023 Episodic Genitourinary symptoms and ill-defined conditions (4 sources) Proteinuria; Translations: [Proteinuria, unspecified] Onset: 10-05-2022 Episodic Malaise and fatigue (2 sources) Other malaise; Translations: [Other fatigue] Onset: 02-02-2023 Episodic Mycoses (11 sources) Dermal mycosis; Translations: [Superficial mycosis, unspecified] Onset: 09-26-2016 09-26-2016 Episodic Other circulatory disease (20 sources) Labile systemic arterial hypertension; Translations: [Other specified symptoms and signs involving the circulatory and respiratory systems] Onset: 07-16-2022 Episodic Other connective tissue disease (20 sources) Necrotizing fasciitis; Translations: [Necrotizing fasciitis] Onset: 09-19-2016 09-26-2016 Episodic Other connective tissue disease (20 sources) Fibromyalgia; Translations: [Fibromyalgia] Onset: 08-25-2010 08-25-2010 Episodic Other connective tissue disease (20 sources) Disorder of autonomic nervous system; Translations: [Other symptoms and signs involving the nervous system] Onset: 07-16-2022 Episodic Other connective tissue disease (16 sources) Transient neurological symptoms; Translations: [Other symptoms and signs involving the nervous system] Onset: 07-16-2022 07-16-2022 Episodic Other connective tissue disease (1 source) Pain in right forearm; Translations: [Pain of right forearm] Onset: 03-08-2023 Episodic Other disorders of stomach and duodenum (20 sources) Gastroparesis syndrome; Translations: [Gastroparesis] Onset: 07-16-2022 Episodic Other disorders of stomach and duodenum (1 source) Gastroparesis; Translations: [Gastroparesis] Onset: 07-17-2022 Episodic Other female genital disorders (5 sources) Cervicovaginal cytology: Low grade squamous intraepithelial lesion; Translations: [Low grade squamous intraepithelial lesion on cytologic smear of cervix (LGSIL)] Onset: 03-30-2017 03-30-2017 Episodic Other injuries and conditions due to external causes (1 source) Unspecified injury of lower back, initial encounter; Translations: [Tailbone injury, initial encounter] Onset: 03-08-2023 Episodic Other lower respiratory disease (1 source) Snoring; Translations: [Snoring] Onset: 02-02-2023 Episodic Other lower respiratory disease (1 source) Other abnormalities of breathing; Translations: [Gasping for breath] Onset: 02-02-2023 Episodic Other lower respiratory disease (1 source) Apnea, not elsewhere classified; Translations: [Witnessed episode of apnea] Onset: 02-02-2023 Episodic Other upper respiratory infections (11 sources) Upper respiratory infection; Translations: [Acute upper respiratory infection, unspecified] Onset: 08-10-2010 Resolved: 08-31-2010 08-10-2010 Episodic Residual codes; unclassified (20 sources) Abnormal cytology findings; Translations: [ASCUS with positive high risk HPV] Onset: 07-15-2012 07-15-2012 Episodic Residual codes; unclassified (1 source) Tobacco use; Translations: [Tobacco use] Onset: 05-07-2023 Episodic Residual codes; unclassified (2 sources) Insomnia, unspecified; Translations: [Frequent nocturnal awakening] Onset: 02-02-2023 Episodic Residual codes; unclassified (1 source) Pain, unspecified; Translations: [Pain] Onset: 08-22-2022 Episodic Skin and subcutaneous tissue infections (17 sources) Abscess of abdominal wall; Translations: [Abscess of buttock] Onset: 09-26-2016 09-26-2016 Episodic Results Test Name Value Interpretation Reference Range Facil ity Vital Signs Date Time Vital Sign Value Performing Clinician Facility 07-18-2023 11:16-0500 Diastolic Blood Pressure Non-Invasive 74 mm[Hg] DONTE SCHMIDT MD [facility] 07-18-2023 11:16-0500 Heart rate 74 /min DONTE SCHMIDT MD [facility] 07-18-2023 11:16-0500 Respiratory rate 18 /min DONTE SCHMIDT MD [facility] 07-18-2023 11:16-0500 Systolic Blood Pressure Non-Invasive 128 mm[Hg] DONTE SCHMIDT MD [facility] 07-18-2023 09:50-0500 Body temperature 98.96 [degF] DONTE SCHMIDT MD [facility] 07-18-2023 09:50-0500 Body weight 107.4 kg DONTE SCHMIDT MD [facility] 07-18-2023 09:50-0500 Diastolic Blood Pressure Non-Invasive 85 mm[Hg] DONTE SCHMIDT MD [facility] 07-18-2023 09:50-0500 Heart rate 96 /min DONTE SCHMIDT MD [facility] 07-18-2023 09:50-0500 Respiratory rate 20 /min DONTE SCHMIDT MD [facility] 07-18-2023 09:50-0500 Systolic Blood Pressure Non-Invasive 137 mm[Hg] DONTE SCHMIDT MD [facility] 06-30-2023 09:51-0500 Body temperature 97.5 [degF] Zenaida Praisler-Wood SERVICES TECH.SUPERVISOR DRYING AND WINDING Work Phone: [facility] 06-30-2023 09:51-0500 Body weight 89 kg Zenaida Praisler-Wood SERVICES TECH.SUPERVISOR [employer]YING [employer] WINDING Work Phone: [facility] 06-30-2023 09:51-0500 Diastolic blood pressure 116 mm[Hg] Zenaida Praisler-Wood SERVICES TECH.SUPERVISOR [employer]YING [employer] WINDING Work Phone: [facility] 06-30-2023 09:51-0500 Heart rate 122 /min Zenaida Praisler-Wood SERVICES TECH.SUPERVISOR [employer]YING [employer] WINDING Work Phone: [facility] 06-30-2023 09:51-0500 Respiratory rate 18 /min Zenaida Praisler-Wood SERVICES TECH.SUPERVISOR [employer]YING AND WINDING Work Phone: [facility] 06-30-2023 09:51-0500 SaO2% (BldA) [Mass fraction] 98 % Zenaida Praisler-Wood SERVICES TECH.SUPERVISOR DRYING AND WINDING Work Phone: [facility] 06-30-2023 09:51-0500 Systolic blood pressure 170 mm[Hg] Zenaida ElyArmando SERVICES TECH.SUPERVISOR [employer]YING [employer] WINDING Work Phone: [facility] 05-07-2023 13:33-0400 Body height 172.7 cm Kathe Reynolds MD Work Phone: [facility] 05-07-2023 13:33-0400 Body temperature 98.1 [degF] Kathe Reynolds MD Work Phone: [facility] 05-07-2023 13:33-0400 Body weight 94.17 kg Kathe Reynolds MD Work Phone: [facility] 05-07-2023 13:33-0400 Diastolic blood pressure 108 mm[Hg] Kathe Reynolds MD Work Phone: [facility] 05-07-2023 13:33-0400 Heart rate 114 /min Kathe Reynolds MD Work Phone: [facility] 05-07-2023 13:33-0400 Respiratory rate 12 /min Kathe Reynolds MD Work Phone: [facility] 05-07-2023 13:33-0400 SaO2% (BldA) [Mass fraction] 100 % Kathe Reynolds MD Work Phone: [facility] 05-07-2023 13:33-0400 Systolic blood pressure 180 mm[Hg] Kathe Reynolds MD Work Phone: [facility] 05-05-2023 16:24-0400 Diastolic Blood Pressure Non-Invasive 83 1 NOVEMBER [employer]ALE SERVICES TECH-SUPERVISOR DRYING [employer] WINDING [facility] 05-05-2023 16:24-0400 Heart rate 79 /min NOVEMBER [employer] SERVICES TECH-SUPERVISOR DRYING [employer] WINDING [facility] 05-05-2023 16:24-0400 Respiratory rate 20 /min NOVEMBER [employer] SERVICES TECH-SUPERVISOR DRYING AND WINDING [facility] 05-05-2023 16:24-0400 Systolic Blood Pressure Non-Invasive 134 1 NOVEMBER [employer] SERVICES TECH-SUPERVISOR DRYING AND WINDING [facility] 05-05-2023 12:18-0400 Body temperature 97.88 [degF] NOVEMBER [employer] SERVICES TECH-SUPERVISOR [employer]YING [employer] WINDING [facility] 05-05-2023 12:18-0400 Diastolic Blood Pressure Non-Invasive 66 1 NOVEMBER [employer] SERVICES TECH-SUPERVISOR DRYING AND WINDING [facility] 05-05-2023 12:18-0400 Heart rate 79 /min NOVEMBER [employer] SERVICES TECH-SUPERVISOR DRYING AND WINDING [facility] 05-05-2023 12:18-0400 Respiratory rate 20 /min NOVEMBER [employer] SERVICES TECH-SUPERVISOR DRYING AND WINDING [facility] 05-05-2023 12:18-0400 Systolic Blood Pressure Non-Invasive 125 1 NOVEMBER [employer] SERVICES TECH-SUPERVISOR DRYING AND WINDING [facility] 05-05-2023 07:27-0400 Body temperature 97.88 [degF] NOVEMBER [employer] SERVICES TECH-SUPERVISOR DRYING AND WINDING [facility] 05-05-2023 07:27-0400 Diastolic Blood Pressure Non-Invasive 65 1 NOVEMBER [employer] SERVICES TECH-SUPERVISOR DRYING AND WINDING [facility] 05-05-2023 07:27-0400 Heart rate 70 /min NOVEMBER [employer] SERVICES TECH-SUPERVISOR DRYING AND WINDING [facility] 05-05-2023 07:27-0400 Respiratory rate 20 /min NOVEMBER [employer] SERVICES TECH-SUPERVISOR DRYING AND WINDING [facility] 05-05-2023 07:27-0400 Systolic Blood Pressure Non-Invasive 115 1 NOVEMBER [employer] SERVICES TECH-SUPERVISOR DRYING AND WINDING [facility] 05-05-2023 00:21-0400 Body height 172.7 cm ANA ROSA [employer] SERVICES TECH-SUPERVISOR DRYING [employer] WINDING [facility] 05-05-2023 00:21-0400 Body weight 93.3 kg ANA ROSA [employer] SERVICES TECH-SUPERVISOR [employer]YING [employer] WINDING [facility] 05-05-2023 00:21-0400 Body weight 31.28 kg/m2 NOVEMBER [employer] SERVICES TECH-SUPERVISOR [employer]YING [employer] WINDING [facility] 05-05-2023 00:13-0400 Body temperature 98.42 [degF] ANA ROSA [employer] SERVICES TECH-SUPERVISOR DRYING AND WINDING [facility] 05-05-2023 00:13-0400 Heart rate 88 /min ANA ROSA [employer] SERVICES TECH-SUPERVISOR DRYING AND WINDING [facility] 05-05-2023 00:13-0400 Reason For Taking VItal Signs ANA ROSA [employer] SERVICES TECH-SUPERVISOR DRYING AND WINDING [facility] 05-04-2023 23:39-0400 Heart rate 98 /min ANA ROSA [employer] SERVICES TECH-SUPERVISOR DRYING AND WINDING [facility] 05-04-2023 23:39-0400 Reason For Taking VItal Signs [facility] SERVICES TECH-SUPERVISOR DRYING AND WINDING [facility] 05-04-2023 22:05-0400 Heart rate 96 /min ANA ROSA [employer] SERVICES TECH-SUPERVISOR DRYING AND WINDING [facility] 05-04-2023 22:05-0400 Reason For Taking VItal Signs [facility] SERVICES TECH-SUPERVISOR DRYING AND WINDING [facility] 03-20-2023 16:39-0400 Body temperature 97.9 [degF] Greyson Severino SERVICES TECH.SUPERVISOR [employer]YING [employer] WINDING Work Phone: [facility] 03-20-2023 16:39-0400 Body weight 89.54 kg Greyson Haq SERVICES TECH.SUPERVISOR [employer]YING [employer]INDING Work Phone: [facility] 03-20-2023 16:39-0400 Diastolic blood pressure 82 mm[Hg] Greyson Pendlebury SERVICES TECH.SUPERVISOR [employer]YING [employer] WINDING Work Phone: [facility] 03-20-2023 16:39-0400 Heart rate 96 /min [facility] TECH.SUPERVISOR [employer]YING [employer] WINDING Work Phone: [facility] 03-20-2023 16:39-0400 Respiratory rate 16 /min [facility] SERVICES TECH.SUPERVISOR [employer]YING [employer] WINDING Work Phone: [facility] 03-20-2023 16:39-0400 SaO2% (BldA) [Mass fraction] 96 % [facility] SERVICES TECH.SUPERVISOR [employer]YING [employer] WINDING Work Phone: [facility] 03-20-2023 16:39-0400 Systolic blood pressure 148 mm[Hg] Greyson Pendlebury SERVICES TECH.SUPERVISOR [employer]YING [employer] WINDING Work Phone: [facility] 03-08-2023 19:45-0400 Body temperature 98.29 [degF] Darwin Athy PA-C Work Phone: [facility] 03-08-2023 19:45-0400 Body weight 89.27 kg Darwin Athy PA-C Work Phone: [facility] 03-08-2023 19:45-0400 Diastolic blood pressure 84 mm[Hg] Darwin Athy PA-C Work Phone: [facility] 03-08-2023 19:45-0400 Heart rate 98 /min Darwin Athy PA-C Work Phone: [facility] 03-08-2023 19:45-0400 Respiratory rate 18 /min Darwin Athy PA-C Work Phone: [facility] 03-08-2023 19:45-0400 SaO2% (BldA) [Mass fraction] 99 % Darwin Athy PA-C Work Phone: [facility] 03-08-2023 19:45-0400 Systolic blood pressure 144 mm[Hg] Darwin Athy PA-C Work Phone: [facility] 01-11-2023 19:44-0400 Body temperature 97.9 [degF] Nelly Burns SERVICES TECH.SUPERVISOR [employer]YING [employer]INDING Work Phone: [facility] 01-11-2023 19:44-0400 Body weight 86.73 kg Nelly Burns SERVICES TECH.SUPERVISOR [employer]YING [employer] Work Phone: [facility] 01-11-2023 19:44-0400 Diastolic blood pressure 86 mm[Hg] Nelly Burns SERVICES TECH.SUPERVISOR [employer] Work Phone: [facility] 01-11-2023 19:44-0400 Heart rate 88 /min Nelly Burns SERVICES TECH.SUPERVISOR [employer] Work Phone: [facility] 01-11-2023 19:44-0400 Respiratory rate 18 /min Nelly Burns SERVICES TECH.SUPERVISOR [employer] Work Phone: [facility] 01-11-2023 19:44-0400 Systolic blood pressure 148 mm[Hg] Nelly Burns SERVICES TECH.SUPERVISOR [employer]ING Work Phone: [facility] 12-14-2022 08:59-0400 Body height 170.2 cm Ana Edwards SERVICES TECH.SUPERVISOR [employer]ING Work Phone: [facility] 12-14-2022 08:59-0400 Body weight 93.89 kg Ana Grace SERVICES TECH.SUPERVISOR [employer] Work Phone: [facility] 12-14-2022 08:59-0400 Diastolic blood pressure 94 mm[Hg] Ana Edwards SERVICES TECH.SUPERVISOR [employer] Work Phone: [facility] 12-14-2022 08:59-0400 Heart rate 97 /min Ana Edwards SERVICES TECH.SUPERVISOR [employer]ING Work Phone: [facility] 12-14-2022 08:59-0400 SaO2% (BldA) [Mass fraction] 96 % Ana Edwards SERVICES TECH.SUPERVISOR [employer] Work Phone: [facility] 12-14-2022 08:59-0400 Systolic blood pressure 151 mm[Hg] Ana Edwards SERVICES TECH.SUPERVISOR [employer] Work Phone: [facility] 10-12-2022 08:49-0500 Body height 172 cm [employer] Work Phone: [facility] 10-12-2022 08:49-0500 Body weight 94 kg [employer] Work Phone: [facility] 10-12-2022 08:49-0500 Diastolic blood pressure 85 mm[Hg] [employer] Work Phone: [facility] 10-12-2022 08:49-0500 Heart rate 104 /min [employer] Work Phone: [facility] 10-12-2022 08:49-0500 Systolic blood pressure 144 mm[Hg] [employer] Work Phone: [facility] 10-05-2022 14:37-0500 Body height 172.7 cm Roman Pabon MD Work Phone: [facility] 10-05-2022 14:37-0500 Body temperature 98.4 [degF] Roman Pabon MD Work Phone: [facility] 10-05-2022 14:37-0500 Body weight 93.98 kg Roman Pabon MD Work Phone: [facility] 10-05-2022 14:37-0500 Diastolic blood pressure 100 mm[Hg] Roman Pabon MD Work Phone: [facility] 10-05-2022 14:37-0500 Heart rate 96 /min Roman Pabon MD Work Phone: [facility] 10-05-2022 14:37-0500 Systolic blood pressure 150 mm[Hg] Roman Pabon MD Work Phone: [facility] 09-14-2022 14:02-0500 Body height 172.7 cm Leighton Caraballo MD Work Phone: [facility] 09-14-2022 14:02-0500 Body temperature 98.2 [degF] Leighton Caraballo MD Work Phone: [facility] 09-14-2022 14:02-0500 Body weight 92.99 kg Leighton Caraballo MD Work Phone: [facility] 09-14-2022 14:02-0500 Diastolic blood pressure 94 mm[Hg] Leighton Caraballo MD Work Phone: [facility] 09-14-2022 14:02-0500 Heart rate 117 /min Leighton Caraballo MD Work Phone: [facility] 09-14-2022 14:02-0500 SaO2% (BldA) [Mass fraction] 100 % Leighton Caraballo MD Work Phone: [facility] 09-14-2022 14:02-0500 Systolic blood pressure 138 mm[Hg] Leighton Caraballo MD Work Phone: [facility] 09-12-2022 15:57-0500 Body height 172.7 cm Leighton Caraballo MD Work Phone: [facility] 09-12-2022 15:57-0500 Body temperature 97.59 [degF] Leighton Caraballo MD Work Phone: [facility] 09-12-2022 15:57-0500 Body weight 93.26 kg Leighton Caraballo MD Work Phone: [facility] 09-12-2022 15:57-0500 Diastolic blood pressure 90 mm[Hg] Leighton Caraballo MD Work Phone: [facility] 09-12-2022 15:57-0500 Heart rate 127 /min Leighton Caraballo MD Work Phone: [facility] 09-12-2022 15:57-0500 SaO2% (BldA) [Mass fraction] 95 % Leighton Caraballo MD Work Phone: [facility] 09-12-2022 15:57-0500 Systolic blood pressure 142 mm[Hg] Leighton Caraballo MD Work Phone: [facility] 02-18-2022 15:14-0400 Body temperature 98.4 [degF] Christiano Pennington MD Work Phone: [facility] 02-18-2022 15:14-0400 Body weight 100.25 kg Christiano Pennington MD Work Phone: [facility] 02-18-2022 15:14-0400 Diastolic blood pressure 72 mm[Hg] Christiano Pennington MD Work Phone: [facility] 02-18-2022 15:14-0400 Heart rate 96 /min Christiano Pennington MD Work Phone: [facility] 02-18-2022 15:14-0400 Respiratory rate 16 /min Christiano Pennington MD Work Phone: [facility] 02-18-2022 15:14-0400 SaO2% (BldA) [Mass fraction] 98 % Christiano Pennington MD Work Phone: [facility] 02-18-2022 15:14-0400 Systolic blood pressure 136 mm[Hg] Christiano Pennington MD Work Phone: [facility] 12-27-2021 19:09-0400 Body temperature 96.8 [degF] Zenaida Praisler-Wood SERVICES TECH.SUPERVISOR [employer]ING Work Phone: [facility] 12-27-2021 19:09-0400 Body weight 96.62 kg Zenaida Praisler-Wood SERVICES TECH.SUPERVISOR [employer]YING [employer]ING Work Phone: [facility] 12-27-2021 19:09-0400 Diastolic blood pressure 80 mm[Hg] Zenaida Praisler-Wood SERVICES TECH.SUPERVISOR [employer]YING [employer]ING Work Phone: [facility] 12-27-2021 19:09-0400 Heart rate 92 /min Zenaida Praisler-Wood SERVICES TECH.SUPERVISOR [employer]YING [employer]ING Work Phone: [facility] 12-27-2021 19:09-0400 Respiratory rate 16 /min Zenaida Praisler-Wood SERVICES TECH.SUPERVISOR [employer]YING [employer]ING Work Phone: [facility] 12-27-2021 19:09-0400 SaO2% (BldA) [Mass fraction] 97 % Zenaida Praisler-Wood SERVICES TECH.SUPERVISOR [employer]YING [employer]ING Work Phone: [facility] 12-27-2021 19:09-0400 Systolic blood pressure 132 mm[Hg] Zenaida CerratoNickoDonaldo MARTEMarlenSUPERVISOR DRYING AND WINDING Work Phone: [facility] 06-19-2017 10:48-0500 BMI (Body Mass Index) 42.6 kg/m2 Beulah Sanabria MD [facility] 06-19-2017 10:48-0500 Body Temperature 98.2 [degF] Beulah Sanabria MD [facility] 06-19-2017 10:48-0500 BP Diastolic 102 mm[Hg] Beulah Sanabria MD [facility] 06-19-2017 10:48-0500 BP Systolic 168 mm[Hg] Beulah Sanabria MD [facility] 06-19-2017 10:48-0500 Height 170.18 cm Beulah Sanabria MD [facility] 06-19-2017 10:48-0500 Weight 123.38 kg Beulah Sanabria MD [facility] 12-14-2016 13:29-0400 BMI (Body Mass Index) 41 kg/m2 Deanna Henry LPN [facility] Work Phone: 12-14-2016 13:29-0400 Body Temperature 98 [degF] Deanna Henry LPN [facility] Work Phone: 12-14-2016 13:29-0400 Body Temperature 98.01 [degF] Deanna Henry DELMI [facility] Work Phone: 12-14-2016 13:29-0400 Body weight 118.75 kg Deanna Henry LPN [facility] Work Phone: 12-14-2016 13:29-0400 BP Diastolic 88 mm[Hg] Deanna Henry LPN [facility] Work Phone: 12-14-2016 13:29-0400 BP Systolic 132 mm[Hg] Deanna Henry LPN [facility] Work Phone: 12-14-2016 13:29-0400 Height 170.18 cm Deanna Henry LPN [facility] Work Phone: 12-14-2016 13:29-0400 Pulse (Heart Rate) 89 /min Deanna [facility] Work Phone: 12-14-2016 13:29-0400 Pulse Oximetry 97 % Deanna Stevenson [facility] Work Phone: 12-14-2016 13:29-0400 Respiratory Rate 16 /min Deanna Stevenson [facility] Work Phone: 12-14-2016 13:29-0400 Weight 118.75 kg Bonnie Chiu NP [facility] 09-26-2016 12:29-0500 BMI (Body Mass Index) 41.81 kg/m2 Valeriy Avitia MD [facility] Work Phone: 09-26-2016 12:29-0500 Body Temperature 97.7 [degF] Valeriy Avitia MD [facility] Work Phone: 09-26-2016 12:29-0500 BP Diastolic 93 mm[Hg] Valeriy Avitia MD [facility] Work Phone: 09-26-2016 12:29-0500 BP Systolic 127 mm[Hg] Valeriy Avitia MD [facility] Work Phone: 09-26-2016 12:29-0500 Pulse (Heart Rate) 76 /min [facility] Work Phone: 09-26-2016 12:29-0500 Pulse Oximetry 99 % Valeriy Avitia MD [facility] Work Phone: 09-26-2016 12:29-0500 Respiratory Rate 18 /min Valeriy Avitia MD [facility] Work Phone: 09-26-2016 12:29-0500 Weight 121.11 kg Valeriy Avitia MD [facility] Work Phone: 09-18-2016 06:25-0500 Body surface area Derived from formula 162.11 mL/min Deanna Henry FURNITURE [employer]KER [facility] Work Phone: 08-10-2010 12:37-0500 Height 170.18 cm Valeriy Avitia MD [facility] Work Phone: Encounters Encounter Date Encounter Type Care Provider Facility Start: 08-17-2023 End: 08-18-2023 ambulatory [facility] Facility:[facility] Start: 08-13-2023 End: 08-13-2023 [facility] Facility:[facility] Start: 07-31-2023 End: 07-31-2023 ambulatory [facility] Facility:[facility] Start: 07-26-2023 End: 07-26-2023 [facility] Facility:[facility] Start: 07-18-2023 End: 07-18-2023 Emergency department patient visit DONTE SCHMIDT MD Facility: Start: 07-18-2023 End: 07-18-2023 Emergency department patient visit DONTE SCHMIDT MD [facility] Start: 07-14-2023 ambulatory Ana Jarquin [place] SERVICES TECH.SUPERVISOR [employer]YING [employer]ING Work Phone: Neurology Procedures Date Procedure Procedure Detail Performing Clinician Start: 06-30-2023 Gluc bld gluc mntr d ev cleared fda spec home use Zenaida Roman SERVICES TECH.SUPERVISOR [employer] Work Phone: Start: 06-30-2023 Urnls dip stick/tabl et rgnt auto w/o microscopy Zenaida Roman SERVICES TECH.SUPER[employer] Work Phone: Start: 04-26-2023 Radex forearm 2 views B alise Rodriguez MD Work Phone: Start: 04-12-2023 Radex forearm 2 views B alise Rodriguez MD Work Phone: Start: 03-21-2023 Radex forearm 2 views D brynn Reece DO Work Phone: Start: 03-16-2023 Radex forearm 2 views D brynn Reece DO Work Phone: Start: 10-05-2022 Creatinine other source Roman Pabon MD Work Phone: Start: 10-05-2022 Urine albumin quantitative Roman Pabon MD Work Phone: Start: 09-29-2022 Gastric emptying yue ging study Renata Constantino DO Work Phone: Start: 08-22-2022 Radex foot complete minimum 3 views Calos Bravo Work Phone: Start: 06-15-2022 Mri spinal canal tho racic w/o & w/contr parrishl Dorothy Stephenson MD Work Phone: Start: 02-06-2022 Adult depression scr eening assessment Beronica Dunn RN Start: 09-07-2021 Adult depression scr eening assessment Zenaida Roman APRN.CNP Work Phone: Start: 06-19-2017 End: 06-19-2017 *CBC with Differential Beulah kee MD Work Phone: Start: 06-19-2017 End: 06-20-2017 Thyrotropin [Units/volume] in Serum or Plasma Beulah Sanabria MD Work Phone: Start: 06-19-2017 End: 06-20-2017 Thyroxine (T4) [Mass/volume] in Serum or Plasma Beulah Sanabria MD Work Phone: Start: 03-30-2017 End: 03-30-2017 Colposcopy entire vagina w/cervix if present Beulah Sanabria MD Work Phone: Start: 03-30-2017 End: 03-30-2017 Insertion intrauterine device iud Beulah Sanabria MD Work Phone: Start: 03-30-2017 End: 03-30-2017 Exam of vagina w/scope Beulah kee MD Work Phone: Start: 03-30-2017 End: 03-30-2017 Insert intrauterine device Beulah small MD Work Phone: Start: 12-14-2016 End: 12-14-2016 Documentation of current medications Deanna Ruggeri [employer] Start: 12-14-2016 End: 12-14-2016 Smoking cessation education Deanna Henry [employer]URNIT[employer] Start: 06-27-2010 Mammography Ana M Mills [facility] Work Phone: Knee meniscus struct ure (body structure) ANA ROSA RUIZ SERVICES TECH-SUPERVISOR [employer]YING [employer] Plan of Treatment Date Care Activity Detail Author Start: 01-27-2025 HPV TESTING HPV TESTING [facility] Start: 01-27-2025 PAP TESTING PAP TESTING [facility] Start: 04-02-2024 3 comp foot exam completed DIABETIC FOOT EXAM [facility] Start: 10-06-2023 Hepatitis B screening URINE ALBUMIN:CREATININE RATIO [facility] Start: 08-22-2023 3 comp foot exam completed DIABETIC FOOT EXAM [facility] Start: 07-03-2023 Hemoglobin A1c/Hemoglobin.total in Blood HBA1C [facility] Start: 06-29-2023 End: 09-28-2023 CELIAC SCREEN WITH REFLEX CELIAC SCREEN WITH REFLEX Lab Routine Small fiber neuropathy Expected: 06/29/2023, Expires: 09/28/2023 [facility] Work Phone: Immunizations Immunization Date Immunization Notes Care Provider Michael pitt 08-27-2017 influenza, injectabl e, quadrivalent, contains preservative Zenaida Praisler-Wood SERVICES TECH.SUPERVISOR [employer]YING [employer] Work Phone: [facility] Work Phone: 08-27-2017 influenza virus vacc ine, unspecified formulation Willis Rodriguez MD Work Phone: [facility] 09-15-2016 influenza, seasonal, injectable Zenaida Praisler-Wood SERVICES TECH.SUPERVISOR [employer] Work Phone: [facility] 09-15-2016 influenza, seasonal, injectable, preservative free Zenaida Praisler-Wood SERVICES TECH.SUPERVISOR [employer]ING Work Phone: [facility] Work Phone: 05-20-2014 influenza, seasonal, injectable Zenaida Praisler-Wood SERVICES TECH.SUPERVISOR [employer] Work Phone: [facility] Work Phone: 04-30-2013 influenza virus vacc ine, unspecified formulation Zenaida Cerrato-Wood SERVICES TECH.[facility] Work Phone: [facility] Work Phone: 06-17-2012 influenza virus vacc ine, unspecified formulation Zenaida Cerrato-Wood SERVICES TECH.[facility] Work Phone: [facility] 07-04-2010 hepatitis A vaccine, unspecified formulation Zenaida Cerrato-Donaldo SERVICES TECH.[facility] Work Phone: [facility] Work Phone: 07-04-2010 tetanus toxoid, redu yuridia diphtheria toxoid, and acellular pertussis vaccine, adsorbed Zenaida Cerrato-Donaldo SERVICES TECH.[facility] Work Phone: [facility] Work Phone: 05-17-2010 hepatitis B vaccine, adult dosage Zenaida Cerrato-Donaldo SERVICES TECH.[facility] Work Phone: [facility] 05-17-2010 hepatitis B vaccine, unspecified formulation Zenaida Roman SERVICES TECH.[facility] Work Phone: [facility] 04-21-2010 hepatitis B vaccine, pediatric or pediatric/adolescent dosage Zenaida Cerrato-Donaldo SERVICES TECH.[facility] Work Phone: [facility] 04-21-2010 pneumococcal polysaccharide vaccine, 23 valent Zenaida Roman SERVICES TECH.[facility] Work Phone: [facility] 06-25-2008 influenza virus vacc ine, unspecified formulation Zenaida Roman SERVICES TECH.SU[employer] Work Phone: [facility] 07-18-2007 influenza virus vacc ine, unspecified formulation Zenaida Praisrael-Wood SERVICES TECH.[facility] Work Phone: [facility] 06-14-2006 hepatitis B vaccine, adult dosage Zenaida Cerrato-Wood SERVICES TECH.SUPER[employer] Work Phone: [facility] Work Phone: 06-14-2006 influenza virus vacc ine, unspecified formulation Zenaida Cerrato-Wood SERVICES TECH.SUPERVIS[employer] Work Phone: [facility] Work Phone: Payers Date Payer Category Payer Medicaid [id number] 2023 Medicaid [id number] 2023 Unknown [id number] 2023 Private Health Insurance [id number] 2022 Medicaid [id number] 2022 Medicaid [id number] 2018 Medicare [id number] 2011 Medicaid [id number] 2009 Medicare [id number] 2009 Medicare [id number] 1983 Unknown [id number] 1983 Unknown [id number] Social History Date Type Detail Facility Start: 10-25-2017 End: 03-19-2022 Tobacco smoking status NHIS Occasional tobacco smoker [facility] History of tobacco use Cigar Smoker [facility] Start: 10-25-2017 End: 03-22-2023 Tobacco use and exposure Smokeless tobacco non-user [facility] Start: 12-27-2021 End: 04-26-2023 Alcohol intake Current non-drinker of alcohol (finding) [facility] Start: 06-21-2021 History SDOH Alcohol Frequency 1 [facility] Start: 06-21-2021 History SDOH Alcohol Std Drinks 98 [facility] Start: 06-21-2021 History SDOH Social Connections Phone 5 [facility] Start: 06-21-2021 History SDOH Social Connections Get Together 2 [facility] Start: 06-21-2021 History SDOH Social Connections Meetings 3 [facility] Start: 06-21-2021 History SDOH Physical Activity DPW 0 [facility] Start: 04-18-2016 End: 03-19-2022 Tobacco Comment smokes cigars 4 per day [facility] Start: 1985 Sex Assigned At Female [facility] Start: 12-17-2021 End: 12-14-2022 Exposure to SARS-CoV-2 (event) Not sure [facility] Start: 01-03-2022 End: 01-13-2022 Exposure to SARS-CoV-2 (event) Unable to assess [facility] Work Phone: Start: 06-20-2021 End: 12-14-2022 History of Social function [facility] Start: 06-20-2021 End: 12-14-2022 Social connection and isolation panel [facility] Do you belong to any clubs or organizations such as congregational groups, unions, fraternal or athletic groups, or school groups? Yes [facility] Are you now , , , , never or living with a partner? [facility] How often to you hav e a drink containing alcohol? Never [facility] How many standard dr inks containing alcohol do you have on a typical day? Patient refused [facility] Do you feel stress - tense, restless, nervous, or anxious, or unable to sleep at night because your mind is troubled all the time - these days [OSQ] To some extent [facility] (I/We) worried wheth er (my/our) food would run out before (I/we) got money to buy more. Never true [facility] In the past 12 month s, was there a time when you were not able to pay the mortgage or rent on time? No [facility] Start: 06-08-2021 Gender identity Identifies as female gender (finding) [facility] Start: 06-08-2021 Sexual orientation Heterosexual (finding) [facility] Start: 03-22-2023 End: 05-04-2023 Tobacco smoking status NHIS Smokes tobacco daily [facility] Start: 05-07-2023 End: 06-30-2023 Alcohol intake Ex-drinker (finding) [facility] Medical Equipment Procedure Code Equipment Code Equipment Origin al Text Equipment Identifier Dates Dev Sut Crv Tip Menis [facility] [id number] Start: 11-13-2014 Functional Status Date Assessment Result Facility 07-18-2023 Functional Status Standard Safet y ID band on, Allergy Band on, Call device within reach, Bed in low position, Wheels locked, Safety level maintained [facility] 05-05-2023 Functional Status Nurse Gabriella mcduffie [id number] Performed 7am-7pm [facility] 05-05-2023 Functional Status Standard Safet y ID band on, Allergy Band on, Call device within reach, Bed in low position, Wheels locked, Upper/Half-Length side-rails up, Phone within reach, personal items within reach, Safety level maintained, Non-Slip footwear [facility] 05-05-2023 Functional Status Repositions self [facility] 05-05-2023 Functional Status Done [facility] 05-05-2023 Functional Status Room check performed [facility] 05-05-2023 Functional Status [facility] Mental Status Date Assessment Result Facility 07-18-2023 Mental Status Orientation Oriented x 4 [facility] 05-05-2023 Mental Status Orientation Oriented x 4 [facility] 05-05-2023 Mental Status [facility] 05-04-2023 Mental Status [facility] Clinical Notes 11-11-2015 to 08-13-2023 Telephone Encounter - Yuko Tejada RN - 07/16/2023 12:22 PM ESTTelephone Encounter - Olivia Spence RN - 07/12/2023 11:19 AM ESTPatient Instructions Note Date & Type Note Facility 08-13-2023 Note [facility] 07-31-2023 Note [facility] 07-18-2023 Hospital Discharge instructions Patient Education 07/18/2023 11:04:52 Allergic Reaction, Other (General) General Allergic Reactions An allergic reaction is a set of symptoms caused by an allergen. An allergen is something that causes a person s immune system to react. When a person comes in contact with an allergen, it causes the body to release chemicals. These include the chemical histamine. Histamine causes swelling and itching. It may affect the entire body. This is called a general allergic reaction. Often symptoms affect only 1 part of the body. This is called a local allergic reaction. You are having an allergic reaction. Almost anything can cause one. Different people are allergic to different things. It is usually something that you ate or swallowed, came into contact with by getting or putting it on your skin or clothes, or something you breathed in the air. This can be very annoying and sometimes scary. Most of us think of allergic reactions when we have a rash or itchy skin. Symptoms can include: Itching of the eyes, nose, and roof of the mouth Runny or stuffy nose Watery eyes Sneezing or coughing A blocked feeling in the ear Red, itchy rash called hives Red and purple spots Rash, redness, welts, blisters Itching, burning, stinging, pain Dry, flaky, cracking, scaly skin Severe symptoms include: Swelling of the face, lips, or other parts of the body Hoarse voice Trouble swallowing, feeling like your throat is closing Trouble breathing, wheezing Nausea, vomiting, diarrhea, stomach cramps Feeling faint or lightheaded, rapid heart rate Sometimes the cause may be obvious. But there are so many things that can cause a reaction that you may not be able to figure out. The most important things to help find your allergen are: Remembering when it started What you were doing at the time or just before that Any activities you were involved in Any new products or contacts Below are some common causes. But remember that almost anything can cause a reaction. You may not even be aware that you came into contact with one of these things: Dust, mold, pollen Plants (common ones are poison milana and poison oak, but there are many others) Animals Foods such as shrimp, shellfish, peanuts, milk products, gluten, and eggs. Also food colorings, flavorings, and additives. Insect bites or stings such as bees, mosquitos, fleas, ticks Medicines such as penicillin, sulfa medicines, amoxicillin, aspirin, and ibuprofen. But any medicine can cause a reaction. Jewelry such as nickel or gold. This can be new, or something you ve worn for a while, including zippers and buttons. Latex such as in gloves, clothes, toys, balloons, or some tapes. Some people allergic to latex may also have problems with foods like bananas, avocados, kiwi, papaya, or chestnuts. Lotions, perfumes, cosmetics, soaps, shampoos, skincare products, nail products Chemicals or dyes in clothing, linen, school photographer, hair dyes, soaps, iodine Many viruses and common colds can cause a rash that is not an allergic reaction. Sometimes it is hard to tell the difference between allergies, sensitivity, or an intolerance to something. This is especially true with food. Many things can cause diarrhea, vomiting, stomach cramps, and skin irritation. Home care The goal of treatment is to help relieve the symptoms and get you feeling better. The rash will usually fade over several days. But it can sometimes last a couple of weeks. Over the next couple of days, there may be times when it is gets a little worse, and then better again. Here are some things to do: If you know what you are allergic to, stay away from it. Future reactions could be worse than this one. Avoid tight clothing and anything that heats up your skin (hot showers or baths, direct sunlight). Heat will make itching worse. An ice pack will relieve local areas of intense itching and redness. To make an ice pack, put ice cubes in a plastic bag that seals at the top. Wrap it in a thin, clean towel. Don t put the ice directly on the skin because it can damage the skin. Oral diphenhydramine is an [id number] antihistamine sold at pharmacy and grocery stores. Unless a prescription antihistamine was given, diphenhydramine may be used to reduce itching if large areas of the skin are involved. It may make you sleepy. So be careful using it in the daytime or when going to school, working, or driving. Note: Don t use diphenhydramine if you have glaucoma or if you are a man with trouble urinating due to an enlarged prostate. There are other antihistamines that won t make you so sleepy. These are good choices for daytime use. Ask your pharmacist for suggestions. Don t use diphenhydramine cream on your skin. It can cause a further reaction in some people. To help prevent an infection, don't scratch the affected area. Scratching may worsen the reaction and damage your skin. It can also lead to an infection. Always check the affected for signs of an infection. Call your healthcare provider and ask what you can use to help decrease the itching. To decrease allergic reactions, try the following: Use heat-steam to clean your home Use high-efficiency particulate (HEPA) vacuums and filters Stay away from food and pet triggers Kill any cockroaches Clean your house often Follow-up care Follow up with your healthcare provider, or as advised. If you had a severe reaction today, or if you have had several mild to medium allergic reactions in the past, ask your provider about allergy testing. This can help you find out what you are allergic to. If your reaction included dizziness, fainting, or trouble breathing or swallowing, ask your provider about carrying auto-injectable epinephrine. Call 911 Call 911 if any of these occur: Trouble breathing or swallowing, wheezing Cool, moist, pale skin Shortness of breath Hoarse voice or trouble speaking Confused Very drowsy or trouble awakening Fainting or loss of consciousness Rapid heart rate Feeling of dizziness or weakness or a sudden drop in blood pressure Feeling of doom Feeling lightheaded Severe nausea or vomiting, or diarrhea Seizure Swelling in the face, eyelids, lips, mouth, throat or tongue Drooling When to seek medical advice Call your healthcare provider right away if any of these occur: Spreading areas of itching, redness or swelling Nausea or stomach cramps or abdominal pain Continuing or recurring symptoms Spreading areas of redness, swelling, or itching Signs of infection at the affected site: oSpreading redness oIncreased pain or swelling oFluid or colored drainage from the site oFever of 100.4 F (38 C) or above lasting for 24 to 48 hours, or as directed by your provider [id number] [employer]. [address] [place] [address]. All rights reserved. This information is not intended as a substitute for professional medical care. Always follow your healthcare professional's instructions. Follow Up Care 07/18/2023 09:41:47 With:Follow up with primary care provider Address:Unknown When:2-4 days [facility] 07-18-2023 Note Discharge Instructions Thank you for allowing [facility] to assist you with your healthcare needs. The following is important discharge information regarding your hospital visit. Diagnosis from Today's Visit Allergic reaction Itching What to Do Next Instructions from Your Care Team No qualifying data available. Post Acute Orders No qualifying data available. You Need to Schedule the Following Appointments Follow Up with Follow up with primary care provider When Within 2-4 days Allergies Keflex Saphris (Dizzy) amoxicillin (Itching, Rash) doxycycline Medications Please ask your primary doctor or pharmacist before taking any other medication not listed, including over the counter drugs, herbal medications, vitamins and or supplements as they may interact with your home medications. What How Much When Instructions Last Dose Unchanged albuterol (ProAir HFA MDI (90 mcg/ inh) inhalation aerosol) 2 puff(s) by inhalation Every 6 hours as needed for for wheezing Unchanged dulaglutide (Trulicity Pen 3 mg/ 0.5 mL subcutaneous solution) 0.5 Milliliter Subcutaneous Every week rotate injection sites Unchanged gabapentin (gabapentin 600 mg oral tablet) 2 tab(s) by mouth Two (2) times a day Unchanged insulin aspart (Novolog) (NovoLOG) 10 unit(s) Subcutaneous Three (3) times a day before meals Unchanged insulin degludec (Tresiba FlexTouch 100 units/ mL 3 mL subcutaneous solution) 40 unit(s) Subcutaneous Daily at bedtime Unchanged loratadine 10 Milligram by mouth Every day Unchanged losartan (Cozaar 25 mg oral tablet) 1 tab(s) by mouth Every day Unchanged metFORMIN (metFORMIN 500 mg oral tablet) 1 tab(s) by mouth Twice daily with meals Unchanged omeprazole (omeprazole 40 mg oral delayed release capsule) 1 cap by mouth Once a day Unchanged prazosin (prazosin 1 mg oral capsule) 1 cap by mouth Once a day Please take this list to your next doctor s visit. Bring all medications you take, including over the counter medications, herbals and other supplements with you to your doctor s visit. Patients and families are reminded to discard old lists and to update any records with all medication providers or retail pharmacies. Education Materials General Allergic Reactions An allergic reaction is a set of symptoms caused by an allergen. An allergen is something that causes a person s immune system to react. When a person comes in contact with an allergen, it causes the body to release chemicals. These include the chemical histamine. Histamine causes swelling and itching. It may affect the entire body. This is called a general allergic reaction. Often symptoms affect only 1 part of the body. This is called a local allergic reaction. You are having an allergic reaction. Almost anything can cause one. Different people are allergic to different things. It is usually something that you ate or swallowed, came into contact with by getting or putting it on your skin or clothes, or something you breathed in the air. This can be very annoying and sometimes scary. Most of us think of allergic reactions when we have a rash or itchy skin. Symptoms can include: Itching of the eyes, nose, and roof of the mouth Runny or stuffy nose Watery eyes Sneezing or coughing A blocked feeling in the ear Red, itchy rash called hives Red and purple spots Rash, redness, welts, blisters Itching, burning, stinging, pain Dry, flaky, cracking, scaly skin Severe symptoms include: Swelling of the face, lips, or other parts of the body Hoarse voice Trouble swallowing, feeling like your throat is closing Trouble breathing, wheezing Nausea, vomiting, diarrhea, stomach cramps Feeling faint or lightheaded, rapid heart rate Sometimes the cause may be obvious. But there are so many things that can cause a reaction that you may not be able to figure out. The most important things to help find your allergen are: Remembering when it started What you were doing at the time or just before that Any activities you were involved in Any new products or contacts Below are some common causes. But remember that almost anything can cause a reaction. You may not even be aware that you came into contact with one of these things: Dust, mold, pollen Plants (common ones are poison milana and poison oak, but there are many others) Animals Foods such as shrimp, shellfish, peanuts, milk products, gluten, and eggs. Also food colorings, flavorings, and additives. Insect bites or stings such as bees, mosquitos, fleas, ticks Medicines such as penicillin, sulfa medicines, amoxicillin, aspirin, and ibuprofen. But any medicine can cause a reaction. Jewelry such as nickel or gold. This can be new, or something you ve worn for a while, including zippers and buttons. Latex such as in gloves, clothes, toys, balloons, or some tapes. Some people allergic to latex may also have problems with foods like bananas, avocados, kiwi, papaya, or chestnuts. Lotions, perfumes, cosmetics, soaps, shampoos, skincare products, nail products Chemicals or dyes in clothing, linen, school photographer, hair dyes, soaps, iodine Many viruses and common colds can cause a rash that is not an allergic reaction. Sometimes it is hard to tell the difference between allergies, sensitivity, or an intolerance to something. This is especially true with food. Many things can cause diarrhea, vomiting, stomach cramps, and skin irritation. Home care The goal of treatment is to help relieve the symptoms and get you feeling better. The rash will usually fade over several days. But it can sometimes last a couple of weeks. Over the next couple of days, there may be times when it is gets a little worse, and then better again. Here are some things to do: If you know what you are allergic to, stay away from it. Future reactions could be worse than this one. Avoid tight clothing and anything that heats up your skin (hot showers or baths, direct sunlight). Heat will make itching worse. An ice pack will relieve local areas of intense itching and redness. To make an ice pack, put ice cubes in a plastic bag that seals at the top. Wrap it in a thin, clean towel. Don t put the ice directly on the skin because it can damage the skin. Oral diphenhydramine is an arcw-mls-sbndqnq antihistamine sold at pharmacy and grocery stores. Unless a prescription antihistamine was given, diphenhydramine may be used to reduce itching if large areas of the skin are involved. It may make you sleepy. So be careful using it in the daytime or when going to school, working, or driving. Note: Don t use diphenhydramine if you have glaucoma or if you are a man with trouble urinating due to an enlarged prostate. There are other antihistamines that won t make you so sleepy. These are good choices for daytime use. Ask your pharmacist for suggestions. Don t use diphenhydramine cream on your skin. It can cause a further reaction in some people. To help prevent an infection, don't scratch the affected area. Scratching may worsen the reaction and damage your skin. It can also lead to an infection. Always check the affected for signs of an infection. Call your healthcare provider and ask what you can use to help decrease the itching. To decrease allergic reactions, try the following: Use heat-steam to clean your home Use high-efficiency particulate (HEPA) vacuums and filters Stay away from food and pet triggers Kill any cockroaches Clean your house often Follow-up care Follow up with your healthcare provider, or as advised. If you had a severe reaction today, or if you have had several mild to medium allergic reactions in the past, ask your provider about allergy testing. This can help you find out what you are allergic to. If your reaction included dizziness, fainting, or trouble breathing or swallowing, ask your provider about carrying auto-injectable epinephrine. Call 911 Call 911 if any of these occur: Trouble breathing or swallowing, wheezing Cool, moist, pale skin Shortness of breath Hoarse voice or trouble speaking Confused Very drowsy or trouble awakening Fainting or loss of consciousness Rapid heart rate Feeling of dizziness or weakness or a sudden drop in blood pressure Feeling of doom Feeling lightheaded Severe nausea or vomiting, or diarrhea Seizure Swelling in the face, eyelids, lips, mouth, throat or tongue Drooling When to seek medical advice Call your healthcare provider right away if any of these occur: Spreading areas of itching, redness or swelling Nausea or stomach cramps or abdominal pain Continuing or recurring symptoms Spreading areas of redness, swelling, or itching Signs of infection at the affected site: oSpreading redness oIncreased pain or swelling oFluid or colored drainage from the site oFever of 100.4 F (38 C) or above lasting for 24 to 48 hours, or as directed by your provider [phone] [employer]. [address] [place] [address], [place] [address]. All rights reserved. This information is not intended as a substitute for professional medical care. Always follow your healthcare professional's instructions. Additional Information VACCINATE! IT SAVES LIVES! Members of the community who have not yet received the COVID-19 vaccine and would like to receive it can visit one of [facility] vaccine clinics. There are many vaccine clinic locations within the [facility]. For locations and available times, please visit www.[email or web address].[place].gov/ . It is important to note that some COVID mobile vaccine clinics are held outdoors and may be canceled in rainy or stormy conditions. To learn more about pediatric vaccinations (ages 5-11), we invite you to visit the [facility] webpage. [email or web address] To learn more about the COVID-19 vaccine, we invite you to visit the CDC website for a list of frequently asked questions. https://www.cdc.gov/coronavirus/2019 -ncov/vaccines/faq.html [facility] Patient Portal Access Instructions: Stay connected with your healthcare team and access your personal medical information anytime with the [facility] Patient Portal. If you would like a full copy of your medical records please contact the [facility] Medical Records Department Sunday through Sunday between 8a.m. and 4:30p.m. Please follow the directions below to access the portal: 1.Access the email account you provided upon registration to the special care hospital.2.Look for an invitation email from [facility].3.Open the email and access the invitation link: Accept Invitation to [facility]4.Fill in the required lara to create your account. Sign into [email or web address] with your username and password that you created in the above steps to stay up to date. You can then view a summary of results, a summary of your visits, and the ability to download your summaries to your computer or send the information securely to a physician. Remember that your healthcare information is confidential, so carefully consider who you will allow to register on the [facility] Patient Portal for access to your information. You can also access the [facility] Patient Portal on the [employer]. Simply click on Health Records under Health Data and then click on the [employer] logo. HOW TO SAFELY DISPOSE OF PRESCRIPTION MEDICATIONS Please use one of the following methods to safely dispose of your unused medications. 1.Use a drug disposal kit: the drug disposal pouch allows you to safely discard your old and unused drugs. Ask your nurse to give you one when you are discharged.2.Visit a local take-back location: Many local pharmacies and police departments have programs that collect old and unwanted prescription drugs. Call your local pharmacy or go to http://[employer]/3D6Hb6u to find one close to you.3.Make use of household items: Use cat litter or old coffee grounds to dispose medications if other options are not available. Mix your drugs with these household products, seal them in an airtight container and throw it into the garbage. Call [facility]: [phone] to be sure your drugs can be disposed of in this way. Some medicines may require a different approach.4.Never flush your medications down the toilet. IF YOU HAVE BEEN PRESCRIBED AN OPIOIDS FOR PAIN If you have been prescribed an opioid (such as hydrocodone, oxycodone or morphine), it is critical to understand the possible side effects and risks of opioid pain medications. Even when taken as directed, opioids can have several side effects including: Tolerance, meaning you might need to take more of a medication for the same pain relief. Nausea, vomiting and/or constipation. Sleepiness, dizziness, dry mouth, confusion, depression or itching. Physical dependence, meaning you have withdrawal symptoms when a medication is stopped ? this can develop within a few days. KNOW YOUR RESPONSIBILITIES It is important to know exactly how much and how often to take the opioid pain medications you are prescribed. Never take opioids in higher amounts or more often than prescribed. Do not combine opioids with alcohol or other drugs that cause drowsiness, such as benzodiazepines, also known as benzos, including diazepam and alprazolam, muscle relaxants or sleep aids. Never sell or share prescription opioids. This is illegal. Store opioids in a secure place and out of reach of others (including children, family, friends and visitors). The last page(s) of this document has been signed and retained as a CHART COPY Signatures Patient Education Materials Allergic Reaction, Other (General) Medication Leaflets My discharge plan and instructions have been reviewed and explained to me and IJONAS TAMERA M understand my current condition and have read and understand these discharge instructions. I have received a written copy of the plan/instructions. If I have questions, I am aware that I should contact my doctor. 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 Asking to advise on filling Prilosec. Message forwarded to LORENA Avina.SUPERVISOR DRYING AND WINDING Yuko Tejada RN, BSN documented in this encounter [facility] 07-12-2023 Miscellaneous Notes Patient asking for shower chair and compression stocking orders to be sent to [facility] to be filled. Asked admin team to fax these per her request. Hafsa Spence RN, BSN documented in this encounter [facility] 07-03-2023 Miscellaneous Notes IRB # [id number] [employer] / Study of Hypercortisolism in Patients with Difficult to Control Type 2 Diabetes Despite Receiving [id number] Therapies: Prevalence and Treatment with Korlym (Mifepristone) (CATALYST) Principle Inclusion Manager: Dr. Madeleine Sanchez Research Coordinators: Charly Reynolds Called patient to discuss participation in above listed study. Patient is interested and scheduled for 07/09/2023. documented in this encounter [facility] 06-30-2023 Note [facility] 06-30-2023 Note [facility] 06-30-2023 Instructions Zenaida Roman APRN.SUPERVISOR DRYING AND WINDING - 06/30/2023 10:53 AM EST ASSESSMENT/PLAN: 1. Burning with urination - ICD9: 788.1, ICD10: R30.0 (primary diagnosis) acute - UA positive for hematuria, proteinuria, and glucose (>1000) and trace ketones - Send urine for culture - UA DIP, URINE (POC) - URINE CULTURE 2. Acute cough - ICD9: 786.2, ICD10: R05.1 - XR CHEST 2V FRONTAL/LAT RESULT: Lines, tubes, and devices: None. Lungs and pleura: There is no focal consolidation, pleural effusion, or pneumothorax. Cardiomediastinal silhouette: Within normal limits. Bones and soft tissues: No acute osseous abnormality is identified. The imaged upper abdomen is within normal limits. IMPRESSION: No acute cardiopulmonary process. Assurance Specialist: GORDON Transcribe Date/Time: Jun 30 2023 10:34A Dictated by : MAYANK RANDALL MD 3. Glucosuria - ICD9: 791.5, ICD10: R81 - GLUCOSE, BLOOD (POC) 4. Hypertension, unspecified type - ICD9: 401.9, ICD10: I10 - Uncontrolled - Recommend home blood pressure monitoring, to bring results to next visit 5. Post-viral cough syndrome - ICD9: 786.2, ICD10: R05.8 - unable to prescribe steroids due to elevated blood sugars. - BENZONATATE 100 MG CAPSULE - Albuterol inhaler prescribed. - patient advised of elevated BP and glucose findings. She has an appointment with her gauge operator in 2 days. - Follow-up with your PCP in 3-5 days if symptoms have not improved or sooner if symptoms worsen - Discussed red flags and need for immediate medical evaluation if any occur. - Discussed supportive care treatment with fluids, rest and analgesia. - Discussed expected course of illness Zenaida Roman APRN.SUPERVISOR DRYING AND WINDING documented in this encounter [facility] 06-30-2023 History of Present illness Narrative Subjective UTI Associated symptoms include frequency. Pertinent negatives include no chills, no nausea, no vomiting, no hematuria, no urgency and no flank pain. Kathleen Mcdaniel is a 38 year old female who presents with dysuria x 2 weeks and chest feels a little tight and cough. She states she went to [facility] ER to be seen for cough and had an xray done, but was never placed in a room or saw a provider, and left after 3.5 hours of waiting. She was told later by her PCP that the chest xray showed possible pneumonia. She feels more tired than usual. She has not had a fever. She has a history of T2DM and typically uses a [employer] for blood sugar monitoring but has been having trouble with it so has not checked her blood sugars. She has a history of labile HTN and states her BP is always elevated. She takes COZAAR for this but has not taken it today-spent the night somewhere else and does not have her meds with her. Review of Systems Constitutional: Negative for chills and fever. HENT: Negative for congestion, ear pain and sore throat. Respiratory: Positive for cough, sputum production and shortness of breath. Gastrointestinal: Negative for abdominal pain, diarrhea, nausea and vomiting. Genitourinary: Positive for dysuria and frequency. Negative for flank pain, hematuria and urgency. Musculoskeletal: Negative for back pain. 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/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 MRSA (methicillin resistant staph aureus) culture positive chronic, legs, groins, armpit Necrotizing fasciitis (HCC) Obesity 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 Oligomenorrhea 10/27/2009 Other and unspecified hyperlipidemia 08/29/2005 Papanicolaou smear of cervix with atypical squamous cells of undetermined significance (ASC-US) 2007 Papanicolaou smear of cervix with low grade squamous intraepithelial lesion (LGSIL) PCOS (polycystic ovarian syndrome) Schizophrenia (HCC) 04/21/2010 [facility] Unspecified essential hypertension 08/29/2005 PAST SURGICAL HISTORY Procedure Laterality Date ARTHRS KNE SURG W/MENISCECTOMY MED/LAT W/SHVG 11/13/2014 Left knee arthroscopic medial meniscus repair COLPOSCOPY CERVIX UPPER/ADJACENT VAGINA 11/2007 Colposcopy DBRDMT SKN SUBQ T/M/F NECRO INFCTJ ABDL WALL 09/15/2016 Extensive debridement for necrotizing fasciitis-30 x 14 x 8 cm ESOPHAGOGASTRODUODENOSCOPY TRANSORAL DIAGNOSTIC 02/26/2008 EGD PAST SURGICAL HISTORY OF RFA lumbar, SI joint injections VAGINOSCOPY 07/15/2012 ALLERGIES Amoxicillin, Cephalexin, Doxycycline, Asenapine Maleate, and Saphris [Asenapine] MEDICATIONS cyanocobalamin (VITAMIN B-12) 1,000 mcg tab Take 1 tablet by mouth once daily. [START ON 07/27/2023] cyanocobalamin (VITAMIN B-12) 1,000 mcg tab Take 1 tablet by mouth once daily. folic acid 1 mg tablet Take 1 tablet by mouth once daily. gabapentin (NEURONTIN) 600 mg tablet Take 2 tablets by mouth two times a day for 90 days. pyridostigmine (MESTINON) 60 mg tablet Take 1 tablet by mouth three times a day. flash glucose sensor (FREESTYLE CHANDRAKANT 2 SENSOR) kit 1 Each every 2 weeks. sulfamethoxazole-trimethoprim (BACTRIM DS) 800-160 mg per tablet Take 1 tablet by mouth every 12 hours. For 10 days- started 05/07/2023 metroNIDAZOLE (FLAGYL) 500 mg tablet Take 500 mg by mouth three times a day. For 10 days- started 05/07/2023 insulin degludec (TRESIBA FLEXTOUCH U-100) 100 unit/mL (3 mL) injection pen Inject 40 Units subcutaneously daily at bedtime. metFORMIN ER (GLUCOPHAGE XR) 500 mg 24 hr tablet Take 2 tablets by mouth twice daily before meals. dulaglutide (TRULICITY) 1.5 mg/0.5 mL pen injector Inject 1.5 mg subcutaneously one time a week. insulin lispro (HUMALOG KWIKPEN INSULIN) 100 unit/mL Inject 3 Units subcutaneously three times daily before meals. topiramate (TOPAMAX) 100 mg tablet Take 1 tablet by mouth twice daily. Alpha Lipoic Acid 200 mg tab Take by mouth three times daily. Biotin 800 mcg tab Take 1 tablet by mouth once daily. losartan (COZAAR) 25 mg tablet Take 1 tablet by mouth once daily. omeprazole (PRILOSEC) 40 mg capsule Take 1 capsule by mouth once daily. Lancets lancets Test blood sugar(s) 6 to 7 times daily. Dx: Type 2 DM - Uncontrolled E11.65 Insulin: Yes insulin needles, DISPOSABLE, (PEN NEEDLE) 31 gauge x 5/16 Use one needle per dose. 6x per day. Increased amount. On sliding scale + 5 injections per day loratadine (CLARITIN) 10 mg tablet Take 1 tablet by mouth once daily. For post nasal drip Lancing Device [place]ANCET DEV[place] [facility] [place] 1 lancet device. May give generic. Dx: E11.9 FAMILY HISTORY Problem Relation Age of Onset Hypertension Mother other (brain aneurysm) Mother 50 Hypertension Father Diabetes Father Heart Father Hypertension Maternal Grandmother Cancer Maternal Grandmother Throat, kidney, breast Heart Maternal Grandmother Mi X 3 Stroke Maternal Grandmother Hypertension Maternal Grandfather Diabetes Paternal Grandmother and High Cholesterol Stroke Paternal Grandmother Cataract Paternal Grandmother Cancer Paternal Grandmother Kidney, liver, lung other (High Cholesterol) Paternal Grandfather other (Kidney Failure) Paternal Grandfather Social History Tobacco Use Smoking status: Every Day Types: Cigars Smokeless tobacco: Never Tobacco comments: smokes cigars 4 per day Vaping Use Vaping Use: Never used Substance Use Topics Alcohol use: Not Currently Drug use: Yes Frequency: 2.0 times per week Types: Marijuana Objective Physical Exam Vitals and nursing note reviewed. Constitutional: General: She is not in acute distress. Appearance: Normal appearance. She is not ill-appearing. Cardiovascular: Rate and Rhythm: Normal rate and regular rhythm. Heart sounds: Normal heart sounds. Pulmonary: Effort: Pulmonary effort is normal. No respiratory distress. Breath sounds: Normal breath sounds. No wheezing or rales. Abdominal: Palpations: Abdomen is soft. Skin: General: Skin is warm and dry. Neurological: Mental Status: She is alert. Office Visit on 06/30/2023 Component Date Value Ref Range Status GLUCOSE UA (POCT) 06/30/2023 >=1000 (A) Negative mg/dL Final BILIRUBIN UA (POCT) 06/30/2023 Negative Negative Final KETONE UA (POCT) 06/30/2023 Trace Negative mg/dL Final SPECIFIC GRAVITY UA (POCT) 06/30/2023 >=1.030 1.005 - 1.030 Final HEMOGLOBIN/BLOOD UA (POCT) 06/30/2023 Trace-intact (A) Negative Final PH UA (POCT) 06/30/2023 5.5 4.5 - 8.0 Final PROTEIN UA (POCT) 06/30/2023 Trace (A) Negative mg/dL Final UROBILINOGEN UA (POCT) 06/30/2023 1.0 Normal E.U./dL Final NITRITE UA (POCT) 06/30/2023 Negative Negative Final LEUKOCYTES UA (POCT) 06/30/2023 Negative Negative Final COLOR UA (POCT) 06/30/2023 Dark yellow Final CLARITY UA (POCT) 06/30/2023 Clear Final Glucose, Point of Care 06/30/2023 403 (A) 74 - 99 mg/dL Final Comment: Glu2: Critical Notified Location:[address], [place], [address] The Accu-Chek Inform II glucose meter has not been approved for testing on patients receiving intensive medical intervention or therapy and results from this point of care glucose test should not be used for patient management decisions in these cases. Inaccurate results may also occur from other interfering factors, such as N-acetylcysteine (blood concentrations of greater than 5mg/dL), galactose, extremes of hematocrit (<10 or >65), or high doses of ascorbic acid (vitamin C) greater than 3mg/dL. Consider alternate testing mechanisms (e.g. core lab, blood gas instrument) in the above situations. ASSESSMENT/PLAN: 1. Burning with urination - ICD9: 788.1, ICD10: R30.0 (primary diagnosis) acute - UA positive for hematuria, proteinuria, and glucose (>1000) and trace ketones - Send urine for culture - UA DIP, URINE (POC) - URINE CULTURE 2. Acute cough - ICD9: 786.2, ICD10: R05.1 - XR CHEST 2V FRONTAL/LAT RESULT: Lines, tubes, and devices: None. Lungs and pleura: There is no focal consolidation, pleural effusion, or pneumothorax. Cardiomediastinal silhouette: Within normal limits. Bones and soft tissues: No acute osseous abnormality is identified. The imaged upper abdomen is within normal limits. IMPRESSION: No acute cardiopulmonary process. Assurance Specialist: GORDON Transcribe Date/Time: Jun 30 2023 10:34A Dictated by : MAYANK RANDALL MD 3. Glucosuria - ICD9: 791.5, ICD10: R81 - GLUCOSE, BLOOD (POC) 4. Hypertension, unspecified type - ICD9: 401.9, ICD10: I10 - Uncontrolled - Recommend home blood pressure monitoring, to bring results to next visit 5. Post-viral cough syndrome - ICD9: 786.2, ICD10: R05.8 - unable to prescribe steroids due to elevated blood sugars. - BENZONATATE 100 MG CAPSULE - Albuterol inhaler prescribed. - patient advised of elevated BP and glucose findings. She has an appointment with her gauge operator in 2 days. - Follow-up with your PCP in 3-5 days if symptoms have not improved or sooner if symptoms worsen - Discussed red flags and need for immediate medical evaluation if any occur. - Discussed supportive care treatment with fluids, rest and analgesia. - Discussed expected course of illness Zenaida Roman APRN.SUPER[employer] documented in this encounter [facility] 06-29-2023 Note [facility] 06-29-2023 History of Present illness Narrative Images from the original note were not included. [facility] for General Neurology Established Patient Virtual Visit Chief Complaint/Issues: Kathleen Mcdaniel is a 38 year old handed right-handed female seen via virtual visit for: Follow up Autonomic dysfunction This is a virtual visit using [employer] Video Visit. It required patient-provider interaction for the medical decision making as documented below. I have communicated my name and active licensure. The patient's identity and physical location were verified at the time of this visit. Either the patient or their legal volunteer patient representative has been informed of the risks and benefits of -- and alternatives to -- treatment through a remote evaluation and consents to proceed with the evaluation remotely. Brief HPI /Most Recent Department Assessment and Plan Last seen 12/14/2022 for initial evaluation: She often feels lightheaded and faint on standing, and has to sit back down. She sometimes notes heart pounding on standing as well. She has frequent BEASLEY. She had autonomic reflex with tilt completed 06/2022 demonstating only a mild cardiovagal abnormality without OH or POTS on tilt. I would comment that her late and mild tachycardia is most consistent with orthostatic intolerance (OI). She had both tachycardia and hypotension, which did not meet criteria for POTS or OH. These findings are most consistent with her neuroapthy. She had EMG completed 08/2021 demonstrating a mild generalized sensory predominany polyneropathy. Also demonstrating L median and ulnar mononeuropathies. Labs ordered by Dr. Cary for mimics, though I cannot see these were completed and I will re-order appropriate labs for mimics. Neuropathy likely related to her poor diabetes control (most recent Hgb A1C 9.4). She is on alpha lipoic acid. She continues to struggle with DM management. She reports she is not currently taking meal time insulin due to her BG dropping unexpectedly, and will get very high with low carb snacks. She reports she does not have her Chandrakant device right now due to insurance issues, and does not have a finger-stick monitor at this time. She is scheduled to see endocrinology in January for assistance in better diabetes management. I encourage her to seek PCP guidance [facility] for blood glucose management in the interim. She is following with nephrology for hypertension management. Currently taking losartan 25 mg daily. she did have ambulatory blood pressure monitoring completed 10/12/2022 though I cannot see an interpretation. On my review, monitoring demonstrating frequent hypertension, with systolic above 210 at multiple points throughout the day. She does have nocturnal dipping, though blood pressure remains hypertensive throughout. She reports she does have ongoing issues with labile blood pressure, though she typically runs high. She has ongoing issues with GI dysregulation. She reports she often does not have a bowel movement for 2 weeks, and can have diarrhea at times. She can feel nauseated and occasionally vomit after eating. She had NM gastric emptying study completed 09/2022, which did not demonstrate gastroparesis. She is scheduled to see GI locally in [place] in the coming months. She also has issues with swallowing and feeling like food gets st; uck. She has issues with SICCA symptoms as well, will check labs. Typically for this patient I would prefer beta carmen for management of tachycardia and hypertension, but given her poor DM control I am concerned for the hypoglyecmic blunting, especially given that she is not regularly checking her sugar. For now we will try pyridostigmine for BP and HR modulation. 1) Labs (fasting) - See below 2) Speech swallow evaluation 3) SMA 4) Follow up with your eye doctor for diabetic eye exam 5) Follow up with PCP for glucose monitor 6) Pyridostigmine 60 mg 3x daily Pyridostigmine/mestinon 60 mg is used for POTS well by increasing nerve impulses. Will send to your pharmacy. Follow these instructions below: Take with food. Week 1 and 2: One pill mestinon at bedtime. Week 3 and 4 : One pill after breakfast and one at bedtime. Week 5 and onward : (If not better) One pill after breakfast, one mid afternoon, and one at bedtime. If the medication is helping you should notice less fatigue, dizziness, and better stamina. We start low to avoid side effects of nausea and diarrhea. Keep monitoring your blood pressure. Like all medications, there is some risk of allergic reaction. Can have additive effect with antiglaucoma drugs may cause or exacerbate problems with night vision. Current management of orthostatic condition: Conservative Measures: -Increased water intake (2-2.5 liters of water daily) -Increased salt intake (3-5 grams daily) -Compression stockings -Cardiac Rehab / Progressive exercise -Shared medical appointment with Dr. Fair -Elevate head of bed -Continue with mental health care ------- Today, June 29, 2023: Since last visit, she has been having more issues feeling lightheaded when standing, feeling more short of breath when walking for a long time. She reports in the last two weeks, symptoms have been worse. She had to go to the ER and they never brought her to a room. We discussed that chest x-ray and EKG are abnormal. She states she has been feeling overall unwell in the last 2 weeks. She reports she is very short of breath walking short distances, and feels very weak and hot. She reports overall her BP has been 120-180s mmHg systolic, and her HR is overall 80s-90s bpm. She does notice HR and BP changing with switching positions. Since last visit, she was seen by endocrinology, Dr. Mckinnon. She reports she is having trouble getting the monitor covered, and is out of test strips again. 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 11/23/2014 MRSA (methicillin resistant staph aureus) culture positive chronic, legs, groins, armpit Necrotizing fasciitis ([facility]) Obesity 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 Oligomenorrhea 10/27/2009 Other and unspecified hyperlipidemia 08/29/2005 Papanicolaou smear of cervix with atypical squamous cells of undetermined significance (ASC-US) 2007 Papanicolaou smear of cervix with low grade squamous intraepithelial lesion (LGSIL) PCOS (polycystic ovarian syndrome) Schizophrenia ([facility]) 04/21/2010 [facility] Unspecified essential hypertension 08/29/2005 PAST SURGICAL HISTORY Procedure Laterality Date ARTHRS KNE SURG W/MENISCECTOMY MED/LAT W/SHVG 11/13/2014 Left knee arthroscopic medial meniscus repair COLPOSCOPY CERVIX UPPER/ADJACENT VAGINA 11/2007 Colposcopy DBRDMT SKN SUBQ T/M/F NECRO INFCTJ ABDL WALL 09/15/2016 Extensive debridement for necrotizing fasciitis-30 x 14 x 8 cm ESOPHAGOGASTRODUODENOSCOPY TRANSORAL DIAGNOSTIC 02/26/2008 EGD PAST SURGICAL HISTORY OF RFA lumbar, SI joint injections VAGINOSCOPY 07/15/2012 ALLERGIES Allergen Reactions Amoxicillin Itching, Unknown, Hives, Rash, Other: See Comments Cephalexin GI Upset, Other: See Comments Doxycycline Rash, Other: See Comments Asenapine Maleate Unknown, Other: See Comments Saphris [Asenapine] Mental Status Change Social History Tobacco Use Smoking status: Every Day Types: Cigars Smokeless tobacco: Never Tobacco comments: smokes cigars 4 per day Vaping Use Vaping Use: Never used Substance Use Topics Alcohol use: Not Currently Drug use: Yes Frequency: 2.0 times per week Types: Marijuana FAMILY HISTORY Problem Relation Age of Onset Hypertension Mother other (brain aneurysm) Mother 50 Hypertension Father Diabetes Father Heart Father Hypertension Maternal Grandmother Cancer Maternal Grandmother Throat, kidney, breast Heart Maternal Grandmother Mi X 3 Stroke Maternal Grandmother Hypertension Maternal Grandfather Diabetes Paternal Grandmother and High Cholesterol Stroke Paternal Grandmother Cataract Paternal Grandmother Cancer Paternal Grandmother Kidney, liver, lung other (High Cholesterol) Paternal Grandfather other (Kidney Failure) Paternal Grandfather Current management of orthostatic condition Conservative Measures: Increased water intake (2-2.5 liters of water daily) Increased salt intake (3-5 grams daily) Compression stockings Cardiac Rehab / Exercise Shared medical appointment with Dr. Yadira Tang head of bed Continue with mental health care Medications Current Outpatient Medications on File Prior to Visit Medication Sig flash glucose sensor (FREESTYLE CHANDRAKANT 2 SENSOR) kit 1 Each every 2 weeks. sulfamethoxazole-trimethoprim (BACTRIM DS) 800-160 mg per tablet Take 1 tablet by mouth every 12 hours. For 10 days- started 05/07/2023 metroNIDAZOLE (FLAGYL) 500 mg tablet Take 500 mg by mouth three times a day. For 10 days- started 05/07/2023 insulin degludec (TRESIBA FLEXTOUCH U-100) 100 unit/mL (3 mL) injection pen Inject 40 Units subcutaneously daily at bedtime. metFORMIN ER (GLUCOPHAGE XR) 500 mg 24 hr tablet Take 2 tablets by mouth twice daily before meals. dulaglutide (TRULICITY) 1.5 mg/0.5 mL pen injector Inject 1.5 mg subcutaneously one time a week. insulin lispro (HUMALOG KWIKPEN INSULIN) 100 unit/mL Inject 3 Units subcutaneously three times daily before meals. topiramate (TOPAMAX) 100 mg tablet Take 1 tablet by mouth twice daily. gabapentin (NEURONTIN) 600 mg tablet Take 2 tablets by mouth twice daily for 180 days. Alpha Lipoic Acid 200 mg tab Take by mouth three times daily. Biotin 800 mcg tab Take 1 tablet by mouth once daily. losartan (COZAAR) 25 mg tablet Take 1 tablet by mouth once daily. omeprazole (PRILOSEC) 40 mg capsule Take 1 capsule by mouth once daily. Lancets lancets Test blood sugar(s) 6 to 7 times daily. Dx: Type 2 DM - Uncontrolled E11.65 Insulin: Yes insulin needles, DISPOSABLE, (PEN NEEDLE) 31 gauge x 5/16 Use one needle per dose. 6x per day. Increased amount. On sliding scale + 5 injections per day loratadine (CLARITIN) 10 mg tablet Take 1 tablet by mouth once daily. For post nasal drip Lancing Device (BD LANCET DEVICE[place] [facility] [place] 1 lancet device. May give generic. Dx: E11.9 No current facility-administered medications on file prior to visit. Relevant Current Medications: Losartan 25 mg daily Gabapentin 1200 mg BID Topamax 100 mg BID ALA 200 mg TID Biotin Metformin ER Humalog TID Trulicity Bactrim Flagyl Omeprazole Loratadine Relevant Work Up To Date [facility] Labs Component Ref Range & Units 1 yr ago Hemoglobin A1C (POCT) 4.2 - 5.6 % 9.4 Abnormal Triglycerides - 201 (H) Glucose - 366 (H) Sodium 133 (L) Vit D - 15.2 (L) OSH Labs (in scanned docs ) 01/10/2023 (OSH) Sed WNL CMP clinically WNL Glucose 230 (H) AST 14 (L) Ca++ 8.4 (L) TSH WNL Iron + TIBC Iron 45 (L) Ferritin WNL B12 417 01/15/2023 (OSH) HIV WNL 01/16/2023 (OSH) SSA / SSB WNL MMA WNL Normetanephrines (plasma) WNL Metanephrines (plasma) WNL 02/04/2023 K/L abnormal [place] 25.9 (H) Lamda WNL K/L ratio 1.73 (H) Immunofixation WNL ACHR Ab Renin / aldosterone WNL Copper WNL B1 WNL 02/28/2023 Sed WNL CRP WNL 03/01/2023 ESTEPHANIE negative Autonomic Reflex w/ Tilt 06/22/2022 Impression Heart rate response to deep breathing as measured by the mean heart rate range and the E:I ratio are both reduced. Heart rate response to the Valsalva maneuver, as assessed by the Valsalva ratio, is normal. Blood pressure responses to phase II and phase IV of the valsalva maneuver are normal. During 10 minutes of 60 degree head-up tilt the heart rate peaked at 112 bpm at minute ten which represents a maximum increase of 25 bpm from baseline supine values (nl < 30 bpm increase). Systolic and diastolic blood pressure responses to the tilt table test are normal and generally in the hypertensive range both when supine and upright. Impression: This is an abnormal cardiovascular autonomic test panel. The reduced mean heart rate range and E:I ratio are consistent with a mild cardiovagal abnormality. There is no evidence of a cardiovascular adrenergic abnormality on the autonomic reflex tests. There is no evidence of orthostatic hypotension or accentuated postural tachycardia. Ambulatory BP Monitoring 10/12/2022 EMG 08/19/2021 Study Interpretation Electrodiagnostic examination of the left upper and lower limb was technically hampered by incomplete motor unit activation in multiple muscles either as the result of pain, poor voluntary effort, and/or a central disorder of motor unit control. It reveals: 1. 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 Mild active denervation change is seen in the intrinsic foot muscle. 2. Left median mononeuropathy at or distal to the wrist (ie: carpal tunnel syndrome), mild in degree electrically. 3. 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 Further electrodiagnostic study or neuromuscular ultrasound of the left upper limb could assist in further localizing this lesion, if clinically indicated. 4. Mild chronic motor axon loss change is seen in rectus femoris and mild myopathic change is seen in gluteus medius. In isolation, both of these findings are of unclear clinical significance. NM Gastric emptying 09/29/2022 IMPRESSION: EVIDENCE OF NORMAL RATE OF GASTRIC EMPTYING OF SOLID MEAL. MRI Thoracic, Lumbar w/ w/o 06/15/2022 IMPRESSION: Thoracic spondylotic changes including mild disc deformities, hypertrophic ligamentum flavum and facet hypertrophy, contributing to multilevel mild canal stenosis and moderate neural foraminal narrowing. Mild lumbar degenerative change with mild canal and foraminal stenosis. No evidence of signal abnormality in the thoracic cord or conus. Please see the body of report for additional findings and further discussion. Anatomic Thoracic/Lumbar Variant: None. L4-5 is considered the level of the iliac crest and assume there are 5 lumbar-type vertebrae. General Examination: Exam is observational at best. LMP 04/12/2023 (Approximate) There were no vitals filed for this visit. Neurologic Examination: Cognition The patient is alert and oriented times four. Lucid and organized in conversation. Able to provide detailed medical hx. Speech Speech is Normal in fluency, volume, and clarity. No dysarthria. Content and syntax are coherent. Comprehension: Able to follow several step commands. Cranial Nerves No gross asymmetry. No ptosis. General Exam Neurological Exam Reflexes Deep tendon reflexes graded by [facility] Subjective Patient-Entered Data: Autonomic Screening COMPASS-31 Past Scores No flowsheet data found. NM Treatment and Fall Risk No flowsheet data found. PROMIS-10 PROMIS 10 06/26/2023 03/19/2023 In general, would you say your health is: Fair Fair In general, would you say your quality of life is: Fair Fair In general, how would you rate your physical health? Poor Fair In general, how would you rate your mental health, including your mood and your ability to think? Fair Fair In general, how would you rate your satisfaction with your social activities and relationships? Poor Poor To what extent are you able to carry out your everyday physical activities such as walking, climbing stairs, carrying groceries, or moving a chair? A little Mostly In general, please rate how well you carry out your usual social activities and roles. (This includes activities at home, at work and in your community, and responsibilities as a parent, child, spouse, employee, friend, etc.) Poor Fair How would you rate your pain on average? 6 5 How would you rate your fatigue on average? Very severe Moderate How often have you been bothered by emotional problems such as feeling anxious, depressed or irritable? Often Often PROMIS Adult Short Form-Global Health Score (Physical) 26.7 (Poor) 39.8 (Fair) PROMIS Adult Short Form-Global Health Score (Mental) 31.3 (Fair) 31.3 (Fair) PHQ-9 PHQ-9 All Questions 03/19/2023 12/11/2022 Little interest or pleasure in doing things 2 2 Feeling down, depressed, or hopeless 3 3 Trouble falling or staying asleep, or sleeping too much 1 2 Feeling tired or having little energy 1 2 Poor appetite or overeating 1 3 Feeling bad about yourself - or that you are a failure or have let yourself or your family down 1 2 Trouble concentrating on things, such as reading the newspaper or watching television 2 3 Moving or speaking so slowly that other people could have noticed. Or the opposite - being so fidgety or restless that you have been moving around a lot more than usual 1 2 Thoughts that you would be better off , or of hurting yourself in some way 0 0 PHQ-9 Score 12 19 (0-4) minimal depression (5-9) mild depression (10-14) moderate depression (15-19) moderately severe depression (20-27) severe depression ORI-7 ORI-7 All Questions 03/19/2023 12/11/2022 Nervous, anxious or on edge 2 1 Not being able to stop or control worrying 1 2 Worrying too much 2 3 Trouble relaxing 2 1 Restless 1 1 Annoyed or irritable 3 3 Afraid something awful might happen 1 1 ORI-7 Score 12 12 (0-5) mild anxiety (6-10) moderate anxiety (11-15) moderately severe anxiety (16-21) severe anxiety Sleep 07/07/2022 06/19/2022 What is your average total sleep time per night over the past 4 weeks? 5 Hours - What is your average total sleep time during the day over the past 4 weeks? 2 Hours - Have you been diagnosed with sleep apnea? No - Do you snore loudly? No No Do you often feel sleepy, tired, or fatigued during the day? Yes Yes Have you been told that you stop breathing during sleep? No No Have you been told or are you being treated for high blood pressure? Yes Yes Probability of moderate-severe sleep apnea (%) SAPS V2 14 (Sleep study not recommended) 14 (Sleep study not recommended) Insomnia Severity Index 12/21/2022 10/17/2022 Difficulty falling asleep 3 2 Difficulty staying asleep 3 2 Problem waking up too early 3 3 Satisfied/dissatisfied with current sleep pattern 3 3 Sleep interferes with daily functions 3 3 Sleep problems noticeable to others 2 2 Worried/distressed about current sleep problems 2 3 Score 19 18 Assessment & Plan 06/29/2023 - Neuromuscular, Ana Edwards APRN.[employer] ASSESSMENT Kathleen Mcdaniel is a 38 year old here today for follow up. Kathleen Mcdaniel has a has a past medical history of Agoraphobia with panic disorder, Bipolar I disorder, DM 2 (poorly controlled, most recent Hgb A1C 9.4), DVT (deep venous thrombosis), Esophagitis, Fibromyalgia, Genital herpes, Hyperlipidemia, Hypertension, Labile blood pressures, Median and ulnar neuropathy (L), MRSA (methicillin resistant staph aureus), Obesity, Obsessive-compulsive personality disorder, Polyneuropathy, PCOS (polycystic ovarian syndrome), Schizophrenia. Seen iniitally for symptoms of orthostatic lightheadedness and issues with LOC. She had autonomic reflex with tilt completed 06/2022 demonstating only a mild cardiovagal abnormality without OH or POTS on tilt. I would comment that her late and mild tachycardia is most consistent with orthostatic intolerance (OI). She had both tachycardia and hypotension, which did not meet criteria for POTS or OH. She has historically poorly controlled diabetes, with EMG completed 08/2021 demonstrating a mild generalized sensory predominany polyneropathy. Also demonstrating L median and ulnar mononeuropathies. She is scheduled to see endocrinology at the end of the month for diabetes management. She follows with nephrology for assistance in labile BP management. Ambulatory blood pressure monitoring was completed 10/12/2022 though I cannot see an interpretation. On my review, monitoring demonstrating frequent hypertension, with systolic above 210 at multiple points throughout the day. She does have nocturnal dipping, though blood pressure remains hypertensive throughout. She had NM gastric emptying study completed 09/2022, which did not demonstrate gastroparesis. She did report issues with SICCA symptoms, trouble swallowing, autoimmune labs WNL. I did order celiac screen though I do not see these results. Since last visit, she reports she has been feeling worsened symptoms in the last 2-3 weeks. She has had worsened SOB and lightheadedness while walking short distances or standing. She did go to ER and had abnormal EKG demonstrating possible R atrial enlargement. We will repeat EKG and obtain updated Echo. She also had abnormal chest x-ray concerning for pneumonia, and we discuss given persistent symptoms and not with current PCP, she needs to go to urgent care. She has not been able to obtain B12 shots due to not having PCP currently, we will do the oral while waiting for injections. She also ran out of pyridostigmine and gabapentin, refills sent. PLAN 1) Labs (fasting) 2) Repeat EKG 3) Echo 4) Go to urgent care for chest x-ray 5) Referral for new primary care 6) For B12: -Follow up with PCP for injections -For now vitamin B12, 2 mg (or 2,000 micrograms) by mouth daily x1 month. -Then take 1,000 mcg daily. -Take together with folic acid 1 mg daily. 7) Restart pyridostigmine 60 mg TID 8) I will take over gabapentin script, refill sent Return in about 6 months (around 12/28/2023), or In person. My impression and recommendations were discussed at length with the patient (and family members, if present). The patient and family (if present) voiced understanding to my recommendations. All questions were answered. Medication side effects discussed as applicable. The patient was provided with a detailed after visit summary highlighting my impression and recommendations. I spent a total of 30 minutes on the date of the service which included preparing to see the patient, [id number] patient care, completing clinical documentation, obtaining and/or reviewing separately obtained history, counseling and educating the patient/family/caregiver, and ordering medications, tests, or procedures. Ana Edwards APRN.[facility] General Neurology [address] [place]. [address] Appointment: [phone] During our virtual clinical encounter we discussed my concerns neurologically in terms of diagnosis, impact on health and activities of living, and addressed questions. I tried to reassure the patient and also address questions. I explained to the patient to call if any questions, to review results, and I want to see them return for neurological follow up as mychart as next steps of communication is agreed upon Patient verbalizes understanding and I have addressed concerns and questions at this visit Patient has my contacts, educational material provided, and my chart sign up. After visit summary discussed. 1. This office note has been dictated and may contain minor typographic errors that escaped review. 2. The nursing staff and medical assistants are a major part of YOUR TREATMENT TEAM and will be handling your phone calls and inquiries, if any. Unless explicitly told otherwise at the time of your office visit, your study results and ensuing treatment plans will be discussed during your follow-up appointment. If you do not have a follow-up appointment and wish to discuss any issues directly with me, please feel free to obtain one. 3. It is my practice to not fill disability or any other insurance-related forms/documention. All of the office notes, study results, and other pertinent documentation generated as part of your evaluation will be available to you and to your Primary Care Physician (PCP). Use of this material to complete such forms will be at the discretion of your PCP/referring physician documented in this encounter [facility] 06-08-2023 Miscellaneous Notes Reason for Call: Patient complains of generalizes weakness and fatigue, sleeping more, light sensitivity and restlessness that has been going on for one month. Also complains of loss of control of her bladder x one week Outcome: Go to ED now, verbalizes understanding and will have someone drive her to nearest ED Reason for Disposition Patient sounds very sick or weak to the triager Protocols used: Weakness (Generalized) and [id number] documented in this encounter [facility] 05-10-2023 Note . MICRO - Microbiology PROCEDURE: Blood Culture (bacterial) [*1] SOURCE: Blood BODY SITE: COLLECTED DATE/TIME: 05/04/2023 19:31 EDT RECEIVED DATE/TIME: 05/05/2023 18:38 EDT START DATE/TIME: 05/05/2023 18:39 EDT FREE TEXT SOURCE: FINAL REPORTS Final Report [] Verified Date/Time/Personnel: 05/10/2023 18:59 EDT Blood Culture: No Growth at 5 days. PRELIMINARY REPORTS Preliminary Report [] Verified Date/Time/Personnel: 05/05/2023 19:59 EDT Culture has been received in lab and is no growth to date. Routine cultures are held for 5 days. Performing Locations *1: This test was performed at: [address], [facility] , [facility] ([place]) 05-10-2023 Note . MICRO - Microbiology PROCEDURE: Blood Culture (bacterial) [*1] SOURCE: Blood BODY SITE: COLLECTED DATE/TIME: 05/04/2023 19:31 EDT RECEIVED DATE/TIME: 05/05/2023 18:38 EDT START DATE/TIME: 05/05/2023 18:39 EDT FREE TEXT SOURCE: FINAL REPORTS Final Report [] Verified Date/Time/Personnel: 05/10/2023 18:59 EDT Blood Culture: No Growth at 5 days. PRELIMINARY REPORTS Preliminary Report [] Verified Date/Time/Personnel: 05/05/2023 19:59 EDT Culture has been received in lab and is no growth to date. Routine cultures are held for 5 days. Performing Locations *1: This test was performed at: [facility], [address] [place] [address], [facility] , [facility] ([place]) 05-07-2023 Note [facility] 05-07-2023 Nurse Note REVIEW OF SYSTEMS: General: The patient NOTES fatigue, denies weight loss, denies weight gain, NOTES feeling hot, and NOTES feelings of cold. Eyes: The patient denies glaucoma, denies eye injury/surgery, wears glasses or contacts. Ear/Nose/Throat: The patient NOTES allergies, denies hayfever, denies ear infections, and denies bloody noses. Cardiovascular: The patient denies chest pain, denies heart disease, NOTES high blood pressure,denies cardiac stent, denies prior heart attack, denies irregular heart beat, denies high cholesterol, NOTES poor circulation, denies heart failure, other cardiac issues, NOTES claudication, NOTES cold feet, denies peripheral arterial stent. Respiratory: The patient denies tuberculosis, denies pneumonia, denies frequent cough, denies pulmonary embolism, denies shortness of breath, and denies coughing up blood. Gastrointestinal: The patient NOTES difficulty swallowing, NOTES acid reflux, denies ulcers, NOTES vomiting, denies jaundice/hepatitis, denies gallbladder problems, denies black or tarry stools, denies hemorrhoids, denies bleeding from rectum, denies diverticulitis, NOTES constipation, NOTES diarrhea, denies loss of stool control, and denies hernias. Kidney/Bladder: The patient denies kidney stones, NOTES urine infections, and denies bloody urine. Skin: The patient denies a history of skin cancer, denies bleeding/changing moles, and denies a history of skin rash. Neurologic: The patient denies a history of epilepsy/convulsions, NOTES headaches, denies head/spinal injuries, and denies stroke/TIA. Psychiatric: The patient NOTES psychiatric medications, NOTES depression, and denies voices, denies substance abuse. Endocrine: The patient denies thyroid disorders, NOTES diabetes, and denies hormonal problems. Hematologic: The patient NOTES a history of bruising, denies bleeding, and denies anemia, NOTES blood clots. Infections: The patient denies a history of measles and mumps, denies rheumatic fever, and denies sexually transmitted diseases. Musculoskeletal: The patient NOTES back pain/injury, NOTES back problems, denies sciatica, NOTES knee/foot trouble, denies arthritis, or denies gout. When was patient's last Mammogram screening? 06/15/2009 Last Colonoscopy: None Olivia Cruz LPN documented in this encounter [facility] 05-07-2023 Note . MICRO - Microbiology PROCEDURE: Urine Culture [*1] SOURCE: Urine, Clean Catch BODY SITE: COLLECTED DATE/TIME: 05/04/2023 20:28 EDT RECEIVED DATE/TIME: 05/05/2023 18:37 EDT START DATE/TIME: 05/05/2023 18:37 EDT FREE TEXT SOURCE: FINAL REPORTS Final Report [] Verified Date/Time/Personnel: 05/07/2023 11:34 EDT 10,000 - 50,000 cfu/ml Multiple bacterial morphotypes present. Probable Contamination. Suggest recollection if clinically indicated. including 9,000 cfu/ml Group B Beta Hemolytic Strep (Strep agalactiae) Sensitivity testing is not recommended for one of the following reasons: 1. Established susceptibility patterns are available or 2. Interpretative criteria are not available. PRELIMINARY REPORTS Preliminary Report [] Verified Date/Time/Personnel: 05/06/2023 12:51 EDT Culture results pending. Performing Locations *1: This test was performed at: [facility], [address] [place] [address], [id number] , [facility] ([place]) 05-07-2023 History of Present illness Narrative Kathleen Mcdaniel 1985 REFERRING PHYSICIAN: Self CHIEF COMPLAINT: Follow Up HPI: The patient is a 38 year old female presents with skin and subcutaneous tissues infection. She presented to [facility]. CT scan 05/04/2023 - 2.5 cm abscess in the inferior right pelvic region with surrounding inflammatory changes - patient points to peripubic superficial fatty tissues - actual images not available She had normal WBC with no left shift of differential, was afebrile at presentation; MRSA not detected She is s/p stab incision to abscess of prepubic bone area (done 05/04/2023), because of history of necrotizing fasciitis, patient was observed overnight at [facility]. She was discharged on Bactrim and flagyl. She was told to follow up with a surgeon SHAHEED. She is diabetic, poorly controlled (chronically elevated HgbA1c) She admits to cigarettes use. 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/2014 MRSA (methicillin resistant staph aureus) culture positive chronic, legs, groins, armpit Necrotizing fasciitis (HCC) Obesity 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 Oligomenorrhea 10/27/2009 Other and unspecified hyperlipidemia 08/29/2005 Papanicolaou smear of cervix with atypical squamous cells of undetermined significance (ASC-US) 2007 Papanicolaou smear of cervix with low grade squamous intraepithelial lesion (LGSIL) PCOS (polycystic ovarian syndrome) Schizophrenia (HCC) 04/21/2010 [facility] Unspecified essential hypertension 08/29/2005 PAST SURGICAL HISTORY Procedure Laterality Date ARTHRS KNE SURG W/MENISCECTOMY MED/LAT W/SHVG 11/13/2014 Left knee arthroscopic medial meniscus repair COLPOSCOPY CERVIX UPPER/ADJACENT VAGINA 11/2007 Colposcopy RDNE SKN SUBQ T/M/F NECRO INFCTJ ABDL WALL 09/15/2016 Extensive debridement for necrotizing fasciitis-30 x 14 x 8 cm ESOPHAGOGASTRODUODENOSCOPY TRANSORAL DIAGNOSTIC 02/26/2008 EGD PAST SURGICAL HISTORY OF RFA lumbar, SI joint injections VAGINOSCOPY 07/15/2012 Current Outpatient Medications Medication Sig metroNIDAZOLE (FLAGYL) 500 mg tablet Take 500 mg by mouth three times a day. For 10 days- started 05/07/2023 insulin degludec (TRESIBA FLEXTOUCH U-100) 100 unit/mL (3 mL) injection pen Inject 40 Units subcutaneously daily at bedtime. metFORMIN ER (GLUCOPHAGE XR) 500 mg 24 hr tablet Take 2 tablets by mouth twice daily before meals. dulaglutide (TRULICITY) 1.5 mg/0.5 mL pen injector Inject 1.5 mg subcutaneously one time a week. flash glucose sensor (FREESTYLE CHANDRAKANT 2 SENSOR) kit 1 Each every 2 weeks. insulin lispro (HUMALOG KWIKPEN INSULIN) 100 unit/mL Inject 3 Units subcutaneously three times daily before meals. topiramate (TOPAMAX) 100 mg tablet Take 1 tablet by mouth twice daily. gabapentin (NEURONTIN) 600 mg tablet Take 2 tablets by mouth twice daily for 180 days. Alpha Lipoic Acid 200 mg tab Take by mouth three times daily. Biotin 800 mcg tab Take 1 tablet by mouth once daily. losartan (COZAAR) 25 mg tablet Take 1 tablet by mouth once daily. omeprazole (PRILOSEC) 40 mg capsule Take 1 capsule by mouth once daily. Lancets lancets Test blood sugar(s) 6 to 7 times daily. Dx: Type 2 DM - Uncontrolled E11.65 Insulin: Yes insulin needles, DISPOSABLE, (PEN NEEDLE) 31 gauge x 5/16 Use one needle per dose. 6x per day. Increased amount. On sliding scale + 5 injections per day loratadine (CLARITIN) 10 mg tablet Take 1 tablet by mouth once daily. For post nasal drip Lancing Device (BD LANCET DEVICE) [facility] [place] Dispense 1 lancet device. May give generic. Dx: E11.9 sulfamethoxazole-trimethoprim (BACTRIM DS) 800-160 mg per tablet Take 1 tablet by mouth every 12 hours. For 10 days- started 05/07/2023 No current facility-administered medications for this visit. ALLERGIES: Amoxicillin, Cephalexin, Doxycycline, Asenapine Maleate, and Saphris [Asenapine] PERSONAL HISTORY: Social History Tobacco Use Smoking status: Every Day Types: Cigars Smokeless tobacco: Never Tobacco comments: smokes cigars 4 per day Vaping Use Vaping Use: Never used Substance Use Topics Alcohol use: Not Currently Drug use: Yes Frequency: 2.0 times per week Types: Marijuana FAMILY HISTORY Problem Relation Age of Onset Hypertension Mother other (brain aneurysm) Mother 50 Hypertension Father Diabetes Father Heart Father Hypertension Maternal Grandmother Cancer Maternal Grandmother Throat, kidney, breast Heart Maternal Grandmother Mi X 3 Stroke Maternal Grandmother Hypertension Maternal Grandfather Diabetes Paternal Grandmother and High Cholesterol Stroke Paternal Grandmother Cataract Paternal Grandmother Cancer Paternal Grandmother Kidney, liver, lung other (High Cholesterol) Paternal Grandfather other (Kidney Failure) Paternal Grandfather The review of systems data was entered by the nurse and reviewed by ks Nursing Notes: Olivia Cruz LPN 05/07/2023 1:49 PM Signed REVIEW OF SYSTEMS: General: The patient NOTES fatigue, denies weight loss, denies weight gain, NOTES feeling hot, and NOTES feelings of cold. Eyes: The patient denies glaucoma, denies eye injury/surgery, wears glasses or contacts. Ear/Nose/Throat: The patient NOTES allergies, denies hayfever, denies ear infections, and denies bloody noses. Cardiovascular: The patient denies chest pain, denies heart disease, NOTES high blood pressure,denies cardiac stent, denies prior heart attack, denies irregular heart beat, denies high cholesterol, NOTES poor circulation, denies heart failure, other cardiac issues, NOTES claudication, NOTES cold feet, denies peripheral arterial stent. Respiratory: The patient denies tuberculosis, denies pneumonia, denies frequent cough, denies pulmonary embolism, denies shortness of breath, and denies coughing up blood. Gastrointestinal: The patient NOTES difficulty swallowing, NOTES acid reflux, denies ulcers, NOTES vomiting, denies jaundice/hepatitis, denies gallbladder problems, denies black or tarry stools, denies hemorrhoids, denies bleeding from rectum, denies diverticulitis, NOTES constipation, NOTES diarrhea, denies loss of stool control, and denies hernias. Kidney/Bladder: The patient denies kidney stones, NOTES urine infections, and denies bloody urine. Skin: The patient denies a history of skin cancer, denies bleeding/changing moles, and denies a history of skin rash. Neurologic: The patient denies a history of epilepsy/convulsions, NOTES headaches, denies head/spinal injuries, and denies stroke/TIA. Psychiatric: The patient NOTES psychiatric medications, NOTES depression, and denies voices, denies substance abuse. Endocrine: The patient denies thyroid disorders, NOTES diabetes, and denies hormonal problems. Hematologic: The patient NOTES a history of bruising, denies bleeding, and denies anemia, NOTES blood clots. Infections: The patient denies a history of measles and mumps, denies rheumatic fever, and denies sexually transmitted diseases. Musculoskeletal: The patient NOTES back pain/injury, NOTES back problems, denies sciatica, NOTES knee/foot trouble, denies arthritis, or denies gout. When was patient's last Mammogram screening? 06/15/2009 Last Colonoscopy: None [facility] PHYSICAL EXAMINATION: General: The patient is 38 year old female, well nourished, well hydrated in no acute distress. The patient is oriented to time, place, and person. VITALS: Blood pressure 180/108, pulse 114, temperature 36.7 C (98.1 F), temperature source Temporal, resp. rate 12, height 172.7 cm (5' 8 ), weight 94.2 kg (207 lb 9.6 oz), last menstrual period 04/12/2023, SpO2 100 %. Body mass index is 31.57 kg/m . Head: Normal cephalic, atraumatic Eyes: pupils are equally round, sclera are clear/anicteric Neck is supple with no tracheal deviation Cardiac: normal heart sounds, regular Respiratory: normal breath sounds, normal respiratory excursion and pattern. Abdominal exam: benign Prepubic area - right sided small stab incision to area, no fluctuance noted Extremities: no clubbing, cyanosis or edema. Neuro: non focal Psych: normal mood Assessment IMPRESSION: cellulitis with abscess of prepubic area PLAN: I have discussed the above with the patient. She has been following with a plastic surgeon, Dr. Avitia for her history of chronic skin infections and NF. Patient scheduled to see Dr. Avitia on (3 days from today) Continue follow up with Dr. Avitia. No surgical intervention required for now. I have recommended d/c cigarettes use and better control of diabetes. The patient acknowledges above. I have answered all questions to the patient s satisfaction and the patient has no further questions. I have confirmed and edited as necessary, the PFSH and ROS obtained by others. . Diagnoses: (L03.319, L02.219) Cellulitis and abscess of trunk (E11.65) Poorly controlled diabetes mellitus (HCC) (Z72.0) Tobacco use Return to Clinic: The patient will be following up with her plastic surgeon. Medical Decision Making: Problems: Low: Stable chronic illness Risk: Moderate: Drug management Medical Decision Making Level: 3 - Low Kathe Reynolds MD documented in this encounter [facility] 05-07-2023 Note . MICRO - Microbiology PROCEDURE: Culture Wound Aerobic with Gram Stain [*1] SOURCE: Abscess BODY SITE: Abdomen COLLECTED DATE/TIME: 05/04/2023 22:06 EDT RECEIVED DATE/TIME: 05/05/2023 18:41 EDT START DATE/TIME: 05/05/2023 18:41 EDT FREE TEXT SOURCE: FINAL REPORTS Final Report [] Verified Date/Time/Personnel: 05/07/2023 09:13 EDT Few normal skin antoni present. Sensitivity testing not indicated. PRELIMINARY REPORTS Preliminary Report [] Verified Date/Time/Personnel: 05/06/2023 12:01 EDT Culture results pending. STAINS GS [] Verified Date/Time/Personnel: 05/05/2023 22:13 EDT Rare Mononuclear cells Rare Polymorphonuclear cells No organisms seen. Performing Locations *1: This test was performed at: [facility], [address] [place] [address], [id number] , [facility] ([place]) 05-05-2023 Note Discharge Instructions Thank you for allowing [facility] to assist you with your healthcare needs. The following is important discharge information regarding your hospital visit. Your Care Team PHYSICIAN, NONE Your Diagnosis Abscess Abscess - complicated Hidradenitis Hypertension Hypomagnesemia Type 2 diabetes mellitus Vulvar abscess What to do next Follow Up Appointments Follow Up with Go to emergency room if symptoms worsen When Within 2-4 days Follow Up with Call Physician Referral When Within 2-4 days The Following Activity and Diet Have Been Ordered for You Discharge Activity - Ordered -- Resume your pre-hospitalization activity, 05/05/23 14:10:00 EDT Discharge Diet - Ordered -- No changes were made to your diet during your hospital stay. Please resume your pre hospitalization diet on discharge., 05/05/23 14:10:00 EDT The Following Equipment Has Been Ordered for You No qualifying data available. The Following Treatments Have Been Ordered for You Discharge Labs No qualifying data available. Discharge Radiology No qualifying data available. Other Therapies No qualifying data available. Post Acute Orders No qualifying data available. Someone Will Contact You Regarding These Home Health Referrals No home referrals have been ordered for you. No one will call you. Allergies Keflex Saphris (Dizzy) amoxicillin (Itching, Rash) doxycycline Medications Please ask your primary doctor or pharmacist before taking any other medication not listed, including over the counter drugs, herbal medications, vitamins and or supplements as they may interact with your home medications. What How Much When Instructions Last Dose New metroNIDAZOLE (metroNIDAZOLE 500 mg oral tablet) 1 tab(s) by mouth Every 8 hours Duration: 10 Days Pickup at [facility] New sulfamethoxazole-trimethoprim (Bactrim DS 800 mg-160 mg oral tablet) 1 tab(s) by mouth Two (2) times a day Duration: 10 Days Pickup at [facility] Changed omeprazole (omeprazole 40 mg oral delayed release capsule) 1 cap by mouth Once a day 0600 Unchanged albuterol (ProAir HFA MDI (90 mcg/ inh) inhalation aerosol) 2 puff(s) by inhalation Every 6 hours as needed for for wheezing Unchanged dulaglutide (Trulicity Pen 3 mg/ 0.5 mL subcutaneous solution) 0.5 Milliliter Subcutaneous Every week rotate injection sites Unchanged gabapentin (gabapentin 600 mg oral tablet) 2 tab(s) by mouth Two (2) times a day 0900 Unchanged insulin aspart (Novolog) (NovoLOG) 10 unit(s) Subcutaneous Three (3) times a day before meals Unchanged insulin degludec (Tresiba FlexTouch 100 units/ mL 3 mL subcutaneous solution) 40 unit(s) Subcutaneous Daily at bedtime Unchanged loratadine 10 Milligram by mouth Every day Unchanged losartan (Cozaar 25 mg oral tablet) 1 tab(s) by mouth Every day 0900 Unchanged metFORMIN (metFORMIN 500 mg oral tablet) 1 tab(s) by mouth Twice daily with meals Unchanged prazosin (prazosin 1 mg oral capsule) 1 cap by mouth Once a day Pharmacy Information [facility]: [address] [facility] [place], [place] [phone] What How Much When Comments Stop Taking ARIPiprazole (Abilify 5 mg oral tablet) 1 tab(s) by mouth Every day Please take this list to your next doctor s visit. Bring all medications you take, including over the counter medications, herbals and other supplements with you to your doctor s visit. Patients and families are reminded to discard old lists and to update any records with all medication providers or retail pharmacies. Education Materials Abscess (Incision & Drainage) An abscess is sometimes called a boil. It happens when bacteria get trapped under the skin and start to grow. Pus forms inside the abscess as the body responds to the bacteria. An abscess can happen with an insect bite, ingrown hair, blocked oil gland, pimple, cyst, or puncture wound. Your healthcare provider has drained the pus from your abscess. If the abscess pocket was large, your healthcare provider may have put in gauze packing. Your provider will need to remove it on your next visit. He or she may also replace it at that time. You may not need antibiotics to treat a simple abscess, unless the infection is spreading into the skin around the wound (cellulitis). The wound will take about 1 to 2 weeks to heal, depending on the size of the abscess. Healthy tissue will grow from the bottom and sides of the opening until it seals over. Home care These tips can help your wound heal: The wound may drain for the first 2 days. Cover the wound with a clean dry dressing. Change the dressing if it becomes soaked with blood or pus. If a gauze packing was placed inside the abscess pocket, you may be told to remove it yourself. You may do this in the shower. Once the packing is removed, you should wash the area in the shower, or clean the area as directed by your provider. Continue to do this until the skin opening has closed. Make sure you wash your hands after changing the packing or cleaning the wound. If you were prescribed antibiotics, take them as directed until they are all gone. You may use acetaminophen or ibuprofen to control pain, unless another pain medicine was prescribed. If you have liver disease or ever had a stomach ulcer, talk with your doctor before using these medicines. Follow-up care Follow up with your healthcare provider, or as advised. If a gauze packing was put in your wound, it should be removed in 1 to 2 days. Check your wound every day for any signs that the infection is getting worse. The signs are listed below. When to seek medical advice Call your healthcare provider right away if any of these occur: Increasing redness or swelling Red streaks in the skin leading away from the wound Increasing local pain or swelling Continued pus draining from the wound 2 days after treatment Fever of 100.4 F (38 C) or higher, or as directed by your healthcare provider Boil returns when you are at home [phone] [employer]. [address] [place] [address]. All rights reserved. This information is not intended as a substitute for professional medical care. Always follow your healthcare professional's instructions. Additional Information VACCINATE! IT SAVES LIVES! Members of the community who have not yet received the COVID-19 vaccine and would like to receive it can visit one of [facility] vaccine clinics. There are many vaccine clinic locations within the [facility]. For locations and available times, please visit [email or web address].[email or web address] [email or web address] It is important to note that some COVID mobile vaccine clinics are held outdoors and may be canceled in rainy or stormy conditions. To learn more about pediatric vaccinations (ages 5-11), we invite you to visit the [facility] webpage. [email or web address].[email or web address].org/pages /[email or web address]-Uskzq-Yrvkzitvpes-Frequently-A sked-Questions.html To learn more about the COVID-19 vaccine, we invite you to visit the CDC website for a list of frequently asked questions.https://www.cdc.gov/wilkerson virus/2019-ncov/vaccines/faq.html [facility] Patient Portal Access Instructions: Stay connected with your healthcare team and access your personal medical information anytime with the [facility] Patient Portal. Please follow the directions below to create your [facility] account: 1.Access the email account you provided upon registration to the hospital/physician office.2.Look for an invitation email from [facility].3.Open the email and access the invitation link: Accept Invitation to [facility].4.Fill in the required lara to create your account. To access your account, visit [email or web address]. Click the blue button labeled Access Patient Portal and then log in with the username and password that you created in the steps above. You will be able to view your test results, lab results, a summary of your visits, upcoming appointments and more. There is also a convenient messaging option where you can send secure messages to your provider. In addition, you will have the ability to download any documents or summaries to your computer and/or send the information securely to a physician. Remember that your healthcare information is confidential, so carefully consider who you will allow to register on the [facility] Patient Portal for access to your information. You can also access the [facility] Patient Portal on the [employer] myla. Simply click on Patient Portal and then log into your account. If you would like to receive a full copy of your medical records, please contact the [facility] Medical Records Department by calling [phone], Sunday through Sunday between 8 a.m. and 4:30 p.m. HOW TO SAFELY DISPOSE OF PRESCRIPTION MEDICATIONS Please use one of the following methods to safely dispose of your unused medications. 1.Use a drug disposal kit: the drug disposal pouch allows you to safely discard your old and unused drugs. Ask your nurse to give you one when you are discharged.2.Visit a local take-back location: Many local pharmacies and police departments have programs that collect old and unwanted prescription drugs. Call your local pharmacy or go to http://[employer]/2Y7Ww5j to find one close to you.3.Make use of household items: Use cat litter or old coffee grounds to dispose medications if other options are not available. Mix your drugs with these household products, seal them in an airtight container and throw it into the garbage. Call [facility]: [phone] to be sure your drugs can be disposed of in this way. Some medicines may require a different approach.4.Never flush your medications down the toilet. IF YOU HAVE BEEN PRESCRIBED AN OPIOID FOR PAIN If you have been prescribed an opioid (such as hydrocodone, oxycodone or morphine), it is critical to understand the possible side effects and risks of opioid pain medications. Even when taken as directed, opioids can have several side effects including: Tolerance, meaning you might need to take more of a medication for the same pain relief. Nausea, vomiting and/or constipation. Sleepiness, dizziness, dry mouth, confusion, depression or itching. Physical dependence, meaning you have withdrawal symptoms when a medication is stopped, can develop within a few days. KNOW YOUR RESPONSIBILITIES It is important to know exactly how much and how often to take the opioid pain medications you are prescribed. Never take opioids in higher amounts or more often than prescribed. Do not combine opioids with alcohol or other drugs that cause drowsiness, such as benzodiazepines, also known as benzos, including diazepam and alprazolam, muscle relaxants or sleep aids. Never sell or share prescription opioids. This is illegal. Store opioids in a secure place and out of reach of others (including children, family, friends and visitors). The last page of this document has been signed and retained as a CHART COPY. Signatures Patient Education Materials Abscess, Incision And Drainage Medication Leaflets My discharge plan and instructions have been reviewed and explained to me and IJONAS TAMERA M understand my current condition and have read and understand these discharge instructions. I have received a written copy of the plan/instructions. If I have questions, I am aware that I should contact my doctor. 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 no erythema or induration noted in thee wound area. wound care supplies provided to pt and pt verbalized understanding of wound care Digitally Signed by MIRIAM Vieyra on 05/05/2023 04:55 PM [facility] 05-05-2023 Note Date of Service 05/05/2023 Chief Complaint pt states she has had and abscess on her pubic area over last 3 days. History of Present Illness 38-year-old female with past medical history significant for type 2 diabetes mellitus, poorly controlled, hidradenitis, DVT/PE, recurrent vulvar abscess, necrotizing fasciitis, HTN-labile/follows with nephrology, morbid obesity, PCOS, anxiety/depression, bipolar disorder, fibromyalgia, PTSD, personality disorder, Gastroparesis dysautonomia. Patient presented to [facility] emergency department on 05/04/2023 with complaints of right groin abscess. She was referred by her hydraulic specialist. She had just been treated for the same with Augmentin for 10 days earlier this month. In the emergency department she had a low-grade temperature of 37.5. She was initially hypertensive. No leukocytosis. test negative. Glucose 469, sodium 134. Lactic acid 1.6. CT abdomen and pelvis shows 2.5 cm abscess in the inferior right pelvic region with surrounding inflammatory changes. No evidence of soft tissue gas. Renomegaly with wedge shaped hypodensity in the mid lateral spleen which can be seen as sequelae of splenic infarct. In the emergency department she was given a dose of 2 g of vancomycin, 1 L normal saline, Humalog 10 units. She was subsequently admitted. Overnight she has remained afebrile and hemodynamically stable. No fevers or leukocytosis. She denies any headaches or dizziness. No chest pain or palpitations. No nausea or vomiting. No constipation/diarrhea. Voiding adequately. Patient reports minimal discomfort of vulvar abscess with palpation. It is packed but she has had no drainage. Review of Systems See HPI for specific ROS. All other systems reviewed and negative. Physical Exam Vitals and Measurements T: 36.6 C (Oral) TMIN: 36.6 C (Oral) TMAX: 37.5 C (Oral) HR: 79(Apical) RR: 20 BP: 125/66 SpO2: 99% HT: 172.7 cm WT: 93.3 kg BMI: 31.28 Weight Dosing Weight: 93.3 kg (05/05/23) GEN: Appears chronically ill EYES: No conjunctival erythema, drainage. EOMI EARS: Hearing grossly intact. NOSE: No nasal discharge. THROAT: Oral cavity and pharynx pink and moist. CHEST: Normal S1 and S2. Rhythm is regular. Clear to auscultation, without rales, rhonchi, wheezing. ABD: Positive bowel sounds x 4 quads. Soft, nondistended, nontender. EXT: No significant deformity or joint abnormality. No edema. Peripheral pulses intact. NEURO: Sensation grossly intact SKIN: Left sided vulvar abscess. This area was packed in the ED. No surrounding warmth or erythema. No drainage around the packing. Patient is able to tolerate palpation with only minimal discomfort. PSYCH: The mental examination revealed the patient was alert and oriented x 4 Lab Results 05/05 11:22 WBC: 5.2 Hgb: 13.1 Hct: 38.9 Platelet: 117 L Neutrophil %: 51.9 Glucose Level: 105 Sodium Level: 138 Potassium Level: 3.9 BUN: 14 Creatinine Lvl (s): 0.70 05/04 19:31 WBC: 7.5 Hgb: 13.9 Hct: 41.2 Platelet: 130 Neutrophil %: 67.2 Glucose Level: 469 C Sodium Level: 134 L Potassium Level: 4.7 BUN: 16 Creatinine Lvl (s): 0.95 Imaging Results and Diagnostics CT Pelvis w/ IV Contrast Only Result Date: May 04, 2023 Verified By: MAXWELL MANCUSO MD CLINICAL STATEMENT: IMPRESSION: 2.5 cm abscess in the inferior right pelvic region with surroundinginflammatory changes. No evidence of soft tissue gas. Splenomegaly with wedge-shaped hypodensity in the mid-lateral spleen, whichcan be seen as sequelae of splenic infarct. Additional findings as above. I have personally reviewed the images of this examination and agree with theresident's findings and interpretation. Assessment/Plan 1. Vulvar abscess 2. Hidradenitis 3. Type 2 diabetes mellitus 4. Hypertension 5. Hypomagnesemia Vulvar abscess She does have a history of necrotizing fasciitis. Cultures were sent from the ER. Patient received A dose of ertapenem and 2 doses of vancomycin. She has no leukocytosis or fevers. No draining around the packing. No erythema or warmth. Only minimal tenderness with palpation. Patient has a history of hidradenitis suppurativa. She has had I&D's in the past and is comfortable with wound care. Type 2 diabetes mellitus- Glucose goal 180 or less and avoid hypoglycemia. Add corrective sliding scale insulin. ADA diet. HTN- SBP goal 140 or less. Continue home antihypertensives. Patient's hypertension is labile. She follows with nephrology for this. Hypomagnesemia magnesium level 1.6. Magnesium sulfate 4 g IV. DVT prophylaxis: Lovenox Code Status: Full code Plan of care discussed with patient. All questions answered. Patient verbalizes understanding is agreeable to plan of care. This dictation was performed using voice recognition software and may include grammatical and/or spelling errors. Problem List/Past Medical History Ongoing Bipolar disorder Diabetes DVT - Deep vein thrombosis of lower limb Fatty liver GERD - Gastro-esophageal reflux disease Hypertension MRSA infection Personality disorder PTSD - Post-traumatic stress disorder Schizoaffective disorder Historical No qualifying data Procedure/Surgical History Meniscus of knee joint Medications Home Medications (11) Active Abilify 5 mg oral tablet 5 mg = 1 tab(s), Oral, Daily Cozaar 25 mg oral tablet 25 mg = 1 tab(s), Oral, Daily gabapentin 600 mg oral tablet 1,200 mg = 2 tab(s), Oral, BID loratadine 10 mg, Oral, Daily metFORMIN 500 mg oral tablet 500 mg = 1 tab(s), Oral, BIDM NovoLOG 10 unit(s), Subcutaneous, TIDAC omeprazole 40 mg oral delayed release capsule 40 mg = 1 cap(s), Oral, qDay prazosin 1 mg oral capsule 1 mg = 1 cap(s), Oral, qDay ProAir HFA MDI (90 mcg/inh) inhalation aerosol 2 puff(s), PRN, Inhalation, q6h Tresiba FlexTouch 100 units/mL 3 mL subcutaneous solution 40 unit(s), Subcutaneous, qHS Trulicity Pen 3 mg/0.5 mL subcutaneous solution 3 mg = 0.5 mL, Subcutaneous, qWeek Allergies Keflex Saphris (Dizzy) amoxicillin (Itching, Rash) doxycycline Social History Smoking Status - 08/01/2016 Current every day smoker Alcohol Use: denies., 05/04/2023 Substance Abuse Use: Current. Type: Marijuana. Frequency: Daily., 05/04/2023 Tobacco Nicotine Use: Cigars or pipes daily within last 30 days. Type: Cigars., 05/04/2023 Family History Aneurysm 02-Feb-2016 02:33:12<$>: Mother. Aneurysm of anterior cerebral artery: Mother. Breast cancer: Grandparent. COPD (chronic obstructive pulmonary disease) 02-Feb-2016 02:40:22<$>: Mother. Cardiovascular disease: Grandparent. Diabetes mellitus: Father. Esophageal cancer: Grandparent. HTN - Hypertension: Mother and Father. High blood pressure: Mother and Father. Liver cancer: Grandparent. Renal cancer: Grandparent. Stroke: Grandparent. Immunizations No qualifying data available. Code Status Code Status - Ordered -- 05/04/23 21:58:00 EDT, Full Code, Constant Order Digitally Signed by ELEANOR JIMENEZ on 05/05/2023 02:07 PM [facility] 1. Vulvar abscess 2. Hidradenitis 3. Type 2 diabetes mellitus 4. Hypertension 5. Hypomagnesemia Vulvar abscess She does have a history of necrotizing fasciitis. Cultures were sent from the ER. Patient received A dose of ertapenem and 2 doses of vancomycin. She has no leukocytosis or fevers. No draining around the packing. No erythema or warmth. Only minimal tenderness with palpation. Patient has a history of hidradenitis suppurativa. She has had I&D's in the past and is comfortable with wound care. Type 2 diabetes mellitus- Glucose goal 180 or less and avoid hypoglycemia. Add corrective sliding scale insulin. ADA diet. HTN- SBP goal 140 or less. Continue home antihypertensives. Patient's hypertension is labile. She follows with nephrology for this. Hypomagnesemia magnesium level 1.6. Magnesium sulfate 4 g IV. DVT prophylaxis: Lovenox Code Status: Full code Plan of care discussed with patient. All questions answered. Patient verbalizes understanding is agreeable to plan of care. This dictation was performed using voice recognition software and may include grammatical and/or spelling errors. Diagnostic Tests Pending * Urine Culture 05/04/23 [facility] 09-29-2023 Hospital Discharge instructions Patient Education 05/04/2023 19:23:41 Abscess, Incision And Drainage Abscess (Incision & Drainage) An abscess is sometimes called a boil. It happens when bacteria get trapped under the skin and start to grow. Pus forms inside the abscess as the body responds to the bacteria. An abscess can happen with an insect bite, ingrown hair, blocked oil gland, pimple, cyst, or puncture wound. Your healthcare provider has drained the pus from your abscess. If the abscess pocket was large, your healthcare provider may have put in gauze packing. Your provider will need to remove it on your next visit. He or she may also replace it at that time. You may not need antibiotics to treat a simple abscess, unless the infection is spreading into the skin around the wound (cellulitis). The wound will take about 1 to 2 weeks to heal, depending on the size of the abscess. Healthy tissue will grow from the bottom and sides of the opening until it seals over. Home care These tips can help your wound heal: The wound may drain for the first 2 days. Cover the wound with a clean dry dressing. Change the dressing if it becomes soaked with blood or pus. If a gauze packing was placed inside the abscess pocket, you may be told to remove it yourself. Youmay do this in the shower. Once the packing is removed, you should wash the area in the shower, or clean the area as directed by your provider. Continue to do this until the skin opening has closed. Make sure you wash your hands after changing the packing or cleaning the wound. If you were prescribed antibiotics, take them as directed until they are all gone. You may use acetaminophen or ibuprofen to control pain, unless another pain medicine was prescribed. If you have liver disease or ever had a stomach ulcer, talk with your doctor before using these medicines. Follow-up care Follow up with your healthcare provider, or as advised. If a gauze packing was put in your wound, it should be removed in 1 to 2 days. Check your wound every day for any signs that the infection is getting worse. The signs are listed below. When to seek medical advice Call your healthcare provider right away if any of these occur: Increasing redness or swelling Red streaks in the skin leading away from the wound Increasing local pain or swelling Continued pus draining from the wound 2 days after treatment Fever of 100.4 F (38 C) or higher, or as directed by your healthcare provider Boil returns when you are at home [phone] [employer]. [address] [place] [address]. All rights reserved. This information is not intended as a substitute for professional medical care. Always follow yourhealthcare professional's instructions. Follow Up Care 05/04/2023 18:47:22 With:Go to emergency room if symptoms worsen Address:Unknown When:2-4 days With:Call Physician Referral Address:Unknown When:2-4 days [facility] 09-29-2023 Note ORIGINAL EXAMINATION: CT OF THE PELVIS WITH CONTRAST 05/04/2023 9:14 pm TECHNIQUE: CT of the abdomen/pelvis was performed with the administration of intravenous contrast. Multiplanar reformatted images are provided for review. Automated exposure control, iterative reconstruction, and/or weight based adjustment of the mA/kV was utilized to reduce the radiation dose to as low as reasonably achievable. COMPARISON: None. HISTORY: ORDERING SYSTEM PROVIDED HISTORY: Reason for Exam: abscess in groin. onset 3 days. Hx of necrotizing fasciitis. abscess FINDINGS: No acute osseous abnormalities. Minimal degenerative changes of the spine. The visualized lung bases are predominantly clear. The heart is normal in size. No pericardial or pleural effusion. The liver is unremarkable. Splenomegaly with wedge-shaped hypodensity in the mid spleen laterally. The pancreas and adrenal glands are unremarkable. The kidneys enhance symmetrically. Subcentimeter hypodensity in the left upper pole is too small to characterize, however statistically represents a renal cyst. Punctate nonobstructing bilateral nephrolithiasis. No evidence of hydronephrosis or obstructive uropathy. The bladder is unremarkable. Likely a 3.5 cm left ovarian cyst/follicle which does not require interval follow-up. Pelvic phleboliths. Unremarkable appendix. Distended stomach with recently ingested material. The small bowel and colon are unremarkable. Small amount of fluid in the distal esophagus can be seen with reflux. The aorta is normal in course and caliber. No pathologically enlarged lymph nodes are identified. No free intraperitoneal air. Small amount of free intraperitoneal fluid may be physiologic in nature. There is a 2.5 cm peripherally enhancing fluid collection in the inferior right pelvic region with surrounding inflammatory changes that extend medially. No soft tissue gas is identified. IMPRESSION: 2.5 cm abscess in the inferior right pelvic region with surrounding inflammatory changes. No evidence of soft tissue gas. Splenomegaly with wedge-shaped hypodensity in the mid-lateral spleen, which can be seen as sequelae of splenic infarct. Additional findings as above. I have personally reviewed the images of this examination and agree with the resident's findings and interpretation. Interpreted by: Maxwell Mancuso Preliminary Report By: Jose King Electronically signed By Maxwell Mancuso Dictated Date: 05/04/2023 9:22:51 PM Prelim Date: 05/04/2023 9:34:38 PM Sign Date: 05/04/2023 10:03:28 PM Ordering Provider: [facility]09-21-2023 [facility] of Present illness Narrative* Willis Rodriguez MD - 04/26/2023 9:06 AM EDT Patient presents with: Right Arm - Established Patient: 7 weeks post fx right ulna - see telephone encounter 04/23/2023 Xray 04/26/2023 Patient states her cast was removed 2 weeks ago and was given the brace to wear. States that anything touching that arm hurts so she has not been wearing it. States that she is probably over using her arm which has been making the arm hurt more. Her boyfriend, Jeremy, is with her today. AMB ROOMING INTAKE FLOWSHEET DATA Pain Pain Level: 7 (states she is using her arm more than she is supposed to) Pain Location: Arm-Forearm Right Description: Sharp, Shooting, Burning Duration Amount of Time: (ongoing) Frequency: Continuous Intervention/Comfort measure: Medication, Reposition, Cold She is just having some palpable callus on the superficial border of the ulna. Everything looks quite well. Continue bracing and gentle activities. Willis Rodriguez [facility] History of Present illness Narrative* Salima Jordan RT(R) - 04/26/2023 8:50 AM EDT Radiology Service Progress Note PATIENT NAME: Kathleen Mcdaniel DATE OF SERVICE: April 26, 2023 TIME: 8:43 AM PATIENT IDENTITY VERIFICATION COMPLETED USING TWO (2) IDENTIFIERS: Name and Date of confirmedby patient verbally. FALL SCREENING: Has the patient had 2 falls in the last year or 1 fall with injury or currently using an Ambulatory Assistive Device (Walker, Cane, Wheelchair, Crutches, etc.)? No PATIENT GENDER DATA: Female. status: : No status: NO. PATIENT RELEVANT IMPLANT DATA REVIEWED: Yes RADIOLOGY DEPARTMENT: General X-ray: Exam(s) Completed: Upper Extremity X- Ray(s): Forearm, right PERIPHERAL IV DATA: Not applicable SIGNED BY: RT Charmaine(R) April 26, 2023 8:43 AM documented in this encounterP[facility]09-07-[facility]23 [facility]23 History of Present illness Narrative* Shelby Klein RT(R) - 04/12/2023 2:20 PM EDT Radiology Service Progress Note PATIENT NAME: Kathleen Mcdaniel DATE OF SERVICE: April 12, 2023 TIME: 2:12 PM PATIENT IDENTITY VERIFICATION COMPLETED USING TWO (2) IDENTIFIERS: Name and Date of confirmedby patient verbally. FALL SCREENING: Has the patient had 2 falls in the last year or 1 fall with injury or currently using an Ambulatory Assistive Device (Walker, Cane, Wheelchair, Crutches, etc.)? No PATIENT GENDER DATA: Female. status: : No status: NO. PATIENT RELEVANT IMPLANT DATA REVIEWED: Not Applicable RADIOLOGY DEPARTMENT: General X-ray: Exam(s) Completed: Upper Extremity X- Ray(s): Forearm, right PERIPHERAL IV DATA: Not applicable SIGNED BY: RT Trinh(R) April 12, 2023 2:12 PM documented in this encounterPomerene Hospital08-28-2023 Note[facility]08-17-2023 [facility] History of Present illness Narrative* Willis Rodriguez MD - 03/22/2023 10:05 AM EDT Willis Rodriugez MD Department of Orthopaedics Orthopaedics [address] [facility] [address] Dept: [phone] Dept March 22, 2023 CHIEF COMPLAINT: Established Patient and Fracture of the Right Forearm (Right ulnar displaced fracture new xrays taken 03/21/23) HPI Patient presents with: Right Forearm - Established Patient, Fracture: Right ulnar displaced fracture new xrays taken 03/21/23 Patient reports constant pain that increases with activity. She wears a sling daily. AMB ROOMING INTAKE FLOWSHEET DATA Pain Pain Level: 6 Pain Location: Arm-Forearm Right Description: Aching, Sharp, Shooting, Radiating Duration Amount of Time: 2 Duration Units: Days Frequency: Continuous Intervention/Comfort measure: Medication ASSESSMENT: S52.231D Closed displaced oblique fracture of shaft of right ulna with routine healing, subsequent encounter (primary encounter diagnosis) PLAN: She displaced her prior fracture, but only slightly. One could make the argument to ORIF, however, she has multiple co-morbidities and a lot going on which makes surgical option not favorable. I think we can get this under control with a cast and then transition her to a functional brace. FOLLOW UP INSTRUCTIONS: We'll see her back in 3-4 weeks. OBJECTIVE: Ms. Kathleen Mcdaniel is a pleasant 38 year old in no apparent distress. Gen:LMP 12/11/2022 nl development, non obese, no deformities ENT: Normocephalic, normal hearing, moist mucosa CV: Pulses:Radial= 2+ and symmetric, capillary refill < 2 secs, no peripheral edema/varicosities Skin: no rash, bruising or lesions. Good turgor. Psych: cooperative and appropriate, alert and oriented x 3, good mood and affect. Musculoskeletal: tender at the fracture site. IMAGING: IMPRESSION: COMMINUTED ULNAR STYLOID FRACTURE WITH NO DISPLACEMENT OF DISTAL FRACTURE FRAGMENT Assurance Specialist: [facility] Transcribe Date/Time: Mar 25 2023 3:02P Dictated by : STEVEN BARTON MD This examination was interpreted and the report reviewed and electronically signed by: STEVEN BARTON MD on Mar 25 2023 3:04PM EST Results-Findings * * *Final Report* * * DATE OF EXAM: Mar 21 2023 12:30PM [id number] - XR FOREARM 2V AP/LAT RT / PROCEDURE REASON: Closed nondisplaced transverse fracture of shaft of right ulna with routine heal * * * * Physician Interpretation * * * * HISTORY: 37-YEAR-OLD FEMALE WITH Closed nondisplaced transverse fracture of shaft of right ulna with routine healing, subsequent encounter . PT STATES SHE FELL YESTERDAY AT HOME. PREVIOUS FOREARM FRACTURE. 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 Days Frequency: Continuous Intervention/Comfort measure: Medication, Reposition documented in this encounterPomerene Hospital08-04-2023 Note[facility]08-04-2023 [facility]08-04-2023 [facility]08-04-[facility] History of Present illness Narrative* Crystal Foster Ma - 03/09/2023 11:52 AM EDT PT ASSESSMENT - CASTING ROOM Kathleen presents for Application of cast. Applied short cast: to Right arm using 3 rolls of gortex and 2 rolls of fiberglass. Patient has been instructed in Care of cast. Verbal instructions given. Printed instructions added to AVS for patient. Appointment scheduled for 1 week. Crystal Foster Ma * Star Reece V, DO - 03/09/2023 11:20 AM EDT SUBJECTIVE: Kathleen Mcdaniel is a 37 year old female who is here for a right ulna injury. It occurred yesterdaywhen she swung her arm at her boyfriend, hitting the forearm on his knee. Symptoms include pain over the mid forearm. She was seen in [facility] care, has tried sling and splint. 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/2014 MRSA (methicillin resistant staph aureus) culture positive chronic, legs, groins, armpit Obesity 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 Oligomenorrhea 10/27/2009 Other and unspecified hyperlipidemia 08/29/2005 Papanicolaou smear of cervix with atypical squamous cells of undetermined significance (ASC-US) 2007 Papanicolaou smear of cervix with low grade squamous intraepithelial lesion (LGSIL) PCOS (polycystic ovarian syndrome) Schizophrenia (HCC) 04/21/2010 [facility] Unspecified essential hypertension 08/29/2005 PAST SURGICAL HISTORY Procedure Laterality Date ARTHRS KNE SURG W/MENISCECTOMY MED/LAT W/SHVG 11/13/2014 Left knee arthroscopic medial meniscus repair COLPOSCOPY CERVIX UPPER/ADJACENT VAGINA 11/2007 Colposcopy [facility] SKN SUBQ T/M/F NECRO INFCTJ ABDL WALL 09/15/2016 Extensive debridement for necrotizing fasciitis-30 x 14 x 8 cm ESOPHAGOGASTRODUODENOSCOPY TRANSORAL DIAGNOSTIC 02/26/2008 EGD PAST SURGICAL HISTORY OF RFA lumbar, SI joint injections VAGINOSCOPY 07/15/2012 Current Outpatient Medications on File Prior to Visit Medication Sig topiramate (TOPAMAX) 100 mg tablet Take 1 tablet by mouth twice daily. pyridostigmine (MESTINON) 60 mg tablet Take 1 tablet by mouth three times daily. gabapentin (NEURONTIN) 600 mg tablet Take 2 tablets by mouth twice daily for 180 days. Alpha Lipoic Acid 200 mg tab Take by mouth three times daily. Biotin 800 mcg tab Take 1 tablet by mouth once daily. losartan (COZAAR) 25 mg tablet Take 1 tablet by mouth once daily. insulin lispro (HUMALOG KWIKPEN) 100 unit/mL Inject 20 Units subcutaneously twice daily before meals. or by sliding scale based on mealtime blood sugar insulin degludec (TRESIBA FLEXTOUCH U-100) 100 unit/mL (3 mL) injection pen Inject 70 Units subcutaneously every morning. omeprazole (PRILOSEC) 40 mg capsule Take 1 capsule by mouth once daily. metFORMIN ER (GLUCOPHAGE XR) 500 mg 24 hr tablet Take 2 tablets by mouth twice daily before meals. loratadine (CLARITIN) 10 mg tablet Take 1 tablet by mouth once daily. For post nasal drip albuterol HFA (VENTOLIN HFA) 90 mcg/actuation inhaler inhale 2 puffs every 4 hours as needed for wheezing and shortness of breath Lancets lancets Test blood sugar(s) 6 to 7 times daily. Dx: Type 2 DM - Uncontrolled E11.65 Insulin: Yes insulin needles, DISPOSABLE, (PEN NEEDLE) 31 gauge x 5/16 Use one needle per dose. 6x per day. Increased amount. On sliding scale + 5 injections per day blood sugar diagnostic (BLOOD GLUCOSE TEST) test strip Test blood sugar(s) 6 to 7 times daily. Dx: Type 2 DM - Uncontrolled E11.65 Z79.4 Insulin: Yes Lancing Device (BD LANCET DEVICE[place] [facility] [place]ense 1 lancet device. May give generic. Dx: E11.9 No current facility-administered medications on file prior to visit. EXAM: General: cooperative and NAD Location: Right arm: tenderness over distal 1/3 of ulna with direct palpation Negative for: deformity or crepitation Neurovascular: Slight decrease sensation over the ulnar nerve distribution to the hand. Capillary refill at the fingertips is 2+ X-ray: Nondisplaced fracture noted in the shaft of the ulna. The radius appears intact. There is no significant soft tissue swelling. IMPRESSION: Closed nondisplaced fracture of third shaft of right ulna PLAN: Discussed treatment plans and options with patient. Discussed the risk of delayed union or nonunion that she is a smoker. Discussed potential need for surgical intervention should angulation or displacement develop in healing. Discussed utilization of a long-arm cast versus a short arm cast with sling and special attention to avoid forearm rotation. Short arm cast applied today. Patient will remain in sling during activity over the next week Recheck in 1 week with x-ray to confirm fracture position Star Reece DO * Crystal Foster Ma - 03/09/2023 11:08 AM EDT AMB ROOMING INTAKE FLOWSHEET DATA Pain Pain Level: 7 Pain Location: Arm-Right Description: Sharp, Throbbing Duration Amount of Time: 1 Duration Units: Days Frequency: Continuous Intervention/Comfort measure: Splinting, Medication documented in this encounterPomerene Hospital08-04-2023 Instructions* Patient Instructions* Crystal Foster Ma - 03/09/2023 11:42 AM EDT CAST CARE INSTRUCTIONS You have a fiberglass/plaster cast. Casts keep broken bones in place so they can heal. They are also used in other injuries to immobilize the injured area and allow for healing. For similar reasons they are used after some types of surgery. Fiberglass casts are telephone coin box collector in weight and more durable. Plaster casts can be made to more accurately conform to your arm or leg. It is possible to take x-rays through the cast to check fracture alignment and healing. Below are some things you should be aware of: 1) You should elevate your injured extremity above the level of your heart (i.e. use pillows to elevate your arm or leg, this will help minimize swelling). If your cast is too tight, fingers or toes may become swollen or numb and often your arm or leg will become more painful. You should continue elevation until swelling is no longer a problem, after days of experience this will be easier for youto determine. A safe rule of thumb is to continue to elevate your injured extremity as much as possible until your first follow-up appointment. 2) Protect your cast until it finishes hardening, this is about 3 days for a plaster cast or 2 hours for a fiberglass cast. This specifically means you SHOULD NOT walk on a walking cast until afterthis time period. 3) If your cast is waterproof, you can skip to #4. If your cast is plaster or not waterproof, keep your cast dry. The fiberglass cast is more water resistant than plaster but the padding inside the cast is not water resistant. Soaking wet cast padding will eventually cause damage to your skin. Use a water tight plastic bag to keep your cast dry while showering. We have bags specifically designed for this purpose if your desire one. Our experience has been that no bag is very effective in keeping the cast dry if you submerge it under water such as in a bathtub or a swimming pool. If your cast does accidentally get wet and you have a fiberglass cast, use a co founder and chairman on LOW temperature setting and high FAN setting until the cast completely dried out, including the padding inside it. This will probably take several DAYS. Please note that getting your cast wet will probably also cause it tohave an unpleasant odor. 4) Avoid high temperature and high humidity situations (sweat makes a cast uncomfortable and will cause it to smell). 5) Do not pull any cast padding from inside your cast. If you feel your cast needs trimming contactus so that we may have you come to the office for this purpose. 6) Never try to relieve an itch by inserting anything under the cast such as a coat back hanger, wire, stick, etc. This commonly will cause small scratches in your skin which, because of the environment under the cast, may become infected. This infection may not be visible until it becomes quite severe because it is underneath the cast. Often a co founder and chairman on a cool setting blowing in the opening of the cast may help. If itching persists please call our office. 7) You may autograph or write on your cast once it is completely dried. Magic marker and pen works best, do not use paint or crayons. WARNING SIGNS -- this can mean something is wrong. 1) Increased pain. 2) Numbness or tingling in your hand or foot. 3) Excessive swelling below the cast, not relieved by elevation. 4) Foul smell or appearance of drainage on your cast. 5) A fever which is not associated with other illnesses. DO'S AND DON'TS 1) DON'T break off rough edges or trim your cast. 2) DO inspect the cast daily, call if it is cracked, becomes soft , or it is rubbing against your skin. 3) DO keep your cast clean and dry. 4) DON'T pull out the cast padding. 5) DON'T stick objects inside the cast. 6) DON'T use ice on your plaster cast. 7) DO exercise your fingers or toes and try to move them as much as the cast will permit. Frequently asked questions: Can I wash my waterproof fiberglass cast? Yes, washing or rinsing inside your fiberglass cast may reduce odor and irritation and improve the overall skin condition of the cast area. You may use a spray nozzle at a sink or flexible shower head to rinse inside your cast with warm water. Never insert any object into your cast for any purpose.No special drying procedures are necessary after wetting. Make sure you rinse out all soap after showering. If you are at the beach, make sure you rinse out any sand. If you have any questions or anything seems wrong, please contact our Orthopedic office immediatelyat and ask to speak with a nurse. After hours you can call the Clinic at and the '[id number]' can answer your questions or she will page Dr. Rodriguez if needed. documented in this encounterPomerene Hospital08-03-2023 Note[facility]08-03-2023 [facility]08-03-2023 History of Present illness Narrative* Darwin Patel PA-C - 03/08/2023 7:59 PM EDT This note was created using [employer]. Subjective Kathleen Mcdaniel is a 37 year old female. HPI Patient presents with multiple complaints. First her right forearm is hurting as she had hit it on her boyfriend's forearm who has a metal plate. This happened about 5 hours ago. No weakness numbnessor tingling. Painful to touch the mid forearm. Patient also complaining of tailbone pain. States she had slipped and fallen and landed on her tailbone about 3 weeks ago. Still is bothering her off and on. No pain into her legs. No weakness numbness tingling. Patient also complaining of left ear pain the past several days. No drainage of the ear. She statessometimes the pain goes into her neck. Some scratchy throat. No fever. No recent swimming. Review of Systems Constitutional: Negative. HENT: Positive for ear pain and sore throat. Negative for ear discharge, hearing loss, sinus pressure and sinus pain. Respiratory: Negative for cough. Cardiovascular: Negative. Gastrointestinal: Negative. Musculoskeletal: Right forearm pain, tailbone pain Skin: Negative. All other systems reviewed and are negative. 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 11/23/2014 MRSA (methicillin resistant staph aureus) culture positive chronic, legs, groins, armpit Obesity 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 180 tablet 1 pyridostigmine (MESTINON) 60 mg tablet Take 1 tablet by mouth three times daily. 270 tablet 0 gabapentin (NEURONTIN) 600 mg tablet Take 2 tablets by mouth twice daily for 180 days. 360 tablet 1 Alpha Lipoic Acid 200 mg tab Take by mouth three times daily. Biotin 800 mcg tab Take 1 tablet by mouth once daily. losartan (COZAAR) 25 mg tablet Take 1 tablet by mouth once daily. 90 tablet 5 insulin lispro (HUMALOG KWIKPEN) 100 unit/mL Inject 20 Units subcutaneously twice daily before meals. or by sliding scale based on mealtime blood sugar 30 mL 1 insulin degludec (TRESIBA FLEXTOUCH U-100) 100 unit/mL (3 mL) injection pen Inject 70 Units subcutaneously every morning. 15 mL 5 omeprazole (PRILOSEC) 40 mg capsule Take 1 capsule by mouth once daily. 30 capsule 11 Lancets lancets Test blood sugar(s) 6 to 7 times daily. Dx: Type 2 DM - Uncontrolled E11.65 Insulin: Yes 200 Each 11 insulin needles, DISPOSABLE, (PEN NEEDLE) 31 gauge x 5/16 Use one needle per dose. 6x per day. Increased amount. On sliding scale + 5 injections per day 200 Each 11 metFORMIN ER (GLUCOPHAGE XR) 500 mg 24 hr tablet Take 2 tablets by mouth twice daily before meals. 120 tablet 11 loratadine (CLARITIN) 10 mg tablet Take 1 tablet by mouth once daily. For post nasal drip 30 [id number] Lancing Device (BD LANCET DEVICE[place] [facility] [place]pense 1 lancet device. May give generic. Dx: E11.9 1 Each0 albuterol HFA (VENTOLIN HFA) 90 mcg/actuation inhaler inhale 2 puffs every 4 hours as needed for wheezing and shortness of breath 18 g 5 blood sugar diagnostic (BLOOD GLUCOSE TEST) test strip Test blood sugar(s) 6 to 7 times daily. Dx: Type 2 DM - Uncontrolled E11.65 Z79.4 Insulin: Yes 200 Strip 11 No current facility-administered medications for this visit. PAST SURGICAL HISTORY Procedure Laterality Date ARTHRS KNE SURG W/MENISCECTOMY MED/LAT W/SHVG 11/13/2014 Left knee arthroscopic medial meniscus repair COLPOSCOPY CERVIX UPPER/ADJACENT VAGINA 11/2007 Colposcopy [facility] SKN SUBQ T/M/F NECRO INFCTJ ABDL WALL 09/15/2016 Extensive debridement for necrotizing fasciitis-30 x 14 x 8 cm ESOPHAGOGASTRODUODENOSCOPY TRANSORAL DIAGNOSTIC 02/26/2008 EGD PAST SURGICAL HISTORY OF RFA lumbar, SI joint injections VAGINOSCOPY 07/15/2012 FAMILY HISTORY Problem Relation Age of Onset Hypertension Mother other (brain aneurysm) Mother 50 Hypertension Father Diabetes Father Heart Father Hypertension Maternal Grandmother Cancer Maternal Grandmother Throat, kidney, breast Heart Maternal Grandmother Mi X 3 Stroke Maternal Grandmother Hypertension Maternal Grandfather Diabetes Paternal Grandmother and High Cholesterol Stroke Paternal Grandmother Cataract Paternal Grandmother Cancer Paternal Grandmother Kidney, liver, lung other (High Cholesterol) Paternal Grandfather other (Kidney Failure) Paternal Grandfather Social History Tobacco Use Smoking status: Some Days Types: Cigars Smokeless tobacco: Never Tobacco comments: smokes cigars 4 per day Vaping Use Vaping Use: Never used Substance Use Topics Alcohol use: No Drug use: No Objective BP 144/84 Pulse 98 Temp 36.8 C (98.3 F) (Tympanic) Resp 18 Wt 89.3 kg (196 lb 12.8 oz) LMP 12/11/2022 SpO2 99% BMI 29.92 kg/m Physical Exam Vitals reviewed. Constitutional: Appearance: Normal appearance. HENT: Head: Normocephalic and atraumatic. Right Ear: Tympanic membrane, ear canal and external ear normal. Left Ear: Tympanic membrane, ear canal and external ear normal. Nose: Nose normal. Mouth/Throat: Mouth: Mucous membranes are moist. Pharynx: Oropharynx is clear. No oropharyngeal exudate or posterior oropharyngeal erythema. Musculoskeletal: Comments: Exam of the right forearm reveals mild swelling to the mid lateral forearm. Some tenderness on palpation. No tenderness of the wrist or elbow. Normal range of motion of these joints. Radialpulse 2+. Normal hand grasp strength. Exam of the tailbone reveals tenderness to the tailbone. No obvious swelling or redness. Skin: General: Skin is warm and dry. Neurological: Mental Status: She is alert. Assessment and Plan ASSESSMENT/PLAN: 1. Tailbone injury, initial encounter - ICD9: 959.19, ICD10: S39.92XA (primary diagnosis) X-ray of the tailbone shows possible linear lucency over the distal sacrum. This injury was 3 weeksago, I will have her follow-up with orthopedics for this as well. Patient was made aware of this prior to discharge as well. - XR SACRUM/COCCYX 3V AP/LAT 2. Closed fracture of right forearm, initial encounter - ICD9: 813.80, ICD10: S52.91XA X-rays show fracture of the mid ulna. Nondisplaced. I did place her in a sugar- tong splint and sling applied. We will have her follow-up with orthopedics. Will call tomorrow with appointment. Patientagreeable. - XR FOREARM GENERAL 2V AP/LAT RIGHT 3. Otalgia of left ear - ICD9: 388.70, ICD10: H92.02 Well exam. Likely eustachian tube dysfunction. Darwin Patel PA-C documented in this encounterPomerene Hospital07-28-2023 Miscellaneous Notes* Telephone Encounter - Ana Edwards APRN.[employer] - 03/02/2023 11:19 AM EDT Labs reviewed: 01/10/2023 (OSH) Sed WNL CMP clinically WNL Glucose 230 (H) AST 14 (L) Ca++ 8.4 (L) TSH WNL Iron + TIBC Iron 45 (L) Ferritin WNL 01/15/2023 (OSH) HIV WNL 01/16/2023 (OSH) SSA / SSB WNL MMA WNL Normetanephrines (plasma) WNL Metanephrines (plasma) WNL 02/04/2023 K/L abnormal [place] 25.9 (H) Lamda WNL K/L ratio 1.73 (H) Immunofixation WNL ACHR Ab Renin / aldosterone WNL Copper WNL B1 WNL 02/28/2023 Sed WNL CRP WNL 03/01/2023 ESTEPHANIE negative * Telephone Encounter - Kaleigh Torrez - 03/02/2023 10:34 AM EDT Received outside lab results from [facility]. In scanned documents for review. * Telephone Encounter - Kaleigh Torrez - 01/18/2023 11:01 AM EDT Received outside lab results from [facility]. In scanned documents for review. documented in this encounterPomerene Hospital07-27-2023 Miscellaneous Notes* Telephone Encounter - Lina Baeza OCCA - 03/01/2023 7:32 AM EDT Last office visit 06-19-22 No Future appt documented in this encounterPomerene Hospital07-26-2023 Miscellaneous Notes* Telephone Encounter - Juana Castrejon - 02/28/2023 8:58 AM EDT Patient has no showed three [facility] appointments and canceled one. If the patient calls to reschedule for another appointment have them call [phone] and ask for therapy to schedulethe appointment. documented in this encounterPomerene Hospital07-14-2023 Miscellaneous Notes* Telephone Encounter - Olivia Spence RN - 02/16/2023 9:07 AM EDT Patient asking if there is anything that can help sexual dryness or if she has to rely on lubricants. She was not sure who to message about this but she is concerned about how this is effecting her relationship. Hafsa Spence RN, BSN documented in this encounterPomerene Hospital06-14-2023 Miscellaneous Notes* Telephone Encounter - Lorna Cheng MA - 01/17/2023 3:13 PM EDT I spoke with someone at Dr.Tony Matthews's office at [facility] at [phone]. I called on the patient's behalf to try and get medications for the patient b/c she wouldn't be ableto see a provider in our department until 03/28. I spoke with Annamaria at the office. Annamaria would send a message to the provider to see if medications could be ordered until she is able to see someone at [facility] 03/28. Annamaria informed me that the patient has been noncompliant with them for her appointments. Annamaria also said that the pt has a scheduled appointment with [employer] APPRENTICE Eric Morales 01/30/23 at 1:30pm in Internal Med. Lorna Cheng Activity Director II Endocrinology & Metabolism Ragan F20-X * Telephone Encounter - Lorna Cheng MA - 01/17/2023 12:15 PM EDT Pt called frustrated about her Chandrakant sensors and she has ran out. Pt is concerned about her blood sugar readings. Pt previous provider Rogelio Matthews at [facility] [phone]. I did not receive a rep. I did transfer the patient to the scheduling department. Lorna Cheng Activity Director II Endocrinology & Metabolism Ragan F20-X documented in this encounterPomerene Hospital06-08-2023 NoteMag[facility]06-08-[facility]23 History of Present illness Narrative* Nelly Burns APRN.SUPER[employer]OR [employer]YING [employer]ING - 01/11/2023 7:58 PM EDT This note was created using NoteWriter. Subjective Kathleen Mcdaniel is a 37 year 39 year old female with PMH fibro, DM, HTN, hyperlipidemia presents for thumb complaints. 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 The history is provided by the patient. No top stop attacher was used. 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 11/23/2014 MRSA (methicillin resistant staph aureus) culture positive chronic, legs, groins, armpit Obesity 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 Oligomenorrhea 10/27/2009 Other and unspecified hyperlipidemia 08/29/2005 Papanicolaou smear of cervix with atypical squamous cells of undetermined significance (ASC-US) 2007 Papanicolaou smear of cervix with low grade squamous intraepithelial lesion (LGSIL) PCOS (polycystic ovarian syndrome) Schizophrenia ([facility]) 04/21/2010 [facility] Unspecified essential hypertension 08/29/2005 PAST SURGICAL HISTORY Procedure Laterality Date ARTHRS KNE SURG W/MENISCECTOMY MED/LAT W/SHVG 11/13/2014 Left knee arthroscopic medial meniscus repair COLPOSCOPY CERVIX UPPER/ADJACENT VAGINA 11/2007 Colposcopy DBRDMT SKN SUBQ T/M/F NECRO INFCTJ ABDL WALL 09/15/2016 Extensive debridement for necrotizing fasciitis-30 x 14 x 8 cm ESOPHAGOGASTRODUODENOSCOPY TRANSORAL DIAGNOSTIC 02/26/2008 EGD PAST SURGICAL HISTORY OF RFA lumbar, SI joint injections VAGINOSCOPY 07/15/2012 ALLERGIES Amoxicillin, Cephalexin, Doxycycline, Asenapine Maleate, and Saphris [Asenapine] MEDICATIONS pyridostigmine (MESTINON) 60 mg tablet Take 1 tablet by mouth three times daily. gabapentin (NEURONTIN) 600 mg tablet Take 2 tablets by mouth twice daily for 180 days. Alpha Lipoic Acid 200 mg tab Take by mouth three times daily. Biotin 800 mcg tab Take 1 tablet by mouth once daily. losartan (COZAAR) 25 mg tablet Take 1 tablet by mouth once daily. topiramate (TOPAMAX) 100 mg tablet Take 1 tablet by mouth twice daily. albuterol HFA (VENTOLIN HFA) 90 mcg/actuation inhaler inhale 2 puffs every 4 hours as needed for wheezing and shortness of breath insulin degludec (TRESIBA FLEXTOUCH U-100) 100 unit/mL (3 mL) injection pen Inject 70 Units subcutaneously every morning. omeprazole (PRILOSEC) 40 mg capsule Take 1 capsule by mouth once daily. Lancets lancets Test blood sugar(s) 6 to 7 times daily. Dx: Type 2 DM - Uncontrolled E11.65 Insulin: Yes insulin needles, DISPOSABLE, (PEN NEEDLE) 31 gauge x 5/16 Use one needle per dose. 6x per day. Increased amount. On sliding scale + 5 injections per day metFORMIN ER (GLUCOPHAGE XR) 500 mg 24 hr tablet Take 2 tablets by mouth twice daily before meals. loratadine (CLARITIN) 10 mg tablet Take 1 tablet by mouth once daily. For post nasal drip blood sugar diagnostic (BLOOD GLUCOSE TEST) test strip Test blood sugar(s) 6 to 7 times daily. Dx: Type 2 DM - Uncontrolled E11.65 Z79.4 Insulin: Yes Lancing Device (BD LANCET DEVICE) [facility] [place]pense 1 lancet device. May give generic. Dx: E11.9 insulin lispro (HUMALOG KWIKPEN) 100 unit/mL Inject 20 Units subcutaneously twice daily before meals. or by sliding scale based on mealtime blood sugar (Patient not taking: Reported on 12/29/2022) FAMILY HISTORY Problem Relation Age of Onset Hypertension Mother other (brain aneurysm) Mother 50 Hypertension Father Diabetes Father Heart Father Hypertension Maternal Grandmother Cancer Maternal Grandmother Throat, kidney, breast Heart Maternal Grandmother Mi X 3 Stroke Maternal Grandmother Hypertension Maternal Grandfather Diabetes Paternal Grandmother and High Cholesterol Stroke Paternal Grandmother Cataract Paternal Grandmother Cancer Paternal Grandmother Kidney, liver, lung other (High Cholesterol) Paternal Grandfather other (Kidney Failure) Paternal Grandfather Social History Tobacco Use Smoking status: Some Days Types: Cigars Smokeless tobacco: Never Tobacco comments: smokes cigars 4 per day Vaping Use Vaping Use: Never used Substance Use Topics Alcohol use: No Drug use: No Review of Systems Respiratory: Negative for apnea, cough, choking and chest tightness. Cardiovascular: Negative for chest pain, palpitations and leg swelling. Gastrointestinal: Negative for abdominal pain, diarrhea, nausea and vomiting. Musculoskeletal: Negative for arthralgias, back pain and gait problem. Skin: Positive for wound. Negative for color change and pallor. Allergic/Immunologic: Positive for immunocompromised state. Negative for environmental allergies and food allergies. Hematological: Negative for adenopathy. Does not bruise/bleed easily. Psychiatric/Behavioral: Negative for agitation and behavioral problems. Objective BP 148/86 Pulse 88 Temp 36.6 C (97.9 F) (Tympanic) Resp 18 Wt 86.7 kg (191 lb 3.2 oz) LMP12/11/2022 BMI 29.07 kg/m Physical Exam Vitals and nursing note reviewed. Constitutional: General: She is not in acute distress. Appearance: Normal appearance. She is normal weight. She is not ill-appearing, toxic-appearing or diaphoretic. HENT: Head: Normocephalic and atraumatic. Right Ear: Ear canal and external ear normal. Left Ear: Ear canal and external ear normal. Nose: Nose normal. No congestion or rhinorrhea. Mouth/Throat: Mouth: Mucous membranes are moist. Pharynx: No oropharyngeal exudate or posterior oropharyngeal erythema. Eyes: General: Right eye: No discharge. Left eye: No discharge. Extraocular Movements: Extraocular movements intact. Conjunctiva/sclera: Conjunctivae normal. Pupils: Pupils are equal, round, and reactive to light. Cardiovascular: Rate and Rhythm: Normal rate and regular rhythm. Pulses: Normal pulses. Heart sounds: Normal heart sounds. No murmur heard. No friction rub. Pulmonary: Effort: Pulmonary effort is normal. No respiratory distress. Breath sounds: Normal breath sounds. No stridor. No wheezing, rhonchi or rales. Chest: Chest wall: No tenderness. Abdominal: General: Abdomen is flat. There is no distension. Palpations: Abdomen is soft. There is no mass. Tenderness: There is no abdominal tenderness. There is no right CVA tenderness, left CVA tenderness, guarding or rebound. Hernia: No hernia is present. Musculoskeletal: General: No swelling, tenderness, deformity or signs of injury. Normal range of motion. Cervical back: Normal range of motion and neck supple. No rigidity. Right lower leg: No edema. Left lower leg: No edema. Lymphadenopathy: Cervical: No cervical adenopathy. Skin: General: Skin is warm and dry. Capillary Refill: Capillary refill takes less than 2 seconds. Coloration: Skin is not jaundiced or pale. Findings: No bruising, erythema, lesion or rash. Comments: Right thumb with large fissure like wound. Chronic in nature No bleeding. Neurological: General: No focal deficit present. Mental Status: She is alert and oriented to person, place, and time. Cranial Nerves: No cranial nerve deficit. Sensory: No sensory deficit. Motor: No weakness. Coordination: Coordination normal. Gait: Gait normal. Psychiatric: Mood and Affect: Mood normal. Behavior: Behavior normal. Thought Content: Thought content normal. Judgment: Judgment normal. Assessment and Plan ASSESSMENT/PLAN: 1. Open wound of right thumb, initial encounter - ICD9: 883.0, ICD10: S61.001A +fissure like wound X 2 months Have provided steri strip closures Padded Have encouraged skin care Follow up with PCP Nelly Burns APRN.SUPERVISOR [employer]YING [employer] WINDING documented in this encounterPomerene Hospital05-26-2023 NoteMag[facility]05-25-2023 NoteMag[facility]05-12-2023 Miscellaneous Notes * Telephone Encounter - Olivia Spence RN - 12/15/2022 10:57 AM EDT Message sent to patient to schedule speech therapy consult to have swallow evaluated. Instructed her that if they feel testing is needed they can order it. Hafsa Spence RN * Telephone Encounter - Kaleigh Torrez - 12/14/2022 4:37 PM EDT Order being requested: swallow evaluation Patient of Ana Edwards CNP documented in this encounterPomerene Hospital05-11-2023 NoteMagr[facility]05-11-2023 Miscellaneous Notes* Addendum Note - Ana Edwards APRN.CNP - 12/14/2022 10:05 AM EDTAddended by: ANA EDWARDS on: 12/14/2022 10:05 AM Modules accepted: Orders documented in this encounterPomerene Hospital05-11-2023 Instructions* Patient Instructions* Ana Edwards APRN.CNP - 12/14/2022 9:30 AM EDT PLAN 1) Labs (fasting) 2) Speech swallow evaluation 3) SMA 4) Follow up with your eye doctor for diabetic eye exam 5) Follow up with PCP for glucose monitor 6) Pyridostigmine 60 mg 3x daily Pyridostigmine/mestinon 60 mg is used for POTS well by increasing nerve impulses. Will send to yourpharmacy. Follow these instructions below: Take with food. Week 1 and 2: One pill mestinon at bedtime. Week 3 and 4 : One pill after breakfast and one at bedtime. Week 5 and onward : (If not better) One pill after breakfast, one mid afternoon, and one at bedtime. If the medication is helping you should notice less fatigue, dizziness, and better stamina. We start low to avoid side effects of nausea and diarrhea. Keep monitoring your blood pressure. Like all medications, there is some risk of allergic reaction. Can have additive effect with antiglaucoma drugs may cause or exacerbate problems with night vision. Conservative Measures: Make all postural changes from lying to sitting or sitting to standing slowly. Drink to 2.0 -2.5 L of fluids per day. With bad symptoms, drink 500 cc of water quickly. This will result in an increased blood pressure within 5 minutes of drinking the water. The effect will last up to one hour and may improve orthostatic intolerance. Increase sodium in the diet to 3 - 5 g per day. If not helpful and BP is stable, may try 5-7 g per day. IF BLOOD PRESSURE RISES OR IS RISING CUT BACK ON SALT LOADING. Liquid IV, Nuun tabs, powerade / gatorade (zero formulations are OK), pedialyte, LMNT, Drip drop, Body Armor are all OK. Avoid large meals which can cause low blood pressure during digestion. It is better to eat smaller meals more often than three large meals. Avoid alcohol. Alcohol and cause blood to pool in the legs which may worsen low blood pressure reactions when standing. Avoid excessive caffeine intake as it may increase urine production and reduce blood volume. Perform lower extremity exercises to improve strength of the leg muscles. This will help prevent blood from a pooling in the legs when standing and walking. Preferred exercises are walking, squattingor stationery bicycling. An increased exercise duration by weekly should be considered. Use custom fitted elastic support stockings. These will reduce a tendency for blood to pool in the legs when standing and may improve orthostatic intolerance. Please try 30-40 mmHg compression. Raise the head of the bed by 6 to 10 inches. The entire bed must be at an angle. Raising only the head portion of the bed at waist level or using pillows will not be effective. Raising the head of the bed will reduce urine formation overnight and there will be more volume in the circulation in the morning. Use physical counter maneuvers such as leg crossing, or leg raising and resting the leg on a chair.These maneuvers increase blood pressure and can improve orthostatic intolerance quickly and transiently. The following is information regarding autonomic disorders (such as orthostatic intolerance): What is POTS? POTS is an orthostatic intolerance, with hallmark symptoms of postural lightheadedness and rapid heart rate. POTS is diagnosed by observation of an excessive rise in heart rate in response to position changes (progression for lying or sitting to standing position) and also features a stable or elevated blood pressure from baseline. POTS is defined as a symptomatic and sustained heart rate increase by an increment of 30 bpm or more in the absence of orthostatic hypotension. POTS is not one disorder but rather a syndrome resulting from one or multiple distinct pathophysiologic mechanisms that are not mutually exclusive. The main POTS mechanistic causes include: 1. Physical deconditioning 2. Volume dysregulation/dehydration 3. Hypervigilance/Anxiety 4. Impaired sympathetically mediated vasoconstriction in the lower limbs (neuropathic) 5. Excessive cardiac sympathetic excitatory responses (hyperadrenergic) 6. Connective tissue laxity which contributes transitory, relatively reduced cerebral perfusion from gravitational blood diversion to lower extremities with venous pooling Next Steps Once the below plan is complete, we will discuss next steps for a provider follow-up. Please call to arrange for following appointments mentioned below: 1. Please read our POTS Manual online. This will help you understand your POTS diagnosis, work withyour medical team, and includes detailed instructions and tips for improved daily living with POTS - [email or web address] 2. Visit our Youtube Channel YADIRA ORTHOSTATIC EXERCISE. Videos on hydration, fatigue, neck, pump (leg counter maneuvers), breathing, affirmation, gratitude, exercise questions, walking, and standing will help greatly - [email or web address] 3. It is imperative that you attend Shared Medical Appointments via Zoom. These are group medical appointments where you will learn more about your diagnosis. Each SMA includes education about autonomic issues and addresses individual medical problems. You can call to schedule - P00 [phone] 4. Also, included in your plan of care is the Exercise Shared Medical Appointment. This appointmentis a one-time appointment held via zoom on Sunday from 3-4:30pm. There is no exercise in the actualSMA session, but it is educational with a question and answer session. We will review each person's chart and provide an individualized template of exercise and body movement goals focused and tailored to individual ability. Orthostatic Dysfunction--Daily Living Tips Living with a disorder of the autonomic nervous system is life altering. Making lifestyle changes in order to thrive in their day to day and long-term is essential. Orthostatic disorder occurs when the upright positioning of the body causes variable blood pressurechanges that induce symptoms. Your body has a network of blood vessels made up of arteries, veins, and capillaries. The heart pumps blood into the arteries, which carry the blood throughout the body. Blood pressure is the pressure or force of blood pushing against the arita of the arteries. Blood pressure is written as two numbers--Systolic (top number) and Diastolic (bottom number) for example a normal blood pressure would be read as 120/80. The first number, systolic pressure is the pressure in the arteries when the heart beats and fills them with blood. The second number, diastolicpressure is the pressure in the arteries when the heart rests between beats. Self Management: The primary objective is to improve functional capacity, I. E. increase tolerance for standing, perform daily activities, and exercise. Daily self care practices are the pillars of POTS care. The following is recommended: 1. Exercise training: Endurance training for at least 30 minutes on the majority of days per week. Non-upright exercise such as recumbent biking or rowing are better tolerated initially. Resistance training should be performed 2-3 days/week targeting the lower limbs and core with more repetitions at lower weight. 2. Fluid and salt intake: Advised to drink about 2-3 liters of water per day. In patients with no heart or kidney disease, dietary sodium advised to be at least 2 g and often is much as 8 g/day. IV FLUIDS: We generally do not support the chronic use of IV fluids for orthostatic patients. 3. Physical counter maneuvers: Activities including crossing the legs, bending forward at the waist, rising on toes, slow marching in place, and squatting as a way to produce a small increase in meanarterial pressure to augment cerebral blood flow to prevent syncope. See a demonstration here - [email or web address]/[email or web address]?la=en#:~:text=Cushion Filler%20one%20han d%20with%20the,or%20 until%20your%20symptoms%20disappear.&text=Cross%20one%20leg%20over%20the,or%20un til%20your%20symptoms%20disappear. 4. Proper nutrition and pursuit to attain and maintain a healthy physical condition. Avoid alcohol and tobacco. Eat small meals. Select foods which enrich the body. 5. Compression garments to cover the abdomen and thighs. Abdominal binder or thigh-high/waist high compression stockings at 30 mmHg - 40 mmHg compression are most effective, albeit not always well tolerated. Compression shorts or knee high stockings, although less effective, are an alternative. 6. Medication management: Medications should be considered for treatment of OH only after nonpharmacological strategies have been optimized and practiced consistently. 7. Sleep is often vastly undervalued. One of the best ways to support your health is to maintain a regular sleep/wake cycle. Keep a routine bedtime and wake-up time. Strive for 8+ hours of sleep per night. 8. Purchase a blood pressure cuff to monitor blood pressure and pulse. Take your vitals per guidance of your provider. Also, when feeling unwell check your vitals and keep a log. This is so providersmay review in the future. Exercising with an Orthostatic Disorder: We recognize exercising often feels overwhelming and challenging when you are dealing with orthostatic symtpoms. However, exercising an important step to strengthening your body and improving symptoms in the long run. We created these exercise recommendations to help with returning you to exercising. Many patients need to start with level 1 exercises and progress from there. Part of the daily care involves moving the body. Exercise does help orthostatic patients live better lives. Though it seems challenging, it helps control symptoms and often improve them. Those with this disorder can become physically deconditioned quickly as a result of long periods ofactivity. The type of exercise and level of difficulty as well as time spent vary from person to person and should be determined by your clinician. Even starting for five to ten minutes per day and working your way up will make an impact. [place] is consistency and frequency. Have a support person or jaimee present when beginning for safety and guidance. Start slow and reevaluate in a week and then a month. Here are some general tips that are helpful if done daily. Perform lower extremity exercises to improve strength of the leg muscles. This will help prevent blood from pooling in the legs when standing and walking. Preferred exercises are walking, squatting, foot peddle bike, and use of a stationary bicycle. If indicated, physical therapy locally for more muscle strength and to maintain gait/balance. Visit our Youtube Channel YADIRA ORTHOSTATIC EXERCISE. Videos on hydration, fatigue, neck, pump (leg counter maneuvers), breathing, affirmation, gratitude, exercise questions, walking, and standing will help greatly - [email or web address] The following is a step-romero home exercise program you can follow: Level 1 - Reclined Gentle Movements This is the starting point for those patients most severely disabled by physical deconditioning or autonomic disorder. If you are bedridden, this is your first step. We have known patients who were bedridden for years, and we able to work their way from barely able to move to biking 45 minutes a day, everyday. It will be hard. It may make you feel worse in the beginning. But the human body was meant to move. Just take baby steps until you can make it to your goal. Some patients can only do one minute a day, or one minute at a time, a few times a day. And they do this every day for a week, and then they increase to two minutes a day the next week. This is a very slow process, but improvingyour health slowly is better than not improving it at all. Helpful exercises may include: Leg Pillow Squeeze - while laying down or reclined in bed, put a pillow folded between your knees and squeeze. Hold it for 10 seconds. Repeat. Arm Pillow Squeeze - put the pillow folded between your palms and squeeze together as though you were putting your hands into a praying position. Hold it for 10 seconds. Repeat. Alphabet Toes - while laying in bed, write your name in the air with your toes. If you can build upyour strength, write the whole alphabet. Do this several times a day. Side Leg Lifts - while laying on your side, lift your leg up sideways and then bring your leg back down, without touching your legs together. Repeat. Front Leg Lifts - While laying on your back, life your left leg up, pointing your toe towards the ceiling. Repeat. Switch to right leg. Gentle Stretching - any kind of stretching helps move blood around in the body and takes stress of your joints if you have been sitting or laying in the same position for a long time. Go through the entire body doing mild stretches, from feet, to legs, to back, to arms, to neck. Doing this when youwake up can be a great way to start the day, and repeating your stretches before bed can help you relax and sleep better. Level 2 - Recumbent Cardio Exercises This is probably the level that most patients will be able to begin with, although everyone can benefit from the gentle stretching and toning exercises described in Level 1. Always begin your workout with 5-10 minutes of stretching and/or yoga to warm up your muscles and protect your joints from injury. Since the point of these exercises is to get your cardiovascular system to be more efficient, you will want to set a target heart rate for your workout. You should speak to your doctor about this because medications and other medical conditions can impact your target heart rate, but most patients can tolerate a workout at 75% to 80% of their maximum heart rate. [facility] has a Target Heart RateCalculator you can use as a guide when speaking with your doctor. You may want to purchase an exercise heart rate monitor to wear during your workouts to help you keep your heart rate within your target zone. We do not endorse any specific products, but exercise heart rate monitors with chest straps are usually more accurate than pulse oximeters you place on yourfinger. This is especially so for dysautonomia patients who have abnormalities in peripheral blood flow (common in some forms of dysautonomia), as this is more likely to give an inaccurate reading using a finger based monitor. Suggested reclined cardiovascular exercises include: Rowing - use a rowing machine, or if you are feeling well enough, a kayak. You may want to start out slow, maybe 2-5 minutes a day. At your own pace, adding a few minutes per week, try to work your way up to 45 minutes per day, 5 days a week, with 30 minutes of your routine done in your target heart rate zone. Be sure to warm up at the beginning and cool down at the end. Recumbent Biking - recumbent exercise bikes are different than regular exercise bikes. They seat the rider in a reclined position, rather than upright. Try recumbent biking a few minutes a day, adding a few minutes each week, until you can work out 45 minutes a day, five days a week, with 30 minutes of that workout in your target heart rate zone. Be sure to warm up at the beginning and cool down at the end of each workout. Swimming - The pressure from water helps prevent orthostatic symptoms. Dysautonomia patients who have been bedridden for years may be able to stand upright for an hour in a pool, because the pressurefrom the water prevents orthostatic symptoms from occurring, or lessens their impact. Dysautonomia p atients can take advantage of this to get a good cardio workout, or to focus on stretching and strength training in the water. Always swim with a solaris administrator or a jaimee who can keep and eye on you, just in case you develop lightheadedness or other symptoms that would make it unsafe to be in a pool. It may be best to start your swimming exercise program at a pool with a sprinkler irrigation equipment mechanic, or with a Physical Therapist who specializes in aquatic therapy. A good old fashioned kick board can be a great tool fordysautonomia patients. You can kick your way around the pool, which gives you a good cardio workout, and all that kicking helps strengthen your legs. Toning up your legs and core is a great way to min imize orthostatic symptoms. Weight Training - Most dysautonomia patients can benefit from overall increase in tone and strength. The stronger our muscles are, the more efficiently they use oxygen, the better we will be able to tolerate orthostatic stress. Special emphasis can be placed on strengthening leg and core muscles. Some patients find it useful to wear 2 to 4 lb. weights that attach to the ankles with velcro. This can really help with leg strength if you wear them often enough. There are also machines at the gym that assist with core and leg weight training. Begin with light weights, and use them in a reclined or seated position. Some patients become extra symptomatic when lifting their arms over their head, so take extra care if attempting to do that. Level 3 - Normal Workouts Some dysautonomia patients are able to jog, run marathons or walk several miles a week. These patients should do whatever they can to continue these activities. Dysautonomia patients who are well-conditioned should exercise 45 minutes a day, at least 3 days per week. Special emphasis should be placed on leg and core strength, and cardiovascular exercises Other Issues Related to Orthostatic Disorders Leg Swelling: This can occur from the blood pooling from the orthostatic issues. The legs may even turn blue, red, and pale. Some may have even livedo reticularis. Treating the orthostatic disorder will help. Compression stockings knee high, thigh high, and even panty hose can help. Pressure grade 20-30 or higher can be tried to see what helps and is comfortable. Wear them for a few hours in the day, while walking, and mild activity. They are not recommended to wear during sleep. Elevate legs up above the heart repeatedly during the day to reduce swelling. Sleep: Sleep can be a challenge due to aspects of typical chronic health issues of inconsistent sleep schedule, inactivity, medication effects and even mental health aspects of chronic disease (worriment, rumination of the future, uncertainty). Melatonin 3-10 mg to take 2 hours before sleep can help. Review in your next routine medical appointment if this is an option for you. We try to avoid typical sedatives if possible as they can potentiate orthostatic issues. Many orthostatic patients have nocturnal symptoms especially due to lack of body movement and reduced circulation of the blood. POTS patients due to the adrenergic response can have more supine chestpain, racing heart rate, restless sleep, nightmares, sweating, and awakenings. Go to bed and wake up at the same time daily including weekends. Do not nap more than 30 minutes during the day. *Before getting into bed: Establish a regular routine for bedtime. Create a positive sleep environment. Relax. Avoid alcohol, smoking and caffeine for at least a few hours before bedtime. Do not go to bed unless you are sleepy. *While in bed: Turn your clock around (or cover it) and use your alarm if needed. If you can t fall asleep in 20 minutes (based on your internal sense of time), get out of bed and do something relaxing (reading, listening to music, etc.). Return to bed only when sleepy. Use your bed only for sleep and intimacy. *During the daytime: Wake up at the same time, even on weekends. Avoid naps. Avoid caffeinated beverages and heavy meals as bedtime approaches. Exercise regularly, but not within four hours of bedtime. [email or web address].[email or web address]/-/scassets/[email or web address]/[email or web address] [email or web address]-[email or web address]-phlfz-[email or web address]-[email or web address].pdf?[email or web address] Pain: Many patients may have pain from orthostatic issues Inactivity causes joint stiffness. Exercise and gentle range of movement of the joints will often relive stiffness. Headaches and neck pain from hypo perfusion (an orthostatic headache and coat back hanger syndrome lay down and goes away.) Treating the orthostatic syndrome may help, but some may still have pain. Gut Issues Many autonomic patients have associated GI complaints of bloating, reflux, diarrhea, constipation and IBS. If you notice any food that trigger discomfort, be mindful. Maintaining hydration helps orthostatic self-care and GI health also. Some of the purchased electrolyte drinks may cause GI symptoms. Find which one works for you or make your own hydration drink following the WHO recipe found earlier in this document. Supplements of magnesium oxide 400 mg twice or three times per day can help with constipation. Please check with your provider before starting any new supplements. Bladder Complaints This can be a common complaint for autonomic patients. Due to inactivity many patients will develop some pelvic floor dysfunction and thus benefit from pelvic floor exercises throughout the day to strengthen these muscles. Sometimes the symptoms are challenging to decipher objectively and will need a Urology consult to address. Dry Eyes and Mouth Often the patient may have dry eyes and mouth symptoms. Eye exam by an roto rooter operator to evaluate diagnostically for dry eyes and if needed over the counter or prescription treatments. Dry mouth can be common from routine medications. With dry mouth please see your dentist for best plan of oral hygiene and care. Mental Health Most patients with this disease from the impact and struggle of daily life will go through various emotions. We encourage patients and their support person to pursue counseling for skills to live with chronicdisease. In depression and anxiety medications like SSRI s and SNRI s may help with less impact on orthostatic. These medications may be prescribed by medical providers in follow-up visits if indicated. Additional information: Our Team: Our team is comprised of neurologists, advanced practice providers, nurses, medical assistants, administrators administrative assistants, and patient service specialists. The nursing staff are a major part of our treatment team and will be handling your phone calls and inquiries, if any. Unless explicitly told otherwise at the time of your office visit, your study results and ensuing treatment plans will be released via [employer] and discussed via [employer] or during your follow-up appointment. [employer]: Please ask the schedulers to give you an activation code. The main way of communication isby [employer] rather than phone lines, so if you have not signed up, please do so. [employer] is also theway that you can review your labs and testing. We are not able to contact everyone to tell them results are normal. If you have any questions about the results, you are free to message us. [employer] ismeant for simple questions regarding medications, possible side effects, or other simple straight forward questions in limited sentences, rather than multiple paragraphs of discussion. [facility] [employer] is notmeant for, or efficient for these complex questions, extensive questions, extensive medication adjustments, complex new symptoms or concerns. As a national referral center for syncope, autonomic dysfunction, general neurology, headache care,neuromuscular disease, and other related conditions, we do not have the resource of time or staffing to address inquiries for accommodations. As such, we do not provide or complete requests for work a ccommodations, FMLA, disability, or other such forms. We recommend seeking guidance through your primary care provider for these requests. We are happy to provide our office notes from your visits and other tests or evaluations performed through our clinic, which can be made available upon request to assist you with this process. Social Media: Social Media can be a great resource and a way to connect with people who share your diagnosis. However, it is important to be mindful of the content posted. Everyone has a different journey. Be sure your information comes from a reliable source and do not take medical advice from social media--always contact your clinicians to review relevant information specific to your condition and follow your own medical plan of care. Ana Colon APRN.FEI [facility] History of Present illness Narrative* Ana Edwards APRN.CNP - 12/14/2022 9:00 AM EDT Images from the original note were not included. [facility] New Patient Evaluation Chief Complaint/Issues: Kathleen Mcdaniel is a 37 year old right-handed female seen in the [facility] for: New patient Autonomic dysfunction HPI: Established patient of Dr. Cary, seen 07/13/2022 via virtual visit for initial evaluation: ...presenting for evaluation of dysautonomia (including features of orthostatic intolerance, labilehypertension/BPs, in addition to gastroparesis, alternating chronic constipation & diarrhea, excessively dry mucous membranes, intermittent bladder leakage, cold> heat intolerance); 06/2022 ANS with tilt table testing notable for mild cardiovagal dysfunction, no OH, no OT. The clinical picture is most consistent with diabetes-related autonomic neuropathy (further work-up with [facility] unlikely to change impression)... - Will pursue the following additional autonomic w/u studies including those for other secondary/potentially treatable underlying conditions, and mimics:... For potential symptomatic and peripheral neuroprotective benefits, (and to minimize multi-meds risks) recommend starting Alpha-lipoic acid- 300 mg by mouth twice daily ( natural supplement to be obtained from a nutraceutical/[employer] store or [id number] at major pharmacies) Following with nephrology for assistance in Labile BP management. Seen by Dr. Pabon, 10/05/2022: Many factors contributing to BP lability. With almost 20 years of uncontrolled DM, per Neuro, and as seen in orthostatic BP change there is a large component of DM dysautonomia. Adherence is an issueat this time but she had labile BP even when taking the medication consistently. Highly suspect KEENA. Also has tobacco use disorder, counseled but in pre-contemplative phase. Will assess for any secondary factors that could be contributing to this uncontrolled labile HTN given WADSWORTH and Fhx. NSAIDs could contribute to BP as well. Plan... - LOSARTAN 25 MG TABLET--to be taken at night... Today we discuss her symptoms: She reports for years, my body just does what it wants . She has had necrotizing fasciitis two times. She has struggles with labile blood glucose for a long time. She reports sometimes in the past taking her insulin would make her drop very low after taking her insulin. She reports 5 units can make her drop significantly. She can rise very high from snacks like milk. She has burning and pain in the extremities from her neuropathy. She has more issues with her vision, especially with transitioning from dark to light. She does not have a monitor right now and does not have a insulin monitor. She has trouble with her bowels, has vacillating diarrhea and constipation. She often feels nauseated after eating. She cannot eat well due to feeling constipated, often only goes to the bathroom every other week. She sometimes vomits after eating. She is scheduled to see GI in [place]. She struggles with temperature dysregulation. She struggles with sweating a lot. She gets lightheaded on standing. She has exertional intolerance. She reports she has had issues with low blood pressure in the past, but recently runs very high. She struggles with random body pains. 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/2014 MRSA (methicillin resistant staph aureus) culture positive chronic, legs, groins, armpit Obesity 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 Oligomenorrhea 10/27/2009 Other and unspecified hyperlipidemia 08/29/2005 Papanicolaou smear of cervix with atypical squamous cells of undetermined significance (ASC-US) 2007 Papanicolaou smear of cervix with low grade squamous intraepithelial lesion (LGSIL) PCOS (polycystic ovarian syndrome) Schizophrenia ([facility]) 04/21/2010 [facility] Unspecified essential hypertension 08/29/2005 PAST SURGICAL HISTORY Procedure Laterality Date ARTHRS KNE SURG W/MENISCECTOMY MED/LAT W/SHVG 11/13/2014 Left knee arthroscopic medial meniscus repair COLPOSCOPY CERVIX UPPER/ADJACENT VAGINA 11/2007 Colposcopy DBRDMT SKN SUBQ T/M/F NECRO INFCTJ ABDL WALL 09/15/2016 Extensive debridement for necrotizing fasciitis-30 x 14 x 8 cm ESOPHAGOGASTRODUODENOSCOPY TRANSORAL DIAGNOSTIC 02/26/2008 EGD PAST SURGICAL HISTORY OF RFA lumbar, SI joint injections VAGINOSCOPY 07/15/2012 ALLERGIES Allergen Reactions Amoxicillin Itching, Unknown, Hives, Rash, Other: See Comments Cephalexin GI Upset, Other: See Comments Doxycycline Rash, Other: See Comments Asenapine Maleate Unknown, Other: See Comments Saphris [Asenapine] Mental Status Change Social History Tobacco Use Smoking status: Some Days Types: Cigars Smokeless tobacco: Never Tobacco comments: smokes cigars 4 per day Vaping Use Vaping Use: Never used Substance Use Topics Alcohol use: No Drug use: No FAMILY HISTORY Problem Relation Age of Onset Hypertension Mother other (brain aneurysm) Mother 50 Hypertension Father Diabetes Father Heart Father Hypertension Maternal Grandmother Cancer Maternal Grandmother Throat, kidney, breast Heart Maternal Grandmother Mi X 3 Stroke Maternal Grandmother Hypertension Maternal Grandfather Diabetes Paternal Grandmother and High Cholesterol Stroke Paternal Grandmother Cataract Paternal Grandmother Cancer Paternal Grandmother Kidney, liver, lung other (High Cholesterol) Paternal Grandfather other (Kidney Failure) Paternal Grandfather ROS Review of Systems See below. Autonomic Screening Do you become dizzy or lightheaded with standing? yes Do you notice your heart racing (tachycardia) with postural change? yes sometimes Do you have syncope? no In the past month, did you have any falls? no How long can you stand (in minutes) before becoming symptomatic? yes instantly Are symptoms worse after consuming a meal? no Are symptoms alleviated by sitting/laying down? yes Autonomic check list: YES (Y) or NO (N) Dry mouth: yes Dry eyes: yes Change in sweat: yes Constipation: yes Abdominal Bloating with shortly after eating: yes Fluctuation of diarrhea and constipation: yes Urination: yes trouble emptying fully; chronic UTI Change in taste: no Challenge swallowing foods: yes has to re-swallow sometimes Skin changes of blue or redness to distal limbs: yes feels like her L arm changes color at times Fainting /near syncope/syncope: no Dizziness: no Light headiness: yes Chest pain: no Challenge in breathing: yes Tachycardia: yes Temperature Regulation: yes Bright lights: yes Numbness / tingling: yes Current management of orthostatic condition Diet: Eats small meals, eating low carbs Exercise: Walking Water: drinks close to a gallon per day; gets heart burn even from water Salt: not adding or limiting Stockings: No Elevated HOB: Flat Alcohol intake: No; some heavy drinking years ago, [id number] drinking vodka and beer Medications Current Outpatient Medications on File Prior to Visit Medication Sig Alpha Lipoic Acid 200 mg tab Take by mouth three times daily. Biotin 800 mcg tab Take 1 tablet by mouth once daily. losartan (COZAAR) 25 mg tablet Take 1 tablet by mouth once daily. topiramate (TOPAMAX) 100 mg tablet Take 1 tablet by mouth twice daily. gabapentin (NEURONTIN) 600 mg tablet Take 2 tablets by mouth twice daily for 180 days. insulin lispro (HUMALOG KWIKPEN) 100 unit/mL Inject 20 Units subcutaneously twice daily before meals. or by sliding scale based on mealtime blood sugar albuterol HFA (VENTOLIN HFA) 90 mcg/actuation inhaler inhale 2 puffs every 4 hours as needed for wheezing and shortness of breath dulaglutide (TRULICITY) 4.5 mg/0.5 mL pen injector Inject 4.5 mg subcutaneously one time a week. (Patient taking differently: Inject subcutaneously one time a week. They decreased her dose to 3mg) insulin degludec (TRESIBA FLEXTOUCH U-100) 100 unit/mL (3 mL) injection pen Inject 70 Units subcutaneously every morning. omeprazole (PRILOSEC) 40 mg capsule Take 1 capsule by mouth once daily. Lancets lancets Test blood sugar(s) 6 to 7 times daily. Dx: Type 2 DM - Uncontrolled E11.65 Insulin: Yes insulin needles, DISPOSABLE, (PEN NEEDLE) 31 gauge x 5/16 Use one needle per dose. 6x per day. Increased amount. On sliding scale + 5 injections per day metFORMIN ER (GLUCOPHAGE XR) 500 mg 24 hr tablet Take 2 tablets by mouth twice daily before meals. loratadine (CLARITIN) 10 mg tablet Take 1 tablet by mouth once daily. For post nasal drip blood sugar diagnostic (BLOOD GLUCOSE TEST) test strip Test blood sugar(s) 6 to 7 times daily. Dx: Type 2 DM - Uncontrolled E11.65 Z79.4 Insulin: Yes Lancing Device (BD LANCET DEVICE) [facility] [place]pense 1 lancet device. May give generic. Dx: E11.9 No current facility-administered medications on file prior to visit. Relevant Current Medications: Losartan 25 mg daily Alpha lipoic acid 200 mg TID Gabapentin 1200 mg BID Topamax 100 mg BID Trulicity Insulin degludec Insulin lispro Metformin 1000 mg BID Medications tried previously (failed): None Relevant Work Up To Date Labs Component Ref Range & Units 1 yr ago Hemoglobin A1C (POCT) 4.2 - 5.6 % 9.4 Abnormal Triglycerides - 201 (H) Glucose - 366 (H) Sodium 133 (L) Vit D - 15.2 (L) Ambulatory BP Monitoring 10/12/2022 Autonomic Reflex w/ Tilt 06/22/2022 Impression Heart rate response to deep breathing as measured by the mean heart rate range and the E:I ratio are both reduced. Heart rate response to the Valsalva maneuver, as assessed by the Valsalva ratio, is normal. Blood pressure responses to phase II and phase IV of the valsalva maneuver are normal. During 10 minutes of 60 degree head-up tilt the heart rate peaked at 112 bpm at minute ten which represents a maximum increase of 25 bpm from baseline supine values (nl < 30 bpm increase). Systolic and diastolic blood pressure responses to the tilt table test are normal and generally in the hypertensive range both when supine and upright. Impression: This is an abnormal cardiovascular autonomic test panel. The reduced mean heart rate range and E:I ratio are consistent with a mild cardiovagal abnormality. There is no evidence of a cardiovascular adrenergic abnormality on the autonomic reflex tests. There is no evidence of orthostatic hypotensionor accentuated postural tachycardia. EMG 08/19/2021 Study Interpretation Electrodiagnostic examination of the left upper and lower limb was technically hampered by incomplete motor unit activation in multiple muscles either as the result of pain, poor voluntary effort, and/or a central disorder of motor unit control. It reveals: 1. 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 Mild active denervation change is seen in the intrinsic foot muscle. 2. Left median mononeuropathy at or distal to the wrist (ie: carpal tunnel syndrome), mild in degree electrically. 3. 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 Further electrodiagnostic study or neuromuscular ultrasound of the left upper limb could assist in further localizing this lesion, if clinically indicated. 4. Mild chronic motor axon loss change is seen in rectus femoris and mild myopathic change is seen in gluteus medius. In isolation, both of these findings are of unclear clinical significance. NM Gastric emptying 09/29/2022 IMPRESSION: EVIDENCE OF NORMAL RATE OF GASTRIC EMPTYING OF SOLID MEAL. MRI Thoracic, Lumbar w/ w/o 06/15/2022 IMPRESSION: Thoracic spondylotic changes including mild disc deformities, hypertrophic ligamentum flavum and facet hypertrophy, contributing to multilevel mild canal stenosis and moderate neural foraminal narrowing. Mild lumbar degenerative change with mild canal and foraminal stenosis. No evidence of signal abnormality in the thoracic cord or conus. Please see the body of report for additional findings and further discussion. Anatomic Thoracic/Lumbar Variant: None. L4-5 is considered the level of the iliac crest and assume there are 5 lumbar-type vertebrae. General Examination: BP 151/94 Pulse 97 Ht 170.2 cm (5' 7 ) Wt 93.9 kg (207 lb) LMP 03/01/2021 SpO2 96% BMI 32.42 kg/m 12/14/22 0859 12/14/22 0937 12/14/22 0938 12/14/22 0939 BP: 151/94 Orthostatic BP: 159/96 141/90 145/94 BP Position: Supine Standing Standing Pulse: 97 Orthostatic Pulse: 92 102 102 SpO2: 96% Weight: 93.9 kg (207 lb) Height: 170.2 cm (5' 7 ) Neurological Examination: Cognition The patient is alert and oriented times four. Lucid and organized in conversation. Able to provide detailed medical hx. Speech Speech is Normal in fluency, volume, and clarity. No dysarthria. Content and syntax are coherent. Comprehension: Able to follow several step commands. Cranial Nerves PERRLA No ptosis. Visual lara are full to confrontation. Extraocular movements are intact. Smooth saccades and pursuits. No nystagmus. Facial motor exam is strong and symmetric. Equal sensation of trigeminal nerve - V1,V2, and V3. Soft palate elevation is symmetric, tongue is in midline, no tongue fasciculation. Neck range of motion is full. Trapezius Strength is symmetric, graded 5/5. Tone and Bulk Tone and bulk is normal and preserved bilaterally of arms. Tone and bulk is normal and preserved bilaterally of legs. No apparent muscle atrophy. No pes cavus or hammer toes. Strength Right Left Shoulder Abduction 5/5 5/5 Elbow Flexion 5/5 5/5 Elbow Extension 5/5 5/5 Wrist Flexion 5/5 5/5 Wrist Extension 5/5 5/5 Finger Extension 5/5 5/5 Finger Flexion 5/5 5/5 Finger Abduction 5/5 5/5 Hip Flexion 5/5 5/5 Hip Adduction 5/5 5/5 Hip Abduction 5/5 5/5 Knee Flexion 5/5 5/5 Knee Extension 5/5 5/5 Ankle Dorsiflexion 5/5 5/5 Ankle Plantarflexion 5/5 5/5 Movement/Coordination Finger-to- nose-finger and hfaj-jr-pgis intact bilaterally. No evidence of ataxia arms. No limb dysmetria of arms and legs. Rapid alternating movements of pronation and supination, finger and hand tapping decreased fluency. No rigidity, cog wheeling, or bradykinesia. No tremors. No extrapyramidal findings or dystonia. Sensation Decreased temperature bilateral hands, LLE above knee to toes, RLE below knee to toes Decreased vibration bilateral toes L>R Mixed hyperesthesia and decreased sensation to pinprick throughout arms and legs Normal proprioception (toe position and thumb). Reflexes Right Left Bicep 08/09 08/09 Tricep 08/09 08/09 Brachioradialis 08/09 1 Patella 08/09 08/09 Ankle 0/ 0 No Clonus. Negative Babinski (toes curl down). Keating sign not present. Gait Able to stand without upper body assistance. Antalgic gait. No festination or retropulsion. Good arm swing and body turn. Able to toe, heel, and tandem walk with difficulty Romberg's sign is negative. Assessment & Plan 12/14/2022 - Neuromuscular, Ana Edwards, VICENTE.SUPERVISOR DRYING [employer] WINDING ASSESSMENT Kathleen Mcdaniel is a 37 year old here today for initial evaluation. Kathleen Mcdaniel has a has a past medical history of Agoraphobia with panic disorder (08/29/2005), Bipolar I disorder, DM 2 (poorlycontrolled, most recent Hgb A1C 9.4), DVT (deep venous thrombosis), Esophagitis, Fibromyalgia (08/25/2010), Genital herpes (05/10/2012), Hyperlipidemia, Hypertension, Labile blood pressures, Median andulnar neuropathy (L), MRSA (methicillin resistant staph aureus), Obesity, Obsessive-compulsive personality disorder, Polyneuropathy, PCOS (polycystic ovarian syndrome), Schizophrenia (04/21/2010). She often feels lightheaded and faint on standing, and has to sit back down. She sometimes notes heart pounding on standing as well. She has frequent BEASLEY. She had autonomic reflex with tilt [id number] demonstating only a mild cardiovagal abnormality without OH or POTS on tilt. I would comment that her late and mild tachycardia is most consistent with orthostatic intolerance (OI). She had both tachycardia and hypotension, which did not meet criteria for POTS or OH. These findings are mostconsistent with her neuroapthy. She had EMG completed 08/2021 demonstrating a mild generalized sensory predominany polyneropathy. Also demonstrating L median and ulnar mononeuropathies. Labs ordered by Dr. Cary for mimics, thoughI cannot see these were completed and I will re-order appropriate labs for mimics. Neuropathy likely related to her poor diabetes control (most recent Hgb A1C 9.4). She is on alpha lipoic acid. She continues to struggle with DM management. She reports she is not currently taking meal time insulin due to her BG dropping unexpectedly, and will get very high with low carb snacks. She reports she does not have her Chandrakant device right now due to insurance issues, and does not have a finger-stick monitor at this time. She is scheduled to see endocrinology in January for assistance in better diabetes management. I encourage her to seek PCP guidance [facility] for blood glucose management in the interim. She is following with nephrology for hypertension management. Currently taking losartan 25 mg daily. she did have ambulatory blood pressure monitoring completed 10/12/2022 though I cannot see an interpretation. On my review, monitoring demonstrating frequent hypertension, with systolic above 210 at multiple points throughout the day. She does have nocturnal dipping, though blood pressure remains hypertensive throughout. She reports she does have ongoing issues with labile blood pressure, thoughshe typically runs high. She has ongoing issues with GI dysregulation. She reports she often does not have a bowel movement for 2 weeks, and can have diarrhea at times. She can feel nauseated and occasionally vomit after eating. She had NM gastric emptying study completed 09/2022, which did not demonstrate gastroparesis. She is scheduled to see GI locally in [place] in the coming months. She also has issues with swallowing and feeling like food gets stuck. She has issues with SICCA symptoms as well, will check labs. Typically for this patient I would prefer beta carmen for management of tachycardia and hypertension, but given her poor DM control I am concerned for the hypoglyecmic blunting, especially given that she is not regularly checking her sugar. For now we will try pyridostigmine for BP and HR modulation. PLAN 1) Labs (fasting) 2) Speech swallow evaluation 3) SMA 4) Follow up with your eye doctor for diabetic eye exam 5) Follow up with PCP for glucose monitor 6) Pyridostigmine 60 mg 3x daily Pyridostigmine/mestinon 60 mg is used for POTS well by increasing nerve impulses. Will send to yourpharmacy. Follow these instructions below: Take with food. Week 1 and 2: One pill mestinon at bedtime. Week 3 and 4 : One pill after breakfast and one at bedtime. Week 5 and onward : (If not better) One pill after breakfast, one mid afternoon, and one at bedtime. If the medication is helping you should notice less fatigue, dizziness, and better stamina. We start low to avoid side effects of nausea and diarrhea. Keep monitoring your blood pressure. Like all medications, there is some risk of allergic reaction. Can have additive effect with antiglaucoma drugs may cause or exacerbate problems with night vision. Current management of orthostatic condition: Conservative Measures: -Increased water intake (2-2.5 liters of water daily) -Increased salt intake (3-5 grams daily) -Compression stockings -Cardiac Rehab / Progressive exercise -Shared medical appointment with Dr. Fair -Elevate head of bed -Continue with mental health care Return 3-6 months. My impression and recommendations were discussed at length with the patient (and family members, ifpresent). The patient and family (if present) voiced understanding to my recommendations. All questions were answered. Medication side effects discussed as applicable. The patient was provided with adetailed after visit summary highlighting my impression and recommendations. I spent a total of 60 minutes on the date of the service which included preparing to see the patient, [id number] patient care, completing clinical documentation, obtaining and/or reviewing separately obtained history, performing a medically appropriate examination, counseling and educating the pat ient/family/caregiver, and ordering medications, tests, or procedures. Ana Edwards APRN.[facility] General Neurology [address] [place] [address]. [id number] Appointment: [phone] During our face to face clinical encounter we discussed my concerns neurologically in terms of diagnosis, impact on health and activities of living, and addressed questions. I tried to reassure the patient and also address questions. I explained to the patient to call if any questions, to review res ults, and I want to see them return for neurological follow up as mychart as next steps of communication is agreed upon Patient verbalizes understanding and I have addressed concerns and questions at this visit Patient has my contacts, educational material provided, and my chart sign up. After visit summary discussed. 1. This office note has been dictated and may contain minor typographic errors that escaped review. 2. The nursing staff and medical assistants are a major part of YOUR TREATMENT TEAM and will be handling your phone calls and inquiries, if any. Unless explicitly told otherwise at the time of your office visit, your study results and ensuing treatment plans will be discussed during your follow-up appointment. If you do not have a follow-up appointment and wish to discuss any issues directly withme, please feel free to obtain one. 3. It is my practice to not fill disability or any other insurance-related forms/documention. All of the office notes, study results, and other pertinent documentation generated as part of your evaluation will be available to you and to your Primary Care Physician (PCP). Use of this material to complete such forms will be at the discretion of your PCP/referring physician documented in this encounterPomerene Hospital05-09-2023 Miscellaneous Notes* Telephone Encounter - Radha Salamanca LPN - 12/12/2022 9:13 AM EDT Left message for Patient to call office, she has never been seen at [facility], needs an appointment to get refills. Can always check with adeel PCP. Radha Salamanca LPN documented in this encounterPomerene Hospital05-09-2023 Miscellaneous Notes* Telephone Encounter - Olivia Valerio Ma - 12/12/2022 7:23 AM EDT Last office visit 06-19-22 NO Future appts documented in this encounterPomerene Hospital03-09-2023 Miscellaneous Notes* Telephone Encounter - Abby Cabral RN - 10/12/2022 9:14 PM EST Patient calling with request for monitoring equipment advice. Patient denies any new or worsening symptoms of which a provider is not aware: Yes. Patient states the monitor she is wearing is squeezing arm too tight, she does not want to disturb testing. Conferenced to [facility] Client Experience Specialist for on-call Nephrology physician. documented in this encounterPomerene Hospital03-09-2023 NoteMagruder [facility]03-09-2023 Instructions* Patient Instructions* Mercedes Valerio MA - 10/12/2022 9:18 AM EST AMBULATORY BLOOD PRESSURE MONITOR Performed automated office BP reading and results downloaded into happyview. Average BP: 144/85 AOBP - Standardized BP Measurement BP #1: 143/78 Pulse #1: 107 beats/min BP #2 : 150/91 Pulse #2 : 102 beats/min BP #3 : 141/85 Pulse #3 : 103 beats/min Average BP: 144/85 Average Pulse: 104 beats/min BP cuff location: Left upper arm BP cuff size: large adult Was office BP more than 180/100 (yes/no) If yes, provider informed: name of provider NO Action taken: NONE Applied ambulatory blood pressure monitor. Test reading done, demonstrated to patient Explained to patient the event form and also explained that on the event form they must document blood pressure medications taken morning, noon, and night. Explained to patient that they must keep the 24-hour monitor dry, to be still when the cuff inflates (to help reduce errors), and to resume usual activity once cuff deflates. Patient instructed to remove monitor and stop procedure if there is significant cuff inflation discomfort leading to pain or bruising. Patient instructed to follow up with ordering provider about results Explained to patient to return monitor by mail via Selatra no later than: 10/13/2022. Serial number: [id number] Selatra Tracking number [id number] Did the patient receive a blood pressure cuff? Yes Did the patient receive a blood pressure monitor? Yes Did the patient receive a belt? Yes Patient expressed understanding of all above. Patient signed financial release form and aware that they will be billed if the monitor is not returned by the specified date. All questions answered Mercedes Valerio MA documented in this encounterPomerene Hospital03-09-2023 History of Present illness Narrative* Mercedes Valerio MA - 10/12/2022 9:17 AM EST AMBULATORY BLOOD PRESSURE MONITOR Performed automated office BP reading and results downloaded into happyview. Average BP: 144/85 AOBP - Standardized BP Measurement BP #1: 143/78 Pulse #1: 107 beats/min BP #2 : 150/91 Pulse #2 : 102 beats/min BP #3 : 141/85 Pulse #3 : 103 beats/min Average BP: 144/85 Average Pulse: 104 beats/min BP cuff location: Left upper arm BP cuff size: large adult Was office BP more than 180/100 (yes/no) If yes, provider informed: name of provider NO Action taken: NONE Applied ambulatory blood pressure monitor. Test reading done, demonstrated to patient Explained to patient the event form and also explained that on the event form they must document blood pressure medications taken morning, noon, and night. Explained to patient that they must keep the 24-hour monitor dry, to be still when the cuff inflates (to help reduce errors), and to resume usual activity once cuff deflates. Patient instructed to remove monitor and stop procedure if there is significant cuff inflation discomfort leading to pain or bruising. Patient instructed to follow up with ordering provider about results Explained to patient to return monitor by mail via Selatra no later than: 10/13/2022. Serial number: [id number] Selatra Tracking number [id number] Did the patient receive a blood pressure cuff? Yes Did the patient receive a blood pressure monitor? Yes Did the patient receive a belt? Yes Patient expressed understanding of all above. Patient signed financial release form and aware that they will be billed if the monitor is not returned by the specified date. All questions answered Mercedes Valerio MA documented in this encounterPomerene Hospital03-02-2023 NoteMagr[facility]03-02-2023 History of Present illness Narrative* Roman Pabon MD - 10/05/2022 2:[address] [facility] SERVICE DATE: 10/05/2022 SERVICE TIME: 3:16 PM REASON FOR CONSULT: I am asked to see this patient in consultation for my opinion regarding blood pressure. My recommendations will be communicated by way of shared medical record, fax, or mail. PRIMARY CARE PHYSICIAN: Can Anderson CHIEF COMPLAINT: diabetes, hypertension, proteinuria HPI: Ms. Mcdaniel is a 37 year old female who presents with HTN and proteinuria. 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 Saw an autonomic neurologist, Was dx w HTN since age 18: -BP used to be 160/100s since then -In the past year average is 180/120, high as 220/140, no hospitalizations, no AKIs that she knows of. Some days 109/56. Started on losartan 50mg daily months ago, was taking daily for months but remained labile so she became afraid to take it after BP 80s/50s. -Currently prescribed with 50mg up to BID prn, addition of HCTZ, however currently not taking Dx with T2DM at age 18: -Will have a new Engineering Programmer here -Uncontrolled, A1c >9 2020, now insulin dependent, she reports that most recent A1c 9 on trulicity 3/ tresiba 35 (however not adherent to this due to fear of hypoglycemia) -lost 100lb over past couple years intentionally but insulin requirements only increased, now has glc monitor in place Complications: -thought she had gastroparesis but emptying study nl, will see a GI -polyneuropathy -eye appt coming up but has been told she has begninnings of diabetic eye changes -2 surgeries for nec fasc from diabetes -Hypoglycemia episodes to 55 even after being in the 300s and taking 5U insulin, asymptomatic, which leads to lower insulin use due to fear Urinary symptoms: -Polyuria, sometimes instead will have urinary hesitancy. -No h/o kidney stone. -No JESSICA, EXERCISE EQUIPMENT SPECIALIST. -reports Small benign cyst on kidney in spine imaging. -Many UTIs, none recently, used to get a lot of doxycycline. -Has noticed hematuria a couple times in the urine, sometimes not during a UTI episode. -Takes a lot of ibuprofen, 800mg q4h on menses. Does get WADSWORTH, Morning fatigue, snoring, apnea. 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 Bipolar I disorder, most recent episode (or current) mixed, unspecified Cavus deformity of foot, acquired 05/13/2009 Cervical high risk human papillomavirus (HPV) DNA test positive 2008 DIABETES MELLITUS TYPE II UNCONTR UNCOMPL 09/12/2005 DVT (deep venous thrombosis) (HCC) Esophagitis, unspecified Fibromyalgia 08/25/2010 Genital herpes 05/10/2012 Heavy menstrual bleeding 01/30/2014 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/2014 MRSA (methicillin resistant staph aureus) culture positive chronic, legs, groins, armpit Obesity 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 Oligomenorrhea 10/27/2009 Other and unspecified hyperlipidemia 08/29/2005 Papanicolaou smear of cervix with atypical squamous cells of undetermined significance (ASC-US) 2008 Papanicolaou smear of cervix with low grade squamous intraepithelial lesion (LGSIL) PCOS (polycystic ovarian syndrome) Schizophrenia (HCC) 04/21/2010 [facility] Unspecified essential hypertension 08/29/2005 PAST SURGICAL HISTORY: PAST SURGICAL HISTORY Procedure Laterality Date ARTHRS KNE SURG W/MENISCECTOMY MED/LAT W/SHVG 11/13/2014 Left knee arthroscopic medial meniscus repair COLPOSCOPY CERVIX UPPER/ADJACENT VAGINA 11/2007 Colposcopy DBRDMT SKN SUBQ T/M/F NECRO INFCTJ ABDL WALL 09/15/2016 Extensive debridement for necrotizing fasciitis-30 x 14 x 8 cm ESOPHAGOGASTRODUODENOSCOPY TRANSORAL DIAGNOSTIC 02/26/2008 EGD PAST SURGICAL HISTORY OF RFA lumbar, SI joint injections VAGINOSCOPY 07/15/2012 FAMILY HISTORY: FAMILY HISTORY Problem Relation Age of Onset Hypertension Mother other (brain aneurysm) Mother 50 Hypertension Father Diabetes Father Heart Father Hypertension Maternal Grandmother Cancer Maternal Grandmother Throat, kidney, breast Heart Maternal Grandmother Mi X 3 Stroke Maternal Grandmother Hypertension Maternal Grandfather Diabetes Paternal Grandmother and High Cholesterol Stroke Paternal Grandmother Cataract Paternal Grandmother Cancer Paternal Grandmother Kidney, liver, lung other (High Cholesterol) Paternal Grandfather other (Kidney Failure) Paternal Grandfather SOCIAL HISTORY: Social History Tobacco Use Smoking status: Some Days Types: Cigars Smokeless tobacco: Never Tobacco comments: smokes cigars 4 per day Vaping Use Vaping Use: Never used Substance Use Topics Alcohol use: No Drug use: No MEDICATIONS: Alpha Lipoic Acid 200 mg tab Take by mouth three times daily. topiramate (TOPAMAX) 100 mg tablet Take 1 tablet by mouth twice daily. gabapentin (NEURONTIN) 600 mg tablet Take 2 tablets by mouth twice daily for 180 days. insulin lispro (HUMALOG KWIKPEN) 100 unit/mL Inject 20 Units subcutaneously twice daily before meals. or by sliding scale based on mealtime blood sugar albuterol HFA (VENTOLIN HFA) 90 mcg/actuation inhaler inhale 2 puffs every 4 hours as needed for wheezing and shortness of breath omeprazole (PRILOSEC) 40 mg capsule Take 1 capsule by mouth once daily. Lancets lancets Test blood sugar(s) 6 to 7 times daily. Dx: Type 2 DM - Uncontrolled E11.65 Insulin: Yes insulin needles, DISPOSABLE, (PEN NEEDLE) 31 gauge x 5/16 Use one needle per dose. 6x per day. Increased amount. On sliding scale + 5 injections per day metFORMIN ER (GLUCOPHAGE XR) 500 mg 24 hr tablet Take 2 tablets by mouth twice daily before meals. loratadine (CLARITIN) 10 mg tablet Take 1 tablet by mouth once daily. For post nasal drip blood sugar diagnostic (BLOOD GLUCOSE TEST) test strip Test blood sugar(s) 6 to 7 times daily. Dx: Type 2 DM - Uncontrolled E11.65 Z79.4 Insulin: Yes Lancing Device (BD LANCET DEVICE) [facility] [place]pense 1 lancet device. May give generic. Dx: E11.9 Biotin 800 mcg tab Take 1 tablet by mouth once daily. Chlorhexidine Gluconate (PERIDEX) 0.12 % solution Use 15 mL as instructed twice daily. Rinse aroundmouth for 30 seconds then expectorate clindamycin (CLEOCIN) 150 mg capsule Clindamycin Clindamycin 300 MG PO TWICE A DAY May 08, 2018 Active 05-08-[address] [facility] ([id number]) losartan (COZAAR) 100 mg tablet Take 1 tablet by mouth once daily. (Patient not taking: Reported on08/22/2022) dulaglutide (TRULICITY) 4.5 mg/0.5 mL pen injector Inject 4.5 mg subcutaneously one time a week. (Patient taking differently: Inject subcutaneously one time a week. They decreased her dose to 3mg) insulin degludec (TRESIBA FLEXTOUCH U-100) 100 unit/mL (3 mL) injection pen Inject 70 Units subcutaneously every morning. 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: SEE HPI MUSCULOSKELETAL: back pain SKIN: Negative for lesions, rash, and itching PSYCH: Positive for depression: , anxiety: , and See HPI HEMATOLOGY/LYMPHOLOGY: Positive for bruises easily and See HPI ENDOCRINE: Positive for polyuria: , diabetes mellitus on insulin NEURO: Tension headaches, Numbness or tingling of hands, and Numbness or tingling of feet PHYSICAL EXAM: BP 150/100 (BP Site: Right Arm, BP Position: Sitting, BP Cuff Size: Regular Adult) Pulse 96 Temp 36.9 C (98.4 F) (Oral) Ht 172.7 cm (5' 8 ) Wt 94 kg (207 lb 3.2 oz) LMP 03/01/2021 BMI 31.50 kg/m BP - standardized method Pulse 1 BP #1: 153/103 Pulse #1: 96 beats/min 2 BP #2 : 156/101 Pulse #2 : 96 beats/min 3 BP #3 : 142/96 Pulse #3 : 98 beats/min Average Average BP: 150/100 Average Pulse: 96 beats/min Orthostatic vitals Supine Sitting Standing Standing BP : 137/91 Standing pulse : 105 BP cuff location BP cuff location: Right upper arm BP cuff size BP cuff size: regular adult Comments for BP values First BP (right) First BP (Right): 169/114 First BP (left) First BP (Left): 169/116 Constitutional: Responsive, pleasant, and anxious appearing, somewhat of a smoke smell, accompaniedby Eyes: Noscleral icterus and PERRL Ear, Nose, and Throat: Hearing normal, Lips normal, and Oropharynx exam unable to fully visualize given Mallampati but no thrush Neck:Trachea midline No jugular venous distension Cardiovascular:No peripheral edema Regular rate and ryhthm, normal S1 and S2, no murmurs, rubs, or gallops Respiratory: Normal respiratory effort. Lungs clear bilaterally. Abdomen: soft, non distended, non tender except to deep RUQ palpation was told from NAFLD Musculoskeletal: No clubbing or cyanosis of digits. and Normocephalic. Neurologic:CN II-XII intact and decreased hand and feet sensation which was obs by Neuro as well Psychiatric: Alert and oriented x self, place, time, and setting Anxious affect DATA: Diagnostic tests reviewed for today's visit: Recent Labs 10/05/22 1418 COLOR Yellow CLARITY Clear UGLUC 4+* UBILI Negative UKET Negative SPGR 1.025 UHB Negative UPH 5.5 UPROT Trace NITRITES Negative LEUKEST Negative Creatinine Date Value Ref Range Status 03/08/2021 0.58 0.58 - 0.96 mg/dL Final 06/16/2019 0.63 0.58 - 0.96 mg/dL Final 11/01/2018 0.56 (L) 0.58 - 0.96 mg/dL Final 04/12/2018 0.62 0.58 - 0.96 mg/dL Final ASSESSMENT/ PLAN: 37 year old female with longstanding history of uncontrolled DM who presents with labile HTN 1. Labile hypertension - ICD9: 401.9, ICD10: R09.89 (primary diagnosis) Dysautonomia (HCC) - ICD9: 337.9, ICD10: G90.1 Tobacco use - ICD9: 305.1, ICD10: Z72.0 Many factors contributing to BP lability. With almost 20 years of uncontrolled DM, per Neuro, and as seen in orthostatic BP change there is a large component of DM dysautonomia. Adherence is an issueat this time but she had labile BP even when taking the medication consistently. Highly suspect KEENA. Also has tobacco use disorder, counseled but in pre-contemplative phase. Will assess for any secondary factors that could be contributing to this uncontrolled labile HTN given WADSWORTH and Fhx. NSAIDs could contribute to BP as well. Plan - ALDOSTERONE/DIRECT RENIN RATIO - METANEPHRINES, FREE PLASMA - CONSULT TO SLEEP MEDICINE - ADULT - AMBULATORY BP MONITORING - US RENAL ARTERY KIT VAS LAB - COMP METABOLIC PANEL - LOSARTAN 25 MG TABLET--to be taken at night - Recommended compression socks - Continue following Neuro for dysautonomia 2. Proteinuria, unspecified type - ICD9: 791.0, ICD10: R80.9 3. Type 2 diabetes mellitus with other specified complication, with long-term current use of insulin (HCC) - ICD9: 250.80, V58.67, ICD10: E11.69, Z79.4 No dx of diabetic kidney dz, creatinine 0.65 but with proteinuria hx Complications include neuropathy and possibly retinopathy, therefore she may be in the beginning stages of kidneys being affected Plan - PROTEIN CREATININE RATIO - ALBUMIN/CREAT RATIO RND UR - Encouraged ARB/ discussed NSAIDs - She has upcoming appointment with Endocrinology - Encouraged her to keep eye doctor appt SIGNATURE: Ann Marie Nelson MD PATIENT NAME: Kathleen Mcdaniel DATE: October 05, 2022 TIME: 3:16 PM CC: PRIMARY CARE PHYSICIAN: Can Anderson NEPHROLOGY STAFF PHYSICIAN NOTE OF PERSONAL INVOLVEMENT IN CARE I have seen the patient face to face and reviewed the history and physical examination obtained anddocumented by the resident/ fellow/ physician corporate sales trainer. I personally participated in the dubose components. I have discussed the case and management of the patient's care. Agree with above findings, assessment, and plan of care formulated with my direct input. Amendments, if present, are entered in bold in the note, and/or detailed below. Medical decision Making: Encounter Diagnosis ICD-10-CM 1. Proteinuria, unspecified type R80.9 PROTEIN CREATININE RATIO ALBUMIN/CREAT RATIO RND UR 2. Diabetic nephropathy associated with type 2 diabetes mellitus (HCC) E11.21 3. Hypertension, unspecified type I10 4. Dysautonomia (HCC) G90.1 5. Diabetic autonomic neuropathy associated with type 2 diabetes mellitus (HCC) E11.43 6. Tobacco use Z72.0 Consulted for evaluation of hypertension, proteinuria in patient with uncontrolled type 2 diabetes Likely diabetic autonomic neuropathy Discussed that in setting of albuminuria noted previously, would be best to to be on DEANDRA carmen - can start losartan 25 mg at night time. We discussed 24 hr ABPM and evaluation for secondary causes of hypertension as above. Renal function is stable. Has seen autonomic neurology before and some workup has been done. Does have some orthostatic drop on standing. Non-pharmacologic measures discussed(compression stockings, raising head of bed) - planned follow up with autonomic clinic. Smoking cessation discussed Signed: Roman Pabon MD documented in this encounterP[facility]02-24-2023 Note[facility] History of Present illness Narrative* Emilie Robert, RT(R) - 09/29/2022 8:00 AM EST RADIOLOGY SERVICE PROGRESS NOTE SERVICE DATE: 09/29/2022 SERVICE TIME:08:05 AM PATIENT IDENTITY VERIFICATION COMPLETED USING TWO (2) STANDARD IDENTIFIERS: Name and Date of confirmed by patient verbally FALL SCREENING: Has the patient had 2 falls in the last year or 1 fall with injury or currently using an Ambulatory Assistive Device (Walker, Cane, Wheelchair, Crutches, etc.)? Yes, Patient High Riskfor Falls What interventions were put in place to prevent falls during this visit? Instructed Patient to Callfor Help if Needed, Offered Assistance with Transfers/Clothing, Instructed Patient to Remain Seated(Not on Exam Table) Until Exam, Increased Observations by Caregivers, and Escorted to/from Restroom PATIENT GENDER DATA: .female : No status: No ALLERGIES: Reviewed and unchanged MEDICATIONS REVIEWED: No PATIENT RELEVANT IMPLANT DATA REVIEWED: Not Applicable CREATININE: Creatinine Date Value Ref Range Status 03/08/2021 0.58 0.58 - 0.96 mg/dL Final 06/16/2019 0.63 0.58 - 0.96 mg/dL Final 11/01/2018 0.56 (L) 0.58 - 0.96 mg/dL Final eGFR-All Other Races Date Value Ref Range Status 03/08/2021 >60 . Final Comment: eGFR (Estimated GFR) Units of measure: mL/min/1.73 meters squared eGFR is derived from the reexpressed MDRD Study equation using the following parameters: serum creatinine, age, gender and race. The creatinine assay has been calibrated to be traceable to IDMS. An eGFR <60 mL/min/1.73m2 for >3 months is consistent with chronic kidney disease. Refer to KDOQI guidelines for clinical interpretation. In patients with unstable renal function, e.g. those with acute kidney injury, the eGFR may not accurately reflect actual GFR. eGFR- Date Value Ref Range Status 03/08/2021 >60 Final P.O.C.T. RESULTS: N/A September 29, [address] PERFORMED: No IV SITE: NM only - not applicable, oral or physician administered agents given to patient POST EXAM PIV STATUS: Not applicable PROCEDURE TYPE: NM GET: 1.1 mCi Tc99m SULFUR COLLOID was administered orally via 4 ounces of Egg Beaters,1 pieces of toast, 1/2 ounce of jelly with 1 ounces of water orally ADMINISTRATION TIME: 08:20 PATIENT DISCHARGED TO: Ambulatory patient, left [place] department area. A Diagnostic radioactive procedure has taken place, with no further precautions necessary other than routine body substance precautions. More information regarding radiation safety can be found usingthis link: [email or web address] SIGNATURE: RT Eladia(R) PATIENT NAME: Kathleen Mcdaniel DATE: September 29, 2022 TIME: 10:49 AM PAGER/CONTACT #: documented in this encounterPomerene Hospital02-09-2023 Note[facility]02-09-2023 History of Present illness Narrative* Leighton Caraballo MD - 09/14/2022 3:02 PM EST FOLLOW UP VISIT NAME: Kathleen Mcdaniel [facility] NO.: [id number] DATE OF SERVICE: 09/14/2022 : 1985 REFERRING PHYSICIAN: Can Anderson Kathleen is a patient I am following for a nodule on her buttock which is most likely a resolving cutaneous sebaceous cyst. The patient was started on Augmentin due to a wound culture that returned as group B strep. I saw her initially 2 days previously. At that time it did not seem that there was any fluctuance and she noted the area was getting smaller. She had just started the antibiotics. She has been taking the Augmentin. She notes that it does upset her stomach but she notes that her cyst on her buttock seems to be even smaller and less uncomfortable. VITALS: Blood pressure 138/94, pulse 117, temperature 36.8 C (98.2 F), height 172.7 cm (5' 8 ), weight 93 kg (205 lb), last menstrual period 03/01/2021, SpO2 100 %. On examination, this is a subcentimeter subcutaneous nodule without signs of fluctuance or current inflammation. Assessment IMPRESSION: Solving buttock sebaceous cyst/infected PLAN: If the patient notes any problems or signs of worsening infection, the patient should contact me immediately. Diagnoses: (L02.31) Cutaneous abscess of buttock (primary encounter diagnosis) Return to Clinic: The patient is instructed to follow-up with me as needed. Leighton Caraballo MD documented in this encounterPomerene Hospital02-09-2023 Nurse Note* Evelyn Meneses RN - 09/14/2022 1:58 PM EST REVIEW OF SYSTEMS: General: The patient NOTES fatigue, denies weight loss, denies weight gain, denies feeling hot, anddenies feelings of cold. Eyes: The patient denies glaucoma, denies eye injury/surgery, wears glasses or contacts. Ear/Nose/Throat: The patient NOTES allergies, denies hayfever, denies ear infections, and denies bloody noses. Cardiovascular: The patient denies chest pain, denies heart disease, NOTES high blood pressure,denies cardiac stent, denies prior heart attack, denies irregular heart beat, denies high cholesterol, denies poor circulation, denies heart failure, other cardiac issues, NOTES claudication, denies cold feet, denies peripheral arterial stent. Respiratory: The patient denies tuberculosis, denies pneumonia, denies frequent cough, denies pulmonary embolism, denies shortness of breath, and denies coughing up blood. Gastrointestinal: The patient denies difficulty swallowing, NOTES acid reflux, denies ulcers, denies vomiting, denies jaundice/hepatitis, denies gallbladder problems, denies black or tarry stools, denies hemorrhoids, denies bleeding from rectum, denies diverticulitis, denies constipation, denies diarrhea, denies loss of stool control, and denies hernias. Kidney/Bladder: The patient denies kidney stones, NOTES urine infections, and denies bloody urine. Skin: The patient denies a history of skin cancer, denies bleeding/changing moles, and denies a history of skin rash. Neurologic: The patient denies a history of epilepsy/convulsions, denies headaches, denies head/spinal injuries, and denies stroke/TIA. Psychiatric: The patient NOTES psychiatric medications, NOTES depression, and denies voices, deniessubstance abuse. Endocrine: The patient denies thyroid disorders, NOTES diabetes, and denies hormonal problems. Hematologic: The patient denies a history of bruising, denies bleeding, and denies anemia, denies blood clots. Infections: The patient denies a history of measles and mumps, denies rheumatic fever, and denies sexually transmitted diseases. Musculoskeletal: The patient NOTES back pain/injury, denies back problems, denies sciatica, denies knee/foot trouble, denies arthritis, or denies gout. When was patient's last Mammogram screening? 02/2019 Last Colonoscopy: None Evelyn Meneses RN documented in this encounterPomerene Hospital02-09-2023 Note[facility]02-09-2023 History of Present illness Narrative* Leighton Caraballo MD - 09/14/2022 7:33 AM EST HISTORY AND PHYSICAL [place]he[place] Mcdaniel 1985 REFERRING PHYSICIAN: Can Anderson CHIEF COMPLAINT: Consult (Stomach issues) HPI: Kathleen is a 37 year old female with a complaint of a posterior buttock abscess. Patient has a prior history of necrotizing fasciitis for which I treated her for in the past. She was very concerned that this could become necrotizing fasciitis so she presented to the emergency department. A wound culture was obtained and she was initially started on clindamycin. Returned as group B strep which was felt to be sensitive to penicillin. The patient had a mild penicillin allergy soshe was started on Augmentin the day prior to visit with me. Notes no fevers she notes ibuprofen helps it hurts when she sits on the area. She notes no drainagefrom the area. 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 11/23/2014 MRSA (methicillin resistant staph aureus) culture positive chronic, legs, groins, armpit Obesity 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 Oligomenorrhea 10/27/2009 Other and unspecified hyperlipidemia 08/29/2005 Papanicolaou smear of cervix with atypical squamous cells of undetermined significance (ASC-US) 2007 Papanicolaou smear of cervix with low grade squamous intraepithelial lesion (LGSIL) PCOS (polycystic ovarian syndrome) Schizophrenia ([facility]) 04/21/2010 [facility] Unspecified essential hypertension 08/29/2005 OPERATIONS: PAST SURGICAL HISTORY Procedure Laterality Date ARTHRS KNE SURG W/MENISCECTOMY MED/LAT W/SHVG 11/13/2014 Left knee arthroscopic medial meniscus repair COLPOSCOPY CERVIX UPPER/ADJACENT VAGINA 11/2007 Colposcopy DBRDMT SKN SUBQ T/M/F NECRO INFCTJ ABDL WALL 09/15/2016 Extensive debridement for necrotizing fasciitis-30 x 14 x 8 cm ESOPHAGOGASTRODUODENOSCOPY TRANSORAL DIAGNOSTIC 02/26/2008 EGD PAST SURGICAL HISTORY OF RFA lumbar, SI joint injections VAGINOSCOPY 07/15/2012 CURRENT MEDICATIONS: Current Outpatient Medications Medication Sig Dispense Refill topiramate (TOPAMAX) 100 mg tablet Take 1 tablet by mouth twice daily. 180 tablet 1 gabapentin (NEURONTIN) 600 mg tablet Take 2 tablets by mouth twice daily for 180 days. 360 tablet 1 insulin lispro (HUMALOG KWIKPEN) 100 unit/mL Inject 20 Units subcutaneously twice daily before meals. or by sliding scale based on mealtime blood sugar (Patient not taking: Reported on 08/22/2022) 30 mL 1 Chlorhexidine Gluconate (PERIDEX) 0.12 % solution Use 15 mL as instructed twice daily. Rinse aroundmouth for 30 seconds then expectorate 473 mL 0 clindamycin (CLEOCIN) 150 mg capsule Clindamycin Clindamycin 300 MG PO TWICE A DAY May 08, 2018 Active 05-08-[address] [facility] ([id number]) albuterol HFA (VENTOLIN HFA) 90 mcg/actuation inhaler inhale 2 puffs every 4 hours as needed for wheezing and shortness of breath 18 g 5 losartan (COZAAR) 100 mg tablet Take 1 tablet by mouth once daily. (Patient not taking: Reported on08/22/2022) 30 tablet 11 dulaglutide (TRULICITY) 4.5 mg/0.5 mL pen injector Inject 4.5 mg subcutaneously one time a week. (Patient taking differently: Inject subcutaneously one time a week. They decreased her dose to 3mg) 2 mL 11 insulin degludec (TRESIBA FLEXTOUCH U-100) 100 unit/mL (3 mL) injection pen Inject 70 Units subcutaneously every morning. 15 mL 5 omeprazole (PRILOSEC) 40 mg capsule Take 1 capsule by mouth once daily. 30 capsule 11 Lancets lancets Test blood sugar(s) 6 to 7 times daily. Dx: Type 2 DM - Uncontrolled E11.65 Insulin: Yes 200 Each 11 insulin needles, DISPOSABLE, (PEN NEEDLE) 31 gauge x 5/16 Use one needle per dose. 6x per day. Increased amount. On sliding scale + 5 injections per day 200 Each 11 metFORMIN ER (GLUCOPHAGE XR) 500 mg 24 hr tablet Take 2 tablets by mouth twice daily before meals. 120 tablet 11 loratadine (CLARITIN) 10 mg tablet Take 1 tablet by mouth once daily. For post nasal drip 30 [id number] blood sugar diagnostic (BLOOD GLUCOSE TEST) test strip Test blood sugar(s) 6 to 7 times daily. Dx: Type 2 DM - Uncontrolled E11. Z79.4 Insulin: Yes 200 Strip 11 Lancing Device (BD LANCET DEVICE) [facility] [place]pense 1 lancet device. May give generic. Dx: E11.9 1 Each0 No current facility-administered medications for this visit. ALLERGIES: Amoxicillin, Cephalexin, Doxycycline, Asenapine Maleate, and Saphris [Asenapine] PERSONAL HISTORY: Social History Tobacco Use Smoking status: Some Days Types: Cigars Smokeless tobacco: Never Tobacco comments: smokes cigars 4 per day Vaping Use Vaping Use: Never used Substance Use Topics Alcohol use: No Drug use: No FAMILY HISTORY: FAMILY HISTORY Problem Relation Age of Onset Hypertension Mother other (brain aneurysm) Mother 50 Hypertension Father Diabetes Father Heart Father Hypertension Maternal Grandmother Cancer Maternal Grandmother Throat, kidney, breast Heart Maternal Grandmother Mi X 3 Stroke Maternal Grandmother Hypertension Maternal Grandfather Diabetes Paternal Grandmother and High Cholesterol Stroke Paternal Grandmother Cataract Paternal Grandmother Cancer Paternal Grandmother Kidney, liver, lung other (High Cholesterol) Paternal Grandfather other (Kidney Failure) Paternal Grandfather REVIEW OF SYMPTOMS: The review of systems data was entered by the nurse and reviewed by me There are no exam notes on file for this visit. PHYSICAL EXAMINATION: General: The patient is 37 year old female, well nourished, well hydrated in no acute distress. Thepatient is oriented to time, place, and person. VITALS: Blood pressure 142/90, pulse (!) 127, temperature 36.4 C (97.6 F), height 172.7 cm (5' 8 ),weight 93.3 kg (205 lb 9.6 oz), last menstrual period 03/01/2021, SpO2 95 %. Body mass index is 31.26 kg/m . Other: Is a small nodule on her right buttock approximately 1 cm in size. Is not currently fluctuant. The skin over the area is scabbing somewhat looks to be consistent with a resolving infected sebaceous cyst. LABORATORY VALUES: As Noted RADIOLOGIC STUDIES: As Noted Assessment IMPRESSION: right buttock abscess -resolving? PLAN: Kathleen is to continue her antibiotics. She return in 2 days to have the site reevaluated. If the site continues to resolve we will do no maneuvers. If the area is same or worse we would consider incision and drainage.. Diagnoses: (M72.6) Necrotizing fasciitis (HCC) (primary encounter diagnosis) (L02.31) Cutaneous abscess of buttock Return to Clinic: The patient is instructed to follow-up with me in 2 days. Leighton Caraballo MD documented in this encounterPomerene Hospital01-31-2023 Miscellaneous Notes* Telephone Encounter - Satinder Hameed RN - 09/05/2022 8:54 AM EST CHRIS: 06/19/2022 NOV:09/22/2022 documented in this encounterPomerene Hospital01-17-2023 [facility] Instructions* Patient Instructions* Calos Bravo - 08/22/2022 11:17 AM EST Diabetes Foot Care Instructions When you have diabetes, proper foot care is very important. Poor foot care may lead to amputation of a foot or leg. As a person with diabetes, you are more vulnerable to foot problems, because diabetes can damage your nerves and reduce blood flow to your feet. Here are some diabetes foot care tips to follow: Wash and Dry Your Feet Daily Use mild soaps Use warm water Pat your skin dry; do not rub. Thoroughly dry your feet. After washing, use lotion on your feet to prevent cracking. Do not put lotion between your toes. Examine Your Feet Each Day Check the tops and bottoms of your feet. Have someone else look at your feet if you cannot see them. Check for dry, cracked skin. Look for blisters, cuts, scratches, or other sores. Check for redness, increased warmth, or tenderness when touching any area of your feet. Check for ingrown toenails, corns, and calluses. If you get a blister or sore from your shoes, do not pop it. Apply a bandage and wear a differentpair of shoes. Take Care of Your Toenails Cut toenails after bathing, when they are soft. Cut toenails straight across and smooth with a nail file. Avoid cutting into the corners of toes. Do not cut cuticles. If you have neuropathy (or decreased sensation in your feet) a construction management assistant should always cut your toenails. Be Careful When Exercising Walk and exercise in comfortable shoes. Do not exercise when you have open sores on your feet. Protect Your Feet With Shoes and Socks Never go barefoot. Always protect your feet by wearing shoes or hard-soled slippers or footwear. Avoid shoes with high heels and pointed toes. Avoid shoes that expose your toes or heels (such as open-toed shoes or sandals). These types of shoes increase your risk for injury and potential infections. Try on new footwear with the type of socks you usually wear. Do not wear new shoes for more than an hour at a time. Change your socks daily. Look and feel inside your shoes before putting them on to make sure there are no foreign objects orrough areas. Avoid tight socks. Wear natural-fiber socks (cotton, wool, or a cotton-wool blend). Wear special shoes if your health care provider recommends them. Wear shoes/boots that will protect your feet from various weather conditions (cold, moisture, etc.). Make sure your shoes fit properly. If you have neuropathy (nerve damage), you may not notice that your shoes are too tight. Perform the footwear test described below. Footwear Test Use this simple test to see if your shoes fit correctly: Stand on a piece of paper. (Make sure you are standing and not sitting, because your foot changes shape when you stand.) Trace the outline of your foot. Trace the outline of your shoe. Compare the tracings: Is the shoe too narrow? Is your foot crammed into the shoe? The shoe should be at least 1/2 inch longer than your longest toe and as wide as your foot. Proper Shoe Choices The following types of shoes are best for people with diabetes Closed toes and heels Leather uppers without a seam inside At least 1/2 inch extra space at the end of your longest toe Inside of shoe should be soft with no rough areas Outer sole should be made of stiff material Shoes should be at least as wide as your feet Tips for Foot Care in Diabetes Don't wait to treat a minor foot problem if you have diabetes. Follow your health care provider's guidelines and first aid guidelines. Report foot injuries and infections to your health care provider immediately. Check water temperature with your elbow, not your foot. Do not use a heating pad on your feet. Do not cross your legs. Do not self-treat your corns, calluses, or other foot problems. Go to your health care provider or construction management assistant to treat these conditions. documented in this encounterPomerene Hospital01-17-2023 History of Present illness Narrative* Calos Bravo - 08/22/2022 11:10 AM EST Initial Office Visit Subjective: This 37 year old female presents to clinic for diabetic foot check. Patient has the following complaints: neuropathy. Patient admits to being diabetic for 15 years now. Patient +B/T/N in feet at this time. Patient -pain in legs when walking. No other pedal complaints at this time. No change in medications or medical history since last visit. PAIN EVALUATION No data found in the last 1 encounters. 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 11/23/2014 MRSA (methicillin resistant staph aureus) culture positive chronic, legs, groins, armpit Obesity 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 Oligomenorrhea 10/27/2009 Other and unspecified hyperlipidemia 08/29/2005 Papanicolaou smear of cervix with atypical squamous cells of undetermined significance (ASC-US) 2007 Papanicolaou smear of cervix with low grade squamous intraepithelial lesion (LGSIL) PCOS (polycystic ovarian syndrome) Schizophrenia ([facility]) 04/21/2010 [facility] Unspecified essential hypertension 08/29/2005 Current Outpatient Medications Medication Sig gabapentin (NEURONTIN) 600 mg tablet Take 2 tablets by mouth twice daily for 180 days. topiramate (TOPAMAX) 25 mg tablet Take 3 tablets by mouth daily at bedtime. albuterol HFA (VENTOLIN HFA) 90 mcg/actuation inhaler inhale 2 puffs every 4 hours as needed for wheezing and shortness of breath dulaglutide (TRULICITY) 4.5 mg/0.5 mL pen injector Inject 4.5 mg subcutaneously one time a week. (Patient taking differently: Inject subcutaneously one time a week. They decreased her dose to 3mg) insulin degludec (TRESIBA FLEXTOUCH U-100) 100 unit/mL (3 mL) injection pen Inject 70 Units subcutaneously every morning. omeprazole (PRILOSEC) 40 mg capsule Take 1 capsule by mouth once daily. Lancets lancets Test blood sugar(s) 6 to 7 times daily. Dx: Type 2 DM - Uncontrolled E11.65 Insulin: Yes insulin needles, DISPOSABLE, (PEN NEEDLE) 31 gauge x 5/16 Use one needle per dose. 6x per day. Increased amount. On sliding scale + 5 injections per day metFORMIN ER (GLUCOPHAGE XR) 500 mg 24 hr tablet Take 2 tablets by mouth twice daily before meals. loratadine (CLARITIN) 10 mg tablet Take 1 tablet by mouth once daily. For post nasal drip blood sugar diagnostic (BLOOD GLUCOSE TEST) test strip Test blood sugar(s) 6 to 7 times daily. Dx: Type 2 DM - Uncontrolled E11.65 Z79.4 Insulin: Yes Lancing Device (BD LANCET DEVICE[place] [facility] [place] 1 lancet device. May give generic. Dx: E11.9 insulin lispro (HUMALOG KWIKPEN) 100 unit/mL Inject 20 Units subcutaneously twice daily before meals. or by sliding scale based on mealtime blood sugar (Patient not taking: Reported on 08/22/2022) Chlorhexidine Gluconate (PERIDEX) 0.12 % solution Use 15 mL as instructed twice daily. Rinse aroundmouth for 30 seconds then expectorate clindamycin (CLEOCIN) 150 mg capsule Clindamycin Clindamycin 300 MG PO TWICE A DAY May 08, 2018 Active 05-08-[address] [facility] ([id number]) losartan (COZAAR) 100 mg tablet Take 1 tablet by mouth once daily. (Patient not taking: Reported on08/22/2022) No current facility-administered medications for this visit. ALLERGIES Allergen Reactions Amoxicillin Itching, Unknown, Hives, Rash, Other: See Comments Cephalexin GI Upset, Other: See Comments Doxycycline Rash, Other: See Comments Asenapine Maleate Unknown, Other: See Comments Saphris [Asenapine] Mental Status Change PAST SURGICAL HISTORY Procedure Laterality Date ARTHRS KNE SURG W/MENISCECTOMY MED/LAT W/SHVG 11/13/2014 Left knee arthroscopic medial meniscus repair COLPOSCOPY CERVIX UPPER/ADJACENT VAGINA 11/2007 Colposcopy DBRDMT SKN SUBQ T/M/F NECRO INFCTJ ABDL WALL 09/15/2016 Extensive debridement for necrotizing fasciitis-30 x 14 x 8 cm ESOPHAGOGASTRODUODENOSCOPY TRANSORAL DIAGNOSTIC 02/26/2008 EGD PAST SURGICAL HISTORY OF RFA lumbar, SI joint injections VAGINOSCOPY 07/15/2012 FAMILY HISTORY Problem Relation Age of Onset Hypertension Mother other (brain aneurysm) Mother 50 Hypertension Father Diabetes Father Heart Father Hypertension Maternal Grandmother Cancer Maternal Grandmother Throat, kidney, breast Heart Maternal Grandmother Mi X 3 Stroke Maternal Grandmother Hypertension Maternal Grandfather Diabetes Paternal Grandmother and High Cholesterol Stroke Paternal Grandmother Cataract Paternal Grandmother Cancer Paternal Grandmother Kidney, liver, lung other (High Cholesterol) Paternal Grandfather other (Kidney Failure) Paternal Grandfather Social History Tobacco Use Smoking status: Some Days Types: Cigars Smokeless tobacco: Never Tobacco comments: smokes cigars 4 per day Vaping Use Vaping Use: Never used Substance Use Topics Alcohol use: No Drug use: No REVIEW OF SYSTEMS GENERAL: Negative for Malaise, significant weight loss, fever RESPIRATORY: Negative for cough, wheezing and shortness of breath CARDIOVASCULAR: Negative for chest pain, leg swelling and palpitations GI: Negative for abdominal discomfort, blood in stools or black stools and change in bowel habits : Negative for dysuria, frequency and incontinence MUSCULOSKELETAL: Negative for joint pain or swelling, back pain, and muscle pain. SKIN: Negative for lesions, rash, and itching. HEMATOLOGY/LYMPHOLOGY Negative for prolonged bleeding, bruising easily, and swollen nodes. ENDOCRINE: Negative for cold or heat intolerance, polyuria, polydipsia and goiter. NEURO: negative The remainder of the review of systems is noncontributory. Objective: Patient presents to clinic ambulating in [facility] Constitutional: Pt is a well developed 37 year old female who is alert, oriented, cooperative and in no apparent distress. Eyes: Following during examination. No redness or drainage. Respiratory: RR normal and nonlabored. Even breathing. No evidence of distress. Psychology: Patient is engaged during conversation. Normal affect and mood. Does not appear depressed or anxious. Vasc: DP and PT pulses are palpable bilateral. CFT is less than 5 seconds bilateral. Skin temperature is warm to warm proximal to distal bilateral. There is no edema or varicosities noted. Hair growth present. Neuro: Protective sensation is intact to the foot and toes when tested with the 5.07 SWM bilateral.Vibratory sensation is decreased at the hallux bilateral. + Significant neurological defecits. Derm: Inspection and palpation performed. Nails 1-5 b/l are normal in length and thickness. Skin isof normal turgor and texture. Hyperkeratosis (minimal) noted to left 2nd toe. NO ulcerations, scars, verruca or other lesions noted. Ortho: Ankle joint DF is full with the knee extended and full with knee flexed. No pain or crepitusnoted. STJ, MTJ ROM are full and free of pain or crepitus. Muscle strength is 5/5 for dorsiflexors,plantarflexors, inverters, everters. Digital deformities include subtle hammertoes of b/l feet.. Assessment: (E11.49) Other diabetic neurological complication associated with type 2 diabetes mellitus (HCC) (primary encounter diagnosis) (M20.41, M20.42) Hammer toes of both feet Plan: 1. Patient was seen and evaluated. 2. Patient was instructed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 her too, mostly related to her joints. She doesn't get the tingling and numbness in her hands and feet anymore, mostly just the pain. She's been getting tingling more recentlyin her arms and legs again. She also is still working and she feels it's worsening her symptoms as well. She's trying to figureit out since they stopped her disability. It's giving her anxiety. She does have worsening daytime symptoms and wonders if she can increase GBP daytime dose. No excess sedation thus far OUTPATIENT MEDICATIONS Current Outpatient Medications on File Prior to Visit Medication Sig insulin lispro (HUMALOG KWIKPEN) 100 unit/mL Inject 20 Units subcutaneously twice daily before meals. or by sliding scale based on mealtime blood sugar gabapentin (NEURONTIN) 300 mg capsule Take 600mg in the morning, 1200mg at bedtime topiramate (TOPAMAX) 25 mg tablet Take 3 tablets by mouth daily at bedtime. Chlorhexidine Gluconate (PERIDEX) 0.12 % solution Use 15 mL as instructed twice daily. Rinse aroundmouth for 30 seconds then expectorate clindamycin (CLEOCIN) 150 mg capsule Clindamycin Clindamycin 300 MG PO TWICE A DAY May 08, 2018 Active 05-08-[address] [facility] ([id number]) albuterol HFA (VENTOLIN HFA) 90 mcg/actuation inhaler inhale 2 puffs every 4 hours as needed for wheezing and shortness of breath losartan (COZAAR) 100 mg tablet Take 1 tablet by mouth once daily. dulaglutide (TRULICITY) 4.5 mg/0.5 mL pen injector Inject 4.5 mg subcutaneously one time a week. insulin degludec (TRESIBA FLEXTOUCH U-100) 100 unit/mL (3 mL) injection pen Inject 70 Units subcutaneously every morning. omeprazole (PRILOSEC) 40 mg capsule Take 1 capsule by mouth once daily. Lancets lancets Test blood sugar(s) 6 to 7 times daily. Dx: Type 2 DM - Uncontrolled E11.65 Insulin: Yes insulin needles, DISPOSABLE, (PEN NEEDLE) 31 gauge x 5/16 Use one needle per dose. 6x per day. Increased amount. On sliding scale + 5 injections per day metFORMIN ER (GLUCOPHAGE XR) 500 mg 24 hr tablet Take 2 tablets by mouth twice daily before meals. loratadine (CLARITIN) 10 mg tablet Take 1 tablet by mouth once daily. For post nasal drip blood sugar diagnostic (BLOOD GLUCOSE TEST) test strip Test blood sugar(s) 6 to 7 times daily. Dx: Type 2 DM - Uncontrolled E11.65 Z79.4 Insulin: Yes Lancing Device (BD LANCET DEVICE) [facility] [place]pense 1 lancet device. May give generic. Dx: E11.9 No current facility-administered medications on file prior to visit. 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 MRSA (methicillin resistant staph aureus) culture positive chronic, legs, groins, armpit Obesity 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 Oligomenorrhea 10/27/2009 Other and unspecified hyperlipidemia 08/29/2005 Papanicolaou smear of cervix with atypical squamous cells of undetermined significance (ASC-US) 2007 Papanicolaou smear of cervix with low grade squamous intraepithelial lesion (LGSIL) PCOS (polycystic ovarian syndrome) Schizophrenia ([facility]) 04/21/2010 [facility] Unspecified essential hypertension 08/29/2005 SURGICAL HISTORY PAST SURGICAL HISTORY Procedure Laterality Date ARTHRS KNE SURG W/MENISCECTOMY MED/LAT W/SHVG 11/13/2014 Left knee arthroscopic medial meniscus repair COLPOSCOPY CERVIX UPPER/ADJACENT VAGINA 11/2007 Colposcopy DBRDMT SKN SUBQ T/M/F NECRO INFCTJ ABDL WALL 09/15/2016 Extensive debridement for necrotizing fasciitis-30 x 14 x 8 cm ESOPHAGOGASTRODUODENOSCOPY TRANSORAL DIAGNOSTIC 02/26/2008 EGD PAST SURGICAL HISTORY OF RFA lumbar, SI joint injections VAGINOSCOPY 07/15/2012 SOCIAL HISTORY Social History Tobacco Use Smoking status: Some Days Types: Cigars Smokeless tobacco: Never Tobacco comments: smokes cigars 4 per day Substance Use Topics Alcohol use: No Drug use: No FAMILY HISTORY FAMILY HISTORY Problem Relation Age of Onset Hypertension Mother other (brain aneurysm) Mother 50 Hypertension Father Diabetes Father Heart Father Hypertension Maternal Grandmother Cancer Maternal Grandmother Throat, kidney, breast Heart Maternal Grandmother Mi X 3 Stroke Maternal Grandmother Hypertension Maternal Grandfather Diabetes Paternal Grandmother and High Cholesterol Stroke Paternal Grandmother Cataract Paternal Grandmother Cancer Paternal Grandmother Kidney, liver, lung other (High Cholesterol) Paternal Grandfather other (Kidney Failure) Paternal Grandfather ALLERGIES ALLERGIES Allergen Reactions Amoxicillin Itching, Unknown, Hives, Rash, Other: See Comments Doxycycline Rash Asenapine Maleate Unknown Keflex [Cephalexin] GI Upset Saphris [Asenapine] Mental Status Change REVIEW OF SYSTEMS: No fevers, +temperature fluctuates Hand and feet susceptible No falls +imbalance PHYSICAL EXAM: [facility] 03/01/2021 Vitals by patient: BP 163/114, pulse 93, temp 97.7F, weight 199lb General appearance: Well appearing, alert, in no acute distress. Wearing glasses Neurological exam: Mental Status: Alert, oriented to person, place and time and Follows commands. Cranial Nerves: extraocular movements intact, face symmetric, no dysarthria, and tongue protrudes midline. Motor: BUE antigravity /10 without drift. LABS/DATA: A1c 7 per patient IMAGIN06/15/2022 MRI T and L spine Thoracic spondylotic changes including mild disc deformities, hypertrophic ligamentum flavum and facet hypertrophy, contributing to multilevel mild canal stenosis and moderate neural foraminal narrowing. Mild lumbar degenerative change with mild canal and foraminal stenosis. No evidence of signal abnormality in the thoracic cord or conus. Please see the body of report for additional findings and further discussion. ASSESSMENT: The pt is a 37 year old RH female with a history of HTN, HLD, schizoaffective disorder, fibromyalgia, DM2 (A1c 9.4) who presents for follow-up of idabetic neuropathy (sensory polyneuropathies, axon loss on EMG) along with mild L CTS and ulnar neuropathy. Clinically worsening with symptoms concerning for dysautonomia, including interval diagnosis of gastroparesis. Autonomic testing ordered and scheduled. PLAN: - f/u autonomic testing scheduled for 06/22/2022 - increase gabapentin to 1200mg bid - f/u 3mo in person I spent a total of 30 minutes on the date of the service which included preparing to see the patient, [id number] patient care, completing clinical documentation, obtaining and/or reviewing separately obtained history, performing a medically appropriate examination, counseling and educating the pat ient/family/caregiver, ordering medications, tests, or procedures, independently interpreting results (not separately reported), communicating results to the patient/family/caregiver, and care coordination (not separately reported). Dorothy Stephenson MD Staff, General Neurology Pager: [phone] CC: Referring Physician: No referring provider defined for this encounter. PCP: Fartun Murrell [address] [place] [address] documented in this encounterPomerene Hospital11-10-2022 History of Present illness Narrative* Cherelle White RT(R) - 06/15/2022 1:00 PM EST Radiology Service Progress Note DATE OF SERVICE: June 15, 2022 TIME: 1:05 PM PATIENT IDENTITY VERIFICATION COMPLETED USING TWO (2) STANDARD IDENTIFIERS: Name and Date of confirmed by patient verbally. FALL SCREENING: Has the patient had 2 falls in the last year or 1 fall with injury or currently using an Ambulatory Assistive Device (Walker, Cane, Wheelchair, Crutches, etc.)? No PATIENT GENDER DATA: Female. status: : No status: NO. PATIENT RELEVANT IMPLANT DATA REVIEWED: Yes ALLERGIES: Reviewed and unchanged CONTRAST ALLERGY: NO. EXAM: MRI - CONTRAST TYPE: GROUP II PERIPHERAL IV DATA: Ambulatory: A peripheral IV was started in the Left antecubital site with a Angio cath: 22 gauge. 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 Needs fasting labs.A1c, lipid, urine albumin/creatinine. documented in this encounterPomerene Hospital10-19-2022 History of Present illness Narrative* Leti Burrows RN - 05/24/2022 11:48 AM EDT Pt is a part of the structured dm program. MC message sent to patient asking her to come in for HgbA1C blood check, as it's been nearly one year since her last reading. Pt needs updated orders for this. Thank you. Leti Burrows RN documented in this encounterPomerene Hospital10-10-2022 Miscellaneous Notes* Telephone Encounter - Tabatha Ramirez LPN - 05/15/2022 1:42 PM EDT No answer. Patient cancelled 05/15/[address] Murrell and has not rescheduled. * Telephone Encounter - Gita Dugan APRN.CNS - 05/11/2022 3:55 PM EDT Please obtain ER records; do not see anything from [facility] in EPIC. Should follow ER recommendations. Would recommend a mild diet for now such as bananas, rice, applesauce tea saltines and drinking plenty of fluids. Include at least 8 ounces of broth, Gatorade, or Pedialyte daily. Avoid fatty, fried and spicy foods. If she was not given medication by ER could try OTC famotdine (Pepcid) until seen. * Telephone Encounter - Beronica Parr RN - 05/11/2022 3:22 PM EDT Patient was seen in urgent care and [facility] ER on 05/08/2022 for abdominal pain. Patient states that they did some tests on her but did not figure out anything. Patient states that she notices that 4-5 hours after she eats her stomach gets sour and she starts belching and getting dizzy. Patient states that she gets diarrhea as well. Patient set up ER follow up with Dr. Murrell on Sunday05/15/2022. Patient wants to know what else can she do about this? Patient has to go to work at 6 am. Please review and advise, Beronica Parr RN documented in this encounterPomerene Hospital10-06-2022 Miscellaneous Notes* Telephone Encounter - Jud Carlson Ma - 05/11/2022 8:26 AM EDT CHRIS: 09/09/2021 ([facility]) Please review and advise. Thank You, Jud Carlson Ma May 11, 2022 8:26 AM documented in this encounterPomerene Hospital10-05-2022 Miscellaneous Notes* Telephone Encounter - Leti Burrows RN - 05/10/2022 10:48 AM EDT Left message on identified VM for pt to come in and have A1C drawn. Leti Burrows RN documented in this encounterPomerene Hospital10-03-2022 History of Present illness Narrative* Greyson Haq APRN.FEI - 05/08/2022 12:27 PM EDT Nontoxic-appearing female presents urgent care chief complaint nausea vomiting abdominal pain dizziness. Patient states she has been weak the last few days. Has been increasingly dizzy today. Has vomited some. Has increasing abdominal pain. Presents today for evaluation. Evaluating patient I recommend patient be seen in ED to rule out acute abdominal processes. Patient will be seen at [facility]. Will be transported to ED by neighbor. Patient verbalized understanding agrees withplan of care. Greyson Haq APRN.SUPERVISOR DRYING AND WINDING documented in this encounterPomerene Hospital09-28-2022 Miscellaneous Notes* Telephone Encounter - KALLIE Quintanilla - 05/03/2022 10:34 AM EDT RN/SW called patient for diabetes ed follow up. Left message on identified voicemail to remind to have labs drawn for A1c check. documented in this encounterPomerene Hospital08-03-2022 Miscellaneous Notes* Addendum Note - Dorothy Stephenson MD - 03/08/2022 8:59 AM EDT Addended by: DOROTHY STEPHENSON on: 03/08/2022 08:59 AM Modules accepted: Orders documented in this encounterPomerene Hospital07-16-2022 History of Present illness Narrative* Christiano Pennington MD - 02/18/2022 3:23 PM EDT Patient presents with: Rash: arm and legs, itching x 1 day HPI: Rash: Location: Arms, legs, sides, neck/jaw Duration: yesterday Pruritis: Yes Pain: No Change: New spots today Bleeding/ulceration/blister/pustule: Red bumps and patches Contacts with rash: Son was seen in the ER for welts yesterday Exposure: new combo laundry detergent/fabric 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 Outdoor exposure: Park playground 2 days ago. Stayed overnight at a friend's house a couple days ago. Change in medications: Clindamycin over the last week for dental infection. Recent illness: No. Treatment: benadryl Blood sugar 223 yesterday. MEDICATIONS: clindamycin (CLEOCIN) 150 mg capsule Clindamycin Clindamycin 300 MG PO TWICE A DAY May 08, 2018 Active 05-08-[address] [facility] ([id number]) topiramate (TOPAMAX) 50 mg tablet Take 1 tablet by mouth daily at bedtime. gabapentin (NEURONTIN) 300 mg capsule Take 600mg in the morning, 1200mg at bedtime albuterol HFA (VENTOLIN HFA) 90 mcg/actuation inhaler inhale 2 puffs every 4 hours as needed for wheezing and shortness of breath losartan (COZAAR) 100 mg tablet Take 1 tablet by mouth once daily. dulaglutide (TRULICITY) 4.5 mg/0.5 mL pen injector Inject 4.5 mg subcutaneously one time a week. insulin lispro (HUMALOG KWIKPEN INSULIN) 100 unit/mL Inject 20 Units subcutaneously three times daily before meals insulin degludec (TRESIBA FLEXTOUCH U-100) 100 unit/mL (3 mL) injection pen Inject 70 Units subcutaneously every morning. omeprazole (PRILOSEC) 40 mg capsule Take 1 capsule by mouth once daily. Lancets lancets Test blood sugar(s) 6 to 7 times daily. Dx: Type 2 DM - Uncontrolled E11.65 Insulin: Yes insulin needles, DISPOSABLE, (PEN NEEDLE) 31 gauge x 5/16 Use one needle per dose. 6x per day. Increased amount. On sliding scale + 5 injections per day metFORMIN ER (GLUCOPHAGE XR) 500 mg 24 hr tablet Take 2 tablets by mouth twice daily before meals. loratadine (CLARITIN) 10 mg tablet Take 1 tablet by mouth once daily. For post nasal drip blood sugar diagnostic (BLOOD GLUCOSE TEST) test strip Test blood sugar(s) 6 to 7 times daily. Dx: Type 2 DM - Uncontrolled E11.65 Z79.4 Insulin: Yes Lancing Device (BD LANCET DEVICE[place] [facility] [place]pense 1 lancet device. May give generic. Dx: E11.9 ALLERGIES: ALLERGIES Allergen Reactions Amoxicillin Itching, Unknown, Hives, Rash, Other: See Comments Doxycycline Rash Asenapine Maleate Unknown Keflex [Cephalexin] GI Upset Saphris [Asenapine] Mental Status Change VITALS: BP 136/72 Pulse 96 Temp 36.9 C (98.4 F) Resp 16 Wt 100.2 kg (221 lb) LMP 03/01/2021 SpO2 98% BMI 33.60 kg/m PHYSICAL EXAM: GEN: pleasant, no acute distress, alert SKIN: The majority of the rash is on the forearm and upper arms: 0.5 to 1 cm erythematous excoriated rough patches with some raised induration. There is a pattern of linear distribution especially along the back of the right arm and forearm, but also clusters. Raised erythematous less than 5 mm lesions on the right jaw and neck. Red maculopapular lesions on the lower lateral torso. There are slightly erythematous and raised papule-plaques on the legs similar to the arms. No vesicles, pustules, or oozing/crust. ASSESSMENT/PLAN: 1. Rash - ICD9: 782.1, ICD10: R21 Portions of the rash on the arms are concerning for bedbug bites however the rough almost scaly surface would not be typical. Photo of her son's rash is more typical urticarial and appears to be of adifferent source. Treat for contact dermatitis. Avoid systemic steroids because of uncontrolled diabetes. - TRIAMCINOLONE ACETONIDE 0.1 % TOPICAL CREAM She has had issues with bedbugs before and will inspect her home in various locations she has stayed. Christiano Pennington MD documented in this encounterPomerene Hospital07-15-2022 Miscellaneous Notes* Telephone Encounter - Beronica uDnn RN - 02/17/2022 7:13 AM EDT Reason for call: Toothache Outcome: See provider within 4 hours recommendation. Patient conferenced to the appointment center for assistance with scheduling. Advised she contact her dentist as well. She voiced understanding. Reason for Disposition [1] SEVERE pain (e.g., excruciating, unable to do any normal activities) AND [2] not improved 2 hours after pain medicine Answer Assessment - Initial Assessment Questions 1. LOCATION: Upper left side, in the back near her wisdom tooth. Sometimes the pain radiates to theother teeth. 2. ONSET: About 2 weeks ago. Patient has contacted her dentist and was unable to be evaluated. 3. SEVERITY: Severe pain. Waking patient up at night and she has to chew on the opposite side of her mouth. She has been using Orajel that helps for about 45 minutes. She is worried she has been using too much. 4. SWELLING: Denies 5. OTHER SYMPTOMS: Migraines 6. : Denies Protocols used: [id number] documented in this encounterPomerene Hospital06-15-2022 Miscellaneous Notes* Telephone Encounter - KALLIE Quintanilla - 01/18/2022 11:08 AM EDT Sw and Nurse called to follow up with patient diabetes ed program. Sw left message for patient to call Sw back to update how she is doing and if she has any other needs. documented in this encounter[facility]22 Miscellaneous Notes* Telephone Encounter - Jud Carlson Ma - 01/03/2022 10:27 AM EDT CHRIS: 09/09/2021 ([facility]) Upcoming Appointment: 03/03/2022 Please review and advise. Thank You, Jud Carlson Ma January 03, 2022 10:28 AM documented in this encounterPome[facility]05-24-[facility]22 History of Present illness Narrative* Zenaida Roman APRN.FEI - 12/27/2021 7:20 PM EDT Subjective HPI Kathleen Mcdaniel is a 36 year old female who presents with 7 days of cough, sore throat, ears itching and pressure. Her and kids have also been sick recently. She has been using CoricidinHBP and Delsym which does not help the cough. As soon as she lays down she starts coughing and cannot stop. Review of Systems Constitutional: Negative for chills and fever. HENT: Positive for sore throat. Negative for ear pain and tinnitus. Respiratory: Positive for cough and wheezing. Negative for shortness of breath. Cardiovascular: Negative. Musculoskeletal: Negative for myalgias. 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/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 MRSA (methicillin resistant staph aureus) culture positive chronic, legs, groins, armpit Obesity 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 Oligomenorrhea 10/27/2009 Other and unspecified hyperlipidemia 08/29/2005 Papanicolaou smear of cervix with atypical squamous cells of undetermined significance (ASC-US) 2007 Papanicolaou smear of cervix with low grade squamous intraepithelial lesion (LGSIL) PCOS (polycystic ovarian syndrome) Schizophrenia ([facility]) 04/21/2010 [facility] Unspecified essential hypertension 08/29/2005 PAST SURGICAL HISTORY Procedure Laterality Date ARTHRS KNE SURG W/MENISCECTOMY MED/LAT W/SHVG 11/13/2014 Left knee arthroscopic medial meniscus repair COLPOSCOPY CERVIX UPPER/ADJACENT VAGINA 11/2007 Colposcopy DBRDMT SKN SUBQ T/M/F NECRO INFCTJ ABDL WALL 09/15/2016 Extensive debridement for necrotizing fasciitis-30 x 14 x 8 cm ESOPHAGOGASTRODUODENOSCOPY TRANSORAL DIAGNOSTIC 02/26/2008 EGD PAST SURGICAL HISTORY OF RFA lumbar, SI joint injections VAGINOSCOPY 07/15/2012 ALLERGIES Amoxicillin, Doxycycline, Asenapine Maleate, Keflex [Cephalexin], and Saphris [Asenapine] MEDICATIONS albuterol HFA (VENTOLIN HFA) 90 mcg/actuation inhaler inhale 2 puffs every 4 hours as needed for wheezing and shortness of breath gabapentin (NEURONTIN) 300 mg capsule Take 300mg in the morning 900mg at bedtime losartan (COZAAR) 100 mg tablet Take 1 tablet by mouth once daily. dulaglutide (TRULICITY) 4.5 mg/0.5 mL pen injector Inject 4.5 mg subcutaneously one time a week. insulin lispro (HUMALOG KWIKPEN INSULIN) 100 unit/mL Inject 20 Units subcutaneously three times daily before meals insulin degludec (TRESIBA FLEXTOUCH U-100) 100 unit/mL (3 mL) injection pen Inject 70 Units subcutaneously every morning. omeprazole (PRILOSEC) 40 mg capsule Take 1 capsule by mouth once daily. Lancets lancets Test blood sugar(s) 6 to 7 times daily. Dx: Type 2 DM - Uncontrolled E11.65 Insulin: Yes insulin needles, DISPOSABLE, (PEN NEEDLE) 31 gauge x 5/16 Use one needle per dose. 6x per day. Increased amount. On sliding scale + 5 injections per day metFORMIN ER (GLUCOPHAGE XR) 500 mg 24 hr tablet Take 2 tablets by mouth twice daily before meals. loratadine (CLARITIN) 10 mg tablet Take 1 tablet by mouth once daily. For post nasal drip blood sugar diagnostic (BLOOD GLUCOSE TEST) test strip Test blood sugar(s) 6 to 7 times daily. Dx: Type 2 DM - Uncontrolled E11.65 Z79.4 Insulin: Yes Lancing Device (BD LANCET DEVICE) [facility] [place] 1 lancet device. May give generic. Dx: E11.9 azithromycin (ZITHROMAX) 250 mg tablet Take 2 tablets by mouth once daily for 1 day, THEN 1 tablet once daily for 4 days. predniSONE (DELTASONE) 20 mg tablet Take 1 tablet by mouth once daily for 4 days. Take daily with food. mometasone-formoterol (DULERA) 200-5 mcg/actuation inhaler Inhale 1 Puff as instructed twice daily. ARIPiprazole (ABILIFY) 10 mg tablet Take 10 mg by mouth once daily. FAMILY HISTORY Problem Relation Age of Onset Hypertension Mother other (brain aneurysm) Mother 50 Hypertension Father Diabetes Father Heart Father Hypertension Maternal Grandmother Cancer Maternal Grandmother Throat, kidney, breast Heart Maternal Grandmother Mi X 3 Stroke Maternal Grandmother Hypertension Maternal Grandfather Diabetes Paternal Grandmother and High Cholesterol Stroke Paternal Grandmother Cataract Paternal Grandmother Cancer Paternal Grandmother Kidney, liver, lung other (High Cholesterol) Paternal Grandfather other (Kidney Failure) Paternal Grandfather Social History Tobacco Use Smoking status: Current Some Day Smoker Types: Cigars Smokeless tobacco: Never Used Tobacco comment: smokes cigars 4 per day Substance Use Topics Alcohol use: No Drug use: No Objective Physical Exam Vitals and nursing note reviewed. Constitutional: Appearance: She is obese. HENT: Right Ear: Ear canal and external ear normal. A middle ear effusion is present. Tympanic membrane is injected. Left Ear: Tympanic membrane, ear canal and external ear normal. Nose: Nose normal. Mouth/Throat: Pharynx: Uvula midline. No oropharyngeal exudate or posterior oropharyngeal erythema. Cardiovascular: Rate and Rhythm: Normal rate and regular rhythm. Heart sounds: Normal heart sounds. Pulmonary: Effort: Pulmonary effort is normal. No respiratory distress. Breath sounds: Examination of the right-upper field reveals wheezing. Examination of the left-upperfield reveals wheezing. Wheezing present. No rales. Musculoskeletal: Cervical back: Neck supple. Lymphadenopathy: Cervical: No cervical adenopathy. Skin: General: Skin is warm and dry. Findings: No erythema or rash. Neurological: Mental Status: She is alert. ASSESSMENT/PLAN: 1. Other acute nonsuppurative otitis media of right ear, recurrence not specified - ICD9: 381.00, ICD10: H65.191 (primary diagnosis) - Will begin treatment with Zithromax pack as directed - AZITHROMYCIN 250 MG TABLET 2. Viral bronchitis - ICD9: 466.0, ICD10: J20.8 - offered COVID/Flu testing, patient declined (as she does think she has COVID) - PREDNISONE 20 MG TABLET - ALBUTEROL SULFATE HFA 90 MCG/ACTUATION AEROSOL INHALER - Follow-up with your PCP in 3-5 days if symptoms have not improved or sooner if symptoms worsen - Discussed red flags and need for immediate medical evaluation if any occur. - Discussed supportive care treatment with fluids, rest and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 abuse patient.[facility] the event this information is protected by the Federal Confidentiality of Alcohol and Drug Abuse Patient Records regulations: The Federal rules restrict any use of the information to criminally investigate or prosecute any alcohol or drug abuse patient.[facility] the event this information is protected by the Federal Confidentiality of Alcohol and Drug Abuse Patient Records regulations: The Federal rules restrict any use of the information to criminally investigate or prosecute any alcohol or drug abuse patient.[facility] the event this information is protected by the Federal Confidentiality of Alcohol and Drug Abuse Patient Records regulations: The Federal rules restrict any use of the information to criminally investigate or prosecute any alcohol or drug abuse patient.[facility] the event this information is protected by the Federal Confidentiality of Alcohol and Drug Abuse Patient Records regulations: The Federal rules restrict any use of the information to criminally investigate or prosecute any alcohol or drug abuse patient.[facility] the event this information is protected by the Federal Confidentiality of Alcohol and Drug Abuse Patient Records regulations: The Federal rules restrict any use of the information to criminally investigate or prosecute any alcohol or drug abuse patient.[facility]In the event this information is protected by the Federal Confidentiality of Alcohol and Drug Abuse Patient Records regulations: The Federal rules restrict any use of the information to criminally investigate or prosecute any alcohol or drug abuse patient.[facility]In the event this information is protected by the Federal Confidentiality of Alcohol and Drug Abuse Patient Records regulations: The Federal rules restrict any use of the information to criminally investigate or prosecute any alcohol or drug abuse patient.[facility] the event this information is protected by the Federal Confidentiality of Alcohol and Drug Abuse Patient Records regulations: The Federal rules restrict any use of the information to criminally investigate or prosecute any alcohol or drug abuse patient.[facility]In the event this information is protected by the Federal Confidentiality of Alcohol and Drug Abuse Patient Records regulations: The Federal rules restrict any use of the information to criminally investigate or prosecute any alcohol or drug abuse patient.[facility]In the event this information is protected by the Federal Confidentiality of Alcohol and Drug Abuse Patient Records regulations: The Federal rules restrict any use of the information to criminally investigate or prosecute any alcohol or drug abuse patient.[facility]In the event this information is protected by the Federal Confidentiality of Alcohol and Drug Abuse Patient Records regulations: The Federal rules restrict any use of the information to criminally investigate or prosecute any alcohol or drug abuse patient.[facility]In the event this information is protected by the Federal Confidentiality of Alcohol and Drug Abuse Patient Records regulations: The Federal rules restrict any use of the information to criminally investigate or prosecute any alcohol or drug abuse patient.[facility]In the event this information is protected by the Federal Confidentiality of Alcohol and Drug Abuse Patient Records regulations: The Federal rules restrict any use of the information to criminally investigate or prosecute any alcohol or drug abuse patient.[facility] HospitalIn the event this information is protected by the Federal Confidentiality of Alcohol and Drug Abuse Patient Records regulations: The Federal rules restrict any use of the information to criminally investigate or prosecute any alcohol or drug abuse patient.[facility] HospitalIn the event this information is protected by the Federal Confidentiality of Alcohol and Drug Abuse Patient Records regulations: The Federal rules restrict any use of the information to criminally investigate or prosecute any alcohol or drug abuse patient.[facility] HospitalIn the event this information is protected by the Federal Confidentiality of Alcohol and Drug Abuse Patient Records regulations: The Federal rules restrict any use of the information to criminally investigate or prosecute any alcohol or drug abuse patient.[facility] HospitalIn the event this information is protected by the Federal Confidentiality of Alcohol and Drug Abuse Patient Records regulations: The Federal rules restrict any use of the information to criminally investigate or prosecute any alcohol or drug abuse patient.[facility] HospitalIn the event this information is protected by the Federal Confidentiality of Alcohol and Drug Abuse Patient Records regulations: The Federal rules restrict any use of the information to criminally investigate or prosecute any alcohol or drug abuse patient.[facility] HospitalIn the event this information is protected by the Federal Confidentiality of Alcohol and Drug Abuse Patient Records regulations: The Federal rules restrict any use of the information to criminally investigate or prosecute any alcohol or drug abuse patient.[facility] HospitalIn the event this information is protected by the Federal Confidentiality of Alcohol and Drug Abuse Patient Records regulations: The Federal rules restrict any use of the information to criminally investigate or prosecute any alcohol or drug abuse patient.[facility] HospitalIn the event this information is protected by the Federal Confidentiality of Alcohol and Drug Abuse Patient Records regulations: The Federal rules restrict any use of the information to criminally investigate or prosecute any alcohol or drug abuse patient.[facility] HospitalIn the event this information is protected by the Federal Confidentiality of Alcohol and Drug Abuse Patient Records regulations: The Federal rules restrict any use of the information to criminally investigate or prosecute any alcohol or drug abuse patient.[facility] HospitalIn the event this information is protected by the Federal Confidentiality of Alcohol and Drug Abuse Patient Records regulations: The Federal rules restrict any use of the information to criminally investigate or prosecute any alcohol or drug abuse patient.[facility] HospitalIn the event this information is protected by the Federal Confidentiality of Alcohol and Drug Abuse Patient Records regulations: The Federal rules restrict any use of the information to criminally investigate or prosecute any alcohol or drug abuse patient.[facility] HospitalIn the event this information is protected by the Federal Confidentiality of Alcohol and Drug Abuse Patient Records regulations: The Federal rules restrict any use of the information to criminally investigate or prosecute any alcohol or drug abuse patient.[facility] HospitalIn the event this information is protected by the Federal Confidentiality of Alcohol and Drug Abuse Patient Records regulations: The Federal rules restrict any use of the information to criminally investigate or prosecute any alcohol or drug abuse patient.[facility] HospitalIn the event this information is protected by the Federal Confidentiality of Alcohol and Drug Abuse Patient Records regulations: The Federal rules restrict any use of the information to criminally investigate or prosecute any alcohol or drug abuse patient.[facility] HospitalIn the event this information is protected by the Federal Confidentiality of Alcohol and Drug Abuse Patient Records regulations: The Federal rules restrict any use of the information to criminally investigate or prosecute any alcohol or drug abuse patient.[facility] HospitalIn the event this information is protected by the Federal Confidentiality of Alcohol and Drug Abuse Patient Records regulations: The Federal rules restrict any use of the information to criminally investigate or prosecute any alcohol or drug abuse patient.[facility] HospitalIn the event this information is protected by the Federal Confidentiality of Alcohol and Drug Abuse Patient Records regulations: The Federal rules restrict any use of the information to criminally investigate or prosecute any alcohol or drug abuse patient.[facility] HospitalIn the event this information is protected by the Federal Confidentiality of Alcohol and Drug Abuse Patient Records regulations: The Federal rules restrict any use of the information to criminally investigate or prosecute any alcohol or drug abuse patient.[facility] HospitalIn the event this information is protected by the Federal Confidentiality of Alcohol and Drug Abuse Patient Records regulations: The Federal rules restrict any use of the information to criminally investigate or prosecute any alcohol or drug abuse patient.[facility] HospitalIn the event this information is protected by the Federal Confidentiality of Alcohol and Drug Abuse Patient Records regulations: The Federal rules restrict any use of the information to criminally investigate or prosecute any alcohol or drug abuse patient.[facility] HospitalIn the event this information is protected by the Federal Confidentiality of Alcohol and Drug Abuse Patient Records regulations: The Federal rules restrict any use of the information to criminally investigate or prosecute any alcohol or drug abuse patient.[facility] HospitalIn the event this information is protected by the Federal Confidentiality of Alcohol and Drug Abuse Patient Records regulations: The Federal rules restrict any use of the information to criminally investigate or prosecute any alcohol or drug abuse patient.[facility] HospitalIn the event this information is protected by the Federal Confidentiality of Alcohol and Drug Abuse Patient Records regulations: The Federal rules restrict any use of the information to criminally investigate or prosecute any alcohol or drug abuse patient.[facility] HospitalIn the event this information is protected by the Federal Confidentiality of Alcohol and Drug Abuse Patient Records regulations: The Federal rules restrict any use of the information to criminally investigate or prosecute any alcohol or drug abuse patient.[facility] HospitalIn the event this information is protected by the Federal Confidentiality of Alcohol and Drug Abuse Patient Records regulations: The Federal rules restrict any use of the information to criminally investigate or prosecute any alcohol or drug abuse patient.[facility] HospitalIn the event this information is protected by the Federal Confidentiality of Alcohol and Drug Abuse Patient Records regulations: The Federal rules restrict any use of the information to criminally investigate or prosecute any alcohol or drug abuse patient.[facility] HospitalIn the event this information is protected by the Federal Confidentiality of Alcohol and Drug Abuse Patient Records regulations: The Federal rules restrict any use of the information to criminally investigate or prosecute any alcohol or drug abuse patient.[facility] HospitalIn the event this information is protected by the Federal Confidentiality of Alcohol and Drug Abuse Patient Records regulations: The Federal rules restrict any use of the information to criminally investigate or prosecute any alcohol or drug abuse patient.[facility] the event this information is protected by the Federal Confidentiality of Alcohol and Drug Abuse Patient Records regulations: The Federal rules restrict any use of the information to criminally investigate or prosecute any alcohol or drug abuse patient.[facility] HospitalIn the event this information is protected by the Federal Confidentiality of Alcohol and Drug Abuse Patient Records regulations: The Federal rules restrict any use of the information to criminally investigate or prosecute any alcohol or drug abuse patient.[facility] HospitalIn the event this information is protected by the Federal Confidentiality of Alcohol and Drug Abuse Patient Records regulations: The Federal rules restrict any use of the information to criminally investigate or prosecute any alcohol or drug abuse patient.[facility] HospitalIn the event this information is protected by the Federal Confidentiality of Alcohol and Drug Abuse Patient Records regulations: The Federal rules restrict any use of the information to criminally investigate or prosecute any alcohol or drug abuse patient.[facility] HospitalIn the event this information is protected by the Federal Confidentiality of Alcohol and Drug Abuse Patient Records regulations: The Federal rules restrict any use of the information to criminally investigate or prosecute any alcohol or drug abuse patient.[facility] HospitalIn the event this information is protected by the Federal Confidentiality of Alcohol and Drug Abuse Patient Records regulations: The Federal rules restrict any use of the information to criminally investigate or prosecute any alcohol or drug abuse patient.[facility] HospitalIn the event this information is protected by the Federal Confidentiality of Alcohol and Drug Abuse Patient Records regulations: The Federal rules restrict any use of the information to criminally investigate or prosecute any alcohol or drug abuse patient.[facility] HospitalIn the event this information is protected by the Federal Confidentiality of Alcohol and Drug Abuse Patient Records regulations: The Federal rules restrict any use of the information to criminally investigate or prosecute any alcohol or drug abuse patient.[facility] HospitalIn the event this information is protected by the Federal Confidentiality of Alcohol and Drug Abuse Patient Records regulations: The Federal rules restrict any use of the information to criminally investigate or prosecute any alcohol or drug abuse patient.[facility] HospitalIn the event this information is protected by the Federal Confidentiality of Alcohol and Drug Abuse Patient Records regulations: The Federal rules restrict any use of the information to criminally investigate or prosecute any alcohol or drug abuse patient.[facility] HospitalIn the event this information is protected by the Federal Confidentiality of Alcohol and Drug Abuse Patient Records regulations: The Federal rules restrict any use of the information to criminally investigate or prosecute any alcohol or drug abuse patient.[facility] HospitalIn the event this information is protected by the Federal Confidentiality of Alcohol and Drug Abuse Patient Records regulations: The Federal rules restrict any use of the information to criminally investigate or prosecute any alcohol or drug abuse patient.[facility] HospitalIn the event this information is protected by the Federal Confidentiality of Alcohol and Drug Abuse Patient Records regulations: The Federal rules restrict any use of the information to criminally investigate or prosecute any alcohol or drug abuse patient.[facility] HospitalIn the event this information is protected by the Federal Confidentiality of Alcohol and Drug Abuse Patient Records regulations: The Federal rules restrict any use of the information to criminally investigate or prosecute any alcohol or drug abuse patient.[facility] HospitalIn the event this information is protected by the Federal Confidentiality of Alcohol and Drug Abuse Patient Records regulations: The Federal rules restrict any use of the information to criminally investigate or prosecute any alcohol or drug abuse patient.[facility] HospitalIn the event this information is protected by the Federal Confidentiality of Alcohol and Drug Abuse Patient Records regulations: The Federal rules restrict any use of the information to criminally investigate or prosecute any alcohol or drug abuse patient.[facility] HospitalIn the event this information is protected by the Federal Confidentiality of Alcohol and Drug Abuse Patient Records regulations: The Federal rules restrict any use of the information to criminally investigate or prosecute any alcohol or drug abuse patient.[facility] HospitalIn the event this information is protected by the Federal Confidentiality of Alcohol and Drug Abuse Patient Records regulations: The Federal rules restrict any use of the information to criminally investigate or prosecute any alcohol or drug abuse patient.[facility] HospitalIn the event this information is protected by the Federal Confidentiality of Alcohol and Drug Abuse Patient Records regulations: The Federal rules restrict any use of the information to criminally investigate or prosecute any alcohol or drug abuse patient.[facility] HospitalIn the event this information is protected by the Federal Confidentiality of Alcohol and Drug Abuse Patient Records regulations: The Federal rules restrict any use of the information to criminally investigate or prosecute any alcohol or drug abuse patient.[facility] HospitalIn the event this information is protected by the Federal Confidentiality of Alcohol and Drug Abuse Patient Records regulations: The Federal rules restrict any use of the information to criminally investigate or prosecute any alcohol or drug abuse patient.[facility] HospitalIn the event this information is protected by the Federal Confidentiality of Alcohol and Drug Abuse Patient Records regulations: The Federal rules restrict any use of the information to criminally investigate or prosecute any alcohol or drug abuse patient.[facility] HospitalIn the event this information is protected by the Federal Confidentiality of Alcohol and Drug Abuse Patient Records regulations: The Federal rules restrict any use of the information to criminally investigate or prosecute any alcohol or drug abuse patient.[facility] HospitalIn the event this information is protected by the Federal Confidentiality of Alcohol and Drug Abuse Patient Records regulations: The Federal rules restrict any use of the information to criminally investigate or prosecute any alcohol or drug abuse patient.[facility] HospitalIn the event this information is protected by the Federal Confidentiality of Alcohol and Drug Abuse Patient Records regulations: The Federal rules restrict any use of the information to criminally investigate or prosecute any alcohol or drug abuse patient.[facility] HospitalIn the event this information is protected by the Federal Confidentiality of Alcohol and Drug Abuse Patient Records regulations: The Federal rules restrict any use of the information to criminally investigate or prosecute any alcohol or drug abuse patient.[facility] HospitalIn the event this information is protected by the Federal Confidentiality of Alcohol and Drug Abuse Patient Records regulations: The Federal rules restrict any use of the information to criminally investigate or prosecute any alcohol or drug abuse patient.[facility] Reason for Visit (unrecogniz ed section and content) Specialty Diagnoses / Procedures Referred By Devin cano Referred To Contact GENERAL SURGERY Diagnoses abcess Procedures abcess Self Gens Formerly [facility] [address] [place] [place] [address] Referral ID Status Reason Start Date Expiration Date Visits Requested Visits Authorized [id number] Outside PCP OON/Self Pay Override 05/07/2023 11/03/2023 1 1 Reason Comments Cough fever, sore throat a nd weakness x 1 weeks Reason Comments diabetes education program follow up Reason Comments Toothache Reason Comments Rash arm and legs, itchin g x 1 day Reason Comments diabetes ed follow up Reason Comments Patient Update Reason Comments Refill Request Reason Comments Appointment Reason Comments Procedure Reason Comments Consult Specialty Diagnoses / Procedures Referred By Devin cano Referred To Contact Neurology Diagnoses Dysautonomia (HCC) Procedures CONSULT TO NEUROLOGY OFFICE/OUTPATIENT NEW HIGH MDM 60-74 MINUTES Dorothy Stephenson MD [address] [place] [address] Referral ID Status Reason Start Date Expiration Date V isits Requested Visits Authorized [id number] Closed PCP Requested Referral 06/23/2022 06/23/2023 1 1 Reason Comments New Diabetic Foot Check Reason Comments Consult Stomach issues Reason Comments Follow Up Cutaneous abscess of buttock Reason Comments BP 24 Hour Monitor Evaluation Reason Comments Information Reason Onset Date Comments Refill Request 12/11/2022 Reason Comments Consult New Patient Reason Comments Orders Reason Comments deep crack on right thumb X 2 months-won 't heal Reason Comments Medication Problem Reason Onset Date Comments Refill Request 02/28/2023 Reason Comments Outside Lab Results Reason Comments right arm and tailbone pain Hit a metal plate with right forearm 5 hours ago and fell and injured tailbone 3 weeks ago Reason Comments Right ulnar shaft fracture REF: C. [facility] x-ray: 03/08/2023 Reason Comments Arm Injury 1 week 1 day post ri ght ulna shaft fracture. Xrays taken today. Reason Comments Arm Pain right arm pain-fract ured and had several altercations today Reason Comments No Show Reason Comments Appointment Patient Update Reason Comments 1 week follow up right ulnar fracture Reason Comments Established Patient Right ulnar displace d fracture new xrays taken 03/21/23 Fracture Right ulnar displace d fracture new xrays taken 03/21/23 Reason Comments Established Patient 7 weeks post fx righ t ulna - see telephone encounter 04/23/2023Xray 04/26/2023 Reason Comments Weakness Reason Comments Radiology NM Specialty Diagnoses / Procedures Referred By Contac t Referred To Contact MOLECULAR & FUNCTIONAL IMAGING Diagnoses Gastroparesis Procedures NM GASTRIC EMPTYING SOLID GASTRIC EMPTYING STUDY Renata Constantino DO [address] [place] [address] Molecular & Functional Imaging [address] [place] [address] Referral ID Status Reason Start Date Expiration Date V isits Requested Visits Authorized [id number] Closed Auto-Generate d Referral 09/05/2022 10/05/2023 1 1 Specialty Diagnoses / Procedures Referred By Contac t Referred To Contact MR IMAGING Diagnoses Paresthesia of skin Procedures MRI THORACIC SPINE WO/W IVCON MRI SPINAL CANAL THORACIC W/O & W/CONTR MATRL Dorothy Stephenson MD [address] [place] [address] [facility] [place] [address] Referral ID Status Reason Start Date Expiration Date V isits Requested Visits Authorized [id number] Closed Auto-Generate d Referral 05/22/2022 06/21/2023 1 1 Reason Comments Follow Up Reason Comments UTI Burning wit urinatio n x3 weeks Reason Comments Research [id number] Research Stud y Care Teams (unrecognized sec tion and content) 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 Relationship Specialty Start Date End Date Fartun Murrell MD [address] [place] [address] PCP - General Internal Medicine 08/04/16 Gema Shirley radha [address] [place] [address] Pharmacist Pharmacy 06/22/21 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 [address] [facility] [place] [address] Pharmacist Pharmacy 06/22/21 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 Relationship Specialty Start Date End Date Fartun Murrell MD [address] [facility] [place] [address] PCP - General Internal Medicine 08/04/16 Gema Shirley, [facility] [address] [facility] [place] [address] Pharmacist Pharmacy 06/22/21 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 Relationship Specialty Start Date End Date Fartun Murrell MD [address] [facility] [place] [address] PCP - General Internal Medicine 08/04/16 Gema Shirley, [facility] [address] [facility] [place] [address] Pharmacist Pharmacy 06/22/21 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 Relationship Specialty Start Date End Date Can Anderson PCP - General 07/13/22 Gema Shirley, RPh [address] [place] [address] Pharmacist Pharmacy 06/22/21 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 Relationship Specialty Start Date End Date Can Anderson PCP - General 07/13/22 Gema Shirley, RPh [address] [facility] [place] [address] Pharmacist Pharmacy 06/22/21 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 Relationship Specialty Start Date End Date OleBartolo rossn PCP - General 07/13/22 Gema Shirley, RPh [address] [facility] [place] [address] Pharmacist Pharmacy 06/22/21 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 Relationship Specialty Start Date End Date Bartolo Andersonn PCP - General 07/13/22 Gema Shirley, RPh [address] [facility] [place] [address] Pharmacist Pharmacy 06/22/21 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 Relationship Specialty Start Date End Date Bartolo Andersonn PCP - General 07/13/22 Gema Shirley, RPh [address] [facility] [place] [address] Pharmacist Pharmacy 06/22/21 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 Relationship Specialty Start Date End Date Bartolo Andersonn PCP - General 07/13/22 Gema Shirley, RPh [address] [facility] [place] [address] Pharmacist Pharmacy 06/22/21 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 Relationship Specialty Start Date End Date Bartolo Andersonn PCP - General 07/13/22 Gema Shirley, RPh [address] [facility] [place] [address] Pharmacist Pharmacy 06/22/21 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 Relationship Specialty Start Date End Date Bartolo Andersonn PCP - General 07/13/22 Gema Shirley, RPh [address] [facility] [place] [address] Pharmacist Pharmacy 06/22/21 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 Relationship Specialty Start Date End Date OleBartolo rossn PCP - General 07/13/22 Gema Shirley, [facility] [address] [facility] [place] [address] Pharmacist Pharmacy 06/22/21 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 Relationship Specialty Start Date End Date OleBartolo rossn PCP - General 07/13/22 Gema Shirley, [facility] [address] [facility] [place] [address] Pharmacist Pharmacy 06/22/21 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 Relationship Specialty Start Date End Date OleBartolo rossn PCP - General 07/13/22 Gema Shirley, [facility] [address] [facility] [place] [address] Pharmacist Pharmacy 06/22/21 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 Relationship Specialty Start Date End Date OleBartolo rossn PCP - General 07/13/22 Gema Shirley, [facility] [address] [facility] [place] [address] Pharmacist Pharmacy 06/22/21 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 Relationship Specialty Start Date End Date Bartolo Andersonn PCP - General 07/13/22 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 Relationship Specialty Start Date End Date Olecody, Bartolon PCP - General 07/13/22 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 Relationship Specialty Start Date End Date Olejranjeet, Bartolon PCP - General 07/13/22 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 Relationship Specialty Start Date End Date Olejhe, Enocjen PCP - General 07/13/22 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 Relationship Specialty Start Date End Date Fartun Murrell MD [address] [facility] [place] [address] PCP - General Internal Medicine 08/04/16 07/12/22 Olecody, Bartolon PCP - General 07/13/22 Gema Shirley, [facility] [address] [facility] [place] [address] Pharmacist Pharmacy 06/22/21 01/04/23 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 Relationship Specialty Start Date End Date Olejranjeet, Bartolon PCP - General 07/13/22 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 Relationship Specialty Start Date End Date Olejhe, Ifijen PCP - General 07/13/22 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 Relationship Specialty Start Date End Date Olejhe, Ifijen PCP - General 07/13/22 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 Relationship Specialty Start Date End Date Olejhe, Ifijen PCP - General 07/13/22 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 Relationship Specialty Start Date End Date Olejhe, Ifijen PCP - General 07/13/22 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 Relationship Specialty Start Date End Date Olejhe, Ifijen PCP - General 07/13/22 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 Relationship Specialty Start Date End Date Olejhe, Ifijen PCP - General 07/13/22 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 Relationship Specialty Start Date End Date Olejhe, Ifijen PCP - General 07/13/22 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 Relationship Specialty Start Date End Date Olejhe, Ifijen PCP - General 07/13/22 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 Relationship Specialty Start Date End Date Olejhe, Ifijen PCP - General 07/13/22 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 Relationship Specialty Start Date End Date Olejhe, Ifijen PCP - General 07/13/22 Gema Shirley [facility] Pharmacist Pharmacy 06/22/21 01/04/23 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 Relationship Specialty Start Date End Date Olecody, Bartolon PCP - General 07/13/22 [facility] 06/22/21 01/04/23 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 Relationship Specialty Start Date End Date Olejranjeet, Bartolon PCP - General 07/13/22 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 Relationship Specialty Start Date End Date Fartun Murrell MD [address] [place] [address] PCP - General Internal Medicine 08/04/16 07/12/22 [facility] [address] [place] [address] Pharmacist Pharmacy 06/22/21 01/04/23 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 Relationship Specialty Start Date End Date Can Anderson PCP - General 07/13/22 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 Relationship Specialty Start Date End Date Can Anderson PCP - General 07/13/22 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 Relationship Specialty Start Date End Date Can Anderson PCP - General 07/13/22 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 Relationship Specialty Start Date End Date James Real DO [address] [facility] [place] [address] PCP - General Family Medicine 07/03/23 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 Relationship Specialty Start Date End Date James Real DO [address] [place] [address] PCP - General Family Medicine 07/03/23 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 Relationship Specialty Start Date End Date James Real DO [address] [facility] [place] [address] PCP - General Family Medicine 07/03/23 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 Relationship Specialty Start Date End Date James Real DO [address] [facility] [place] [address] PCP - General Family Medicine 07/03/23 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 Relationship Specialty Start Date End Date James Real DO [address] [facility] [place] [address] PCP - General Family Medicine 07/03/23 INFORMATION SOURCE (unrecogn ized section and content) DATE CREATED AUTHOR AUTHOR'S ORGANIZ ATION 07/24/2023 [facility]ly [facility] ([place]) DATE CREATED AUTHOR AUTHOR'S ORGANIZ ATION 08/18/2023 [facility] FOR RECORDS PERTAINING TO PATIENTS WHO ARE OR HAVE BEEN ENROLLED IN A CHEMICAL DEPENDENCY/SUBSTANCEABUSE PROGRAM, SOME INFORMATION MAY BE OMITTED. This clinical summary was aggregated from multiple sources. Caution should be exercised in using it in the provision of clinical care. This summary normalizes information from multiple sources, and as a consequence, information in this document may materially change the coding, format and clinical context of patient data. In addition, data may be omitted in some cases. CLINICAL DECISIONS SHOULD BE BASED ON THE PRIMARY CLINICAL RECORDS. [employer] [facility]. provides no warranty or guarantee of the accuracy or completeness of information in this document.
[2023-08-19 22:52] LABS: Absolute Lymphocyte Count 2.17 X10^3/uL (0.83-4.51); Absolute Neutrophil Count 6.1 X10^3/uL (2.0-7.7); Basophil# 0.05 X10^3/uL; Basophil% 0.5 % (0-1); Eosinophil# 0.26 X10^3/uL; Eosinophils% 2.8 % (0-5); Hematocrit 37.8 % (37-47); Hemoglobin 13.4 g/dL (12.0-15.0); Lymphocyte # 2.17 X10^3/ul (0.83-4.51); Lymphocyte % 23.8 % (19-41); Mean Corp Hgb Conc 35.4 g/dL (32-36); Mean Corpuscular Hgb 29.8 pg (27.0-32.0); Mean Corpuscular Volume 84.2 fL (81-99); Mean Platelet Vol. 12.6 fl (6.2-12.0); Monocyte# 0.58 X10^3/uL; Monocyte% 6.4 % (0-10); NRBC Flagged by Analyzer 0 % (0-5); Neutrophil # 6.05 X10^3/uL (2.7-7.7); Neutrophil % 66.3 % (47-70); Platelet Count 127 K/mm3 (150-450); RBC Distribution Width CV 13.4 % (11.6-14.6); RBC Distribution Width SD 41.2 fl (35.1-43.9); Red Blood Count 4.49 M/mm3 (4.2-5.4); White Blood Count 9.1 K/mm3 (4.4-11.0)
[2023-08-19 22:53] LABS: Bacteria 0 SEEN /hpf (None Seen); Mucous, Urine 0 SEEN /hpf (<or=2+); White Blood Cells 0 SEEN /hpf (0-5)
[2023-08-19 22:54] LABS: Color, Urine Yellow (Yellow); Glucose, Dipstick 1000 mg/dl (Normal); Ketone-Dipstick Negative (Negative); Leukocyte Esterase-Dipstick Negative /ul (Negative); Nitrite-Dipstick Negative (Negative); Occult Blood-Urine 10 /ul (Negative); Protein-Dipstick Negative (Negative); Urine Bilirubin Dipstick Negative (Negative); Urine Clarity Clear (Clear); Urine Urobilinogen Normal (Normal)
[2023-08-19 23:00] LABS: Red Blood Cells-Urine 0-5 SEEN /hpf (0-5); Squamous Epithelial Cells - UA 0-5 SEEN /hpf (5-10)
[2023-08-19 23:19] LABS: Anion Gap 10 (5-15); BUN 13 mg/dL (7-18); BUN/Creat Ratio 13.1 RATIO (10-20); Chloride 101 mmol/L (98-107); Creatinine, Serum 0.99 mg/dL (0.55-1.02); EST Glomerular Filtration Rate 66 mL/min (>60); Est Glom Filt Rate - Afr Amer 80 mL/min (>60); Estimated Creatinine Clearance 92.37 ml/min; Glucose 627 mg/dL (74-106); Lactic Acid 2.3 mmol/L (0.4-1.9); Potassium 4.6 mmol/L (3.5-5.1); Sodium Level 131 mmol/L (136-145)
[2023-08-19] MEDS: Clindamycin 900 MG/50 ML BAG 75 MG IV (23:35)
[2023-08-19] MEDS: Insulin Lispro 100 UNIT/ML INSULN.PEN 15 UNIT SC (23:40)
[2023-08-20 02:49] LABS: Reflex Lactate? Y
== END 2023-08-20 01:47 | disposition home or self-care (01) ==
PROVIDERS: Emergency Provider Emergency Medicine; Visit Provider Emergency Medicine
DX: N76.2 Acute vulvitis (principal); E11.42 Type 2 diabetes mellitus with diabetic polyneuropathy; E11.9 Type 2 diabetes mellitus without complications; F17.200 Nicotine dependence, unspecified, uncomplicated; I10 Essential (primary) hypertension; Z79.85 Long-term (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 of injectable non-insulin antidiabetic drugs; Z79.84 Long term (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 of oral hypoglycemic drugs
CPT/HCPCS: 80048; 81001; 83605; 85025; 99282; J7050; A4216

== ENCOUNTER 2023-11-13 08:00 | Outpatient (RCR) | payer MEDICARE, SELFPAY ==
--- NOTE | 2023-11-13 09:05 | BH.SGPN.GN ---
Behaviors/Verbalizations/Mental Status: [] Eye contact is poor. Motor activity is appropriate. Appearance is casual. Speech is Appropriate. Mood is anxious. Affect is congruent. Thoughts are linear and logical. No evidence of psychosis. Reviewed daily check in sheet and no reports 3/5 for suicidal thoughts and 0/5 for intent. Completed [facility] Screening prior to group. Client Response/Progress/Benefit: [] Participate when prompted. Attentive. Daily symptom tracker notes 5/5 for depression and irritability and 4/5 for anxiety. Today was pt's first day in IOP level of care and she briefly introduced herself. I want to be more stable in my emotions. She did not elaborate any further. Group provided support and feedback/advice for her first day in the program which was beneficial. Will continue in IOP to maintain safety, stabilize mood, prevent decompensation, and increase functioniong. Narrative Note: []
--- NOTE | 2023-11-13 11:15 | BH.SGPN.GN ---
Behaviors/Verbalizations/Mental Status: []Pt alert and oriented, casually dressed and groomed. Eye contact good. Motor activity appropriate. Speech within normal limits. Affect congruent, mood anxious and depressed. Thoughts linear, logical, no signs of hallucinations or delusions. Client Response/Progress/Benefit: [] Pt engaged participant AEB listening attentively to others and providing input throughout group. Pt worked within their small group to identify strategies to manage inappropriate guilt. Identified a personal example of inappropriate guilt as blaming herself for saying no to a request she couldn't do. Insight this cues a fear of disappointing others, someone else not getting their needs met, and rejection. Pt wants to work on combatting inappropriate guilt by challenging distortions, maintaining her boundaries, and focusing on self-care. Pt seemed to benefit from learning about strategies to manage appropriate and inappropriate guilt. Pt will continue IOP tx to promote mood stability, increase coping skill repertoire, and prevent decompensation. Narrative Note: []
--- NOTE | 2023-11-13 12:18 | BH.MTP ---
Master Treatment Plan Patient Information Program Physician:: Dr. Beulah Arana Primary Therapist:: Tamy GONZALEZ Psychiatric Diagnoses Psychiatric Diagnoses:: Bipolar 1 disorder, most recent episode depression, severe without psychosis (F31.4); PTSD; ADHD; Borderline personality disorder; Panic disorder Diagnosis Code(s):: F 31.4 Estimated LOS Estimated LOS (in weeks):: 6 Problem/Goal #1 Problem/Goal #1 Stated Goal:: Pt will reduce depressive symptoms, negative self-talk, thoughts of , hopelessness, and anger through IOP Services. Description of Barriers: Pt has type II diabetes with many complications and she has numerous health issues. Pt does not have many supports and she is in the process of leaving a toxic relationship. Pt is currently on probation for a drug charge. Pt also has history of canceling IOP intakes so there is a concern about pt's IOP attendance. Functional Impact: Pt is a 38-year-old female with a history of bipolar I disorder, PTSD and borderline personality disorder by patient self-report who was referred to IOP by herself and her driver license reviewing officer. Pt was referred for worsening symptoms of depression and mood instability. Pt feels unable to control my emotions. Pt currently endorses sadness, crying, low motivation, isolation, anger outbursts, hopelessness, worthlessness, anhedonia, fear of sleeping, low energy, decreased concentration and guilt. Pt also reports to passive, fleeting suicidal ideation and thoughts of . Pt denies active suicidal ideation, plan for suicide, homicidal ideation, hallucinations, delusions or being aware of symptoms of sharifa. Pt's mental health symptoms are impacting her daily functioning and quality of life. Goal Relevant Strengths/Supports: Pt has outpatient providers for medication management and counseling. Objectives Objective #1: Stated Objective: Pt will learn and utilize 2-3 healthy coping strategies to better manage depressive symptoms and reduce DSM-5 symptoms for depression, anger, and thoughts of . Interventions: Through group and individual sessions, therapist will help pt identify triggers and warning signs of depression and emotional dysregulation including emotional, physical, and behavioral changes. Therapist will teach pt various coping skills to manage her symptoms. Therapist will use cognitive restructuring techniques and help pt gain awareness of negative thoughts that reinforce depressive cycles. Therapist will help pt incorporate mindfulness and emotional regulation skills when dealing with difficult situations. Discharge Criteria: Pt will have met this goal when she can report learning and using at least 2 coping skills to manage depressive symptoms and her DSM-5 scores for depression, anger, and thoughts of have decreased. Target Date: 12/25/23 Review Date: 12/04/23 Status: open Objective #2: Stated Objective: Pt will increase motivation, reduce negative thinking patterns, and increase structure by accomplishing 2-3 small self-care goals a week. Interventions: Through group and individual sessions, pt will learn how to set small SMART goals to promote self-care and stress management. Therapist will provide education on stress and teach pt effective stress management strategies. Discharge Criteria: Pt will have accomplished this goal when can report accomplishing at least two small goals a week. Target Date: 12/25/23 Review Date: 12/04/23 Status: open Problem/Goal #2 Problem/Goal #2 Stated Goal:: Will reduce anxiety, panic, and PTSD symptoms through increasing emotional regulation and distress tolerance skills Description of Barriers: Pt has type II diabetes with many complications and she has numerous health issues. Pt does not have many supports and she is in the process of leaving a toxic relationship. Pt is currently on probation for a drug charge. Pt also has history of canceling IOP intakes so there is a concern about pt's IOP attendance. Functional Impact: Pt is a 38-year-old female with a history of bipolar I disorder, PTSD and borderline personality disorder by patient self-report who was referred to IOP by herself and her driver license reviewing officer. Pt was referred for worsening symptoms of depression and mood instability. Pt feels unable to control my emotions. Pt currently endorses sadness, crying, low motivation, isolation, anger outbursts, hopelessness, worthlessness, anhedonia, fear of sleeping, low energy, decreased concentration and guilt. Pt also reports to passive, fleeting suicidal ideation and thoughts of . Pt denies active suicidal ideation, plan for suicide, homicidal ideation, hallucinations, delusions or being aware of symptoms of sharifa. Pt's mental health symptoms are impacting her daily functioning and quality of life. Goal Relevant Strengths/Supports: Pt has outpatient providers for medication management and counseling. Objectives Objective #1: Stated Objective: Pt will increase ability to manage stressors and anxiety by gaining 2-3 distress tolerance skills. Interventions: Through group and individual therapy, pt will learn various coping skills to help manage stress and anxiety. Therapist will utilize DBT distress tolerance skills to increase awareness and give pt tools to more effectively manage anxiety. Therapist will provide psychoeducation on emotional regulation and help pt identify unhealthy coping skills she wants to change. Discharge Criteria: Pt will have accomplished this goal when can report improved ability to manage stressors and identify at least 2 distress tolerance skills. Target Date: 12/25/23 Review Date: 12/04/23 Status: open Objective #2: Stated Objective: Pt will identify 2-3 anxiety triggers and 2 coping skills to use when feeling anxious to manage anxiety as shown by reducing DSM-5 scores for anxiety Interventions: Therapist will provide education on anxiety, avoidance behaviors, and maintenance cycles. Therapist will help pt explore personal symptoms and warning signs of anxiety and irritability. Therapist will teach pt coping skills to improve emotional regulation, mindfulness, and distress tolerance to help pt cope with anxiety in the moment. Discharge Criteria: Pt will have accomplished this goal when he can identify at least 2 triggers and report using 2 coping skills to manage anxiety and irritability. Additionally, pt will have accomplished this goal AEB reduction of DSM-5 scores for anxiety. Target Date: 12/25/23 Review Date: 12/04/23 Status: open
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
[2023-11-14 09:48] VITALS: BP 155/105; PULSE 84
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
--- NOTE | 2023-11-14 12:28 | BH.DR.ITP ---
Initial Treatment Plan Patient Information Visit Information: ADMISSION DATE: EXPECTED LOS: 4-6 weeks Problems/Symptoms Problem #1:: Mood instability Symptom:: Depression, sadness, anger outbursts, irritability, hopelessness, worthlessness, anhedonia, biological disruption of sleep, low energy, decreased concentration, guilt, passive thoughts of , passive suicidal ideation Problem #2:: Anxiety Symptom:: Worry, rumination, panic attacks, hypervigilance, avoidance, nightmares
--- NOTE | 2023-11-16 10:17 | BH.COMM ---
Communication Note Communication with Client Communication Note: Pt canceled her scheduled IOP sessions today, 11/16/23.
--- NOTE | 2023-11-20 10:15 | BH.SGPN.GN ---
Behaviors/Verbalizations/Mental Status: [] Eye contact is fair. Motor activity is appropriate. Appearance is casual. Speech is Appropriate. Mood is anxious. Affect is constricted. Thoughts are linear and logical. No evidence of psychosis. Client Response/Progress/Benefit: []Pt engaged participant AEB listening to others, engaging in activity, and providing feedback at times. Attentive during psychoeducation and provided insight into obstacles that impede mental wellness. Pt shared with group current mental health reality and desired mental health reality. Stated she would like to get to a place where she can set boundaries, let go of the past, and allow people in her life that treat her kindly. Identified barriers to desired reality include: accepting less than she's worth, toxic people, lack of confidence, and poor boundaries. Benefited from taking look at current mental health state and obstacles for progress. Pt to continue IOP tx to improve mood stability, reduce over reliance on others, and prevent decompensation.
--- NOTE | 2023-11-20 11:15 | BH.SGPN.GN ---
Behaviors/Verbalizations/Mental Status: []Pt alert and oriented, casually dressed and groomed. Eye contact good. Motor activity appropriate. Speech within normal limits. Affect congruent, mood euthymic, anxious. Thoughts linear, logical, no signs of hallucinations or delusions. Client Response/Progress/Benefit: []Pt participated in group discussion and activity. Worked with group to identify strategies to help overcome barriers and obstacles to desired reality. Group developed strategies for the common barriers of avoidance, poor boundaries, unrealistic expectations, low self-confidence, and isolation. Identified personal barriers to desired reality and choose one obstacle to work on this week which was self-doubt. Pt plans to do this by reminding herself to practice using self-compassionate statements. Pt seemed to benefit from group by identifying obstacles and solutions to desired reality. Will continue IOP tx to prevent decompensation, improve coping repertoire, and improve daily functioning. ? Narrative Note: []
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
--- NOTE | 2023-11-23 09:00 | BH.SGPN.GN ---
Behaviors/Verbalizations/Mental Status: []Pt alert and oriented, disheveled appearance. Eye contact good. Motor activity appropriate. Speech within normal limits. Affect constricted- tearful at times, mood depressed. Thoughts linear, logical, no signs of hallucinations or delusions. Reviewed pt?s symptom tracker, no risk for suicidal ideation, plan, or intent 11/23/23. Client Response/Progress/Benefit: []Pt responded somewhat well to session, was engaged in icebreaker, but declined to share during daily check-in. Pt was tearful several times while peers but pt appeared to benefit from group connection and support. Pt reported she wanted to isolate today, but she showed up to IOP which is positive. Pt will continue IOP tx to prevent decompensation, improve daily functioning, and increase healthy coping skills. Narrative Note: []
--- NOTE | 2023-11-23 10:15 | BH.SGPN.GN ---
Behaviors/Verbalizations/Mental Status: [] Eye contact is avoidant. Motor activity is appropriate. Appearance is casual. Speech is Appropriate. Mood is depressed Affect is flat. Thoughts are linear and logical. No evidence of psychosis. Client Response/Progress/Benefit: [] Client was an active participant during interactive group discussions. Attentive during psychoeducation on the six types of boundaries (physical, emotional, intellectual, sexual, time, and material) AEB note-taking and nodding head in agreement to material. Peers contributed to interactive discussion on defining what a boundary is in mental health. Client along with peers identified challenges to setting boundaries which included; lack of self awareness, guilt, generational cycles, fear of disappointing the other person, etc. Client along with peers identified the benefits to setting boundaries such as increased identify of self, genuine relationships, self-care, and increased confidence. Group discussed the mental health benefits to establishing boundaries at work, school, and home. Client benefited from increased awareness and insight on the importance/benefit to setting health boundaries. Will continue in IOP to prevent decompensation, decrease negative self talk, and improve functioning. Narrative Note: []
--- NOTE | 2023-11-23 11:15 | BH.SGPN.GN ---
Behaviors/Verbalizations/Mental Status: [] Eye contact is good. Motor activity is appropriate. Appearance is casual. Speech is Appropriate. Mood is euthymic and depressed Affect is full. Thoughts are linear and logical. No evidence of psychosis. Client Response/Progress/Benefit: [] Client responded well to session AEB listening attentively to peers, providing some input, as well as taking notes throughout. Client contributed more throughout psychoeducation on different boundary setting styles which is progress as she has struggled to share in prior groups. Reports connecting most with porous style of boundary setting, identifying that they feel guilty saying no and often will get taken advantage of. Participated in group discussion brainstorming various strategies for improving healthy boundary settings, as a group identified practicing in a mirror, starting with easy/small boundaries, and not overly apologizing as strategies to try. Seemed to benefit from increased awareness of how different boundary styles can impact mental health. Will continue IOP tx to increase consistent application of skills, increase self-care and depression management, and prevent decompensation. Narrative Note: []
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
--- NOTE | 2023-11-28 10:10 | BH.SGPN.GN ---
Behaviors/Verbalizations/Mental Status: [] Eye contact is good. Motor activity is appropriate. Appearance is casual. Speech is Appropriate. Mood is depressed/anxious. Affect is congruent. Thoughts are linear and logical. No evidence of psychosis. Client Response/Progress/Benefit: [] Client participated when prompted. Attentive. Group identified types of social support (family, pets, professionals, spiritual, etc) and provided examples of benefits of having social support, including: decreased stress, increased self-esteem, encouragement, distraction, etc. Attentive during group discussion regarding the barriers to accessing support such as: lack of awareness, lack of trust, and low self-esteem. Client participated in experiential activity illustrating the impact communication, boundaries, and patience play in creating healthy support systems. Client appeared to benefit from increased knowledge of the benefits of social support and greater self-awareness. Will continue IOP to prevent decompensation, stabilize mood, and improve functioning. Narrative Note: []
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
--- NOTE | 2023-11-30 09:24 | BH.COMM ---
Communication Note Communication with Client Communication Note: Pt no called/no showed two days in a row. Therapist left pt a message. Pt denied any active SI when she was here on 11/28/23.
== END 2023-12-04 23:59 ==
LOC: BHIOP 08:00
PROVIDERS: Referring Provider Psychiatry & Neurology Psychiatry; Visit Provider Psychiatry & Neurology Psychiatry
DX: F31.4 Bipolar disorder, current episode depressed, severe, without psychotic features (principal); F43.10 Post-traumatic stress disorder, unspecified; F60.3 Borderline personality disorder; F90.9 Attention-deficit hyperactivity disorder, unspecified type; F41.0 Panic disorder [episodic paroxysmal anxiety]; E11.40 Type 2 diabetes mellitus with diabetic neuropathy, unspecified; E11.43 Type 2 diabetes mellitus with diabetic autonomic (poly)neuropathy; Z79.899 Other long term (current) drug therapy
CPT/HCPCS: S9480; 90832; 90853

== ENCOUNTER 2023-12-05 06:34 | Outpatient (RCR) | payer MEDICARE, SELFPAY ==
[2023-12-05 00:31] VITALS: BP 155/105; PULSE 84
--- NOTE | 2023-12-05 09:01 | BH.SGPN.GN ---
Behaviors/Verbalizations/Mental Status: [] Eye contact is good. Motor activity is appropriate. Appearance is casual. Speech is Appropriate. Mood anxious. Affect is constricted. Thoughts are linear and logical. No evidence of psychosis. Reviewed daily check in sheet and denies suicidal ideation, plan, or intention. Client Response/Progress/Benefit: [] Pt was an active participant in group discussions. Attentive. Patient reported mood today is anxious. Patient reported she went to court and it turned out really well for her because they are recognizing her treatment as a positive in regards to her sentencing. Patient stated additional mental positive has been keeping distance from her ex-boyfriend in which she recognizes as very healthy for her to stay from because when they are together and typically is not good for her own mental health. Benefited from group support, encouragement. Will continue in IOP to continue working on distress tolerance, challenging negative thought patterns, and prevent decompensation.
--- NOTE | 2023-12-05 10:10 | BH.SGPN.GN ---
Behaviors/Verbalizations/Mental Status: []Pt alert and oriented, appropriate grooming/appearance. Eye contact good. Motor activity appropriate. Speech within normal limits. Affect congruent, mood anxious and depressed. Thoughts linear, logical, no signs of hallucinations or delusions. Client Response/Progress/Benefit: []Pt was an active participant in group discussions. Attentive during psychoeducation. Contributed during interactive discussions in which peers attempted to define crisis. Pt identified examples of potential crisis. Group also worked together to identify unhealthy responses to crisis which included; isolation, self-harm, substance abuse, avoidance, and distraction. Pt identified personal warning signs as increased memory problems, lack of self-care, and avoiding her responsibilities. Benefited from increased understanding of crisis and awareness of personal responses to crisis. Pt will continue IOP tx to improve boundaries, increase healthy coping, and prevent decompensation. Narrative Note: []
--- NOTE | 2023-12-05 11:10 | BH.SGPN.GN ---
Behaviors/Verbalizations/Mental Status: []Eye contact is good. Motor activity is appropriate. Appearance is casual. Speech is Appropriate. Mood is anxious and dysthymic. Affect is congruent. Thoughts are linear and logical. No evidence of psychosis. Client Response/Progress/Benefit: [] Pt was an active participant in group discussions. Attentive during psychoeducation. In small group pt along with peers developed an active plan for their crisis warning signs. Pt identified three crisis warning signs as well as an action plan for each. One crisis warning sign was lack of self-care. Pt identified coping skills to help with this such as: using candles and scents to make showering more enjoyable, and asking for help preparing the things she will need. Benefited from increased awareness of crisis warning signs and by developing crisis intervention strategies. Will continue in IOP to prevent decompensation, increase distress tolerance, and improve mood stability. ? Narrative Note: []
--- NOTE | 2023-12-06 09:05 | BH.SGPN.GN ---
Behaviors/Verbalizations/Mental Status: [] Eye contact is good. Motor activity is appropriate. Appearance is casual. Speech is Appropriate. Mood is anxious. Affect is congruent. Thoughts are linear and logical. No evidence of psychosis. Reviewed daily check in sheet and no reports of suicidal ideations or intent. Client Response/Progress/Benefit: [] Pt participated at times during the group discussion. Attentive. Daily symptom tracker notes 3/5 for anxiety and 2/5 for depression. Emotion for today is anxious. Able to identify mental health wins and healthy habits. Is planning a trip out of town this weekend to be with extended family which she is looking forwards too. Describes extended family as healthy support. Several psychosocial stressors which continues to impact mental health. States I was spiraling yesterday however shared that she was able to utilize skills, reframe, and complete tasks. Shared that she is more engaged and not isolating as much which has helped with mental health. Progress noted. Benefited from group support, encouagement, and feedback. Will continue in IOP to prevent decompensation, stabilize mood, and increase healthy coping. Narrative Note: []
--- NOTE | 2023-12-06 10:10 | BH.SGPN.GN ---
Behaviors/Verbalizations/Mental Status: []Pt alert and oriented, casually dressed and groomed. Eye contact good. Motor activity appropriate. Speech within normal limits. Affect congruent, mood depressed. Thoughts linear, logical, no signs of hallucinations or delusions. Client Response/Progress/Benefit: [] Pt connected with topic of anxiety and participated throughout, providing input and taking notes. Participated throughout interactive discussion defining anxiety and identifying cognitive and physiological symptoms of anxiety. Group discussed how anxiety can prevent them from trying new things. Pt identified their physical signs of anxiety as: headache, stomach aches, teeth grinding, and increase heart rate. Pt identified safety behaviors as: canceling plans, reassurance seeking, and avoidance. Benefited from increased awareness and insight on anxiety and its impact. Pt will continue IOP tx to prevent decompensation, improve daily functioning, and increase self-care. Narrative Note: []
--- NOTE | 2023-12-06 11:10 | BH.SGPN.GN ---
Behaviors/Verbalizations/Mental Status: []Pt alert and oriented, casually dressed and groomed. Eye contact fair. Motor activity appropriate. Speech within normal limits. Affect congruent, mood anxious. Thoughts linear, logical, no signs of hallucinations or delusions. Client Response/Progress/Benefit: [] Pt was an active participant AEB pt providing input and listening attentively to peers. Attentive during psychoeducation on mindfulness coping skills and their impact on reducing anxiety and improving overall mental health wellness. Group was able to identify self-soothing and mind-based coping skills which included: 5-senses, meditation, deep breathing, TIPP, thought challenging, and progressive muscle relaxation. Pt also participated with peers in practicing mindfulness skills in session. Pt would like to work on 4x4x4 deep breathing to manage anxiety. Appeared to benefit from increasing repertoire of anxiety reduction skills. Pt will continue in IOP tx to promote mood stability, increase distress tolerance skills, and improve daily functioning. Narrative Note: []
--- NOTE | 2023-12-07 09:00 | BH.SGPN.GN ---
Behaviors/Verbalizations/Mental Status: [] Eye contact good. Motor activity appropriate. Speech within normal limits. Affect congruent, mood anxious. Thoughts linear, logical, no signs of hallucinations or delusions. Reviewed client?s symptom tracker, denies SI, plan, or intent as of 12/07/2023. Client Response/Progress/Benefit: [] Client receptive of session, attentive and willing to process with group. Identified mental health ?wins? today as using healthy skills of taking a nap and listening to music when overwhelmed rather than forcing herself to remain in a situation and risk taking her mood out on others. Additional win is plans to take time to go through her storage unit and pack for a trip to [place] for a baby shower this weekend. Reports this will give her an opportunity to spend time out of the house with healthy people. Current stressor noted as having to rely on others for transportation to [place]. Did well to identify several skills she can utilize to accept and cope with this. Was receptive of group support. Recommended continued IOP tx to continue to promote mood stability, as well as consistent skill application, and prevent decompensation. Narrative Note: []
--- NOTE | 2023-12-07 10:20 | BH.SGPN.GN ---
Behaviors/Verbalizations/Mental Status: []Pt alert and oriented, casually dressed and groomed. Eye contact poor. Motor activity appropriate. Speech within normal limits. Affect congruent, mood depressed. Thoughts linear, logical, no signs of hallucinations or delusions. ? Client Response/Progress/Benefit: []Pt responded well to session, attentive and engaged. Pt participated in activity where pts had to guess the celebrity with a known mental health diagnosis and this led to discussion on self-stigma. Group participated in the discussion defining stigma as well as what stigma has kept pt's from doing in their lives. Pt did a lot of nodding during group, but she did not share any personal examples of internal stigma. Pt worked with peers to begin discussion of what reinforces stigma and this was discussed further in the next group. Pt appeared to benefit from learning about the different types of stigma as well as gaining awareness of how stigma as personally impacted pt. Pt will continue IOP tx to provide a stable environment to gain skills and increase social support. Narrative Note: []
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
--- NOTE | 2023-12-19 09:05 | BH.SGPN.GN ---
Behaviors/Verbalizations/Mental Status: [] Eye contact good, tearful throughout. Motor activity appropriate. Speech within normal limits. Affect congruent, mood depressed and anxious. Thoughts linear, logical, no signs of hallucinations or delusions. Reviewed client?s symptom tracker, SI within baseline, denies plan, or intent as of 12/19/2023. Client Response/Progress/Benefit: [] Client receptive of session, attentive and appeared to connect with fellow participants AEB listening and providing feedback at times. Declined to process her current wins and stressors with the group however. Did identify getting a new kitten which has given her something positive to focus on. Appeared to benefit from supportive group environment. Recommended continued IOP tx to improve mood stability and application of distress tolerance skills, as well as prevent decompensation. Pt individual therapist informed of pt declining to share. Narrative Note: []
--- NOTE | 2023-12-19 10:10 | BH.SGPN.GN ---
Behaviors/Verbalizations/Mental Status: []Eye contact is good. Motor activity is appropriate. Appearance is casual. Speech is Appropriate. Mood is anxious. Affect is congruent. Thoughts are linear and logical. No evidence of psychosis. Client Response/Progress/Benefit: [] Pt was an engaged participant AEB listening attentively to others, taking notes, and providing feedback in small group discussions. Attentive during psychoeducation AEB by note taking and providing some input. Pt worked along with peers in small groups to define inappropriate guilt and appropriate guilt. Interactive discussion on examples of both inappropriate and appropriate guilt. Pt able to connect impact inappropriate guilt can have on MH. Benefited from increased awareness of guilt and the differences between appropriate and inappropriate guilt. Will continue in IOP to increse healthy coping, improve distress tolerance, and prevent decompensation.
--- NOTE | 2023-12-19 11:08 | BH.SGPN.GN ---
Behaviors/Verbalizations/Mental Status: []Pt alert and oriented, casually dressed and groomed. Eye contact good. Motor activity appropriate. Speech within normal limits. Affect constricted, mood depressed and anxious. Thoughts linear, logical, no signs of hallucinations or delusions. Client Response/Progress/Benefit: []Pt engaged participant AEB listening attentively to others and providing input throughout group. Pt worked within their small group to identify strategies to manage inappropriate guilt. Pt did not share her personal example of inappropriate guilt, but she participated in the group activity. Pt seemed to benefit from learning about strategies to manage appropriate and inappropriate guilt. Pt will continue IOP tx to promote mood stability, reduce use of unhealthy coping skills, and improve daily functioning. ?? Narrative Note: []
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
--- NOTE | 2023-12-19 14:15 | BH.COMM_ITS ---
Communication Note Communication with Client Communication Note: Spoke with patient after IOP this AM. Significant psychosocial stressors which are impacting her current housing. She has a meeting with [facility] textile clothing and footwear mechanic this afternoon and is unsure where she will be staying tonight. Current plan is to stay at local intermediate. Housing and safety are primary concerns for patient. IOP staff aware that may be unable to attend this week.
--- NOTE | 2023-12-21 08:35 | BH.COMM ---
Communication Note Communication with Client Communication Note: Pt canceled yesterday and today for IOP sessions. Due to cancelations, pt was unable to be seen this week individually. Pt plans to attend 12/26/23.
--- NOTE | 2023-12-26 09:05 | BH.SGPN.GN ---
Behaviors/Verbalizations/Mental Status: [] Eye contact is good. Motor activity is appropriate. Appearance is casual. Speech is Appropriate. Mood is depressed. Affect is congruent. Thoughts are linear and logical. No evidence of psychosis. Reviewed daily check in sheet and no reports of suicidal ideations or intent. Client Response/Progress/Benefit: [] Pt participated when prompted. Attentive. Daily symptom tracker notes 4/5 for irritability, 3/5 for anxiety, and 2/5 for depression. She apologized for missing the past couple IOP sessions stating that she has been through several psychosocial stressors in the past week. I have lots on my plate. She did not elaborate with the group however pt is currently homeless and will either live in a tent or with family. She reports being linked with local agencies and states I'm approved for housing however nothing is available. She has a meeting with a clinic scheduler this afternoon. She is attempting to stay busy and has set up some volunteering options locally. Primary concerns currently are related to her basic needs. She shared that today will be her last day in [facility]. Able to see benefits however due to significant psychosocial stressors she was not able to be as consistent as she would have liked. Beneifted from group support, encouragement, and feedback. Will be discharged successfully from [facility] today. Narrative Note: []
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
--- NOTE | 2023-12-27 10:10 | BH.SGPN.GN ---
Behaviors/Verbalizations/Mental Status: []Pt alert and oriented, casually dressed and groomed. Eye contact good. Motor activity appropriate. Speech within normal limits. Affect congruent, mood dysthymic anxious. Thoughts linear, logical, no signs of hallucinations or delusions. Client Response/Progress/Benefit: [] Pt was an active?participant in group discussion identifying benefits of healthy relationships which included improved connections, accountability, and personal growth. Group identified factors that lead to unhealthy relationships. Pt?s personal factors included poor communication, maintaining toxic relationships despite awareness they are unhealthy, and poor communication. Actively participated in group experiential activity and expressed ideas to group. Benefited from increased insight and awareness of benefits of healthy relationships and factors that contribute to unhealthy relationships. Will continue d/c from IOP and continue in outpatient counseling tx to promote mood stability, increase consistency of skill application, and improve daily functioning. Narrative Note: []
== END 2023-12-26 12:00 | disposition home or self-care (01) ==
LOC: BHIOP 06:34
PROVIDERS: Referring Provider Psychiatry & Neurology Psychiatry; Visit Provider Psychiatry & Neurology Psychiatry
DX: F31.4 Bipolar disorder, current episode depressed, severe, without psychotic features (principal); F43.10 Post-traumatic stress disorder, unspecified; F90.9 Attention-deficit hyperactivity disorder, unspecified type; F60.3 Borderline personality disorder; F41.0 Panic disorder [episodic paroxysmal anxiety]; Z79.899 Other long term (current) drug therapy
CPT/HCPCS: S9480; 90832; 90834; 90853

== ENCOUNTER 2023-12-12 08:44 | Emergency (ER) | payer MEDICARE, MEDICAID, SELFPAY ==
[2023-12-12 08:45] VITALS: BP 157/103; PULSE 100; RESP 18; TEMP 37; O2SAT 100; BMI 31.1
--- NOTE | 2023-12-12 08:59 | EKG12_ITS ---
Test Reason : CP Blood Pressure : / mmHG Vent. Rate : 101 BPM Atrial Rate : 101 BPM P-R Int : 134 ms QRS Dur : 096 ms QT Int : 354 ms P-R-T Axes : 049 040 045 degrees QTc Int : 459 ms Sinus tachycardia Cannot rule out Anterior infarct , age undetermined Abnormal ECG Confirmed by MARTINE WELLS, FRANCISCO ([id number]), dictionary editor YENI ANTHONY ([id number]) on 12/13/2023 10:13:39 AM Referred By: Confirmed By:FRANCISCO FARLEY MD
--- NOTE | 2023-12-12 09:01 | EDS_ITS ---
HPI History of Present Illness Chief Complaint: Chest Pain Narrative Narrative: 38-year-old female with history of hypertension, diabetes, provoked DVT presenting with chest pain. Started about 8:00 this morning after the patient woke up at 845. She states she has associated nausea. Patient describes the pain as achy. It radiates from the left side of her chest to the right side. It has been constant. Patient does not have history of TX or known history of CAD although she admits to use of poorly controlled hypertension and diabetes. She states she does get intermittent chest pains from time to time but nothing that lasts this long. Denies fever, chills, cough. PE Risk Factors: Negative for Recent Travel/Surgery, Recent Immobilization, Prior DVT or PE or OCP + Smoking + >/=35 PFSH PFSH Medical History ADHD Anxiety and depression Bipolar disorder Bipolar disorder, current episode depressed, severe, without psychotic features Borderline personality disorder Craniofacial hyperhidrosis Fibromyalgia Hemoglobin A1c greater than 9.0% History of necrotising fasciitis History of venous thromboembolism HTN (hypertension) Hydradenitis Lactose intolerance in adult Necrotizing fasciitis Obesity Open wound of vulva Panic disorder Polycystic ovary Polyneuropathy due to type 2 diabetes mellitus Post traumatic stress disorder (PTSD) Type 2 diabetes mellitus Vulvar abscess Home Medications albuterol sulfate 90 mcg/actuation aerosol inhaler 1 inh inhalation PRN PRN Shortness Of Breath 08/09/21 [History Last Taken Unknown] gabapentin 300 mg capsule 1,200 mg PO BID nerve pain 08/09/21 [History Last Taken 12/18/21] cholecalciferol (vitamin D3) 1,250 mcg (50,000 unit) capsule 1,250 mcg PO QWEEK supplement 12/18/21 [History Last Taken 12/15/21] biotin 1 mg capsule 1 mg PO DAILY 01/06/22 [History Last Taken Unknown] lactobacillus combination no.9 4 billion cell capsule (Adult 50 Plus Probiotic) 4,000 mmu cells PO DAILY 01/06/22 [History Last Taken Unknown] multivitamin 1 tab PO DAILY 01/06/22 [History Last Taken Unknown] polyethylene glycol 3350 17 gram/dose oral powder (Miralax) 4 g PO DAILY #850 grams 05/19/22 [Rx Last Taken Unknown] dulaglutide 3 mg/0.5 mL subcutaneous pen injector 3 mg (0.5 mL) subcut QWEEK diabetes #2 mL 01/30/23 [Rx Last Taken Unknown] flash glucose scanning reader (NetseerStyle Chirag 2 [place]) #1 ea 01/30/23 [Rx Last Taken Unknown] flash glucose sensor (FreeStyle Chirag 2 Sensor kit) #2 ea 01/30/23 [Rx Last Taken Unknown] loratadine 10 mg tablet 10 mg PO DAILY allergies #90 tabs 01/30/23 [Rx Last Taken Unknown] losartan 50 mg tablet 25 mg PO DAILY 01/30/23 [History Last Taken Unknown] metformin 500 mg tablet 1,000 mg (2 x 500 mg) PO BIDCM diabetes #90 tabs 01/30/23 [Rx Last Taken Unknown] omeprazole 40 mg capsule,delayed release 40 mg PO DAILY GERD #90 caps 01/30/23 [Rx Last Taken Unknown] insulin degludec 100 unit/mL (3 mL) subcutaneous pen (Tresiba FlexTouch U-100 insulin) 40 unit subcut DAILY diabetes 08/19/23 [History Last Taken Unknown] buspirone 5 mg tablet 5 mg PO TID 30 days #90 tabs 11/14/23 [Rx Last Taken Unkno wn] insulin NPH isoph U-100 human 100 unit/mL (3 mL) subcutaneous pen (Novolin N FlexPen) 50 unit subcut BID 11/14/23 [History Last Taken Unknown] insulin lispro 100 unit/mL subcutaneous pen (Humalog KwikPen (U-100) Insulin) 10 unit subcut TID 11/14/23 [History Last Taken Unknown] prazosin 1 mg capsule 1 mg PO QHS 30 days #30 caps 11/14/23 [Rx Last Taken Unknown] aripiprazole 5 mg tablet (Abilify) 5 mg PO QHS 30 days #30 tabs 11/28/23 [Rx Last Taken Unknown] ondansetron 4 mg disintegrating tablet 4 mg PO Q8H PRN PRN Nausea #20 tabs 12/12/23 [Rx Last Taken Unknown] Allergy/AdvReac Type Severity Reaction Status Date / Time doxycycline Allergy Severe rash Verified 12/12/23 08:45 amoxicillin [Amoxicillin] Allergy Unknown Verified 12/12/23 08:45 asenapine maleate Allergy Unknown Verified 12/12/23 08:45 [From Saphris] cephalexin AdvReac Intermediate upset Verified 12/12/23 08:45 stomach Family History Mother Hypertension Brain aneurysm Father Diabetes Hypertension Grandmother Cancer liver throat kidney Diabetes Hypertension Heart disease CVA (cerebral vascular accident) Breast cancer Grandfather Kidney disease Hypertension CVA (cerebral vascular accident) Surgical History H/O lateral meniscus repair of left knee Social History household members: spouse Smoking Status: Current every day smoker tobacco type: cigarettes alcohol intake: never substance use type: does not use caffeine: Yes frequency: 5-6 times per week seatbelt use: always do you feel safe at home: Yes additional social history: Jonathan- Unemployed Patient is on disability ROS ROS ED Constitutional Constitutional ED: Denies chills, fever(s) or sweats Eyes Eyes: Denies blurry vision or change in vision ENT ENT ED: Denies ear pain or sore throat Cardiovascular Cardiovascular: Reports chest pain; Denies palpitations or racing heartbeat Respiratory/Chest Respiratory/Chest: Denies cough, dyspnea or sputum Gastrointestinal Gastrointestinal: Reports nausea; Denies abdominal pain, constipation, diarrhea or vomiting Genitourinary Genitourinary ED: Denies dysuria, hematuria or urinary frequency Musculoskeletal Musculoskeletal: Denies arthralgias, myalgias or neck pain Integumentary Denies abscess, Abrasions or rash Neurologic Neurologic: Denies headache(s), paresthesias or weakness Psychiatric Psychiatric: Denies anxiety, depression, suicidal ideation or suicidal thoughts Endocrine Endocrinology: Denies polydipsia or polyuria EXAM Physical Exam Const Vital Signs: 12/12/23 08:45 12/12/23 09:38 12/12/23 09:44 Temperature 98.6 F Temperature Source Temporal Pulse Rate 100 81 Respiratory Rate 18 16 Blood Pressure 157/103 H 146/91 H Blood Pressure Mean 121 109 Pulse Ox 100 95 Oxygen Delivery Method Room Air Room Air Room Air 12/12/23 10:00 12/12/23 11:00 12/12/23 12:00 Temperature Temperature Source Pulse Rate 83 78 80 Respiratory Rate 17 14 17 Blood Pressure 155/86 H 141/81 H 128/75 H Blood Pressure Mean 109 101 92 Pulse Ox 96 100 99 Oxygen Delivery Method Room Air Room Air Room Air 12/12/23 12:14 Temperature 98.1 F Temperature Source Pulse Rate 81 Respiratory Rate 16 Blood Pressure 128/78 H Blood Pressure Mean 94 Pulse Ox 100 Oxygen Delivery Method Positive well nourished General Appearance ED: NAD; Negative for pallor HEENT Reports moist mucous membranes normocephalic Resp normal respiratory effort and clear to auscultation bilaterally Auscultation: Negative for rales, rhonchi or wheezes Cardio regular rate and regular rhythm Neuro oriented x3 and CN's II-XII intact bilaterally Sensorium / Orientation: awake and alert Motor Exam: strength 5/5 throughout Psych mental status grossly normal Skin no rashes or lesions noted General Skin Exam: Negative for jaundice or pallor Heart Score History: Slightly/Non-Suspicious ECG: Normal Age: </= 45 years Risk Factors: >/= 3 Risk Factors or History of CAD Score: 2 MDM MDM MDM Narrative Medical decision making narrative: Patient presenting with chest pain. Patient presenting with chest pain. Differential includes acute coronary syndrome, pneumonia, aortic dissection, PE, costochondritis, CHF, pneumothorax. IV line was established patient given morphine and Zofran. EKG on my interpretation shows sinus tachycardia at a rate of 101 bpm without sign of ischemic change. CBC will be obtained to assess white blood cell count, hemoglobin, platelets. BMP to assess renal function, electrolytes, glucose. High-sensitivity troponin will be obtained to assess for ischemia. Patient will have a delta troponin drawn as well. D-dimer to assess for PE. CBC shows normal white blood cell count 7.3. Hemoglobin 15. Platelets normal 181. D-dimer negative. High-sensitivity troponin and delta troponin both less than 3. Chest x-ray my interpretation is no acute cardiopulmonary process. Radiologist interprets this and agrees. Discussed workup and findings with the patient. All questions were answered. She feels better after being medicated. I recommended follow-up and return precautions. Impression: 1. Chest pain 2. Nausea Lab Data Attestation: I reviewed the patient's lab results. Labs: Laboratory Results - last 24 hr 12/12/23 12/12/23 09:10 11:07 WBC 7.3 RBC 5.41 H Hgb 15.0 Hct 44.7 MCV 82.6 MCH 27.7 MCHC 33.6 RDW Std Deviation 39.6 RDW Coeff of Amada 13.3 Plt Count 181 MPV 13.0 H Immature Gran % (Auto) 0.600 Neut % (Auto) 66.2 Lymph % (Auto) 23.7 [place] % (Auto) 5.7 Eos % (Auto) 3.0 Baso % (Auto) 0.8 Absolute Neuts (auto) 4.8 Absolute Lymphs (auto) 1.72 Nucleated RBC % 0 D-Dimer Quant (PE/DVT) < 0.27 L Sodium 132 L Potassium 4.5 Chloride 100 Carbon Dioxide 26.0 Anion Gap 6 BUN 17 Creatinine 0.78 Estim Creat Clear Calc 114.32 Est GFR (MDRD) Af Amer 105 Est GFR (MDRD) Non-Af 87 BUN/Creatinine Ratio 21.8 H Glucose 444 H Calcium 9.0 Troponin I High Sens < 3 L < 3 L Radiography Diagnostic Testing: Clinical Impression(s) from Imaging Studies Chest X-Ray 12/12/23 09:18 IMPRESSION: No acute cardiopulmonary disease. Electronically Signed: Julien Tomlinson MD at 9:45 EDT , Discharge Plan Triage Chief Complaint: Chest Pain ED Provider: Kolby Crocker Dx/Rx/DC Orders Instructions: ED Chest Pain, Noncardiac, ED Diabetic Hyperglycemia Prescriptions: New ondansetron 4 mg tablet,disintegrating 4 mg PO Q8H PRN PRN (Reason: Nausea) Qty: 20 0RF No Action gabapentin 300 mg capsule 1,200 mg PO BID Patient Comments: TAKE 1 CAPSULE BY MOUTH TWICE DAILY albuterol sulfate 90 mcg/actuation HFA aerosol inhaler 1 inh inhalation PRN PRN (Reason: Shortness Of Breath) Patient Comments: inhale 2 puffs every 4 hours as needed for wheezing and shortness of breath biotin 1 mg capsule 1 mg PO DAILY multivitamin Tablet 1 tab PO DAILY Adult 50 Plus Probiotic 4 billion cell capsule 4,000 mmu cells PO DAILY polyethylene glycol 3350 [Miralax] 17 gram/dose powder 4 g PO DAILY Qty: 850 1RF losartan 50 mg tablet 25 mg PO DAILY (DME) FreeStyle Chirag 2 Sensor Kit See Rx Instructions .ROUTE .MEDSUPPLY Qty: 2 1RF Rx Instructions: As directed (DME) FreeStyle Chirag 2 [place] Misc See Rx Instructions .ROUTE .MEDSUPPLY Qty: 1 0RF Rx Instructions: As directed dulaglutide 3 mg/0.5 mL pen injector 3 mg subcut QWEEK Qty: 2 3RF omeprazole 40 mg capsule,delayed release(DR/EC) 40 mg PO DAILY Qty: 90 0RF metformin 500 mg tablet 1,000 mg PO BIDCM Qty: 90 1RF loratadine 10 mg tablet 10 mg PO DAILY Qty: 90 0RF cholecalciferol (vitamin D3) 1,250 mcg (50,000 unit) capsule 1,250 mcg PO QWEEK Rx Instructions: sunday insulin degludec [Tresiba FlexTouch U-100] 100 unit/mL (3 mL) insulin pen 40 unit SUBCUT DAILY Novolin N FlexPen 100 unit/mL (3 mL) insulin pen 50 unit subcut BID insulin lispro [Humalog KwikPen Insulin] 100 unit/mL insulin pen 10 unit subcut TID Rx Instructions: with meals buspirone 5 mg tablet 5 mg PO TID 30 Days Qty: 90 1RF prazosin 1 mg capsule 1 mg PO QHS 30 Days Qty: 30 0RF aripiprazole [Abilify] 5 mg tablet 5 mg PO QHS 30 Days Qty: 30 1RF Primary Care Provider: Care Physician,No Primary Referrals: Care Physician,No Primary [Primary Care Provider] - Disposition Disposition: Home, Self Care Discharge Date/Time: 12/12/23 12:18
--- NOTE | 2023-12-12 09:18 | RAD_ITS ---
EXAM: XR CHEST, 1 VIEW CLINICAL INDICATION: chest pain TECHNIQUE: Frontal view of the chest. COMPARISON: No relevant prior studies available. FINDINGS: LUNGS AND PLEURAL SPACES: Normal. No consolidation or edema. No pneumothorax. No effusion. HEART: Normal heart size. MEDIASTINUM: No mediastinal or hilar mass. BONES/JOINTS: No acute abnormality. RAD/Chest 1 View (Portable) IMPRESSION: No acute cardiopulmonary disease. Electronically Signed: Julien Tomlinson MD at 9:45 EDT ,
[2023-12-12 09:21] LABS: Absolute Lymphocyte Count 1.72 X10^3/uL (0.83-4.51); Absolute Neutrophil Count 4.8 X10^3/uL (2.0-7.7); Basophil# 0.06 X10^3/uL; Basophil% 0.8 % (0-1); Eosinophil# 0.22 X10^3/uL; Hematocrit 44.7 % (37-47); Lymphocyte # 1.72 X10^3/ul (0.83-4.51); Lymphocyte % 23.7 % (19-41); Mean Corp Hgb Conc 33.6 g/dL (32-36); Mean Corpuscular Hgb 27.7 pg (27.0-32.0); Mean Corpuscular Volume 82.6 fL (81-99); Monocyte# 0.41 X10^3/uL; Monocyte% 5.7 % (0-10); NRBC Flagged by Analyzer 0 % (0-5); Neutrophil % 66.2 % (47-70); Platelet Count 181 K/mm3 (150-450); RBC Distribution Width CV 13.3 % (11.6-14.6); RBC Distribution Width SD 39.6 fl (35.1-43.9); Red Blood Count 5.41 M/mm3 (4.2-5.4); White Blood Count 7.3 K/mm3 (4.4-11.0)
[2023-12-12] MEDS: Ondansetron 4 MG/2 ML Vial IV (09:22)
[2023-12-12] MEDS: Aspirin 81 MG TAB.CHEW 324 MG PO (09:22)
[2023-12-12] MEDS: Morphine 4 MG/ML Syringe IV (09:22)
[2023-12-12 09:30] LABS: D-Dimer Quantitative (DVT/PE) < 0.27 FEU/ug/m (0.27-0.49)
[2023-12-12 09:44] VITALS: BP 146/91; PULSE 81; RESP 16; O2SAT 95
[2023-12-12 10:00] VITALS: BP 155/86; PULSE 83; RESP 17; O2SAT 96
[2023-12-12 10:02] LABS: Anion Gap 6 (5-15); BUN 17 mg/dL (7-18); BUN/Creat Ratio 21.8 RATIO (10-20); Chloride 100 mmol/L (98-107); Creatinine, Serum 0.78 mg/dL (0.55-1.02); EST Glomerular Filtration Rate 87 mL/min (>60); Est Glom Filt Rate - Afr Amer 105 mL/min (>60); Estimated Creatinine Clearance 114.32 ml/min; Glucose 444 mg/dL (74-106); Potassium 4.5 mmol/L (3.5-5.1); Sodium Level 132 mmol/L (136-145); Troponin-I HS (w/2H Reflex) < 3 pg/mL (3.0-54.0)
[2023-12-12 11:00] VITALS: BP 141/81; PULSE 78; RESP 14; O2SAT 100
[2023-12-12 11:14] LABS: Reflex Troponin-HS? (from REC) Y
[2023-12-12 11:50] LABS: Troponin-I HS < 3 pg/mL (3.0-54.0)
[2023-12-12 12:00] VITALS: BP 128/75; PULSE 80; RESP 17; O2SAT 99
[2023-12-12 12:14] VITALS: BP 128/78; PULSE 81; RESP 16; TEMP 36.7; O2SAT 100
== END 2023-12-12 12:18 | disposition home or self-care (01) ==
PROVIDERS: Emergency Provider Student in an Organized Health Care Education/Training Program; Visit Provider Student in an Organized Health Care Education/Training Program
DX: R07.9 Chest pain, unspecified (principal); F31.9 Bipolar disorder, unspecified; Z79.4 Long term (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 of insulin; E11.9 Type 2 diabetes mellitus without complications; R11.0 Nausea; I10 Essential (primary) hypertension; Z79.85 Long-term (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 of injectable non-insulin antidiabetic drugs; Z79.899 Other long term (current) drug therapy; Z79.84 Long term (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 of oral hypoglycemic drugs; F41.8 Other specified anxiety disorders; F17.210 Nicotine dependence, cigarettes, uncomplicated
CPT/HCPCS: 71045; 80048; 84484; 85025; 85379; 93005; 96374; 96375; 99283; A4216; J2405

== ENCOUNTER → 2024-02-26 | Outpatient (CLI) | payer MEDICARE, MEDICAID, SELFPAY ==
[2024-02-26 12:46] LABS: Absolute Lymphocyte Count 1.58 X10^3/uL (0.83-4.51); Absolute Neutrophil Count 3.8 X10^3/uL (2.0-7.7); Basophil# 0.05 X10^3/uL; Basophil% 0.8 % (0-1); Eosinophil# 0.22 X10^3/uL; Eosinophils% 3.6 % (0-5); Hematocrit 37.2 % (37-47); Hemoglobin 12.4 g/dL (12.0-15.0); Lymphocyte # 1.58 X10^3/ul (0.83-4.51); Lymphocyte % 25.9 % (19-41); Mean Corp Hgb Conc 33.3 g/dL (32-36); Mean Corpuscular Hgb 27.7 pg (27.0-32.0); Mean Corpuscular Volume 83.2 fL (81-99); Mean Platelet Vol. 12.7 fl (6.2-12.0); Monocyte# 0.43 X10^3/uL; NRBC Flagged by Analyzer 0 % (0-5); Neutrophil # 3.82 X10^3/uL (2.7-7.7); Neutrophil % 62.7 % (47-70); Platelet Count 144 K/mm3 (150-450); RBC Distribution Width CV 13.5 % (11.6-14.6); RBC Distribution Width SD 41.1 fl (35.1-43.9); Red Blood Count 4.47 M/mm3 (4.2-5.4); White Blood Count 6.1 K/mm3 (4.4-11.0)
[2024-02-26 13:34] LABS: HIV - WCH Non-Reactive (Nonreactive); Hepatitis B Surface Antibody Non-Reactive; Hepatitis B Surface Antigen Non-Reactive (Nonreactive); Hepatitis C Antibody Non-Reactive (Nonreactive); Syphilis Antibodies Non-reactive; Vitamin B12 458 pg/mL (211-911); Vitamin D,25 Hydroxy 36.6 ng/mL
[2024-02-26 13:38] LABS: ALB/GLOB Ratio 0.9 RATIO (0.9-2.4); AST(SGOT) 14 U/L (15-37); Alanine Aminotransfer ALT/SGPT 18 U/L (13-56); Albumin, Serum 3.1 g/dL (3.2-5.0); Alkaline Phosphatase 49 U/L (45-117); Anion Gap 8 (5-15); BUN 15 mg/dL (7-18); BUN/Creat Ratio 25.8 RATIO (10-20); Calcium,Total 8.3 mg/dL (8.5-10.1); Chloride 105 mmol/L (98-107); Creatinine, Serum 0.58 mg/dL (0.55-1.02); EST Glomerular Filtration Rate 121 mL/min (>60); Est Glom Filt Rate - Afr Amer 147 mL/min (>60); Globulin 3.4 g/dL (2.2-4.2); Glucose 260 mg/dL (74-106); Magnesium 1.7 mg/dL (1.6-2.6); Protein, Total 6.5 g/dL (6.4-8.2); Sodium Level 136 mmol/L (136-145); Thyroid Stim Hormone (TSH) 1.47 uIU/mL (0.358-3.74)
[2024-02-27 05:08] LABS: Hepatitis B Core Ab Total Negative (Negative)
== END | disposition home or self-care (01) ==
LOC: VSLAB 09:32
PROVIDERS: PCP Nurse Practitioner Family; Visit Provider Nurse Practitioner Family
DX: Z11.3 Encounter for screening for infections with a predominantly sexual mode of transmission (principal); E11.65 Type 2 diabetes mellitus with hyperglycemia; Z20.5 Contact with and (suspected) exposure to viral hepatitis; E53.9 Vitamin B deficiency, unspecified; E55.9 Vitamin D deficiency, unspecified; I10 Essential (primary) hypertension
CPT/HCPCS: 36415; 80053; 82043; 82306; 82607; 82746; 83735; 84443; 85025; 86703; 86704; 86706; 86780; 86803; 87340

== ENCOUNTER 2024-04-24 09:46 | Emergency (ER) | payer MEDICARE, MEDICAID, SELFPAY ==
[2024-04-24 09:46] VITALS: BP 189/110; BP 193/101; PULSE 93; PULSE 95; RESP 14; RESP 18; TEMP 36.3; O2SAT 99; BMI 37.0
--- NOTE | 2024-04-24 10:08 | EDS_ITS ---
HPI History of Present Illness Chief Complaint: Flank Pain Informant: patient Onset/Context/Timing Onset: Yesterday Context: Gradual Onset Timing: Continuous Quality: Sharp Location: Left flank Worsened by: Bending over Relieved by: Laying down Narrative Narrative: Patient presents with left flank pain that began yesterday. Patient states it came on gradually. Patient states has been constant. Patient describes her pain as sharp. Patient states it is worse when she bends over and lays on her left side. Patient states it is better when she lays down and lays on her right side. Patient states she went to the urgent care today and was referred to the emergency department because of a 30 pound weight gain over the last 3 months. Patient also states she has been having some dyspnea on exertion. Patient states that if she walks 3 to 5 minutes she becomes out of breath and has to stop. Patient also admits to some pain in her chest. Patient states it is over the substernal area. Patient states it is steady and throbbing. Patient admits to some nausea but denies any vomiting. [facility] Medical History ADHD Panic disorder Borderline personality disorder Bipolar disorder, current episode depressed, severe, without psychotic features Post traumatic stress disorder (PTSD) Necrotizing fasciitis HTN (hypertension) Type 2 diabetes mellitus Lactose intolerance in adult Craniofacial hyperhidrosis Polyneuropathy due to type 2 diabetes mellitus Obesity Open wound of vulva Hemoglobin A1c greater than 9.0% Vulvar abscess History of necrotising fasciitis Fibromyalgia Anxiety and depression History of venous thromboembolism Polycystic ovary Bipolar disorder Hydradenitis Home Medications ?Medication ?Instructions ?Recorded ?Last Taken ?Type albuterol sulfate 90 mcg/actuation 1 inh inhalation PRN PRN Shortness 08/09/21 Unknown History aerosol inhaler Of Breath gabapentin 300 mg capsule 1,200 mg PO BID nerve pain 08/09/21 12/18/21 History cholecalciferol (vitamin D3) 1,250 1,250 mcg PO QWEEK supplement 12/18/21 12/15/21 History mcg (50,000 unit) capsule biotin 1 mg capsule 1 mg PO DAILY 01/06/22 Unknown History lactobacillus combination no.9 4 4,000 mmu cells PO DAILY 01/06/22 Unknown History billion cell capsule (Adult 50 Plus Probiotic) multivitamin 1 tab PO DAILY 01/06/22 Unknown History polyethylene glycol 3350 17 4 g PO DAILY #850 grams 05/19/22 Unknown Rx gram/dose oral powder (Miralax) dulaglutide 3 mg/0.5 mL 3 mg (0.5 mL) subcut QWEEK 01/30/23 Unknown Rx subcutaneous pen injector diabetes #2 mL flash glucose scanning reader #1 ea 01/30/23 Unknown Rx (FreeStyle Chirag 2 Nitro) flash glucose sensor (FreeStyle #2 ea 01/30/23 Unknown Rx Chirag 2 Sensor kit) loratadine 10 mg tablet 10 mg PO DAILY allergies #90 tabs 01/30/23 Unknown Rx losartan 50 mg tablet 25 mg PO DAILY 01/30/23 Unknown History metformin 500 mg tablet 1,000 mg (2 x 500 mg) PO BIDCM 01/30/23 Unknown Rx diabetes #90 tabs omeprazole 40 mg capsule,delayed 40 mg PO DAILY GERD #90 caps 01/30/23 Unknown Rx release insulin degludec 100 unit/mL (3 40 unit subcut DAILY diabetes 08/19/23 Unknown History mL) subcutaneous pen (Tresiba FlexTouch U-100 insulin) buspirone 5 mg tablet 5 mg PO TID 30 days #90 tabs 11/14/23 Unknown Rx insulin NPH isoph U-100 human 100 50 unit subcut BID 11/14/23 Unknown History unit/mL (3 mL) subcutaneous pen (Novolin N FlexPen) insulin lispro 100 unit/mL 10 unit subcut TID 11/14/23 Unknown History subcutaneous pen (Humalog KwikPen (U-100) Insulin) prazosin 1 mg capsule 1 mg PO QHS 30 days #30 caps 11/14/23 Unknown Rx aripiprazole 5 mg tablet (Abilify) 5 mg PO QHS 30 days #30 tabs 11/28/23 Unknown Rx ondansetron 4 mg disintegrating 4 mg PO Q8H PRN PRN Nausea #20 tabs 12/12/23 Unknown Rx tablet Allergy/AdvReac Type Severity Reaction Status Date / Time doxycycline Allergy Severe rash Verified 04/24/24 09:48 amoxicillin (Amoxicillin) Allergy Unknown Verified 04/24/24 09:48 asenapine maleate (From Allergy Unknown Verified 04/24/24 09:48 Saphris) cephalexin AdvReac Intermediate upset Verified 04/24/24 09:48 stomach Family History Mother Hypertension Brain aneurysm Father Diabetes Hypertension Grandmother Cancer liver throat kidney Diabetes Hypertension Heart disease CVA (cerebral vascular accident) Breast cancer Grandfather Kidney disease Hypertension CVA (cerebral vascular accident) Surgical History H/O lateral meniscus repair of left knee Social History household members: spouse Smoking Status: Current every day smoker tobacco type: e-cigarettes alcohol intake: never substance use type: does not use caffeine: Yes frequency: 5-6 times per week seatbelt use: always do you feel safe at home: Yes additional social history: Jonathan- Unemployed Patient is on disability ROS ROS ED Constitutional Constitutional ED: Denies chills or fever(s) Eyes Eyes: Reports blurry vision; Denies change in vision ENT ENT ED: Denies rhinorrhea or sore throat Cardiovascular Cardiovascular: Reports chest pain; Denies palpitations Respiratory/Chest Respiratory/Chest: Reports dyspnea; Denies cough Gastrointestinal Gastrointestinal: Reports nausea; Denies vomiting Genitourinary Genitourinary ED: Denies dysuria or hematuria Musculoskeletal Musculoskeletal: Reports back pain and neck pain Integumentary Denies abscess or rash Neurologic Neurologic: Reports headache(s); Denies weakness Allergic/Immunologic Allergic/Immunologic ED: Denies mouth swelling or urticaria EXAM Physical Exam Const Vital Signs: 04/24/24 09:46 04/24/24 09:46 04/24/24 11:44 Temperature 97.3 F L Temperature Source Temporal Pulse Rate 95 93 85 Respiratory Rate 14 18 18 Blood Pressure 193/101 H 189/110 H 179/130 H Blood Pressure Mean 131 136 146 Pulse Ox 99 99 98 Oxygen Delivery Method Room Air Room Air Room Air 04/24/24 13:00 Temperature Temperature Source Pulse Rate Respiratory Rate 0 L Blood Pressure 172/91 H Blood Pressure Mean 115 Pulse Ox 98 Oxygen Delivery Method Positive well nourished and well developed General Appearance ED: well developed and NAD HEENT Reports moist mucous membranes Neck supple and no JVD Resp normal respiratory effort and clear to auscultation bilaterally Cardio regular rate and regular rhythm GI non-distended Palpation: soft Back/Spine General Back: CVA tenderness left Extremity normal to inspection General Extremety ED: Negative for edema or tenderness General Extremity: Negative for edema Neuro oriented x3, CN's II-XII intact bilaterally and no sensory deficits noted Sensorium / Orientation: alert Motor Exam: strength 5/5 throughout Psych mental status grossly normal MDM MDM MDM Narrative Medical decision making narrative: Differential diagnosis includes acute kidney injury, congestive heart failure, cardiac dysrhythmia, cardiac ischemia, electrolyte abnormality, urinary tract infection, pyelonephritis, ureteral calculus, viral illness, gastroenteritis. EKG will be obtained to assess for cardiac dysrhythmia and cardiac ischemia. Chest x-ray will be obtained to assess for pneumonia and congestive heart failure. CT scan of the abdomen and pelvis will be obtained to assess for pyelonephritis and ureteral calculus. CBC will be obtained to assess for leukocytosis and anemia. Comprehensive metabolic profile will be obtained to assess for hepatic function, renal function, and electrolyte abnormality. High- sensitivity troponin will be obtained to assess for cardiac ischemia. BNP will be obtained to assess for congestive heart failure. COVID-19, influenza, and RSV PCR will be obtained to assess for viral illness. Lab Data Attestation: I reviewed the patient's lab results. Lab results narrative: CBC was reviewed. There is a mild anemia with a hemoglobin of 11.9 and hematocrit of 36.1. Comprehensive metabolic profile was reviewed and was within normal limits. High-sensitivity troponin was reviewed and was normal. BNP was reviewed and was normal. Lipase was reviewed and was normal. Urinalysis was reviewed. There is a leukocyte esterase of 500 with 5-10 white blood cells, 5- 10 epithelial cells, and 5-10 red blood cells. There is 2+ bacteria. Occult blood was 150. Glucose was 1000. COVID-19 PCR was reviewed and was positive. Influenza PCR was reviewed and was negative for influenza A and influenza B. RSV PCR was reviewed and was negative. Labs: Laboratory Results - last 24 hr 04/24/24 04/24/24 10:31 10:51 WBC 8.8 RBC 4.31 Hgb 11.9 L Hct 36.1 L MCV 83.8 MCH 27.6 MCHC 33.0 RDW Std Deviation 40.4 RDW Coeff of Amada 13.2 Plt Count 119 L MPV 11.9 Immature Gran % (Auto) 0.300 Neut % (Auto) 74.2 H Lymph % (Auto) 17.7 L [place] % (Auto) 5.6 Eos % (Auto) 1.7 Baso % (Auto) 0.5 Absolute Neuts (auto) 6.5 Absolute Lymphs (auto) 1.55 Nucleated RBC % 0 Sodium 135 L Potassium 4.5 Chloride 103 Carbon Dioxide 27.0 Anion Gap 5 BUN 23 H Creatinine 0.74 Estim Creat Clear Calc 130.43 Est GFR (MDRD) Af Amer 111 Est GFR (MDRD) Non-Af 91 BUN/Creatinine Ratio 30.9 H Glucose 270 H Calcium 8.7 Total Bilirubin 0.70 AST 8 L ALT 18 Alkaline Phosphatase 49 Troponin I High Sens 3 B-Natriuretic Peptide 45.9 Total Protein 6.2 L Albumin 2.8 L Globulin 3.4 Albumin/Globulin Ratio 0.8 L Lipase 31 Urine Color Yellow Urine Clarity Sl. Cloudy Urine pH 7.0 Ur Specific [place] 1.015 Urine Protein 100 H Urine Glucose (UA) 1000 H Urine Ketones Negative Urine Occult Blood 150 H Urine Nitrite Negative Urine Bilirubin Negative Urine Urobilinogen 1 H Ur Leukocyte Esterase 500 H Urine RBC 5-10 SEEN Urine WBC 5-10 SEEN Ur Squamous Epith Cells 5-10 SEEN Amorphous Sediment 1+ Urine Bacteria 2+ Urine Mucus 0 SEEN Radiography Chest X-Ray - ED: 2 View, Read by ED Physician, Read by Radiologist and No Acute Disease Diagnostic Testing: Clinical Impression(s) from Imaging Studies Abdomen/Pelvis CT 04/24/24 10:31 IMPRESSION: Nonobstructive bilateral intrarenal calculi. Enlarged left ovary with a cystic mass within it. Correlation with pelvic sonogram recommended. Electronically Signed: Ahmet Murcia MD at 11:18 EDT , Chest X-Ray 04/24/24 11:04 IMPRESSION: Findings suggestive of mild linear atelectasis in the left midlung. Electronically Signed: Ahmet Murcia MD at 11:20 EDT , Transvaginal US 04/24/24 11:37 IMPRESSION: Enlarged left ovary with a complex cyst. This may represent an hemorrhagic cyst. Follow-up is recommended. Electronically Signed: Ahmet Murcia MD at 13:11 EDT , CT scan of the abdomen pelvis was obtained. There are nonobstructive bilateral intrarenal calculi. There is an enlarged left ovary with a cystic mass in it. This was interpreted by the radiologist and was also independently reviewed by myself. Radiologist recommended ultrasound to correlate with ovarian cyst. Because of the recommendation by the radiologist, pelvic ultrasound was obtained. There is a complex cyst in the left ovary that may represent a hemorrhagic cyst. There is no torsion noted. This was interpreted by the radiologist and was also independently reviewed by myself. PA and lateral chest x-ray was obtained. There are 2 views. On my independent interpretation, lung lara are clear. There is normal cardiac silhouette. Bony thorax is normal. There is no acute process noted. Radiologist also interpreted the x-ray and agrees. EKG Initial EKG: Attestation: I personally reviewed and interpreted this EKG as follows: Interpretation: Sinus Rhythm (92) and No Acute Injury Pattern Comments: EKG was obtained. On my independent interpretation, it showed a normal sinus rhythm with a rate of 92. NC interval, QRS interval, and QTc intervals were all normal. [place] was normal. There are no acute ST or T wave changes. Prior EKG tracings: available for review Prior: Unchanged (12/12/2023) Treatment and Re-Evaluation :: Patient was advised of her findings. Patient was instructed to follow-up with her primary care physician in 5 to 7 days. Patient was instructed to take Tylenol or ibuprofen as needed for any pain or fevers. Patient was instructed to return if worse in any way. Patient understood and was agreeable with the plan. All questions were answered. Discharge Plan Triage Chief Complaint: Flank Pain ED Provider: Noel Zhou Dx/Rx/DC Orders Clinical Impression: Ovarian cyst, COVID-19 Prescriptions: No Action gabapentin 300 mg capsule 1,200 mg PO BID Patient Comments: TAKE 1 CAPSULE BY MOUTH TWICE DAILY albuterol sulfate 90 mcg/actuation HFA aerosol inhaler 1 inh inhalation PRN PRN (Reason: Shortness Of Breath) Patient Comments: inhale 2 puffs every 4 hours as needed for wheezing and shortness of breath biotin 1 mg capsule 1 mg PO DAILY multivitamin Tablet 1 tab PO DAILY Adult 50 Plus Probiotic 4 billion cell capsule 4,000 mmu cells PO DAILY polyethylene glycol 3350 [Miralax] 17 gram/dose powder 4 g PO DAILY Qty: 850 1RF losartan 50 mg tablet 25 mg PO DAILY (DME) FreeStyle Chirag 2 Sensor Kit See Rx Instructions .ROUTE .MEDSUPPLY Qty: 2 1RF Rx Instructions: As directed (DME) FreeStyle Chirag 2 Nitro Misc See Rx Instructions .ROUTE .MEDSUPPLY Qty: 1 0RF Rx Instructions: As directed dulaglutide 3 mg/0.5 mL pen injector 3 mg subcut QWEEK Qty: 2 3RF omeprazole 40 mg capsule,delayed release(DR/EC) 40 mg PO DAILY Qty: 90 0RF metformin 500 mg tablet 1,000 mg PO BIDCM Qty: 90 1RF loratadine 10 mg tablet 10 mg PO DAILY Qty: 90 0RF cholecalciferol (vitamin D3) 1,250 mcg (50,000 unit) capsule 1,250 mcg PO QWEEK Rx Instructions: sunday insulin degludec [Tresiba FlexTouch U-100] 100 unit/mL (3 mL) insulin pen 40 unit SUBCUT DAILY Novolin N FlexPen 100 unit/mL (3 mL) insulin pen 50 unit subcut BID insulin lispro [Humalog KwikPen Insulin] 100 unit/mL insulin pen 10 unit subcut TID Rx Instructions: with meals buspirone 5 mg tablet 5 mg PO TID 30 Days Qty: 90 1RF prazosin 1 mg capsule 1 mg PO QHS 30 Days Qty: 30 0RF aripiprazole [Abilify] 5 mg tablet 5 mg PO QHS 30 Days Qty: 30 1RF ondansetron 4 mg tablet,disintegrating 4 mg PO Q8H PRN PRN (Reason: Nausea) Qty: 20 0RF Primary Care Provider: Nelly Michael Referrals: Nelly Michael, RADAR OPERATOR-C [Primary Care Provider] - 5-7 Days Print Language: Tunisian Disposition Disposition: Home, Self Care
--- NOTE | 2024-04-24 10:30 | EKG12_ITS ---
Test Reason : SOB, CP Blood Pressure : / mmHG Vent. Rate : 092 BPM Atrial Rate : 092 BPM P-R Int : 150 ms QRS Dur : 092 ms QT Int : 352 ms P-R-T Axes : 055 024 045 degrees QTc Int : 435 ms Normal sinus rhythm Cannot rule out Anterior infarct , age undetermined Abnormal ECG Confirmed by Isaias Evans ([id number]), publication editor KELLY CASTRO ([id number]) on 04/28/2024 10:45:32 AM Referred By: Confirmed By:Isaias Evans
--- NOTE | 2024-04-24 10:31 | CT_ITS ---
STUDY: CT ABDOMEN AND PELVIS WITHOUT CONTRAST REASON FOR EXAM: Female, 39 years old. Left flank pain. History of prior necrotizing fasciitis. RADIATION DOSAGE (If Supplied By Facility): CTDIvol = ( 21.53 ) mGy, DLP = ( 1183.22 ) mGycm TECHNIQUE: Transaxial images were obtained from the dome of the diaphragm to the symphysis pubis without oral contrast, and without intravenous contrast. Sagittal and coronal images were reconstructed. Individualized dose optimization techniques were used for this CT. COMPARISON: Comparison is made with prior study dated May 08, 2018. FINDINGS: Linear atelectasis and/or scarring in the posterior aspect of the lingular segment of the left upper lobe. Mild coronary calcification. Hepatomegaly. The gallbladder is contracted. There is mild splenomegaly. Normal pancreas. Normal bilateral adrenal glands. 2 mm nonobstructive calculus in the midpole calyx of the right kidney. Tiny nonobstructive left intrarenal calculi. Normal visualized stomach. Normal small intestine. Normal colon. The appendix is visualized and appears normal. Normal abdominal aorta. Normal inferior vena cava. Normal retroperitoneum. Normal urinary bladder. The left ovary is enlarged measuring 7 cm x 4 cm. Within it, there is a 4.3 cm x 3.7 cm cystic structure. Correlation with a sonogram of the pelvis recommended. Normal abdominal wall. Normal osseous structures. CT/Abdomen/Pelvis without Cont IMPRESSION: Nonobstructive bilateral intrarenal calculi. Enlarged left ovary with a cystic mass within it. Correlation with pelvic sonogram recommended. Electronically Signed: Ahmet Murcia MD at 11:18 EDT ,
[2024-04-24 10:52] LABS: Absolute Lymphocyte Count 1.55 X10^3/uL (0.83-4.51); Absolute Neutrophil Count 6.5 X10^3/uL (2.0-7.7); Basophil# 0.04 X10^3/uL; Basophil% 0.5 % (0-1); Eosinophil# 0.15 X10^3/uL; Eosinophils% 1.7 % (0-5); Hematocrit 36.1 % (37-47); Hemoglobin 11.9 g/dL (12.0-15.0); Lymphocyte # 1.55 X10^3/ul (0.83-4.51); Lymphocyte % 17.7 % (19-41); Mean Corpuscular Hgb 27.6 pg (27.0-32.0); Mean Corpuscular Volume 83.8 fL (81-99); Mean Platelet Vol. 11.9 fl (6.2-12.0); Monocyte# 0.49 X10^3/uL; Monocyte% 5.6 % (0-10); NRBC Flagged by Analyzer 0 % (0-5); Neutrophil % 74.2 % (47-70); Platelet Count 119 K/mm3 (150-450); RBC Distribution Width CV 13.2 % (11.6-14.6); RBC Distribution Width SD 40.4 fl (35.1-43.9); Red Blood Count 4.31 M/mm3 (4.2-5.4); White Blood Count 8.8 K/mm3 (4.4-11.0)
[2024-04-24 10:53] LABS: Mucous, Urine 0 SEEN /hpf (<or=2+)
[2024-04-24 10:57] LABS: Color, Urine Yellow (Yellow); Glucose, Dipstick 1000 mg/dl (Normal); Ketone-Dipstick Negative (Negative); Leukocyte Esterase-Dipstick 500 /ul (Negative); Nitrite-Dipstick Negative (Negative); Occult Blood-Urine 150 /ul (Negative); Protein-Dipstick 100 mg/dl (Negative); Specific Gravity, Urine 1.015 (1.002-1.030); Urine Bilirubin Dipstick Negative (Negative); Urine Clarity Sl. Cloudy (Clear); Urine Urobilinogen 1 mg/dl (Normal)
[2024-04-24 10:58] LABS: ALB/GLOB Ratio 0.8 RATIO (0.9-2.4); AST(SGOT) 8 U/L (15-37); Alanine Aminotransfer ALT/SGPT 18 U/L (13-56); Albumin, Serum 2.8 g/dL (3.2-5.0); Alkaline Phosphatase 49 U/L (45-117); Anion Gap 5 (5-15); BUN 23 mg/dL (7-18); BUN/Creat Ratio 30.9 RATIO (10-20); Calcium,Total 8.7 mg/dL (8.5-10.1); Chloride 103 mmol/L (98-107); Creatinine, Serum 0.74 mg/dL (0.55-1.02); EST Glomerular Filtration Rate 91 mL/min (>60); Est Glom Filt Rate - Afr Amer 111 mL/min (>60); Estimated Creatinine Clearance 130.43 ml/min; Globulin 3.4 g/dL (2.2-4.2); Glucose 270 mg/dL (74-106); Lipase 31 U/L (13-75); Potassium 4.5 mmol/L (3.5-5.1); Protein, Total 6.2 g/dL (6.4-8.2); Sodium Level 135 mmol/L (136-145); Troponin-I HS 3 pg/mL (3.0-54.0)
--- NOTE | 2024-04-24 11:04 | RAD_ITS ---
STUDY: X-RAY CHEST REASON FOR EXAM: Female, 39 years old. Dyspnea TECHNIQUE: PA and lateral views of the chest. COMPARISON: Comparison is made with prior chest radiograph dated December 12, 2023. FINDINGS: EKG electrodes are seen. Mild increase in markings in the left midlung suggestive of early atelectasis. Was not seen on prior study. There is no demonstrated pleural abnormality. Normal size heart. Normal mediastinum and woody. Normal visualized pulmonary arteries. Normal visualized aortic arch and descending thoracic aorta. Normal visualized thoracic spine. Normal visualized ribs, clavicles, and shoulders. There is no demonstrated abnormality of the visualized soft tissue structures of the upper abdomen. RAD/Chest PA and Lateral IMPRESSION: Findings suggestive of mild linear atelectasis in the left midlung. Electronically Signed: Ahmet Murcia MD at 11:20 EDT ,
[2024-04-24 11:08] LABS: Squamous Epithelial Cells - UA 5-10 SEEN /hpf (5-10)
[2024-04-24 11:09] LABS: Amorphous Sediment 1+; Bacteria 2+ /hpf (None Seen); Red Blood Cells-Urine 5-10 SEEN /hpf (0-5); White Blood Cells 5-10 SEEN /hpf (0-5)
[2024-04-24 11:14] LABS: BNP,B-Type NATRIURETIC PEPTIDE 45.9 pg/mL (0-100)
--- NOTE | 2024-04-24 11:37 | US_ITS ---
STUDY: ULTRASOUND OF THE FEMALE PELVIS - COMPLETE REASON FOR EXAM: Female, 39 years old. Ovarian cyst LMP: March 31, 2024. TECHNIQUE: Transvaginal TECHNICAL QUALITY: Adequate. COMPARISON: None. FINDINGS: The uterus is anteverted and is in a midline position. The uterus measures 9.9 cm x 6.8 cm x 4.9 cm. Normal uterine cervix. The endometrium measures 11 mm in thickness, and is heterogeneous (striated). There is no demonstrated endometrial mass. There is no demonstrated myometrial mass. I.U.D. - The patient does not have an I.U.D. The right ovary is visualized. The right ovary measures 3.1 cm x 2.1 cm x 2.6 cm. There is no right ovarian cyst or ovarian mass. There is no visualized right adnexal mass or complex lesion. There is normal arterial and normal venous vascularity. The left ovary is visualized. The left ovary measures 7.9 cm x 5.6 cm x 4.3 cm. There is a 5.4 cm x 4.5 cm x 3.5 cm complex cyst with echoes within it. Follow-up is recommended There is normal arterial and normal venous vascularity. There is minimal fluid in the cul-de-sac. US/Transvaginal Non- IMPRESSION: Enlarged left ovary with a complex cyst. This may represent an hemorrhagic cyst. Follow-up is recommended. Electronically Signed: Ahmet Murcia MD at 13:11 EDT ,
[2024-04-24 11:44] VITALS: BP 179/130; PULSE 85; RESP 18; O2SAT 98
[2024-04-24 13:00] VITALS: BP 172/91; RESP 0; O2SAT 98
[2024-04-24 14:43] VITALS: BP 155/96; PULSE 83; RESP 18; TEMP 36.4; O2SAT 98
== END 2024-04-24 14:46 | disposition home or self-care (01) ==
PROVIDERS: Emergency Provider Emergency Medicine; PCP Nurse Practitioner Family; Visit Provider Emergency Medicine
DX: U07.1 COVID-19 (principal); F31.9 Bipolar disorder, unspecified; E11.9 Type 2 diabetes mellitus without complications; Z79.4 Long term (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 of insulin; I10 Essential (primary) hypertension; N83.202 Unspecified ovarian cyst, left side; R10.9 Unspecified abdominal pain; Z79.85 Long-term (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 of injectable non-insulin antidiabetic drugs; Z79.84 Long term (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 of oral hypoglycemic drugs; Z79.899 Other long term (current) drug therapy; F41.8 Other specified anxiety disorders; F17.290 Nicotine dependence, other tobacco product, uncomplicated; R06.00 Dyspnea, unspecified
CPT/HCPCS: 71046; 74176; 76830; 80053; 81001; 83690; 83880; 84484; 85025; 87631; 93005; 99285; A4216

== ENCOUNTER → 2024-05-28 | Outpatient (CLI) | payer MEDICARE, SELFPAY ==
[2024-05-28 18:13] LABS: Anion Gap 5 (5-15); BUN 19 mg/dL (7-18); BUN/Creat Ratio 25.4 RATIO (10-20); Calcium,Total 9.1 mg/dL (8.5-10.1); Chloride 105 mmol/L (98-107); Creatinine, Serum 0.75 mg/dL (0.55-1.02); EST Glomerular Filtration Rate 91 mL/min (>60); Est Glom Filt Rate - Afr Amer 110 mL/min (>60); Glucose 298 mg/dL (74-106); Potassium 4.3 mmol/L (3.5-5.1); Sodium Level 135 mmol/L (136-145)
[2024-05-29 01:54] LABS: BNP,B-Type NATRIURETIC PEPTIDE 69.6 pg/mL (0-100)
== END | disposition home or self-care (01) ==
LOC: VSLAB 14:52
PROVIDERS: PCP Nurse Practitioner Family; Visit Provider Nurse Practitioner Family
DX: R60.9 Edema, unspecified (principal); R06.02 Shortness of breath
CPT/HCPCS: 36415; 80048; 83880

== ENCOUNTER 2024-06-08 21:21 | Inpatient (IN) | payer MEDICARE, MEDICAID, SELFPAY ==
[2024-06-08] VITALS (11 sets, daily range): BP systolic 58–212; BP diastolic 37–133; PULSE 95–133; RESP 15–23; TEMP 37.3–38.6; O2SAT 94–98; BMI 38.2
[2024-06-08 21:43] LABS: Mucous, Urine 0 SEEN /hpf (<or=2+)
[2024-06-08 21:50] LABS: Color, Urine Yellow (Yellow); Glucose, Dipstick 1000 mg/dl (Normal); Ketone-Dipstick Negative (Negative); Leukocyte Esterase-Dipstick 500 /ul (Negative); Nitrite-Dipstick Negative (Negative); Occult Blood-Urine 250 /ul (Negative); Protein-Dipstick 100 mg/dl (Negative); Urine Bilirubin Dipstick Negative (Negative); Urine Clarity Sl. Cloudy (Clear); Urine Urobilinogen Normal (Normal)
[2024-06-08 21:53] LABS: Internal QC Validated? YES +Cl - CLEAR BKGD; Pregnancy, Urine Negative Negative
[2024-06-08 21:55] LABS: Hematocrit 35.4 % (37-47); Hemoglobin 12.1 g/dL (12.0-15.0); Mean Corp Hgb Conc 34.2 g/dL (32-36); Mean Corpuscular Volume 81.9 fL (81-99); Platelet Count 112 K/mm3 (150-450); RBC Distribution Width CV 13.2 % (11.6-14.6); RBC Distribution Width SD 39.4 fl (35.1-43.9); Red Blood Count 4.32 M/mm3 (4.2-5.4); White Blood Count 4.1 K/mm3 (4.4-11.0)
[2024-06-08] MEDS: Ketorolac 15 MG/ML Vial IV (21:56)
[2024-06-08] MEDS: Ondansetron 4 MG/2 ML Vial IV (21:56)
[2024-06-08] MEDS: 0.9% Normal Saline (500mL Bag) 500 ML 1000 ML IV (21:56)
[2024-06-08 21:57] LABS: Bacteria RARE /hpf (None Seen); Red Blood Cells-Urine 25-50 SEEN /hpf (0-5); Squamous Epithelial Cells - UA 0-5 SEEN /hpf (5-10); White Blood Cells 50-100 SEEN /hpf (0-5)
[2024-06-08] MEDS: Acetaminophen 325 MG Tablet PO (21:57)
[2024-06-08 22:18] LABS: AST(SGOT) 12 U/L (15-37); Alanine Aminotransfer ALT/SGPT 18 U/L (13-56); Albumin, Serum 2.7 g/dL (3.2-5.0); Alkaline Phosphatase 85 U/L (45-117); Anion Gap 10 (5-15); BUN 22 mg/dL (7-18); BUN/Creat Ratio 14.8 RATIO (10-20); Bilirubin, Direct 0.45 mg/dL (0.00-0.30); Calcium,Total 8.8 mg/dL (8.5-10.1); Chloride 93 mmol/L (98-107); Creatinine, Serum 1.49 mg/dL (0.55-1.02); EST Glomerular Filtration Rate 41 mL/min (>60); Est Glom Filt Rate - Afr Amer 50 mL/min (>60); Estimated Creatinine Clearance 65.88 ml/min; Globulin 3.9 g/dL (2.2-4.2); Glucose 745 mg/dL (74-106); Lipase 16 U/L (13-75); Potassium 4.5 mmol/L (3.5-5.1); Protein, Total 6.6 g/dL (6.4-8.2); Sodium Level 128 mmol/L (136-145)
[2024-06-08] MEDS: Morphine 4 MG/ML Syringe IV (22:22)
[2024-06-08 22:27] LABS: Lactic Acid 4.4 mmol/L (0.4-1.9)
[2024-06-08 22:39] LABS: Blood Gas Specimen Type VEN; O2 Delivery Device Room Air; SITE Not entered; VBG BASE EXCESS 2 mmol/L (-1.0-3.5); VBG Bicarbonate 25 mmol/L (22-26); VBG PO2 77 mmHg (25-40); VBG SO2 97 % (50-70); VBG TCO2 26 mmol/L (23-33); VBG pCO2 32.1 mmHg (41-51)
[2024-06-08] MEDS: Insulin Lispro 100 UNIT/ML VIAL (ADMELOG) 10 UNIT IV (22:40)
[2024-06-08 22:57] LABS: Amphetamine Urine VISTA NEGATIVE (<1000 ng/mL); Barbiturate Urine VISTA NEGATIVE (< 200 ng/mL); Benzodiazepine Urine VISTA NEGATIVE (< 200 ng/mL); Cocaine Urine VISTA NEGATIVE (< 300 ng/mL); Ecstacy Urine VISTA NEGATIVE (< 500 ng/mL); Methadone Urine VISTA NEGATIVE (< 300 ng/mL); PCP Urine VISTA NEGATIVE (< 25 ng/mL); THC Urine VISTA NEGATIVE (< 50 ng/mL); Vista UDS pH Range 6
[2024-06-08] MEDS: 0.9% Normal Saline (1000mL) 1,000 ML 999 ML IV ×2 (23:37→23:58)
[2024-06-08] MEDS: Vancomycin HCl 1,750 MG in 0.9% Normal Saline (500mL Bag) 500 ML 250 MG IV (23:39)
[2024-06-08] MEDS: Cefepime HCl 2 GM in 0.9% Normal Saline (100mL MB+) 100 ML IV (23:39)
[2024-06-09] VITALS (32 sets, daily range): BP systolic 95–140; BP diastolic 37–82; PULSE 85–137; RESP 13–28; TEMP 36.3–40; O2SAT 92–99
[2024-06-09 00:29] LABS: Bedside Glucose 459 mg/dL (74-106)
[2024-06-09 01:50] LABS: Reflex Lactate? Y
[2024-06-09 02:29] LABS: Lactic Acid 1.3 mmol/L (0.4-1.9)
[2024-06-09] MEDS: Insulin Lispro 100 UNIT in 0.9% Normal Saline (100mL Bag) 99 ML 11.4 UNIT CONT INF (04:07)
[2024-06-09] MEDS: 0.9% Normal Saline (1000mL) 1,000 ML 999 ML IV (04:15)
[2024-06-09 05:32] LABS: Bedside Glucose 436 mg/dL (74-106)
[2024-06-09 05:47] LABS: Lactic Acid 1.7 mmol/L (0.4-1.9)
[2024-06-09] MEDS: busPIRone 5 MG Tablet PO ×3 (06:17→20:38)
[2024-06-09] MEDS: Enoxaparin 40 MG/0.4 ML Syringe SC (06:17)
[2024-06-09] MEDS: Nystatin Powder 15gm Bottle 1 APPLIC TOPICAL ×2 (06:18→14:53)
[2024-06-09] MEDS: Ondansetron 4 MG/2 ML Vial IV ×2 (06:35→20:34)
[2024-06-09] MEDS: KCL 20MEQ in 0.9% NS 20 MEQ/1,000 ML IV.SOLN. 150 MEQ IV (06:35)
[2024-06-09] MEDS: Morphine 2 MG/ML Syringe IV (06:37)
[2024-06-09 06:39] LABS: Bedside Glucose 351 mg/dL (74-106)
[2024-06-09 07:17] LABS: Bedside Glucose 280 mg/dL (74-106)
[2024-06-09 08:33] LABS: Bedside Glucose 275 mg/dL (74-106)
[2024-06-09] MEDS: Acetaminophen 500 MG Tablet PO ×2 (09:00→12:06)
[2024-06-09 09:39] LABS: Bedside Glucose 210 mg/dL (74-106)
[2024-06-09 09:39] LABS: Hemoglobin A1c 10.8 % (3.8-5.6)
[2024-06-09 09:43] LABS: Anion Gap 6 (5-15); BUN 27 mg/dL (7-18); BUN/Creat Ratio 21.3 RATIO (10-20); Chloride 106 mmol/L (98-107); Creatinine, Serum 1.27 mg/dL (0.55-1.02); EST Glomerular Filtration Rate 49 mL/min (>60); Est Glom Filt Rate - Afr Amer 60 mL/min (>60); Estimated Creatinine Clearance 77.84 ml/min; Glucose 242 mg/dL (74-106); Magnesium 1.8 mg/dL (1.6-2.6); Potassium 4.2 mmol/L (3.5-5.1); Sodium Level 136 mmol/L (136-145)
[2024-06-09 10:59] LABS: Bedside Glucose 183 mg/dL (74-106)
[2024-06-09] MEDS: ARIPiprazole 10 MG Tablet 15 MG PO (11:00)
[2024-06-09] MEDS: Lactobacillis Acidophilus 1 CAP PO (11:00)
[2024-06-09] MEDS: Loratadine 10 MG Tablet PO (11:01)
[2024-06-09] MEDS: oxyCODONE 5 MG Tablet PO (11:04)
[2024-06-09] MEDS: Cefepime HCl 2 GM in 0.9% Normal Saline (100mL MB+) 100 ML IV ×2 (11:05→21:27)
[2024-06-09 12:04] LABS: Bedside Glucose 167 mg/dL (74-106)
[2024-06-09] MEDS: Pantoprazole Sodium 40 MG in 0.9% Normal Saline (100mL MB+) 100 ML 330 MG IV (12:06)
[2024-06-09] MEDS: Sodium Phosphate/Na Biphos 40 MMOL in 0.9% Normal Saline (500mL Bag) 500 ML 62.5 MMOL IV (12:08)
[2024-06-09] MEDS: Insulin Glargine-YFGN 100 UNIT/ML Pen 20 UNIT SC (12:34)
[2024-06-09] MEDS: Vancomycin HCl 1,500 MG in 0.9% Normal Saline (500mL Bag) 500 ML 250 MG IV ×2 (12:39→23:19)
[2024-06-09 12:55] LABS: Bedside Glucose 169 mg/dL (74-106)
[2024-06-09 13:33] LABS: Anion Gap 4 (5-15); BUN 28 mg/dL (7-18); BUN/Creat Ratio 20.1 RATIO (10-20); Calcium,Total 7.9 mg/dL (8.5-10.1); Chloride 106 mmol/L (98-107); Creatinine, Serum 1.39 mg/dL (0.55-1.02); EST Glomerular Filtration Rate 44 mL/min (>60); Est Glom Filt Rate - Afr Amer 54 mL/min (>60); Estimated Creatinine Clearance 71.12 ml/min; Glucose 186 mg/dL (74-106); Potassium 4.2 mmol/L (3.5-5.1); Sodium Level 136 mmol/L (136-145)
[2024-06-09] MEDS: Lactated Ringers 1,000 ML 125 ML IV ×2 (14:53→23:04)
[2024-06-09] MEDS: Pregabalin 75 MG Capsule 150 MG PO ×2 (14:57→20:37)
[2024-06-09] MEDS: Insulin Lispro 100 UNIT/ML INSULN.PEN SC (16:59)
[2024-06-09 17:14] LABS: Bedside Glucose 330 mg/dL (74-106)
[2024-06-09 18:36] LABS: Anion Gap 5 (5-15); BUN 30 mg/dL (7-18); BUN/Creat Ratio 19.1 RATIO (10-20); Calcium,Total 7.4 mg/dL (8.5-10.1); Chloride 105 mmol/L (98-107); Creatinine, Serum 1.57 mg/dL (0.55-1.02); EST Glomerular Filtration Rate 39 mL/min (>60); Est Glom Filt Rate - Afr Amer 47 mL/min (>60); Estimated Creatinine Clearance 62.96 ml/min; Glucose 355 mg/dL (74-106); Potassium 4.4 mmol/L (3.5-5.1); Sodium Level 134 mmol/L (136-145)
[2024-06-09] MEDS: 0.9% Saline Lock 10 ML Syringe IV (20:34)
[2024-06-09] MEDS: Acetaminophen 500 MG Tablet 1000 MG PO (20:37)
[2024-06-09] MEDS: Prazosin HCl 1 MG Capsule PO (20:38)
[2024-06-09] MEDS: 0.9% Normal Saline (500mL Bag) 500 ML 15 ML IV (21:31)
[2024-06-09 22:59] LABS: Anion Gap 6 (5-15); BUN 32 mg/dL (7-18); BUN/Creat Ratio 22.9 RATIO (10-20); Calcium,Total 7.3 mg/dL (8.5-10.1); Chloride 103 mmol/L (98-107); EST Glomerular Filtration Rate 44 mL/min (>60); Est Glom Filt Rate - Afr Amer 53 mL/min (>60); Estimated Creatinine Clearance 70.61 ml/min; Glucose 394 mg/dL (74-106); Potassium 4.5 mmol/L (3.5-5.1); Sodium Level 131 mmol/L (136-145)
[2024-06-10] VITALS (30 sets, daily range): BP systolic 88–152; BP diastolic 48–98; PULSE 78–108; RESP 15–22; TEMP 37.5–38.8; O2SAT 91–98; BMI 41.4
[2024-06-10] MEDS: Acetaminophen 500 MG Tablet 1000 MG PO ×3 (04:09→20:12)
[2024-06-10] MEDS: busPIRone 5 MG Tablet PO ×3 (05:28→20:12)
[2024-06-10] MEDS: Pregabalin 75 MG Capsule 150 MG PO ×3 (05:28→20:12)
[2024-06-10] MEDS: Enoxaparin 40 MG/0.4 ML Syringe SC ×3 (05:28→20:12)
[2024-06-10] MEDS: 0.9% Saline Lock 10 ML Syringe IV (05:38)
[2024-06-10] MEDS: levoFLOXacin IV 750 MG/150 ML BAG 100 MG IV (05:38)
[2024-06-10 05:51] LABS: Absolute Lymphocyte Count 0.33 X10^3/uL (0.83-4.51); Absolute Neutrophil Count 4.6 X10^3/uL (2.0-7.7); Basophil# 0.02 X10^3/uL; Basophil% 0.4 % (0-1); Eosinophil# 0.04 X10^3/uL; Eosinophils% 0.7 % (0-5); Hematocrit 28.1 % (37-47); Hemoglobin 9.6 g/dL (12.0-15.0); Lymphocyte # 0.33 X10^3/ul (0.83-4.51); Lymphocyte % 6.1 % (19-41); Mean Corp Hgb Conc 34.2 g/dL (32-36); Mean Corpuscular Hgb 28.2 pg (27.0-32.0); Mean Corpuscular Volume 82.4 fL (81-99); Mean Platelet Vol. 12.7 fl (6.2-12.0); Monocyte# 0.39 X10^3/uL; Monocyte% 7.2 % (0-10); NRBC Flagged by Analyzer 0 % (0-5); Neutrophil # 4.61 X10^3/uL (2.7-7.7); Neutrophil % 84.5 % (47-70); POSITIVE COUNT YES; POSITIVE DIFFERENTIAL YES; POSITIVE MORPHOLOGY YES; Platelet Count 88 K/mm3 (150-450); RBC Distribution Width CV 13.4 % (11.6-14.6); RBC Distribution Width SD 40.5 fl (35.1-43.9); Red Blood Count 3.41 M/mm3 (4.2-5.4); White Blood Count 5.5 K/mm3 (4.4-11.0)
[2024-06-10 06:26] LABS: Anion Gap 7 (5-15); BUN 32 mg/dL (7-18); Calcium,Total 7.3 mg/dL (8.5-10.1); Chloride 102 mmol/L (98-107); Creatinine, Serum 1.39 mg/dL (0.55-1.02); EST Glomerular Filtration Rate 44 mL/min (>60); Est Glom Filt Rate - Afr Amer 54 mL/min (>60); Estimated Creatinine Clearance 73.81 ml/min; Glucose 362 mg/dL (74-106); Magnesium 1.6 mg/dL (1.6-2.6); Phosphorus 1.7 mg/dL (2.5-4.9); Potassium 4.2 mmol/L (3.5-5.1); Sodium Level 130 mmol/L (136-145)
[2024-06-10 06:37] LABS: Differential Indicated SCAN CRITERIA MET
[2024-06-10] MEDS: Magnesium Sulfate 2 GM in Dextrose 5%-Water (100mL Bag) 100 ML IV (07:51)
[2024-06-10] MEDS: Insulin Lispro 100 UNIT/ML INSULN.PEN SC ×3 (07:52→16:25)
[2024-06-10] MEDS: Insulin Lispro 100 UNIT/ML INSULN.PEN 10 UNIT SC ×3 (07:53→16:26)
[2024-06-10] MEDS: Sodium Phosphate/Na Biphos 40 MMOL in 0.9% Normal Saline (500mL Bag) 500 ML 62.5 MMOL IV (07:59)
[2024-06-10] MEDS: oxyCODONE 5 MG Tablet PO ×2 (08:12→20:12)
[2024-06-10] MEDS: Loratadine 10 MG Tablet PO (08:13)
[2024-06-10] MEDS: ARIPiprazole 10 MG Tablet 15 MG PO (08:13)
[2024-06-10] MEDS: Lactobacillis Acidophilus 1 CAP PO (08:13)
[2024-06-10 08:27] LABS: Bedside Glucose 322 mg/dL (74-106)
[2024-06-10] MEDS: Cefepime HCl 2 GM in 0.9% Normal Saline (100mL MB+) 100 ML IV ×2 (10:11→20:12)
[2024-06-10] MEDS: Pantoprazole Sodium 40 MG in 0.9% Normal Saline (100mL MB+) 100 ML 330 MG IV (11:07)
[2024-06-10] MEDS: Insulin Glargine-YFGN 100 UNIT/ML Pen 40 UNIT SC (11:11)
[2024-06-10 11:31] LABS: Bedside Glucose 319 mg/dL (74-106)
[2024-06-10 16:34] LABS: Bedside Glucose 243 mg/dL (74-106)
[2024-06-10] MEDS: Prazosin HCl 1 MG Capsule PO (20:34)
[2024-06-10 20:36] LABS: Bedside Glucose 304 mg/dL (74-106)
[2024-06-11] VITALS (16 sets, daily range): BP systolic 120–161; BP diastolic 63–90; PULSE 92–102; RESP 14–25; TEMP 37.1–39.4; O2SAT 87–96; BMI 42.5
[2024-06-11 03:44] LABS: Absolute Lymphocyte Count 0.47 X10^3/uL (0.83-4.51); Absolute Neutrophil Count 2.9 X10^3/uL (2.0-7.7); Basophil# 0.01 X10^3/uL; Basophil% 0.3 % (0-1); Eosinophil# 0.03 X10^3/uL; Eosinophils% 0.8 % (0-5); Hematocrit 27.9 % (37-47); Hemoglobin 9.4 g/dL (12.0-15.0); Lymphocyte # 0.47 X10^3/ul (0.83-4.51); Lymphocyte % 12.3 % (19-41); Mean Corp Hgb Conc 33.7 g/dL (32-36); Mean Corpuscular Hgb 27.6 pg (27.0-32.0); Mean Corpuscular Volume 82.1 fL (81-99); Mean Platelet Vol. 13.9 fl (6.2-12.0); Monocyte# 0.38 X10^3/uL; Monocyte% 9.9 % (0-10); NRBC Flagged by Analyzer 0 % (0-5); Neutrophil # 2.87 X10^3/uL (2.7-7.7); Neutrophil % 74.9 % (47-70); POSITIVE COUNT YES; POSITIVE DIFFERENTIAL YES; POSITIVE MORPHOLOGY YES; Platelet Count 72 K/mm3 (150-450); RBC Distribution Width CV 13.6 % (11.6-14.6); RBC Distribution Width SD 40.6 fl (35.1-43.9); White Blood Count 3.8 K/mm3 (4.4-11.0)
[2024-06-11 03:52] LABS: Differential Indicated SCAN CRITERIA MET
[2024-06-11 04:04] LABS: ALB/GLOB Ratio 0.4 RATIO (0.9-2.4); AST(SGOT) 30 U/L (15-37); Alanine Aminotransfer ALT/SGPT 28 U/L (13-56); Albumin, Serum 1.7 g/dL (3.2-5.0); Alkaline Phosphatase 112 U/L (45-117); Anion Gap 7 (5-15); BUN 28 mg/dL (7-18); BUN/Creat Ratio 22.4 RATIO (10-20); Calcium,Total 7.3 mg/dL (8.5-10.1); Chloride 102 mmol/L (98-107); Creatinine, Serum 1.25 mg/dL (0.55-1.02); EST Glomerular Filtration Rate 50 mL/min (>60); Est Glom Filt Rate - Afr Amer 61 mL/min (>60); Estimated Creatinine Clearance 82.07 ml/min; Globulin 4.1 g/dL (2.2-4.2); Glucose 295 mg/dL (74-106); Magnesium 2.3 mg/dL (1.6-2.6); Phosphorus 1.7 mg/dL (2.5-4.9); Protein, Total 5.8 g/dL (6.4-8.2); Sodium Level 130 mmol/L (136-145)
[2024-06-11 05:04] LABS: Differential Comment SCANNED; Platelet Estimate SLT DEC (ADEQ); Red Cell Morphology NORM C+C NORMAL (NORM C&C)
[2024-06-11] MEDS: Potassium Phosphate 40 MM in 0.9% Normal Saline (500mL Bag) 500 ML 62.5 MM IV (05:26)
[2024-06-11] MEDS: 0.9% Saline Lock 10 ML Syringe IV ×7 (05:26→19:43)
[2024-06-11] MEDS: busPIRone 5 MG Tablet PO ×3 (05:27→19:36)
[2024-06-11] MEDS: Pregabalin 75 MG Capsule 150 MG PO ×3 (05:27→19:42)
[2024-06-11] MEDS: Insulin Lispro 100 UNIT/ML INSULN.PEN 15 UNIT SC ×3 (08:31→16:30)
[2024-06-11] MEDS: Insulin Lispro 100 UNIT/ML INSULN.PEN SC ×3 (08:33→16:30)
[2024-06-11] MEDS: Pantoprazole Sodium 40 MG in 0.9% Normal Saline (100mL MB+) 100 ML 330 MG IV (09:37)
[2024-06-11] MEDS: ARIPiprazole 10 MG Tablet 15 MG PO (09:40)
[2024-06-11] MEDS: Loratadine 10 MG Tablet PO (09:40)
[2024-06-11] MEDS: Lactobacillis Acidophilus 1 CAP PO (09:40)
[2024-06-11] MEDS: Insulin Glargine-YFGN 100 UNIT/ML Pen 25 UNIT SC ×2 (09:45→19:43)
[2024-06-11] MEDS: Cefepime HCl 2 GM in 0.9% Normal Saline (100mL MB+) 100 ML IV ×2 (10:24→19:42)
[2024-06-11 11:00] LABS: Bedside Glucose 230 mg/dL (74-106)
[2024-06-11 11:34] LABS: Bedside Glucose 290 mg/dL (74-106)
[2024-06-11] MEDS: Polyethylene Glycol 3350 17 GM PACKET PO (11:50)
[2024-06-11] MEDS: Acetaminophen 500 MG Tablet 1000 MG PO ×2 (12:18→19:43)
[2024-06-11] MEDS: Nystatin Powder 15gm Bottle 1 APPLIC TOPICAL (13:48)
[2024-06-11 14:42] LABS: Troponin-I HS 8 pg/mL (3.0-54.0)
[2024-06-11 16:31] LABS: Troponin-I HS 7 pg/mL (3.0-54.0)
[2024-06-11 16:53] LABS: Bedside Glucose 209 mg/dL (74-106)
[2024-06-11] MEDS: Prazosin HCl 1 MG Capsule PO (19:36)
[2024-06-11] MEDS: oxyCODONE 5 MG Tablet PO (19:42)
[2024-06-11] MEDS: Ondansetron 4 MG/2 ML Vial IV (19:42)
[2024-06-11 20:05] LABS: Bedside Glucose 221 mg/dL (74-106)
[2024-06-11 20:37] LABS: Troponin-I HS 4 pg/mL (3.0-54.0)
[2024-06-12] VITALS (7 sets, daily range): BP systolic 130–162; BP diastolic 71–91; PULSE 82–91; RESP 16–18; TEMP 37.1–38.2; O2SAT 90–96; BMI 42.9
[2024-06-12 04:32] LABS: Absolute Lymphocyte Count 0.73 X10^3/uL (0.83-4.51); Absolute Neutrophil Count 2.8 X10^3/uL (2.0-7.7); Basophil# 0.02 X10^3/uL; Basophil% 0.5 % (0-1); Eosinophil# 0.07 X10^3/uL; Eosinophils% 1.6 % (0-5); Hematocrit 26.1 % (37-47); Lymphocyte # 0.73 X10^3/ul (0.83-4.51); Lymphocyte % 16.9 % (19-41); Mean Corp Hgb Conc 34.5 g/dL (32-36); Mean Corpuscular Hgb 28.1 pg (27.0-32.0); Mean Corpuscular Volume 81.6 fL (81-99); Monocyte# 0.63 X10^3/uL; Monocyte% 14.6 % (0-10); NRBC Flagged by Analyzer 0 % (0-5); Neutrophil # 2.79 X10^3/uL (2.7-7.7); Neutrophil % 64.5 % (47-70); POSITIVE COUNT YES; Platelet Count 84 K/mm3 (150-450); RBC Distribution Width CV 13.9 % (11.6-14.6); RBC Distribution Width SD 41.1 fl (35.1-43.9); White Blood Count 4.3 K/mm3 (4.4-11.0)
[2024-06-12 04:44] LABS: Anion Gap 5 (5-15); BUN 24 mg/dL (7-18); BUN/Creat Ratio 23.1 RATIO (10-20); Calcium,Total 7.4 mg/dL (8.5-10.1); Chloride 106 mmol/L (98-107); Creatinine, Serum 1.04 mg/dL (0.55-1.02); EST Glomerular Filtration Rate 62 mL/min (>60); Est Glom Filt Rate - Afr Amer 75 mL/min (>60); Estimated Creatinine Clearance 100.18 ml/min; Glucose 254 mg/dL (74-106); Phosphorus 1.5 mg/dL (2.5-4.9); Potassium 4.5 mmol/L (3.5-5.1); Sodium Level 132 mmol/L (136-145)
[2024-06-12] MEDS: Pregabalin 75 MG Capsule 150 MG PO ×2 (05:21→22:11)
[2024-06-12] MEDS: 0.9% Saline Lock 10 ML Syringe IV ×2 (05:21→22:13)
[2024-06-12] MEDS: busPIRone 5 MG Tablet PO ×3 (05:21→23:30)
[2024-06-12] MEDS: Sodium Phosphate/Na Biphos 40 MMOL in 0.9% Normal Saline (500mL Bag) 500 ML 62.5 MMOL IV (05:39)
[2024-06-12] MEDS: Insulin Lispro 100 UNIT/ML INSULN.PEN 15 UNIT SC (07:32)
[2024-06-12] MEDS: Insulin Lispro 100 UNIT/ML INSULN.PEN SC ×3 (07:32→16:32)
[2024-06-12] MEDS: ARIPiprazole 10 MG Tablet 15 MG PO (07:33)
[2024-06-12] MEDS: Loratadine 10 MG Tablet PO (07:33)
[2024-06-12] MEDS: Lactobacillis Acidophilus 1 CAP PO (07:33)
[2024-06-12 07:55] LABS: Bedside Glucose 206 mg/dL (74-106)
[2024-06-12] MEDS: Furosemide 40 MG/4 ML Vial IV ×2 (09:22→18:04)
[2024-06-12] MEDS: Enoxaparin 40 MG/0.4 ML Syringe SC ×2 (09:22→23:03)
[2024-06-12] MEDS: Insulin Glargine-YFGN 100 UNIT/ML Pen 32 UNIT SC ×2 (11:20→22:57)
[2024-06-12 11:41] LABS: Bedside Glucose 280 mg/dL (74-106)
[2024-06-12] MEDS: Ciprofloxacin 400 MG/200 ML BAG 200 MG IV ×2 (14:08→22:36)
[2024-06-12] MEDS: Pantoprazole Sodium 40 MG in 0.9% Normal Saline (100mL MB+) 100 ML 330 MG IV (15:13)
[2024-06-12] MEDS: Acetaminophen 500 MG Tablet 1000 MG PO (15:19)
[2024-06-12] MEDS: Insulin Lispro 100 UNIT/ML INSULN.PEN 18 UNIT SC (16:34)
[2024-06-12 16:54] LABS: Bedside Glucose 342 mg/dL (74-106)
[2024-06-12] MEDS: Ondansetron 4 MG/2 ML Vial IV (16:58)
[2024-06-12] MEDS: Albuterol 2.5 MG/3 ML VIAL.NEB. INHALATION (17:16)
[2024-06-12] MEDS: Prazosin HCl 1 MG Capsule PO (23:30)
[2024-06-12 23:36] LABS: Bedside Glucose 234 mg/dL (74-106)
[2024-06-13] MEDS: Ondansetron 4 MG/2 ML Vial IV (00:57)
[2024-06-13 01:59] VITALS: BMI 42.9
[2024-06-13 04:20] VITALS: BP 142/62; PULSE 88; RESP 18; TEMP 37.1; O2SAT 97
[2024-06-13] MEDS: busPIRone 5 MG Tablet PO ×2 (05:25→14:41)
[2024-06-13] MEDS: Nystatin Powder 15gm Bottle 1 APPLIC TOPICAL (05:26)
[2024-06-13] MEDS: Pregabalin 75 MG Capsule 150 MG PO ×2 (05:26→14:41)
[2024-06-13 06:35] LABS: Absolute Lymphocyte Count 0.91 X10^3/uL (0.83-4.51); Absolute Neutrophil Count 2.4 X10^3/uL (2.0-7.7); Basophil# 0.01 X10^3/uL; Basophil% 0.2 % (0-1); Eosinophils% 2.4 % (0-5); Hematocrit 24.7 % (37-47); Hemoglobin 8.2 g/dL (12.0-15.0); Lymphocyte # 0.91 X10^3/ul (0.83-4.51); Lymphocyte % 22.1 % (19-41); Mean Corp Hgb Conc 33.2 g/dL (32-36); Mean Corpuscular Hgb 27.1 pg (27.0-32.0); Mean Corpuscular Volume 81.5 fL (81-99); Mean Platelet Vol. 13.6 fl (6.2-12.0); Monocyte# 0.53 X10^3/uL; Monocyte% 12.9 % (0-10); NRBC Flagged by Analyzer 0 % (0-5); Neutrophil # 2.39 X10^3/uL (2.7-7.7); Neutrophil % 58.3 % (47-70); POSITIVE COUNT YES; Platelet Count 88 K/mm3 (150-450); RBC Distribution Width SD 41.5 fl (35.1-43.9); Red Blood Count 3.03 M/mm3 (4.2-5.4); White Blood Count 4.1 K/mm3 (4.4-11.0)
[2024-06-13 07:04] LABS: Anion Gap 5 (5-15); BUN 21 mg/dL (7-18); BUN/Creat Ratio 23.4 RATIO (10-20); Calcium,Total 7.5 mg/dL (8.5-10.1); Chloride 104 mmol/L (98-107); EST Glomerular Filtration Rate 74 mL/min (>60); Est Glom Filt Rate - Afr Amer 89 mL/min (>60); Estimated Creatinine Clearance 116.28 ml/min; Glucose 257 mg/dL (74-106); Potassium 4.1 mmol/L (3.5-5.1); Sodium Level 133 mmol/L (136-145)
[2024-06-13] MEDS: Insulin Lispro 100 UNIT/ML INSULN.PEN 22 UNIT SC ×2 (08:20→12:37)
[2024-06-13] MEDS: Insulin Lispro 100 UNIT/ML INSULN.PEN SC ×2 (08:21→12:37)
[2024-06-13 08:42] LABS: Bedside Glucose 230 mg/dL (74-106)
[2024-06-13 09:32] VITALS: BP 157/80; PULSE 82; RESP 16; TEMP 37.1; O2SAT 99
[2024-06-13] MEDS: Ciprofloxacin 400 MG/200 ML BAG 200 MG IV (09:43)
[2024-06-13] MEDS: 0.9% Saline Lock 10 ML Syringe IV (09:50)
[2024-06-13] MEDS: Furosemide 40 MG/4 ML Vial IV (09:50)
[2024-06-13] MEDS: Losartan Potassium 50 MG Tablet PO (09:51)
[2024-06-13] MEDS: Loratadine 10 MG Tablet PO (09:55)
[2024-06-13] MEDS: Sodium Phosphate/Na Biphos 40 MMOL in 0.9% Normal Saline (500mL Bag) 500 ML 62.5 MMOL IV (10:00)
[2024-06-13] MEDS: Insulin Glargine-YFGN 100 UNIT/ML Pen 40 UNIT SC (10:05)
[2024-06-13] MEDS: Enoxaparin 40 MG/0.4 ML Syringe SC (10:10)
[2024-06-13 11:25] LABS: Bedside Glucose 228 mg/dL (74-106)
[2024-06-13] MEDS: ARIPiprazole 10 MG Tablet 15 MG PO (12:36)
[2024-06-13] MEDS: Lactobacillis Acidophilus 1 CAP PO (12:36)
[2024-06-13 14:45] VITALS: BP 175/87; PULSE 85; RESP 16; TEMP 37.1; O2SAT 96
== END 2024-06-13 15:59 | disposition home or self-care (01) | DRG 871 ==
LOC: ED 06-09 02:08 → PCU 06-09 02:40 → ICU 06-09 03:54 → MS3 06-12 15:11
PROVIDERS: Admitting Provider Internal Medicine; Emergency Provider Emergency Medicine; PCP Nurse Practitioner Family; Visit Provider Internal Medicine
DX: A41.51 Sepsis due to Escherichia coli [E. coli] (principal); E11.00 Type 2 diabetes mellitus with hyperosmolarity without nonketotic hyperglycemic-hyperosmolar coma (NKHHC); Z68.41 Body mass index [BMI] 40.0-44.9, adult; N17.9 Acute kidney failure, unspecified; N30.01 Acute cystitis with hematuria; E83.39 Other disorders of phosphorus metabolism; G35 Multiple sclerosis; E11.42 Type 2 diabetes mellitus with diabetic polyneuropathy; I10 Essential (primary) hypertension; F31.9 Bipolar disorder, unspecified; K76.0 Fatty (change of) liver, not elsewhere classified; F60.3 Borderline personality disorder; Z79.4 Long term (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 of insulin; M79.7 Fibromyalgia; K21.9 Gastro-esophageal reflux disease without esophagitis; E66.01 Morbid (severe) obesity due to excess calories; F17.290 Nicotine dependence, other tobacco product, uncomplicated; E87.70 Fluid overload, unspecified; T38.3X6A Underdosing of insulin and oral hypoglycemic [antidiabetic] drugs, initial encounter; N80.122 Deep endometriosis of left ovary; N83.202 Unspecified ovarian cyst, left side; R16.2 Hepatomegaly with splenomegaly, not elsewhere classified; Z68.38 Body mass index [BMI] 38.0-38.9, adult; F90.9 Attention-deficit hyperactivity disorder, unspecified type; F43.10 Post-traumatic stress disorder, unspecified; Z88.0 Allergy status to penicillin; Z79.84 Long term (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 of oral hypoglycemic drugs; Z79.899 Other long term (current) drug therapy
CPT/HCPCS: 36415; 71045; 74177; 80048; 80053; 80076; 80307; 81001; 81025; 82009; 82803; 82962; 83036; 83605; 83690; 83735; 84100; 84443; 84484; 85025; 85027; 87040; 87077; 87086; 87088; 87186; 87631; 87633; 93005; 94640; 97802; 97803; 99285; 99406; J7030; J7040; J7120; Q9967; A4216; J0744; J1940; J2405

== ENCOUNTER → 2024-06-25 | Outpatient (CLI) | payer MEDICARE, MEDICAID, SELFPAY ==
[2024-06-25 17:05] LABS: Absolute Lymphocyte Count 1.76 X10^3/uL (0.83-4.51); Absolute Neutrophil Count 4.3 X10^3/uL (2.0-7.7); Basophil# 0.06 X10^3/uL; Basophil% 0.9 % (0-1); Eosinophil# 0.13 X10^3/uL; Eosinophils% 1.9 % (0-5); Hematocrit 35.2 % (37-47); Hemoglobin 11.8 g/dL (12.0-15.0); Lymphocyte # 1.76 X10^3/ul (0.83-4.51); Lymphocyte % 26.3 % (19-41); Mean Corp Hgb Conc 33.5 g/dL (32-36); Mean Corpuscular Hgb 27.3 pg (27.0-32.0); Mean Corpuscular Volume 81.5 fL (81-99); Mean Platelet Vol. 11.8 fl (6.2-12.0); Monocyte# 0.37 X10^3/uL; Monocyte% 5.5 % (0-10); NRBC Flagged by Analyzer 0 % (0-5); Neutrophil # 4.33 X10^3/uL (2.7-7.7); Platelet Count 279 K/mm3 (150-450); Red Blood Count 4.32 M/mm3 (4.2-5.4); White Blood Count 6.7 K/mm3 (4.4-11.0)
[2024-06-25 18:05] LABS: ALB/GLOB Ratio 0.7 RATIO (0.9-2.4); AST(SGOT) 11 U/L (15-37); Alanine Aminotransfer ALT/SGPT 18 U/L (13-56); Albumin, Serum 2.8 g/dL (3.2-5.0); Alkaline Phosphatase 112 U/L (45-117); Anion Gap 8 (5-15); BUN 24 mg/dL (7-18); BUN/Creat Ratio 22.2 RATIO (10-20); Calcium,Total 8.8 mg/dL (8.5-10.1); Chloride 98 mmol/L (98-107); Creatinine, Serum 1.08 mg/dL (0.55-1.02); EST Glomerular Filtration Rate 59 mL/min (>60); Est Glom Filt Rate - Afr Amer 72 mL/min (>60); Globulin 4.3 g/dL (2.2-4.2); Potassium 4.2 mmol/L (3.5-5.1); Protein, Total 7.1 g/dL (6.4-8.2); Sodium Level 130 mmol/L (136-145)
[2024-06-26 14:16] LABS: Glucose 487 mg/dL (74-106)
== END | disposition home or self-care (01) ==
LOC: VSLAB 13:53
PROVIDERS: PCP Nurse Practitioner Family
DX: R60.9 Edema, unspecified (principal); D69.6 Thrombocytopenia, unspecified
CPT/HCPCS: 36415; 80053; 85025

== ENCOUNTER 2024-07-11 07:51 | Emergency (ER) | payer MEDICARE, MEDICAID, SELFPAY ==
[2024-07-11 07:52] VITALS: BP 174/104; PULSE 101; RESP 18; TEMP 37.1; O2SAT 100; BMI 39.5
--- NOTE | 2024-07-11 08:04 | ED.RN ---
PT SENT OVER FROM URGENT CARE BECAUSE THEY WERE SEEING HER FOR AN EYE ISSUE AND HER BP WAS RECORDED THERE AT 182/124. B IS DOWN FROM THAT BUT STILL ELEVATED. PT DID NOT TAKE HER BP MEDS THIS MORNING. PT C/O OVERALL FEELING ILL AND THIUGHT SHE HAD A SINUS INFECTION THAT IS AFFEECTING HER EYE WITH SWELLING AND THE FEELING OF A FILM OVER HER EYE.
[2024-07-11] MEDS: Tetracaine 0.5% Ophthalmic Bottle 4 DRP RIGHT EYE (09:19)
[2024-07-11 09:52] VITALS: BP 171/95; PULSE 92; RESP 16; O2SAT 97
[2024-07-11 10:15] VITALS: BP 171/95; PULSE 83; RESP 17; TEMP 36.7; O2SAT 97
--- NOTE | 2024-07-11 10:17 | EX.ED.VIS.EY ---
HPI History of Present Illness Chief Complaint: Eye Problem Narrative Narrative: Patient is a 39-year-old female who is presenting to the ER today with chief complaint swelling to her left upper eyelid for the past 3 days, cough and congestion for the past 5 days, sinus headache, left ear fullness. Patient also with blood pressure is elevated, she has not taken her blood pressure medication this morning. Patient had an appointment with urgent care this morning, patient's was recommended to come to the ER and urgent care would not see her for all of her different complaints. Patient knows that her blood pressure was high, she did not take her medication this morning. Patient has mild blurry vision to the left eye compared to the right. Patient has no pain behind the left eye or right eye, no pressure felt. Patient has had swelling to the left upper eyelid for the past few days, she has been using warm compresses for a stye. Patient also has a small abscess to the distal aspect of the right nostril, medial wall. Patient states is very sensitive, no drainage from the area. Patient says she also had another abscess that was deeper in the right nostril, but she stated that is getting better. Patient is also having cough and congestion. Patient has a long history of smoking, for the past several months she has been vaping. No recent travel, no other sick contacts at this time. No significant headache, patient's headache was not the worse headache of her life, not sudden onset, not thunderclap in nature.. No strokelike signs or symptoms. [facility] Medical History ADHD Panic disorder Borderline personality disorder Bipolar disorder, current episode depressed, severe, without psychotic features Post traumatic stress disorder (PTSD) Necrotizing fasciitis HTN (hypertension) Type 2 diabetes mellitus Lactose intolerance in adult Craniofacial hyperhidrosis Polyneuropathy due to type 2 diabetes mellitus Obesity Open wound of vulva Hemoglobin A1c greater than 9.0% Vulvar abscess History of necrotising fasciitis Fibromyalgia Anxiety and depression History of venous thromboembolism Polycystic ovary Bipolar disorder Hydradenitis Home Medications ?Medication ?Instructions ?Recorded ?Last Taken ?Type biotin 1 mg capsule 1 mg PO DAILY 01/06/22 Unknown History lactobacillus combination no.9 4 4,000 mmu cells PO DAILY 01/06/22 Unknown History billion cell capsule (Adult 50 Plus Probiotic) multivitamin 1 tab PO DAILY 01/06/22 Unknown History polyethylene glycol 3350 17 4 g PO DAILY #850 grams 05/19/22 Unknown Rx gram/dose oral powder (Miralax) flash glucose scanning reader #1 ea 01/30/23 Unknown Rx (FreeStyle Chirag 2 [place]) flash glucose sensor (FreeStyle #2 ea 01/30/23 Unknown Rx Chirag 2 Sensor kit) loratadine 10 mg tablet 10 mg PO DAILY allergies #90 tabs 01/30/23 Unknown Rx metformin 500 mg tablet 1,000 mg (2 x 500 mg) PO BIDCM 01/30/23 Unknown Rx diabetes #90 tabs omeprazole 40 mg capsule,delayed 40 mg PO DAILY GERD #90 caps 01/30/23 Unknown Rx release insulin degludec 100 unit/mL (3 40 unit subcut DAILY diabetes 08/19/23 Unknown History mL) subcutaneous pen (Tresiba FlexTouch U-100 insulin) buspirone 5 mg tablet 5 mg PO TID 30 days #90 tabs 11/14/23 Unknown Rx insulin NPH isoph U-100 human 100 30 unit subcut BID diabetes 11/14/23 Unknown History unit/mL (3 mL) subcutaneous pen (Novolin N FlexPen) insulin lispro 100 unit/mL 10 unit subcut TID diabetes 11/14/23 Unknown History subcutaneous pen (Humalog KwikPen (U-100) Insulin) prazosin 1 mg capsule 1 mg PO QHS 30 days #30 caps 11/14/23 Unknown Rx albuterol sulfate 90 mcg/actuation 2 puff inhalation Q4H PRN sob 06/08/24 Unknown History aerosol inhaler aripiprazole 15 mg tablet 15 mg PO DAILY mental health 06/08/24 Unknown History hydrochlorothiazide 12.5 mg tablet 12.5 mg PO DAILY waterv retention 06/08/24 Unknown History ibuprofen 800 mg tablet 800 mg PO Q8H PRN pain 06/08/24 Unknown History nystatin 100,000 unit/gram topical 1 applic topical BID PRN yeast 06/08/24 06/09/24 History powder (Nystop) pregabalin 150 mg capsule 150 mg PO TID pain 06/08/24 Unknown History ciprofloxacin HCl 500 mg tablet 500 mg PO BID #9 tabs 06/13/24 Unknown Rx (Cipro) furosemide 40 mg tablet (Lasix) 40 mg PO DAILY #5 tabs 06/13/24 Unknown Rx losartan 50 mg tablet 50 mg PO DAILY #30 tabs 06/13/24 Unknown Rx azithromycin 500 mg tablet See Rx Instructions PO .COMPLEX #6 07/11/24 Unknown Rx tabs erythromycin 5 mg/gram (0.5 %) eye 0.5 inch EACH EYE .QID Left upper 07/11/24 Unknown Rx ointment eyelid chalazion 10 days #3.5 grams mupirocin 2 % topical ointment 1 applic topical TID 14 days #1 07/11/24 Unknown Rx tube Allergy/AdvReac Type Severity Reaction Status Date / Time doxycycline Allergy Severe rash Verified 07/11/24 08:00 amoxicillin (Amoxicillin) Allergy Unknown Verified 07/11/24 08:00 asenapine maleate (From Allergy Unknown Verified 07/11/24 08:00 Saphris) cephalexin AdvReac Intermediate upset Verified 07/11/24 08:00 stomach Family History Mother Hypertension Brain aneurysm Father Diabetes Hypertension Grandmother Cancer liver throat kidney Diabetes Hypertension Heart disease CVA (cerebral vascular accident) Breast cancer Grandfather Kidney disease Hypertension CVA (cerebral vascular accident) Surgical History H/O lateral meniscus repair of left knee Social History household members: spouse Smoking Status: Current every day smoker tobacco type: e-cigarettes alcohol intake: never substance use type: does not use caffeine: Yes frequency: 5-6 times per week seatbelt use: always do you feel safe at home: Yes additional social history: Jonathan- Unemployed Patient is on disability ROS ROS ED ROS Narrative REVIEW OF SYSTEMS: Unless otherwise stated in this report the patient's positive and negative responses for review of systems for constitutional, eyes, ENT, cardiovascular, respiratory, gastrointestinal, neurological, , musculoskeletal, and integument systems and related systems to the presenting problem are either stated in the history of present illness or were not pertinent or were negative for the symptoms and/or complaints related to the presenting medical problem. EXAM Physical Exam Narrative Exam Narrative: Vital signs reviewed and patient is not hypoxic. General: The patient appears well and in no apparent distress. Patient is resting comfortably on cart. Not toxic, lethargic, or listless. Skin: Warm, dry, no pallor noted. There is no rash noted. Head: Normocephalic, atraumatic Eye: Normal conjunctiva, no drainage, EOMI. PERRL. See visual acuity. Patient's right eye was 20/20, left eye was 20/50 per patient recollection of her visual acuity. Patient has no double vision loss of vision or blurry vision at this time to left eye. Patient has no pain to left eye. She has equal ocular motion no difficulty. She has no preseptal or pulm septal cellulitis around the left eye. She does have mild swelling to left upper eyelid. Patient bilateral upper and lower eyelid was everted to left eye, she has no redness or erythema to the left eye. Patient does have some swelling to the left upper eyelid, she has evidence of a possible hordeolum or what might be an early chalazion because the infections appears to be in the inner aspect of the medial left upper eyelid, inner aspect. No ecchymosis. No drainage around the area. No palpable abscess. Ears, Nose, Mouth, and Throat: oral mucosa is moist. Nares patent. Mouth without vesicles. Patient does have a small area of tenderness to the distal medial wall of the right nostril, where he sees small white pimple to the area and it has moderate tenderness to palpation. No septal wall deviation. No septal wall mass, no septal wall hematoma. Patient has clear drainage to the posterior pharynx. Cardiovascular: Regular Rate and Rhythm, no murmurs, gallops, or rubs Respiratory: Patient is in no distress, no accessory muscle use, lungs are clear to auscultation, no rales or rhonchi bilateral, patient does have faint wheezing diffusely bilateral. Equal breath sounds bilateral. Back: non-tender, no CVA tenderness bilaterally to percussion. NO CTLS midline or paraspinal tenderness to palpation. GI: Soft, no tenderness Musculoskeletal: The patient has full range of motion of all extremities and joints with no difficulty. Patient has no motor, no sensory deficits. Neurological: A&O x4, normal speech, no focal neurological deficits. Psychiatric: Cooperative Const Vital Signs: 07/11/24 07:52 07/11/24 08:00 07/11/24 09:52 Temperature 98.7 F Temperature Source Oral Pulse Rate 101 H 92 Respiratory Rate 18 16 Respiratory Pattern Normal Blood Pressure 174/104 H 171/95 H Blood Pressure Mean 127 120 Pulse Ox 100 97 Oxygen Delivery Method Room Air Room Air 07/11/24 10:15 Temperature 98.0 F Temperature Source Pulse Rate 83 Respiratory Rate 17 Respiratory Pattern Blood Pressure 171/95 H Blood Pressure Mean 120 Pulse Ox 97 Oxygen Delivery Method MDM MDM MDM Narrative Medical decision making narrative: Patient will take her blood pressure medication when she goes home. Patient is not concerned about her blood pressure at this time. Patient knows that it is elevated. She has no significant headache chest pain shortness of breath, no syncopal episodes. Patient has evidence of probable early chalazion to the left upper eyelid. Patient is placed on erythromycin antibiotic ointment. Patient has a small abscess/pimple to the distal right medial nostril, should be placed on topical Bactroban ointment. Secondary to smoking and sinus congestion, patient will be placed on a Z-Adryan. Patient states her sinus symptoms have been 5 to 7 days. Patient will follow-up with PCP. Patient does have an eye physician at [facility]. Patient will call today for an appointment tomorrow or Sunday to have her left upper eyelid reevaluated and knows to follow-up with [facility] eye physician for further evaluation and correct care. No questions discharge. Patient does not need a note. Discharge Plan Triage Chief Complaint: Eye Problem Other Complaint: Hypertension ED Provider: Greyson Thrope Dx/Rx/DC Orders Clinical Impression: Sinusitis, Nasal abscess, Chalazion of left upper eyelid Instructions: How the Eye Works, ED Abscess Antibiotic Treatment Only, ED Chalazion, ED Sinusitis (Antibiotic Treatment) Prescriptions: New erythromycin 5 mg/gram (0.5 %) ointment 0.5 inch EACH EYE .QID 10 Days Qty: 3.5 0RF Rx Instructions: Half-inch ribbon to left eye every 6 hours x 10 days mupirocin 2 % ointment 1 applic topical TID 14 Days Qty: 1 0RF azithromycin 500 mg tablet See Rx Instructions .ROUTE .COMPLEX Qty: 6 0RF Rx Instructions: For 250 mg dose pack: take 500 mg today (day 1), then 250 mg for 4 days (days 2-5) No Action biotin 1 mg capsule 1 mg PO DAILY multivitamin Tablet 1 tab PO DAILY Adult 50 Plus Probiotic 4 billion cell capsule 4,000 mmu cells PO DAILY polyethylene glycol 3350 [Miralax] 17 gram/dose powder 4 g PO DAILY Qty: 850 1RF Patient Comments: has not started yet, for scope on (DME) FreeStyle Chirag 2 Sensor Kit See Rx Instructions .ROUTE .MEDSUPPLY Qty: 2 1RF Rx Instructions: As directed (DME) FreeStyle Chirag 2 [place] Misc See Rx Instructions .ROUTE .MEDSUPPLY Qty: 1 0RF Rx Instructions: As directed omeprazole 40 mg capsule,delayed release(DR/EC) 40 mg PO DAILY Qty: 90 0RF metformin 500 mg tablet 1,000 mg PO BIDCM Qty: 90 1RF loratadine 10 mg tablet 10 mg PO DAILY Qty: 90 0RF insulin degludec [Tresiba FlexTouch U-100] 100 unit/mL (3 mL) insulin pen 40 unit SUBCUT DAILY Novolin N FlexPen 100 unit/mL (3 mL) insulin pen 30 unit subcut BID Patient Comments: pt reports she has not been taking this recently insulin lispro [Humalog KwikPen Insulin] 100 unit/mL insulin pen 10 unit subcut TID Patient Comments: Patient reports she misses dose at times Rx Instructions: with meals buspirone 5 mg tablet 5 mg PO TID 30 Days Qty: 90 1RF prazosin 1 mg capsule 1 mg PO QHS 30 Days Qty: 30 0RF ibuprofen 800 mg tablet 800 mg PO Q8H PRN (Reason: pain) Patient Comments: TAKE 1 TABLET BY MOUTH THREE TIMES DAILY NEEDED FOR PAIN nystatin [Nystop] 100,000 unit/gram powder 1 applic TOPICAL BID PRN Patient Comments: Apply to affected area twice a day under skin folds albuterol sulfate 90 mcg/actuation HFA aerosol inhaler 2 puff INHALATION Q4H PRN (Reason: sob) Patient Comments: Inhale two puffs every 4-6 hours as needed for shortness of breath/cough. hydrochlorothiazide 12.5 mg tablet 12.5 mg PO DAILY Patient Comments: TAKE 1 TABLET BY MOUTH DAILY aripiprazole 15 mg tablet 15 mg PO DAILY Patient Comments: TAKE 1 TABLET BY MOUTH DAILY pregabalin 150 mg capsule 150 mg PO TID Patient Comments: Take 1 capsule by mouth three times a day for 60 days. losartan 50 mg Tablet 50 mg PO DAILY Qty: 30 0RF ciprofloxacin HCl [Cipro] 500 mg tablet 500 mg PO BID Qty: 9 0RF furosemide [Lasix] 40 mg tablet 40 mg PO DAILY Qty: 5 0RF Primary Care Provider: Nelly Michael Referrals: Nelly Michael, [facility] [Primary Care Provider] - Activity Restrictions/Additional Instructions: Use Bactroban 3 times a day for the next 2 weeks Finish antibiotic. Use antibiotic ointment ointment to the eye as directed. Follow-up with your [facility] eye physician as discussed, call today to get make an appointment for tomorrow or Sunday. Use [id number] DayQuil, NyQuil, Flonase daily. Use Mucinex DM as needed as well. Alternate Tylenol and either Motrin, Advil, or ibuprofen every 4 hours to help with fever, chills, myalgia, arthralgia or pain. Use zinc, vitamin D3, vitamin C to help build immune system and help fight infection as well. Increase fluids, Gatorade, or Powerade daily for the next 3 to 5 days. Print Language: Italian Disposition Disposition: Home, Self Care
== END 2024-07-11 10:19 | disposition home or self-care (01) ==
PROVIDERS: Emergency Provider Emergency Medicine; PCP Nurse Practitioner Family; Visit Provider Emergency Medicine
DX: J32.9 Chronic sinusitis, unspecified (principal); E11.42 Type 2 diabetes mellitus with diabetic polyneuropathy; Z79.4 Long term (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 of insulin; H00.14 Chalazion left upper eyelid; J34.0 Abscess, furuncle and carbuncle of nose; I10 Essential (primary) hypertension; F17.290 Nicotine dependence, other tobacco product, uncomplicated; Z79.899 Other long term (current) drug therapy; Z79.84 Long term (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 of oral hypoglycemic drugs
CPT/HCPCS: 99284

== ENCOUNTER 2024-07-14 20:59 | Emergency (ER) | payer MEDICARE, MEDICAID, SELFPAY ==
[2024-07-14 21:00] VITALS: BP 168/88; PULSE 105; RESP 22; TEMP 37.7; O2SAT 99; BMI 39.4
[2024-07-14 21:03] VITALS: BP 168/88; PULSE 105; RESP 22; TEMP 37.7; O2SAT 99
[2024-07-14 23:10] VITALS: BP 183/85; PULSE 100; RESP 18; TEMP 36.9; O2SAT 98
--- NOTE | 2024-07-14 23:24 | EDS_ITS ---
HPI History of Present Illness Chief Complaint: Cellulitis Detail of Chief Complaint: Right naris cellulitis. Onset/Context/Timing Onset: Days Context: Gradual Onset Timing: Continuous Current Severity: Mild Maximum Severity: Mild Narrative Narrative: 39-year-old female history of PTSD, fibromyalgia, bipolar and diabetes. Said she has had right near cellulitis since Sunday. Was seen in the emergency department placed on Z-Adryan. There was some delay in getting the prescription filled it may have been sent into the wrong name according the patient. She just started antibiotic I believe today. She denies other complaints. 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 Obesity Open wound of vulva Hemoglobin A1c greater than 9.0% Vulvar abscess History of necrotising fasciitis Fibromyalgia Anxiety and depression History of venous thromboembolism Polycystic ovary Bipolar disorder Hydradenitis Home Medications ?Medication ?Instructions ?Recorded ?Last Taken ?Type biotin 1 mg capsule 1 mg PO DAILY 01/06/22 Unknown History lactobacillus combination no.9 4 4,000 mmu cells PO DAILY 01/06/22 Unknown History billion cell capsule (Adult 50 Plus Probiotic) multivitamin 1 tab PO DAILY 01/06/22 Unknown History polyethylene glycol 3350 17 4 g PO DAILY #850 grams 05/19/22 Unknown Rx gram/dose oral powder (Miralax) flash glucose scanning reader #1 ea 01/30/23 Unknown Rx (FreeStyle Chirag 2 [place]) flash glucose sensor (FreeStyle #2 ea 01/30/23 Unknown Rx Chirag 2 Sensor kit) loratadine 10 mg tablet 10 mg PO DAILY allergies #90 tabs 01/30/23 Unknown Rx metformin 500 mg tablet 1,000 mg (2 x 500 mg) PO BIDCM 01/30/23 Unknown Rx diabetes #90 tabs omeprazole 40 mg capsule,delayed 40 mg PO DAILY GERD #90 caps 01/30/23 Unknown Rx release insulin degludec 100 unit/mL (3 40 unit subcut DAILY diabetes 08/19/23 Unknown History mL) subcutaneous pen (Tresiba FlexTouch U-100 insulin) buspirone 5 mg tablet 5 mg PO TID 30 days #90 tabs 11/14/23 Unknown Rx insulin NPH isoph U-100 human 100 30 unit subcut BID diabetes 11/14/23 Unknown History unit/mL (3 mL) subcutaneous pen (Novolin N FlexPen) insulin lispro 100 unit/mL 10 unit subcut TID diabetes 11/14/23 Unknown History subcutaneous pen (Humalog KwikPen (U-100) Insulin) prazosin 1 mg capsule 1 mg PO QHS 30 days #30 caps 11/14/23 Unknown Rx albuterol sulfate 90 mcg/actuation 2 puff inhalation Q4H PRN sob 06/08/24 Unknown History aerosol inhaler aripiprazole 15 mg tablet 15 mg PO DAILY mental health 06/08/24 Unknown History hydrochlorothiazide 12.5 mg tablet 12.5 mg PO DAILY waterv retention 06/08/24 Unknown History ibuprofen 800 mg tablet 800 mg PO Q8H PRN pain 06/08/24 Unknown History nystatin 100,000 unit/gram topical 1 applic topical BID PRN yeast 06/08/24 06/09/24 History powder (Nystop) pregabalin 150 mg capsule 150 mg PO TID pain 06/08/24 Unknown History ciprofloxacin HCl 500 mg tablet 500 mg PO BID #9 tabs 06/13/24 Unknown Rx (Cipro) furosemide 40 mg tablet (Lasix) 40 mg PO DAILY #5 tabs 06/13/24 Unknown Rx losartan 50 mg tablet 50 mg PO DAILY #30 tabs 06/13/24 Unknown Rx azithromycin 500 mg tablet See Rx Instructions PO .COMPLEX #6 07/11/24 Unknown Rx tabs erythromycin 5 mg/gram (0.5 %) eye 0.5 inch EACH EYE .QID Left upper 07/11/24 Unknown Rx ointment eyelid chalazion 10 days #3.5 grams erythromycin 5 mg/gram (0.5 %) eye 0.5 inch LEFT EYE .QID 7 days #3.5 07/11/24 Unknown Rx ointment grams mupirocin 2 % topical ointment 1 applic topical TID 14 days #1 07/11/24 Unknown Rx tube mupirocin 2 % topical ointment 1 applic topical TID Applied to 07/11/24 Unknown Rx affected area 14 days #1 tube cephalexin 500 mg capsule 500 mg PO Q6 #40 CAPSULES 07/14/24 Unknown Rx Allergy/AdvReac Type Severity Reaction Status Date / Time doxycycline Allergy Severe rash Verified 07/14/24 21:00 amoxicillin (Amoxicillin) Allergy Unknown Verified 07/14/24 21:00 asenapine maleate (From Allergy Unknown Verified 07/14/24 21:00 Saphris) cephalexin AdvReac Intermediate upset Verified 07/14/24 21:00 stomach Family History Mother Hypertension Brain aneurysm Father Diabetes Hypertension Grandmother Cancer liver throat kidney Diabetes Hypertension Heart disease CVA (cerebral vascular accident) Breast cancer Grandfather Kidney disease Hypertension CVA (cerebral vascular accident) Surgical History H/O lateral meniscus repair of left knee Social History household members: spouse Smoking Status: Current every day smoker tobacco type: e-cigarettes alcohol intake: never substance use type: does not use caffeine: Yes frequency: 5-6 times per week seatbelt use: always do you feel safe at home: Yes additional social history: Jonathan- Unemployed Patient is on disability ROS ROS ED ROS Narrative Right nasal cellulitis for several days. No other complaints. Constitutional Constitutional ED: Denies chills or fever(s) Eyes Eyes: Denies blurry vision ENT ENT ED: Denies ear pain Cardiovascular Cardiovascular: Denies chest pain Respiratory/Chest Respiratory/Chest: Denies cough Gastrointestinal Gastrointestinal: Denies abdominal pain Genitourinary Genitourinary ED: Denies dysuria Musculoskeletal Musculoskeletal: Denies arthralgias Integumentary Denies abscess Neurologic Neurologic: Denies headache(s) Psychiatric Psychiatric: Denies anxiety Endocrine Endocrinology: Denies cold intolerance Hematologic/Lymphatic Hematologic/Lymphatic: Reports none Allergic/Immunologic Allergic/Immunologic ED: Denies mouth swelling or tongue swelling EXAM Physical Exam Narrative Exam Narrative: Well-appearing 39-year-old female. She is anxious. She has no acute distress. She does not look septic or toxic. H EENT exam pupils round react to light. Posterior pharynx normal. The distal head of the opening of her right naris is red and tender consistent with cellulitis. There is no fluctuance. There is no rondon. There is no abscess inside the nose. The area is tender consistent with cellulitis. But there is nothing to drain at this time. It is in a small area approximately 1 inch in length and less than a half an inch in width. There is no black or necrotic skin. Neck nontender no lymphadenopathy. Lungs clear to auscultation. Heart regular rhythm rate about 100 no murmur. Chest wall ribs nontender abdomen soft nontender. Moving all 4 extremities. Calves are nontender. No edema. She is awake and alert no focal motor deficits. Const Vital Signs: 07/14/24 21:00 07/14/24 21:03 07/14/24 23:10 Temperature 99.8 F H 99.8 F H 98.4 F Temperature Source Oral Oral Oral Pulse Rate 105 H 105 H 100 Respiratory Rate 22 H 22 H 18 Blood Pressure 168/88 H 168/88 H 183/85 H Blood Pressure Mean 114 114 117 Pulse Ox 99 99 98 Oxygen Delivery Method Room Air Room Air Room Air Positive well nourished and well developed; Negative for cachectic, contractures or unkempt General Appearance ED: well developed and NAD; Negative for unkempt, cachectic, contractures, cyanotic, diaphoretic or pallor Nutritional Appearance: Negative for cachectic HEENT Reports moist mucous membranes HEENT Narrative: Cellulitis on the opening of her right naris. No fluctuance. Nothing to drain. Tender to palpation. Mild swelling. Negative for trauma or tenderness Eyes PERRL and EOMs intact bilaterally General Eye ED: Negative for pale conjunctiva or scleral icterus Neck no lymphadenopathy and no JVD Chest Wall inspection of chest normal and palpation of chest normal Resp normal respiratory effort and clear to auscultation bilaterally Auscultation: Negative for rales, rhonchi or wheezes Cardio regular rate, regular rhythm, S1 normal heart sound, S2 normal heart sound and no murmurs GI normal to inspection, nondistended, normoactive bowel sounds, non-tender, non- distended and no masses Back/Spine no CVA tenderness Extremity normal to inspection General Extremety ED: Negative for edema or tenderness General Extremity: Negative for edema Neuro oriented x3 and CN's II-XII intact bilaterally Sensorium / Orientation: alert; Negative for orientation impaired, lethargic or stuporous Motor Exam: strength 5/5 throughout Psych mental status grossly normal Appearance: Negative for unkempt Mood & Affect: anxious Skin No no rashes or lesions noted, no wounds and skin turgor normal Skin Narrative: Right nare cellulitis. General Skin Exam: Negative for jaundice or pallor Lesions: No lesion noted Rashes: No rashes noted Trauma: Negative for abrasion Wounds: Negative for wounds noted MDM MDM MDM Narrative Medical decision making narrative: 39-year-old diabetic has a blood sugar of 409. She has a cellulitis on the naris of her right nose. There is nothing to drain at this time. It is only about an inch in length and about a half an inch in width. She be placed on Keflex 500 4 times daily first dose given here. Prescription sent to her pharmacy or Motrin and Tylenol for pain. Warm compresses. Return if worse. Follow-up to ensure it is improving. Watch your blood sugars closely. History & Record Review Discussion w/independent historian: Patient Lab Data Attestation: I reviewed the patient's lab results. Lab results narrative: BGT equals 409. Discharge Plan Triage Chief Complaint: Cellulitis ED Provider: Pankaj Fung Dx/Rx/DC Orders Clinical Impression: Cellulitis, History of diabetes mellitus, Hyperglycemia due to diabetes mellitus Instructions: ED Abscess Antibiotic Treatment Only Prescriptions: New cephalexin 500 mg capsule 500 mg PO Q6 Qty: 40 0RF No Action biotin 1 mg capsule 1 mg PO DAILY multivitamin Tablet 1 tab PO DAILY Adult 50 Plus Probiotic 4 billion cell capsule 4,000 mmu cells PO DAILY polyethylene glycol 3350 [Miralax] 17 gram/dose powder 4 g PO DAILY Qty: 850 1RF Patient Comments: has not started yet, for scope on (DME) FreeStyle Chirag 2 Sensor Kit See Rx Instructions .ROUTE .MEDSUPPLY Qty: 2 1RF Rx Instructions: As directed (DME) FreeStyle Chirag 2 [place] Misc See Rx Instructions .ROUTE .MEDSUPPLY Qty: 1 0RF Rx Instructions: As directed omeprazole 40 mg capsule,delayed release(DR/EC) 40 mg PO DAILY Qty: 90 0RF metformin 500 mg tablet 1,000 mg PO BIDCM Qty: 90 1RF loratadine 10 mg tablet 10 mg PO DAILY Qty: 90 0RF insulin degludec [Tresiba FlexTouch U-100] 100 unit/mL (3 mL) insulin pen 40 unit SUBCUT DAILY Novolin N FlexPen 100 unit/mL (3 mL) insulin pen 30 unit subcut BID Patient Comments: pt reports she has not been taking this recently insulin lispro [Humalog KwikPen Insulin] 100 unit/mL insulin pen 10 unit subcut TID Patient Comments: Patient reports she misses dose at times Rx Instructions: with meals buspirone 5 mg tablet 5 mg PO TID 30 Days Qty: 90 1RF prazosin 1 mg capsule 1 mg PO QHS 30 Days Qty: 30 0RF ibuprofen 800 mg tablet 800 mg PO Q8H PRN (Reason: pain) Patient Comments: TAKE 1 TABLET BY MOUTH THREE TIMES DAILY NEEDED FOR PAIN nystatin [Nystop] 100,000 unit/gram powder 1 applic TOPICAL BID PRN Patient Comments: Apply to affected area twice a day under skin folds albuterol sulfate 90 mcg/actuation HFA aerosol inhaler 2 puff INHALATION Q4H PRN (Reason: sob) Patient Comments: Inhale two puffs every 4-6 hours as needed for shortness of breath/cough. hydrochlorothiazide 12.5 mg tablet 12.5 mg PO DAILY Patient Comments: TAKE 1 TABLET BY MOUTH DAILY aripiprazole 15 mg tablet 15 mg PO DAILY Patient Comments: TAKE 1 TABLET BY MOUTH DAILY pregabalin 150 mg capsule 150 mg PO TID Patient Comments: Take 1 capsule by mouth three times a day for 60 days. losartan 50 mg Tablet 50 mg PO DAILY Qty: 30 0RF ciprofloxacin HCl [Cipro] 500 mg tablet 500 mg PO BID Qty: 9 0RF furosemide [Lasix] 40 mg tablet 40 mg PO DAILY Qty: 5 0RF erythromycin 5 mg/gram (0.5 %) ointment 0.5 inch EACH EYE .QID 10 Days Qty: 3.5 0RF Rx Instructions: Half-inch ribbon to left eye every 6 hours x 10 days mupirocin 2 % ointment 1 applic topical TID 14 Days Qty: 1 0RF azithromycin 500 mg tablet See Rx Instructions .ROUTE .COMPLEX Qty: 6 0RF Rx Instructions: For 250 mg dose pack: take 500 mg today (day 1), then 250 mg for 4 days (days 2-5) mupirocin 2 % ointment 1 applic topical TID 14 Days Qty: 1 0RF erythromycin 5 mg/gram (0.5 %) ointment 0.5 inch LEFT EYE .QID 7 Days Qty: 3.5 0RF Primary Care Provider: Nelly Michael Referrals: Nelly Michael, PRODUCT MARKETING COORDINATOR-C [Primary Care Provider] - 3-5 Days Activity Restrictions/Additional Instructions: You have soft tissue infection or cellulitis. There is no abscess to drain at this time. If it comes to ahead we see a pus pocket or rondon return and we can drain it. Warm compresses to the area 4-5 times a day for 20 minutes each time. Motrin and Tylenol for pain. Start the antibiotic Keflex 4 times a day for 10 days. You can stop the Zithromax. Watch your blood sugars closely. Return if you are feeling worse. Print Language: Kinyarwanda Disposition Disposition: Home, Self Care
[2024-07-14 23:45] LABS: Bedside Glucose 409 mg/dL (74-106)
[2024-07-14] MEDS: Cephalexin 250 MG Capsule 500 MG PO (23:56)
--- NOTE | 2024-07-14 23:58 | ED.RN ---
PT ASKS TO TAKE HER OWN INSULIN AT HOME.
--- NOTE | 2024-07-15 07:12 | ED.RN ---
Pt called in because she is vomiting from the keflex. The keflex is listed on her allergy list as N/V. I talked to Dr Fung and he said she was Rx Azithromycin the other day when she was seen. She has the choice of taking that or eating and taking the Keflex. He said that the Keflex would cover the infection better. Pt stated that she understood.
== END 2024-07-14 23:58 | disposition home or self-care (01) ==
PROVIDERS: Emergency Provider Emergency Medicine; PCP Nurse Practitioner Family; Visit Provider Emergency Medicine
DX: J34.0 Abscess, furuncle and carbuncle of nose (principal); E11.42 Type 2 diabetes mellitus with diabetic polyneuropathy; Z79.4 Long term (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 of insulin; E11.65 Type 2 diabetes mellitus with hyperglycemia; I10 Essential (primary) hypertension; F17.290 Nicotine dependence, other tobacco product, uncomplicated; Z79.84 Long term (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 of oral hypoglycemic drugs; Z79.899 Other long term (current) drug therapy
CPT/HCPCS: 82962; 99282

== ENCOUNTER 2024-08-13 00:41 | Emergency (ER) | payer MEDICARE, MEDICAID, SELFPAY ==
[2024-08-13 00:46] VITALS: BP 198/107; PULSE 95; RESP 18; TEMP 37; O2SAT 100; BMI 45.3
[2024-08-13 00:55] VITALS: BP 186/106; PULSE 96; RESP 18; O2SAT 99
--- NOTE | 2024-08-13 00:59 | RAD_ITS ---
INDICATION: chest pain EXAMINATION/TECHNIQUE: X-RAY - XR Chest 2 Views COMPARISON: 06/08/2024. FINDINGS: LINES/DEVICES: None. LUNGS: No consolidation or evidence of an effusion. No evidence of edema or a pneumothorax. Stable scarring in the left mid to lower lung. MEDIASTINUM AND CARDIOVASCULAR STRUCTURES: Cardiac silhouette is normal in size and contour. Mediastinum is unremarkable. BONES AND SOFT TISSUES: No acute abnormality. RAD/Chest PA and Lateral IMPRESSION: No evidence of acute cardiopulmonary disease. Electronically Signed: Greyson Ruiz DO at 2:17 EST ,
--- NOTE | 2024-08-13 01:00 | EKG12_ITS ---
Test Reason : DYSRHYTHMIA Blood Pressure : */* mmHG Vent. Rate : 88 BPM Atrial Rate : 88 BPM P-R Int : 156 ms QRS Dur : 94 ms QT Int : 374 ms P-R-T Axes : 42 26 55 degrees QTcB Int : 452 ms Normal sinus rhythm Normal ECG Confirmed by Isaias Evans ([id number]), television news video editor YENI ANTHONY ([id number]) on 08/13/2024 9:27:10 AM Referred By: TB Confirmed By: Isaias Evans
[2024-08-13 01:01] VITALS: O2SAT 99
--- NOTE | 2024-08-13 01:03 | EX.ED.DYSGE1 ---
HPI History of Present Illness Chief Complaint: Hypertension Narrative Narrative: Patient is a 39-year-old female with past medical history of borderline personality disorder, tobacco abuse, hypertension, type 2 diabetes, anxiety, depression who presents to the emergency department the chief complaint of elevated blood pressure. Patient states that her blood pressure has been running in the 220 region systolic and notes that she was feeling unwell tonight therefore she came here for the valuation management. Patient states that she took her losartan prior to EMS arrival and noted that her blood pressure improved while in route to the emergency department. Patient states that she sees specialist at [facility] and notes that she contact her primary care physician but she states that they are hesitant to change her medications as the specialists are managing this. Patient denies any sick contacts. Patient does complain of some lightheadedness not dizziness per triage note and a headache. Patient states that her blood pressure is normally with a systolic of 180. [facility] Medical History Hepatosplenomegaly Tobacco abuse Obesity (BMI 30-39.9) ADHD Panic disorder Borderline personality disorder Bipolar disorder, current episode depressed, severe, without psychotic features Post traumatic stress disorder (PTSD) Necrotizing fasciitis HTN (hypertension) Type 2 diabetes mellitus Lactose intolerance in adult Craniofacial hyperhidrosis Polyneuropathy due to type 2 diabetes mellitus Obesity Open wound of vulva Hemoglobin A1c greater than 9.0% Vulvar abscess History of necrotising fasciitis Fibromyalgia Anxiety and depression History of venous thromboembolism Polycystic ovary Bipolar disorder Hydradenitis Home Medications ?Medication ?Instructions ?Recorded ?Last Taken ?Type biotin 1 mg capsule 1 mg PO DAILY 01/06/22 Unknown History lactobacillus combination no.9 4 4,000 mmu cells PO DAILY 01/06/22 Unknown History billion cell capsule (Adult 50 Plus Probiotic) multivitamin 1 tab PO DAILY 01/06/22 Unknown History flash glucose scanning reader #1 ea 01/30/23 Unknown Rx (FreeStyle Chirag 2 Emerson) flash glucose sensor (FreeStyle #2 ea 01/30/23 Unknown Rx Chirag 2 Sensor kit) loratadine 10 mg tablet 10 mg PO DAILY allergies #90 tabs 01/30/23 Unknown Rx metformin 500 mg tablet 1,000 mg (2 x 500 mg) PO BIDCM 01/30/23 Unknown Rx diabetes #90 tabs omeprazole 40 mg capsule,delayed 40 mg PO DAILY GERD #90 caps 01/30/23 Unknown Rx release insulin degludec 100 unit/mL (3 40 unit subcut DAILY diabetes 08/19/23 Unknown History mL) subcutaneous pen (Tresiba FlexTouch U-100 insulin) insulin lispro 100 unit/mL 10 unit subcut TID diabetes 11/14/23 Unknown History subcutaneous pen (Humalog KwikPen (U-100) Insulin) albuterol sulfate 90 mcg/actuation 2 puff inhalation Q4H PRN sob 06/08/24 Unknown History aerosol inhaler hydrochlorothiazide 12.5 mg tablet 12.5 mg PO DAILY waterv retention 06/08/24 Unknown History ibuprofen 800 mg tablet 800 mg PO Q8H PRN pain 06/08/24 Unknown History pregabalin 150 mg capsule 150 mg PO TID pain 06/08/24 Unknown History losartan 50 mg tablet 50 mg PO BID 08/13/24 Unknown History Allergy/AdvReac Type Severity Reaction Status Date / Time doxycycline Allergy Severe rash Verified 07/14/24 21:00 amoxicillin (Amoxicillin) Allergy Unknown Verified 07/14/24 21:00 asenapine maleate (From Allergy Unknown Verified 07/14/24 21:00 Saphris) cephalexin AdvReac Intermediate upset Verified 07/14/24 21:00 stomach Family History Mother Hypertension Brain aneurysm Father Diabetes Hypertension Grandmother Cancer liver throat kidney Diabetes Hypertension Heart disease CVA (cerebral vascular accident) Breast cancer Grandfather Kidney disease Hypertension CVA (cerebral vascular accident) Surgical History H/O lateral meniscus repair of left knee Social History household members: spouse Smoking Status: Current every day smoker tobacco type: e-cigarettes alcohol intake: never substance use type: does not use caffeine: Yes frequency: 5-6 times per week seatbelt use: always do you feel safe at home: Yes additional social history: Jonathan- Unemployed Patient is on disability ROS ROS ED ROS Narrative Constitutional: Complains of headache as noted above denies any fevers, chills, dizziness Eyes: Denies any double vision Cardiovascular: Denies chest pain or palpitations Respiratory: Denies coughing wheezing shortness of breath Abdomen: Denies abdominal pain nausea vomit diarrhea : Denies any urinary symptoms Neurological: Denies any numbness, weakness, tingling Musculoskeletal: Denies back pain Skin: Denies rashes or lesions EXAM Physical Exam Narrative Exam Narrative: General: Patient lying in bed rest comfortably did not appear to be acute distress Head: Atraumatic, normocephalic Eyes: PERRL bilateral, EOMI bilateral, no conjunctival injection noted Neck: Soft, supple, trachea midline Cardiovascular: Regular in rhythm no murmurs gallops rubs noted Respiratory: Clear to auscultation bilaterally Abdomen: Soft, nondistended, nontender to palpation Extremities: +5/5 strength noted in the bilateral lower extremities, radial pulses +2/4 in the bilateral extremities, Neurological: Patient follow commands and that she was at [facility] years 2024. NIH of 0 GCS 15 Skin: Warm, dry, intact no rashes or lesions noted Const Vital Signs: 08/13/24 00:46 08/13/24 00:51 08/13/24 00:55 Temperature 98.6 F Temperature Source Oral Pulse Rate 95 96 Respiratory Rate 18 18 Respiratory Effort Normal Non-Labored Respiratory Pattern Normal Blood Pressure 198/107 H 186/106 H Blood Pressure Mean 137 132 Pulse Ox 100 99 Oxygen Delivery Method Room Air Room Air 08/13/24 01:01 08/13/24 02:38 08/13/24 03:40 Temperature Temperature Source Pulse Rate Respiratory Rate Respiratory Effort Respiratory Pattern Blood Pressure 198/92 H 174/98 H Blood Pressure Mean 127 123 Pulse Ox 99 Oxygen Delivery Method Room Air MDM MDM MDM Narrative Medical decision making narrative: Patient is a 39-year-old female who presented to the emergency department with chief complaint of elevated blood pressure, headache, lightheadedness and not feeling well. The differential diagnosis includes but not limited to hypertensive emergency, central hypertension, ACS. Once workup is obtained reviewed she will be reevaluated. Per nursing staff when they are going through medication reconciliation they noted that she is noncompliant with her medications and states that she is only taking her medications if she remembers to take them. Patient CBC reviewed and was largely unremarkable no evidence leukocytosis white blood count normal 8.4, hemoglobin stable 12.5, platelet count normal at 153. Patient's sodium was 133, potassium normal at 4, creatinine normal at 0.92. Patient's troponin normal at 7, EKG reviewed showed sinus rhythm with a rate of 88 bpm. Patient's urinalysis reviewed showed no evidence of infection test was negative. Patient's chest x-ray reviewed by myself and by radiology showed no evidence of acute cardiopulmonary disease. On reevaluation of the patient and she was noted to be hypertensive she will be given 0.1 mg of clonidine, and Toradol On reevaluation of the patient she is feeling much improved she would like to go home at this point time. Her blood pressure improved to a systolic of 174. She was advised that she needs to be taking her medications every single day as prescribed. She was advised to follow-up with her primary care physician. She was advised take her blood pressure cuff that she has at home to her appointment to ensure that these are adequate readings that she is obtaining at home. She is encouraged return with worsening symptoms or concerns. She is agreeable this plan all question concerns answered she is discharged home in stable condition. Lab Data Labs: Laboratory Results - last 24 hr 08/13/24 08/13/24 00:55 01:20 WBC 8.4 RBC 4.63 Hgb 12.5 Hct 37.1 MCV 80.1 L MCH 27.0 MCHC 33.7 RDW Std Deviation 40.7 RDW Coeff of Amada 14.1 Plt Count 153 MPV TNP Immature Gran % (Auto) 0.500 Neut % (Auto) 64.4 Lymph % (Auto) 25.6 [place] % (Auto) 5.6 Eos % (Auto) 3.3 Baso % (Auto) 0.6 Absolute Neuts (auto) 5.4 Absolute Lymphs (auto) 2.16 Nucleated RBC % 0 Differential Comment SCANNED Platelet Estimate SLT DEC Sodium 133 L Potassium 4.0 Chloride 102 Carbon Dioxide 25.0 Anion Gap 6 BUN 26 H Creatinine 0.92 Estim Creat Clear Calc 117.46 Est GFR (MDRD) Af Amer 87 Est GFR (MDRD) Non-Af 72 BUN/Creatinine Ratio 28.4 H Glucose 304 H Calcium 8.9 Troponin I High Sens 7 Urine Color Straw Urine Clarity Clear Urine pH 7.0 Ur Specific [place] 1.010 Urine Protein 100 H Urine Glucose (UA) 1000 H Urine Ketones Negative Urine Occult Blood 150 H Urine Nitrite Negative Urine Bilirubin Negative Urine Urobilinogen Normal Ur Leukocyte Esterase Negative Urine RBC 50-100 SEEN Urine WBC 0-5 SEEN Ur Squamous Epith Cells 0 SEEN Urine Bacteria RARE Hyaline Casts 0-5 SEEN Urine Mucus 1+ Urine Test Negative Radiography Diagnostic Testing: Clinical Impression(s) from Imaging Studies Chest X-Ray 08/13/24 00:59 IMPRESSION: No evidence of acute cardiopulmonary disease. Electronically Signed: Greyson Ruiz DO at 2:17 EST , Discharge Plan Triage Chief Complaint: Hypertension ED Provider: Bakari Alfaro Dx/Rx/DC Orders Clinical Impression: Hypertension Prescriptions: No Action biotin 1 mg capsule 1 mg PO DAILY multivitamin Tablet 1 tab PO DAILY Adult 50 Plus Probiotic 4 billion cell capsule 4,000 mmu cells PO DAILY (DME) FreeStyle Chirag 2 Sensor Kit See Rx Instructions .ROUTE .MEDSUPPLY Qty: 2 1RF Rx Instructions: As directed (DME) FreeStyle Chirag 2 Emerson Misc See Rx Instructions .ROUTE .MEDSUPPLY Qty: 1 0RF Rx Instructions: As directed omeprazole 40 mg capsule,delayed release(DR/EC) 40 mg PO DAILY Qty: 90 0RF metformin 500 mg tablet 1,000 mg PO BIDCM Qty: 90 1RF loratadine 10 mg tablet 10 mg PO DAILY Qty: 90 0RF insulin degludec [Tresiba FlexTouch U-100] 100 unit/mL (3 mL) insulin pen 40 unit SUBCUT DAILY insulin lispro [Humalog KwikPen Insulin] 100 unit/mL insulin pen 10 unit subcut TID Patient Comments: Patient reports she misses dose at times Rx Instructions: with meals ibuprofen 800 mg tablet 800 mg PO Q8H PRN (Reason: pain) Patient Comments: TAKE 1 TABLET BY MOUTH THREE TIMES DAILY NEEDED FOR PAIN albuterol sulfate 90 mcg/actuation HFA aerosol inhaler 2 puff INHALATION Q4H PRN (Reason: sob) Patient Comments: Inhale two puffs every 4-6 hours as needed for shortness of breath/cough. hydrochlorothiazide 12.5 mg tablet 12.5 mg PO DAILY Patient Comments: TAKE 1 TABLET BY MOUTH DAILY pregabalin 150 mg capsule 150 mg PO TID Patient Comments: Take 1 capsule by mouth three times a day for 60 days. losartan 50 mg Tablet 50 mg PO BID Primary Care Provider: Nelly Michael Referrals: Nelly Michael, INSURANCE BUSINESS ANALYST-C [Primary Care Provider] - Activity Restrictions/Additional Instructions: Take your blood pressure medications as prescribed daily. Take your blood pressure cuff with you to your appointment to ensure that this blood pressure cuff is working properly. Return with worsening symptoms or concerns Print Language: Bulgarian Disposition Disposition: Home, Self Care
[2024-08-13] MEDS: Acetaminophen 500 MG Tablet 1000 MG PO (01:12)
[2024-08-13] MEDS: Metoclopramide 10 MG/2 ML Vial 5 MG IV (01:12)
[2024-08-13 01:13] LABS: Absolute Lymphocyte Count 2.16 X10^3/uL (0.83-4.51); Absolute Neutrophil Count 5.4 X10^3/uL (2.0-7.7); Basophil# 0.05 X10^3/uL; Basophil% 0.6 % (0-1); Eosinophil# 0.28 X10^3/uL; Eosinophils% 3.3 % (0-5); Hematocrit 37.1 % (37-47); Hemoglobin 12.5 g/dL (12.0-15.0); Lymphocyte # 2.16 X10^3/ul (0.83-4.51); Lymphocyte % 25.6 % (19-41); Mean Corp Hgb Conc 33.7 g/dL (32-36); Mean Corpuscular Volume 80.1 fL (81-99); Monocyte# 0.47 X10^3/uL; Monocyte% 5.6 % (0-10); NRBC Flagged by Analyzer 0 % (0-5); Neutrophil # 5.44 X10^3/uL (2.7-7.7); Neutrophil % 64.4 % (47-70); POSITIVE COUNT YES; Platelet Count 153 K/mm3 (150-450); RBC Distribution Width CV 14.1 % (11.6-14.6); RBC Distribution Width SD 40.7 fl (35.1-43.9); Red Blood Count 4.63 M/mm3 (4.2-5.4); White Blood Count 8.4 K/mm3 (4.4-11.0)
[2024-08-13 01:23] LABS: Differential Indicated SCAN CRITERIA MET
[2024-08-13 01:29] LABS: Squamous Epithelial Cells - UA 0 SEEN /hpf (5-10)
[2024-08-13 01:30] LABS: Color, Urine Straw (Yellow); Glucose, Dipstick 1000 mg/dl (Normal); Ketone-Dipstick Negative (Negative); Leukocyte Esterase-Dipstick Negative /ul (Negative); Nitrite-Dipstick Negative (Negative); Occult Blood-Urine 150 /ul (Negative); Protein-Dipstick 100 mg/dl (Negative); Urine Bilirubin Dipstick Negative (Negative); Urine Clarity Clear (Clear); Urine Urobilinogen Normal (Normal)
[2024-08-13 01:44] LABS: Bacteria RARE /hpf (None Seen); Hyaline Cast 0-5 SEEN /lpf (0-5); Internal QC Validated? YES +Cl - CLEAR BKGD; Mucous, Urine 1+ /hpf (<or=2+); Pregnancy, Urine Negative Negative; Red Blood Cells-Urine 50-100 SEEN /hpf (0-5); White Blood Cells 0-5 SEEN /hpf (0-5)
[2024-08-13 01:46] LABS: Anion Gap 6 (5-15); BUN 26 mg/dL (7-18); BUN/Creat Ratio 28.4 RATIO (10-20); Calcium,Total 8.9 mg/dL (8.5-10.1); Chloride 102 mmol/L (98-107); Creatinine, Serum 0.92 mg/dL (0.55-1.02); EST Glomerular Filtration Rate 72 mL/min (>60); Est Glom Filt Rate - Afr Amer 87 mL/min (>60); Estimated Creatinine Clearance 117.46 ml/min; Glucose 304 mg/dL (74-106); Sodium Level 133 mmol/L (136-145); Troponin-I HS 7 pg/mL (3.0-54.0)
[2024-08-13 02:10] LABS: Differential Comment SCANNED; Platelet Estimate SLT DEC (ADEQ)
[2024-08-13] MEDS: cloNIDine HCl 0.1 MG Tablet PO (02:34)
[2024-08-13] MEDS: Ketorolac 15 MG/ML Vial IV (02:35)
[2024-08-13 02:38] VITALS: BP 198/92
[2024-08-13 03:40] VITALS: BP 174/98
[2024-08-13 03:41] VITALS: BP 160/88; PULSE 86; RESP 18; TEMP 36.7; O2SAT 100
== END 2024-08-13 03:48 | disposition home or self-care (01) ==
PROVIDERS: Emergency Provider Emergency Medicine; PCP Nurse Practitioner Family; Visit Provider Emergency Medicine
DX: I10 Essential (primary) hypertension (principal); E11.42 Type 2 diabetes mellitus with diabetic polyneuropathy; Z79.4 Long term (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 of insulin; F17.290 Nicotine dependence, other tobacco product, uncomplicated; Z79.84 Long term (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 of oral hypoglycemic drugs; Z79.899 Other long term (current) drug therapy
CPT/HCPCS: 71046; 80048; 81001; 81025; 84484; 85025; 87086; 87088; 93005; 96374; 96375; 99285; A4216

== ENCOUNTER → 2024-09-10 | Outpatient (CLI) | payer MEDICARE, MEDICAID, SELFPAY | END | disposition home or self-care (01) | LOC: LABSPEC 15:52 | PROVIDERS: PCP Nurse Practitioner Family; Referring Provider Otolaryngology; Visit Provider Otolaryngology | DX: H92.12 Otorrhea, left ear (principal) | CPT/HCPCS: 87070; 87075; 87077; 87186; 87205 ==

== ENCOUNTER → 2024-09-16 | Outpatient (CLI) | payer MEDICARE, MEDICAID, SELFPAY ==
[2024-09-16 14:35] LABS: Absolute Lymphocyte Count 1.29 X10^3/uL (0.83-4.51); Absolute Neutrophil Count 5.9 X10^3/uL (2.0-7.7); Basophil# 0.04 X10^3/uL; Basophil% 0.5 % (0-1); Eosinophil# 0.24 X10^3/uL; Hematocrit 33.9 % (37-47); Hemoglobin 11.6 g/dL (12.0-15.0); Lymphocyte # 1.29 X10^3/ul (0.83-4.51); Lymphocyte % 16.2 % (19-41); Mean Corp Hgb Conc 34.2 g/dL (32-36); Mean Platelet Vol. 12.2 fl (6.2-12.0); Monocyte# 0.46 X10^3/uL; Monocyte% 5.8 % (0-10); NRBC Flagged by Analyzer 0 % (0-5); Neutrophil # 5.85 X10^3/uL (2.7-7.7); Neutrophil % 73.6 % (47-70); Platelet Count 167 K/mm3 (150-450); RBC Distribution Width CV 13.4 % (11.6-14.6); RBC Distribution Width SD 37.9 fl (35.1-43.9); Red Blood Count 4.29 M/mm3 (4.2-5.4)
[2024-09-16 14:52] LABS: BNP,B-Type NATRIURETIC PEPTIDE 142.3 pg/mL (0-100)
[2024-09-16 14:58] LABS: ALB/GLOB Ratio 0.7 RATIO (0.9-2.4); AST(SGOT) 24 U/L (15-37); Alanine Aminotransfer ALT/SGPT 34 U/L (13-56); Albumin, Serum 2.7 g/dL (3.2-5.0); Alkaline Phosphatase 67 U/L (45-117); Anion Gap 7 (5-15); BUN 17 mg/dL (7-18); BUN/Creat Ratio 19.2 RATIO (10-20); Calcium,Total 9.2 mg/dL (8.5-10.1); Chloride 103 mmol/L (98-107); Creatinine, Serum 0.89 mg/dL (0.55-1.02); EST Glomerular Filtration Rate 75 mL/min (>60); Est Glom Filt Rate - Afr Amer 90 mL/min (>60); Globulin 3.9 g/dL (2.2-4.2); Glucose 310 mg/dL (74-106); Potassium 4.1 mmol/L (3.5-5.1); Protein, Total 6.6 g/dL (6.4-8.2); Sodium Level 134 mmol/L (136-145)
== END | disposition home or self-care (01) ==
LOC: VSLAB 14:04
PROVIDERS: PCP Nurse Practitioner Family
DX: R06.00 Dyspnea, unspecified (principal); R63.5 Abnormal weight gain
CPT/HCPCS: 36415; 80053; 83880; 84443; 85025

== ENCOUNTER 2024-09-17 12:05 | Observation (INO) | payer MEDICARE, MEDICAID, SELFPAY ==
[2024-09-17] VITALS (9 sets, daily range): BP systolic 147–221; BP diastolic 78–123; PULSE 85–103; RESP 16–25; TEMP 36.5–37.1; O2SAT 94–100; BMI 45.6; BMI 44.6
--- NOTE | 2024-09-17 13:31 | EDS_ITS ---
HPI History of Present Illness Chief Complaint: Shortness of Breath Informant: patient Onset/Context/Timing Onset: Weeks (1) Context: Gradual Onset Timing: Continuous Quality: Pressure Location: Substernal Worsened by: Exertion Relieved by: Rest Narrative Narrative: Patient presents with shortness of breath and chest pain that has been getting worse over the past week. Patient states she has some pressure over the substernal area. Patient states it is worse with any exertion and better with rest. Patient also admits to some weight gain. Patient states she has gained 30 pounds in the last 2 weeks. Patient went to her primary care physician office today and was referred to the emergency department due to her elevated blood pressure and chest pain symptoms. 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 Obesity Open wound of vulva Hemoglobin A1c greater than 9.0% Vulvar abscess History of necrotising fasciitis Fibromyalgia Anxiety and depression History of venous thromboembolism Polycystic ovary Bipolar disorder Hydradenitis Home Medications ?Medication ?Instructions ?Recorded ?Last Taken ?Type biotin 1 mg capsule 1 mg PO DAILY 01/06/22 Unkno wn History lactobacillus combination no.9 4 4,000 mmu cells PO DA TERRY 01/06/22 Unknown History billion cell capsule (Adult 50 Plus Probiotic) multivitamin 1 tab PO DAILY 01/06/22 Unkn own History flash glucose scanning reader #1 ea 01/30/23 Unknown R x (FreeStyle Chirag 2 Costilla) flash glucose sensor (FreeStyle #2 ea 01/30/23 Unknown Rx Chirag 2 Sensor kit) loratadine 10 mg tablet 10 mg PO DAILY allergies #90 tabs 01/30/23 Unknown Rx metformin 500 mg tablet 1,000 mg (2 x 500 mg) PO BID CM 01/30/23 Unknown Rx diabetes #90 tabs omeprazole 40 mg capsule,delayed 40 mg PO DAILY GERD # 90 caps 01/30/23 Unknown Rx release insulin degludec 100 unit/mL (3 40 unit subcut DAILY d iabetes 08/19/23 Unknown History mL) subcutaneous pen (Tresiba FlexTouch U-100 insulin) insulin lispro 100 unit/mL 10 unit subcut TID diabetes 11/14/23 Unknown History subcutaneous pen (Humalog KwikPen (U-100) Insulin) albuterol sulfate 90 mcg/actuation 2 puff inhalation Q 4H PRN sob 06/08/24 Unknown History aerosol inhaler hydrochlorothiazide 12.5 mg tablet 12.5 mg PO DAILY wa terv retention 06/08/24 Unknown History ibuprofen 800 mg tablet 800 mg PO Q8H PRN pain 06/08 Unknown History pregabalin 150 mg capsule 150 mg PO TID pain 06/08/24 Unknown History losartan 50 mg tablet 50 mg PO BID 08/13/24 Unknow n History Allergy/AdvReac Type Severity Reaction Status Date / Time doxycycline Allergy Severe rash Verified 09/17/24 12:09 amoxicillin (Amoxicillin) Allergy Unknown Verified 09/17/24 12:09 asenapine maleate (From Allergy Unknown Verified 09/17/24 12:09 Saphris) cephalexin AdvReac Intermediate upset Verified 09/17/24 12:09 stomach sulfamethoxazole (From AdvReac Upset Verified 09/17/24 12:09 Bactrim) Stomach trimethoprim (From Bactrim) AdvReac Upset Verified 09/17/24 12:09 Stomach Family History Mother Hypertension Brain aneurysm Father Diabetes Hypertension Grandmother Cancer liver throat kidney Diabetes Hypertension Heart disease CVA (cerebral vascular accident) Breast cancer Grandfather Kidney disease Hypertension CVA (cerebral vascular accident) Surgical History H/O lateral meniscus repair of left knee Social History household members: spouse Smoking Status: Current every day smoker tobacco type: e-cigarettes alcohol intake: never substance use type: does not use caffeine: Yes frequency: 5-6 times per week seatbelt use: always do you feel safe at home: Yes additional social history: Jonathan- Unemployed Patient is on disability ROS ROS ED Constitutional Constitutional ED: Reports chills, subjective and sweats; Denies fever(s) Eyes Eyes: Denies blurry vision or change in vision ENT ENT ED: Reports rhinorrhea; Denies sore throat Cardiovascular Cardiovascular: Reports chest pain; Denies palpitations Respiratory/Chest Respiratory/Chest: Reports dyspnea; Denies cough Gastrointestinal Gastrointestinal: Reports nausea and vomiting Genitourinary Genitourinary ED: Denies dysuria or hematuria Musculoskeletal Musculoskeletal: Reports back pain and neck pain Integumentary Reports rash; Denies abscess Neurologic Neurologic: Denies headache(s) or weakness Allergic/Immunologic Allergic/Immunologic ED: Denies mouth swelling or urticaria EXAM Physical Exam Const Vital Signs: 09/17/24 12:06 09/17/24 12:26 09/17/24 14:01 Temperature 97.7 F L 98.8 F Temperature Source Oral Oral Pulse Rate 103 H 96 89 Respiratory Rate 20 H 16 17 Blood Pressure 221/123 H 180/109 H 201/115 H Blood Pressure Mean 155 132 143 Pulse Ox 100 97 99 Oxygen Delivery Method Room Air Room Air Room Air 09/17/24 14:21 Temperature Temperature Source Pulse Rate 92 Respiratory Rate 16 Blood Pressure 170/90 H Blood Pressure Mean 116 Pulse Ox 100 Oxygen Delivery Method Room Air Positive well nourished and well developed General Appearance ED: well developed and NAD HEENT Reports moist mucous membranes Neck supple and no JVD Resp normal respiratory effort Auscultation: diminished lung sounds bilateral lower Cardio regular rate and regular rhythm GI non-tender and non-distended Palpation: soft Neuro oriented x3, CN's II-XII intact bilaterally and no sensory deficits noted Sensorium / Orientation: alert Motor Exam: strength 5/5 throughout Psych mental status grossly normal MDM MDM MDM Narrative Medical decision making narrative: Differential diagnosis includes cardiac dysrhythmia, cardiac ischemia, pneumonia, congestive heart failure, acute kidney injury, electrolyte abnormality, bronchitis, and viral illness. EKG will be obtained to assess for cardiac dysrhythmia and cardiac ischemia. Chest x-ray will be obtained to assess for pneumonia and pneumothorax. CBC will be obtained to assess for leukocytosis and anemia. Basic metabolic profile will be obtained to assess for electrolyte abnormality and renal function. BNP will be obtained to assess for congestive heart failure. High-sensitivity troponin will be obtained to assess for cardiac ischemia. 2-hour repeat high-sensitivity troponin will be obtained to assess for ongoing cardiac ischemia. Urinalysis will be obtained to assess for urinary tract infection and hematuria. Lab Data Attestation: I reviewed the patient's lab results. Lab results narrative: CBC was reviewed. There is a mild anemia with a hemoglobin of 11.5 and hematocrit of 34.3. The remainder is within normal limits. Basic metabolic profile was reviewed. Sodium was slightly low at 132. Glucose was elevated at 309. The remainder is within normal limits. High-sensitivity troponin was reviewed and was normal at 16. Urinalysis was reviewed. Leukocyte esterase was 500 with 10-25 white blood cells and 2+ bacteria. Labs: Laboratory Results - last 24 hr 09/17/24 09/17/24 09/17/24 12:37 12:37 14:14 WBC Cancelled Corrected WBC Cancelled RBC Cancelled Hgb Cancelled Hct Cancelled MCV Cancelled MCH Cancelled MCHC Cancelled RDW Std Deviation Cancelled RDW Coeff of Amada Cancelled Plt Count Cancelled MPV Cancelled Immature Gran % (Auto) Cancelled Neut % (Auto) Cancelled Lymph % (Auto) Cancelled [place] % (Auto) Cancelled Eos % (Auto) Cancelled Baso % (Auto) Cancelled Absolute Neuts (auto) Cancelled Absolute Lymphs (auto) Cancelled Total Counted Cancelled Neutrophils % (Manual) Cancelled Band Neutrophils % Cancelled Lymphocytes % (Manual) Cancelled Monocytes % (Manual) Cancelled Eosinophils % (Manual) Cancelled Basophils % (Manual) Cancelled Metamyelocytes % Cancelled Myelocytes % Cancelled Promyelocytes % Cancelled Blast Cells % Cancelled Plasma Cell % (Manual) Cancelled Other Cells % Cancelled Nucleated RBC % Cancelled Nucleated RBCs/100 WBC Cancelled Differential Comment Cancelled Diff Path Review Cancelled Hypersegmented Neuts Cancelled Atypical Lymphocytes Cancelled Reactive Lymphocytes Cancelled Smudge Cells Cancelled Toxic Granulation Cancelled Toxic Vacuolation Cancelled Dohle Bodies Cancelled Sara Rods Cancelled Platelet Estimate Cancelled Plt Morphology Comment Cancelled RBC Morphology Cancelled Cancelled Polychromasia Cancelled Hypochromasia Cancelled Basophilic Stippling Cancelled Anisocytosis Cancelled Microcytosis Cancelled Macrocytosis Cancelled Spherocytes Cancelled Sickle Cells Cancelled Target Cells Cancelled Tear Drop Cells Cancelled Ovalocytes Cancelled Stomatocytes Cancelled [place] Bodies Cancelled Travis Cells Cancelled Bite Cells Cancelled Crenated Cell Cancelled Acanthocytes (Spur) Cancelled Rouleaux Cancelled Schistocytes Cancelled Sodium 132 L Potassium 4.4 Chloride 100 Carbon Dioxide 24.0 Anion Gap 8 BUN 20 H Creatinine 0.91 Estim Creat Clear Calc 119.19 Est GFR (MDRD) Af Amer 88 Est GFR (MDRD) Non-Af 72 BUN/Creatinine Ratio 22.0 H Glucose 309 H Calcium 8.9 Troponin I High Sens 16 B-Natriuretic Peptide Cancelled Urine Color Yellow Urine Clarity Sl. Cloudy Urine pH 6.0 Ur Specific [place] 1.020 Urine Protein 100 H Urine Glucose (UA) 1000 H Urine Ketones Negative Urine Occult Blood 250 H Urine Nitrite Negative Urine Bilirubin Negative Urine Urobilinogen Normal Ur Leukocyte Esterase 500 H Urine RBC 5-10 SEEN Urine WBC 10-25 SEEN Ur Squamous Epith Cells 5-10 SEEN Urine Bacteria 2+ Urine Mucus 0 SEEN 09/17/24 14:15 WBC 8.9 Corrected WBC RBC 4.30 Hgb 11.5 L Hct 34.3 L MCV 79.8 L MCH 26.7 L MCHC 33.5 RDW Std Deviation 38.4 RDW Coeff of Amada 13.6 Plt Count 176 MPV 12.3 H Immature Gran % (Auto) 0.800 Neut % (Auto) 71.4 H Lymph % (Auto) 17.3 L [place] % (Auto) 6.3 Eos % (Auto) 3.6 Baso % (Auto) 0.6 Absolute Neuts (auto) 6.4 Absolute Lymphs (auto) 1.55 Total Counted Neutrophils % (Manual) Band Neutrophils % Lymphocytes % (Manual) Monocytes % (Manual) Eosinophils % (Manual) Basophils % (Manual) Metamyelocytes % Myelocytes % Promyelocytes % Blast Cells % Plasma Cell % (Manual) Other Cells % Nucleated RBC % 0 Nucleated RBCs/100 WBC Differential Comment Diff Path Review Hypersegmented Neuts Atypical Lymphocytes Reactive Lymphocytes Smudge Cells Toxic Granulation Toxic Vacuolation Dohle Bodies Sara Rods Platelet Estimate Plt Morphology Comment RBC Morphology Polychromasia Hypochromasia Basophilic Stippling Anisocytosis Microcytosis Macrocytosis Spherocytes Sickle Cells Target Cells Tear Drop Cells Ovalocytes Stomatocytes [place] Bodies Travis Cells Bite Cells Crenated Cell Acanthocytes (Spur) Rouleaux Schistocytes Sodium Potassium Chloride Carbon Dioxide Anion Gap BUN Creatinine Estim Creat Clear Calc Est GFR (MDRD) Af Amer Est GFR (MDRD) Non-Af BUN/Creatinine Ratio Glucose Calcium Troponin I High Sens B-Natriuretic Peptide 141.0 H Urine Color Urine Clarity Urine pH Ur Specific [place] Urine Protein Urine Glucose (UA) Urine Ketones Urine Occult Blood Urine Nitrite Urine Bilirubin Urine Urobilinogen Ur Leukocyte Esterase Urine RBC Urine WBC Ur Squamous Epith Cells Urine Bacteria Urine Mucus Radiography Chest X-Ray - ED: 2 View, Read by ED Physician and Read by Radiologist Diagnostic Testing: Clinical Impression(s) from Imaging Studies Chest X-Ray 09/17/24 13:45 IMPRESSION: Increased linear markings at the lung bases which are new. Follow-up recommended. Reading Location: [facility] PA and lateral chest x-ray was obtained. There are 2 views. On my independent interpretation, lung lara show increased markings in the lung bases. There is normal cardiac silhouette. Bony thorax is normal. Radiologist also interpreted the x-ray and agrees. EKG Initial EKG: Attestation: I personally reviewed and interpreted this EKG as follows: Interpretation: Sinus Rhythm (92) and No Acute Injury Pattern Comments: EKG was obtained. On my independent interpretation, it showed a normal sinus rhythm with a rate of 92. MI interval, QRS interval, and QTc intervals were all normal. [place] was normal. There are no acute ST or T wave changes. Prior EKG tracings: available for review Prior: Unchanged (08/13/2024) Management Discussion w/another healthcare provider: Hospitalist and Architectural Manager Additional Tests and Interventions Additional Tests or Interventions: Urine culture was ordered. Treatment and Re-Evaluation :: Patient was given a dose of Macrobid here. Patient was advised of her findings. Patient was given a dose of Lasix, nitroglycerin paste, and labetalol. Case was discussed with Dr. Evans from cardiology. Recommended admission to the hospital for echocardiogram and further workup. Patient is agreeable with this. Case was discussed with the hospitalist. She will admit the patient for observation. Patient understood and was agreeable with the plan. All questions were answered. Discharge Plan Triage Chief Complaint: Shortness of Breath Other Complaint: Chest Pain ED Provider: Noel Zhou Dx/Rx/DC Orders Clinical Impression: Congestive heart failure, Poorly controlled diabetes mellitus, Hypertension, accelerated, Dyspnea on exertion, Urinary tract infection Prescriptions: No Action biotin 1 mg capsule 1 mg PO DAILY multivitamin Tablet 1 tab PO DAILY Adult 50 Plus Probiotic 4 billion cell capsule 4,000 mmu cells PO DAILY (DME) FreeStyle Chirag 2 Sensor Kit See Rx Instructions .ROUTE .MEDSUPPLY Qty: 2 1RF Rx Instructions: As directed (DME) FreeStyle Chirag 2 Costilla Misc See Rx Instructions .ROUTE .MEDSUPPLY Qty: 1 0RF Rx Instructions: As directed omeprazole 40 mg capsule,delayed release(DR/EC) 40 mg PO DAILY Qty: 90 0RF metformin 500 mg tablet 1,000 mg PO BIDCM Qty: 90 1RF loratadine 10 mg tablet 10 mg PO DAILY Qty: 90 0RF insulin degludec [Tresiba FlexTouch U-100] 100 unit/mL (3 mL) insulin pen 40 unit SUBCUT DAILY insulin lispro [Humalog KwikPen Insulin] 100 unit/mL insulin pen 10 unit subcut TID Patient Comments: Patient reports she misses dose at times Rx Instructions: with meals ibuprofen 800 mg tablet 800 mg PO Q8H PRN (Reason: pain) Patient Comments: TAKE 1 TABLET BY MOUTH THREE TIMES DAILY NEEDED FOR PAIN albuterol sulfate 90 mcg/actuation HFA aerosol inhaler 2 puff INHALATION Q4H PRN (Reason: sob) Patient Comments: Inhale two puffs every 4-6 hours as needed for shortness of breath/cough. hydrochlorothiazide 12.5 mg tablet 12.5 mg PO DAILY Patient Comments: TAKE 1 TABLET BY MOUTH DAILY pregabalin 150 mg capsule 150 mg PO TID Patient Comments: Take 1 capsule by mouth three times a day for 60 days. losartan 50 mg Tablet 50 mg PO BID Primary Care Provider: Nelly Michael Referrals: Nelly Michael, TRANSLATION DIRECTOR-C [Primary Care Provider] - Print Language: Mongolian Disposition Disposition: Acute Care Hospital [facility]
--- NOTE | 2024-09-17 13:45 | RAD_ITS ---
EXAM: CHEST PA AND LATERAL CLINICAL HISTORY: Dyspnea and shortness of breath. COMPARISON: Comparison is made with prior study dated August 13, 2024. TECHNIQUE: PA and lateral chest radiographs were obtained. FINDINGS: New increased markings at the lung bases suggestive of either bibasilar atelectasis and/or early infiltrates. Follow-up recommended. RAD/Chest PA and Lateral IMPRESSION: Increased linear markings at the lung bases which are new. Follow-up recommend ed. Reading Location: [facility]
[2024-09-17 14:08] LABS: Anion Gap 8 (5-15); BUN 20 mg/dL (7-18); Calcium,Total 8.9 mg/dL (8.5-10.1); Chloride 100 mmol/L (98-107); Creatinine, Serum 0.91 mg/dL (0.55-1.02); EST Glomerular Filtration Rate 72 mL/min (>60); Est Glom Filt Rate - Afr Amer 88 mL/min (>60); Estimated Creatinine Clearance 119.19 ml/min; Glucose 309 mg/dL (74-106); Potassium 4.4 mmol/L (3.5-5.1); Sodium Level 132 mmol/L (136-145); Troponin-I HS (w/2H Reflex) 16 pg/mL (3.0-54.0)
--- NOTE | 2024-09-17 14:10 | EKG12_ITS ---
Test Reason : CP Blood Pressure : */* mmHG Vent. Rate : 92 BPM Atrial Rate : 92 BPM P-R Int : 152 ms QRS Dur : 102 ms QT Int : 370 ms P-R-T Axes : 54 18 56 degrees QTcB Int : 457 ms Normal sinus rhythm Normal ECG When compared with ECG of 13-Aug-2024 01:06, No significant change was found Confirmed by DENZEL WELLS, ESTEFANIA ([id number]), editor in chief newspaper KELLY CASTRO ([id number]) on 09/22/2024 8:26:23 AM Referred By: Confirmed By: ESTEFANIA MAHONEY MD
[2024-09-17 14:22] LABS: Mucous, Urine 0 SEEN /hpf (<or=2+)
[2024-09-17 14:26] LABS: Absolute Lymphocyte Count 1.55 X10^3/uL (0.83-4.51); Absolute Neutrophil Count 6.4 X10^3/uL (2.0-7.7); Basophil# 0.05 X10^3/uL; Basophil% 0.6 % (0-1); Eosinophil# 0.32 X10^3/uL; Eosinophils% 3.6 % (0-5); Hematocrit 34.3 % (37-47); Hemoglobin 11.5 g/dL (12.0-15.0); Lymphocyte # 1.55 X10^3/ul (0.83-4.51); Lymphocyte % 17.3 % (19-41); Mean Corp Hgb Conc 33.5 g/dL (32-36); Mean Corpuscular Hgb 26.7 pg (27.0-32.0); Mean Corpuscular Volume 79.8 fL (81-99); Mean Platelet Vol. 12.3 fl (6.2-12.0); Monocyte# 0.56 X10^3/uL; Monocyte% 6.3 % (0-10); NRBC Flagged by Analyzer 0 % (0-5); Neutrophil # 6.39 X10^3/uL (2.7-7.7); Neutrophil % 71.4 % (47-70); Platelet Count 176 K/mm3 (150-450); RBC Distribution Width CV 13.6 % (11.6-14.6); RBC Distribution Width SD 38.4 fl (35.1-43.9); White Blood Count 8.9 K/mm3 (4.4-11.0)
[2024-09-17 14:36] LABS: Color, Urine Yellow (Yellow); Glucose, Dipstick 1000 mg/dl (Normal); Ketone-Dipstick Negative (Negative); Leukocyte Esterase-Dipstick 500 /ul (Negative); Nitrite-Dipstick Negative (Negative); Occult Blood-Urine 250 /ul (Negative); Protein-Dipstick 100 mg/dl (Negative); Urine Bilirubin Dipstick Negative (Negative); Urine Clarity Sl. Cloudy (Clear); Urine Urobilinogen Normal (Normal)
[2024-09-17 14:46] LABS: Bacteria 2+ /hpf (None Seen); Red Blood Cells-Urine 5-10 SEEN /hpf (0-5); Squamous Epithelial Cells - UA 5-10 SEEN /hpf (5-10); White Blood Cells 10-25 SEEN /hpf (0-5)
[2024-09-17] MEDS: Nitrofurantoin Macrocrystals 100 MG Capsule PO (15:16)
[2024-09-17 15:39] LABS: Reflex Troponin-HS? (from REC) Y
[2024-09-17] MEDS: Nitroglycerin Oint 1 INCH PACKET TD (15:52)
[2024-09-17] MEDS: Furosemide 40 MG/4 ML Vial IV ×2 (15:52→22:26)
--- NOTE | 2024-09-17 16:13 | PCM.HP.STD ---
HPI - General General Date of Admission: 09/17/24 Date of Service: 09/17/24 Chief Complaint: Chest pain/shortness of breath HPI Narrative CLAYTON PALM, is a 39 F who presented to the emergency department [facility] on 09/17/2024 with a chief complaint of chest pain and shortness of breath ending getting worse over the 1-2 weeks. She reported that that pain was pressure-like in the substernal area and worse with exertion and better with rest. Patient also admits that in that timeframe she has had about a 30 pound weight gain. She definitely feels like her legs are swollen. She was evaluated in her primary care physician's office today and was referred to the emergency department for further evaluation. Her blood pressure was noted to be markedly elevated at times as well. She also reports that she was recently diagnosed with a inner ear infection and was told recently by ENT that she had MRSA and if she was not better tomorrow she was supposed to call and they would discuss starting antibiotics for the MRSA found on culture. She was also taking ciprofloxacin for urinary tract infection. Cultures were reviewed viewed from her ear and they are showing MRSA and an anaerobic cocci. She has been on eyedrops and systemic oral antibiotics. She denies any cough, fever, or chills. She does complain of predominantly exertional shortness of breath and some orthopnea. Vital signs on presentation showed temperature 97.7, heart rate 103, respiratory rate 20, blood pressure initially was 121/123 with a repeat of 181/109 and pulse ox of 100% on room air. CBC was overtly unremarkable. Chemistry panel showed mild hyponatremia with a sodium of 132, normal renal function and markedly elevated glucose. Glucose was 309 on presentation. Initial troponin was 16 with a delta of 17. BNP was elevated at 142 but stable when compared to previous. EKG was sinus rhythm with no signs of acute ischemia. Chest x-ray showed increased linear markings at the lung bases. 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 [facility] Medical History MRSA (methicillin resistant staph aureus) culture positive Hepatosplenomegaly Tobacco abuse Obesity (BMI 30-39.9) ADHD Panic disorder Borderline personality disorder Bipolar disorder, current episode depressed, severe, without psychotic features Post traumatic stress disorder (PTSD) Necrotizing fasciitis HTN (hypertension) Type 2 diabetes mellitus Lactose intolerance in adult Craniofacial hyperhidrosis Polyneuropathy due to type 2 diabetes mellitus Obesity Open wound of vulva Hemoglobin A1c greater than 9.0% Vulvar abscess History of necrotising fasciitis Fibromyalgia Anxiety and depression History of venous thromboembolism Polycystic ovary Bipolar disorder Hydradenitis Home Medications ?Medication ?Instructions ?Recorded ?Last Taken ?Type biotin 1 mg capsule 1 mg PO DAILY 01/06/22 Unknown History lactobacillus combination no.9 4 4,000 mmu cells PO DAILY 01/06/22 09/16/24 History billion cell capsule (Adult 50 Plus Probiotic) flash glucose scanning reader #1 ea 01/30/23 Unknown Rx (FreeStyle Chirag 2 [place]) flash glucose sensor (FreeStyle #2 ea 01/30/23 Unknown Rx Chirag 2 Sensor kit) loratadine 10 mg tablet 10 mg PO DAILY allergies #90 tabs 01/30/23 09/16/24 Rx metformin 500 mg tablet 1,000 mg (2 x 500 mg) PO BIDCM 01/30/23 09/17/24 Rx diabetes #90 tabs omeprazole 40 mg capsule,delayed 40 mg PO DAILY GERD #90 caps 01/30/23 09/16/24 Rx release insulin degludec 100 unit/mL (3 40 unit subcut QHS diabetes 08/19/23 09/16/24 History mL) subcutaneous pen (Tresiba FlexTouch U-100 insulin) insulin lispro 100 unit/mL 10 unit subcut TIDCM PRN diabetes 11/14/23 09/16/24 History subcutaneous pen (Humalog KwikPen (U-100) Insulin) albuterol sulfate 90 mcg/actuation 2 puff inhalation Q4H PRN sob 06/08/24 Unknown History aerosol inhaler hydrochlorothiazide 12.5 mg tablet 12.5 mg PO DAILY waterv retention 06/08/24 09/17/24 History ibuprofen 800 mg tablet 800 mg PO Q8H PRN pain 06/08/24 Unknown History pregabalin 150 mg capsule 150 mg PO TID pain 06/08/24 09/16/24 History losartan 50 mg tablet 50 mg PO BID 08/13/24 09/17/24 History alpha lipoic acid 200 mg capsule 200 mg PO TID 09/17/24 09/17/24 History calcium carbonate 600 mg PO DAILY 09/17/24 09/16/24 History cholecalciferol (vitamin D3) 10 10 mcg PO DAILY 09/17/24 09/16/24 History mcg (400 unit) capsule (Vitamin D3) ciprofloxacin 0.3 %-dexamethasone 4 drp otic (ear) BID 09/17/24 09/16/24 History 0.1 % ear drops,suspension ciprofloxacin HCl 500 mg tablet 500 mg PO Q12H 09/17/24 09/17/24 History dulaglutide 1.5 mg/0.5 mL 1.5 mg subcut EDDY 09/17/24 09/14/24 History subcutaneous pen injector (Trulicity) ferrous sulfate 325 mg (65 mg 325 mg PO DAILY 09/17/24 09/16/24 History iron) tablet (Feosol) furosemide 20 mg tablet 20 mg PO DAILY 09/17/24 Unknown History lamotrigine 25 mg chewable 25 mg PO DAILY 09/17/24 09/16/24 History dispersible tablet magnesium 1 tab PO DAILY 09/17/24 09/16/24 History mecobalamin (vitamin B12) 1,000 1,000 mcg PO DAILY 09/17/24 09/16/24 History mcg chewable tablet olanzapine 5 mg-samidorphan 10 mg 0.5 tab PO QHS 09/17/24 09/16/24 History tablet (Lybalvi) potassium gluconate 600 mg (99 mg) 600 mg PO DAILY 09/17/24 09/16/24 History tablet prazosin 1 mg capsule 1 mg PO QHS 09/17/24 09/16/24 History Allergy/AdvReac Type Severity Reaction Status Date / Time doxycycline Allergy Severe rash Verified 09/17/24 12:09 amoxicillin (Amoxicillin) Allergy Unknown Verified 09/17/24 12:09 asenapine maleate (From Allergy Unknown Verified 09/17/24 12:09 Saphris) cephalexin AdvReac Intermediate upset Verified 09/17/24 12:09 stomach sulfamethoxazole (From AdvReac Upset Verified 09/17/24 12:09 Bactrim) Stomach trimethoprim (From Bactrim) AdvReac Upset Verified 09/17/24 12:09 Stomach Family History Mother Hypertension Brain aneurysm Father Diabetes Hypertension Grandmother Cancer liver throat kidney Diabetes Hypertension Heart disease CVA (cerebral vascular accident) Breast cancer Grandfather Kidney disease Hypertension CVA (cerebral vascular accident) Surgical History H/O lateral meniscus repair of left knee Social History household members: spouse Smoking Status: Current every day smoker tobacco type: e-cigarettes alcohol intake: never substance use type: does not use caffeine: Yes frequency: 5-6 times per week seatbelt use: always do you feel safe at home: Yes additional social history: Jonathan- Unemployed Patient is on disability ROS Constitutional Constitutional: Reports change in weight; Denies anorexia, chills, fatigue, fever(s), malaise, night sweats, weakness or other Eyes Eyes: Denies blurry vision, change in eye color, change in vision, discharge from eye(s), double vision, erythema, eye pain, loss of vision or other ENT HEENT: Denies abnormal hearing, dysphagia, ear pain, epistaxis, headache(s), hearing loss, nasal congestion, nasal discharge, post nasal drip, sinus pressure, sore throat or other Cardiovascular Cardiovascular: Reports chest pain, dyspnea on exertion, edema and orthopnea; Denies claudication, lightheadedness, palpitations, paroxysmal nocturnal dyspnea, rapid heart rate, syncope or other Respiratory/Chest Respiratory/Chest: Reports dyspnea and shortness of breath with exertion; Denies cough, excessive phlegm production, hemoptysis, productive cough, shortness of breath at rest, wheezing or other Gastrointestinal Gastrointestinal: Denies abdominal pain, coffee ground emesis, constipation, diarrhea, dyspepsia, hematemesis, hematochezia, loose stools, melena, nausea, vomiting or other Genitourinary Genitourinary: Denies burning urination, difficulty urinating, dysuria, hematuria, nocturia, urinary frequency, urinary hesitancy, urinary incontinence, urinary urgency or other Musculoskeletal Musculoskeletal: Denies arthralgias, back pain, joint pain, joint stiffness, joint swelling, myalgias, neck pain or other Neurologic Neurologic: Denies abnormal gait, abnormal speech, confusion, disequilibrium, dizziness, focal weakness, headache(s), numbness, paresthesias, seizure-like activity, seizures, syncope, tingling, tremor(s) or other Psychiatric Psychiatric: Denies anxiety, depression, homicidal ideation, suicidal ideation or other Endocrine Endocrinology: Denies change in body appearance, cold intolerance, excessive sweating, heat intolerance, polydipsia, polyuria or other Hematologic/Lymphatic Hematologic/Lymphatic: Denies anemia, easy bleeding, easy bruising, lymphadenopathy or other Allergic/Immunologic Allergic/Immunologic: Denies rhinitis, hives, eczemia, asthma or other Vital Signs Vital Signs Vital Signs: 09/17/24 12:06 09/17/24 12:26 09/17/24 14:01 Temperature 97.7 F L 98.8 F Temperature Source Oral Oral Pulse Rate 103 H 96 89 Respiratory Rate 20 H 16 17 Blood Pressure 221/123 H 180/109 H 201/115 H Blood Pressure Mean 155 132 143 Pulse Ox 100 97 99 Oxygen Delivery Method Room Air Room Air Room Air 09/17/24 14:21 09/17/24 15:52 09/17/24 15:55 Temperature 98 F Temperature Source Pulse Rate 92 86 Respiratory Rate 16 23 H Blood Pressure 170/90 H 204/117 H 181/101 H Blood Pressure Mean 116 127 Pulse Ox 100 97 Oxygen Delivery Method Room Air Weight Weight: 136.163 kg Body Mass Index (BMI) 45.6 Physical Exam Const alert, oriented x3, no apparent distress and well nourished; Negative for average body habitus or healthy appearing Constitutional Narrative: Morbidly obese, middle-aged, white female, sitting up in bed, appears comfortable, nontoxic General Appearance: cooperative HEENT normocephalic, head/scalp atraumatic, hearing grossly normal bilaterally and moist oral mucous membranes HEENT Narrative: Mallampati 3, no thrush Eyes EOMs intact bilaterally and conjunctivae normal Eyes Narrative: No scleral icterus Neck supple Neck Narrative: Neck is short thick, trachea midline, no thyroid enlargement noted Resp normal respiratory effort, no retractions, no use of accessory muscles and clear to auscultation bilaterally Resp Narrative: Diminished but clear Auscultation: Negative for rales, rhonchi or wheezes Cardio regular rate, regular rhythm, S1 normal heart sound, S2 normal heart sound, no murmurs, no rub and no gallops GI normal to inspection, nondistended, normoactive bowel sounds, soft to palpation and non-tender GI Narrative: Protuberant abdomen Extremity Extremity Narrative: Pedal pulses and radial pulses are 2+, trace to 1+ lower extremity pitting edema, no cyanosis or clubbing Skin skin turgor normal, no jaundice, no petechiae and no mottling Neuro oriented x3, moves all extremities and no focal motor deficits Speech: speech normal Psych affect normal Psych Narrative: Very pleasant, interacts appropriately Results Lab / Micro Data 09/17/24 14:15 09/17/24 12:37 Labs: Laboratory Results - last 24 hr 09/17/24 12:37: WBC Cancelled, Corrected WBC Cancelled, RBC Cancelled, Hgb Cancelled, Hct Cancelled, MCV Cancelled, MCH Cancelled, MCHC Cancelled, RDW Std Deviation Cancelled, RDW Coeff of Amada Cancelled, Plt Count Cancelled, MPV Cancelled, Immature Gran % (Auto) Cancelled, Neut % (Auto) Cancelled, Lymph % (Auto) Cancelled, Grady % (Auto) Cancelled, Eos % (Auto) Cancelled, Baso % (Auto) Cancelled, Absolute Neuts (auto) Cancelled, Absolute Lymphs (auto) Cancelled, Total Counted Cancelled, Neutrophils % (Manual) Cancelled, Band Neutrophils % Cancelled, Lymphocytes % (Manual) Cancelled, Monocytes % (Manual) Cancelled, Eosinophils % (Manual) Cancelled, Basophils % (Manual) Cancelled, Metamyelocytes % Cancelled, Myelocytes % Cancelled, Promyelocytes % Cancelled, Blast Cells % Cancelled, Plasma Cell % (Manual) Cancelled, Other Cells % Cancelled, Nucleated RBC % Cancelled, Nucleated RBCs/100 WBC Cancelled, Differential Comment Cancelled, Diff Path Review Cancelled, Hypersegmented Neuts Cancelled, Atypical Lymphocytes Cancelled, Reactive Lymphocytes Cancelled, Smudge Cells Cancelled, Toxic Granulation Cancelled, Toxic Vacuolation Cancelled, Dohle Bodies Cancelled, Sara Rods Cancelled, Platelet Estimate Cancelled, Plt Morphology Comment Cancelled, RBC Morphology Cancelled 09/17/24 12:37: RBC Morphology Cancelled, Polychromasia Cancelled, Hypochromasia Cancelled, Basophilic Stippling Cancelled, Anisocytosis Cancelled, Microcytosis Cancelled, Macrocytosis Cancelled, Spherocytes Cancelled, Sickle Cells Cancelled, Target Cells Cancelled, Tear Drop Cells Cancelled, Ovalocytes Cancelled, Stomatocytes Cancelled, [place] Bodies Cancelled, [place] Cells Cancelled, Bite Cells Cancelled, Crenated Cell Cancelled, Acanthocytes (Spur) Cancelled, Rouleaux Cancelled, Schistocytes Cancelled, Sodium 132 L, Potassium 4.4, Chloride 100, Carbon Dioxide 24.0, Anion Gap 8, BUN 20 H, Creatinine 0.91, Estim Creat Clear Calc 119.19, Est GFR (MDRD) Af Amer 88, Est GFR (MDRD) Non-Af 72, BUN/Creatinine Ratio 22.0 H, Glucose 309 H, Calcium 8.9, Troponin I High Sens 16, B-Natriuretic Peptide Cancelled 09/17/24 14:14: Urine Color Yellow, Urine Clarity Sl. Cloudy, Urine pH 6.0, Ur Specific [place] 1.020, Urine Protein 100 H, Urine Glucose (UA) 1000 H, Urine Ketones Negative, Urine Occult Blood 250 H, Urine Nitrite Negative, Urine Bilirubin Negative, Urine Urobilinogen Normal, Ur Leukocyte Esterase 500 H, Urine RBC 5-10 SEEN, Urine WBC 10-25 SEEN, Ur Squamous Epith Cells 5-10 SEEN, Urine Bacteria 2+, Urine Mucus 0 SEEN 09/17/24 14:15: WBC 8.9, RBC 4.30, Hgb 11.5 L, Hct 34.3 L, MCV 79.8 L, MCH 26.7 L, MCHC 33.5, RDW Std Deviation 38.4, RDW Coeff of Amada 13.6, Plt Count 176, MPV 12.3 H, Immature Gran % (Auto) 0.800, Neut % (Auto) 71.4 H, Lymph % (Auto) 17.3 L, Grady % (Auto) 6.3, Eos % (Auto) 3.6, Baso % (Auto) 0.6, Absolute Neuts (auto) 6.4, Absolute Lymphs (auto) 1.55, Nucleated RBC % 0, B-Natriuretic Peptide 141.0 H Imaging Radiology Impression Chest X-Ray 09/17/24 13:45 IMPRESSION: Increased linear markings at the lung bases which are new. Follow-up recommended. Reading Location: [facility] Assessment & Plan Assessment/Plan (1) UTI (urinary tract infection): (2) Dyspnea on exertion: (3) Chest pain: (4) Elevated brain natriuretic peptide (BNP) level: PLAN: Plan Dyspnea on exertion with elevated BNP -Concerning for acute heart failure especially with BMI -Check echocardiogram -Fluid restricted diet -Sodium restricted diet -Accurate I's and O's -Attempt to improve blood pressure control -Lasix 40 mg IV push twice daily -Will need ambulatory pulse ox prior to discharge but currently stable on room air at rest Chest pain -Patient with high heart score and significant risk factors -Check a.m. stress test -Cycle cardiac enzymes -Check lipids -Patient with recent hemoglobin A1c on 06/09/2024 that was 10.8 Internal ear infection -Cultures showing MRSA and anaerobic cocci -Continue oral Cipro -Continue Cipro eardrops -Add oral linezolid to cover MRSA Abnormal UA -Culture was sent but patient is currently being treated for UTI -Will consider and do ciprofloxacin and await culture results to see if there is any resistance patterns DM-2 -Hemoglobin A1c was 10.8 on 06/09/2024 -Hold home Trulicity -Hold home metformin -Continue home basal insulin 40 units at at bedtime -Continue home prandial insulin 10 units 3 times daily -SSI with Accu-Cheks as ordered -Continue SSI -Hold all home oral agents Essential hypertension -Continue home prazosin -Continue home losartan 50 mg p.o. twice daily -Continue home HCTZ 12.5 mg p.o. daily -Start Coreg 6.25 mg daily next-start amlodipine 10 mg daily -Continue as needed hydralazine for systolic pressure greater than 150 Multiple sclerosis -Recent diagnosis -Patient is not on any medical treatment at this time -Per patient she is in the final stages of evaluation with her neurologist and will follow-up with them after discharge History of VTE -Twice daily Lovenox subcu -Patient is no longer anticoagulated on a chronic basis Hepatosplenomegaly -Suspect related to fatty liver disease from uncontrolled diabetes -Outpatient follow-up Fibromyalgia/neuropathy -Continue home Lyrica GERD -Continue home PPI Bipolar disorder/PTSD/ADHD -Continue home olanzapine/samidorphan -Continue home BuSpar -Continue home Lamictal Seasonal allergies -Continue home loratadine Obesity -BMI 44.7 -Recommend weight loss -Complicates treatment, prognosis, outcomes DVT prophylaxis -Lovenox 40 twice daily CODE STATUS -Full code Charges/Coding Visit Charges Inpatient E&M: 40777 Init Hosp L3
[2024-09-17 16:34] LABS: Troponin-I HS 19 pg/mL (3.0-54.0)
--- NOTE | 2024-09-17 17:27 | ECHOCS_ITS ---
Reason For Study Reason For Study: DYSPNEA Procedure This was a 2D Doppler, Color Flow transthoracic echocardiogram. The study was technically difficult. Contrast injection was performed. Exam performed in department. Left Ventricle Normal LV size. The estimated ejection fraction is 55-60 %. No evidence for diastolic dysfunction. No regional wall motion abnormalities noted. Right Ventricle Normal RV size. Normal systolic function. Atria The left and right atria are normal. No doppler evidence for ASD. Mitral Valve There is no mitral valve stenosis. Mild (1+) mitral valve insufficiency. Tricuspid Valve There is no tricuspid stenosis. No tricuspid valve insufficiency. Aortic Valve Trisinus/trileaflet aortic valve. There is no aortic stenosis. No aortic valve insufficiency. Pulmonic Valve There is no pulmonic valvular stenosis. No pulmonic valve insufficiency. Great Vessels Normal aortic root. Pericardium/Pleural No pericardial effusion. Medication Diluted definity 2ml given slow IV push to enhance endocardial definition. MMode/2D Measurements & Calculations LVIDd: 5.1 cm IVSd: 1.3 cm LVOT diam: 1.9 cm LVIDs: 3.6 cm LVPWd: 1.2 cm RVDd: 3.4 cm FS: 28.3 % LVOT area: 2.8 cm2 asc Aorta Diam: 2.9 cm LAV(MOD-bp): 67.9 ml LVAd ap4: 47.3 cm2 LAV(MOD-bp) Indexed: 28.1 ml/m2 LVLd ap4: 9.5 cm LAV(MOD-sp2): 60.1 ml EDV(MOD-sp4): 190.3 ml LAV(MOD-sp4): 65.9 ml EDV(sp4-el): 200.2 ml LVAs ap4: 31.1 cm2 LVLs ap4: 8.1 cm ESV(MOD-sp4): 99.1 ml ESV(sp4-el): 101.6 ml EF(MOD-sp4): 47.9 % EF(sp4-el): 49.3 % LVAd ap2: 45.6 cm2 SV(MOD-sp4): 91.2 ml SV(MOD-sp2): 95.0 ml LVLd ap2: 9.5 cm SI(MOD-sp4): 37.7 ml/m2 SI(MOD-sp2): 39.3 ml/m2 EDV(MOD-sp2): 176.4 ml EDV(sp2-el): 185.6 ml LVAs ap2: 28.7 cm2 LVLs ap2: 8.3 cm ESV(MOD-sp2): 81.4 ml ESV(sp2-el): 84.5 ml EF(MOD-sp2): 53.8 % SV(sp4-el): 98.6 ml Ao sinus diam: 2.[address] Junction: 2.5 cm LA dimension(2D): 4.3 cm LA A4 area: 22.4 cm2 RA A4 area: 12.3 cm2 TAPSE: 2.1 cm Time Measurements MV dec time: 0.16 sec Doppler Measurements & Calculations MV E max reese: 91.9 cm/sec Lat Peak E' Reese: 11.3 cm/sec Med Peak E' Reese: 7.7 cm/sec MV A max reese: 76.6 cm/sec E/E' lat: 8.1 E/E' med: 11.9 MV E/A: 1.2 MV dec slope: 582.7 cm/sec2 Ao V2 max: 152.9 cm/sec LV V1 max: 122.2 cm/sec Ao max P.3 mmHg LV V1 max P.0 mmHg Ao V2 mean: 113.2 cm/sec LV V1 mean P.4 mmHg Ao mean P.7 mmHg LV V1 mean: 87.1 cm/sec Ao V2 VTI: 33.9 cm LV V1 VTI: 25.6 cm AV (velocity ratio): 0.75 MARCUS(I,D): 2.1 cm2 MARCUS(V,D): 2.3 cm2 SV(LVOT): 72.1 ml PA V2 max: 94.0 cm/sec ECHO/Echo Complete W/ Contrast Interpretation Summary The estimated ejection fraction is 55-60 %. No evidence for diastolic dysfunction. Mild (1+) mitral valve insufficiency. Ordering Physician: Faith Scott Performed By: Jaquelin Argueta RDCS
[2024-09-17 18:49] LABS: Bedside Glucose 281 mg/dL (74-106)
[2024-09-17 19:53] LABS: Troponin-I HS 17 pg/mL (3.0-54.0)
[2024-09-17 21:26] LABS: Troponin-I HS 15 pg/mL (3.0-54.0)
[2024-09-17] MEDS: Insulin Glargine-YFGN 100 UNIT/ML Pen 40 UNIT SC (22:23)
[2024-09-17] MEDS: Carvedilol 6.25 MG Tablet PO (22:25)
[2024-09-17] MEDS: Prazosin HCl 1 MG Capsule PO (22:25)
[2024-09-17] MEDS: Pregabalin 75 MG Capsule 150 MG PO (22:26)
[2024-09-17] MEDS: Losartan Potassium 50 MG Tablet PO (22:26)
[2024-09-17] MEDS: Ciprofloxacin 500 MG Tablet PO (22:26)
[2024-09-17] MEDS: Acetaminophen 325 MG Tablet 650 MG PO (22:35)
[2024-09-17] MEDS: Insulin Lispro 100 UNIT/ML INSULN.PEN SC (22:37)
[2024-09-17 23:20] LABS: Bedside Glucose 421 mg/dL (74-106)
[2024-09-18 01:14] LABS: Troponin-I HS 14 pg/mL (3.0-54.0)
[2024-09-18 03:00] VITALS: BP 123/65; PULSE 88; RESP 18; TEMP 36; O2SAT 96
[2024-09-18 03:44] VITALS: BMI 45.2
--- NOTE | 2024-09-18 05:55 | EKG12_ITS ---
Test Reason : AM EKG Blood Pressure : */* mmHG Vent. Rate : 80 BPM Atrial Rate : 80 BPM P-R Int : 152 ms QRS Dur : 98 ms QT Int : 416 ms P-R-T Axes : 52 32 77 degrees QTcB Int : 479 ms Normal sinus rhythm Normal ECG When compared with ECG of 17-Sep-2024 12:18, MANUAL COMPARISON REQUIRED DATA IS UNCONFIRMED Confirmed by DENZEL WELLS, ESTEFANIA ([id number]), video news editor KELLY CASTRO ([id number]) on 09/19/2024 1:04:35 PM Referred By: CHRIS Confirmed By: ESTEFANIA MAHONEY MD
[2024-09-18 06:21] LABS: Bedside Glucose 326 mg/dL (74-106)
[2024-09-18] MEDS: Losartan Potassium 50 MG Tablet PO (06:30)
[2024-09-18 06:59] LABS: Absolute Lymphocyte Count 1.36 X10^3/uL (0.83-4.51); Absolute Neutrophil Count 5.2 X10^3/uL (2.0-7.7); Basophil# 0.04 X10^3/uL; Basophil% 0.5 % (0-1); Eosinophil# 0.22 X10^3/uL; Hematocrit 33.2 % (37-47); Hemoglobin 10.7 g/dL (12.0-15.0); Lymphocyte # 1.36 X10^3/ul (0.83-4.51); Lymphocyte % 18.5 % (19-41); Mean Corp Hgb Conc 32.2 g/dL (32-36); Mean Corpuscular Hgb 26.2 pg (27.0-32.0); Mean Corpuscular Volume 81.2 fL (81-99); Mean Platelet Vol. 11.9 fl (6.2-12.0); Monocyte# 0.52 X10^3/uL; Monocyte% 7.1 % (0-10); NRBC Flagged by Analyzer 0 % (0-5); Neutrophil # 5.18 X10^3/uL (2.7-7.7); Neutrophil % 70.2 % (47-70); Platelet Count 158 K/mm3 (150-450); RBC Distribution Width CV 13.6 % (11.6-14.6); RBC Distribution Width SD 39.9 fl (35.1-43.9); Red Blood Count 4.09 M/mm3 (4.2-5.4); White Blood Count 7.4 K/mm3 (4.4-11.0)
[2024-09-18 08:02] LABS: ALB/GLOB Ratio 0.7 RATIO (0.9-2.4); AST(SGOT) 18 U/L (15-37); Alanine Aminotransfer ALT/SGPT 26 U/L (13-56); Albumin, Serum 2.5 g/dL (3.2-5.0); Alkaline Phosphatase 58 U/L (45-117); Anion Gap 8 (5-15); BUN 25 mg/dL (7-18); BUN/Creat Ratio 21.6 RATIO (10-20); Calcium,Total 8.7 mg/dL (8.5-10.1); Chloride 100 mmol/L (98-107); Creatinine, Serum 1.16 mg/dL (0.55-1.02); EST Glomerular Filtration Rate 55 mL/min (>60); Est Glom Filt Rate - Afr Amer 66 mL/min (>60); Estimated Creatinine Clearance 93.04 ml/min; Globulin 3.4 g/dL (2.2-4.2); Glucose 321 mg/dL (74-106); Magnesium 1.8 mg/dL (1.6-2.6); Phosphorus 4.6 mg/dL (2.5-4.9); Potassium 3.8 mmol/L (3.5-5.1); Protein, Total 5.9 g/dL (6.4-8.2); Sodium Level 134 mmol/L (136-145)
--- NOTE | 2024-09-18 08:07 | PN.HOSP_ITS ---
Reason for Visit Reason for Visit: Diagnoses Urinary tract infection, site not specified (09/17/24) Other forms of dyspnea (09/17/24) Chest pain, unspecified (09/17/24) Other specified abnormal findings of blood chemistry (09/17/24) Subjective Subjective Feels well. Edema improved. Objective Data Objective Data Vital Signs: Vital Signs Temp Pulse Resp BP Pulse Ox O2 Del Method 36.0 C L 88 18 123/65 H 96 Room Air 09/18/24 03:00 09/18/24 03:00 09/18/24 03:00 09/18/24 03:00 09/18/24 03:00 09/18/24 03:00 Oxygen Delivery Method Room Air Weight: 135 kg Body Mass Index (BMI) 45.2 Intake & Output: Intake and Output for Last 24 Hours 09/16/24 09/17/24 09/18/24 23:59 23:59 23:59 Intake Total 500 / 500 Balance 500 / 500 Lab / Micro Data 09/18/24 06:49 09/18/24 06:49 Labs: Laboratory Results - last 24 hr 09/17/24 12:37: WBC Cancelled, Corrected WBC Cancelled, RBC Cancelled, Hgb Cancelled, Hct Cancelled, MCV Cancelled, MCH Cancelled, MCHC Cancelled, RDW Std Deviation Cancelled, RDW Coeff of Amada Cancelled, Plt Count Cancelled, MPV Cancelled, Immature Gran % (Auto) Cancelled, Neut % (Auto) Cancelled, Lymph % (Auto) Cancelled, [place] % (Auto) Cancelled, Eos % (Auto) Cancelled, Baso % (Auto) Cancelled, Absolute Neuts (auto) Cancelled, Absolute Lymphs (auto) Cancelled, Total Counted Cancelled, Neutrophils % (Manual) Cancelled, Band Neutrophils % Cancelled, Lymphocytes % (Manual) Cancelled, Monocytes % (Manual) Cancelled, Eosinophils % (Manual) Cancelled, Basophils % (Manual) Cancelled, Metamyelocytes % Cancelled, Myelocytes % Cancelled, Promyelocytes % Cancelled, Blast Cells % Cancelled, Plasma Cell % (Manual) Cancelled, Other Cells % Cancelled, Nucleated RBC % Cancelled, Nucleated RBCs/100 WBC Cancelled, Differential Comment Cancelled, Diff Path Review Cancelled, Hypersegmented Neuts Cancelled, Atypical Lymphocytes Cancelled, Reactive Lymphocytes Cancelled, Smudge Cells Cancelled, Toxic Granulation Cancelled, Toxic Vacuolation Cancelled, Dohle Bodies Cancelled, Sara Rods Cancelled, Platelet Estimate Cancelled, Plt Morphology Comment Cancelled, RBC Morphology Cancelled 09/17/24 12:37: RBC Morphology Cancelled, Polychromasia Cancelled, Hypochromasia Cancelled, Basophilic Stippling Cancelled, Anisocytosis Cancelled, Microcytosis Cancelled, Macrocytosis Cancelled, Spherocytes Cancelled, Sickle Cells Cancelled, Target Cells Cancelled, Tear Drop Cells Cancelled, Ovalocytes Cancelled, Stomatocytes Cancelled, [place] Bodies Cancelled, [place] Cells Cancelled, Bite Cells Cancelled, Crenated Cell Cancelled, Acanthocytes (Spur) Cancelled, Rouleaux Cancelled, Schistocytes Cancelled, Sodium 132 L, Potassium 4.4, Chloride 100, Carbon Dioxide 24.0, Anion Gap 8, BUN 20 H, Creatinine 0.91, Estim Creat Clear Calc 119.19, Est GFR (MDRD) Af Amer 88, Est GFR (MDRD) Non-Af 72, BUN/Creatinine Ratio 22.0 H, Glucose 309 H, Calcium 8.9, Troponin I High Sens 16, B-Natriuretic Peptide Cancelled 09/17/24 14:14: Urine Color Yellow, Urine Clarity Sl. Cloudy, Urine pH 6.0, Ur Specific [place] 1.020, Urine Protein 100 H, Urine Glucose (UA) 1000 H, Urine Ketones Negative, Urine Occult Blood 250 H, Urine Nitrite Negative, Urine Bilirubin Negative, Urine Urobilinogen Normal, Ur Leukocyte Esterase 500 H, Urine RBC 5-10 SEEN, Urine WBC 10-25 SEEN, Ur Squamous Epith Cells 5-10 SEEN, Urine Bacteria 2+, Urine Mucus 0 SEEN 09/17/24 14:15: WBC 8.9, RBC 4.30, Hgb 11.5 L, Hct 34.3 L, MCV 79.8 L, MCH 26.7 L, MCHC 33.5, RDW Std Deviation 38.4, RDW Coeff of Amada 13.6, Plt Count 176, MPV 12.3 H, Immature Gran % (Auto) 0.800, Neut % (Auto) 71.4 H, Lymph % (Auto) 17.3 L, [place] % (Auto) 6.3, Eos % (Auto) 3.6, Baso % (Auto) 0.6, Absolute Neuts (auto) 6.4, Absolute Lymphs (auto) 1.55, Nucleated RBC % 0, B-Natriuretic Peptide 141.0 H 09/17/24 16:10: Troponin I High Sens 19 09/17/24 18:31: POC Glucose 281 H 09/17/24 19:21: Troponin I High Sens 17 09/17/24 21:00: Troponin I High Sens 15 09/17/24 22:21: POC Glucose 421 H 09/18/24 00:50: Troponin I High Sens 14 09/18/24 05:59: POC Glucose 326 H 09/18/24 06:49: WBC 7.4, RBC 4.09 L, Hgb 10.7 L, Hct 33.2 L, MCV 81.2, MCH 26.2 L, MCHC 32.2, RDW Std Deviation 39.9, RDW Coeff of Amada 13.6, Plt Count 158, MPV 11.9, Immature Gran % (Auto) 0.700, Neut % (Auto) 70.2 H, Lymph % (Auto) 18.5 L, [place] % (Auto) 7.1, Eos % (Auto) 3.0, Baso % (Auto) 0.5, Absolute Neuts (auto) 5.2, Absolute Lymphs (auto) 1.36, Nucleated RBC % 0, Sodium 134 L, Potassium 3.8, Chloride 100, Carbon Dioxide 26.0, Anion Gap 8, BUN 25 H, Creatinine 1.16 H , Estim Creat Clear Calc 93.04, Est GFR (MDRD) Af Amer 66, Est GFR (MDRD) Non-Af 55 L, BUN/Creatinine Ratio 21.6 H, Glucose 321 H, Calcium 8.7, Phosphorus 4.6, Magnesium 1.8, Total Bilirubin 0.50, AST 18, ALT 26, Alkaline Phosphatase 58, T otal Protein 5.9 L, Albumin 2.5 L, Globulin 3.4, Albumin/Globulin Ratio 0.7 L Radiography Diagnostic Testing: Radiology Impression Chest X-Ray 09/17/24 13:45 IMPRESSION: Increased linear markings at the lung bases which are new. Follow-up recommended. Reading Location: [place] [id number] Physical Exam Const alert and no apparent distress HEENT head/scalp atraumatic and moist oral mucous membranes Resp normal respiratory effort, no retractions, no use of accessory muscles and clear to auscultation bilaterally Cardio regular rate, regular rhythm, S1 normal heart sound and S2 normal heart sound GI normal to inspection, nondistended, normoactive bowel sounds, soft to palpation, non-tender and non-distended Extremity normal to inspection and full ROM Assessment & Plan Assessment/Plan (1) UTI (urinary tract infection): (2) Dyspnea on exertion: (3) Chest pain: (4) Elevated brain natriuretic peptide (BNP) level: PLAN: Plan Acute HFpEF * echo ordered * on IV furosemide + carvedilol 6.25 BID + losartan 50 BID. Change furosemide to PO. Fluid restrict daily weight. * weight is up 18 kg since July Chest pain * stress test ordered. * Noted that EF was 47% on stress test, cardiology recommending [facility], patient declined. Follow up with cardiology as outpt. * start ASA and HIS. OM * culture positive for MRSA and anaerobic cocci * started on linezolid and cipro ear gtt * follow up with ENT Recent UTI: * UA here benign, but was already on PO ciprofloxacin, which has been continued DM2 * a1c 10.8 from June 09 * at home takes degludec 40 QHS and lispro with meals. Glucose has been uncontrolled. Will change basal insulin to 30 BID. DVT prophylaxis -Lovenox 40 twice daily CODE STATUS -Full code
[2024-09-18 10:49] VITALS: BP 163/88; PULSE 88; RESP 17; TEMP 37.1; O2SAT 99
[2024-09-18] MEDS: Pantoprazole Sodium 40 MG Tablet PO (10:59)
[2024-09-18] MEDS: Linezolid 600 MG Tablet PO (10:59)
[2024-09-18] MEDS: Cyanocobalamin 500 MCG Tablet 1000 MCG PO (10:59)
[2024-09-18] MEDS: Calcium Carbonate 500 MG Tablet PO (10:59)
[2024-09-18] MEDS: Ciprofloxacin 500 MG Tablet PO (11:00)
[2024-09-18] MEDS: amLODIPine 10 MG Tablet PO (11:00)
[2024-09-18] MEDS: Cholecalciferol (VIT D3) 25 MCG TABLET (1,000 UNITS) PO (11:00)
[2024-09-18] MEDS: Loratadine 10 MG Tablet PO (11:00)
[2024-09-18] MEDS: Acetaminophen 325 MG Tablet 650 MG PO (11:00)
[2024-09-18] MEDS: lamoTRIgine 25 MG Tablet PO (11:00)
[2024-09-18] MEDS: Carvedilol 6.25 MG Tablet PO (11:00)
[2024-09-18] MEDS: Furosemide 40 MG/4 ML Vial IV (11:01)
[2024-09-18] MEDS: Ferrous Sulfate 325 MG Tablet PO (11:01)
[2024-09-18] MEDS: 0.9% Saline Lock 10 ML Syringe IV (11:02)
[2024-09-18] MEDS: Insulin Glargine-YFGN 100 UNIT/ML Pen 30 UNIT SC (11:03)
--- NOTE | 2024-09-18 11:28 | STRESSREP ---
Stress Test Report Date: 09/18/2024 Procedure: Exercise tolerance test/imaging study Indications: Chest pain Consent: Per the patient Procedure: The patient exercised on a Sulaiman protocol for 4 minutes achieving a peak heart rate of 155 bpm (86% predicted maximal heart rate) with a peak blood pressure 230/94 mmHg and a peak MET capacity of 7 METs. The baseline ECG demonstrated normal sinus rhythm, poor R wave progression in the anterior leads. The peak exercise ECG demonstrated no significant ischemic changes. EKG during recovery revealed no significant ischemic changes [There were no cardiac dysrhythmias pretest, during exercise, or recovery]. The functional capacity was considered decreased for age. Patient had mild chest pressure early in the recovery phase. The examination was discontinued secondary to dyspnea. Impression: 1. Technically adequate (percent predicted maximal heart rate greater than 85%) exercise tolerance test 2. Stress test is negative for exercise-induced EKG changes of ischemia 3. The test test is positive for exercise-induced chest pain 4. Functional capacity is decreased for age 5. Nuclear images pending Myocardial perfusion imaging study: Technique: The patient was injected with 15 mCi of technetium 99m Cardiolite and subsequently rest SPECT Cardiolite nuclear imaging was obtained in the horizontal long, vertical long, and short axis views. The patient exercised on a Sulaiman protocol. Please see above for details. The patient was injected with 44.8 mCi of technetium 99m Cardiolite and subsequently stress SPECT Cardiolite nuclear imaging was obtained in the horizontal long, vertical long, and short axis views. A gated Cardiolite study at peak stress was obtained. Interpretation: Rest and stress SPECT Cardiolite nuclear imaging status post realignment, normalization, and attenuation correction, demonstrates mild to moderate decreased uptake in the anterior wall on both the rest and stress images prior to attenuation correction that improves with attenuation correction suggestive of breast attenuation artifact. No definite evidence of significant ischemia or infarction. The gated Cardiolite study demonstrates mild apical hypokinesis. The reported LVEF is 47%. Impression: 1. There is no evidence of significant ischemia or infarction. 2. The gated Cardiolite study reports an LVEF of 47%. Patient's 2D echo was reviewed and shows preserved EF with no significant wall motion abnormalities. Please correlate clinically. This note was generated with Sliced Applesation software. It may contain incorrect words, spelling, and punctuation that were not noted in checking the note before signing.
[2024-09-18] MEDS: Insulin Lispro 100 UNIT/ML INSULN.PEN SC (12:03)
--- NOTE | 2024-09-18 12:20 | PCM.CONS.C ---
Assessment & Plan Assessment/Plan (1) Chest pain: QUALIFIERS: Chest pain type: unspecified Qualified Code(s): R07.9 - Chest pain, unspecified PLAN: Chest pain on exertion is concerning. Discussed treatment options with the patient in detail. Will proceed with coronary angiography. Patient understands the risks and benefits and wishes to proceed. HPI Consult Data Date of Consult: 09/18/24 HPI Narrative Reason for Consultation: Chest pain HPI Narrative: CLAYTON PALM, is a 39 F who presents with chest pressure on exertion. She underwent stress testing and had chest pressure early in the recovery phase. Stress test did not reveal any evidence of ischemia. On the stress test the ejection fraction was 47% with apical hypokinesis. However on 2D echo there was no wall motion abnormality and ejection fraction was 55 to 60%. It is likely that the lower ejection fraction and wall motion abnormality on the stress test is an artifact. [facility] Medical History MRSA (methicillin resistant staph aureus) culture positive Hepatosplenomegaly Tobacco abuse Obesity (BMI 30-39.9) ADHD Panic disorder Borderline personality disorder Bipolar disorder, current episode depressed, severe, without psychotic features Post traumatic stress disorder (PTSD) Necrotizing fasciitis HTN (hypertension) Type 2 diabetes mellitus Lactose intolerance in adult Craniofacial hyperhidrosis Polyneuropathy due to type 2 diabetes mellitus Obesity Open wound of vulva Hemoglobin A1c greater than 9.0% Vulvar abscess History of necrotising fasciitis Fibromyalgia Anxiety and depression History of venous thromboembolism Polycystic ovary Bipolar disorder Hydradenitis Home Medications ?Medication ?Instructions ?Recorded ?Last Taken ?Type biotin 1 mg capsule 1 mg PO DAILY 01/06/22 Unknown History lactobacillus combination no.9 4 4,000 mmu cells PO DAILY 01/06/22 09/16/24 History billion cell capsule (Adult 50 Plus Probiotic) flash glucose scanning reader #1 ea 01/30/23 Unknown Rx (FreeStyle Chirag 2 [place]) flash glucose sensor (FreeStyle #2 ea 01/30/23 Unknown Rx Chirag 2 Sensor kit) loratadine 10 mg tablet 10 mg PO DAILY allergies #90 tabs 01/30/23 09/16/24 Rx metformin 500 mg tablet 1,000 mg (2 x 500 mg) PO BIDCM 01/30/23 09/17/24 Rx diabetes #90 tabs omeprazole 40 mg capsule,delayed 40 mg PO DAILY GERD #90 caps 01/30/23 09/16/24 Rx release insulin degludec 100 unit/mL (3 40 unit subcut QHS diabetes 08/19/23 09/16/24 History mL) subcutaneous pen (Tresiba FlexTouch U-100 insulin) insulin lispro 100 unit/mL 10 unit subcut TIDCM PRN diabetes 11/14/23 09/16/24 History subcutaneous pen (Humalog KwikPen (U-100) Insulin) albuterol sulfate 90 mcg/actuation 2 puff inhalation Q4H PRN sob 06/08/24 Unknown History aerosol inhaler hydrochlorothiazide 12.5 mg tablet 12.5 mg PO DAILY waterv retention 06/08/24 09/17/24 History ibuprofen 800 mg tablet 800 mg PO Q8H PRN pain 06/08/24 Unknown History pregabalin 150 mg capsule 150 mg PO TID pain 06/08/24 09/16/24 History losartan 50 mg tablet 50 mg PO BID 08/13/24 09/17/24 History alpha lipoic acid 200 mg capsule 200 mg PO TID 09/17/24 09/17/24 History calcium carbonate 600 mg PO DAILY 09/17/24 09/16/24 History cholecalciferol (vitamin D3) 10 10 mcg PO DAILY 09/17/24 09/16/24 History mcg (400 unit) capsule (Vitamin D3) ciprofloxacin 0.3 %-dexamethasone 4 drp otic (ear) BID 09/17/24 09/16/24 History 0.1 % ear drops,suspension ciprofloxacin HCl 500 mg tablet 500 mg PO Q12H 09/17/24 09/17/24 History dulaglutide 1.5 mg/0.5 mL 1.5 mg subcut EDDY 09/17/24 09/14/24 History subcutaneous pen injector (Trulicity) ferrous sulfate 325 mg (65 mg 325 mg PO DAILY 09/17/24 09/16/24 History iron) tablet (Feosol) furosemide 20 mg tablet 20 mg PO DAILY 09/17/24 Unknown History lamotrigine 25 mg chewable 25 mg PO DAILY 09/17/24 09/16/24 History dispersible tablet magnesium 1 tab PO DAILY 09/17/24 09/16/24 History mecobalamin (vitamin B12) 1,000 1,000 mcg PO DAILY 09/17/24 09/16/24 History mcg chewable tablet olanzapine 5 mg-samidorphan 10 mg 0.5 tab PO QHS 09/17/24 09/16/24 History tablet (Lybalvi) potassium gluconate 600 mg (99 mg) 600 mg PO DAILY 09/17/24 09/16/24 History tablet prazosin 1 mg capsule 1 mg PO QHS 09/17/24 09/16/24 History Allergy/AdvReac Type Severity Reaction Status Date / Time doxycycline Allergy Severe rash Verified 09/17/24 12:09 amoxicillin (Amoxicillin) Allergy Unknown Verified 09/17/24 12:09 asenapine maleate (From Allergy Unknown Verified 09/17/24 12:09 Saphris) cephalexin AdvReac Intermediate upset Verified 09/17/24 12:09 stomach sulfamethoxazole (From AdvReac Upset Verified 09/17/24 12:09 Bactrim) Stomach trimethoprim (From Bactrim) AdvReac Upset Verified 09/17/24 12:09 Stomach Family History Mother Hypertension Brain aneurysm Father Diabetes Hypertension Grandmother Cancer liver throat kidney Diabetes Hypertension Heart disease CVA (cerebral vascular accident) Breast cancer Grandfather Kidney disease Hypertension CVA (cerebral vascular accident) Surgical History H/O lateral meniscus repair of left knee Social History household members: spouse Smoking Status: Current every day smoker tobacco type: e-cigarettes alcohol intake: never substance use type: does not use caffeine: Yes frequency: 5-6 times per week seatbelt use: always do you feel safe at home: Yes additional social history: Jonathan- Unemployed Patient is on disability Physical Exam Const alert and oriented x3 HEENT normocephalic Eyes no scleral icterus Resp normal respiratory effort Risk Stratification Risk Stratification Applicable: No Charges/Coding Visit Charges Inpatient E&M: 96875 Init Hosp L2 Objective Data Vital Signs: Vital Signs Temp Pulse Resp BP Pulse Ox O2 Del Method 98.7 F 88 17 163/88 H 99 Room Air 09/18/24 10:49 09/18/24 10:49 09/18/24 10:49 09/18/24 10:49 09/18/24 10:49 09/18/24 11:19 Oxygen Delivery Method Room Air Weight: 297 lb 9.985 oz Body Mass Index (BMI) 45.2 Intake & Output: Intake and Output for Last 24 Hours 09/16/24 09/17/24 09/18/24 23:59 23:59 23:59 Intake Total 500 / 500 Balance 500 / 500 Lab / Micro Data 09/18/24 06:49 09/18/24 06:49 Labs: Laboratory Results - last 24 hr 09/17/24 12:37: WBC Cancelled, Corrected WBC Cancelled, RBC Cancelled, Hgb Cancelled, Hct Cancelled, MCV Cancelled, MCH Cancelled, MCHC Cancelled, RDW Std Deviation Cancelled, RDW Coeff of Amada Cancelled, Plt Count Cancelled, MPV Cancelled, Immature Gran % (Auto) Cancelled, Neut % (Auto) Cancelled, Lymph % (Auto) Cancelled, [place] % (Auto) Cancelled, Eos % (Auto) Cancelled, Baso % (Auto) Cancelled, Absolute Neuts (auto) Cancelled, Absolute Lymphs (auto) Cancelled, Total Counted Cancelled, Neutrophils % (Manual) Cancelled, Band Neutrophils % Cancelled, Lymphocytes % (Manual) Cancelled, Monocytes % (Manual) Cancelled, Eosinophils % (Manual) Cancelled, Basophils % (Manual) Cancelled, Metamyelocytes % Cancelled, Myelocytes % Cancelled, Promyelocytes % Cancelled, Blast Cells % Cancelled, Plasma Cell % (Manual) Cancelled, Other Cells % Cancelled, Nucleated RBC % Cancelled, Nucleated RBCs/100 WBC Cancelled, Differential Comment Cancelled, Diff Path Review Cancelled, Hypersegmented Neuts Cancelled, Atypical Lymphocytes Cancelled, Reactive Lymphocytes Cancelled, Smudge Cells Cancelled, Toxic Granulation Cancelled, Toxic Vacuolation Cancelled, Dohle Bodies Cancelled, Sara Rods Cancelled, Platelet Estimate Cancelled, Plt Morphology Comment Cancelled, RBC Morphology Cancelled 09/17/24 12:37: RBC Morphology Cancelled, Polychromasia Cancelled, Hypochromasia Cancelled, Basophilic Stippling Cancelled, Anisocytosis Cancelled, Microcytosis Cancelled, Macrocytosis Cancelled, Spherocytes Cancelled, Sickle Cells Cancelled, Target Cells Cancelled, Tear Drop Cells Cancelled, Ovalocytes Cancelled, Stomatocytes Cancelled, [place] Bodies Cancelled, [place] Cells Cancelled, Bite Cells Cancelled, Crenated Cell Cancelled, Acanthocytes (Spur) Cancelled, Rouleaux Cancelled, Schistocytes Cancelled, Sodium 132 L, Potassium 4.4, Chloride 100, Carbon Dioxide 24.0, Anion Gap 8, BUN 20 H, Creatinine 0.91, Estim Creat Clear Calc 119.19, Est GFR (MDRD) Af Amer 88, Est GFR (MDRD) Non-Af 72, BUN/Creatinine Ratio 22.0 H, Glucose 309 H, Calcium 8.9, Troponin I High Sens 16, B-Natriuretic Peptide Cancelled 09/17/24 14:14: Urine Color Yellow, Urine Clarity Sl. Cloudy, Urine pH 6.0, Ur Specific [place] 1.020, Urine Protein 100 H, Urine Glucose (UA) 1000 H, Urine Ketones Negative, Urine Occult Blood 250 H, Urine Nitrite Negative, Urine Bilirubin Negative, Urine Urobilinogen Normal, Ur Leukocyte Esterase 500 H, Urine RBC 5-10 SEEN, Urine WBC 10-25 SEEN, Ur Squamous Epith Cells 5-10 SEEN, Urine Bacteria 2+, Urine Mucus 0 SEEN 09/17/24 14:15: WBC 8.9, RBC 4.30, Hgb 11.5 L, Hct 34.3 L, MCV 79.8 L, MCH 26.7 L, MCHC 33.5, RDW Std Deviation 38.4, RDW Coeff of Amada 13.6, Plt Count 176, MPV 12.3 H, Immature Gran % (Auto) 0.800, Neut % (Auto) 71.4 H, Lymph % (Auto) 17.3 L, [place] % (Auto) 6.3, Eos % (Auto) 3.6, Baso % (Auto) 0.6, Absolute Neuts (auto) 6.4, Absolute Lymphs (auto) 1.55, Nucleated RBC % 0, B-Natriuretic Peptide 141.0 H 09/17/24 16:10: Troponin I High Sens 19 09/17/24 18:31: POC Glucose 281 H 09/17/24 19:21: Troponin I High Sens 17 09/17/24 21:00: Troponin I High Sens 15 09/17/24 22:21: POC Glucose 421 H 09/18/24 00:50: Troponin I High Sens 14 09/18/24 05:59: POC Glucose 326 H 09/18/24 06:49: WBC 7.4, RBC 4.09 L, Hgb 10.7 L, Hct 33.2 L, MCV 81.2, MCH 26.2 L, MCHC 32.2, RDW Std Deviation 39.9, RDW Coeff of Amada 13.6, Plt Count 158, MPV 11.9, Immature Gran % (Auto) 0.700, Neut % (Auto) 70.2 H, Lymph % (Auto) 18.5 L, [place] % (Auto) 7.1, Eos % (Auto) 3.0, Baso % (Auto) 0.5, Absolute Neuts (auto) 5.2, Absolute Lymphs (auto) 1.36, Nucleated RBC % 0, Sodium 134 L, Potassium 3.8, Chloride 100, Carbon Dioxide 26.0, Anion Gap 8, BUN 25 H, Creatinine 1.16 H, Estim Creat Clear Calc 93.04, Est GFR (MDRD) Af Amer 66, Est GFR (MDRD) Non-Af 55 L, BUN/Creatinine Ratio 21.6 H, Glucose 321 H, Calcium 8.7, Phosphorus 4.6, Magnesium 1.8, Total Bilirubin 0.50, AST 18, ALT 26, Alkaline Phosphatase 58, Total Protein 5.9 L, Albumin 2.5 L, Globulin 3.4, Albumin/Globulin Ratio 0.7 L Micro: Microbiology 09/17/24 14:10 Urine, Clean Catch Urine Culture - Preliminary Mixed Gram Positive Organisms Cardiology Labs/Tests 09/17/24 12:37: WBC Cancelled, Corrected WBC Cancelled, RBC Cancelled, Hgb Cancelled, Hct Cancelled, MCV Cancelled, MCH Cancelled, MCHC Cancelled, Plt Count Cancelled, MPV Cancelled, Immature Gran % (Auto) Cancelled, Neut % (Auto) Cancelled, Lymph % (Auto) Cancelled, [place] % (Auto) Cancelled, Eos % (Auto) Cancelled, Baso % (Auto) Cancelled, Absolute Neuts (auto) Cancelled, Total Counted Cancelled, Neutrophils % (Manual) Cancelled, Band Neutrophils % Cancelled, Lymphocytes % (Manual) Cancelled, Monocytes % (Manual) Cancelled, Eosinophils % (Manual) Cancelled, Basophils % (Manual) Cancelled, Metamyelocytes % Cancelled, Myelocytes % Cancelled, Promyelocytes % Cancelled, Blast Cells % Cancelled, Plasma Cell % (Manual) Cancelled, Other Cells % Cancelled, Nucleated RBC % Cancelled, Sodium 132 L, Potassium 4.4, Chloride 100, Carbon Dioxide 24.0, Anion Gap 8, BUN 20 H, Creatinine 0.91, Est GFR (MDRD) Af Amer 88, Est GFR (MDRD) Non-Af 72, BUN/Creatinine Ratio 22.0 H, Glucose 309 H, Calcium 8.9, B-Natriuretic Peptide Cancelled 09/17/24 14:14: Urine Color Yellow, Urine Clarity Sl. Cloudy, Urine pH 6.0, Ur Specific [place] 1.020, Urine Protein 100 H, Urine Glucose (UA) 1000 H, Urine Ketones Negative, Urine Occult Blood 250 H, Urine Nitrite Negative, Urine Bilirubin Negative, Urine Urobilinogen Normal, Ur Leukocyte Esterase 500 H, Urine RBC 5-10 SEEN, Urine WBC 10-25 SEEN 09/17/24 14:15: WBC 8.9, RBC 4.30, Hgb 11.5 L, Hct 34.3 L, MCV 79.8 L, MCH 26.7 L, MCHC 33.5, Plt Count 176, MPV 12.3 H, Immature Gran % (Auto) 0.800, Neut % (Auto) 71.4 H, Lymph % (Auto) 17.3 L, [place] % (Auto) 6.3, Eos % (Auto) 3.6, Baso % (Auto) 0.6, Absolute Neuts (auto) 6.4, Nucleated RBC % 0, B-Natriuretic Peptide 141.0 H 09/18/24 06:49: WBC 7.4, RBC 4.09 L, Hgb 10.7 L, Hct 33.2 L, MCV 81.2, MCH 26.2 L, MCHC 32.2, Plt Count 158, MPV 11.9, Immature Gran % (Auto) 0.700, Neut % (Auto) 70.2 H, Lymph % (Auto) 18.5 L, [place] % (Auto) 7.1, Eos % (Auto) 3.0, Baso % (Auto) 0.5, Absolute Neuts (auto) 5.2, Nucleated RBC % 0, Sodium 134 L, Potassium 3.8, Chloride 100, Carbon Dioxide 26.0, Anion Gap 8, BUN 25 H, Creatinine 1.16 H, Est GFR (MDRD) Af Amer 66, Est GFR (MDRD) Non-Af 55 L, BUN/Creatinine Ratio 21.6 H, Glucose 321 H, Calcium 8.7, Phosphorus 4.6, Magnesium 1.8, Total Bilirubin 0.50 Rhythm: EKG: ECHO: Stress Test: Cardiac Cath: PCI: CT Surgery: Holter monitor: EPS: PPM: CXR: Chest CT Scan: Radiography Diagnostic Testing: Radiology Impression Chest X-Ray 09/17/24 13:45 IMPRESSION: Increased linear markings at the lung bases which are new. Follow-up recommended. Reading Location: [place] [id number] Echocardiogram 09/17/24 17:27 Interpretation Summary The estimated ejection fraction is 55-60 %. No evidence for diastolic dysfunction. Mild (1+) mitral valve insufficiency. Ordering Physician: Faith Scott Performed By: Jaquelin Argueta RDCS
[2024-09-18 12:23] LABS: Bedside Glucose 319 mg/dL (74-106)
[2024-09-18 12:49] LABS: Internal QC Validated? YES +Cl - CLEAR BKGD; Pregnancy, Urine Negative Negative
--- NOTE | 2024-09-18 12:51 | NURSING ---
Patient refusing to allow staff to prep for cardiac cath. Dr. Tinsley notified. Patient states that she has a follow up appointment already scheduled for her PCP and lead retail sales associate with [facility].
[2024-09-18] MEDS: Pregabalin 75 MG Capsule 150 MG PO (14:18)
--- NOTE | 2024-09-18 14:33 | CHAPLAIN ---
Type of Pastoral Visit _x__ Initial Visit ___ Follow-up Visit ___ On-call Visit ___ General Patient Visit ___ Spiritual Assessment ___ Family Conference ___ Bereavement ___ Rapid Response ___ Code Blue ___ Other (describe below) Pastoral Care Referral From _x__ Patient ___ Family ___ Nurse ___ Physician ___ Appraisal Coordinator ___ Lead Die Molder ___ Other (describe below) Sacrament/Intervention _x__ Active listening ___ Anointing ___ Methodist ___ Bereavement ___ Communion ___ Hannah exploration ___ ___ Life review _x__ Prayer ___ Reconciliation ___ Sacrament of Sick _x__ Supportive presence ___ Wedding ___ Other (describe below) Pastoral Comments patient was admitted here previously last fall; SO is with her again today; pt has had some tests done but has refused others and wants to go home soon; pt says that she just needs a prayer and also asks for another person that has health needs
--- NOTE | 2024-09-18 14:55 | CASEMGMT ---
Met with patient to complete THOMPSON form. THOMPSON form explained to patient who voiced understanding and signed form. Original form placed in pt?s chart and copy provided to patient. Tawnya Olmedo, Discharge Planning Asst
--- NOTE | 2024-09-18 15:57 | DS.PCM_ITS ---
Providers Date of Admission: 09/17/24 Primary Care Physician: Nelly Michael [facility], [employer] Reason For Visit: SOB WITH EXERTION Diagnosis Discharge Diagnosis (1) UTI (urinary tract infection): Status: Acute Code(s): N39.0 - Urinary tract infection, site not specified (2) Dyspnea on exertion: Status: Acute Code(s): R06.09 - Other forms of dyspnea (3) Chest pain: Status: Acute Code(s): R07.9 - Chest pain, unspecified Qualifiers: Chest pain type: unspecified Qualified Code(s): R07.9 - Chest pain, unspecified (4) Elevated brain natriuretic peptide (BNP) level: Status: Acute Code(s): R79.89 - Other specified abnormal findings of blood chemistry Plan Acute HFpEF * echo ordered * on IV furosemide + carvedilol 6.25 BID + losartan 50 BID. Change furosemide to PO. Fluid restrict daily weight. * weight is up 18 kg since July Chest pain * stress test ordered. * Noted that EF was 47% on stress test, cardiology recommending [facility], patient declined. Follow up with cardiology as outpt. * start ASA and HIS. OM * culture positive for MRSA and anaerobic cocci * started on linezolid and cipro ear gtt * follow up with ENT Recent UTI: * UA here benign, but was already on PO ciprofloxacin, which has been continued DM2 * a1c 10.8 from June 09 * at home takes degludec 40 QHS and lispro with meals. Glucose has been uncontrolled. Will change basal insulin to 30 BID. DVT prophylaxis -Lovenox 40 twice daily CODE STATUS -Full code Medications at Discharge Home Medications biotin 1 mg capsule 1 mg PO DAILY 01/06/22 lactobacillus combination no.9 4 billion cell capsule (Adult 50 Plus Probiotic) 4,000 mmu cells PO DAILY 01/06/22 flash glucose scanning reader (FreeStyle Chirag 2 [place]) #1 ea 01/30/23 flash glucose sensor (FreeStyle Chirag 2 Sensor kit) #2 ea 01/30/23 loratadine 10 mg tablet 10 mg PO DAILY allergies #90 tabs 01/30/23 metformin 500 mg tablet 1,000 mg (2 x 500 mg) PO BIDCM diabetes #90 tabs 01/30/23 omeprazole 40 mg capsule,delayed release 40 mg PO DAILY GERD #90 caps 01/30/23 insulin lispro 100 unit/mL subcutaneous pen (Humalog KwikPen (U-100) Insulin) 10 unit subcut TIDCM PRN diabetes 11/14/23 albuterol sulfate 90 mcg/actuation aerosol inhaler 2 puff inhalation Q4H PRN sob 06/08/24 pregabalin 150 mg capsule 150 mg PO TID pain 06/08/24 losartan 50 mg tablet 50 mg PO BID 08/13/24 alpha lipoic acid 200 mg capsule 200 mg PO TID 09/17/24 calcium carbonate 600 mg PO DAILY 09/17/24 cholecalciferol (vitamin D3) 10 mcg (400 unit) capsule (Vitamin D3) 10 mcg PO DAILY 09/17/24 ciprofloxacin 0.3 %-dexamethasone 0.1 % ear drops,suspension 4 drp otic (ear) BID 09/17/24 ciprofloxacin HCl 500 mg tablet 500 mg PO Q12H 09/17/24 dulaglutide 1.5 mg/0.5 mL subcutaneous pen injector (Trulicity) 1.5 mg subcut EDDY 09/17/24 ferrous sulfate 325 mg (65 mg iron) tablet (Feosol) 325 mg PO DAILY 09/17/24 lamotrigine 25 mg chewable dispersible tablet 25 mg PO DAILY 09/17/24 magnesium 1 tab PO DAILY 09/17/24 mecobalamin (vitamin B12) 1,000 mcg chewable tablet 1,000 mcg PO DAILY 09/17/24 olanzapine 5 mg-samidorphan 10 mg tablet (Lybalvi) 0.5 tab PO QHS 09/17/24 potassium gluconate 600 mg (99 mg) tablet 600 mg PO DAILY 09/17/24 prazosin 1 mg capsule 1 mg PO QHS 09/17/24 amlodipine 10 mg tablet 10 mg PO DAILY #30 tabs 09/18/24 aspirin 81 mg capsule 81 mg PO DAILY #30 caps 09/18/24 atorvastatin 80 mg tablet 80 mg PO QHS #30 tabs 09/18/24 carvedilol 6.25 mg tablet 6.25 mg PO BID #60 tabs 09/18/24 furosemide 40 mg tablet 40 mg PO BID #60 tabs 09/18/24 insulin glargine-yfgn 100 unit/mL (3 mL) subcutaneous pen 30 unit (0.3 mL) subcut BID 30 days #18 mL 09/18/24 linezolid 600 mg tablet 600 mg PO BID #14 tabs 09/18/24 Hospital Course Procedures 2-D Echocardiogram Summary of Care Provided Minutes Spent on Discharge: 40 Weight / BMI Weight Weight: 135 kg Body Mass Index (BMI) 45.2 ABG / Lab / Microbiology Data 09/18/24 06:49 09/18/24 06:49 Laboratory: Laboratory Results - last 24 hr 09/17/24 16:10: Troponin I High Sens 19 09/17/24 18:31: POC Glucose 281 H 09/17/24 19:21: Troponin I High Sens 17 09/17/24 21:00: Troponin I High Sens 15 09/17/24 22:21: POC Glucose 421 H 09/18/24 00:50: Troponin I High Sens 14 09/18/24 05:59: POC Glucose 326 H 09/18/24 06:49: WBC 7.4, RBC 4.09 L, Hgb 10.7 L, Hct 33.2 L, MCV 81.2, MCH 26.2 L, MCHC 32.2, RDW Std Deviation 39.9, RDW Coeff of Amada 13.6, Plt Count 158, MPV 11.9, Immature Gran % (Auto) 0.700, Neut % (Auto) 70.2 H, Lymph % (Auto) 18.5 L, [place] % (Auto) 7.1, Eos % (Auto) 3.0, Baso % (Auto) 0.5, Absolute Neuts (auto) 5.2, Absolute Lymphs (auto) 1.36, Nucleated RBC % 0, Sodium 134 L, Potassium 3.8, Chloride 100, Carbon Dioxide 26.0, Anion Gap 8, BUN 25 H, Creatinine 1.16 H , Estim Creat Clear Calc 93.04, Est GFR (MDRD) Af Amer 66, Est GFR (MDRD) Non-Af 55 L, BUN/Creatinine Ratio 21.6 H, Glucose 321 H, Calcium 8.7, Phosphorus 4.6, Magnesium 1.8, Total Bilirubin 0.50, AST 18, ALT 26, Alkaline Phosphatase 58, T otal Protein 5.9 L, Albumin 2.5 L, Globulin 3.4, Albumin/Globulin Ratio 0.7 L 09/18/24 11:59: POC Glucose 319 H 09/18/24 12:29: Urine Test Negative Microbiology: Microbiology 09/17/24 14:10 Urine, Clean Catch Urine Culture - Preliminary Mixed Gram Positive Organisms Radiography Diagnostic Testing: Radiology Impression Echocardiogram 09/17/24 17:27 Interpretation Summary The estimated ejection fraction is 55-60 %. No evidence for diastolic dysfunction. Mild (1+) mitral valve insufficiency. Ordering Physician: Faith Scott Performed By: Jaquelin Argueta RDCS D/C Instructions DC O2, CPAP, BIPAP Needs Home O2 Discharge instructions: No Meaningful Use Info Meaningful Use Meaningful Use Diagnoses (Choose all that apply): CHF CHF DOC/ARB ordered at discharge?: Yes Documented LVEF (%): 55 Ischemic Stroke Statin Dosing Therapy Reference: STATIN DOSE THERAPY REFERENCE: * Patients > 75 years receive moderate or high dose statin therapy. * Patients 75 years or YOUNGER should receive HIGH intensity statin dose unless contraindicated. You will be required to document reason for non-treatment if statin daily dose does not meet guidelines. HIGH DOSE STATIN THERAPY DAILY Atorvastatin > than or = to 40 mg Rosuvastatin > than or = to 20 mg Amlodipine + Atorvastatin > than or = to 2.5/40 mg Ezetimibe + Simvastatin 10/80 mg Simvastatin 80mg Discharge Plan Admission Admit Date/Time: 09/17/24 15:59 Primary Reason for Your Visit: CHF exacerbation. Attending Provider: Noel Ignacio Primary Care Provider: Nelly Michael Karl Consulting Providers: Faith Scott Instructions Patient Instructions: Heart Failure Flare Up Signs, Heart Failure Procedures, Heart Failure Make Changes Diet, Heart Failure Post Hospital, Heart Failure and Physical Activity, Heart Failure Additional Instructions / Restrictions: Follow up with ENT for your ear infection. Continue your cipro ear drops. You will also be on linezolid tablets for this. You stress test for the most part was normal, but there was a subtle irregularity. I advise you to follow up with cardiology in the future. Discharge Orders/Prescriptions Prescriptions: New carvedilol 6.25 mg Tablet 6.25 mg PO BID Qty: 60 0RF amlodipine 10 mg Tablet 10 mg PO DAILY Qty: 30 0RF insulin glargine-yfgn 100 unit/mL (3 mL) Insulin Pen 30 unit subcut BID 30 Days Qty: 18 0RF linezolid 600 mg Tablet 600 mg PO BID Qty: 14 0RF aspirin 81 mg capsule 81 mg PO DAILY Qty: 30 0RF atorvastatin 80 mg tablet 80 mg PO QHS Qty: 30 0RF furosemide 40 mg tablet 40 mg PO BID Qty: 60 0RF Continued biotin 1 mg capsule 1 mg PO DAILY Adult 50 Plus Probiotic 4 billion cell capsule 4,000 mmu cells PO DAILY (DME) FreeStyle Chirag 2 Sensor Kit See Rx Instructions .ROUTE .MEDSUPPLY Qty: 2 1RF Rx Instructions: As directed (DME) FreeStyle Chirag 2 [place] Misc See Rx Instructions .ROUTE .MEDSUPPLY Qty: 1 0RF Rx Instructions: As directed omeprazole 40 mg capsule,delayed release(DR/EC) 40 mg PO DAILY Qty: 90 0RF metformin 500 mg tablet 1,000 mg PO BIDCM Qty: 90 1RF loratadine 10 mg tablet 10 mg PO DAILY Qty: 90 0RF insulin lispro [Humalog KwikPen Insulin] 100 unit/mL insulin pen 10 unit subcut TIDCM PRN (Reason: diabetes) Rx Instructions: with meals AND NEEDED ciprofloxacin-dexamethasone 0.3-0.1 % drops,suspension 4 drp otic (ear) BID Rx Instructions: START- 09/11/24 END- 09/18/24 ciprofloxacin HCl 500 mg tablet 500 mg PO Q12H Rx Instructions: START- 09/11/24 END - 09/18/24 Trulicity 1.5 mg/0.5 mL pen injector 1.5 mg subcut EDDY lamotrigine 25 mg tablet, chewable dispersible 25 mg PO DAILY Rx Instructions: STARTED 25MG ON 09/12/24 FOR 2 WEEKS, THEN INCREASE TO 50MG FOR 2 WEEKS, THEN TO 75MG FOR 2 WEEKS, THEN 100MG THEREAFTER Lybalvi 5-10 mg tablet 0.5 tab PO QHS prazosin 1 mg capsule 1 mg PO QHS magnesium 1 tab PO DAILY Patient Comments: UNAWARE OF STRENGTH alpha lipoic acid 200 mg capsule 200 mg PO TID ferrous sulfate [Feosol] 325 mg (65 mg iron) tablet 325 mg PO DAILY potassium gluconate 600 mg (99 mg) tablet 600 mg PO DAILY calcium carbonate 600 mg calcium (1,500 mg) tablet 600 mg PO DAILY cholecalciferol (vitamin D3) [Vitamin D3] 10 mcg (400 unit) capsule 10 mcg PO DAILY mecobalamin (vitamin B12) 1,000 mcg tablet,chewable 1,000 mcg PO DAILY albuterol sulfate 90 mcg/actuation HFA aerosol inhaler 2 puff INHALATION Q4H PRN (Reason: sob) pregabalin 150 mg capsule 150 mg PO TID losartan 50 mg Tablet 50 mg PO BID Discontinued insulin degludec [Tresiba FlexTouch U-100] 100 unit/mL (3 mL) insulin pen 40 unit SUBCUT QHS furosemide 20 mg tablet 20 mg PO DAILY Patient Comments: PT HASNT STARTED YET ibuprofen 800 mg tablet 800 mg PO Q8H PRN (Reason: pain) hydrochlorothiazide 12.5 mg tablet 12.5 mg PO DAILY Referrals / Follow Up: [facility] [Provider Group] - Within 1 Month Nelly Michael, [employer] [Primary Care Provider] - Within 2 Weeks Disposition Disposition (needs filled in before D/C Order can be placed): Home, Self Care Charges/Coding Visit Charges Inpatient E&M: 86209 Disch Hosp >30min
[2024-09-18 16:40] VITALS: BP 152/93; PULSE 90; RESP 17; TEMP 36.9; O2SAT 98
== END 2024-09-18 18:00 | disposition home or self-care (01) ==
LOC: ED 15:38 → PCU 16:22
PROVIDERS: Specialist; Admitting Provider Internal Medicine; Emergency Provider Emergency Medicine; PCP Nurse Practitioner Family
DX: I11.0 Hypertensive heart disease with heart failure (principal); I50.31 Acute diastolic (congestive) heart failure; E11.42 Type 2 diabetes mellitus with diabetic polyneuropathy; Z79.4 Long term (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 of insulin; N39.0 Urinary tract infection, site not specified; R07.89 Other chest pain; Z79.84 Long term (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 of oral hypoglycemic drugs; R06.02 Shortness of breath; Z79.899 Other long term (current) drug therapy; F17.290 Nicotine dependence, other tobacco product, uncomplicated; H66.90 Otitis media, unspecified, unspecified ear; Z86.14 Personal history of Methicillin resistant Staphylococcus aureus infection; R79.89 Other specified abnormal findings of blood chemistry
CPT/HCPCS: 36415; 71046; 78452; 80048; 80053; 81001; 81025; 82962; 83735; 83880; 84100; 84484; 85025; 87086; 87088; 93005; 93017; 93306; 96374; 96375; 96376; 97802; 99221; 99285; A9500; Q9957; A4216; C8929; G0378; J1940

== ENCOUNTER → 2024-10-02 | Outpatient (CLI) | payer MEDICARE, MEDICAID, SELFPAY ==
[2024-10-02 16:49] LABS: Absolute Lymphocyte Count 2.61 X10^3/uL (0.83-4.51); Absolute Neutrophil Count 6.4 X10^3/uL (2.0-7.7); Basophil# 0.06 X10^3/uL; Basophil% 0.6 % (0-1); Eosinophil# 0.39 X10^3/uL; Eosinophils% 3.8 % (0-5); Hematocrit 35.9 % (37-47); Hemoglobin 12.1 g/dL (12.0-15.0); Lymphocyte # 2.61 X10^3/ul (0.83-4.51); Lymphocyte % 25.7 % (19-41); Mean Corp Hgb Conc 33.7 g/dL (32-36); Mean Corpuscular Hgb 26.8 pg (27.0-32.0); Mean Corpuscular Volume 79.4 fL (81-99); Mean Platelet Vol. 12.8 fl (6.2-12.0); Monocyte# 0.67 X10^3/uL; Monocyte% 6.6 % (0-10); NRBC Flagged by Analyzer 0 % (0-5); Neutrophil # 6.37 X10^3/uL (2.7-7.7); Neutrophil % 62.9 % (47-70); Platelet Count 118 K/mm3 (150-450); RBC Distribution Width CV 14.1 % (11.6-14.6); RBC Distribution Width SD 39.3 fl (35.1-43.9); Red Blood Count 4.52 M/mm3 (4.2-5.4); White Blood Count 10.1 K/mm3 (4.4-11.0)
[2024-10-02 18:05] LABS: Anion Gap 12 (5-15); BUN 29 mg/dL (4-19); BUN/Creat Ratio 31.3 RATIO (10-20); Calcium 9.3 mg/dL (7.6-11.0); Carbon Dioxide 23.1 mmol/L (22.0-29.0); Chloride 97 mmol/L (96-108); Creatinine, Serum 0.9 mg/dL (0.6-1.0); EST Glomerular Filtration Rate 79 (>60); Glucose 327 mg/dL (70-99); Potassium 4.3 mmol/L (3.3-5.1); Sodium Level 131 mmol/L (133-145)
== END | disposition home or self-care (01) ==
LOC: VSLAB 15:49
PROVIDERS: PCP Nurse Practitioner Family
DX: I50.9 Heart failure, unspecified (principal)
CPT/HCPCS: 36415; 80048; 85025

== ENCOUNTER → 2024-10-15 | Outpatient (CLI) | payer MEDICARE, MEDICAID, SELFPAY ==
[2024-10-15 12:39] LABS: Absolute Lymphocyte Count 1.42 X10^3/uL (0.83-4.51); Absolute Neutrophil Count 5.4 X10^3/uL (2.0-7.7); Basophil# 0.06 X10^3/uL; Basophil% 0.8 % (0-1); Eosinophil# 0.28 X10^3/uL; Eosinophils% 3.6 % (0-5); Hematocrit 33.8 % (37-47); Hemoglobin 11.6 g/dL (12.0-15.0); Lymphocyte # 1.42 X10^3/ul (0.83-4.51); Lymphocyte % 18.4 % (19-41); Mean Corp Hgb Conc 34.3 g/dL (32-36); Mean Corpuscular Hgb 27.7 pg (27.0-32.0); Mean Corpuscular Volume 80.7 fL (81-99); Mean Platelet Vol. 11.9 fl (6.2-12.0); Monocyte# 0.49 X10^3/uL; Monocyte% 6.4 % (0-10); NRBC Flagged by Analyzer 0 % (0-5); Neutrophil # 5.43 X10^3/uL (2.7-7.7); Neutrophil % 70.4 % (47-70); Platelet Count 166 K/mm3 (150-450); RBC Distribution Width SD 43.2 fl (35.1-43.9); Red Blood Count 4.19 M/mm3 (4.2-5.4); White Blood Count 7.7 K/mm3 (4.4-11.0)
[2024-10-15 13:12] LABS: Pro- Brain NATRIURETIC PEPTIDE 308 pg/mL (<=450)
[2024-10-15 13:27] LABS: Anion Gap 12 (5-15); BUN 29 mg/dL (4-19); BUN/Creat Ratio 24.7 RATIO (10-20); Carbon Dioxide 21.1 mmol/L (21.0-32.0); Chloride 93 mmol/L (98-108); Creatinine, Serum 1.16 mg/dL (0.70-1.20); EST Glomerular Filtration Rate 61 (>60); Glucose 611 mg/dL (70-99); Potassium 4.7 mmol/L (3.3-5.1); Sodium Level 126 mmol/L (133-145)
[2024-10-15 21:58] LABS: Hemoglobin A1c 12.6 % (<=5.6)
== END | disposition home or self-care (01) ==
LOC: VSLAB 12:17
PROVIDERS: PCP Nurse Practitioner Family
DX: I11.0 Hypertensive heart disease with heart failure (principal); I50.9 Heart failure, unspecified; E11.9 Type 2 diabetes mellitus without complications; D69.6 Thrombocytopenia, unspecified
CPT/HCPCS: 36415; 80048; 83036; 83880; 85025

== ENCOUNTER → 2024-12-02 | Outpatient (CLI) | payer MEDICARE, MEDICAID, SELFPAY ==
[2024-12-02 16:49] LABS: Absolute Neutrophil Count 5.5 X10^3/uL (2.0-7.7); Basophil% 0.7 % (0-1); Eosinophils% 3.2 % (0-5); Hematocrit 34.8 % (37-47); Lymphocyte % 21.7 % (19-41); Mean Corp Hgb Conc 34.5 g/dL (32-36); Mean Corpuscular Hgb 27.5 pg (27.0-32.0); Mean Corpuscular Volume 79.8 fL (81-99); Monocyte% 7.2 % (0-10); Neutrophil # 5.49 X10^3/uL (2.7-7.7); Neutrophil % 66.7 % (47-70); Platelet Count 232 K/mm3 (150-450); RBC Distribution Width CV 13.8 % (11.6-14.6); RBC Distribution Width SD 40.2 fl (35.1-43.9); Red Blood Count 4.36 M/mm3 (4.2-5.4); White Blood Count 8.2 K/mm3 (4.4-11.0)
[2024-12-02 16:50] LABS: Absolute Lymphocyte Count 1.78 X10^3/uL (0.83-4.51); Basophil# 0.06 X10^3/uL; Eosinophil# 0.26 X10^3/uL; Lymphocyte # 1.78 X10^3/ul (0.83-4.51); Monocyte# 0.59 X10^3/uL; NRBC Flagged by Analyzer 0 % (0-5)
[2024-12-02 18:01] LABS: Iron 49 ug/dL (50-170); Iron Binding Capacity,Total 282 ug/dL (250-450); Iron Binding Capacity,Unsat 233 ug/dL (228-428)
[2024-12-02 19:39] LABS: ALB/GLOB Ratio 1.2 RATIO (0.9-2.4); AST(SGOT) 43 U/L (<=31); Alanine Aminotransfer ALT/SGPT 69 U/L (<=34); Albumin, Serum 3.8 g/dL (3.5-5.0); Alkaline Phosphatase 134 U/L (35-104); Anion Gap 13 (5-15); BUN 24 mg/dL (4-19); BUN/Creat Ratio 20.7 RATIO (10-20); Calcium,Total 9.5 mg/dL (7.6-11.0); Carbon Dioxide 22.7 mmol/L (21.0-32.0); Chloride 92 mmol/L (98-108); Creatinine, Serum 1.15 mg/dL (0.70-1.20); EST Glomerular Filtration Rate 61 (>60); Ferritin 70 ng/mL (22-378); Globulin 3.2 g/dL (2.2-4.2); Glucose 578 mg/dL (70-99); Potassium 4.4 mmol/L (3.3-5.1); Sodium Level 128 mmol/L (133-145); Total Bilirubin 0.46 mg/dL (0.00-1.30); Vitamin B12 1102 pg/mL (180-914); Vitamin D,25 Hydroxy 13.5 ng/mL (30-100)
== END | disposition home or self-care (01) ==
LOC: VSLAB 14:20
PROVIDERS: PCP Nurse Practitioner Family
DX: D50.9 Iron deficiency anemia, unspecified (principal); E11.9 Type 2 diabetes mellitus without complications; D51.9 Vitamin B12 deficiency anemia, unspecified; E55.9 Vitamin D deficiency, unspecified
CPT/HCPCS: 36415; 80053; 82306; 82607; 82728; 83540; 83550; 85025

== ENCOUNTER 2024-12-08 20:28 | Emergency (ER) | payer MEDICARE, MEDICAID, SELFPAY ==
[2024-12-08 20:28] VITALS: BP 208/98; PULSE 98; RESP 16; TEMP 37.4; O2SAT 99; BMI 46.0
[2024-12-08 20:31] VITALS: BP 190/96; PULSE 99
[2024-12-08 21:12] VITALS: BP 184/82; PULSE 94; RESP 20; TEMP 37.4; O2SAT 97
--- NOTE | 2024-12-08 21:29 | CT_ITS ---
PROCEDURE: EXTREMITY UPPER WITH CONTRAST 12/08/2024 REASON FOR EXAM: LEFT AXILLARY ABSCESS. HISTORY OF NEC FASCIITIS TECHNIQUE: CT of the left axilla and chest wall with contrast with coronal and sagittal reformatted images CONTRAST: 94 cc Isovue 370 IV One or more dose reduction techniques were used (e.g., Automated exposure control, adjustment of the mA and/or kV according to patient size, use of iterative reconstruction technique). RADIATION DOSE SUMMARY: CTDlvol: 41.40 mGy DLP: 1471.91 mGycm COMPARISON: None available FINDINGS: At the left axilla medially along the chest wall subcutaneous soft tissues just beneath the skin surface is a peripherally enhancing low-density collection measuring 3.4 x 1.5 x 2.2 cm collection with adjacent fat stranding for example axial 66 and coronal 79 most concerning for abscess. Adjacent fat subcutaneous soft tissue stranding, edema may be inflammatory or infectious. No soft tissue gas identified. No deep fascial plane edema noted. 1.9 x 1.5 cm soft tissue nodule lateral left chest and axilla with adjacent fat stranding may represent reactive node, nonspecific and follow-up to resolution. No fracture or dislocation. Mild acromioclavicular joint osteoarthrosis. No osseous destruction or periosteal reaction identified. Visualized portions of the left lung with a couple of bandlike areas of atelectasis otherwise appear clear. CT/Extremity Upper WITH Contrast IMPRESSION: Low-density peripherally enhancing collection in the left axilla just beneath t he skin surface is most consistent with abscess as described in detail above. Subcutaneous soft tissue stranding and edema without soft tissue gas or fascial plane edema identified. Possible reactive left axillary lymph node as above, nonspecific and follow-up to resolution. Reading Location: [id number]
--- NOTE | 2024-12-08 21:33 | EDS_ITS ---
HPI <Dr. Pankaj Fung MD - Last Filed: 12/08/24 23:11> History of Present Illness Chief Complaint: Abscess Informant: patient Onset/Context/Timing Onset: Days Timing: Continuous Current Severity: Moderate Maximum Severity: Moderate Narrative Narrative: 39-year-old female history of MRSA, PTSD, diabetes and prior inguinal necrotizing fasciitis. Has had multiple prior abscesses. Recently she had right axillary abscess drained by Dr. Luis A Caraballo of the [facility]. Currently on antibiotics. Said she has had this abscess now for 1 week and it is getting worse. Prior similar symptoms: Yes Recent Illness/Hospitalization: No PFSH <Dr. Pankaj Fung MD - Last Filed: 12/08/24 23:11> [facility] Medical History MRSA (methicillin resistant staph aureus) culture positive Hepatosplenomegaly Tobacco abuse Obesity (BMI 30-39.9) ADHD Panic disorder Borderline personality disorder Bipolar disorder, current episode depressed, severe, without psychotic features Post traumatic stress disorder (PTSD) Necrotizing fasciitis HTN (hypertension) Type 2 diabetes mellitus Lactose intolerance in adult Craniofacial hyperhidrosis Polyneuropathy due to type 2 diabetes mellitus Obesity Open wound of vulva Hemoglobin A1c greater than 9.0% Vulvar abscess History of necrotising fasciitis Fibromyalgia Anxiety and depression History of venous thromboembolism Polycystic ovary Bipolar disorder Hydradenitis Home Medications ?Medication ?Instructions ?Recorded ?Last Taken ?Type biotin 1 mg capsule 1 mg PO DAILY supplement 10/25 Unknown History lactobacillus combination no.9 4 4,000 mmu cells PO DA TERRY supplement 01/06/22 09/16/24 History billion cell capsule (Adult 50 Plus Probiotic) flash glucose scanning reader #1 ea 01/30/23 Unknown R x (FreeStyle Chirag 2 [place]) flash glucose sensor (FreeStyle #2 ea 01/30/23 Unknown Rx Chirag 2 Sensor kit) loratadine 10 mg tablet 10 mg PO DAILY allergies #90 tabs 01/30/23 09/16/24 Rx metformin 500 mg tablet 1,000 mg (2 x 500 mg) PO BID CM 01/30/23 09/17/24 Rx diabetes #90 tabs omeprazole 40 mg capsule,delayed 40 mg PO DAILY GERD # 90 caps 01/30/23 09/16/24 Rx release insulin lispro 100 unit/mL 10 unit subcut TIDCM PRN di abetes 11/14/23 09/16/24 History subcutaneous pen (Humalog KwikPen (U-100) Insulin) albuterol sulfate 90 mcg/actuation 2 puff inhalation Q 4H PRN sob 06/08/24 Unknown History aerosol inhaler pregabalin 150 mg capsule 150 mg PO TID pain 06/08/24 09/16/24 History losartan 50 mg tablet 50 mg PO BID blood pressure 08/13/24 09/17/24 History alpha lipoic acid 200 mg capsule 200 mg PO TID supplem ent 09/17/24 09/17/24 History calcium carbonate 600 mg PO DAILY supplement 0 09/17/24 09/16/24 History cholecalciferol (vitamin D3) 10 10 mcg PO DAILY vitami n 09/17/24 09/16/24 History mcg (400 unit) capsule (Vitamin D3) ciprofloxacin 0.3 %-dexamethasone 4 drp otic (ear) BID infection 09/17/24 09/16/24 History 0.1 % ear drops,suspension ciprofloxacin HCl 500 mg tablet 500 mg PO Q12H infecti on 09/17/24 09/17/24 History dulaglutide 1.5 mg/0.5 mL 1.5 mg subcut EDDY diabetes 09/14/24 History subcutaneous pen injector (Trulicity) ferrous sulfate 325 mg (65 mg 325 mg PO DAILY suppleme nt 09/17/24 09/16/24 History iron) tablet (Feosol) lamotrigine 25 mg chewable 25 mg PO DAILY seizures 07/3009/16/24 History dispersible tablet magnesium 1 tab PO DAILY supplement 09/16/24 History mecobalamin (vitamin B12) 1,000 1,000 mcg PO DAILY vit ashton 09/17/24 09/16/24 History mcg chewable tablet olanzapine 5 mg-samidorphan 10 mg 0.5 tab PO QHS menta l health 09/17/24 09/16/24 History tablet (Lybalvi) potassium gluconate 600 mg (99 mg) 600 mg PO DAILY sup plement 09/17/24 09/16/24 History tablet prazosin 1 mg capsule 1 mg PO QHS blood pressure 0 09/17/24 09/16/24 History amlodipine 10 mg tablet 10 mg PO DAILY #30 tabs 09/06 10/28 Unknown Rx aspirin 81 mg capsule 81 mg PO DAILY #30 caps 09/06 10/28 Unknown Rx atorvastatin 80 mg tablet 80 mg PO QHS #30 tabs Unknown Rx furosemide 40 mg tablet 40 mg PO BID #60 tabs Unknown Rx insulin glargine-yfgn 100 unit/mL 30 unit (0.3 mL) sub cut BID 30 09/18/24 Unknown Rx (3 mL) subcutaneous pen days #18 mL linezolid 600 mg tablet 600 mg PO BID #14 tabs 09/18 Unknown Rx carvedilol 6.25 mg tablet 12.5 mg PO BID 12/08/24 Unkn own History clindamycin HCl 300 mg capsule 300 mg PO TID 10 days # 30 caps 12/08/24 Unknown Rx oxycodone-acetaminophen 5 mg-325 1 tab PO Q8H PRN pain 3 days #10 12/08/24 Unknown Rx mg tablet (Percocet) tabs Allergy/AdvReac Type Severity Reaction Status Date / Time doxycycline Allergy Severe rash Verified 12/08/24 20:29 amoxicillin (Amoxicillin) Allergy Unknown Verified 12/08/24 20:29 asenapine maleate (From Allergy Unknown Verified 12/08/24 20:29 Saphris) cephalexin AdvReac Intermediate upset Verified 12/08/24 20:29 stomach sulfamethoxazole (From AdvReac Upset Verified 12/08/24 20:29 Bactrim) Stomach trimethoprim (From Bactrim) AdvReac Upset Verified 12/08/24 20:29 Stomach Family History Mother Hypertension Brain aneurysm Father Diabetes Hypertension Grandmother Cancer liver throat kidney Diabetes Hypertension Heart disease CVA (cerebral vascular accident) Breast cancer Grandfather Kidney disease Hypertension CVA (cerebral vascular accident) Surgical History H/O lateral meniscus repair of left knee Social History household members: spouse Smoking Status: Current every day smoker tobacco type: e-cigarettes alcohol intake: never substance use type: does not use caffeine: Yes frequency: 5-6 times per week seatbelt use: always do you feel safe at home: Yes additional social history: Jonathan- Unemployed Patient is on disability ROS <Dr. Pankaj Fung MD - Last Filed: 12/08/24 23:11> ROS ED ROS Narrative Denies recent illness. Left axillary pain secondary to suspected abscess. Denies fever or chills. Constitutional Constitutional ED: Denies chills or fever(s) Eyes Eyes: Denies blurry vision ENT ENT ED: Denies ear pain Cardiovascular Cardiovascular: Denies chest pain Respiratory/Chest Respiratory/Chest: Denies cough or dyspnea Gastrointestinal Gastrointestinal: Denies abdominal pain Genitourinary Genitourinary ED: Denies dysuria Musculoskeletal Musculoskeletal: Denies arthralgias Integumentary Reports abscess Neurologic Neurologic: Denies headache(s) Endocrine Endocrinology: Denies cold intolerance Hematologic/Lymphatic Hematologic/Lymphatic: Reports none Allergic/Immunologic Allergic/Immunologic ED: Denies mouth swelling, tongue swelling or urticaria EXAM <Dr. Pankaj Fung MD - Last Filed: 12/08/24 23:11> Physical Exam Narrative Exam Narrative: 39-year-old female vital signs are stable temperature is 99.4. She does not look septic or toxic. Complaining of pain in her left axilla. H EENT exam pupils round reactive light. Mytrex members. Neck nontender. Lungs clear equal symmetrical. Heart regular rhythm rate about 95 no murmur. Chest wall and ribs nontender. Abdomen soft nontender. Patient moving all 4 extremities. She has bandages in her right armpit from a recent I&D. Her left axillary area is swollen and tender. Mild redness. Consistent with most likely an abscess. She has normal range of motion of her shoulder. There is no signs of septic joint. Normal sinter feeder strength bilaterally. Lower extremities are nontender. Normal range of motion. Neurologically she is awake and alert. Const Vital Signs: 12/08/24 20:28 12/08/24 20:31 12/08/24 21:12 Temperature 99.4 F H 99.4 F H Temperature Source Oral Oral Pulse Rate 98 99 94 Respiratory Rate 16 20 H Blood Pressure 208/98 H 190/96 H 184/82 H Blood Pressure Mean 134 127 116 Pulse Ox 99 97 Oxygen Delivery Method Room Air Nasal Cannula 12/08/24 22:00 12/08/24 23:00 05/06/25 00:00 Temperature 98.7 F 98.4 F 99.3 F H Temperature Source Oral Oral Oral Pulse Rate 92 94 97 Respiratory Rate 16 18 16 Blood Pressure 154/79 H 140/81 H 168/74 H Blood Pressure Mean 104 100 105 Pulse Ox 97 96 96 Oxygen Delivery Method Room Air Room Air Room Air 12/09/24 02:00 12/09/24 02:24 Temperature 98.0 F Temperature Source Pulse Rate 106 H 98 Respiratory Rate 18 18 Blood Pressure 132/68 H 132/68 H Blood Pressure Mean 89 89 Pulse Ox 94 96 Oxygen Delivery Method Room Air Positive well nourished, well developed and obese; Negative for cachectic, contractures or unkempt General Appearance ED: well developed and NAD; Negative for unkempt, cachectic, contractures, cyanotic or diaphoretic Nutritional Appearance: obese; Negative for cachectic HEENT Reports moist mucous membranes Negative for trauma or tenderness Eyes PERRL and EOMs intact bilaterally Neck no lymphadenopathy, supple and no JVD Chest Wall inspection of chest normal and palpation of chest normal Resp normal respiratory effort and clear to auscultation bilaterally Cardio regular rate, regular rhythm, S1 normal heart sound, S2 normal heart sound and no murmurs GI normal to inspection, nondistended, normoactive bowel sounds, non-tender, non- distended and no masses Palpation: soft; Negative for tender or guarding Back/Spine no CVA tenderness Extremity normal to inspection Extremity Narrative: Except right axilla status post I&D with bandages. Moi axilla tender, swollen mild redness consistent with an axillary abscess. Due to his body habitus it is difficult to locate the exact position of the abscess and the size. It does appear to tract along her upper lateral chest wall. General Extremety ED: Yes tenderness Neuro oriented x3 and CN's II-XII intact bilaterally Sensorium / Orientation: alert; Negative for orientation impaired, lethargic or stuporous Motor Exam: strength 5/5 throughout Psych mental status grossly normal Appearance: Negative for unkempt Attitude: No agitated Mood & Affect: Negative for depressed, anxious or tearful Skin No no rashes or lesions noted, no wounds and skin turgor normal Skin Narrative: Mild redness left axilla. Rashes: rashes noted <Dr. Rogelio Stewart, DO - Last Filed: 12/09/24 03:22> Physical Exam Const Vital Signs: 12/08/24 20:28 12/08/24 20:31 12/08/24 21:12 Temperature 99.4 F H 99.4 F H Temperature Source Oral Oral Pulse Rate 98 99 94 Respiratory Rate 16 20 H Blood Pressure 208/98 H 190/96 H 184/82 H Blood Pressure Mean 134 127 116 Pulse Ox 99 97 Oxygen Delivery Method Room Air Nasal Cannula 12/08/24 22:00 12/08/24 23:00 12/09/24 00:00 Temperature 98.7 F 98.4 F 99.3 F H Temperature Source Oral Oral Oral Pulse Rate 92 94 97 Respiratory Rate 16 18 16 Blood Pressure 154/79 H 140/81 H 168/74 H Blood Pressure Mean 104 100 105 Pulse Ox 97 96 96 Oxygen Delivery Method Room Air Room Air Room Air 12/09/24 02:00 12/09/24 02:24 Temperature 98.0 F Temperature Source Pulse Rate 106 H 98 Respiratory Rate 18 18 Blood Pressure 132/68 H 132/68 H Blood Pressure Mean 89 89 Pulse Ox 94 96 Oxygen Delivery Method Room Air [facility] <Dr. Pankaj Fung MD - Last Filed: 12/08/24 23:11> [facility] Narrative Medical decision making narrative: 39-year-old female diabetic has what suspect to be a left axillary abscess. CT be obtained for locating this and also the size of the abscess. Screening labs. She has had a history of necrotizing fasciitis. Most likely this is not. She will be given morphine for pain and Zofran. Glucose 630. The patient is elevated blood sugar she will be given subcu insulin. She told me at home she would give herself 35 or so units. She will be given 30 units subcu of Humalog. A liter normal saline. Will recheck her blood sugar an hour after we give her the insulin. She has had elevated blood sugars like this multiple times in the past. Procedure: Left axillary abscess. Area was cleaned with Shur-Clens. Local anesthetized with lidocaine. Once proper intake was obtained I made a 1 to 2 inch incision. Expressed 5 of pus and fluid. Patient actually tolerated it well. I broke up any loculations and probed the wound with forceps. Irrigated the wound with saline. Then I placed several inches of 1 inch packing gauze. Patient was instructed on wound care take the packing out in 4 days. Father general surgeon Dr. Luis A Caraballo. I have he or the physician on-call for him on page. To ensure close follow-up. Patient be discharged to home on clindamycin 3 times a day for 10 days. Limited Percocet for pain. And follow-up with her general surgeon. I spoke to her surgeon Dr. Luis A Caraballo at 11:10 PM prior to discharge. He will follow her up. History & Record Review Discussion w/independent historian: Patient Additional record(s) reviewed:: Prior inpatient record, Prior outpatient record, Prior ED visit and Prior labs Lab Data Attestation: I reviewed the patient's lab results. Lab results narrative: CBC shows a white count of 7. H&H 10.9 and 31.8. Platelets 167. Chemistry shows sodium 127. Anion gap of 8. BUN and creatinine are 29 and 1.21. Labs: Laboratory Results - last 24 hr 12/08/24 12/08/24 12/08/24 21:31 21:44 22:53 WBC 7.4 RBC 3.87 L Hgb 10.9 L Hct 31.8 L MCV 82.2 MCH 28.2 MCHC 34.3 RDW Std Deviation 42.0 RDW Coeff of Amada 14.1 Plt Count 167 MPV 12.4 H Immature Gran % (Auto) 0.300 Neut % (Auto) 67.9 Lymph % (Auto) 19.5 Amelia % (Auto) 8.1 Eos % (Auto) 3.5 Baso % (Auto) 0.7 Absolute Neuts (auto) 5.1 Absolute Lymphs (auto) 1.45 Nucleated RBC % 0 Sodium 127 L Potassium 4.7 Chloride 95 L Carbon Dioxide 23.6 Anion Gap 8 BUN 29 H Creatinine 1.21 H Estim Creat Clear Calc 90.10 Est GFR (MDRD) Non-Af 58 L BUN/Creatinine Ratio 23.6 H Glucose 630 H* Calcium 8.7 POC Glucose > 500 H* 472 H* 12/09/24 12/09/24 00:45 02:17 WBC RBC Hgb Hct MCV MCH MCHC RDW Std Deviation RDW Coeff of Amada Plt Count MPV Immature Gran % (Auto) Neut % (Auto) Lymph % (Auto) Amelia % (Auto) Eos % (Auto) Baso % (Auto) Absolute Neuts (auto) Absolute Lymphs (auto) Nucleated RBC % Sodium Potassium Chloride Carbon Dioxide Anion Gap BUN Creatinine Estim Creat Clear Calc Est GFR (MDRD) Non-Af BUN/Creatinine Ratio Glucose Calcium POC Glucose 464 H* 380 H Radiography Diagnostic Testing: Clinical Impression(s) from Imaging Studies Upper Extremity CT 12/08/24 21:29 IMPRESSION: Low-density peripherally enhancing collection in the left axilla just beneath the skin surface is most consistent with abscess as described in detail above. Subcutaneous soft tissue stranding and edema without soft tissue gas or fascial plane edema identified. Possible reactive left axillary lymph node as above, nonspecific and follow-up to resolution. Reading Location: [id number] <Dr. Rogelio Stewart, DO - Last Filed: 12/09/24 03:22> [facility] MDM Narrative Medical decision making narrative: 39-year-old female diabetic has what suspect to be a left axillary abscess. CT be obtained for locating this and also the size of the abscess. Screening labs. She has had a history of necrotizing fasciitis. Most likely this is not. She will be given morphine for pain and Zofran. Glucose 630. The patient is elevated blood sugar she will be given subcu insulin. She told me at home she would give herself 35 or so units. She will be given 30 units subcu of Humalog. A liter normal saline. Will recheck her blood sugar an hour after we give her the insulin. She has had elevated blood sugars like this multiple times in the past. Procedure: Left axillary abscess. Area was cleaned with Shur-Clens. Local anesthetized with lidocaine. Once proper intake was obtained I made a 1 to 2 inch incision. Expressed 5 of pus and fluid. Patient actually tolerated it well. I broke up any loculations and probed the wound with forceps. Irrigated the wound with saline. Then I placed several inches of 1 inch packing gauze. Patient was instructed on wound care take the packing out in 4 days. Father general surgeon Dr. Luis A Caraballo. I have he or the physician on-call for him on page. To ensure close follow-up. Patient be discharged to home on clindamycin 3 times a day for 10 days. Limited Percocet for pain. And follow-up with her general surgeon. I spoke to her surgeon Dr. Luis A Caraballo at 11:10 PM prior to discharge. He will follow her up. 0055: Pat. Signed out to me to follow-up on CT imaging. Discussed with radiologist abscess just under axilla there is no subcu air noted. There is some reactive lymphadenopathy. She is status post 25 units of insulin for glucose of 630 in the lab with a normal gap. Recheck glucose 90 minutes later 464. Patient stable discussed with her we will give additional 20 units for her hyperglycemia. She has an endocrinology appointment in the morning with [facility]. She is requesting pain medicines from her incision and drainage for which oxycodone ordered. 0230: Recheck glucose now after second dose of insulin. Down to 380. Discussed with patient she still trend down as medicine has not peaked. Reassured on findings. She has her endocrinology appointment 10 AM. She will keep this appointment for adjustments of medications. Antibiotics and pain medicines were sent to her pharmacy. She will follow-up with her civil division deputy sheriff in her surgeon. All questions were answered. Lab Data Labs: Laboratory Results - last 24 hr 12/08/24 12/08/24 12/08/24 21:31 21:44 22:53 WBC 7.4 RBC 3.87 L Hgb 10.9 L Hct 31.8 L MCV 82.2 MCH 28.2 MCHC 34.3 RDW Std Deviation 42.0 RDW Coeff of Amada 14.1 Plt Count 167 MPV 12.4 H Immature Gran % (Auto) 0.300 Neut % (Auto) 67.9 Lymph % (Auto) 19.5 Amelia % (Auto) 8.1 Eos % (Auto) 3.5 Baso % (Auto) 0.7 Absolute Neuts (auto) 5.1 Absolute Lymphs (auto) 1.45 Nucleated RBC % 0 Sodium 127 L Potassium 4.7 Chloride 95 L Carbon Dioxide 23.6 Anion Gap 8 BUN 29 H Creatinine 1.21 H Estim Creat Clear Calc 90.10 Est GFR (MDRD) Non-Af 58 L BUN/Creatinine Ratio 23.6 H Glucose 630 H* Calcium 8.7 POC Glucose > 500 H* 472 H* 12/09/24 12/09/24 00:45 02:17 WBC RBC Hgb Hct MCV MCH MCHC RDW Std Deviation RDW Coeff of Amada Plt Count MPV Immature Gran % (Auto) Neut % (Auto) Lymph % (Auto) Amelia % (Auto) Eos % (Auto) Baso % (Auto) Absolute Neuts (auto) Absolute Lymphs (auto) Nucleated RBC % Sodium Potassium Chloride Carbon Dioxide Anion Gap BUN Creatinine Estim Creat Clear Calc Est GFR (MDRD) Non-Af BUN/Creatinine Ratio Glucose Calcium POC Glucose 464 H* 380 H Radiography Diagnostic Testing: Clinical Impression(s) from Imaging Studies Upper Extremity CT 12/08/24 21:29 IMPRESSION: Low-density peripherally enhancing collection in the left axilla just beneath the skin surface is most consistent with abscess as described in detail above. Subcutaneous soft tissue stranding and edema without soft tissue gas or fascial plane edema identified. Possible reactive left axillary lymph node as above, nonspecific and follow-up to resolution. Reading Location: [facility] Discharge Plan Triage Chief Complaint: Abscess ED Provider: Pankaj Fung Dx/Rx/DC Orders Clinical Impression: Abscess of axilla, left, History and physical examination, occupation, Hyperglycemia due to diabetes mellitus, History of necrotizing fasciitis, Encounter for incision and drainage procedure Instructions: Hidradenitis Suppurativa, ED Abscess Incision And Drainage, ED Diabetes- Overview Prescriptions: New clindamycin HCl 300 mg capsule 300 mg PO TID 10 Days Qty: 30 0RF oxycodone-acetaminophen [Percocet] 5-325 mg tablet 1 tab PO Q8H PRN (Reason: pain) 3 Days Qty: 10 0RF No Action biotin 1 mg capsule 1 mg PO DAILY Adult 50 Plus Probiotic 4 billion cell capsule 4,000 mmu cells PO DAILY (DME) FreeStyle Chirag 2 Sensor Kit See Rx Instructions .ROUTE .MEDSUPPLY Qty: 2 1RF Rx Instructions: As directed (DME) FreeStyle Chirag 2 [place] Misc See Rx Instructions .ROUTE .MEDSUPPLY Qty: 1 0RF Rx Instructions: As directed omeprazole 40 mg capsule,delayed release(DR/EC) 40 mg PO DAILY Qty: 90 0RF metformin 500 mg tablet 1,000 mg PO BIDCM Qty: 90 1RF loratadine 10 mg tablet 10 mg PO DAILY Qty: 90 0RF insulin lispro [Humalog KwikPen Insulin] 100 unit/mL insulin pen 10 unit subcut TIDCM PRN (Reason: diabetes) Rx Instructions: with meals AND NEEDED ciprofloxacin-dexamethasone 0.3-0.1 % drops,suspension 4 drp otic (ear) BID Rx Instructions: START- 09/11/24 END- 09/18/24 ciprofloxacin HCl 500 mg tablet 500 mg PO Q12H Rx Instructions: START- 09/11/24 END - 09/18/24 Trulicity 1.5 mg/0.5 mL pen injector 1.5 mg subcut EDDY lamotrigine 25 mg tablet, chewable dispersible 25 mg PO DAILY Rx Instructions: STARTED 25MG ON 09/12/24 FOR 2 WEEKS, THEN INCREASE TO 50MG FOR 2 WEEKS, THEN TO 75MG FOR 2 WEEKS, THEN 100MG THEREAFTER Lybalvi 5-10 mg tablet 0.5 tab PO QHS prazosin 1 mg capsule 1 mg PO QHS magnesium 1 tab PO DAILY Patient Comments: UNAWARE OF STRENGTH alpha lipoic acid 200 mg capsule 200 mg PO TID ferrous sulfate [Feosol] 325 mg (65 mg iron) tablet 325 mg PO DAILY potassium gluconate 600 mg (99 mg) tablet 600 mg PO DAILY calcium carbonate 600 mg calcium (1,500 mg) tablet 600 mg PO DAILY cholecalciferol (vitamin D3) [Vitamin D3] 10 mcg (400 unit) capsule 10 mcg PO DAILY mecobalamin (vitamin B12) 1,000 mcg tablet,chewable 1,000 mcg PO DAILY amlodipine 10 mg Tablet 10 mg PO DAILY Qty: 30 0RF insulin glargine-yfgn 100 unit/mL (3 mL) Insulin Pen 30 unit subcut BID 30 Days Qty: 18 0RF linezolid 600 mg Tablet 600 mg PO BID Qty: 14 0RF aspirin 81 mg capsule 81 mg PO DAILY Qty: 30 0RF atorvastatin 80 mg tablet 80 mg PO QHS Qty: 30 0RF furosemide 40 mg tablet 40 mg PO BID Qty: 60 0RF albuterol sulfate 90 mcg/actuation HFA aerosol inhaler 2 puff INHALATION Q4H PRN (Reason: sob) pregabalin 150 mg capsule 150 mg PO TID losartan 50 mg Tablet 50 mg PO BID carvedilol 6.25 mg Tablet 12.5 mg PO BID Primary Care Provider: Nelly [facility] Referrals: Jun Caraballo MD [Non-Staff] - As soon as possible (Because office on [address] tell them that you had another abscess drained and you need follow-up to have it reevaluated.) Nelly [facility], [employer] [Primary Care Provider] - Activity Restrictions/Additional Instructions: Warm compresses or warm shower hitting the area. Motrin and Tylenol for pain. Percocet for more severe pain. Pull the packing out in 3 to 4 days. If it falls out leave it out. This helps the wound stay open and continue to drain. Call and follow-up with Dr. Caraballo. Watch your blood sugars closely. You were given total 45 units of short acting insulin glucose down to 380 on recheck. She is still trending down with medications given. Follow-up with your doctor as scheduled this morning. Check your blood sugar tonight before you go to bed. Also check it first thing in the morning. The antibiotic clindamycin 3 times a day for the next 10 days. If you are feeling worse return. Otherwise follow-up with Dr. Caraballo Print Language: Khmer Disposition Disposition: Home, Self Care Discharge Date/Time: 12/09/24 02:41
[2024-12-08] MEDS: Ondansetron 4 MG/2 ML Vial IV (21:49)
[2024-12-08 21:50] LABS: Absolute Lymphocyte Count 1.45 X10^3/uL (0.83-4.51); Absolute Neutrophil Count 5.1 X10^3/uL (2.0-7.7); Basophil# 0.05 X10^3/uL; Basophil% 0.7 % (0-1); Eosinophil# 0.26 X10^3/uL; Eosinophils% 3.5 % (0-5); Hematocrit 31.8 % (37-47); Hemoglobin 10.9 g/dL (12.0-15.0); Lymphocyte # 1.45 X10^3/ul (0.83-4.51); Lymphocyte % 19.5 % (19-41); Mean Corp Hgb Conc 34.3 g/dL (32-36); Mean Corpuscular Hgb 28.2 pg (27.0-32.0); Mean Corpuscular Volume 82.2 fL (81-99); Mean Platelet Vol. 12.4 fl (6.2-12.0); Monocyte% 8.1 % (0-10); NRBC Flagged by Analyzer 0 % (0-5); Neutrophil # 5.05 X10^3/uL (2.7-7.7); Neutrophil % 67.9 % (47-70); Platelet Count 167 K/mm3 (150-450); RBC Distribution Width CV 14.1 % (11.6-14.6); Red Blood Count 3.87 M/mm3 (4.2-5.4); White Blood Count 7.4 K/mm3 (4.4-11.0)
[2024-12-08 21:50] LABS: Bedside Glucose > 500 mg/dL (74-106)
[2024-12-08] MEDS: morphine 8 MG/ML Syringe IV (21:52)
[2024-12-08 22:00] VITALS: BP 154/79; PULSE 92; RESP 16; TEMP 37.1; O2SAT 97
[2024-12-08 22:41] LABS: Anion Gap 8 (5-15); BUN 29 mg/dL (4-19); BUN/Creat Ratio 23.6 RATIO (10-20); Calcium,Total 8.7 mg/dL (7.6-11.0); Carbon Dioxide 23.6 mmol/L (21.0-32.0); Chloride 95 mmol/L (98-108); Creatinine, Serum 1.21 mg/dL (0.70-1.20); EST Glomerular Filtration Rate 58 (>60); Glucose 630 mg/dL (70-99); Potassium 4.7 mmol/L (3.3-5.1); Sodium Level 127 mmol/L (133-145)
[2024-12-08] MEDS: Lidocaine 1% (20 ml mdv) 20 ML Vial 10 ML INFILT (22:55)
[2024-12-08 23:00] VITALS: BP 140/81; PULSE 94; RESP 18; TEMP 36.9; O2SAT 96
[2024-12-08] MEDS: Clindamycin HCl 150 MG Capsule 300 MG PO (23:03)
[2024-12-08] MEDS: Insulin Lispro 100 UNIT/ML INSULN.PEN 30 UNIT SC (23:04)
[2024-12-08] MEDS: 0.9% Normal Saline (1000mL) 1,000 ML 999 ML IV (23:04)
[2024-12-08 23:12] LABS: Bedside Glucose 472 mg/dL (74-106)
[2024-12-09] VITALS: BP 168/74; PULSE 97; RESP 16; TEMP 37.4; O2SAT 96
[2024-12-09 01:03] LABS: Bedside Glucose 464 mg/dL (74-106)
[2024-12-09] MEDS: Insulin Lispro 100 UNIT/ML INSULN.PEN 20 UNIT SC (01:11)
[2024-12-09] MEDS: oxyCODONE 5 MG Tablet 10 MG PO (01:11)
[2024-12-09 02:00] VITALS: BP 132/68; PULSE 106; RESP 18; O2SAT 94
[2024-12-09 02:24] VITALS: BP 132/68; PULSE 98; RESP 18; TEMP 36.7; O2SAT 96
[2024-12-09 02:35] LABS: Bedside Glucose 380 mg/dL (74-106)
== END 2024-12-09 02:41 | disposition home or self-care (01) ==
PROVIDERS: Emergency Provider Emergency Medicine; PCP Nurse Practitioner Family; Visit Provider Emergency Medicine
DX: L02.412 Cutaneous abscess of left axilla (principal); E11.65 Type 2 diabetes mellitus with hyperglycemia; E11.42 Type 2 diabetes mellitus with diabetic polyneuropathy; Z79.4 Long term (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 of insulin; I10 Essential (primary) hypertension; F17.290 Nicotine dependence, other tobacco product, uncomplicated; Z79.84 Long term (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 of oral hypoglycemic drugs; Z79.85 Long-term (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 of injectable non-insulin antidiabetic drugs; Z79.899 Other long term (current) drug therapy; Z86.14 Personal history of Methicillin resistant Staphylococcus aureus infection
CPT/HCPCS: 10060; 73201; 80048; 82962; 85025; Q9967; A4216; J2405

== ENCOUNTER 2024-12-09 21:25 | Inpatient (IN) | payer MEDICARE, MEDICAID, SELFPAY ==
[2024-12-09 21:25] VITALS: BP 213/91; PULSE 100; RESP 20; TEMP 37.7; O2SAT 98; BMI 45.3
[2024-12-09 21:28] VITALS: BP 213/91; PULSE 100; RESP 20; TEMP 37.7; O2SAT 100
--- NOTE | 2024-12-09 21:37 | EX.ED.DYSGE1 ---
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 Prior history of necrotizing fasciitis. History of insulin-dependent diabetes with poorly controlled blood sugars, bipolar and PTSD. Patient recently had incision and drainage of her right axillary abscess. She presented to the ER last night here we did labs CAT scan to her left axilla and drained a subcu abscess. Patient was doing well and was discharged home. She was started on clindamycin 4 times a day. Patient states late last night after she left the emergency department today she has developed fevers as high as 101.5. With nausea vomiting. Her sugars have been over 600. She actually saw her certified alcohol and drug counselor today. Denies any worsening pain from the abscess site in the left axilla. 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 Obesity Open wound of vulva Hemoglobin A1c greater than 9.0% Vulvar abscess History of necrotising fasciitis Fibromyalgia Anxiety and depression History of venous thromboembolism Polycystic ovary Bipolar disorder Hydradenitis Medical History no medical history Home Medications ?Medication ?Instructions ?Recorded ?Last Taken ?Type biotin 1 mg capsule 1 mg PO DAILY supplement 01/06/22 Unknown History lactobacillus combination no.9 4 4,000 mmu cells PO DAILY supplement 01/06/22 09/16/24 History billion cell capsule (Adult 50 Plus Probiotic) flash glucose scanning reader #1 ea 01/30/23 Unknown Rx (FreeStyle Chirag 2 Wilson) flash glucose sensor (FreeStyle #2 ea 01/30/23 Unknown Rx Chirag 2 Sensor kit) loratadine 10 mg tablet 10 mg PO DAILY allergies #90 tabs 01/30/23 09/16/24 Rx metformin 500 mg tablet 1,000 mg (2 x 500 mg) PO BIDCM 01/30/23 09/17/24 Rx diabetes #90 tabs omeprazole 40 mg capsule,delayed 40 mg PO DAILY GERD #90 caps 01/30/23 09/16/24 Rx release insulin lispro 100 unit/mL 10 unit subcut TIDCM PRN diabetes 11/14/23 09/16/24 History subcutaneous pen (Humalog KwikPen (U-100) Insulin) albuterol sulfate 90 mcg/actuation 2 puff inhalation Q4H PRN sob 06/08/24 Unknown History aerosol inhaler pregabalin 150 mg capsule 150 mg PO TID pain 06/08/24 09/16/24 History losartan 50 mg tablet 50 mg PO BID blood pressure 08/13/24 09/17/24 History alpha lipoic acid 200 mg capsule 200 mg PO TID supplement 09/17/24 09/17/24 History calcium carbonate 600 mg PO DAILY supplement 09/17/24 09/16/24 History cholecalciferol (vitamin D3) 10 10 mcg PO DAILY vitamin 09/17/24 09/16/24 History mcg (400 unit) capsule (Vitamin D3) ciprofloxacin 0.3 %-dexamethasone 4 drp otic (ear) BID infection 09/17/24 09/16/24 History 0.1 % ear drops,suspension ciprofloxacin HCl 500 mg tablet 500 mg PO Q12H infection 09/17/24 09/17/24 History dulaglutide 1.5 mg/0.5 mL 1.5 mg subcut EDDY diabetes 09/17/24 09/14/24 History subcutaneous pen injector (Trulicity) ferrous sulfate 325 mg (65 mg 325 mg PO DAILY supplement 09/17/24 09/16/24 History iron) tablet (Feosol) lamotrigine 25 mg chewable 25 mg PO DAILY seizures 09/17/24 09/16/24 History dispersible tablet magnesium 1 tab PO DAILY supplement 09/17/24 09/16/24 History mecobalamin (vitamin B12) 1,000 1,000 mcg PO DAILY vitamin 09/17/24 09/16/24 History mcg chewable tablet olanzapine 5 mg-samidorphan 10 mg 0.5 tab PO QHS mental health 09/17/24 09/16/24 History tablet (Lybalvi) potassium gluconate 600 mg (99 mg) 600 mg PO DAILY supplement 09/17/24 09/16/24 History tablet prazosin 1 mg capsule 1 mg PO QHS blood pressure 09/17/24 09/16/24 History amlodipine 10 mg tablet 10 mg PO DAILY #30 tabs 09/18/24 Unknown Rx aspirin 81 mg capsule 81 mg PO DAILY #30 caps 09/18/24 Unknown Rx atorvastatin 80 mg tablet 80 mg PO QHS #30 tabs 09/18/24 Unknown Rx furosemide 40 mg tablet 40 mg PO BID #60 tabs 09/18/24 Unknown Rx insulin glargine-yfgn 100 unit/mL 30 unit (0.3 mL) subcut BID 30 09/18/24 Unknown Rx (3 mL) subcutaneous pen days #18 mL linezolid 600 mg tablet 600 mg PO BID #14 tabs 09/18/24 Unknown Rx carvedilol 6.25 mg tablet 12.5 mg PO BID 12/08/24 Unknown History clindamycin HCl 300 mg capsule 300 mg PO TID 10 days #30 caps 12/08/24 Unknown Rx oxycodone-acetaminophen 5 mg-325 1 tab PO Q8H PRN pain 3 days #10 12/08/24 Unknown Rx mg tablet (Percocet) tabs Allergy/AdvReac Type Severity Reaction Status Date / Time doxycycline Allergy Severe rash Verified 12/09/24 21:26 amoxicillin (Amoxicillin) Allergy Unknown Verified 12/09/24 21:26 asenapine maleate (From Allergy Unknown Verified 12/09/24 21:26 Saphris) cephalexin AdvReac Intermediate upset Verified 12/09/24 21:26 stomach sulfamethoxazole (From AdvReac Upset Verified 12/09/24 21:26 Bactrim) Stomach trimethoprim (From Bactrim) AdvReac Upset Verified 12/09/24 21:26 Stomach Family History Mother Hypertension Brain aneurysm Father Diabetes Hypertension Grandmother Cancer liver throat kidney Diabetes Hypertension Heart disease CVA (cerebral vascular accident) Breast cancer Grandfather Kidney disease Hypertension CVA (cerebral vascular accident) Family History no significant family his Surgical History H/O lateral meniscus repair of left knee Surgical History no surgical history Social History household members: spouse Smoking Status: Current every day smoker tobacco type: e-cigarettes alcohol intake: never substance use type: does not use caffeine: Yes frequency: 5-6 times per week seatbelt use: always do you feel safe at home: Yes additional social history: Jonathan- Unemployed Patient is on disability ROS ROS ED ROS Narrative Fever. Nausea vomiting. Constitutional Constitutional ED: Reports chills and fever(s) Eyes Eyes: Denies blurry vision ENT ENT ED: Denies ear pain Cardiovascular Cardiovascular: Denies chest pain Gastrointestinal Gastrointestinal: Reports nausea and vomiting; Denies abdominal pain Genitourinary Genitourinary ED: Denies dysuria or hematuria Musculoskeletal Musculoskeletal: Denies arthralgias or back pain Integumentary Denies abscess Neurologic Neurologic: Denies headache(s) Psychiatric Psychiatric: Denies anxiety Endocrine Endocrinology: Denies cold intolerance Hematologic/Lymphatic Hematologic/Lymphatic: Reports none Allergic/Immunologic Allergic/Immunologic ED: Denies mouth swelling, tongue swelling or urticaria EXAM Physical Exam Narrative Exam Narrative: 39-year-old female vital signs are stable she does have a fever of 100 degrees orally. Blood pressure 213/91. Pulse ox 90% on room air no hypoxia. H EENT exam pupils round react to light. Mild dry mucous membranes. Normal speech. Neck nontender. Lungs clear to auscultation bilaterally. Heart regular rhythm rate about 100 no murmur. Chest wall and ribs nontender. Abdomen soft nontender normal bowel sounds without peritoneal signs. Moving all 4 extremities. 5 out of 5 helicopter specialist strength bilaterally. Dorsi plantarflexion intact. Both axillas both armpits have incision and drainage of abscesses. The 1 I did last night looks no worse. There is no significant cellulitis. There is no necrotic skin. No subcu air or abscess. The 1 done by the surgeon the other day on the right side appears to be healing appropriately. Back nontender. Neurologically she is awake alert. Answering questions following commands. Const Vital Signs: 12/09/24 21:25 12/09/24 21:28 12/09/24 21:30 Temperature 100 F H 100 F H Temperature Source Oral Oral Pulse Rate 100 100 Respiratory Rate 20 H 20 H Respiratory Pattern Normal Blood Pressure 213/91 H 213/91 H Blood Pressure Mean 131 131 Pulse Ox 98 100 Oxygen Delivery Method Room Air 12/09/24 22:28 Temperature 100 F H Temperature Source Oral Pulse Rate 102 H Respiratory Rate 16 Respiratory Pattern Blood Pressure 169/78 H Blood Pressure Mean 108 Pulse Ox 100 Oxygen Delivery Method Room Air Positive well nourished and well developed; Negative for cachectic, contractures or unkempt General Appearance ED: well developed and NAD; Negative for unkempt, cachectic, contractures, cyanotic, diaphoretic or pallor Nutritional Appearance: Negative for cachectic HEENT Reports dry mucous membranes Mouth ED: Yes dry mucous membranes Mouth: dry mucous membranes Eyes PERRL and EOMs intact bilaterally Neck no lymphadenopathy, supple and no JVD Chest Wall inspection of chest normal and palpation of chest normal Resp normal respiratory effort and clear to auscultation bilaterally Cardio regular rate, regular rhythm, S1 normal heart sound, S2 normal heart sound and no murmurs GI normal to inspection, nondistended, normoactive bowel sounds, non-tender, non-distended and no masses Palpation: soft; Negative for tender, guarding or rebound tenderness present Back/Spine no CVA tenderness Extremity normal to inspection Extremity Narrative: Except bilateral axilla bilateral incision and drainage of axillary abscesses. Appear to be healing appropriately. No subcu air. No significant cellulitis. No necrotic skin. Tender at both sites mildly. General Extremety ED: Yes tenderness Neuro oriented x3 and CN's II-XII intact bilaterally Sensorium / Orientation: alert; Negative for orientation impaired, lethargic or stuporous Motor Exam: strength 5/5 throughout Psych mental status grossly normal Appearance: Negative for unkempt Mood & Affect: Negative for depressed, anxious or tearful Skin no rashes or lesions noted, no wounds and skin turgor normal General Skin Exam: Negative for jaundice or pallor Lesions: No lesion noted Rashes: No rashes noted Trauma: Negative for abrasion MDM MDM MDM Narrative Medical decision making narrative: 39-year-old diabetic with h. suppurativa. Recent drainage of bilateral axillary abscesses. Last night developed a fever today nausea and vomiting and has had elevated blood sugars which she has had recently. Also recently she got the wrong insulin from her pharmacy so has not been able to take her insulin as prescribed. Patient will be given IV fluids for the nausea and vomiting. Zofran for the nausea. Screening labs to be obtained to ensure she is not in DKA. Lactic acid to be obtained. She will be given IV clindamycin. Repeat exam around 10:51 PM. Patient doing well. Given her fever and chills and her history I do feel she should be admitted to hospital for further IV antibiotics. Also due to her hyperglycemia she will be given insulin. I already spoke to the hospitalist she will be admitted. Currently there is no signs of this being necrotizing fasciitis. The left axilla did not I indeed last night looks much better. History & Record Review Discussion w/independent historian: Patient Additional record(s) reviewed:: Prior inpatient record, Prior outpatient record, Prior ED visit and Prior labs Lab Data Attestation: I reviewed the patient's lab results. Lab results narrative: White count of 5. H&H of 10 and 30. Platelets 148. Electrolytes show sodium of 128. Normal gap of 11. BUN and creatinine of 23 and 1.27. Beta hydroxybutyric acid is normal at 0.1. Lactic acid is elevated 3.5. Blood sugar 634. Labs: Laboratory Results - last 24 hr 12/09/24 12/09/24 12/09/24 21:49 21:49 22:04 WBC Cancelled Corrected WBC Cancelled RBC Cancelled Hgb Cancelled Hct Cancelled MCV Cancelled MCH Cancelled MCHC Cancelled RDW Std Deviation Cancelled RDW Coeff of Amada Cancelled Plt Count Cancelled MPV Cancelled Immature Gran % (Auto) Cancelled Neut % (Auto) Cancelled Lymph % (Auto) Cancelled Menard % (Auto) Cancelled Eos % (Auto) Cancelled Baso % (Auto) Cancelled Absolute Neuts (auto) Cancelled Absolute Lymphs (auto) Cancelled Total Counted Cancelled Neutrophils % (Manual) Cancelled Band Neutrophils % Cancelled Lymphocytes % (Manual) Cancelled Monocytes % (Manual) Cancelled Eosinophils % (Manual) Cancelled Basophils % (Manual) Cancelled Metamyelocytes % Cancelled Myelocytes % Cancelled Promyelocytes % Cancelled Blast Cells % Cancelled Plasma Cell % (Manual) Cancelled Other Cells % Cancelled Nucleated RBC % Cancelled Nucleated RBCs/100 WBC Cancelled Differential Comment Cancelled Diff Path Review Cancelled Hypersegmented Neuts Cancelled Atypical Lymphocytes Cancelled Reactive Lymphocytes Cancelled Smudge Cells Cancelled Toxic Granulation Cancelled Toxic Vacuolation Cancelled Dohle Bodies Cancelled Sara Rods Cancelled Platelet Estimate Cancelled Plt Morphology Comment Cancelled RBC Morphology Cancelled Cancelled Polychromasia Cancelled Hypochromasia Cancelled Basophilic Stippling Cancelled Anisocytosis Cancelled Microcytosis Cancelled Macrocytosis Cancelled Spherocytes Cancelled Sickle Cells Cancelled Target Cells Cancelled Tear Drop Cells Cancelled Ovalocytes Cancelled Stomatocytes Cancelled Ramon-Mullins Bodies Cancelled Travis Cells Cancelled Bite Cells Cancelled Crenated Cell Cancelled Acanthocytes (Spur) Cancelled Rouleaux Cancelled Schistocytes Cancelled Sodium 128 L Potassium 4.4 Chloride 94 L Carbon Dioxide 22.2 Anion Gap 11 BUN 23 H Creatinine 1.27 H Estim Creat Clear Calc 85.04 Est GFR (MDRD) Non-Af 54 L BUN/Creatinine Ratio 17.9 Glucose 634 H* Lactic Acid 3.5 H* Calcium 8.3 b-Hydroxybutyric mmol/L 0.1 12/09/24 22:31 WBC 5.0 Corrected WBC RBC 3.61 L Hgb 10.1 L Hct 30.2 L MCV 83.7 MCH 28.0 MCHC 33.4 RDW Std Deviation 43.1 RDW Coeff of Amada 14.1 Plt Count 148 L MPV 12.4 H Immature Gran % (Auto) 0.400 Neut % (Auto) 71.0 H Lymph % (Auto) 15.5 L Menard % (Auto) 9.7 Eos % (Auto) 2.6 Baso % (Auto) 0.8 Absolute Neuts (auto) 3.5 Absolute Lymphs (auto) 0.77 L Total Counted Neutrophils % (Manual) Band Neutrophils % Lymphocytes % (Manual) Monocytes % (Manual) Eosinophils % (Manual) Basophils % (Manual) Metamyelocytes % Myelocytes % Promyelocytes % Blast Cells % Plasma Cell % (Manual) Other Cells % Nucleated RBC % 0 Nucleated RBCs/100 WBC Differential Comment Diff Path Review Hypersegmented Neuts Atypical Lymphocytes Reactive Lymphocytes Smudge Cells Toxic Granulation Toxic Vacuolation Dohle Bodies Sara Rods Platelet Estimate Plt Morphology Comment RBC Morphology Polychromasia Hypochromasia Basophilic Stippling Anisocytosis Microcytosis Macrocytosis Spherocytes Sickle Cells Target Cells Tear Drop Cells Ovalocytes Stomatocytes Ramon-Mullins Bodies Travis Cells Bite Cells Crenated Cell Acanthocytes (Spur) Rouleaux Schistocytes Sodium Potassium Chloride Carbon Dioxide Anion Gap BUN Creatinine Estim Creat Clear Calc Est GFR (MDRD) Non-Af BUN/Creatinine Ratio Glucose Lactic Acid Calcium b-Hydroxybutyric mmol/L Discharge Plan Triage Chief Complaint: Fever ED Provider: Pankaj Fung Dx/Rx/DC Orders Prescriptions: No Action biotin 1 mg capsule 1 mg PO DAILY Adult 50 Plus Probiotic 4 billion cell capsule 4,000 mmu cells PO DAILY (DME) FreeStyle Chirag 2 Sensor Kit See Rx Instructions .ROUTE .MEDSUPPLY Qty: 2 1RF Rx Instructions: As directed (DME) FreeStyle Chirag 2 Wilson Misc See Rx Instructions .ROUTE .MEDSUPPLY Qty: 1 0RF Rx Instructions: As directed omeprazole 40 mg capsule,delayed release(DR/EC) 40 mg PO DAILY Qty: 90 0RF metformin 500 mg tablet 1,000 mg PO BIDCM Qty: 90 1RF loratadine 10 mg tablet 10 mg PO DAILY Qty: 90 0RF insulin lispro [Humalog KwikPen Insulin] 100 unit/mL insulin pen 10 unit subcut TIDCM PRN (Reason: diabetes) Rx Instructions: with meals AND NEEDED ciprofloxacin-dexamethasone 0.3-0.1 % drops,suspension 4 drp otic (ear) BID Rx Instructions: START- 09/11/24 END- 09/18/24 ciprofloxacin HCl 500 mg tablet 500 mg PO Q12H Rx Instructions: START- 09/11/24 END - 09/18/24 Trulicity 1.5 mg/0.5 mL pen injector 1.5 mg subcut EDDY lamotrigine 25 mg tablet, chewable dispersible 25 mg PO DAILY Rx Instructions: STARTED 25MG ON 09/12/24 FOR 2 WEEKS, THEN INCREASE TO 50MG FOR 2 WEEKS, THEN TO 75MG FOR 2 WEEKS, THEN 100MG THEREAFTER Lybalvi 5-10 mg tablet 0.5 tab PO QHS prazosin 1 mg capsule 1 mg PO QHS magnesium 1 tab PO DAILY Patient Comments: UNAWARE OF STRENGTH alpha lipoic acid 200 mg capsule 200 mg PO TID ferrous sulfate [Feosol] 325 mg (65 mg iron) tablet 325 mg PO DAILY potassium gluconate 600 mg (99 mg) tablet 600 mg PO DAILY calcium carbonate 600 mg calcium (1,500 mg) tablet 600 mg PO DAILY cholecalciferol (vitamin D3) [Vitamin D3] 10 mcg (400 unit) capsule 10 mcg PO DAILY mecobalamin (vitamin B12) 1,000 mcg tablet,chewable 1,000 mcg PO DAILY amlodipine 10 mg Tablet 10 mg PO DAILY Qty: 30 0RF insulin glargine-yfgn 100 unit/mL (3 mL) Insulin Pen 30 unit subcut BID 30 Days Qty: 18 0RF linezolid 600 mg Tablet 600 mg PO BID Qty: 14 0RF aspirin 81 mg capsule 81 mg PO DAILY Qty: 30 0RF atorvastatin 80 mg tablet 80 mg PO QHS Qty: 30 0RF furosemide 40 mg tablet 40 mg PO BID Qty: 60 0RF albuterol sulfate 90 mcg/actuation HFA aerosol inhaler 2 puff INHALATION Q4H PRN (Reason: sob) pregabalin 150 mg capsule 150 mg PO TID losartan 50 mg Tablet 50 mg PO BID carvedilol 6.25 mg Tablet 12.5 mg PO BID clindamycin HCl 300 mg capsule 300 mg PO TID 10 Days Qty: 30 0RF oxycodone-acetaminophen [Percocet] 5-325 mg tablet 1 tab PO Q8H PRN (Reason: pain) 3 Days Qty: 10 0RF Primary Care Provider: Nelly Michael Referrals: Nelly Michael, CLINICAL PROJECT ASSISTANT-C [Primary Care Provider] - Print Language: Kyrgyz
[2024-12-09 22:11] LABS: BETA-HYDROXYBUTYRATE 0.1 mmol/L (0.0-0.3)
[2024-12-09] MEDS: Ondansetron 4 MG/2 ML Vial IV (22:11)
[2024-12-09] MEDS: Clindamycin 900 MG/50 ML BAG 75 MG IV (22:11)
[2024-12-09] MEDS: 0.9% Normal Saline (1000mL) 1,000 ML 999 ML IV (22:11)
[2024-12-09 22:27] LABS: Anion Gap 11 (5-15); BUN 23 mg/dL (4-19); BUN/Creat Ratio 17.9 RATIO (10-20); Calcium,Total 8.3 mg/dL (7.6-11.0); Carbon Dioxide 22.2 mmol/L (21.0-32.0); Chloride 94 mmol/L (98-108); Creatinine, Serum 1.27 mg/dL (0.70-1.20); EST Glomerular Filtration Rate 54 (>60); Estimated Creatinine Clearance 85.04 ml/min (50-250); Glucose 634 mg/dL (70-99); Potassium 4.4 mmol/L (3.3-5.1); Sodium Level 128 mmol/L (133-145)
[2024-12-09 22:28] VITALS: BP 169/78; PULSE 102; RESP 16; TEMP 37.7; O2SAT 100
[2024-12-09 22:39] LABS: Lactic Acid 3.5 mmol/L (0.0-2.0)
[2024-12-09 22:45] LABS: Absolute Lymphocyte Count 0.77 X10^3/uL (0.83-4.51); Absolute Neutrophil Count 3.5 X10^3/uL (2.0-7.7); Basophil# 0.04 X10^3/uL; Basophil% 0.8 % (0-1); Eosinophil# 0.13 X10^3/uL; Eosinophils% 2.6 % (0-5); Hematocrit 30.2 % (37-47); Hemoglobin 10.1 g/dL (12.0-15.0); Lymphocyte # 0.77 X10^3/ul (0.83-4.51); Lymphocyte % 15.5 % (19-41); Mean Corp Hgb Conc 33.4 g/dL (32-36); Mean Corpuscular Volume 83.7 fL (81-99); Mean Platelet Vol. 12.4 fl (6.2-12.0); Monocyte# 0.48 X10^3/uL; Monocyte% 9.7 % (0-10); NRBC Flagged by Analyzer 0 % (0-5); Neutrophil # 3.53 X10^3/uL (2.7-7.7); Platelet Count 148 K/mm3 (150-450); RBC Distribution Width CV 14.1 % (11.6-14.6); RBC Distribution Width SD 43.1 fl (35.1-43.9); Red Blood Count 3.61 M/mm3 (4.2-5.4)
--- NOTE | 2024-12-09 22:48 | PCM.HP.STD ---
[facility] - General General Date of Admission: 12/09/24 Date of Service: 12/09/24 Chief Complaint: Fever, Chills and Hyperglycemia. HPI Yary PALM, is a 39 F with a past medical history of essential hypertension; on amlodipine, losartan, carvedilol twice daily and furosemide twice daily, hyperlipidemia; on atorvastatin, morbid obesity; with BMI of 45.3 this admission, DM-2; uncontrolled with hyperglycemia on metformin, dulaglutide, insulin glargine 30 units SQ twice daily and insulin lispro 10 units SQ 3 times daily, chronic tobacco abuse, history of VTE; currently not on anticoagulation, history of necrotizing fasciitis, history of MRSA, history of PCOS; with chronic ~5 cm hemorrhagic Left ovarian cyst, history of hidradenitis suppurativa; recent abscess drainage of her Right axilla last week, history of metabolic syndrome, history of vulvar abscess, craniofacial hyperhidrosis, fibromyalgia; on pregabalin 3 times daily, history of seizures; on lamotrigine, bipolar disorder; on olanzapine, ADHD, PTSD, history of COVID-19, history of Left lateral meniscus repair, GERD; on omeprazole, history of hepatosplenomegaly, listed allergies to Amoxil and Keflex plus recent tentative diagnosis of Multiple Sclerosis; with multiple plaques noted on brain and spinal cord and treatment yet to be initiated and most recent admission here from September 17, 2024 to September 18, 2024 for chest pain and shortness of breath complicated by otitis media and uncontrolled DM-2 with hyperglycemia who presents to [facility] ER complaining of fever, chills and hyperglycemia. Ms. Hills was actually evaluated in this ER last night where she had a CT scan of her Left axilla and drainage of a subcutaneous abscess in addition to a small subcutaneous abscess on her buttocks. Since she appeared to be doing well she was discharged home on oral clindamycin 4 times daily. Unfortunately, last night after she left the emergency room she spiked temperatures up to 101.5 ?F followed by nausea and bilious emesis. 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 She admits to worsening pain in her Left axilla with ongoing drainage from her abscess site. She also admits to some confusion about her insulin dosing with patient apparently missing her insulin lispro for the past ~24 hours apparently due to a delay in delivery from her pharmacy. She denies associated changes in vision, discharge from eyes, runny nose, sore throat, ear pain, chest pain, palpitations, heart racing, dysuria, hematuria, arthralgias, myalgias, headache or rash. In the ER she was noted to have severe Hyperglycemia of 634 mg/dL and Lactic Acidosis of 3.5 mmol/L present on admission in the setting of recent I&D of Left axillary abscess with ongoing drainage and pain with Fever complicated by medical noncompliance with insulin confirmed by hemoglobin A1c of 14.4% this admission and she was then admitted to the general medical floor for ongoing care for stay that is expected to extend beyond 2 midnights. [facility] Medical History (Updated 12/10/24 @ 00:[address] 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 Obesity Open wound of vulva Hemoglobin A1c greater than 9.0% Vulvar abscess History of necrotising fasciitis Fibromyalgia Anxiety and depression History of venous thromboembolism Polycystic ovary Bipolar disorder Hydradenitis Medical History no medical history Home Medications ?Medication ?Instructions ?Recorded ?Last Taken ?Type biotin 1 mg capsule 1 mg PO DAILY supplement 01/06/22 Unknown History lactobacillus combination no.9 4 4,000 mmu cells PO DAILY supplement 01/06/22 09/16/24 History billion cell capsule (Adult 50 Plus Probiotic) flash glucose scanning reader #1 ea 01/30/23 Unknown Rx (FreeStyle Chirag 2 [place]) flash glucose sensor (FreeStyle #2 ea 01/30/23 Unknown Rx Chirag 2 Sensor kit) loratadine 10 mg tablet 10 mg PO DAILY allergies #90 tabs 01/30/23 09/16/24 Rx metformin 500 mg tablet 1,000 mg (2 x 500 mg) PO BIDCM 01/30/23 09/17/24 Rx diabetes #90 tabs omeprazole 40 mg capsule,delayed 40 mg PO DAILY GERD #90 caps 01/30/23 09/16/24 Rx release insulin lispro 100 unit/mL 14 unit subcut TIDCM PRN diabetes 11/14/23 09/16/24 History subcutaneous pen (Humalog KwikPen (U-100) Insulin) albuterol sulfate 90 mcg/actuation 2 puff inhalation Q4H PRN sob 06/08/24 Unknown History aerosol inhaler pregabalin 150 mg capsule 150 mg PO TID pain 06/08/24 09/16/24 History losartan 50 mg tablet 50 mg PO BID blood pressure 08/13/24 09/17/24 History alpha lipoic acid 200 mg capsule 200 mg PO TID supplement 09/17/24 09/17/24 History calcium carbonate 600 mg PO DAILY supplement 09/17/24 09/16/24 History cholecalciferol (vitamin D3) 10 10 mcg PO DAILY vitamin 09/17/24 09/16/24 History mcg (400 unit) capsule (Vitamin D3) ferrous sulfate 325 mg (65 mg 325 mg PO DAILY supplement 09/17/24 09/16/24 History iron) tablet (Feosol) magnesium 1 tab PO DAILY supplement 09/17/24 09/16/24 History mecobalamin (vitamin B12) 1,000 1,000 mcg PO DAILY vitamin 09/17/24 09/16/24 History mcg chewable tablet potassium gluconate 600 mg (99 mg) 600 mg PO DAILY supplement 09/17/24 09/16/24 History tablet amlodipine 10 mg tablet 10 mg PO DAILY #30 tabs 09/18/24 Unknown Rx atorvastatin 80 mg tablet 80 mg PO QHS #30 tabs 09/18/24 Unknown Rx furosemide 40 mg tablet 40 mg PO BID #60 tabs 09/18/24 Unknown Rx carvedilol 6.25 mg tablet 12.5 mg PO BID 12/08/24 Unknown History oxycodone-acetaminophen 5 mg-325 1 tab PO Q8H PRN pain 3 days #10 12/08/24 Unknown Rx mg tablet (Percocet) tabs dulaglutide 0.75 mg/0.5 mL 0.75 mg subcut QWEEK 12/09/24 Unknown History subcutaneous pen injector (Trulicity) hydrochlorothiazide 12.5 mg tablet 12.5 mg PO DAILY 12/09/24 Unknown History insulin glargine-yfgn 100 unit/mL 44 unit subcut BID 12/09/24 Unknown History (3 mL) subcutaneous pen lamotrigine 150 mg tablet 150 mg PO DAILY 12/09/24 Unknown History nystatin 100,000 unit/gram topical 1 applic topical BID PRN rash 12/09/24 Unknown History powder olanzapine 2.5 mg tablet 1.25 mg PO QHS 12/09/24 Unknown History prazosin 2 mg capsule 2 mg PO QHS 12/09/24 Unknown History Allergy/AdvReac Type Severity Reaction Status Date / Time doxycycline Allergy Severe rash Verified 12/09/24 21:26 amoxicillin (Amoxicillin) Allergy Unknown Verified 12/09/24 21:26 asenapine maleate (From Allergy Unknown Verified 12/09/24 21:26 Saphris) cephalexin AdvReac Intermediate upset Verified 12/09/24 21:26 stomach sulfamethoxazole (From AdvReac Upset Verified 12/09/24 21:26 Bactrim) Stomach trimethoprim (From Bactrim) AdvReac Upset Verified 12/09/24 21:26 Stomach Family History Mother Hypertension Brain aneurysm Father Diabetes Hypertension Grandmother Cancer liver throat kidney Diabetes Hypertension Heart disease CVA (cerebral vascular accident) Breast cancer Grandfather Kidney disease Hypertension CVA (cerebral vascular accident) Family History no significant family his Surgical History H/O lateral meniscus repair of left knee Surgical History no surgical history Social History household members: spouse Smoking Status: Current every day smoker tobacco type: e-cigarettes alcohol intake: never substance use type: does not use caffeine: Yes frequency: 5-6 times per week seatbelt use: always do you feel safe at home: Yes additional social history: Jonathan- Unemployed Patient is on disability ROS ROS Narrative Review of Systems: Constitutional: Patient admits to fever and chills. Eyes: Patient denies changes in vision or discharge from eyes. ENT: Patient denies runny nose, sore throat or ear pain. Resp: Patient denies shortness of breath or cough. CV: Patient denies chest pain, palpitations, heart racing or lower extremity edema. GI: Patient admits to nausea and vomiting with bilious emesis but she denies abdominal pain, diarrhea or constipation. : Patient admits to urinary frequency but she denies dysuria, hematuria. MSK: Patient denies arthralgias or myalgias. Skin: Patient admits to abscesses in both axillae and 1 small abscess recently I&D on her buttocks. Psych: Patient denies symptoms of uncontrolled depression or anxiety. Neuro: Patient denies headache, paresthesias or focal neurologic deficits. Allergy: Patient denies lip swelling, tongue swelling or urticaria. Hematology: Patient denies easy bleeding or easy bruisability. Endocrinology: Patient admits to polyuria and polydipsia but she denies polyphagia or heat/cold intolerance. 14 point ROS otherwise negative save for positives noted above in HPI. Vital Signs Vital Signs Vital Signs: 12/09/24 21:25 12/09/24 21:28 12/09/24 21:30 Temperature 100 F H 100 F H Temperature Source Oral Oral Pulse Rate 100 100 Respiratory Rate 20 H 20 H Respiratory Pattern Normal Blood Pressure 213/91 H 213/91 H Blood Pressure Mean 131 131 Pulse Ox 98 100 Oxygen Delivery Method Room Air 12/09/24 22:28 Temperature 100 F H Temperature Source Oral Pulse Rate 102 H Respiratory Rate 16 Respiratory Pattern Blood Pressure 169/78 H Blood Pressure Mean 108 Pulse Ox 100 Oxygen Delivery Method Room Air Weight Weight: 298 lb Body Mass Index (BMI) 45.3 Physical Exam Const alert, oriented x3 and no apparent distress Constitutional Narrative: Morbidly obese with nontoxic appearance. General Appearance: cooperative HEENT normocephalic, head/scalp atraumatic and hearing grossly normal bilaterally HEENT Narrative: Mucous membranes dry. Eyes PERRL, EOMs intact bilaterally and conjunctivae normal Neck no lymphadenopathy, supple and no JVD Resp normal respiratory effort, no retractions, no use of accessory muscles and clear to auscultation bilaterally Cardio regular rate and regular rhythm GI normal to inspection, nondistended, normoactive bowel sounds, soft to palpation, non-tender and non-distended GI Narrative: Morbidly obese. Extremity normal to inspection, full ROM and no clubbing, cyanosis or edema Skin Skin Narrative: Both axillae show recent evidence of I&D with ongoing drainage, no subcutaneous air, crepitus, no necrotic skin or other abscess noted. Neuro oriented x3, CN's II-XII intact bilaterally, moves all extremities and no focal motor deficits Sensorium / Orientation: awake, alert, oriented to person, oriented to place and oriented to time Speech: speech normal Psych affect normal Results Medical Records Data Attestation: I reviewed the patient's medical records Lab / Micro Data Attestation: I reviewed the patient's lab results. 12/10/24 03:26 12/10/24 03:26 Labs: Laboratory Results - last 24 hr 12/09/24 21:49: WBC Cancelled, Corrected WBC Cancelled, RBC Cancelled, Hgb Cancelled, Hct Cancelled, MCV Cancelled, MCH Cancelled, MCHC Cancelled, RDW Std Deviation Cancelled, RDW Coeff of Amada Cancelled, Plt Count Cancelled, MPV Cancelled, Immature Gran % (Auto) Cancelled, Neut % (Auto) Cancelled, Lymph % (Auto) Cancelled, Robeson % (Auto) Cancelled, Eos % (Auto) Cancelled, Baso % (Auto) Cancelled, Absolute Neuts (auto) Cancelled, Absolute Lymphs (auto) Cancelled, Total Counted Cancelled, Neutrophils % (Manual) Cancelled, Band Neutrophils % Cancelled, Lymphocytes % (Manual) Cancelled, Monocytes % (Manual) Cancelled, Eosinophils % (Manual) Cancelled, Basophils % (Manual) Cancelled, Metamyelocytes % Cancelled, Myelocytes % Cancelled, Promyelocytes % Cancelled, Blast Cells % Cancelled, Plasma Cell % (Manual) Cancelled, Other Cells % Cancelled, Nucleated RBC % Cancelled, Nucleated RBCs/100 WBC Cancelled, Differential Comment Cancelled, Diff Path Review Cancelled, Hypersegmented Neuts Cancelled, Atypical Lymphocytes Cancelled, Reactive Lymphocytes Cancelled, Smudge Cells Cancelled, Toxic Granulation Cancelled, Toxic Vacuolation Cancelled, Dohle Bodies Cancelled, Sara Rods Cancelled, Platelet Estimate Cancelled, Plt Morphology Comment Cancelled, RBC Morphology Cancelled 12/09/24 21:49: RBC Morphology Cancelled, Polychromasia Cancelled, Hypochromasia Cancelled, Basophilic Stippling Cancelled, Anisocytosis Cancelled, Microcytosis Cancelled, Macrocytosis Cancelled, Spherocytes Cancelled, Sickle Cells Cancelled, Target Cells Cancelled, Tear Drop Cells Cancelled, Ovalocytes Cancelled, Stomatocytes Cancelled, [place] Bodies Cancelled, Travis Cells Cancelled, Bite Cells Cancelled, Crenated Cell Cancelled, Acanthocytes (Spur) Cancelled, Rouleaux Cancelled, Schistocytes Cancelled, Sodium 128 L, Potassium 4.4, Chloride 94 L, Carbon Dioxide 22.2, Anion Gap 11, BUN 23 H, Creatinine 1.27 H, Estim Creat Clear Calc 85.04, Est GFR (MDRD) Non-Af 54 L, BUN/Creatinine Ratio 17.9, Glucose 634 H*, Calcium 8.3, b-Hydroxybutyric mmol/L 0.1 12/09/24 22:04: Lactic Acid 3.5 H* 12/09/24 22:31: WBC 5.0, RBC 3.61 L, Hgb 10.1 L, Hct 30.2 L, MCV 83.7, MCH 28.0, MCHC 33.4, RDW Std Deviation 43.1, RDW Coeff of Amada 14.1, Plt Count 148 L, MPV 12.4 H, Immature Gran % (Auto) 0.400, Neut % (Auto) 71.0 H, Lymph % (Auto) 15.5 L, Robeson % (Auto) 9.7, Eos % (Auto) 2.6, Baso % (Auto) 0.8, Absolute Neuts (auto) 3.5, Absolute Lymphs (auto) 0.77 L, Nucleated RBC % 0 Imaging [facility] Imaging Services [address] [place], [place] [address] Extremity Upper WITH Contrast MR#: [id number] Acct: [id number] Name: CLAYTON PALM Rep #: [id number] : 1985 F 39 From: Carlos Wu MD PCP: Nelly Michael Karl, [facility] Status: REG ER Study: Extremity Upper WITH Contrast Date of Exam: 12/08/24 Exam# [id number] Ordering Dr: Pankaj Fung MD PROCEDURE: EXTREMITY UPPER WITH CONTRAST 12/08/2024 REASON FOR EXAM: LEFT AXILLARY ABSCESS. HISTORY OF NEC FASCIITIS TECHNIQUE: CT of the left axilla and chest wall with contrast with coronal and sagittal reformatted images CONTRAST: 94 cc Isovue 370 IV One or more dose reduction techniques were used (e.g., Automated exposure control, adjustment of the mA and/or kV according to patient size, use of iterative reconstruction technique). RADIATION DOSE SUMMARY: CTDlvol: 41.40 mGy DLP: 1471.91 mGycm COMPARISON: None available FINDINGS: At the left axilla medially along the chest wall subcutaneous soft tissues just beneath the skin surface is a peripherally enhancing low-density collection measuring 3.4 x 1.5 x 2.2 cm collection with adjacent fat stranding for example axial 66 and coronal 79 most concerning for abscess. Adjacent fat subcutaneous soft tissue stranding, edema may be inflammatory or infectious. No soft tissue gas identified. No deep fascial plane edema noted. 1.9 x 1.5 cm soft tissue nodule lateral left chest and axilla with adjacent fat stranding may represent reactive node, nonspecific and follow-up to resolution. No fracture or dislocation. Mild acromioclavicular joint osteoarthrosis. No osseous destruction or periosteal reaction identified. Visualized portions of the left lung with a couple of bandlike areas of atelectasis otherwise appear clear. CT/Extremity Upper WITH Contrast IMPRESSION: Low-density peripherally enhancing collection in the left axilla just beneath the skin surface is most consistent with abscess as described in detail above. Subcutaneous soft tissue stranding and edema without soft tissue gas or fascial plane edema identified. Possible reactive left axillary lymph node as above, nonspecific and follow-up to resolution. Reading Location: [facility] CC: [facility] LUD[facility] Michael; Dr. 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 Hyperglycemia of 634 mg/dL and Lactic Acidosis of 3.5 mmol/L present on admission in the setting of recent I&D of Left axillary abscess with ongoing drainage, pain and Fever with known history of MRSA - Admit to general medical floor. Continue broad-spectrum antibiotics with IV clindamycin and await culture and sensitivity data. Check wound for MRSA with PCR. Serialize lactate. Give insulin glargine 44 units sq once plus sliding scale insulin. Check hemoglobin A1c to objectively evaluate quality of diabetic control. Give acetaminophen as needed for [id number] (level 1-5/10) pain or fever. Give morphine IV as needed for severe (level 6-10/10) pain. Finally, we will consult Dr. Byrd of infectious diseases and Wound RN see this patient on rounds in the a.m. for further recommendations with the help of both appreciated in advance. 2. DM-2; uncontrolled with hyperglycemia confirmed with hemoglobin A1c of 14.4% this admission in spite of being on metformin, dulaglutide, insulin glargine 30 units SQ twice daily and insulin lispro 10 units SQ 3 times daily with patient having missed insulin doses for the past ~24 hours complicating #1 - Restart home regimen. Finally, we will consult clinical dietitian to augment teaching for this patient with chronically poor control of her diabetes without appreciated advance. 3. History of hidradenitis suppurativa; recent abscess drainage of her Right axilla compounding #1 & #2 - Noted. 4. Morbid obesity; with BMI of 45.3 this admission adding to the burden of disease outlined from #1 - #3 - Weight loss to be recommended. Check TSH. This complicates her case and may hamper recovery. 5. Chronic tobacco abuse amplifying the pathology of #1 - #4 - Tobacco Cessation will be strongly encouraged with nicotine patch however to control cravings. 6. Most recent admission here from September 17, 2024 to September 18, 2024 for chest pain and shortness of breath complicated by otitis media and uncontrolled DM-2 with hyperglycemia - Noted. 7. Essential hypertension; on amlodipine, losartan, carvedilol twice daily and furosemide twice daily - Maintain home regimen except furosemide. Give IV hydralazine as needed for systolic blood pressure greater than 160 mmHg. 8. Hyperlipidemia; on atorvastatin - Resume statin and check Lipid Profile. 9. History of VTE; currently not on anticoagulation - Noted with no signs of recurrence at this time. 10. History of necrotizing fasciitis - Noted. 11. History of PCOS; with chronic ~5 cm hemorrhagic Left ovarian cyst - Noted. 12. History of metabolic syndrome - Stable. 13. History of vulvar abscess - Noted. 14. Craniofacial hyperhidrosis - Noted. 15. Fibromyalgia; on pregabalin 3 times daily - Continue pregabalin as before. 16. History of seizures; on lamotrigine - Current treatment will be continued. Give IV lorazepam as needed for breakthrough seizure activity. 17. Bipolar disorder; on olanzapine - Maintain current regimen. 18. ADHD - Stable. 19. PTSD - Stable. 20. History of COVID-19 - Noted. 21. History of Left lateral meniscus repair - Noted. 22. GERD; on omeprazole - Resume PPI as previous. 23. History of hepatosplenomegaly - Noted. 24. Listed allergies to Amoxil and Keflex - Noted. 25. Tentative diagnosis of Multiple Sclerosis; with multiple plaques noted on brain and spinal cord and treatment yet to be initiated - Noted. 26. DVT prophylaxis - Enoxaparin 40 mg sq BID. Total time: Approximately (but not less than) 75 minutes. Charges/Coding Visit Charges Inpatient E&M: 81701 Init Hosp L3
[2024-12-09 23:00] VITALS: BP 169/66; PULSE 102; RESP 18; TEMP 37.7; O2SAT 99
[2024-12-09] MEDS: Insulin Lispro 100 UNIT/ML INSULN.PEN 30 UNIT SC (23:00)
[2024-12-09 23:07] VITALS: BP 169/66; PULSE 103; RESP 18; TEMP 37.7; O2SAT 98
[2024-12-09 23:54] LABS: Bedside Glucose 498 mg/dL (74-106)
[2024-12-10] VITALS (7 sets, daily range): BP systolic 145–177; BP diastolic 76–84; PULSE 75–100; RESP 16–18; TEMP 36.7–38.3; O2SAT 95–99; BMI 45.1
[2024-12-10 00:15] LABS: Lactic Acid 1.6 mmol/L (0.0-2.0)
[2024-12-10 00:34] LABS: Hemoglobin A1c 14.4 % (<=5.6)
[2024-12-10 02:08] LABS: Reflex Lactate? Y
[2024-12-10] MEDS: Vancomycin HCl 2,000 MG in 0.9% Normal Saline (500mL Bag) 500 ML 250 MG IV ×2 (02:40→14:30)
[2024-12-10] MEDS: 0.9% Normal Saline (1000mL) 1,000 ML 125 ML IV (02:40)
[2024-12-10] MEDS: Ondansetron 4 MG/2 ML Vial IV (02:41)
[2024-12-10] MEDS: oxyCODONE 5 MG Tablet PO ×2 (02:41→20:41)
[2024-12-10] MEDS: 0.9% Saline Lock 10 ML Syringe IV (02:42)
[2024-12-10 03:07] LABS: Mucous, Urine 0 SEEN /hpf (<or=2+)
[2024-12-10 03:10] LABS: Color, Urine Yellow (Yellow); Glucose, Dipstick 1000 mg/dl (Normal); Ketone-Dipstick Negative (Negative); Leukocyte Esterase-Dipstick 500 /ul (Negative); Nitrite-Dipstick Negative (Negative); Occult Blood-Urine 250 /ul (Negative); Protein-Dipstick 100 mg/dl (Negative); Specific Gravity, Urine 1.015 (1.002-1.030); Urine Bilirubin Dipstick Negative (Negative); Urine Clarity Sl. Cloudy (Clear); Urine Urobilinogen Normal (Normal)
[2024-12-10 03:19] LABS: Bedside Glucose 236 mg/dL (74-106)
[2024-12-10 03:28] LABS: Bacteria 2+ /hpf (None Seen); Red Blood Cells-Urine 10-25 SEEN /hpf (0-5); Renal Epithelial Cells 0-5 SEEN /hpf (0-5); Squamous Epithelial Cells - UA 0-5 SEEN /hpf (5-10); White Blood Cells 50-100 SEEN /hpf (0-5)
[2024-12-10] MEDS: Acetaminophen 325 MG Tablet 650 MG PO (03:34)
[2024-12-10 03:40] LABS: Absolute Neutrophil Count 3.5 X10^3/uL (2.0-7.7); Basophil# 0.04 X10^3/uL; Basophil% 0.7 % (0-1); Eosinophil# 0.19 X10^3/uL; Eosinophils% 3.3 % (0-5); Hematocrit 29.8 % (37-47); Hemoglobin 10.1 g/dL (12.0-15.0); Lymphocyte % 22.4 % (19-41); Mean Corp Hgb Conc 33.9 g/dL (32-36); Mean Corpuscular Hgb 28.2 pg (27.0-32.0); Mean Corpuscular Volume 83.2 fL (81-99); Mean Platelet Vol. 12.1 fl (6.2-12.0); Monocyte# 0.72 X10^3/uL; Monocyte% 12.4 % (0-10); NRBC Flagged by Analyzer 0 % (0-5); Neutrophil # 3.52 X10^3/uL (2.7-7.7); Neutrophil % 60.7 % (47-70); Platelet Count 168 K/mm3 (150-450); RBC Distribution Width SD 43.1 fl (35.1-43.9); Red Blood Count 3.58 M/mm3 (4.2-5.4); White Blood Count 5.8 K/mm3 (4.4-11.0)
[2024-12-10 03:58] LABS: Internal QC Validated? YES +Cl - CLEAR BKGD; Pregnancy, Urine Negative Negative
--- NOTE | 2024-12-10 04:06 | PCM.RX.CS ---
Consult Antibiotic Management Pharmacy has been consulted to manage selected antibiotic: Vancomycin Type of Intervention Type of Consult: New start Dosing Weight Weight used for dosin kg Estimated Creatinine Clearance Estimated Creatinine Clearance: 85 Goal Trough Goal Trough: 15-20 mcg/mL Pharmacy Plan for Drug Dosing Pharmacy Plan for Drug Dosing: Pharmacy Service will continue to monitor and adjust dosing as required. 2000MG LOADING DOSE GIVEN 12/10 @ 0240. START 2GM Q12H AND DRAW TROUGH PRIOR TO 4TH DOSE Follow-Up Labs Follow-Up Labs: Trough: Vancomycin Date/Time Labs Ordered Labs to be done on [date and time ordered]: 12/11 @ 1400
[2024-12-10 04:18] LABS: AST(SGOT) 29 U/L (<=31); Alanine Aminotransfer ALT/SGPT 52 U/L (<=34); Albumin, Serum 3.2 g/dL (3.5-5.0); Alkaline Phosphatase 124 U/L (35-104); Anion Gap 8 (5-15); BUN 21 mg/dL (4-19); BUN/Creat Ratio 19.5 RATIO (10-20); Calcium,Total 8.5 mg/dL (7.6-11.0); Carbon Dioxide 25.4 mmol/L (21.0-32.0); Chloride 99 mmol/L (98-108); Creatinine, Serum 1.08 mg/dL (0.70-1.20); EST Glomerular Filtration Rate 66 (>60); Estimated Creatinine Clearance 99.97 ml/min (50-250); Globulin 3.2 g/dL (2.2-4.2); Glucose 249 mg/dL (70-99); Phosphorus 2.6 mg/dL (2.7-4.5); Potassium 4.2 mmol/L (3.3-5.1); Protein, Total 6.4 g/dL (5.9-8.4); Sodium Level 132 mmol/L (133-145); Total Bilirubin 0.46 mg/dL (0.00-1.30)
[2024-12-10 04:19] LABS: Lactic Acid 1.2 mmol/L (0.0-2.0)
[2024-12-10 04:21] LABS: Amphetamine Urine NEGATIVE (<1000 ng/mL); Barbiturate Urine NEGATIVE (< 200 ng/mL); Benzodiazepine Urine NEGATIVE (< 200 ng/mL); Buprenorphine Urine NEGATIVE (< 200 ng/mL); Cocaine Urine NEGATIVE (< 300 ng/mL); Fentanyl, Urine NEGATIVE; Methadone Urine NEGATIVE (< 300 ng/mL); Opiates Urine NEGATIVE (< 300 ng/mL); Oxycodone, Urine PRESUMPTIVE POSITIVE (< 100 ng/mL); PCP Urine NEGATIVE (< 25 ng/mL); THC Urine NEGATIVE (< 50 ng/mL)
[2024-12-10] MEDS: Pregabalin 75 MG Capsule 150 MG PO ×3 (05:45→22:35)
[2024-12-10] MEDS: Clindamycin 600 MG/50 ML BAG 100 MG IV ×2 (07:06→13:35)
[2024-12-10] MEDS: Insulin Lispro 100 UNIT/ML INSULN.PEN SC ×4 (07:09→22:39)
[2024-12-10 07:29] LABS: Bedside Glucose 255 mg/dL (74-106)
--- NOTE | 2024-12-10 08:15 | WOUNDNOTE ---
wound photo: left axilla
--- NOTE | 2024-12-10 08:16 | WOUNDNOTE ---
wound photo: right axilla
[2024-12-10 09:07] LABS: M R Staph aureus DNA By PCR POSITIVE (Negative); Probe Check PASS; Staph aureus DNA By PCR POSITIVE (Negative)
--- NOTE | 2024-12-10 10:15 | PN.HOSP_ITS ---
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 (12/09/24) Personal history of Methicillin resistant Staphylococcus aureus infection (12/09/24) Personal history of diseases of the skin and subcutaneous tissue (12/09/24) Patient's noncompliance with other medical treatment and regimen due to unspecified reason (12/09/24) Objective Data Objective Data Vital Signs: Vital Signs Temp Pulse Resp BP Pulse Ox O2 Del Method 99.3 F H 100 18 177/81 H 97 Room Air 12/10/24 05:42 12/10/24 01:54 12/10/24 01:54 12/10/24 01:54 12/10/24 01:54 12/10/24 02:13 Oxygen Delivery Method Room Air Weight: 297 lb 13.512 oz Body Mass Index (BMI) 45.1 Intake & Output: Intake and Output for Last 24 Hours 12/08/24 12/09/24 12/10/24 23:59 23:59 23:59 Intake Total 50 / 50 2040 / 2040 Output Total 300 / 300 Balance 50 / 50 1740 / 1740 Lab / Micro Data 12/10/24 03:26 12/10/24 03:26 Labs: Laboratory Results - last 24 hr 12/09/24 02:55: Urine Color Yellow, Urine Clarity Sl. Cloudy, Urine pH 6.0, Ur Specific [place] 1.015, Urine Protein 100 H, Urine Glucose (UA) 1000 H, Urine Ketones Negative, Urine Occult Blood 250 H, Urine Nitrite Negative, Urine Bilirubin Negative, Urine Urobilinogen Normal, Ur Leukocyte Esterase 500 H, Urine RBC 10-25 SEEN, Urine WBC 50-100 SEEN, Ur Squamous Epith Cells 0-5 SEEN, Ur Renal Epithelial Cell 0-5 SEEN, Urine Bacteria 2+, Urine Mucus 0 SEEN Sodium 128 L, Potassium 4.4, Chloride 94 L, Carbon Dioxide 22.2, Anion Gap 11, BUN 23 H, Creatinine 1.27 H, Estim Creat Clear Calc 85.04, Est GFR (MDRD) Non-Af 54 L, BUN/Creatinine Ratio 17.9, Glucose 634 H*, Calcium 8.3, Magnesium 2.0, b- Hydroxybutyric mmol/L 0.1, TSH 1.960 12/09/24 22:04: Lactic Acid 3.5 H* 12/09/24 22:31: WBC 5.0, RBC 3.61 L, Hgb 10.1 L, Hct 30.2 L, MCV 83.7, MCH 28.0, MCHC 33.4, RDW Std Deviation 43.1, RDW Coeff of Amada 14.1, Plt Count 148 L, MPV 12.4 H, Immature Gran % (Auto) 0.400, Neut % (Auto) 71.0 H, Lymph % (Auto) 15.5 L, Potter % (Auto) 9.7, Eos % (Auto) 2.6, Baso % (Auto) 0.8, Absolute Neuts (auto) 3.5, Absolute Lymphs (auto) 0.77 L, Nucleated RBC % 0, Hemoglobin A1c 14.4 H 12/09/24 23:29: Lactic Acid 1.6 12/09/24 23:37: POC Glucose 498 H* 12/10/24 02:55: Urine Test Negative, Urine Opiates Screen NEGATIVE, U Buprenorphine Qual NEGATIVE, Ur Oxycodone Screen PRESUMPTIVE POSITIVE, Urine Methadone Screen NEGATIVE, Urine Fentanyl Screen NEGATIVE, Ur Barbiturates Screen NEGATIVE, Ur Phencyclidine Scrn NEGATIVE, Ur Amphetamines Screen NEGATIVE, U Benzodiazepines Scrn NEGATIVE, Urine Cocaine Screen NEGATIVE, U Cannabinoids Screen NEGATIVE 12/10/24 02:59: POC Glucose 236 H 12/10/24 03:26: WBC 5.8, RBC 3.58 L, Hgb 10.1 L, Hct 29.8 L, MCV 83.2, MCH 28.2, MCHC 33.9, RDW Std Deviation 43.1, RDW Coeff of Amada 14.0, Plt Count 168, MPV 12.1 H, Immature Gran % (Auto) 0.500, Neut % (Auto) 60.7, Lymph % (Auto) 22.4, M bo % (Auto) 12.4 H, Eos % (Auto) 3.3, Baso % (Auto) 0.7, Absolute Neuts (auto) 3.5, Absolute Lymphs (auto) 1.30, Nucleated RBC % 0, Sodium 132 L, Potassium 4.2, Chloride 99, Carbon Dioxide 25.4, Anion Gap 8, BUN 21 H, Creatinine 1.08, Estim Creat Clear Calc 99.97, Est GFR (MDRD) Non-Af 66, BUN/Creatinine Ratio 19.5, Glucose 249 H, Lactic Acid 1.2, Calcium 8.5, Phosphorus 2.6 L, Total Bilirubin 0.46, AST 29, ALT 52 H, Alkaline Phosphatase 124 H, Total Protein 6.4, Albumin 3.2 L, Globulin 3.2, Albumin/Globulin Ratio 1.0 12/10/24 05:55: S.aureus Protein A PCR POSITIVE H, MRSA (PCR) POSITIVE H 12/10/24 07:08: POC Glucose 255 H Physical Exam Narrative Seen and examined Patient has a history of MRSA hidradenitis. She had right axillary region drained by Dr. Jun Caraballo probably about 5 days to 1 week ago and then yesterday left axillary region drained in ED. Patient also had fever 101 Fahrenheit yesterday. Physical exam General: Alert, Oriented x3, Cooperative. Morbid obesity BMI 45.1 kg/m? HEENT: Atraumatic, PERRLA, EOMI, Normocephalic. Oral: No Gingival or Mucosal Lesions/ Ulcerations Neck: Supple, No JVD, Negative Carotid Bruits Chest wall/Lungs: Air entry diminished in bilateral lung bases. No crepitation/rhonchi Cardiovascular: Regular rate and rhythm, Normal S1,S2, No M/G/R Abdomen: Bowel Sounds Present, Soft, Non Tender, Non-Distended : No dysuria. No renal angle tenderness. No suprapubic tenderness. Extremities: No edema, Capillary Refill Less than 3 Seconds Skin: Dressing present on right and left axillary. Old scar tissue and subcutaneous fibrosis Musculoskeletal: No Tenderness to Palpation of Joints or Extremities. ROM restricted Neurological: Cranial nerves II-XII grossly intact, DTR 2+/4. No acute focal neurological deficit. 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 insulin use: with termite control representative use Qualified Code(s): E11.65 - Type 2 diabetes mellitus with hyperglycemia; Z79.4 - detention (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 of insulin (2) Lactic acidosis: (3) Abscess of axilla, left: (4) History of MRSA infection: (5) Fever: QUALIFIERS: Fever type: unspecified Qualified Code(s): R50.9 - Fever, unspecified (6) Medical non-compliance: (7) History of hidradenitis suppurativa: (8) Morbid obesity with BMI of 45.0-49.9, adult: (9) Tobacco abuse: PLAN: Plan 39-year-old female admitted with fever 101.5 Fahrenheit at home and had left axillary region abscess drained on 12/08/2024. Patient also had nausea and vomiting. Blood sugar was high at 8600. 1. Infected hidradenitis suppurativa with bilateral abscesses, recently drained with fever: Patient wound MRSA screen is positive. Continue IV antibiotics vancomycin and clindamycin. Plastic surgeon consulted. Wound culture shows 4+ WBC, rare GPC. Will consult ID. Patient is also chronic smoker advised to quit. This worsens hidradenitis suppurativa healing. 2. DM type II with uncontrolled hyperglycemia: A1c 14.4% this admission: Patient on metformin, dulaglutide, insulin glargine 38 securities twice daily and lispro 10 units subcu 3 times daily. Accu-Chek before meals and at bedtime with Humalog sliding scale coverage and hypoglycemia protocol. Monitor glucose and titrate accordingly. 3. Morbid obesity; with BMI of 45.3 KG per square meter weight loss counseling done. Patient is also chronically smoker 4. Essential hypertension; on amlodipine, losartan, carvedilol twice daily and furosemide twice daily -BP 145/76, it was high at the time of admission. decrease the dose of furosemide from twice daily to once daily. Hyperlipidemia; on atorvastatin -statin resumed Chronic comorbidities includes fibromyalgia, seizure on lamotrigine, bipolar disorder on olanzapine. Tentative diagnosis of Multiple Sclerosis; with multiple plaques noted on brain and spinal cord and treatment yet to be initiated -follow-up outpatient DVT prophylaxis - Enoxaparin 40 mg sq BID. Charges/Coding Visit Charges Inpatient E&M: 96603 Subs Hosp L2
[2024-12-10] MEDS: Insulin Glargine-YFGN 100 UNIT/ML Pen 44 UNIT SC (11:24)
[2024-12-10] MEDS: Enoxaparin 40 MG/0.4 ML Syringe SC ×2 (11:27→22:34)
--- NOTE | 2024-12-10 11:32 | CASEMGMT ---
RN CM Assessment Face to Face with patient for initial transition planning/care coordination assessment. RN CM introduced self and role at [facility], pt voices understanding. Pt is A&Ox4 and is resting comfortably in bed and is calm. Care providers, pharmacy, and demographics verified. Admitting dx: Hyperglycemia, Lactic Acidosis, Left Axilla Abscess LACE Strata: 3 PCP: Nelly Michael @ the [facility] Specialists: Dr. Jun Caraballo (Gen Surgery [facility]). Pt reports that she sees the following specialists through [facility]: Kai Pabon (Nephro), Carlos Manzo (Endo), Lynsey Bolden (FLOOR BROKER - GI), Thierry (Cardio), Shira Fried (RAILWAY PATROL OFFICER - Neuro). Pt also sees a Manufacturing Controller but cannot recall the name. Preferred Pharmacy: [facility] Insurance: [employer], [employer]. Pt states that she believes that she has a CM through her insurance. Pt thinks that the name is Bonnie but is unsure. Pt does not have the contact information at this time. Pt states that she is active with the Waiver Program and that they are trying to get the pt established with Pvt Duty Aid as the pt's is unable to assist the pt 26/02. Pt has also been set up with a medical alert system. Prescription Benefit: Yes LNOK: Armen Lisbet (H), Cm Gallego (Father) Living Arrangements: Pt lives with her in a ground level apartment with 3-4 steps to enter ADLs/IADLs: Pt states that she is mainly independent but does appreciate help at home as needed through her SO. See above. Transportation: Pt and pt's do not drive. Pt utilizes her insurance for transportation and denies concerns. DME: Pt states to this RN CM that she has been compliant in caring for her DM with her CBGM, sensors, back up BGM with sufficient supplies, and insulin shots. Pt denies concerns. Pt also has a BP machine, pulse ox, thermometer, and medical alert system. HHC/SNF: Reports [facility] history in 2017 for a wound vac. Denies SNF history. Pt has been to the [facility] in the past. Wound: Pt is s/p I&D. Pt states that she can try to care for her wound at home but is unsure if she will be able to. Pt plans to f/u with Dr Caraballo as needed. Pt states that her gets too queasy when caring for wounds and is unsure if he will be able to help. Pt states that she would like to go to the [facility] after DC for follow up care. Smoking history: Pt states that she vapes daily and denies wanting any resources regarding cessation. Pt?s goal: Home Plan: TBD. Anticipate return home with the pt's SO once medically ready, potential HH for wound care, transportation through the insurance, & f/u at the [facility]. Pt encouraged to care for her DM better moving forward. Clinical box spring frame builder is consulted to provide further education. Follow ID recommendations. At this time, the pt states that she would like C to help with wound care at home. Pt was educated about homebound status and states understanding. Pt would like to try to get HH set up regardless. At this time, the pt denies wanting to review a list of local in-network HHC agencies and states that she would prefer [facility] HH if they were able to accept. TC to [facility] and referral made for SN. Awaiting return response. Pt denies further questions or concerns at this time. Report given to JAYDE PINEDA CM. Rosa Boyd RN, CM
--- NOTE | 2024-12-10 11:50 | NURSING ---
none of pt po meds here for pt administration-Rx updated to please send
--- NOTE | 2024-12-10 11:55 | EX.PCM.CON.S ---
Assessment & Plan Assessment/Plan (1) History of hidradenitis suppurativa: (2) Abscess of axilla, left: PLAN: Plan Agree with continued packing of the left axilla with iodoform daily and treatment with broad-spectrum antibiotics. Agree with tight blood glucose control Agree with mammogram in the setting of age over 40, but especially in the setting of a right breast lump and axillary wounds/drainage Plastics will follow HPI Consult Data Date of Consult: 12/10/24 HPI Narrative HPI Narrative: CLAYTON PALM is a delightful 39 F who presents as an inpatient consultation for left axillary wound in the setting of recently drained hidradenitis associated abscess. Patient has a history of hidradenitis suppurativa that is being managed mostly by Dr. Booth, a [facility] general surgeon here in [place]. Patient was admitted to the hospital yesterday, however, for blood sugars in the 600s in the setting of the fever after recently drained left axillary abscess (drained by the emergency department on 08 Dec 2024). Her sugars have since stabilized. Her A1c is 14. Patient reports that she has not yet had a mammogram. Her right medial breast has a breast lump and therefore she is reportedly scheduling a mammogram. Today in the floor she is feeling well with a normal white blood cell count and stable vital signs. She is afebrile. The nurses been packing the left axilla with iodoform. [facility] Medical History (Updated 12/10/24 @ 00:[address] 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 Obesity Open wound of vulva Hemoglobin A1c greater than 9.0% Vulvar abscess History of necrotising fasciitis Fibromyalgia Anxiety and depression History of venous thromboembolism Polycystic ovary Bipolar disorder Hydradenitis Medical History no medical history Home Medications ?Medication ?Instructions ?Recorded ?Last Taken ?Type biotin 1 mg capsule 1 mg PO DAILY supplement 01/06/22 Unknown History lactobacillus combination no.9 4 4,000 mmu cells PO DAILY supplement 01/06/22 09/16/24 History billion cell capsule (Adult 50 Plus Probiotic) flash glucose scanning reader #1 ea 01/30/23 Unknown Rx (FreeStyle Chirag 2 Perry) flash glucose sensor (FreeStyle #2 ea 01/30/23 Unknown Rx Chirag 2 Sensor kit) loratadine 10 mg tablet 10 mg PO DAILY allergies #90 tabs 01/30/23 09/16/24 Rx metformin 500 mg tablet 1,000 mg (2 x 500 mg) PO BIDCM 01/30/23 09/17/24 Rx diabetes #90 tabs omeprazole 40 mg capsule,delayed 40 mg PO DAILY GERD #90 caps 01/30/23 09/16/24 Rx release insulin lispro 100 unit/mL 14 unit subcut TIDCM PRN diabetes 11/14/23 09/16/24 History subcutaneous pen (Humalog KwikPen (U-100) Insulin) albuterol sulfate 90 mcg/actuation 2 puff inhalation Q4H PRN sob 06/08/24 Unknown History aerosol inhaler pregabalin 150 mg capsule 150 mg PO TID pain 06/08/24 09/16/24 History losartan 50 mg tablet 50 mg PO BID blood pressure 08/13/24 09/17/24 History alpha lipoic acid 200 mg capsule 200 mg PO TID supplement 09/17/24 09/17/24 History calcium carbonate 600 mg PO DAILY supplement 09/17/24 09/16/24 History cholecalciferol (vitamin D3) 10 10 mcg PO DAILY vitamin 09/17/24 09/16/24 History mcg (400 unit) capsule (Vitamin D3) ferrous sulfate 325 mg (65 mg 325 mg PO DAILY supplement 09/17/24 09/16/24 History iron) tablet (Feosol) magnesium 1 tab PO DAILY supplement 09/17/24 09/16/24 History mecobalamin (vitamin B12) 1,000 1,000 mcg PO DAILY vitamin 09/17/24 09/16/24 History mcg chewable tablet potassium gluconate 600 mg (99 mg) 600 mg PO DAILY supplement 09/17/24 09/16/24 History tablet amlodipine 10 mg tablet 10 mg PO DAILY #30 tabs 09/18/24 Unknown Rx atorvastatin 80 mg tablet 80 mg PO QHS #30 tabs 09/18/24 Unknown Rx furosemide 40 mg tablet 40 mg PO BID #60 tabs 09/18/24 Unknown Rx carvedilol 6.25 mg tablet 12.5 mg PO BID 12/08/24 Unknown History oxycodone-acetaminophen 5 mg-325 1 tab PO Q8H PRN pain 3 days #10 12/08/24 Unknown Rx mg tablet (Percocet) tabs dulaglutide 0.75 mg/0.5 mL 0.75 mg subcut QWEEK 12/09/24 Unknown History subcutaneous pen injector (Trulicity) hydrochlorothiazide 12.5 mg tablet 12.5 mg PO DAILY 12/09/24 Unknown History insulin glargine-yfgn 100 unit/mL 44 unit subcut BID 12/09/24 Unknown History (3 mL) subcutaneous pen lamotrigine 150 mg tablet 150 mg PO DAILY 12/09/24 Unknown History nystatin 100,000 unit/gram topical 1 applic topical BID PRN rash 12/09/24 Unknown History powder olanzapine 2.5 mg tablet 1.25 mg PO QHS 12/09/24 Unknown History prazosin 2 mg capsule 2 mg PO QHS 12/09/24 Unknown History Allergy/AdvReac Type Severity Reaction Status Date / Time doxycycline Allergy Severe rash Verified 12/09/24 21:26 amoxicillin (Amoxicillin) Allergy Unknown Verified 12/09/24 21:26 asenapine maleate (From Allergy Unknown Verified 12/09/24 21:26 Saphris) cephalexin AdvReac Intermediate upset Verified 12/09/24 21:26 stomach sulfamethoxazole (From AdvReac Upset Verified 12/09/24 21:26 Bactrim) Stomach trimethoprim (From Bactrim) AdvReac Upset Verified 12/09/24 21:26 Stomach Family History Mother Hypertension Brain aneurysm Father Diabetes Hypertension Grandmother Cancer liver throat kidney Diabetes Hypertension Heart disease CVA (cerebral vascular accident) Breast cancer Grandfather Kidney disease Hypertension CVA (cerebral vascular accident) Family History no significant family his Surgical History H/O lateral meniscus repair of left knee Surgical History no surgical history Social History household members: spouse Smoking Status: Current every day smoker tobacco type: e-cigarettes alcohol intake: never substance use type: does not use caffeine: Yes frequency: 5-6 times per week seatbelt use: always do you feel safe at home: Yes additional social history: Jonathan- Unemployed Patient is on disability Physical Exam Narrative Female bicycle rental clerk present during my examination Breast exam performed No nipple discharge. Right breast with a palpable inferior medial lump. There is bilateral axillary induration consistent with hidradenitis, but no palpable lumps. The left axilla is packed well with iodoform gauze and does not have any persistent purulent drainage. The incision is approximately 1 cm wide. Lab / Micro Data 12/10/24 03:26 12/10/24 03:26 Labs: Laboratory Results - last 24 hr 12/09/24 02:55: Urine Color Yellow, Urine Clarity Sl. Cloudy, Urine pH 6.0, Ur Specific [place] 1.015, Urine Protein 100 H, Urine Glucose (UA) 1000 H, Urine Ketones Negative, Urine Occult Blood 250 H, Urine Nitrite Negative, Urine Bilirubin Negative, Urine Urobilinogen Normal, Ur Leukocyte Esterase 500 H, Urine RBC 10-25 SEEN, Urine WBC 50-100 SEEN, Ur Squamous Epith Cells 0-5 SEEN, Ur Renal Epithelial Cell 0-5 SEEN, Urine Bacteria 2+, Urine Mucus 0 SEEN 12/09/24 21:49: WBC Cancelled, Corrected WBC Cancelled, RBC Cancelled, Hgb Cancelled, Hct Cancelled, MCV Cancelled, MCH Cancelled, MCHC Cancelled, RDW Std Deviation Cancelled, RDW Coeff of Amada Cancelled, Plt Count Cancelled, MPV Cancelled, Immature Gran % (Auto) Cancelled, Neut % (Auto) Cancelled, Lymph % (Auto) Cancelled, Ware % (Auto) Cancelled, Eos % (Auto) Cancelled, Baso % (Auto) Cancelled, Absolute Neuts (auto) Cancelled, Absolute Lymphs (auto) Cancelled, Total Counted Cancelled, Neutrophils % (Manual) Cancelled, Band Neutrophils % Cancelled, Lymphocytes % (Manual) Cancelled, Monocytes % (Manual) Cancelled, Eosinophils % (Manual) Cancelled, Basophils % (Manual) Cancelled, Metamyelocytes % Cancelled, Myelocytes % Cancelled, Promyelocytes % Cancelled, Blast Cells % Cancelled, Plasma Cell % (Manual) Cancelled, Other Cells % Cancelled, Nucleated RBC % Cancelled, Nucleated RBCs/100 WBC Cancelled, Differential Comment Cancelled, Diff Path Review Cancelled, Hypersegmented Neuts Cancelled, Atypical Lymphocytes Cancelled, Reactive Lymphocytes Cancelled, Smudge Cells Cancelled, Toxic Granulation Cancelled, Toxic Vacuolation Cancelled, Dohle Bodies Cancelled, Sara Rods Cancelled, Platelet Estimate Cancelled, Plt Morphology Comment Cancelled, RBC Morphology Cancelled 12/09/24 21:49: RBC Morphology Cancelled, Polychromasia Cancelled, Hypochromasia Cancelled, Basophilic Stippling Cancelled, Anisocytosis Cancelled, Microcytosis Cancelled, Macrocytosis Cancelled, Spherocytes Cancelled, Sickle Cells Cancelled, Target Cells Cancelled, Tear Drop Cells Cancelled, Ovalocytes Cancelled, Stomatocytes Cancelled, [place] Bodies Cancelled, [place] Cells Cancelled, Bite Cells Cancelled, Crenated Cell Cancelled, Acanthocytes (Spur) Cancelled, Rouleaux Cancelled, Schistocytes Cancelled, Sodium 128 L, Potassium 4.4, Chloride 94 L, Carbon Dioxide 22.2, Anion Gap 11, BUN 23 H, Creatinine 1.27 H, Estim Creat Clear Calc 85.04, Est GFR (MDRD) Non-Af 54 L, BUN/Creatinine Ratio 17.9, Glucose 634 H*, Calcium 8.3, Magnesium 2.0, b-Hydroxybutyric mmol/L 0.1, TSH 1.960 12/09/24 22:04: Lactic Acid 3.5 H* 12/09/24 22:31: WBC 5.0, RBC 3.61 L, Hgb 10.1 L, Hct 30.2 L, MCV 83.7, MCH 28.0, MCHC 33.4, RDW Std Deviation 43.1, RDW Coeff of Amada 14.1, Plt Count 148 L, MPV 12.4 H, Immature Gran % (Auto) 0.400, Neut % (Auto) 71.0 H, Lymph % (Auto) 15.5 L, [place] % (Auto) 9.7, Eos % (Auto) 2.6, Baso % (Auto) 0.8, Absolute Neuts (auto) 3.5, Absolute Lymphs (auto) 0.77 L, Nucleated RBC % 0, Hemoglobin A1c 14.4 H 12/09/24 23:29: Lactic Acid 1.6 12/09/24 23:37: POC Glucose 498 H* 12/10/24 02:55: Urine Test Negative, Urine Opiates Screen NEGATIVE, U Buprenorphine Qual NEGATIVE, Ur Oxycodone Screen PRESUMPTIVE POSITIVE, Urine Methadone Screen NEGATIVE, Urine Fentanyl Screen NEGATIVE, Ur Barbiturates Screen NEGATIVE, Ur Phencyclidine Scrn NEGATIVE, Ur Amphetamines Screen NEGATIVE, U Benzodiazepines Scrn NEGATIVE, Urine Cocaine Screen NEGATIVE, U Cannabinoids Screen NEGATIVE 12/10/24 02:59: POC Glucose 236 H 12/10/24 03:26: WBC 5.8, RBC 3.58 L, Hgb 10.1 L, Hct 29.8 L, MCV 83.2, MCH 28.2, MCHC 33.9, RDW Std Deviation 43.1, RDW Coeff of Amada 14.0, Plt Count 168, MPV 12.1 H, Immature Gran % (Auto) 0.500, Neut % (Auto) 60.7, Lymph % (Auto) 22.4, Ware % (Auto) 12.4 H, Eos % (Auto) 3.3, Baso % (Auto) 0.7, Absolute Neuts (auto) 3.5, Absolute Lymphs (auto) 1.30, Nucleated RBC % 0, Sodium 132 L, Potassium 4.2, Chloride 99, Carbon Dioxide 25.4, Anion Gap 8, BUN 21 H, Creatinine 1.08, Estim Creat Clear Calc 99.97, Est GFR (MDRD) Non-Af 66, BUN/Creatinine Ratio 19.5, Glucose 249 H, Lactic Acid 1.2, Calcium 8.5, Phosphorus 2.6 L, Total Bilirubin 0.46, AST 29, ALT 52 H, Alkaline Phosphatase 124 H, Total Protein 6.4, Albumin 3.2 L, Globulin 3.2, Albumin/Globulin Ratio 1.0 12/10/24 05:55: S.aureus Protein A PCR POSITIVE H, MRSA (PCR) POSITIVE H 12/10/24 07:08: POC Glucose 255 H Imaging I reviewed the CT scan from 08 Dec 2024 which demonstrated the left axillary abscess before the incision and drainage. Abscess appeared subcutaneous Charges/Coding Multi Select Codes Visit Charges Office Visit/Consults: 16500 IP Consult L3
[2024-12-10 12:18] LABS: Bedside Glucose 360 mg/dL (74-106)
[2024-12-10] MEDS: 0.9% Normal Saline (1000mL) 1,000 ML 75 ML IV (13:35)
[2024-12-10] MEDS: Zinc Sulfate 50 mg zinc (220 mg) ORAL capsule PO (13:36)
[2024-12-10] MEDS: Pantoprazole Sodium 40 MG Tablet PO (13:36)
[2024-12-10] MEDS: Losartan Potassium 50 MG Tablet PO ×2 (13:37→22:35)
[2024-12-10] MEDS: lamoTRIgine 150 MG Tablet PO (13:37)
[2024-12-10] MEDS: Ferrous Sulfate 325 MG Tablet PO (13:38)
[2024-12-10] MEDS: Carvedilol 12.5 MG Tablet PO (13:38)
[2024-12-10] MEDS: Magnesium Chloride 64 MG Delay Rel.Tablet 128 MG PO (13:38)
[2024-12-10] MEDS: Ascorbic Acid 500 MG Tablet 1000 MG PO (13:39)
[2024-12-10] MEDS: Loratadine 10 MG Tablet PO (13:39)
[2024-12-10] MEDS: Lactobacillis Acidophilus 1 CAP PO (13:39)
[2024-12-10] MEDS: amLODIPine 10 MG Tablet PO (13:40)
--- NOTE | 2024-12-10 13:51 | PCM.CONS.GEN ---
Assessment & Plan Assessment/Plan (1) Abscess of axilla, left: (2) Hyperglycemia due to diabetes mellitus: (3) History of hidradenitis suppurativa: (4) Sepsis: QUALIFIERS: Sepsis type: sepsis due to unspecified organism Sepsis acute organ dysfunction status: without acute organ dysfunction Qualified Code(s): A41.9 - Sepsis, unspecified organism PLAN: sepsis due to axillary abscess - for half-way prevention will need glucose control, weight loss, and derm eval as outpt. Will cover with vanc/ceftriaxone/flagyl for now. Will follow, thank you HPI Consult Data Date of Consult: 12/10/24 HPI Narrative Reason for Consultation: abscess HPI Narrative: CLAYTON PALM, is a 39 F with hidradenitis, obesity, uncontrolled DM, remote h/o cdiff, presented with one week progressive bilat axillary abscess. Had I&D done of R side a week ago, L side worsened, came to ED 12/08 for I&D of L, given clinda, sx progressed with fever, chills, pain, redness, nausea. Admitted on vanc/clinda. Full ROS performed and neg except as noted above. 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 Obesity Open wound of vulva Hemoglobin A1c greater than 9.0% Vulvar abscess History of necrotising fasciitis Fibromyalgia Anxiety and depression History of venous thromboembolism Polycystic ovary Bipolar disorder Hydradenitis Medical History no medical history Home Medications ?Medication ?Instructions ?Recorded ?Last Taken ?Type biotin 1 mg capsule 1 mg PO DAILY supplement 01/06/22 Unknown History lactobacillus combination no.9 4 4,000 mmu cells PO DAILY supplement 01/06/22 09/16/24 History billion cell capsule (Adult 50 Plus Probiotic) flash glucose scanning reader #1 ea 01/30/23 Unknown Rx (FreeStyle Chirag 2 [place]) flash glucose sensor (FreeStyle #2 ea 01/30/23 Unknown Rx Chirag 2 Sensor kit) loratadine 10 mg tablet 10 mg PO DAILY allergies #90 tabs 01/30/23 09/16/24 Rx metformin 500 mg tablet 1,000 mg (2 x 500 mg) PO BIDCM 01/30/23 09/17/24 Rx diabetes #90 tabs omeprazole 40 mg capsule,delayed 40 mg PO DAILY GERD #90 caps 01/30/23 09/16/24 Rx release insulin lispro 100 unit/mL 14 unit subcut TIDCM PRN diabetes 11/14/23 09/16/24 History subcutaneous pen (Humalog KwikPen (U-100) Insulin) albuterol sulfate 90 mcg/actuation 2 puff inhalation Q4H PRN sob 06/08/24 Unknown History aerosol inhaler pregabalin 150 mg capsule 150 mg PO TID pain 06/08/24 09/16/24 History losartan 50 mg tablet 50 mg PO BID blood pressure 08/13/24 09/17/24 History alpha lipoic acid 200 mg capsule 200 mg PO TID supplement 09/17/24 09/17/24 History calcium carbonate 600 mg PO DAILY supplement 09/17/24 09/16/24 History cholecalciferol (vitamin D3) 10 10 mcg PO DAILY vitamin 09/17/24 09/16/24 History mcg (400 unit) capsule (Vitamin D3) ferrous sulfate 325 mg (65 mg 325 mg PO DAILY supplement 09/17/24 09/16/24 History iron) tablet (Feosol) magnesium 1 tab PO DAILY supplement 09/17/24 09/16/24 History mecobalamin (vitamin B12) 1,000 1,000 mcg PO DAILY vitamin 09/17/24 09/16/24 History mcg chewable tablet potassium gluconate 600 mg (99 mg) 600 mg PO DAILY supplement 09/17/24 09/16/24 History tablet amlodipine 10 mg tablet 10 mg PO DAILY #30 tabs 09/18/24 Unknown Rx atorvastatin 80 mg tablet 80 mg PO QHS #30 tabs 09/18/24 Unknown Rx furosemide 40 mg tablet 40 mg PO BID #60 tabs 09/18/24 Unknown Rx carvedilol 6.25 mg tablet 12.5 mg PO BID 12/08/24 Unknown History oxycodone-acetaminophen 5 mg-325 1 tab PO Q8H PRN pain 3 days #10 12/08/24 Unknown Rx mg tablet (Percocet) tabs dulaglutide 0.75 mg/0.5 mL 0.75 mg subcut QWEEK 12/09/24 Unknown History subcutaneous pen injector (Trulicity) hydrochlorothiazide 12.5 mg tablet 12.5 mg PO DAILY 12/09/24 Unknown History insulin glargine-yfgn 100 unit/mL 44 unit subcut BID 12/09/24 Unknown History (3 mL) subcutaneous pen lamotrigine 150 mg tablet 150 mg PO DAILY 12/09/24 Unknown History nystatin 100,000 unit/gram topical 1 applic topical BID PRN rash 12/09/24 Unknown History powder olanzapine 2.5 mg tablet 1.25 mg PO QHS 12/09/24 Unknown History prazosin 2 mg capsule 2 mg PO QHS 12/09/24 Unknown History Allergy/AdvReac Type Severity Reaction Status Date / Time doxycycline Allergy Severe rash Verified 12/09/24 21:26 amoxicillin (Amoxicillin) Allergy Unknown Verified 12/09/24 21:26 asenapine maleate (From Allergy Unknown Verified 12/09/24 21:26 Saphris) cephalexin AdvReac Intermediate upset Verified 12/09/24 21:26 stomach sulfamethoxazole (From AdvReac Upset Verified 12/09/24 21:26 Bactrim) Stomach trimethoprim (From Bactrim) AdvReac Upset Verified 12/09/24 21:26 Stomach Family History Mother Hypertension Brain aneurysm Father Diabetes Hypertension Grandmother Cancer liver throat kidney Diabetes Hypertension Heart disease CVA (cerebral vascular accident) Breast cancer Grandfather Kidney disease Hypertension CVA (cerebral vascular accident) Family History no significant family his Surgical History H/O lateral meniscus repair of left knee Surgical History no surgical history Social History household members: spouse Smoking Status: Current every day smoker tobacco type: e-cigarettes alcohol intake: never substance use type: does not use caffeine: Yes frequency: 5-6 times per week seatbelt use: always do you feel safe at home: Yes additional social history: Jonathan- Unemployed Patient is on disability Physical Exam Const alert, oriented x3 and no apparent distress General Appearance: cooperative HEENT normocephalic and head/scalp atraumatic Eyes PERRL and EOMs intact bilaterally Neck supple and No nodes Resp normal air movement and clear to auscultation bilaterally Cardio regular rate and regular rhythm GI soft to palpation, non-tender and non-distended Extremity General Extremity: edema Skin Skin Narrative: reviewed wound photos Neuro CN's II-XII intact bilaterally Lab / Micro Data Attestation: I reviewed the patient's lab results. 12/10/24 03:26 12/10/24 03:26 Labs: Laboratory Results - last 24 hr 12/09/24 02:55: Urine Color Yellow, Urine Clarity Sl. Cloudy, Urine pH 6.0, Ur Specific [place] 1.015, Urine Protein 100 H, Urine Glucose (UA) 1000 H, Urine Ketones Negative, Urine Occult Blood 250 H, Urine Nitrite Negative, Urine Bilirubin Negative, Urine Urobilinogen Normal, Ur Leukocyte Esterase 500 H, Urine RBC 10-25 SEEN, Urine WBC 50-100 SEEN, Ur Squamous Epith Cells 0-5 SEEN, Ur Renal Epithelial Cell 0-5 SEEN, Urine Bacteria 2+, Urine Mucus 0 SEEN 12/09/24 21:49: WBC Cancelled, Corrected WBC Cancelled, RBC Cancelled, Hgb Cancelled, Hct Cancelled, MCV Cancelled, MCH Cancelled, MCHC Cancelled, RDW Std Deviation Cancelled, RDW Coeff of Amada Cancelled, Plt Count Cancelled, MPV Cancelled, Immature Gran % (Auto) Cancelled, Neut % (Auto) Cancelled, Lymph % (Auto) Cancelled, [place] % (Auto) Cancelled, Eos % (Auto) Cancelled, Baso % (Auto) Cancelled, Absolute Neuts (auto) Cancelled, Absolute Lymphs (auto) Cancelled, Total Counted Cancelled, Neutrophils % (Manual) Cancelled, Band Neutrophils % Cancelled, Lymphocytes % (Manual) Cancelled, Monocytes % (Manual) Cancelled, Eosinophils % (Manual) Cancelled, Basophils % (Manual) Cancelled, Metamyelocytes % Cancelled, Myelocytes % Cancelled, Promyelocytes % Cancelled, Blast Cells % Cancelled, Plasma Cell % (Manual) Cancelled, Other Cells % Cancelled, Nucleated RBC % Cancelled, Nucleated RBCs/100 WBC Cancelled, Differential Comment Cancelled, Diff Path Review Cancelled, Hypersegmented Neuts Cancelled, Atypical Lymphocytes Cancelled, Reactive Lymphocytes Cancelled, Smudge Cells Cancelled, Toxic Granulation Cancelled, Toxic Vacuolation Cancelled, Dohle Bodies Cancelled, Sara Rods Cancelled, Platelet Estimate Cancelled, Plt Morphology Comment Cancelled, RBC Morphology Cancelled 12/09/24 21:49: RBC Morphology Cancelled, Polychromasia Cancelled, Hypochromasia Cancelled, Basophilic Stippling Cancelled, Anisocytosis Cancelled, Microcytosis Cancelled, Macrocytosis Cancelled, Spherocytes Cancelled, Sickle Cells Cancelled, Target Cells Cancelled, Tear Drop Cells Cancelled, Ovalocytes Cancelled, Stomatocytes Cancelled, Ramon-Lavina Bodies Cancelled, Edwards Cells Cancelled, Bite Cells Cancelled, Crenated Cell Cancelled, Acanthocytes (Spur) Cancelled, Rouleaux Cancelled, Schistocytes Cancelled, Sodium 128 L, Potassium 4.4, Chloride 94 L, Carbon Dioxide 22.2, Anion Gap 11, BUN 23 H, Creatinine 1.27 H, Estim Creat Clear Calc 85.04, Est GFR (MDRD) Non-Af 54 L, BUN/Creatinine Ratio 17.9, Glucose 634 H*, Calcium 8.3, Magnesium 2.0, b-Hydroxybutyric mmol/L 0.1, TSH 1.960 12/09/24 22:04: Lactic Acid 3.5 H* 12/09/24 22:31: WBC 5.0, RBC 3.61 L, Hgb 10.1 L, Hct 30.2 L, MCV 83.7, MCH 28.0, MCHC 33.4, RDW Std Deviation 43.1, RDW Coeff of Amada 14.1, Plt Count 148 L, MPV 12.4 H, Immature Gran % (Auto) 0.400, Neut % (Auto) 71.0 H, Lymph % (Auto) 15.5 L, [place] % (Auto) 9.7, Eos % (Auto) 2.6, Baso % (Auto) 0.8, Absolute Neuts (auto) 3.5, Absolute Lymphs (auto) 0.77 L, Nucleated RBC % 0, Hemoglobin A1c 14.4 H 12/09/24 23:29: Lactic Acid 1.6 12/09/24 23:37: POC Glucose 498 H* 12/10/24 02:55: Urine Test Negative, Urine Opiates Screen NEGATIVE, U Buprenorphine Qual NEGATIVE, Ur Oxycodone Screen PRESUMPTIVE POSITIVE, Urine Methadone Screen NEGATIVE, Urine Fentanyl Screen NEGATIVE, Ur Barbiturates Screen NEGATIVE, Ur Phencyclidine Scrn NEGATIVE, Ur Amphetamines Screen NEGATIVE, U Benzodiazepines Scrn NEGATIVE, Urine Cocaine Screen NEGATIVE, U Cannabinoids Screen NEGATIVE 12/10/24 02:59: POC Glucose 236 H 12/10/24 03:26: WBC 5.8, RBC 3.58 L, Hgb 10.1 L, Hct 29.8 L, MCV 83.2, MCH 28.2, MCHC 33.9, RDW Std Deviation 43.1, RDW Coeff of Amada 14.0, Plt Count 168, MPV 12.1 H, Immature Gran % (Auto) 0.500, Neut % (Auto) 60.7, Lymph % (Auto) 22.4, [place] % (Auto) 12.4 H, Eos % (Auto) 3.3, Baso % (Auto) 0.7, Absolute Neuts (auto) 3.5, Absolute Lymphs (auto) 1.30, Nucleated RBC % 0, Sodium 132 L, Potassium 4.2, Chloride 99, Carbon Dioxide 25.4, Anion Gap 8, BUN 21 H, Creatinine 1.08, Estim Creat Clear Calc 99.97, Est GFR (MDRD) Non-Af 66, BUN/Creatinine Ratio 19.5, Glucose 249 H, Lactic Acid 1.2, Calcium 8.5, Phosphorus 2.6 L, Total Bilirubin 0.46, AST 29, ALT 52 H, Alkaline Phosphatase 124 H, Total Protein 6.4, Albumin 3.2 L, Globulin 3.2, Albumin/Globulin Ratio 1.0 12/10/24 05:55: S.aureus Protein A PCR POSITIVE H, MRSA (PCR) POSITIVE H 12/10/24 07:08: POC Glucose 255 H 12/10/24 11:25: POC Glucose 360 H
--- NOTE | 2024-12-10 14:05 | NURSING ---
1430 scheduled vanc not available at this time
[2024-12-10] MEDS: Ceftriaxone 2 GM in 0.9% Normal Saline (50mL MB+) 50 ML IV (15:25)
[2024-12-10] MEDS: metroNIDAZOLE 500 MG Tablet PO ×2 (15:26→22:35)
--- NOTE | 2024-12-10 16:11 | CASEMGMT ---
Social Work SW received call from Lenora Reilly, [facility] Home Donor Specialist. Pt currently has waiver services including meals on wheels and life line. Pt qualifies for private duty aids, but this has not been set up yet. ANTONIO to notify Lenora when pt is discharged. MIRYAM Alejandro
[2024-12-10 17:27] LABS: Bedside Glucose 409 mg/dL (74-106)
[2024-12-10] MEDS: Atorvastatin Calcium 80 MG Tablet PO (22:35)
[2024-12-10] MEDS: Prazosin HCl 1 MG Capsule 2 MG PO (22:35)
[2024-12-10] MEDS: OLANZapine 2.5 MG Tablet 1.25 MG PO (22:35)
[2024-12-10] MEDS: Insulin Glargine-YFGN 100 UNIT/ML Pen 50 UNIT SC (22:40)
[2024-12-10 23:08] LABS: Bedside Glucose 309 mg/dL (74-106)
[2024-12-11] VITALS (7 sets, daily range): BP systolic 124–163; BP diastolic 61–78; PULSE 84–90; RESP 16–18; TEMP 36.7–37; O2SAT 95–98; BMI 44.0
[2024-12-11] MEDS: Vancomycin HCl 2,000 MG in 0.9% Normal Saline (500mL Bag) 500 ML 250 MG IV (02:43)
[2024-12-11] MEDS: 0.9% Saline Lock 10 ML Syringe IV (02:43)
[2024-12-11] MEDS: Acetaminophen 325 MG Tablet 650 MG PO ×2 (02:52→23:24)
[2024-12-11] MEDS: metroNIDAZOLE 500 MG Tablet PO ×3 (05:05→20:46)
[2024-12-11] MEDS: oxyCODONE 5 MG Tablet PO (05:05)
[2024-12-11] MEDS: Pregabalin 75 MG Capsule 150 MG PO ×3 (05:05→20:46)
[2024-12-11] MEDS: Insulin Lispro 100 UNIT/ML INSULN.PEN SC ×4 (06:22→20:44)
[2024-12-11 07:02] LABS: Absolute Lymphocyte Count 1.15 X10^3/uL (0.83-4.51); Basophil# 0.03 X10^3/uL; Basophil% 0.6 % (0-1); Eosinophil# 0.27 X10^3/uL; Eosinophils% 5.5 % (0-5); Hematocrit 28.3 % (37-47); Hemoglobin 9.2 g/dL (12.0-15.0); Lymphocyte # 1.15 X10^3/ul (0.83-4.51); Lymphocyte % 23.3 % (19-41); Mean Corp Hgb Conc 32.5 g/dL (32-36); Mean Corpuscular Hgb 27.7 pg (27.0-32.0); Mean Corpuscular Volume 85.2 fL (81-99); Mean Platelet Vol. 12.2 fl (6.2-12.0); Monocyte% 10.1 % (0-10); NRBC Flagged by Analyzer 0 % (0-5); Neutrophil # 2.97 X10^3/uL (2.7-7.7); Neutrophil % 60.1 % (47-70); Platelet Count 141 K/mm3 (150-450); RBC Distribution Width SD 43.6 fl (35.1-43.9); Red Blood Count 3.32 M/mm3 (4.2-5.4); White Blood Count 4.9 K/mm3 (4.4-11.0)
[2024-12-11 07:14] LABS: Bedside Glucose 324 mg/dL (74-106)
--- NOTE | 2024-12-11 07:36 | PCM.PN.SRG ---
Subjective Subjective Doing well. No fevers or chills overnight Objective Data Objective Data Vital Signs: Vital Signs Temp Pulse Resp BP Pulse Ox O2 Del Method 98.1 F 86 18 163/78 H 96 Room Air 12/11/24 02:35 12/11/24 02:35 12/11/24 02:35 12/11/24 02:35 12/11/24 02:35 12/11/24 02:35 Oxygen Delivery Method Room Air Weight: 297 lb 9.985 oz Body Mass Index (BMI) 44.0 Intake & Output: Intake and Output for Last 24 Hours 12/09/24 12/10/24 12/11/24 23:59 23:59 23:59 Intake Total 50 / 50 4351.67 / 4351.67 2540 / 2540 Output Total 300 / 300 Balance 50 / 50 4051.67 / 4051.67 2540 / 2540 Lab / Micro Data 12/11/24 06:06 12/10/24 03:26 Labs: Laboratory Results - last 24 hr 12/10/24 05:55: S.aureus Protein A PCR POSITIVE H, MRSA (PCR) POSITIVE H 12/10/24 11:25: POC Glucose 360 H 12/10/24 17:07: POC Glucose 409 H 12/10/24 22:38: POC Glucose 309 H 12/11/24 06:06: WBC 4.9, RBC 3.32 L, Hgb 9.2 L, Hct 28.3 L, MCV 85.2, MCH 27.7, MCHC 32.5, RDW Std Deviation 43.6, RDW Coeff of Amada 14.0, Plt Count 141 L, MPV 12.2 H, Immature Gran % (Auto) 0.400, Neut % (Auto) 60.1, Lymph % (Auto) 23.3, Sac % (Auto) 10.1 H, Eos % (Auto) 5.5 H, Baso % (Auto) 0.6, Absolute Neuts (auto) 3.0, Absolute Lymphs (auto) 1.15, Nucleated RBC % 0 12/11/24 06:21: POC Glucose 324 H Micro: Microbiology 12/10/24 05:55 Wound - Axilla, Left Gram Stain - Final Physical Exam Narrative Left axilla: packing removed and replaced. Minimal drainage. Right axilla: Armpit crease wound approximately 1 x 4 cm with healthy granulation tissue at the base. No drainage Assessment & Plan Assessment/Plan (1) History of hidradenitis suppurativa: (2) Abscess of axilla, left: PLAN: Plan Agree with continued packing of the right and left axilla with iodoform daily and treatment with antibiotics per infectious disease. Agree with tight blood glucose control Agree with mammogram in the setting of age over 40, but especially in the setting of a right breast lump and axillary wounds/drainage Also agree with referral to dermatology for medical maintenance of the hidradenitis Recommend continued outpatient follow-up with Dr. Caraballo for the surgical management of the hidradenitis Plastic surgery will sign off at this time Charges/Coding Visit Charges Inpatient E&M: 38400 [facility] Hosp L1
[2024-12-11 07:41] LABS: Anion Gap 9 (5-15); BUN 18 mg/dL (4-19); Carbon Dioxide 23.2 mmol/L (21.0-32.0); Chloride 101 mmol/L (98-108); Creatinine, Serum 1.06 mg/dL (0.70-1.20); EST Glomerular Filtration Rate 68 (>60); Estimated Creatinine Clearance 103.34 ml/min (50-250); Glucose 325 mg/dL (70-99); Phosphorus 3.1 mg/dL (2.7-4.5); Potassium 4.3 mmol/L (3.3-5.1); Sodium Level 133 mmol/L (133-145)
[2024-12-11] MEDS: Zinc Sulfate 50 mg zinc (220 mg) ORAL capsule PO (10:01)
[2024-12-11] MEDS: Pantoprazole Sodium 40 MG Tablet PO (10:01)
[2024-12-11] MEDS: lamoTRIgine 150 MG Tablet PO (10:01)
[2024-12-11] MEDS: Loratadine 10 MG Tablet PO (10:01)
[2024-12-11] MEDS: Losartan Potassium 50 MG Tablet PO ×2 (10:01→20:45)
[2024-12-11] MEDS: Carvedilol 12.5 MG Tablet PO ×2 (10:01→16:25)
[2024-12-11] MEDS: Lactobacillis Acidophilus 1 CAP PO (10:01)
[2024-12-11] MEDS: Furosemide 40 MG Tablet PO (10:01)
[2024-12-11] MEDS: Cyanocobalamin 500 MCG Tablet 1000 MCG PO (10:02)
[2024-12-11] MEDS: Ascorbic Acid 500 MG Tablet 1000 MG PO ×2 (10:02→16:25)
[2024-12-11] MEDS: Magnesium Chloride 64 MG Delay Rel.Tablet 128 MG PO (10:02)
[2024-12-11] MEDS: Calcium (Elemental) 500 MG Tablet PO (10:02)
[2024-12-11] MEDS: amLODIPine 10 MG Tablet PO (10:02)
[2024-12-11] MEDS: Ceftriaxone 2 GM in 0.9% Normal Saline (50mL MB+) 50 ML IV (10:03)
[2024-12-11] MEDS: Enoxaparin 40 MG/0.4 ML Syringe SC ×2 (10:11→20:56)
[2024-12-11] MEDS: Insulin Glargine-YFGN 100 UNIT/ML Pen 50 UNIT SC (10:16)
--- NOTE | 2024-12-11 10:40 | PN.ID_ITS ---
Physical Exam Narrative Feeling a little better, axillae less tender. No fever. Some nausea this AM. Const alert and no apparent distress Resp normal air movement and clear to auscultation bilaterally Cardio regular rate and regular rhythm GI soft to palpation, non-tender and non-distended Skin Skin Narrative: some improved swelling/redness ID ID: Route of nutrition/ use of supplements: [] Nutritional Intake: [] IV Site: [] [place] Catheter: [] Assessment & Plan Assessment/Plan (1) Abscess of axilla, left: (2) Hyperglycemia due to diabetes mellitus: (3) History of hidradenitis suppurativa: (4) Sepsis: QUALIFIERS: Sepsis type: sepsis due to unspecified organism Sepsis acute organ dysfunction status: without acute organ dysfunction Qualified Code(s): A41.9 - Sepsis, unspecified organism PLAN: sepsis due to axillary abscess - for intermediate prevention will need glucose control, weight loss, and derm eval as outpt. Will cover with vanc/ceftriaxone/flagyl for now. Improving, plan on po abx at discharge. Will follow, d/w Dr. Beckman
[2024-12-11 10:48] LABS: Bedside Glucose 303 mg/dL (74-106)
--- NOTE | 2024-12-11 11:14 | PN.HOSP_ITS ---
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 (12/09/24) Personal history of Methicillin resistant Staphylococcus aureus infection (12/09/24) Personal history of diseases of the skin and subcutaneous tissue (12/09/24) Patient's noncompliance with other medical treatment and regimen due to unspecified reason (12/09/24) Objective Data Objective Data Vital Signs: Vital Signs Temp Pulse Resp BP Pulse Ox O2 Del Method 98.4 F 90 18 124/61 H 98 Room Air 12/11/24 09:57 12/11/24 09:57 12/11/24 09:57 12/11/24 09:57 12/11/24 09:57 12/11/24 10:19 Oxygen Delivery Method Room Air Weight: 297 lb 9.985 oz Body Mass Index (BMI) 44.0 Intake & Output: Intake and Output for Last 24 Hours 12/09/24 12/10/24 12/11/24 23:59 23:59 23:59 Intake Total 50 / 50 4351.67 / 4351.67 2540 / 2540 Output Total 300 / 300 Balance 50 / 50 4051.67 / 4051.67 2540 / 2540 Lab / Micro Data 12/11/24 06:06 12/11/24 06:06 Labs: Laboratory Results - last 24 hr 12/10/24 11:25: POC Glucose 360 H 12/10/24 17:07: POC Glucose 409 H 12/10/24 22:38: POC Glucose 309 H 12/11/24 06:06: WBC 4.9, RBC 3.32 L, Hgb 9.2 L, Hct 28.3 L, MCV 85.2, MCH 27.7, MCHC 32.5, RDW Std Deviation 43.6, RDW Coeff of Amada 14.0, Plt Count 141 L, MPV 12.2 H, Immature Gran % (Auto) 0.400, Neut % (Auto) 60.1, Lymph % (Auto) 23.3, M bo % (Auto) 10.1 H, Eos % (Auto) 5.5 H, Baso % (Auto) 0.6, Absolute Neuts (auto) 3.0, Absolute Lymphs (auto) 1.15, Nucleated RBC % 0, Sodium 133, Potassium 4.3, Chloride 101, Carbon Dioxide 23.2, Anion Gap 9, BUN 18, Creatinine 1.06, Estim Creat Clear Calc 103.34, Est GFR (MDRD) Non-Af 68, BUN/Creatinine Ratio 17.0, Glucose 325 H, Calcium 8.0, Phosphorus 3.1 12/11/24 06:21: POC Glucose 324 H 12/11/24 10:15: POC Glucose 303 H Micro: Microbiology 12/10/24 05:55 Wound - Axilla, Left Gram Stain - Final 12/10/24 05:55 Wound - Axilla, Left Wound Culture - Preliminary Staphylococcus aureus Physical Exam Narrative 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 Patient has a history of MRSA hidradenitis. She had right axillary region drained by Dr. Jun Caraballo probably about 5 days to 1 week ago and then left axillary region drained in ED. Patient also had fever 101 Fahrenheit yesterday. Physical exam General: Alert, Oriented x3, Cooperative. Morbid obesity BMI 45.1 kg/m? HEENT: Atraumatic, PERRLA, EOMI, Normocephalic. Oral: No Gingival or Mucosal Lesions/ Ulcerations Neck: Supple, No JVD, Negative Carotid Bruits Chest wall/Lungs: Air entry diminished in bilateral lung bases. No crepitation/rhonchi Cardiovascular: Regular rate and rhythm, Normal S1,S2, No M/G/R Abdomen: Bowel Sounds Present, Soft, Non Tender, Non-Distended : No dysuria. No renal angle tenderness. No suprapubic tenderness. Extremities: No edema, Capillary Refill Less than 3 Seconds Skin: Dressing present on right and left axillary. Old scar tissue and subcutaneous fibrosis and induration around bilateral axillary area Musculoskeletal: No Tenderness to Palpation of Joints or Extremities. ROM restricted Neurological: Cranial nerves II-XII grossly intact, DTR 2+/4. No acute focal neurological deficit. 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 Patient also had nausea and vomiting. Blood sugar was high at 8600. 1. Infected hidradenitis suppurativa with bilateral abscesses, recently drained with fever: Patient wound MRSA screen is positive. Continue IV antibiotics vancomycin and clindamycin. Plastic surgeon consulted. Wound culture shows 4+ WBC, rare GPC. Will consult ID. Patient is also chronic smoker advised to quit. This worsens hidradenitis suppurativa healing. 12/11: Discussed with ID. Continue IV antibiotics Vanco, ceftriaxone and Flagyl. Will need long-term antibiotic but planning for oral antibiotic at the time of discharge. No plan for debridement as per plastic surgeon but continued packing of axillary and tight control of glucose. 2. DM type II with uncontrolled hyperglycemia: A1c 14.4% this admission: Patient on metformin, dulaglutide, insulin glargine 38 securities twice daily and lispro 10 units subcu 3 times daily. Accu-Chek before meals and at bedtime with Humalog sliding scale coverage and hypoglycemia protocol. Monitor glucose and titrate accordingly. 3. Morbid obesity; with BMI of 45.3 KG per square meter weight loss counseling done. Patient is also chronically smoker 4. Essential hypertension; on amlodipine, losartan, carvedilol twice daily and furosemide twice daily -BP 145/76, it was high at the time of admission. decrease the dose of furosemide from twice daily to once daily. Hyperlipidemia; on atorvastatin -statin resumed Chronic comorbidities includes fibromyalgia, seizure on lamotrigine, bipolar disorder on olanzapine. Tentative diagnosis of Multiple Sclerosis; with multiple plaques noted on brain and spinal cord and treatment yet to be initiated -follow-up outpatient DVT prophylaxis - Enoxaparin 40 mg sq BID. Charges/Coding Visit Charges Inpatient E&M: 09345 Subs Hosp L2
[2024-12-11 12:20] LABS: Bedside Glucose 296 mg/dL (74-106)
[2024-12-11] MEDS: Ferrous Sulfate 325 MG Tablet PO (12:38)
--- NOTE | 2024-12-11 15:03 | CASEMGMT ---
Addendum entered by Donna Valero 12/11/24 15:13: Requested nurse notify in handoff that pt to come in tomorrow to perform dressing change. Jud at [facility] aware of this and MIRIAM KATZ to notify of the outcome. Original Note: Received notification that [facility] can accept pt for SOC on Sunday if pt has an able cg to perform dressing changes. MIRIAM KATZ into pt room, pt lying in bed with at bedside. Pt states is not sure he can do dressing changes and she has no one else to learn. Pt willing to try tomorrow when dressing is changed. IMRIAM KATZ to call him tomorrow morning to notify of approx time of dressing change so he can be present.
[2024-12-11] MEDS: ALPRAZolam 0.25 MG Tablet PO ×2 (15:12→23:24)
--- NOTE | 2024-12-11 15:15 | WOUNDNOTE ---
Pt had stated this am that has assisted with the dressing changes at home in the past. states she has also packed the wounds herself. the left axilla and right axilla wounds are being packed daily.
--- NOTE | 2024-12-11 15:47 | PCM.RX.CS ---
Consult Antibiotic Management Pharmacy has been consulted to manage selected antibiotic: Vancomycin Type of Intervention Type of Consult: Follow-up Suspected Infection Suspected Infection: Skin/Soft tissue Prior Doses of Antibiotics Prior Doses of Antibiotics Received/Current Regimen: Vancomycin 2000 mg Q12H last dose given 12/11/24 @ 0243 Labs Labs: Sodium 133 mmol/L (133-145) 12/11/24 06:06 Potassium 4.3 mmol/L (3.3-5.1) 12/11/24 06:06 Chloride 101 mmol/L (98-108) 12/11/24 06:06 Carbon Dioxide 23.2 mmol/L (21.0-32.0) 12/11/24 06:06 Anion Gap 9 (5-15) 12/11/24 06:06 BUN 18 mg/dL (4-19) 12/11/24 06:06 Creatinine 1.06 mg/dL (0.70-1.20) 12/11/24 06:06 Est GFR (MDRD) Non-Af 68 (>60) 12/11/24 06:06 BUN/Creatinine Ratio 17.0 RATIO (10-20) 12/11/24 06:06 Glucose 325 mg/dL (70-99) H 12/11/24 06:06 Vancomycin Trough 21.0 ug/mL (5.0-15.0) H 12/11/24 14:40 Microbiology Microbiology: Microbiology 12/10/24 05:55 Wound - Axilla, Left Gram Stain - Final 12/10/24 05:55 Wound - Axilla, Left Wound Culture - Preliminary Staphylococcus aureus Dosing Weight Weight used for dosin kg Estimated Creatinine Clearance Estimated Creatinine Clearance: ~ 103 Goal Trough Goal Trough: 15-20 mcg/mL Pharmacy Plan for Drug Dosing Pharmacy Plan for Drug Dosing: Vancomycin trough = 21.0, hold dose, random in AM, further dosing based on random level Pharmacy Service will continue to monitor and adjust dosing as required. Follow-Up Labs Follow-Up Labs: Trough: Vancomycin Date/Time Labs Ordered Labs to be done on [date and time ordered]: 12/12/24 @ 0600
[2024-12-11 16:46] LABS: Bedside Glucose 453 mg/dL (74-106)
[2024-12-11] MEDS: Insulin Glargine-YFGN 100 UNIT/ML Pen 60 UNIT SC (20:43)
[2024-12-11] MEDS: Prazosin HCl 1 MG Capsule 2 MG PO (20:44)
[2024-12-11 20:45] LABS: Bedside Glucose 447 mg/dL (74-106)
[2024-12-11] MEDS: OLANZapine 2.5 MG Tablet 1.25 MG PO (20:45)
[2024-12-11] MEDS: Atorvastatin Calcium 80 MG Tablet PO (20:45)
[2024-12-11] MEDS: Ondansetron 4 MG/2 ML Vial IV (23:23)
[2024-12-12] MEDS: Pregabalin 75 MG Capsule 150 MG PO (05:09)
[2024-12-12] MEDS: metroNIDAZOLE 500 MG Tablet PO (05:09)
[2024-12-12 05:12] VITALS: BP 156/83; PULSE 86; RESP 16; TEMP 36.7; O2SAT 94
[2024-12-12 06:00] VITALS: BMI 44.0
[2024-12-12] MEDS: Insulin Lispro 100 UNIT/ML INSULN.PEN SC (06:00)
[2024-12-12 06:19] LABS: Bedside Glucose 332 mg/dL (74-106)
[2024-12-12 07:07] LABS: Absolute Lymphocyte Count 1.15 X10^3/uL (0.83-4.51); Basophil# 0.03 X10^3/uL; Basophil% 0.6 % (0-1); Eosinophil# 0.26 X10^3/uL; Eosinophils% 5.3 % (0-5); Hematocrit 28.6 % (37-47); Hemoglobin 9.5 g/dL (12.0-15.0); Lymphocyte # 1.15 X10^3/ul (0.83-4.51); Lymphocyte % 23.6 % (19-41); Mean Corp Hgb Conc 33.2 g/dL (32-36); Mean Corpuscular Hgb 27.9 pg (27.0-32.0); Mean Corpuscular Volume 84.1 fL (81-99); Mean Platelet Vol. 12.6 fl (6.2-12.0); Monocyte# 0.46 X10^3/uL; Monocyte% 9.4 % (0-10); NRBC Flagged by Analyzer 0 % (0-5); Neutrophil # 2.95 X10^3/uL (2.7-7.7); Neutrophil % 60.5 % (47-70); Platelet Count 163 K/mm3 (150-450); RBC Distribution Width CV 13.9 % (11.6-14.6); RBC Distribution Width SD 42.7 fl (35.1-43.9); White Blood Count 4.9 K/mm3 (4.4-11.0)
[2024-12-12 07:21] VITALS: PULSE 84
[2024-12-12 07:38] LABS: Anion Gap 8 (5-15); BUN 19 mg/dL (4-19); BUN/Creat Ratio 17.5 RATIO (10-20); Calcium,Total 8.3 mg/dL (7.6-11.0); Carbon Dioxide 22.4 mmol/L (21.0-32.0); Chloride 103 mmol/L (98-108); EST Glomerular Filtration Rate 65 (>60); Estimated Creatinine Clearance 99.58 ml/min (50-250); Glucose 348 mg/dL (70-99); Potassium 4.2 mmol/L (3.3-5.1); Sodium Level 133 mmol/L (133-145)
[2024-12-12 07:49] LABS: Vancomycin, Random Level 10.4 ug/mL (0.0-15.0)
--- NOTE | 2024-12-12 08:05 | CPS ---
Attempted to do SMI and Pep but pt sleeping. RX held at this time.
--- NOTE | 2024-12-12 08:12 | PCM.RX.CS ---
Consult Antibiotic Management Pharmacy has been consulted to manage selected antibiotic: Vancomycin Type of Intervention Type of Consult: Follow-up Suspected Infection Suspected Infection: Skin/Soft tissue Labs Labs: Sodium 133 mmol/L (133-145) 12/12/24 06:05 Potassium 4.2 mmol/L (3.3-5.1) 12/12/24 06:05 Chloride 103 mmol/L (98-108) 12/12/24 06:05 Carbon Dioxide 22.4 mmol/L (21.0-32.0) 12/12/24 06:05 Anion Gap 8 (5-15) 12/12/24 06:05 BUN 19 mg/dL (4-19) 12/12/24 06:05 Creatinine 1.10 mg/dL (0.70-1.20) 12/12/24 06:05 Est GFR (MDRD) Non-Af 65 (>60) 12/12/24 06:05 BUN/Creatinine Ratio 17.5 RATIO (10-20) 12/12/24 06:05 Glucose 348 mg/dL (70-99) H 12/12/24 06:05 Vancomycin Trough 21.0 ug/mL (5.0-15.0) H 12/11/24 14:40 Random Vancomycin 10.4 ug/mL (0.0-15.0) 12/12/24 06:05 Microbiology Microbiology: Microbiology 12/09/24 22:06 Blood Culture (Wb) - Right Hand Blood Culture - Preliminary No growth in 48 hours. 12/09/24 22:04 Blood Culture (Wb) - Anticubital Left Blood Culture - Preliminary No growth in 48 hours. 12/10/24 05:55 Wound - Axilla, Left Gram Stain - Final 12/10/24 05:55 Wound - Axilla, Left Wound Culture - Preliminary Staphylococcus aureus Goal Trough Goal Trough: 15-20 mcg/mL Pharmacy Plan for Drug Dosing Pharmacy Plan for Drug Dosing: VANCOMYCIN LEVEL RECEIVED Current Vancomycin Dose: Currently on hold- last dose of 2g 12/11/24 @0243 Number of Doses Received: scheduled regimen on hold Vancomycin Level: 10.4 Hours Since Last Dose: 27.25hr Renal Function: 1.1 Renal Function Trend: stable Lab/Micro: WCx growing staph spp, no sensitivity data yet (Note: hx of MRSA 09/2024) Vancomycin Plan/Comments: Patient had a random trough drawn which resulted in a value of 10.4 (goal 15-20). Patient's trough is now below 20 so scheduled dosing can be resumed at this time. Will restart the patient on vancomycin 1000mg IV Q12hr 12/12/24 @0900. This will give a predicted trough value of 17 per vancomycin dosing calculator. Pending Level: 12/13/24 @2030, prior to 4th dose of scheduled regimen Pharmacy Service will continue to monitor and adjust dosing as required.
[2024-12-12] MEDS: Ascorbic Acid 500 MG Tablet 1000 MG PO (08:36)
[2024-12-12] MEDS: Carvedilol 12.5 MG Tablet PO (08:36)
[2024-12-12] MEDS: Vancomycin IV 1,000 MG/200 ML BAG 200 MG IV (08:42)
[2024-12-12 08:55] VITALS: BP 145/83; PULSE 84; RESP 16; TEMP 36.6; O2SAT 98
--- NOTE | 2024-12-12 09:05 | CASEMGMT ---
Addendum entered by Donna Valero 12/12/24 12:17: TC to [facility], pt linezolid did not have PA and has zero copay. Addendum entered by Donna Valero 12/12/24 11:05: Pt nurse states pt did own dressing change. TC to [facility], spoke with Jud, she is aware. Plan for SOC on Sunday. Pt updated. Original Note: Spoke with pt nurse who is aware pt is supposed to come in to do the dressing change. MIRIAM KATZ into pt room, pt states she cannot get ahold of her as he is still sleeping. She is contemplating trying to do the dressing change in the mirror herself. Pt aware that MIRIAM KATZ will notify HH once we know the outcome of the dressing change.
[2024-12-12] MEDS: Lactobacillis Acidophilus 1 CAP PO (10:17)
[2024-12-12] MEDS: Loratadine 10 MG Tablet PO (10:17)
[2024-12-12] MEDS: amLODIPine 10 MG Tablet PO (10:17)
[2024-12-12] MEDS: Magnesium Chloride 64 MG Delay Rel.Tablet 128 MG PO (10:18)
[2024-12-12] MEDS: Calcium (Elemental) 500 MG Tablet PO (10:18)
[2024-12-12] MEDS: Furosemide 40 MG Tablet PO (10:18)
[2024-12-12] MEDS: Pantoprazole Sodium 40 MG Tablet PO (10:18)
[2024-12-12] MEDS: lamoTRIgine 150 MG Tablet PO (10:18)
[2024-12-12] MEDS: Zinc Sulfate 50 mg zinc (220 mg) ORAL capsule PO (10:18)
[2024-12-12] MEDS: Cyanocobalamin 500 MCG Tablet 1000 MCG PO (10:18)
[2024-12-12] MEDS: Ceftriaxone 2 GM in 0.9% Normal Saline (50mL MB+) 50 ML IV (10:19)
[2024-12-12] MEDS: Losartan Potassium 50 MG Tablet PO (10:19)
[2024-12-12] MEDS: Enoxaparin 40 MG/0.4 ML Syringe SC (10:20)
[2024-12-12] MEDS: Insulin Glargine-YFGN 100 UNIT/ML Pen 60 UNIT SC (10:31)
--- NOTE | 2024-12-12 10:31 | DCINST_ITS ---
Discharge Instructions Diet Discharge Diet: Low fat / Low cholesterol, 1800 Calorie Control Diet and 2000 mg Sodium Diet DC O2, CPAP, BIPAP needs Home O2 Discharge instructions: No Dressing / Incision Discharge Activity: Return to Normal Activity Weight Bearing Status: Weight bearing as tolerated Dressing / Incision Call your doctor if you observe: Fever of 101 or Higher, Coldness, Increased Pain, Numbness or Tingling, Change in Color, Inability to urinate, Inability to have a bowel movement, Shortness of breath, Dizziness, Fainting spells, Swelling in the ankles, Chest pain, Prolonged hiccupping, Increased palpitations (irregular heartbeat) and Calf discomfort Follow Up Care When: IN 2 WEEKS Test Results: Test results from this visit will be discussed in further detail at your follow- up appointment, if applicable. Discharge Plan Admission Admit Date/Time: 12/09/24 23:13 Primary Reason for Your Visit: MRSA hidradenitis suppurativa Attending Provider: Viral Beckman Primary Care Provider: Nelly Michael Karl Consulting Providers: Reilly Weinstein; Carlos Byrd; Carlos Claudio Discharge Orders/Prescriptions Prescriptions: New nicotine 14 mg/24 hr Patch 24 Hour 14 mg transdermal DAILY 28 Days Qty: 28 0RF Continued Adult 50 Plus Probiotic 4 billion cell capsule 4,000 mmu cells PO DAILY (DME) FreeStyle Chirag 2 Sensor Kit See Rx Instructions .ROUTE .MEDSUPPLY Qty: 2 1RF Rx Instructions: As directed (DME) FreeStyle Chirag 2 [place] Misc See Rx Instructions .ROUTE .MEDSUPPLY Qty: 1 0RF Rx Instructions: As directed omeprazole 40 mg capsule,delayed release(DR/EC) 40 mg PO DAILY Qty: 90 0RF metformin 500 mg tablet 1,000 mg PO BIDCM Qty: 90 1RF loratadine 10 mg tablet 10 mg PO DAILY Qty: 90 0RF magnesium 1 tab PO DAILY Patient Comments: UNAWARE OF STRENGTH alpha lipoic acid 200 mg capsule 200 mg PO TID ferrous sulfate [Feosol] 325 mg (65 mg iron) tablet 325 mg PO DAILY potassium gluconate 600 mg (99 mg) tablet 600 mg PO DAILY calcium carbonate 600 mg calcium (1,500 mg) tablet 600 mg PO DAILY cholecalciferol (vitamin D3) [Vitamin D3] 10 mcg (400 unit) capsule 10 mcg PO DAILY mecobalamin (vitamin B12) 1,000 mcg tablet,chewable 1,000 mcg PO DAILY amlodipine 10 mg Tablet 10 mg PO DAILY Qty: 30 0RF atorvastatin 80 mg tablet 80 mg PO QHS Qty: 30 0RF lamotrigine 150 mg tablet 150 mg PO DAILY olanzapine 2.5 mg tablet 1.25 mg PO QHS nystatin 100,000 unit/gram powder 1 applic topical BID PRN (Reason: rash) prazosin 2 mg capsule 2 mg PO QHS hydrochlorothiazide 12.5 mg tablet 12.5 mg PO DAILY Trulicity 0.75 mg/0.5 mL pen injector 0.75 mg subcut QWEEK Patient Comments: TAKES ON SUNDAY albuterol sulfate 90 mcg/actuation HFA aerosol inhaler 2 puff INHALATION Q4H PRN (Reason: sob) pregabalin 150 mg capsule 150 mg PO TID losartan 50 mg Tablet 50 mg PO BID carvedilol 6.25 mg Tablet 12.5 mg PO BID oxycodone-acetaminophen [Percocet] 5-325 mg tablet 1 tab PO Q8H PRN (Reason: pain) 3 Days Qty: 10 0RF Changed insulin lispro [Humalog KwikPen Insulin] 100 unit/mL insulin pen 30 unit subcut TIDCM 30 Days Qty: 15 4RF Rx Instructions: with meals insulin glargine-yfgn 100 unit/mL (3 mL) Insulin Pen 60 unit subcut BID 30 Days Qty: 0 0RF Held furosemide 40 mg tablet 40 mg PO BID Qty: 60 0RF Hold Instructions: Hold furosemide as patient is already on HCTZ Discontinued biotin 1 mg capsule 1 mg PO DAILY Referrals / Follow Up: Carlos Byrd MD [Med Staff - Active Staff] - Within 1 Month Carlos Claudio MD [Med Staff - Active Staff] - Within 2 Weeks Nelly Michael [employer] [Primary Care Provider] - Within 2 Weeks Disposition Disposition (needs filled in before D/C Order can be placed): Home Health Service
[2024-12-12 10:59] LABS: Bedside Glucose 346 mg/dL (74-106)
--- NOTE | 2024-12-12 11:42 | PCM.DC.SUM ---
Providers Date of Admission: 12/09/24 Date of Discharge: 12/12/24 Primary Care Physician: SILVINA De La Rosa, [employer] Consultations 12/10/24 01:48 Consult: Infectious Disease Routine Consulting Provider: Carlos Byrd Reason for Consult: Recurrent axillary abscesses with hidradenitis suppurativa. EMERGENT Consult: No MD Notified: Yes Date Notified: 12/09/24 Time Notified: 23:18 Method of Notification: Text Consult: Onc/Wound/environmental sustainability manager Routine Comment: Reason for Consult:: Left axillary abscess with drainage. 12/10/24 11:20 Consult: Plastic Surgery Routine Consulting Provider: Carlos Claudio Reason for Consult: B/L MRSA hidraadenitis suppurutiva EMERGENT Consult: No MD Notified: Yes Date Notified: 12/10/24 Time Notified: 11:20 Method of Notification: Text 12/10/24 15:47 Consult: Infectious Disease Routine Consulting Provider: Carlos Byrd Reason for Consult: Bilateral axillary hidradenitis suppurativa. MRSA positive EMERGENT Consult: No MD Notified: Yes Date Notified: 12/10/24 Time Notified: 15:47 Method of Notification: Text Reason For Visit: HYPERGLYCEMIA, LACTIC ACIDOSIS AND DRAINING LEFT Diagnosis Discharge Diagnosis (1) Hyperglycemia due to type 2 diabetes mellitus: Status: Acute Code(s): E11.65 - Type 2 diabetes mellitus with hyperglycemia Qualifiers: Diabetes mellitus residential insulin use: with residential use Qualified Code(s): E11.65 - Type 2 diabetes mellitus with hyperglycemia; Z79.4 - care home (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 of insulin (2) Lactic acidosis: Status: Acute Code(s): E87.20 - Acidosis, unspecified (3) Abscess of axilla, left: Status: Acute Code(s): L02.412 - Cutaneous abscess of left axilla (4) History of MRSA infection: Status: Acute Code(s): Z86.14 - Personal history of Methicillin resistant Staphylococcus aureus infection (5) Fever: Status: Acute Code(s): R50.9 - Fever, unspecified Qualifiers: Fever type: unspecified Qualified Code(s): R50.9 - Fever, unspecified (6) Medical non-compliance: Status: Acute Code(s): Z91.199 - Patient's noncompliance with other medical treatment and regimen due to unspecified reason (7) History of hidradenitis suppurativa: Status: Acute Code(s): Z87.2 - Personal history of diseases of the skin and subcutaneous tissue (8) Morbid obesity with BMI of 45.0-49.9, adult: Status: Acute Code(s): E66.01 - Morbid (severe) obesity due to excess calories; Z68.42 - Body mass index [BMI] 45.0-49.9, adult (9) Tobacco abuse: Status: Acute Code(s): Z72.0 - Tobacco use Plan 39-year-old female admitted with fever 101.5 Fahrenheit at home and had left axillary region abscess drained on 12/08/2024. Patient also had nausea and vomiting. Blood sugar was high at 8600. 1. Infected hidradenitis suppurativa with bilateral abscesses, recently drained with fever: Patient wound MRSA screen is positive. Continue IV antibiotics vancomycin and clindamycin. Plastic surgeon consulted. Wound culture shows 4+ WBC, rare GPC. Will consult ID. Patient is also chronic smoker advised to quit. This worsens hidradenitis suppurativa healing. 12/11: Discussed with ID. Continue IV antibiotics Vanco, ceftriaxone and Flagyl. Will need long-term antibiotic but planning for oral antibiotic at the time of discharge. No plan for debridement as per plastic surgeon but continued packing of axillary and tight control of glucose. 12/12: Patient wants to go home. ID recommended 1 week course of linezolid, cefdinir and Flagyl. Prescriptions given. Follow-up in wound center with Dr. Escalante 2. DM type II with uncontrolled hyperglycemia: A1c 14.4% this admission: Patient on metformin, dulaglutide, insulin glargine 38 securities twice daily and lispro 10 units subcu 3 times daily. Accu-Chek before meals and at bedtime with Humalog sliding scale coverage and hypoglycemia protocol. Monitor glucose and titrate accordingly. 5/plan: Discharge from Humalog insulin 30 r-exoprotein meals 3 times daily with meal and Lantus insulin 60 units subcutaneous twice daily with holding parameters for insulin if glucose less than 130 mg/dl. Follow-up PCP Roberto Villegas 3. Morbid obesity; with BMI of 45.3 KG per square meter weight loss counseling done. Patient is also chronically smoker 4. Essential hypertension; on amlodipine, losartan, carvedilol twice daily and furosemide twice daily -BP 145/76, it was high at the time of admission. decrease the dose of furosemide from twice daily to once daily. Hyperlipidemia; on atorvastatin -statin resumed Chronic comorbidities includes fibromyalgia, seizure on lamotrigine, bipolar disorder on olanzapine. Tentative diagnosis of Multiple Sclerosis; with multiple plaques noted on brain and spinal cord and treatment yet to be initiated -follow-up outpatient DVT prophylaxis - Enoxaparin 40 mg sq BID. Discharge medication reconciliation done. Discharge follow-up instructions completed. Discharge process discussed with the patient and all questions were answered to patient's satisfaction. Follow with PCP in 1 to 2 weeks Total time spent, exact 35 minutes on discharge meds reconciliation, examination, coordination of care with nurses and ancillary staff, review of imaging and blood test and discussion with the patient on follow-up instructions. Medications at Discharge Home Medications lactobacillus combination no.9 4 billion cell capsule (Adult 50 Plus Probiotic) 4,000 mmu cells PO DAILY supplement 01/06/22 flash glucose scanning reader (FreeStyle Chirag 2 [place]) #1 ea 01/30/23 flash glucose sensor (FreeStyle Chirag 2 Sensor kit) #2 ea 01/30/23 loratadine 10 mg tablet 10 mg PO DAILY allergies #90 tabs 01/30/23 metformin 500 mg tablet 1,000 mg (2 x 500 mg) PO BIDCM diabetes #90 tabs 01/30/23 omeprazole 40 mg capsule,delayed release 40 mg PO DAILY GERD #90 caps 01/30/23 albuterol sulfate 90 mcg/actuation aerosol inhaler 2 puff inhalation Q4H PRN sob 06/08/24 pregabalin 150 mg capsule 150 mg PO TID pain 06/08/24 losartan 50 mg tablet 50 mg PO BID blood pressure 08/13/24 alpha lipoic acid 200 mg capsule 200 mg PO TID supplement 09/17/24 calcium carbonate 600 mg PO DAILY supplement 09/17/24 cholecalciferol (vitamin D3) 10 mcg (400 unit) capsule (Vitamin D3) 10 mcg PO DAILY vitamin 09/17/24 ferrous sulfate 325 mg (65 mg iron) tablet (Feosol) 325 mg PO DAILY supplement 09/17/24 magnesium 1 tab PO DAILY supplement 09/17/24 mecobalamin (vitamin B12) 1,000 mcg chewable tablet 1,000 mcg PO DAILY vitamin 09/17/24 potassium gluconate 600 mg (99 mg) tablet 600 mg PO DAILY supplement 09/17/24 amlodipine 10 mg tablet 10 mg PO DAILY #30 tabs 09/18/24 atorvastatin 80 mg tablet 80 mg PO QHS #30 tabs 09/18/24 furosemide 40 mg tablet 40 mg PO BID #60 tabs 09/18/24 Held on 12/12/24. Instructions: Hold furosemide as patient is already on HCTZ carvedilol 6.25 mg tablet 12.5 mg PO BID 12/08/24 oxycodone-acetaminophen 5 mg-325 mg tablet (Percocet) 1 tab PO Q8H PRN pain 3 days #10 tabs 12/08/24 dulaglutide 0.75 mg/0.5 mL subcutaneous pen injector (Trulicity) 0.75 mg subcut QWEEK 12/09/24 hydrochlorothiazide 12.5 mg tablet 12.5 mg PO DAILY 12/09/24 lamotrigine 150 mg tablet 150 mg PO DAILY 12/09/24 nystatin 100,000 unit/gram topical powder 1 applic topical BID PRN rash 12/09/24 olanzapine 2.5 mg tablet 1.25 mg PO QHS 12/09/24 prazosin 2 mg capsule 2 mg PO QHS 12/09/24 cefdinir 300 mg capsule 300 mg PO BID 1 week #14 caps 12/12/24 insulin glargine-yfgn 100 unit/mL (3 mL) subcutaneous pen 60 unit (0.6 mL) subcut BID 30 days #0 mL 12/12/24 insulin lispro 100 unit/mL subcutaneous pen (Humalog KwikPen (U-100) Insulin) 30 unit (0.3 mL) subcut TIDCM diabetes 1 month #15 mL 12/12/24 linezolid 600 mg tablet 600 mg PO BID 1 week #14 tabs 12/12/24 metronidazole 500 mg tablet 500 mg PO Q8H 7 days #21 tabs 12/12/24 nicotine 14 mg/24 hr daily transdermal patch 14 mg transdermal DAILY 28 days #28 ea 12/12/24 Physical Exam Narrative Patient wants to go home. She has induration about her axillary region but it is healing Physical exam: General: Alert, Oriented x3, Cooperative HEENT: Atraumatic, PERRLA, EOMI, Normocephalic. Oral: No Gingival or Mucosal Lesions/ Ulcerations Neck: Supple, No JVD, Negative Carotid Bruits Chest wall/Lungs: Air entry diminished in bilateral lung bases. No crepitation/rhonchi Cardiovascular: Regular rate and rhythm, Normal S1,S2, No M/G/R Abdomen: Bowel Sounds Present, Soft, Non Tender, Non-Distended : No dysuria. No renal angle tenderness. No suprapubic tenderness. Extremities: No edema, Capillary Refill Less than 3 Seconds Skin: No rashes, No breakdown Musculoskeletal: No Tenderness to Palpation of Joints or Extremities Neurological: Cranial nerves II-XII grossly intact, DTR 2+/4. No acute focal neurological deficit. Psych/Mental Status: Normal Affect, Appropriate. Weight / BMI Weight Weight: 297 lb 9.985 oz Body Mass Index (BMI) 44.0 ABG / Lab / Microbiology Data 12/12/24 06:05 12/12/24 06:05 Laboratory: Laboratory Results - last 24 hr 12/11/24 12:02: POC Glucose 296 H 12/11/24 14:40: Vancomycin Trough 21.0 H 12/11/24 16:18: POC Glucose 453 H* 12/11/24 20:20: POC Glucose 447 H 12/12/24 05:58: POC Glucose 332 H 12/12/24 06:05: WBC 4.9, RBC 3.40 L, Hgb 9.5 L, Hct 28.6 L, MCV 84.1, MCH 27.9, MCHC 33.2, RDW Std Deviation 42.7, RDW Coeff of Amada 13.9, Plt Count 163, MPV 12.6 H, Immature Gran % (Auto) 0.600, Neut % (Auto) 60.5, Lymph % (Auto) 23.6, Dane % (Auto) 9.4, Eos % (Auto) 5.3 H, Baso % (Auto) 0.6, Absolute Neuts (auto) 3.0, Absolute Lymphs (auto) 1.15, Nucleated RBC % 0, Sodium 133, Potassium 4.2, Chloride 103, Carbon Dioxide 22.4, Anion Gap 8, BUN 19, Creatinine 1.10, Estim Creat Clear Calc 99.58, Est GFR (MDRD) Non-Af 65, BUN/Creatinine Ratio 17.5, Glucose 348 H, Calcium 8.3, Random Vancomycin 10.4 12/12/24 10:30: POC Glucose 346 H Microbiology: Microbiology 12/10/24 05:55 Wound - Axilla, Left Gram Stain - Final 12/10/24 05:55 Wound - Axilla, Left Wound Culture - Final Meth. resistant Staph. aureus 12/09/24 22:06 Blood Culture (Wb) - Right Hand Blood Culture - Preliminary No growth in 48 hours. 12/09/24 22:04 Blood Culture (Wb) - Anticubital Left Blood Culture - Preliminary No growth in 48 hours. D/C Instructions Discharge Diet: Low fat / Low cholesterol, 1800 Calorie Control Diet and 2000 mg Sodium Diet Weight Bearing Status: Weight bearing as tolerated Call your doctor if you observe: Fever of 101 or Higher, Coldness, Increased Pain, Numbness or Tingling, Change in Color, Inability to urinate, Inability to have a bowel movement, Shortness of breath, Dizziness, Fainting spells, Swelling in the ankles, Chest pain, Prolonged hiccupping, Increased palpitations (irregular heartbeat) and Calf discomfort DC O2, CPAP, BIPAP Needs Home O2 Discharge instructions: No When: IN 2 WEEKS Meaningful Use Info Meaningful Use Meaningful Use Diagnoses (Choose all that apply): None applicable Ischemic Stroke Statin Dosing Therapy Reference: STATIN DOSE THERAPY REFERENCE: * Patients > 75 years receive moderate or high dose statin therapy. * Patients 75 years or YOUNGER should receive HIGH intensity statin dose unless contraindicated. You will be required to document reason for non-treatment if statin daily dose does not meet guidelines. HIGH DOSE STATIN THERAPY DAILY Atorvastatin > than or = to 40 mg Rosuvastatin > than or = to 20 mg Amlodipine + Atorvastatin > than or = to 2.5/40 mg Ezetimibe + Simvastatin 10/80 mg Simvastatin 80mg Discharge Plan Admission Admit Date/Time: 12/09/24 23:13 Primary Reason for Your Visit: MRSA hidradenitis suppurativa Attending Provider: Viral Beckman Primary Care Provider: Nelly Michael [facility] Consulting Providers: Reilly Weinstein; Carlos Byrd; Carlos Claudio Discharge Orders/Prescriptions Prescriptions: New nicotine 14 mg/24 hr Patch 24 Hour 14 mg transdermal DAILY 28 Days Qty: 28 0RF linezolid 600 mg tablet 600 mg PO BID 7 Days Qty: 14 0RF cefdinir 300 mg capsule 300 mg PO BID 7 Days Qty: 14 0RF metronidazole 500 mg tablet 500 mg PO Q8H 7 Days Qty: 21 0RF Continued Adult 50 Plus Probiotic 4 billion cell capsule 4,000 mmu cells PO DAILY (DME) FreeStyle Chirag 2 Sensor Kit See Rx Instructions .ROUTE .MEDSUPPLY Qty: 2 1RF Rx Instructions: As directed (DME) FreeStyle Chirag 2 [place] Misc See Rx Instructions .ROUTE .MEDSUPPLY Qty: 1 0RF Rx Instructions: As directed omeprazole 40 mg capsule,delayed release(DR/EC) 40 mg PO DAILY Qty: 90 0RF metformin 500 mg tablet 1,000 mg PO BIDCM Qty: 90 1RF loratadine 10 mg tablet 10 mg PO DAILY Qty: 90 0RF magnesium 1 tab PO DAILY Patient Comments: UNAWARE OF STRENGTH alpha lipoic acid 200 mg capsule 200 mg PO TID ferrous sulfate [Feosol] 325 mg (65 mg iron) tablet 325 mg PO DAILY potassium gluconate 600 mg (99 mg) tablet 600 mg PO DAILY calcium carbonate 600 mg calcium (1,500 mg) tablet 600 mg PO DAILY cholecalciferol (vitamin D3) [Vitamin D3] 10 mcg (400 unit) capsule 10 mcg PO DAILY mecobalamin (vitamin B12) 1,000 mcg tablet,chewable 1,000 mcg PO DAILY amlodipine 10 mg Tablet 10 mg PO DAILY Qty: 30 0RF atorvastatin 80 mg tablet 80 mg PO QHS Qty: 30 0RF lamotrigine 150 mg tablet 150 mg PO DAILY olanzapine 2.5 mg tablet 1.25 mg PO QHS nystatin 100,000 unit/gram powder 1 applic topical BID PRN (Reason: rash) prazosin 2 mg capsule 2 mg PO QHS hydrochlorothiazide 12.5 mg tablet 12.5 mg PO DAILY Trulicity 0.75 mg/0.5 mL pen injector 0.75 mg subcut QWEEK Patient Comments: TAKES ON SUNDAY albuterol sulfate 90 mcg/actuation HFA aerosol inhaler 2 puff INHALATION Q4H PRN (Reason: sob) pregabalin 150 mg capsule 150 mg PO TID losartan 50 mg Tablet 50 mg PO BID carvedilol 6.25 mg Tablet 12.5 mg PO BID oxycodone-acetaminophen [Percocet] 5-325 mg tablet 1 tab PO Q8H PRN (Reason: pain) 3 Days Qty: 10 0RF Changed insulin lispro [Humalog KwikPen Insulin] 100 unit/mL insulin pen 30 unit subcut TIDCM 30 Days Qty: 15 4RF Rx Instructions: with meals insulin glargine-yfgn 100 unit/mL (3 mL) Insulin Pen 60 unit subcut BID 30 Days Qty: 0 0RF Held furosemide 40 mg tablet 40 mg PO BID Qty: 60 0RF Hold Instructions: Hold furosemide as patient is already on HCTZ Discontinued biotin 1 mg capsule 1 mg PO DAILY Referrals / Follow Up: Carlos Byrd MD [Med Staff - Active Staff] - Within 1 Month Carlos Claudio MD [Med Staff - Active Staff] - Within 2 Weeks Nelly Michael, [employer] [Primary Care Provider] - Within 2 Weeks Disposition Disposition (needs filled in before D/C Order can be placed): Home Health Service Charges/Coding Visit Charges Inpatient E&M: 08332 Disch Hosp >30min
[2024-12-12] MEDS: Insulin Lispro 100 UNIT/ML INSULN.PEN 30 UNIT SC (11:56)
[2024-12-12] MEDS: Ferrous Sulfate 325 MG Tablet PO (12:00)
[2024-12-12 12:17] LABS: Bedside Glucose 356 mg/dL (74-106)
--- NOTE | 2024-12-12 12:24 | PHA.DC.MC.R ---
Pharmacy [facility] has performed discharge medication reconciliation and counseling for this patient. The patient's discharge medication list was reviewed for discrepancies and discrepancies were resolved. The patient was counseled on the following discharge medications and changes in medications for homegoing were reviewed. The Reason for Use, instructions for use, and potential side effects were reviewed for all new medications. The patient's questions regarding all of their medications were answered. 1. Cefdinir 300 mg PO BID x 7 days 2. Linezolid 600 mg PO BID x 7 days 3. Metronidazole 500 mg PO TID x 7 days 4. Nicotine 14 mg patch daily The patient was able to verbally demonstrate an understanding of their discharge medications. Medications at Discharge Home Medications lactobacillus combination no.9 4 billion cell capsule (Adult 50 Plus Probiotic) 4,000 mmu cells PO DAILY supplement 01/06/22 flash glucose scanning reader (Record[employer]Style Chirag 2 [place]) #1 ea 01/30/23 flash glucose sensor (FreeStyle Chirag 2 Sensor kit) #2 ea 01/30/23 loratadine 10 mg tablet 10 mg PO DAILY allergies #90 tabs 01/30/23 metformin 500 mg tablet 1,000 mg (2 x 500 mg) PO BIDCM diabetes #90 tabs 01/30/23 omeprazole 40 mg capsule,delayed release 40 mg PO DAILY GERD #90 caps 01/30/23 albuterol sulfate 90 mcg/actuation aerosol inhaler 2 puff inhalation Q4H PRN sob 06/08/24 pregabalin 150 mg capsule 150 mg PO TID pain 06/08/24 losartan 50 mg tablet 50 mg PO BID blood pressure 08/13/24 alpha lipoic acid 200 mg capsule 200 mg PO TID supplement 09/17/24 calcium carbonate 600 mg PO DAILY supplement 09/17/24 cholecalciferol (vitamin D3) 10 mcg (400 unit) capsule (Vitamin D3) 10 mcg PO DAILY vitamin 09/17/24 ferrous sulfate 325 mg (65 mg iron) tablet (Feosol) 325 mg PO DAILY supplement 09/17/24 magnesium 1 tab PO DAILY supplement 09/17/24 mecobalamin (vitamin B12) 1,000 mcg chewable tablet 1,000 mcg PO DAILY vitamin 09/17/24 potassium gluconate 600 mg (99 mg) tablet 600 mg PO DAILY supplement 09/17/24 amlodipine 10 mg tablet 10 mg PO DAILY #30 tabs 09/18/24 atorvastatin 80 mg tablet 80 mg PO QHS #30 tabs 09/18/24 furosemide 40 mg tablet 40 mg PO BID #60 tabs 09/18/24 Held on 12/12/24. Instructions: Hold furosemide as patient is already on HCTZ carvedilol 6.25 mg tablet 12.5 mg PO BID 12/08/24 oxycodone-acetaminophen 5 mg-325 mg tablet (Percocet) 1 tab PO Q8H PRN pain 3 days #10 tabs 12/08/24 dulaglutide 0.75 mg/0.5 mL subcutaneous pen injector (Trulicity) 0.75 mg subcut QWEEK 12/09/24 hydrochlorothiazide 12.5 mg tablet 12.5 mg PO DAILY 12/09/24 lamotrigine 150 mg tablet 150 mg PO DAILY 12/09/24 nystatin 100,000 unit/gram topical powder 1 applic topical BID PRN rash 12/09/24 olanzapine 2.5 mg tablet 1.25 mg PO QHS 12/09/24 prazosin 2 mg capsule 2 mg PO QHS 12/09/24 cefdinir 300 mg capsule 300 mg PO BID 1 week #14 caps 12/12/24 insulin glargine-yfgn 100 unit/mL (3 mL) subcutaneous pen 60 unit (0.6 mL) subcut BID 30 days #0 mL 12/12/24 insulin lispro 100 unit/mL subcutaneous pen (Humalog KwikPen (U-100) Insulin) 30 unit (0.3 mL) subcut TIDCM diabetes 1 month #15 mL 12/12/24 linezolid 600 mg tablet 600 mg PO BID 1 week #14 tabs 12/12/24 metronidazole 500 mg tablet 500 mg PO Q8H 7 days #21 tabs 12/12/24 nicotine 14 mg/24 hr daily transdermal patch 14 mg transdermal DAILY 28 days #28 ea 12/12/24
--- NOTE | 2024-12-12 12:36 | CASEMGMT ---
Social Work Discharge information faxed to Lenora Reilly pt's care consultant at [facility] notifying of discharge home today with home health SN. MIRYAM Alejandro
[2024-12-12 13:16] VITALS: BP 158/80; PULSE 81; RESP 18; TEMP 37.1; O2SAT 97
== END 2024-12-12 13:37 | disposition home health service (06) | DRG 603 ==
LOC: ED 23:10 → MS3 23:54
PROVIDERS: Internal Medicine Infectious Disease; Admitting Provider Internal Medicine; Emergency Provider Emergency Medicine; PCP Nurse Practitioner Family; Visit Provider Internal Medicine
DX: L02.412 Cutaneous abscess of left axilla (principal); E87.20 Acidosis, unspecified; Z68.42 Body mass index [BMI] 45.0-49.9, adult; E11.65 Type 2 diabetes mellitus with hyperglycemia; E11.42 Type 2 diabetes mellitus with diabetic polyneuropathy; E66.01 Morbid (severe) obesity due to excess calories; B95.62 Methicillin resistant Staphylococcus aureus infection as the cause of diseases classified elsewhere; G35 Multiple sclerosis; G40.909 Epilepsy, unspecified, not intractable, without status epilepticus; F31.9 Bipolar disorder, unspecified; I10 Essential (primary) hypertension; F60.3 Borderline personality disorder; M79.7 Fibromyalgia; Z79.4 Long term (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 of insulin; E78.5 Hyperlipidemia, unspecified; F17.290 Nicotine dependence, other tobacco product, uncomplicated; L73.2 Hidradenitis suppurativa; F43.10 Post-traumatic stress disorder, unspecified; Z86.16 Personal history of COVID-19; Z79.891 Long term (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 of opiate analgesic; Z83.3 Family history of diabetes mellitus; F90.9 Attention-deficit hyperactivity disorder, unspecified type; Z79.84 Long term (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 of oral hypoglycemic drugs; Z79.85 Long-term (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 of injectable non-insulin antidiabetic drugs; Z82.49 Family history of ischemic heart disease and other diseases of the circulatory system; L02.411 Cutaneous abscess of right axilla; Z91.199 Patient's noncompliance with other medical treatment and regimen due to unspecified reason; Z87.2 Personal history of diseases of the skin and subcutaneous tissue; Z79.899 Other long term (current) drug therapy; Z86.14 Personal history of Methicillin resistant Staphylococcus aureus infection
CPT/HCPCS: 36415; 73201; 80048; 80053; 80202; 80307; 81001; 81025; 82010; 82962; 83036; 83605; 83735; 84100; 84443; 85025; 87040; 87070; 87077; 87186; 87205; 87640; 94668; 97802; 99284; 99285; 99406; Q9967; A4216; J0696; J2405

== ENCOUNTER → 2024-12-17 | Outpatient (CLI) | payer MEDICARE, MEDICAID, SELFPAY ==
[2024-12-17 12:48] LABS: Absolute Lymphocyte Count 1.41 X10^3/uL (0.83-4.51); Basophil# 0.05 X10^3/uL; Basophil% 0.7 % (0-1); Eosinophil# 0.23 X10^3/uL; Eosinophils% 3.2 % (0-5); Hematocrit 31.8 % (37-47); Hemoglobin 10.5 g/dL (12.0-15.0); Lymphocyte # 1.41 X10^3/ul (0.83-4.51); Lymphocyte % 19.5 % (19-41); Mean Corpuscular Hgb 27.5 pg (27.0-32.0); Mean Corpuscular Volume 83.2 fL (81-99); Mean Platelet Vol. 11.8 fl (6.2-12.0); Monocyte% 6.9 % (0-10); NRBC Flagged by Analyzer 0 % (0-5); Neutrophil # 4.96 X10^3/uL (2.7-7.7); Neutrophil % 68.5 % (47-70); Platelet Count 199 K/mm3 (150-450); RBC Distribution Width CV 14.2 % (11.6-14.6); RBC Distribution Width SD 42.5 fl (35.1-43.9); Red Blood Count 3.82 M/mm3 (4.2-5.4); White Blood Count 7.2 K/mm3 (4.4-11.0)
[2024-12-17 13:18] LABS: ALB/GLOB Ratio 1.2 RATIO (0.9-2.4); AST(SGOT) 21 U/L (<=31); Alanine Aminotransfer ALT/SGPT 36 U/L (<=34); Albumin, Serum 3.7 g/dL (3.5-5.0); Alkaline Phosphatase 190 U/L (35-104); Anion Gap 11 (5-15); BUN 26 mg/dL (4-19); BUN/Creat Ratio 24.1 RATIO (10-20); Carbon Dioxide 22.7 mmol/L (21.0-32.0); Chloride 99 mmol/L (98-108); Creatinine, Serum 1.07 mg/dL (0.70-1.20); EST Glomerular Filtration Rate 67 (>60); Globulin 3.1 g/dL (2.2-4.2); Glucose 377 mg/dL (70-99); Potassium 4.5 mmol/L (3.3-5.1); Pro- Brain NATRIURETIC PEPTIDE 481 pg/mL (<=450); Protein, Total 6.8 g/dL (5.9-8.4); Sodium Level 133 mmol/L (133-145); Total Bilirubin 0.26 mg/dL (0.00-1.30)
[2024-12-18 05:07] LABS: HEPATITIS B SURFACE AG Negative (Negative); Hep C Antibodies Non Reactive (Non Reactive); Hepatitis A IgM Antibody Negative (Negative); Hepatitis B Core AB IgM Negative (Negative)
== END | disposition home or self-care (01) ==
LOC: VSLAB 12:19
PROVIDERS: PCP Nurse Practitioner Family
DX: E11.9 Type 2 diabetes mellitus without complications (principal); I50.9 Heart failure, unspecified; L02.412 Cutaneous abscess of left axilla; R30.0 Dysuria; R74.01 Elevation of levels of liver transaminase levels
CPT/HCPCS: 36415; 80053; 80074; 83880; 85025; 87086